=== PATIENT | female | born 1955 | race Caucasian/White ===

== ENCOUNTER 2017-09-30 16:49 | Emergency (ER) | payer MEDICAID, SELFPAY ==
[2017-09-30] VITALS (7 sets, daily range): BP systolic 103–118; BP diastolic 59–80; PULSE 82–109; RESP 18–29; TEMP 37.1; O2SAT 80–96; BMI 20.7
--- NOTE | 2017-09-30 16:53 | EKG12_ITS ---
Test Reason : CP/SOB Blood Pressure : / mmHG Vent. Rate : 107 BPM Atrial Rate : 107 BPM P-R Int : 150 ms QRS Dur : 092 ms QT Int : 328 ms P-R-T Axes : 057 002 061 degrees QTc Int : 437 ms Sinus tachycardia with frequent Premature ventricular complexes Otherwise normal ECG Confirmed by NOAH COTTON, ALAN ([id number]), electronic news gathering editor LAZARO LOBO ([id number]) on 10/04/2017 2:17:17 PM Referred By: IRKI/DAISY Confirmed By:ALAN ZAMORA MD
[2017-09-30] MEDS: Ipratropium/Albuterol Sulfate 3 ML AMPUL.NEB INHALATION (17:00)
--- NOTE | 2017-09-30 17:00 | RAD_ITS ---
XR Chest 1 View INDICATION: SOB/DYSPNEA COMPARISON: June 05, 2016 TECHNIQUE: Portable chest x-ray FINDINGS: Heart size and pulmonary vascularity are within normal limits. Lungs are hyperinflated with coarsened interstitial markings and flattening of the diaphragm, unchanged from previous exam. There is no evidence of focalconsolidation or pleural effusion. Osseous structures are grossly unremarkable. RAD/Chest 1 View (Portable) IMPRESSION: Stable COPD/emphysema. No active infiltrate. at 1736 Reported and signed by: Jeni Cintron MD Electronically Signed: Jeni Cintron MD at 16:34 EDT Tel , Service support ,
[2017-09-30] MEDS: MethylPREDNISolone 125 MG/2 ML Vial IV (17:14)
--- NOTE | 2017-09-30 17:18 | ED.VISSUMM ---
- ER Visit Summary Date of Service: 09/30/17 Chief Complaint: [] Shortness of breath History of Present Illness: The patient is a 62 F [] history of COPD on home O2 3 L primarily at night, reports that for 4 days she has had cough shortness of breath low-grade fever she was seen by her physicians Wednesday workup was generally unremarkable she was started on oral steroids and placed on a doxycycline prescription [id number] not use until Wednesday she seemed more short of breath today and she came in for evaluation, the rest of her health status is stable and unchanged she has no chest pain abdominal pain no paresthesias the daughter came in and states that sometimes her mother seems to get nervous and anxious related to the breathing her baseline pulse ox on 3 L is about 91% max currently the patient's on oxygen she received an aerosol she is feeling better at her baseline Physical Examination: [] Her pulse ox here on 3 L about 93% she is awake and alert answering questions appropriately there is no signs of respiratory distress or cardiopulmonary failure her neck is unremarkable her lungs are diminished the heart tones are distant the abdomen soft nontender upper lower extremities unremarkable she is a thin woman neurologically she is awake alert moving all 4 Test Results: [] Emergency Department Course and Treatment: [] The patient is back to her baseline now she does see Dr. Monet of pulmonary she has been having this intermittent spells of shortness of breath for some time dating back to May 2017 when she reports that her inhalers were changed due to insurance issues, and that basically she is currently on DuoNeb and one other inhaler. However despite the change she was at baseline until Wednesday. She has no history of PA PE or DVT Her EKG sinus rhythm her labs chest x-ray otherwise unremarkable nothing really acute please see all those reports on reevaluation she is much better her pulse ox remained stable she was given a dose of doxycycline here she has a prescription to use at home she is comfort with discharge home follow with her physicians as this is an ongoing intermittent shortness of breath problem. Her BNP has not returned and has been hours there may be an issue in lab with that machine but she has no history of CHF radiographic or physical findings She is concerned that the medication she was taking in April 2017 that were switched to new medications related to insurance reasons, she actually felt better on the older meds I have asked her to discuss that with her physicians and her insurance providers but again she is comfortable with discharge home Treatment Plan: [] Disposition: [] Home stable Impression: [] Exacerbation of COPD This note was generated with Xquva dictation software. It may contain incorrect words, spelling, and punctuation that were not noted in review of the chart prior to signing ED Disposition - Plan for ED Patient: Chief Complaint: Shortness of Breath Referrals: Krish Martinez MD [Primary Care Provider] -
[2017-09-30 18:15] LABS: Absolute Lymphocyte Count 0.52 X10^3/ul (0.83-4.51); Absolute Neutrophil Count 10.3 X10^3/uL (2.0-7.7); Basophil# 0.01 X10^3/uL; Basophil% 0.1 % (0-1); Eosinophil# 0.01 X10^3/uL; Eosinophils% 0.1 % (0-5); Hematocrit 36.3 % (37-47); Hemoglobin 12.1 g/dl (12.0-15.0); Lymphocyte # 0.52 X10^3/ul (4.0); Lymphocyte % 4.5 % (19-41); Mean Corp Hgb Conc 33.3 g/gl (32-36); Mean Corpuscular Hgb 30.6 pg (27.0-32.0); Mean Corpuscular Volume 91.7 fL (81-99); Mean Platelet Vol. 9.6 fl (6.2-12.0); Monocyte# 0.73 X10^3/uL; Monocyte% 6.3 % (0-10); Neutrophil # 10.25 X10^3/uL (2.7-7.7); Neutrophil % 88.7 % (47-70); Platelet Count 250 K/mm3 (150-450); RBC Distribution Width CV 12.3 % (11.6-14.6); RBC Distribution Width SD 40.3 fl (35.1-43.9); Red Blood Count 3.96 M/mm3 (4.2-5.4); White Blood Count 11.6 K/mm3 (4.4-11.0)
[2017-09-30 18:18] LABS: Anion Gap 7 (5-15); BUN 7 mg/dL (7-18); BUN/Creat Ratio 12.7 RATIO (10-20); Calcium,Total 8.4 mg/dL (8.5-10.1); Chloride 99 mmol/L (98-107); Creatinine, Serum 0.55 mg/dL (0.55-1.02); EST Glomerular Filtration Rate 119 mL/min (>60); Est Glom Filt Rate - Afr Amer 144 mL/min (>60); Estimated Creatinine Clearance 89.98 ml/min; Glucose 103 mg/dL (74-106); Potassium 3.9 mmol/L (3.5-5.1); Sodium Level 133 mmol/L (136-145)
[2017-09-30 18:19] LABS: Differential Indicated SCAN CRITERIA MET; POSITIVE COUNT NO; POSITIVE DIFFERENTIAL YES; POSITIVE MORPHOLOGY NO
[2017-09-30] MEDS: Doxycycline 100 MG CAPSULE PO (18:51)
--- NOTE | 2017-09-30 19:18 | ED.DEP ---
ED Disposition - Plan for ED Patient: Chief Complaint: Shortness of Breath Instructions: ED COPD Flare Referrals: Krish Martinez MD [Primary Care Provider] -
[2017-09-30 19:22] LABS: BNP,B-Type NATRIURETIC PEPTIDE 70.5 pg/mL (0-100)
[2017-09-30 19:46] LABS: Differential Comment SCANNED; Platelet Estimate ADEQUATE (ADEQ)
== END 2017-09-30 19:48 | disposition home or self-care (01) ==
PROVIDERS: Emergency Provider Emergency Medicine; Family Provider Family Medicine; PCP Family Medicine
DX: J44.1 Chronic obstructive pulmonary disease with (acute) exacerbation (principal); Z99.81 Dependence on supplemental oxygen; Z79.52 Long term (current) use of systemic steroids; Z79.899 Other long term (current) drug therapy
CPT/HCPCS: 71045; 80048; 83880; 84484; 85025; 93005; 94640; 96374; 99284; A4216

== ENCOUNTER 2017-10-16 10:20 | Inpatient (IN) | payer MEDICAID, SELFPAY ==
[2017-10-16] VITALS (8 sets, daily range): BP systolic 88–124; BP diastolic 43–66; PULSE 20–120; RESP 17–29; TEMP 36.7–38.2; O2SAT 92–98; BMI 20.8; BMI 20.5
--- NOTE | 2017-10-16 10:42 | EKG12_ITS ---
Test Reason : SOB Blood Pressure : / mmHG Vent. Rate : 105 BPM Atrial Rate : 105 BPM P-R Int : 176 ms QRS Dur : 092 ms QT Int : 342 ms P-R-T Axes : 041 -04 057 degrees QTc Int : 452 ms Sinus tachycardia Otherwise normal ECG Confirmed by LE COTTON, RACHEAL ([id number]), purchase request editor LAZARO LOBO ([id number]) on 10/18/2017 1:57:58 PM Referred By: MICHELLE Confirmed By:RACHEAL LUJAN MD
--- NOTE | 2017-10-16 10:42 | RAD_ITS ---
STUDY: X-RAY CHEST REASON FOR EXAM: Female, 62 years old. Not feeling well, cough. TECHNIQUE: PA and lateral views of the chest. COMPARISON: None. FINDINGS: There is hyperinflation of the lungs consistent with chronic obstructive lung disease (COPD). There is developing right lower lobe airspace disease compared to previous exam. Small right effusion is present. There is no demonstrated pleural abnormality. Normal size heart. Normal mediastinum and krishna. Normal visualized pulmonary arteries. There is atherosclerotic calcification of the aortic arch with tortuosity. There are diffuse degenerative changes of the visualized thoracic spine. Normal visualized ribs, clavicles, and shoulders. There is no demonstrated abnormality of the visualized soft tissue structures of the upper abdomen. RAD/Chest PA and Lateral IMPRESSION: COPD changes with developing right lower lobe airspace disease and effusion concerning for acute infectious infiltrate, clinically correlate. Electronically Signed: Benjamin Munoz DO at 12:05 EDT , Service support ,
[2017-10-16] MEDS: MethylPREDNISolone 125 MG/2 ML Vial IV (10:55)
[2017-10-16] MEDS: Ipratropium/Albuterol Sulfate 3 ML AMPUL.NEB INHALATION (10:55)
[2017-10-16] MEDS: 0.9% Normal Saline 1,000 ML 999 ML IV (10:56)
[2017-10-16 11:11] LABS: Absolute Lymphocyte Count 0.61 X10^3/ul (0.83-4.51); Absolute Neutrophil Count 11.3 X10^3/uL (2.0-7.7); Basophil# 0.02 X10^3/uL; Basophil% 0.2 % (0-1); Eosinophil# 0.01 X10^3/uL; Eosinophils% 0.1 % (0-5); Hematocrit 40.1 % (37-47); Lymphocyte # 0.61 X10^3/ul (4.0); Lymphocyte % 4.9 % (19-41); Mean Corp Hgb Conc 32.4 g/gl (32-36); Mean Corpuscular Hgb 30.4 pg (27.0-32.0); Mean Corpuscular Volume 93.9 fL (81-99); Mean Platelet Vol. 9.5 fl (6.2-12.0); Monocyte# 0.57 X10^3/uL; Monocyte% 4.6 % (0-10); Neutrophil # 11.27 X10^3/uL (2.7-7.7); Platelet Count 200 K/mm3 (150-450); RBC Distribution Width CV 13.3 % (11.6-14.6); RBC Distribution Width SD 44.4 fl (35.1-43.9); Red Blood Count 4.27 M/mm3 (4.2-5.4); White Blood Count 12.5 K/mm3 (4.4-11.0)
[2017-10-16 11:12] LABS: POSITIVE COUNT NO; POSITIVE DIFFERENTIAL NO; POSITIVE MORPHOLOGY NO
[2017-10-16 11:18] LABS: Bacteria 0 SEEN /hpf (None Seen); Mucous, Urine 0 SEEN /hpf (<or=2+); Squamous Epithelial Cells - UA 0 SEEN /hpf (5-10); White Blood Cells 0 SEEN /hpf (0-5)
[2017-10-16 11:26] LABS: Anion Gap 9 (5-15); BUN 8 mg/dL (7-18); BUN/Creat Ratio 10.7 RATIO (10-20); Calcium,Total 8.4 mg/dL (8.5-10.1); Chloride 102 mmol/L (98-107); Creatinine, Serum 0.75 mg/dL (0.55-1.02); EST Glomerular Filtration Rate 84 mL/min (>60); Est Glom Filt Rate - Afr Amer 102 mL/min (>60); Estimated Creatinine Clearance 63.09 ml/min; Glucose 100 mg/dL (74-106); Potassium 3.6 mmol/L (3.5-5.1); Sodium Level 140 mmol/L (136-145)
[2017-10-16 11:34] LABS: Lactic Acid 1.2 mmol/L (0.4-2.0)
--- NOTE | 2017-10-16 11:34 | ED.DCSUM_ITS ---
- ER Visit Summary Date of Service: 10/16/17 Chief Complaint: Shortness of breath and cough History of Present Illness: The patient is a [address] Martinez and Dr. Viera. She reports that she has a cough that began yesterday. Is productive saucedo sputum without blood. She has had subjective fever and chills with this. She reports that she has severe shortness of breath at worst and moderate currently. Is worsened by exertion, lying flat, or coughing. States that she has been nauseated, but has not thrown up. She also complains of frequency and generalized weakness. Physical Examination: Vitals: 100.1, 124/64, 120, 17, 90% on 2 L nasal cannula. General: Well-nourished and well-developed. Head: Normocephalic atraumatic. Neck: Supple, no lymphadenopathy. No JVD. Nontender. Cardiovascular: Tachycardic regular rhythm. No murmurs. Respiratory: No respiratory distress. Mild wheezing bilaterally with greatly decreased air movement. Abdominal: Soft, nontender, nondistended, normal bowel sounds. No guarding, rebound, or peritoneal signs. Back: Nontender. Extremities: Nontender, no edema. Skin: Normal color, no rash. Neurologic: Alert and oriented ?3. Cranial nerves II through XII are intact. Normal strength and sensation. Psych: Normal affect. Test Results: EKG is sinus tach at 105 with no acute changes. CBC is marked for white count 12.5 with 90 segmented neutrophils and 5 lymphocytes. Chem-7 more for calcium of 8.4. Lactic acid is 1.2. UA is negative. Chest x-ray shows right middle lobe infiltrate. Emergency Department Course and Treatment: Patient had an IV placed. She was given Solu-Medrol IV. She was given albuterol Atrovent aerosols. She is resting more comfortably. She was treated with Rocephin and Zithromax IV. Treatment Plan: The patient will be discussed the hospitalist and admitted for further evaluation and treatment. Disposition: Admitted in improved condition. Impression: 1. Pneumonia, community acquired. 2. COPD. This note was generated with Carter[employer]Waters[employer] software. It may contain incorrect words, spelling, and punctuation that were not noted in review of the chart prior to signing ED Disposition - Plan for ED Patient: Chief Complaint: Shortness of Breath Referrals: Krish Martinez MD [Primary Care Provider] -
[2017-10-16 11:35] LABS: Color, Urine Yellow (Yellow); Glucose, Dipstick Normal (Normal); Ketone-Dipstick Negative (Negative); Leukocyte Esterase-Dipstick 25 /ul (Negative); Nitrite-Dipstick Negative (Negative); Occult Blood-Urine 50 /ul (Negative); Protein-Dipstick 15 mg/dl (Negative); Urine Bilirubin Dipstick Negative (Negative); Urine Clarity Clear (Clear); Urine Urobilinogen Normal (Normal); Urine pH 6.5 (5.0 - 8.0)
[2017-10-16 11:38] LABS: Red Blood Cells-Urine 0-5 SEEN /hpf (0-5)
[2017-10-16] MEDS: Ceftriaxone 1 GM/50 ML BAG IV (12:21)
--- NOTE | 2017-10-16 13:37 | PCM.HP.STD ---
Problem List (1) CAP (community acquired pneumonia) Status: Acute (2) Acute exacerbation of chronic obstructive pulmonary disease (COPD) Status: Acute (3) Tobacco dependence due to cigarettes Status: Chronic (4) Chronic hypoxemic respiratory failure Status: Chronic (5) COPD (chronic obstructive pulmonary disease) Status: Chronic (6) Anxiety Status: Acute (7) Insomnia Status: Acute (8) History of diabetes mellitus Status: Chronic Comment: resolved with weight loss (9) History of essential hypertension Status: Chronic Comment: resolved with weight loss (10) Osteoporosis Status: Acute History of Present Illness Date of Admission: 10/16/17 Chief Complaint: cough, SOB, nausea and chills The patient is a 62 year old F with a PMH of COPD, tobacco dependence, chronic respiratory failure with hypoxemia, GERD, osteoporosis, DM and HTN that resolved with weight loss and kyphosis who presented to the ED at [facility] on 10/16/2017 complaining of cough productive of yellow sputum, chills, nausea and shortness of breath. She was also seen in the ED in early September for SOB and had a 10 days course of Prednisone. She has been on prednisone at least 4 times since the beginning of the year. She use oxygen only at night. She follows with Dr. Viera. She smokes 1 PPD of cigarettes. She is also c/o pain in the right ribs and the R posterior thorax that increases with coughing and deep breathing. Vital signs at presentation to the emergency department were temperature 100.1?F, pulse rate 120, blood pressure 124/64, respiratory rate 17 and she was 92-97% saturated on a 2 L nasal cannula. White blood cell count was elevated at 12.2 with 90% neutrophils. Hemoglobin and platelets were within normal limits. Electrolytes, BUN and creatinine were normal. A random blood sugar was normal at 100. UA had 0 WBCs. Chest x-ray showed hyperinflation with infiltrate in the right middle lobe. She was wheezing in the ER and was give a DuoNeb aerosol and 125 mg of Solu-Medrol. She was admitted to the hospital with a diagnosis of community-acquired pneumonia, acute exacerbation of PRODUCTION TEAM LEADER and acute on chronic respiratory failure. Past Medical History Past Medical History (Chronic Problems): Chronic Problems Tobacco dependence due to cigarettes (Chronic) Chronic hypoxemic respiratory failure (Chronic) COPD (chronic obstructive pulmonary disease) (Chronic) History of diabetes mellitus (Chronic) resolved with weight loss History of essential hypertension (Chronic) resolved with weight loss Allergies Penicillins Allergy (Verified 10/16/17 10:21) Unknown doxycycline Adverse Reaction (Verified 10/16/17 10:21) Other MAKES ME FEEL WEIRD levofloxacin [From Levaquin] Adverse Reaction (Verified 10/16/17 10:21) Other MAKES HEAD FEEL LIKE IT IS PRESSURIZED Home Medications: Ambulatory Orders Medication Instructions Recorded Diazepam [Valium] 5 mg PO DAILY PRN PRN 08/24/13 Ergocalciferol [Vitamin D] 50,000 unit PO Q7D 09/30/17 Estradiol [Estrace Vaginal Cream] 1 dose VAGINAL DAILY 09/30/17 Fluticasone/Salmeterol 1 each IH BID 09/30/17 [Fluticasone-Salmeterol 113-14] Hydrocodone/Acetaminophen [Beltrami 1 each PO PRN PRN 09/30/17 5-325 Tablet] Ipratropium/Albuterol Sulfate 3 ml INHALATION Q6H.RT PRN 09/30/17 [Duoneb] Loratadine 10 mg PO DAILY PRN 09/30/17 Polyethylene Glycol 3350 [Miralax] 17 gm PO DAILY PRN 09/30/17 Surgical History: cholecystectomy, - - Tubal ligation, surgical lung biopsy at 26 years Psychiatric History: Anxiety 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 Denies: Difficulty Hearing, Difficulty Swallowing, Ear Pain, Head Aches, Sinus Congestion, Sinus Drainage Cardiovascular: Reports: Chest Pain - right lateral chest, Claudication - pains in the calves that increase with walking. Denies: Edema, Light Headedness, Orthopnea, Palpitations, Paroxysmal Noc. Dyspnea, Syncope Respiratory: Reports: Cough, Pleuritic Pain, Shortness of Breath, Sputum production - yellow Gastrointestinal: Reports: Dyspepsia, Nausea, - - heartburn. Denies: Abdominal Pain, Constipation, Diarrhea, Vomiting Genitourinary: Denies: Dysuria Gynecological: Denies: Breast symptoms, Vaginal discharge Musculoskeletal: Reports: Back Pain - chronic in the mid tharacic area. Denies: Arm Pain Neurological: Denies: Change in Speech, Slurred speech, Confusion, Focal weakness, Numbness, Tingling, Tremor, Seizures Psychiatric: Reports: Anxiety. Denies: Homicidal Ideations, Suicidal Ideations Endocrine: Denies: Change in Body Habitus Hematologic/ Lymphatic: Denies: Hx of blood clot VTE Information - Inpt Only VTE Present on Admission: No VTE Mechan Device Prophylaxis: SCD's VTE Pharm Prophylaxis ordered?: Yes Patient Problems: Active and Suspected Problems CAP (community acquired pneumonia) (Acute) Acute exacerbation of chronic obstructive pulmonary disease (COPD) (Acute) Anxiety (Acute) Insomnia (Acute) Osteoporosis (Acute) - Physical Exam General: Alert, Oriented x3, Cooperative, Well developed, Well nourished, - HEENT: Atraumatic, PERRLA, EOMI, Normocephalic Oral: Moist Mucosa Neck: Supple, No JVD, Negative Carotid Bruits, No Nodes, No Nuchal Rigidity, Trachea Midline Lungs: No rhonchi, No wheeze, No rales, Diminished Cardiovascular: Regular rate, Regular Rhythm, Normal S1, Normal S2, No murmurs, No Ectopic Activity, No rub noted, No Gallop Abdomen: Bowel Sounds Present, Soft, Non Tender, Non-Distended Extremities: No cyanosis, No edema, Clubbing, Diminished Peripheral Pulses Skin: No rashes Musculoskeletal: Arthritic Changes, - - she is kyphotic Lymphatic: No Cervical, Supraclavicular, or Inguinal Adenopathy Neurological: Cranial nerves II-XII grossly intact, Neuro grossly intact Psych/Mental Status: Flat Affect Vital Signs Temp Pulse Resp BP Pulse Ox 100.8 F H 99 18 108/60 94 10/16/17 13:03 10/16/17 13:03 10/16/17 13:27 10/16/17 13:03 10/16/17 13:03 Oxygen Flow Rate (L/min) 2 Oxygen Delivery Method Nasal Cannula Weight: 111 lb 15.917 oz Body Mass Index (BMI) 20.5 Assessment/Plan Active and Suspected Problems CAP (community acquired pneumonia) (Acute) Acute exacerbation of chronic obstructive pulmonary disease (COPD) (Acute) Anxiety (Acute) Insomnia (Acute) Osteoporosis (Acute) Impressions 1. CAP RML 2. acute exacerbation COPD 3. acute on chronic respiratory failure with hypoxemia 4. COPD 5. GERD 6. osteoporosis with kyphosis 7. anxiety and probable depression as well with insomnia 8. former hx of HTN and DM II - resolved with weight loss 9. + FH of a clotting disorder in her father - she has pleuritic pain that is likely due to the RML PNA but, will check a D-DIMER and if it is elevated will fet a CTA of the chest CXR - RML CAP Sputum for GM stain C&S Respiratory panel Legionella and Streptococcal antigens in the urine Around the clock aerosol treatments and Q 2H ALbuterol aerosols for SOB and wheezing High dose IV steroids Mucinex Incentive spirometry PEP therapy DVT prophylaxis with Lovenox and SCD's Ambulatory pulse ox prior to DC Code Visit Inpatient E&M: 12649 Init Hosp L2
--- NOTE | 2017-10-16 13:42 | HP.PCM_ITS ---
Problem List (1) CAP (community acquired pneumonia) Status: Acute (2) Acute exacerbation of chronic obstructive pulmonary disease (COPD) Status: Acute (3) Tobacco dependence due to cigarettes Status: Chronic (4) Chronic hypoxemic respiratory failure Status: Chronic (5) COPD (chronic obstructive pulmonary disease) Status: Chronic (6) Anxiety Status: Acute (7) Insomnia Status: Acute (8) History of diabetes mellitus Status: Chronic Comment: resolved with weight loss (9) History of essential hypertension Status: Chronic Comment: resolved with weight loss (10) Osteoporosis Status: Acute History of Present Illness Date of Admission: 10/16/17 Chief Complaint: cough, SOB, nausea and chills The patient is a 62 year old F with a PMH of COPD, tobacco dependence, chronic respiratory failure with hypoxemia, GERD, osteoporosis, DM and HTN that resolved with weight loss and kyphosis who presented to the ED at [facility] on 2017 complaining of cough productive of yellow sputum, chills, nausea and shortness of breath. She was also seen in the ED in early September for SOB and had a 10 days course of Prednisone. She has been on prednisone at least 4 times since the beginning of the year. She use oxygen only at night. She follows with Dr. Viera. She smokes 1 PPD of cigarettes. She is also c/o pain in the right ribs and the R posterior thorax that increases with coughing and deep breathing. Vital signs at presentation to the emergency department were temperature 100.1?F, pulse rate 120, blood pressure 124/64, respiratory rate 17 and she was 92-97% saturated on a 2 L nasal cannula. White blood cell count was elevated at 12.2 with 90% neutrophils. Hemoglobin and platelets were within normal limits. Electrolytes, BUN and creatinine were normal. A random blood sugar was normal at 100. UA had 0 WBCs. Chest x-ray showed hyperinflation with infiltrate in the right middle lobe. She was wheezing in the ER and was give a DuoNeb aerosol and 125 mg of Solu-Medrol. She was admitted to the hospital with a diagnosis of community-acquired pneumonia, acute exacerbation of CEMENT MIXER and acute on chronic respiratory failure. Past Medical History Past Medical History (Chronic Problems): Chronic Problems Tobacco dependence due to cigarettes (Chronic) Chronic hypoxemic respiratory failure (Chronic) COPD (chronic obstructive pulmonary disease) (Chronic) History of diabetes mellitus (Chronic) resolved with weight loss History of essential hypertension (Chronic) resolved with weight loss Allergies Penicillins Allergy (Verified 10/16/17 10:21) Unknown doxycycline Adverse Reaction (Verified 10/16/17 10:21) Other MAKES ME FEEL WEIRD levofloxacin [From Levaquin] Adverse Reaction (Verified 10/16/17 10:21) Other MAKES HEAD FEEL LIKE IT IS PRESSURIZED Home Medications: Ambulatory Orders Medication Instructions Recorded Diazepam [Valium] 5 mg PO DAILY PRN PRN 08/24/13 Ergocalciferol [Vitamin D] 50,000 unit PO Q7D 09/30/17 Estradiol [Estrace Vaginal Cream] 1 dose VAGINAL DAILY 09/30/17 Fluticasone/Salmeterol 1 each IH BID 09/30/17 [Fluticasone-Salmeterol 113-14] Hydrocodone/Acetaminophen [Charlo 1 each PO PRN PRN 09/30/17 5-325 Tablet] Ipratropium/Albuterol Sulfate 3 ml INHALATION Q6H.RT PRN 09/30/17 [Duoneb] Loratadine 10 mg PO DAILY PRN 09/30/17 Polyethylene Glycol 3350 [Miralax] 17 gm PO DAILY PRN 09/30/17 Surgical History: cholecystectomy, - - Tubal ligation, surgical lung biopsy at 26 years Psychiatric History: Anxiety 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 Denies: Difficulty Hearing, Difficulty Swallowing, Ear Pain, Head Aches, Sinus Congestion, Sinus Drainage Cardiovascular: Reports: Chest Pain - right lateral chest, Claudication - pains in the calves that increase with walking. Denies: Edema, Light Headedness, Orthopnea, Palpitations, Paroxysmal Noc. Dyspnea, Syncope Respiratory: Reports: Cough, Pleuritic Pain, Shortness of Breath, Sputum production - yellow Gastrointestinal: Reports: Dyspepsia, Nausea, - - heartburn. Denies: Abdominal Pain, Constipation, Diarrhea, Vomiting Genitourinary: Denies: Dysuria Gynecological: Denies: Breast symptoms, Vaginal discharge Musculoskeletal: Reports: Back Pain - chronic in the mid tharacic area. Denies : Arm Pain Neurological: Denies: Change in Speech, Slurred speech, Confusion, Focal weakness, Numbness, Tingling, Tremor, Seizures Psychiatric: Reports: Anxiety. Denies: Homicidal Ideations, Suicidal Ideations Endocrine: Denies: Change in Body Habitus Hematologic/ Lymphatic: Denies: Hx of blood clot VTE Information - Inpt Only VTE Present on Admission: No VTE Mechan Device Prophylaxis: SCD's VTE Pharm Prophylaxis ordered?: Yes Patient Problems: Active and Suspected Problems CAP (community acquired pneumonia) (Acute) Acute exacerbation of chronic obstructive pulmonary disease (COPD) (Acute) Anxiety (Acute) Insomnia (Acute) Osteoporosis (Acute) - Physical Exam General: Alert, Oriented x3, Cooperative, Well developed, Well nourished, - HEENT: Atraumatic, PERRLA, EOMI, Normocephalic Oral: Moist Mucosa Neck: Supple, No JVD, Negative Carotid Bruits, No Nodes, No Nuchal Rigidity, Trachea Midline Lungs: No rhonchi, No wheeze, No rales, Diminished Cardiovascular: Regular rate, Regular Rhythm, Normal S1, Normal S2, No murmurs, No Ectopic Activity, No rub noted, No Gallop Abdomen: Bowel Sounds Present, Soft, Non Tender, Non-Distended Extremities: No cyanosis, No edema, Clubbing, Diminished Peripheral Pulses Skin: No rashes Musculoskeletal: Arthritic Changes, - - she is kyphotic Lymphatic: No Cervical, Supraclavicular, or Inguinal Adenopathy Neurological: Cranial nerves II-XII grossly intact, Neuro grossly intact Psych/Mental Status: Flat Affect Vital Signs Temp Pulse Resp BP Pulse Ox 100.8 F H 99 18 108/60 94 10/16/17 13:03 10/16/17 13:03 10/16/17 13:27 10/16/17 13:03 10/16/17 13:03 Oxygen Flow Rate (L/min) 2 Oxygen Delivery Method Nasal Cannula Weight: 111 lb 15.917 oz Body Mass Index (BMI) 20.5 Assessment/Plan Active and Suspected Problems CAP (community acquired pneumonia) (Acute) Acute exacerbation of chronic obstructive pulmonary disease (COPD) (Acute) Anxiety (Acute) Insomnia (Acute) Osteoporosis (Acute) Impressions 1. CAP RML 2. acute exacerbation COPD 3. acute on chronic respiratory failure with hypoxemia 4. COPD 5. GERD 6. osteoporosis with kyphosis 7. anxiety and probable depression as well with insomnia 8. former hx of HTN and DM II - resolved with weight loss 9. + FH of a clotting disorder in her father - she has pleuritic pain that is likely due to the RML PNA but, will check a D-DIMER and if it is elevated will fet a CTA of the chest CXR - RML CAP Sputum for GM stain C&S Respiratory panel Legionella and Streptococcal antigens in the urine Around the clock aerosol treatments and Q 2H ALbuterol aerosols for SOB and wheezing High dose IV steroids Mucinex Incentive spirometry PEP therapy DVT prophylaxis with Lovenox and SCD's Ambulatory pulse ox prior to DC Code Visit Inpatient E&M: 56212 Init Hosp L2
[2017-10-16 14:43] LABS: AST(SGOT) 11 U/L (15-37); Alanine Aminotransfer ALT/SGPT 11 U/L (13-56); Albumin, Serum 3.5 g/dL (3.2-5.0); Alkaline Phosphatase 63 U/L (45-117); Bilirubin, Direct 0.18 mg/dL (0.00-0.30); Globulin 3.7 g/dL (2.2-4.2); Magnesium 1.7 mg/dL (1.6-2.6); Phosphorus 2.7 mg/dL (2.5-4.9); Protein, Total 7.2 g/dL (6.4-8.2)
[2017-10-16 15:01] LABS: D-Dimer Quantitative (DVT/PE) 0.99 FEU/ug/m (0.27-0.49)
[2017-10-16 15:08] LABS: Hemoglobin A1c 5.5 % (4.2-6.3)
--- NOTE | 2017-10-16 15:15 | CT_ITS ---
STUDY: CTA CHEST REASON FOR EXAM: Female, 62 years old. Elevated d-dimer COPD and lung biopsy. RADIATION DOSAGE (If Supplied By Facility): CTDIvol = ( 6.52 ) mGy, DLP = ( 163.43 ) mGycm TECHNIQUE: The examination was performed with the intravenous administration of 75 ml of Isovue 370 contrast material. Post-processing of the angiographic images was performed, with multiplanar reformation and 3D reconstruction. Individualized dose optimization techniques were used for this CT. COMPARISON: Chest x-ray October 20, [address] chest August 24, 2013 FINDINGS: Normal enhancement of the main pulmonary artery and right and left pulmonary arteries. Normal enhancement of the bilateral peripheral pulmonary arteries. There is no demonstrated pulmonary embolism. Normal thoracic aorta and visualized great vessels. There is no demonstrated aortic dissection. Normal heart and pericardium. 1.5 cm pretracheal lymph node. Subcarinal calcified lymph node. Calcified left hilar nodes. Normal visualized trachea and bronchi. Lungs are hyperinflated. Right middle lobe consolidation. Right lung base subsegmental atelectasis. Centrilobular and paraseptal emphysema. Multiple pleural-based spiculated lesions may represent subsegmental atelectasis. Normal chest wall structures. Normal osseous structures. Normal visualized upper abdomen. CT/CTA Chest W/WO Contrast IMPRESSION: Right middle lobe airspace disease. Recommend follow-up to resolution. Electronically Signed: Jake Romano MD at 17:34 EDT , Service support ,
[2017-10-16] MEDS: HYDROcodone Bitartrate/Apap 5/325 Tablet PO (16:33)
[2017-10-16] MEDS: traZODone 100 MG Tablet PO (22:49)
[2017-10-16] MEDS: 0.9% Saline Lock 10 ML Syringe IV (22:50)
[2017-10-16] MEDS: Famotidine 20 MG Tablet PO (22:50)
[2017-10-16] MEDS: guaiFENesin 1,200 MG Tablet 1200 MG PO (22:50)
[2017-10-16] MEDS: Pantoprazole Sodium 20 MG Tablet PO (22:50)
[2017-10-17] VITALS (11 sets, daily range): BP systolic 89–104; BP diastolic 46–56; PULSE 63–87; RESP 16–18; TEMP 36.6–36.9; O2SAT 95–98
[2017-10-17] MEDS: HYDROcodone Bitartrate/Apap 5/325 Tablet PO ×3 (03:42→21:04)
[2017-10-17] MEDS: Ipratropium/Albuterol Sulfate 3 ML AMPUL.NEB INHALATION ×3 (03:59→20:00)
[2017-10-17] MEDS: 0.9% Saline Lock 10 ML Syringe IV ×4 (06:29→21:05)
--- NOTE | 2017-10-17 07:09 | PCM.PROGNOTE ---
Patient Problems: Active and Suspected Problems CAP (community acquired pneumonia) (Acute) Acute exacerbation of chronic obstructive pulmonary disease (COPD) (Acute) Anxiety (Acute) Insomnia (Acute) Osteoporosis (Acute) Subjective: The patient is a 62 year old F with a PMH of COPD, tobacco dependence, chronic respiratory failure with hypoxemia, GERD, osteoporosis, DM and HTN that resolved with weight loss and kyphosis who presented to the ED at [facility] on 10/16/2017 complaining of cough productive of yellow sputum, chills, nausea and shortness of breath. Chest x-ray in the emergency room revealed a right middle lobe infiltrate and she was admitted for community acquired pneumonia and acute exacerbation of COPD. D-dimer was increased but CTA of the chest was negative for PE. There are several areas of spiculated pleural based abnormalities that may be due to focal atelectasis but, this will need to followed with a repeat CT chest in 6-8 weeks. T-max over the past 24 hours was 100.8?F. Current temp is 97.9. Vital signs are stable and she is 98% saturated on a 2 L nasal cannula today. She wears oxygen only at night as an outpatient. Legionella and streptococcal antigens in the urine were negative. Influenza swab was negative. Respiratory panel is pending. Sputum culture is pending. She did not sleep well last night....blames it on the nicotine patch but she has not been sleeping well at home for the past several months at home She admits to being anxious and depressed because she always seems to be SOB Breathing is better today. Still feeling very tired Objective: - Physical Exam General: Alert, Oriented x3, Cooperative, Well developed, Well nourished, looks more rested today despite telling me that she can not sleep HEENT: Atraumatic, PERRLA, EOMI, Normocephalic Oral: Moist Mucosa Neck: Supple, No JVD, Negative Carotid Bruits, No Nodes, No Nuchal Rigidity, Trachea Midline Lungs: No rhonchi, No rales, Diminished throughout - more so than yesterday and now with occasional mild exp wheeze. No conversational dyspnea, not tachypneic at rest, no accessory muscle use, symmetric chest rise Cardiovascular: Regular rate, Regular Rhythm, Normal S1, Normal S2, No murmurs, No Ectopic Activity, No rub noted, No Gallop Abdomen: Bowel Sounds Present, Soft, Non Tender, Non-Distended Extremities: No cyanosis, No edema, + Clubbing, Diminished Peripheral Pulses Skin: No rashes Musculoskeletal: Arthritic Changes, - - she is kyphotic Lymphatic: No Cervical, Supraclavicular, or Inguinal Adenopathy Neurological: Cranial nerves II-XII grossly intact, Neuro grossly intact Psych/Mental Status: Flat Affect - Physical Exam Vital Signs Temp Pulse Resp BP Pulse Ox 97.9 F 64 18 104/56 L 98 10/17/17 03:44 10/17/17 03:59 10/17/17 03:59 10/17/17 03:44 10/17/17 03:44 Oxygen Flow Rate (L/min) 2 Oxygen Delivery Method Nasal Cannula Weight: 111 lb 15.917 oz Body Mass Index (BMI) 20.5 Intake and Output for Last 24 Hours 10/15/17 10/16/17 10/17/17 23:59 23:59 23:59 Intake Total 1090 / 1090 1200 / 1200 Output Total 500 / 500 800 / 800 Balance 590 / 590 400 / 400 Microbiology Past 72 Hours 10/16/17 13:50 Gram Stain - Preliminary Sputum, Expectorated/Coughed 10/16/17 14:12 Influenza Types A,B Direct FA (CRISPIN) - Final Mucosa - Nose Laboratory Tests Past 24 Hrs 10/16/17 10/16/17 13:30 13:30 Vitamin D 25-Hydroxy Pending Vit D 1,25-Dihydroxy Cancelled Medical Necessity - Tobacco Use Smoking Status: Heavy Smoker (>10/day) Tobacco Use: Cigarettes - 1 pack per day Assessment/Plan Active and Suspected Problems CAP (community acquired pneumonia) (Acute) Acute exacerbation of chronic obstructive pulmonary disease (COPD) (Acute) Anxiety (Acute) Insomnia (Acute) Osteoporosis (Acute) Day #2 antibiotics Impressions 1. CAP RML 2. acute exacerbation COPD 3. acute on chronic respiratory failure with hypoxemia 4. COPD 5. GERD 6. osteoporosis with kyphosis - vitamin D, 24 hr urine for quantitative calcium and PTH are pending. Will check a TSH as well. Needs to be started on tx for osteoporosis 7. anxiety and probable depression as well with insomnia 8. former hx of HTN and DM II - resolved with weight loss 9. + FH of a clotting disorder in her father - she has pleuritic pain that is likely due to the RML PNA but, will check a D-DIMER and if it is elevated will fet a CTA of the chest 10. abnormal Chest CT with spiculated pleural based lesions on the right and emphysema Continue incentive spirometry Continue PEP therapy DVT prophylaxis with Lovenox and SCD's Ambulatory pulse ox prior to DC Make the duoneb aerosols Q4H [place] start Klonopin 0.5 mg q 12 H for anxiety Start Remeron at HS and DC the Trazodone She would like to see a different burnisher and bumper......has been seeing Dr. Viera. Will consult Dr. Owen in the AM Counselled about the results of the CT scan and the importance of smoking cessation ....she would like a nicotine patch at [place]....admits to smoking to control her anxiety consult in the AM Continue azithromycin and Rocephin Code Visit Inpatient E&M: [id number] Subs Hosp L2
--- NOTE | 2017-10-17 07:14 | PN_ITS ---
Patient Problems: Active and Suspected Problems CAP (community acquired pneumonia) (Acute) Acute exacerbation of chronic obstructive pulmonary disease (COPD) (Acute) Anxiety (Acute) Insomnia (Acute) Osteoporosis (Acute) Subjective: The patient is a 62 year old F with a PMH of COPD, tobacco dependence, chronic respiratory failure with hypoxemia, GERD, osteoporosis, DM and HTN that resolved with weight loss and kyphosis who presented to the ED at [facility] on 2017 complaining of cough productive of yellow sputum, chills, nausea and shortness of breath. Chest x-ray in the emergency room revealed a right middle lobe infiltrate and she was admitted for community acquired pneumonia and acute exacerbation of COPD. D-dimer was increased but CTA of the chest was negative for PE. There are several areas of spiculated pleural based abnormalities that may be due to focal atelectasis but, this will need to followed with a repeat CT chest in 6-8 weeks. T-max over the past 24 hours was 100.8?F. Current temp is 97.9. Vital signs are stable and she is 98% saturated on a 2 L nasal cannula today. She wears oxygen only at night as an outpatient. Legionella and streptococcal antigens in the urine were negative. Influenza swab was negative. Respiratory panel is pending. Sputum culture is pending. She did not sleep well last night....blames it on the nicotine patch but she has not been sleeping well at home for the past several months at home She admits to being anxious and depressed because she always seems to be SOB Breathing is better today. Still feeling very tired Objective: - Physical Exam General: Alert, Oriented x3, Cooperative, Well developed, Well nourished, looks more rested today despite telling me that she can not sleep HEENT: Atraumatic, PERRLA, EOMI, Normocephalic Oral: Moist Mucosa Neck: Supple, No JVD, Negative Carotid Bruits, No Nodes, No Nuchal Rigidity, Trachea Midline Lungs: No rhonchi, No rales, Diminished throughout - more so than yesterday and now with occasional mild exp wheeze. No conversational dyspnea, not tachypneic at rest, no accessory muscle use, symmetric chest rise Cardiovascular: Regular rate, Regular Rhythm, Normal S1, Normal S2, No murmurs, No Ectopic Activity, No rub noted, No Gallop Abdomen: Bowel Sounds Present, Soft, Non Tender, Non-Distended Extremities: No cyanosis, No edema, + Clubbing, Diminished Peripheral Pulses Skin: No rashes Musculoskeletal: Arthritic Changes, - - she is kyphotic Lymphatic: No Cervical, Supraclavicular, or Inguinal Adenopathy Neurological: Cranial nerves II-XII grossly intact, Neuro grossly intact Psych/Mental Status: Flat Affect - Physical Exam Vital Signs Temp Pulse Resp BP Pulse Ox 97.9 F 64 18 104/56 L 98 10/17/17 03:44 10/17/17 03:59 10/17/17 03:59 10/17/17 03:44 10/17/17 03:44 Oxygen Flow Rate (L/min) 2 Oxygen Delivery Method Nasal Cannula Weight: 111 lb 15.917 oz Body Mass Index (BMI) 20.5 Intake and Output for Last 24 Hours 10/15/17 10/16/17 10/17/17 23:59 23:59 23:59 Intake Total 1090 / 1090 1200 / 1200 Output Total 500 / 500 800 / 800 Balance 590 / 590 400 / 400 Microbiology Past 72 Hours 10/16/17 13:50 Gram Stain - Preliminary Sputum, Expectorated/Coughed 10/16/17 14:12 Influenza Types A,B Direct FA ([facility]ISPIN) - Final Mucosa - Nose Laboratory Tests Past 24 Hrs 10/16/17 10/16/17 13:30 13:30 Vitamin D 25-Hydroxy Pending Vit D 1,25-Dihydroxy Cancelled Medical Necessity - Tobacco Use Smoking Status: Heavy Smoker (>10/day) Tobacco Use: Cigarettes - 1 pack per day Assessment/Plan Active and Suspected Problems CAP (community acquired pneumonia) (Acute) Acute exacerbation of chronic obstructive pulmonary disease (COPD) (Acute) Anxiety (Acute) Insomnia (Acute) Osteoporosis (Acute) Day #2 antibiotics Impressions 1. CAP RML 2. acute exacerbation COPD 3. acute on chronic respiratory failure with hypoxemia 4. COPD 5. GERD 6. osteoporosis with kyphosis - vitamin D, 24 hr urine for quantitative calcium and PTH are pending. Will check a TSH as well. Needs to be started on tx for osteoporosis 7. anxiety and probable depression as well with insomnia 8. former hx of HTN and DM II - resolved with weight loss 9. + FH of a clotting disorder in her father - she has pleuritic pain that is likely due to the RML PNA but, will check a D-DIMER and if it is elevated will fet a CTA of the chest 10. abnormal Chest CT with spiculated pleural based lesions on the right and emphysema Continue incentive spirometry Continue PEP therapy DVT prophylaxis with Lovenox and SCD's Ambulatory pulse ox prior to DC Make the duoneb aerosols Q4H [place] start Klonopin 0.5 mg q 12 H for anxiety Start Remeron at HS and DC the Trazodone She would like to see a different leather goods sales representative......has been seeing Dr. Viera. Will consult Dr. Owen in the AM Counselled about the results of the CT scan and the importance of smoking cessation ....she would like a nicotine patch at [place]....admits to smoking to control her anxiety consult in the AM Continue azithromycin and Rocephin Code Visit Inpatient E&M: [id number] Subs Hosp L2
[2017-10-17] MEDS: Ceftriaxone 1 GM/50 ML BAG IV (09:51)
[2017-10-17] MEDS: Famotidine 20 MG Tablet PO ×2 (09:58→21:04)
[2017-10-17] MEDS: Enoxaparin 40 MG/0.4 ML Syringe SC (09:58)
[2017-10-17] MEDS: guaiFENesin 1,200 MG Tablet 1200 MG PO ×2 (09:58→21:04)
[2017-10-17] MEDS: Bisacodyl 5 MG Tablet PO (09:58)
[2017-10-17] MEDS: Pantoprazole Sodium 20 MG Tablet PO ×2 (09:58→21:04)
[2017-10-17] MEDS: clonazePAM 0.5 MG Tablet PO ×2 (12:33→12:35)
--- NOTE | 2017-10-17 20:00 | NURSING ---
[facility] NOTIFIED THAT PT ASKING FOR BREATHING TREATMENT
[2017-10-17] MEDS: Mirtazapine 15 MG Tablet PO (21:04)
[2017-10-18] MEDS: clonazePAM 0.5 MG Tablet PO (00:30)
[2017-10-18 00:46] LABS: (24 HR) Urine Calcium 118.2 mg/24 HR (42.0-353.0); 24HR UR TOTAL VOLUME 2150 ml; Calcium Urine pH Range 1; Urine Calcium (Random) 5.5 (Not Estab.)
[2017-10-18 02:54] VITALS: BP 109/63; PULSE 66; RESP 16; TEMP 36.5; O2SAT 98
[2017-10-18 02:59] VITALS: RESP 16
[2017-10-18] MEDS: HYDROcodone Bitartrate/Apap 5/325 Tablet PO (05:39)
[2017-10-18] MEDS: 0.9% Saline Lock 10 ML Syringe IV ×2 (05:40→09:50)
[2017-10-18 07:01] VITALS: PULSE 79; RESP 16; O2SAT 98
[2017-10-18] MEDS: Ipratropium/Albuterol Sulfate 3 ML AMPUL.NEB INHALATION ×2 (07:01→11:02)
--- NOTE | 2017-10-18 08:21 | PCM.CONS.GEN ---
Problem List (1) CAP (community acquired pneumonia) Status: Acute Qualifiers: Laterality: right Lung location: middle lobe of lung Qualified Code(s): J18.1 - Lobar pneumonia, unspecified organism (2) Acute exacerbation of chronic obstructive pulmonary disease (COPD) Status: Acute (3) Tobacco dependence due to cigarettes Status: Chronic (4) Chronic hypoxemic respiratory failure Status: Chronic (5) Anxiety Status: Chronic (6) Insomnia Status: Chronic (7) History of diabetes mellitus Status: Chronic Comment: resolved with weight loss (8) History of essential hypertension Status: Chronic Comment: resolved with weight loss (9) Osteoporosis Status: Chronic Reason for Consult Date of Consultation: 10/18/17 Reason for Consultation: COPD exac, CAP, abnormal chest CT History of Present Illness: The patient is a 62 year old F with past medical history of self-reported COPD, tobacco abuse, and chronic respiratory failure with hypoxia, presented to the ED on 10/16/17 with complaints of increased dyspnea on exertion, productive cough of yellow sputum, nausea, and weakness. The patient was in the emergency room on September 30 with similar symptoms, she was sent home with doxycycline. She denies any fever or chills, but states she wakes up sweating at night. Patient reports she follows with Dr. Viera from [facility] and has had multiple rounds of antibiotics and steroids since June with no significant improvement. Her dyspnea returns within 2 days of being off of steroids. She notes that she typically has at least one steroid taper every 2 months for the past year. She last had pneumonia in August 2016. Blood work in the ED showed a white count of 12,500, chemistry unremarkable. Lactate was normal. Chest x-ray showed hyperinflation consistent with COPD, developing right lower lobe airspace disease and effusion concerning for infiltrate. D-dimer was elevated at 0.99, therefore CTA of the chest obtained and was negative for PE. Did show a right middle lobe consolidation and multiple pleural-based spiculated lesions that may represent subsegmental atelectasis. Initial vital signs BP 124/64, pulse 120, RR 17, 100.1?F, 92% on 2 L of oxygen. Blood cultures showed no growth in 48 hours. Urine strep/Legionella antigens negative. Influenza screening negative, viral respiratory panel is pending. Sputum culture preliminary showing mixed normal respiratory jazz. Patient was given Solu-Medrol, bronchodilators, and Rocephin and Zithromax in the ED and was admitted to the medical surgical floor for further management. She is currently on IV antibiotics, DuoNeb and albuterol aerosols, Mucinex, and IV Solu-Medrol. She has been maintained on 2 L of oxygen supplementation. Patient reports 20 pound weight loss, but over the last 3 years. She states it is due to the steroid use because she cannot eat when taking prednisone. Patient complains of night sweats and orthopnea. Patient wears 2L of oxygen at night, however has increased this to 3 L at times, she does wear intermittently throughout the day if she feels too short of breath. She denies any post nasal drip, sinus congestion, dizziness, or syncope. The patient continues to smoke a pack a day for the past 43 years. She has been told she has had apneic events when she had her overnight pulse oximetry, however has never had a sleep study. She denies any nocturia. Denies shortness of breath at rest. States she often feels anxious related to her breathing. She is depressed. Patient's baseline inhaler medications include albuterol inhaler and DuoNeb aerosols. Patient reports she was recently on Dulera, but the insurance quit paying for it so she was switched to the DuoNeb aerosols. She felt better on the Dulera and states the DuoNeb aerosols do not seem to work for her. She does take Valium as needed for her anxiety and loratadine for allergies. Past Medical History Past Medical History (Chronic Problems): Chronic Problems Tobacco dependence due to cigarettes (Chronic) Chronic hypoxemic respiratory failure (Chronic) COPD (chronic obstructive pulmonary disease) (Chronic) Anxiety (Chronic) Insomnia (Chronic) History of diabetes mellitus (Chronic) resolved with weight loss History of essential hypertension (Chronic) resolved with weight loss Osteoporosis (Chronic) Allergies Penicillins Allergy (Verified 10/16/17 10:21) Unknown doxycycline Adverse Reaction (Verified 10/16/17 10:21) Other MAKES ME FEEL WEIRD levofloxacin [From Levaquin] Adverse Reaction (Verified 10/16/17 10:21) Other MAKES HEAD FEEL LIKE IT IS PRESSURIZED Home Medications: Ambulatory Orders Medication Instructions Recorded Diazepam [Valium] 5 mg PO DAILY PRN PRN 08/24/13 Ergocalciferol [Vitamin D] 50,000 unit PO Q7D 09/30/17 Estradiol [Estrace Vaginal Cream] 1 dose VAGINAL DAILY 09/30/17 Fluticasone/Salmeterol 1 each IH BID 09/30/17 [Fluticasone-Salmeterol 113-14] Hydrocodone/Acetaminophen [[place] 1 each PO PRN PRN 09/30/17 5-325 Tablet] Ipratropium/Albuterol Sulfate 3 ml INHALATION Q6H.RT PRN 09/30/17 [Duoneb] Loratadine 10 mg PO DAILY PRN 09/30/17 Polyethylene Glycol 3350 [Miralax] 17 gm PO DAILY PRN 09/30/17 Surgical History: cholecystectomy, - - Tubal ligation, surgical lung biopsy at 26 years Psychiatric History: Anxiety, Depression [employer] History: No pertinent [employer] history Lives: Spouse/ Significant Other, - - daughter and son-in-law as well Smoking Status: Heavy Smoker (>10/day) Tobacco Use: Cigarettes - 1 pack per day Alcohol: Rare Drugs: None - *Family History Maternal History Items: No pertinent history Paternal History Items: Clotting Disorder, COPD Sibling History Items: Clotting Disorder - both sisters, COPD Review of Systems Constitutional: Reports: Anorexia, Chills - resolved, Fever - resolved, Night Sweats, Weight Change - steady weight loss x3 yrs, approx 20#, Fatigue Eyes: Denies: Vision Change HEENT: Reports: Post Nasal Drip, - - throat tight. Denies: Difficulty Swallowing, Dysphasia, Nasal bleeding, Nasal Congestion, Sinus Congestion, Sinus Drainage, Sore Throat Cardiovascular: Reports: Chest Tightness, Orthopnea. Denies: Chest Pain, Edema, Light Headedness, Palpitations, Paroxysmal Noc. Dyspnea, Syncope Respiratory: Reports: Cough, Shortness of breath upon exertion, Sputum production, Wheezing. Denies: Hemoptysis, Shortness of breath at rest Gastrointestinal: Reports: Nausea - Resolved. Denies: Abdominal Pain, Constipation, Diarrhea, Dyspepsia, Hematemesis, Hematochezia, Melena, Vomiting Genitourinary: Denies: Dysuria, Frequency, Hematuria, Nocturia, Retention Gynecological: Denies: Breast symptoms Musculoskeletal: Denies: Back Pain, Neck Pain Skin: Denies: Rash, Wounds Neurological: Denies: Balance problems, Change in Speech, Confusion, Difficulty swallowing, Focal weakness, Numbness, Tingling, Tremor, Seizures Psychiatric: Reports: Anxiety, Depression. Denies: Suicidal Ideations Endocrine: Denies: Change in Body Habitus, Polydipsia, Polyuria Hematologic/ Lymphatic: Denies: Adenopathy, Anemia, Easy Bruising, Easy Bleeding, Hx of blood clot, Hx of blood transfusion Patient Problems: Active and Suspected Problems CAP (community acquired pneumonia) (Acute) Acute exacerbation of chronic obstructive pulmonary disease (COPD) (Acute) Subjective: The patient was seen and examined. She is sitting up in bed in no acute distress. Reports her wheezing and cough has somewhat improved, still producing white to yellow sputum. Denies any fever or chills over the last 24 hours. Denies any shortness of breath at rest, palpitations, nausea, vomiting, or diarrhea. Objective: Clinical Impression(s) from Imaging Studies Chest X-Ray 10/16/17 10:42 IMPRESSION: COPD changes with developing right lower lobe airspace disease and effusion concerning for acute infectious infiltrate, clinically correlate. Electronically Signed: Benjamin Munoz DO at 12:05 EDT , Service support , Chest CTA 10/16/17 15:15 IMPRESSION: Right middle lobe airspace disease. Recommend follow-up to resolution. Electronically Signed: Jake Romano MD at 17:34 EDT , Service support , - Physical Exam General: Alert, Oriented x3, Cooperative, No apparent distress, - - No conversational dyspnea. Cachectic HEENT: Atraumatic, Normocephalic Oral: Moist Mucosa Neck: Supple, No JVD, No Nodes, Trachea Midline, Thyroid Normal Size and Texture Lungs: - - Diminished throughout with faint wheeze, no rhonchi or rales. No dullness to percussion and equal expansion. Cardiovascular: Regular rate, Regular Rhythm, Normal S1, Normal S2, No murmurs, No rub noted, No Gallop Abdomen: Bowel Sounds Present, Soft, Non Tender, Non-Distended Extremities: No clubbing, No cyanosis, No edema, Capillary Refill Less than 3 Seconds, No Calf Tenderness, Peripheral Pulses Normal Skin: No rashes, No breakdown Musculoskeletal: No Tenderness to Palpation of Joints or Extremities Lymphatic: No Cervical, Supraclavicular, or Inguinal Adenopathy Neurological: Cranial nerves II-XII grossly intact, Neuro grossly intact, Motor Exam 5/5 strength throughout Psych/Mental Status: Flat Affect, - - Cooperative, conversive and answering questions appropriately. Vital Signs Temp Pulse Resp BP Pulse Ox 97.7 F L 79 16 109/63 98 10/18/17 02:54 10/18/17 07:01 10/18/17 07:01 10/18/17 02:54 10/18/17 07:01 Oxygen Flow Rate (L/min) 2 Oxygen Delivery Method Nasal Cannula Weight: 111 lb 15.917 oz Body Mass Index (BMI) 20.5 Intake and Output for Last 24 Hours 10/16/17 10/17/17 10/18/17 23:59 23:59 23:59 Intake Total 1090 / 1090 3350 / 3350 420 / 420 Output Total 500 / 500 1600 / 1600 1100 / 1100 Balance 590 / 590 1750 / 1750 -680 / -680 Microbiology Past 72 Hours 10/16/17 13:50 Gram Stain - Final Sputum, Expectorated/Coughed Respiratory Culture - Preliminary 10/16/17 14:12 Influenza Types A,B Direct FA ([facility]) - Final Mucosa - Nose Laboratory Tests Past 24 Hrs 10/17/17 23:23 Urine pH 1 Urine Collection Time 24.0 Urine Total Volume 2150 Urine Calcium 5.5 Ur Calcium 24 Hr 118.2 Assessment/Plan Active and Suspected Problems CAP (community acquired pneumonia) (Acute) Acute exacerbation of chronic obstructive pulmonary disease (COPD) (Acute) RECOMMENDATIONS 1. Wean oxygen supplementation to keep saturations 88-92%. 2. Encourage incentive spirometer and Acapella 3. Increase activity as tolerated, ambulate 4. Continue bronchodilators, mucolytic, and antibiotics 5. Await viral/infectious workup 6. Transition steroids to oral today 7. Ambulatory pulse oximetry prior to discharge 8. Obtain records from Dr. Viera's office, [facility] 9. Follow-up in the pulmonary clinic in 2 weeks with [facility], at which time testing can be ordered if needed. Patient will need follow-up imaging in 4-6 weeks to ensure resolution of pneumonia. IMPRESSIONS 1. Acute hypoxic respiratory failure secondary to probable COPD exacerbation and community-acquired pneumonia Chest CT showing several areas of spiculated pleural-based abnormality, possible focal atelectasis versus consolidation. Patient initially febrile with mild leukocytosis, however now afebrile. Leukocytosis may be secondary to recent steroid use. She typically wears 2-3 L of oxygen supplementation at night only. She has had pulmonary function tests in the past, unsure when her last testing was. She follows with Dr. Viera. She is requesting transfer of her care to [facility], her records have been requested. To date, her infectious workup has been negative. Her viral respiratory panel is pending. Likely okay to transition to oral steroids today. Continue antibiotics and bronchodilators. Encourage incentive spirometer and Acapella, increase activity as tolerated. Patient can follow-up in the pulmonary clinic in 2 weeks with [facility], at which time her repeat testing/imaging can be ordered. 2. Tobacco abuse Patient has been counseled on smoking cessation. She is currently wearing a nicotine patch while in the hospital and is requesting a prescription upon discharge. 3. Anxiety/insomnia/osteoporosis Complicates care, management, recovery, and prognosis. Continue home medications as indicated. She has been started on an antidepressant by the hospitalist. Thank you for the opportunity to participate in this patient's care, please do not hesitate contact us with any further questions or concerns. This note was generated with [employer] software. It may contain incorrect words, spelling, and punctuation that were not noted in checking the note before signing.
--- NOTE | 2017-10-18 08:24 | CON.PCM_ITS ---
Problem List (1) CAP (community acquired pneumonia) Status: Acute Qualifiers: Laterality: right Lung location: middle lobe of lung Qualified Code(s): J18.1 - Lobar pneumonia, unspecified organism (2) Acute exacerbation of chronic obstructive pulmonary disease (COPD) Status: Acute (3) Tobacco dependence due to cigarettes Status: Chronic (4) Chronic hypoxemic respiratory failure Status: Chronic (5) Anxiety Status: Chronic (6) Insomnia Status: Chronic (7) History of diabetes mellitus Status: Chronic Comment: resolved with weight loss (8) History of essential hypertension Status: Chronic Comment: resolved with weight loss (9) Osteoporosis Status: Chronic Reason for Consult Date of Consultation: 10/18/17 Reason for Consultation: COPD exac, CAP, abnormal chest CT History of Present Illness: The patient is a 62 year old F with past medical history of self-reported COPD, tobacco abuse, and chronic respiratory failure with hypoxia, presented to the ED on 10/16/17 with complaints of increased dyspnea on exertion, productive cough of yellow sputum, nausea, and weakness. The patient was in the emergency room on September 30 with similar symptoms, she was sent home with doxycycline. She denies any fever or chills, but states she wakes up sweating at night. Patient reports she follows with Dr. Viera from [facility] and has had multiple rounds of antibiotics and steroids since June with no significant improvement. Her dyspnea returns within 2 days of being off of steroids. She notes that she typically has at least one steroid taper every 2 months for the past year. She last had pneumonia in August 2016. Blood work in the ED showed a white count of 12,500, chemistry unremarkable. Lactate was normal. Chest x-ray showed hyperinflation consistent with COPD, developing right lower lobe airspace disease and effusion concerning for infiltrate. D-dimer was elevated at 0.99, therefore CTA of the chest obtained and was negative for PE. Did show a right middle lobe consolidation and multiple pleural-based spiculated lesions that may represent subsegmental atelectasis. Initial vital signs BP 124/64, pulse 120, RR 17, 100.1?F, 92% on 2 L of oxygen. Blood cultures showed no growth in 48 hours. Urine strep/ Legionella antigens negative. Influenza screening negative, viral respiratory panel is pending. Sputum culture preliminary showing mixed normal respiratory jazz. Patient was given Solu-Medrol, bronchodilators, and Rocephin and Zithromax in the ED and was admitted to the medical surgical floor for further management. She is currently on IV antibiotics, DuoNeb and albuterol aerosols, Mucinex, and IV Solu-Medrol. She has been maintained on 2 L of oxygen supplementation. Patient reports 20 pound weight loss, but over the last 3 years. She states it is due to the steroid use because she cannot eat when taking prednisone. Patient complains of night sweats and orthopnea. Patient wears 2L of oxygen at night, however has increased this to 3 L at times, she does wear intermittently throughout the day if she feels too short of breath. She denies any post nasal drip, sinus congestion, dizziness, or syncope. The patient continues to smoke a pack a day for the past 43 years. She has been told she has had apneic events when she had her overnight pulse oximetry, however has never had a sleep study. She denies any nocturia. Denies shortness of breath at rest. States she often feels anxious related to her breathing. She is depressed. Patient's baseline inhaler medications include albuterol inhaler and DuoNeb aerosols. Patient reports she was recently on Dulera, but the insurance quit paying for it so she was switched to the DuoNeb aerosols. She felt better on the Dulera and states the DuoNeb aerosols do not seem to work for her. She does take Valium as needed for her anxiety and loratadine for allergies. Past Medical History Past Medical History (Chronic Problems): Chronic Problems Tobacco dependence due to cigarettes (Chronic) Chronic hypoxemic respiratory failure (Chronic) COPD (chronic obstructive pulmonary disease) (Chronic) Anxiety (Chronic) Insomnia (Chronic) History of diabetes mellitus (Chronic) resolved with weight loss History of essential hypertension (Chronic) resolved with weight loss Osteoporosis (Chronic) Allergies Penicillins Allergy (Verified 10/16/17 10:21) Unknown doxycycline Adverse Reaction (Verified 10/16/17 10:21) Other MAKES ME FEEL WEIRD levofloxacin [From Levaquin] Adverse Reaction (Verified 10/16/17 10:21) Other MAKES HEAD FEEL LIKE IT IS PRESSURIZED Home Medications: Ambulatory Orders Medication Instructions Recorded Diazepam [Valium] 5 mg PO DAILY PRN PRN 08/24/13 Ergocalciferol [Vitamin D] 50,000 unit PO Q7D 09/30/17 Estradiol [Estrace Vaginal Cream] 1 dose VAGINAL DAILY 09/30/17 Fluticasone/Salmeterol 1 each IH BID 09/30/17 [Fluticasone-Salmeterol 113-14] Hydrocodone/Acetaminophen [[place] 1 each PO PRN PRN 09/30/17 5-325 Tablet] Ipratropium/Albuterol Sulfate 3 ml INHALATION Q6H.RT PRN 09/30/17 [Duoneb] Loratadine 10 mg PO DAILY PRN 09/30/17 Polyethylene Glycol 3350 [Miralax] 17 gm PO DAILY PRN 09/30/17 Surgical History: cholecystectomy, - - Tubal ligation, surgical lung biopsy at 26 years Psychiatric History: Anxiety, Depression 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 Denies: Difficulty Swallowing, Dysphasia, Nasal bleeding, Nasal Congestion, Sinus Congestion, Sinus Drainage, Sore Throat Cardiovascular: Reports: Chest Tightness, Orthopnea. Denies: Chest Pain, Edema , Light Headedness, Palpitations, Paroxysmal Noc. Dyspnea, Syncope Respiratory: Reports: Cough, Shortness of breath upon exertion, Sputum production, Wheezing. Denies: Hemoptysis, Shortness of breath at rest Gastrointestinal: Reports: Nausea - Resolved. Denies: Abdominal Pain, Constipation, Diarrhea, Dyspepsia, Hematemesis, Hematochezia, Melena, Vomiting Genitourinary: Denies: Dysuria, Frequency, Hematuria, Nocturia, Retention Gynecological: Denies: Breast symptoms Musculoskeletal: Denies: Back Pain, Neck Pain Skin: Denies: Rash, Wounds Neurological: Denies: Balance problems, Change in Speech, Confusion, Difficulty swallowing, Focal weakness, Numbness, Tingling, Tremor, Seizures Psychiatric: Reports: Anxiety, Depression. Denies: Suicidal Ideations Endocrine: Denies: Change in Body Habitus, Polydipsia, Polyuria Hematologic/ Lymphatic: Denies: Adenopathy, Anemia, Easy Bruising, Easy Bleeding , Hx of blood clot, Hx of blood transfusion Patient Problems: Active and Suspected Problems CAP (community acquired pneumonia) (Acute) Acute exacerbation of chronic obstructive pulmonary disease (COPD) (Acute) Subjective: The patient was seen and examined. She is sitting up in bed in no acute distress. Reports her wheezing and cough has somewhat improved, still producing white to yellow sputum. Denies any fever or chills over the last 24 hours. Denies any shortness of breath at rest, palpitations, nausea, vomiting, or diarrhea. Objective: Clinical Impression(s) from Imaging Studies Chest X-Ray 10/16/17 10:42 IMPRESSION: COPD changes with developing right lower lobe airspace disease and effusion concerning for acute infectious infiltrate, clinically correlate. Electronically Signed: Benjamin Munoz DO at 12:05 EDT , Service support , Chest CTA 10/16/17 15:15 IMPRESSION: Right middle lobe airspace disease. Recommend follow-up to resolution. Electronically Signed: Jake Romano MD at 17:34 EDT , Service support , - Physical Exam General: Alert, Oriented x3, Cooperative, No apparent distress, - - No conversational dyspnea. Cachectic HEENT: Atraumatic, Normocephalic Oral: Moist Mucosa Neck: Supple, No JVD, No Nodes, Trachea Midline, Thyroid Normal Size and Texture Lungs: - - Diminished throughout with faint wheeze, no rhonchi or rales. No dullness to percussion and equal expansion. Cardiovascular: Regular rate, Regular Rhythm, Normal S1, Normal S2, No murmurs, No rub noted, No Gallop Abdomen: Bowel Sounds Present, Soft, Non Tender, Non-Distended Extremities: No clubbing, No cyanosis, No edema, Capillary Refill Less than 3 Seconds, No Calf Tenderness, Peripheral Pulses Normal Skin: No rashes, No breakdown Musculoskeletal: No Tenderness to Palpation of Joints or Extremities Lymphatic: No Cervical, Supraclavicular, or Inguinal Adenopathy Neurological: Cranial nerves II-XII grossly intact, Neuro grossly intact, Motor Exam 5/5 strength throughout Psych/Mental Status: Flat Affect, - - Cooperative, conversive and answering questions appropriately. Vital Signs Temp Pulse Resp BP Pulse Ox 97.7 F L 79 16 109/63 98 10/18/17 02:54 10/18/17 07:01 10/18/17 07:01 10/18/17 02:54 10/18/17 07:01 Oxygen Flow Rate (L/min) 2 Oxygen Delivery Method Nasal Cannula Weight: 111 lb 15.917 oz Body Mass Index (BMI) 20.5 Intake and Output for Last 24 Hours 10/16/17 10/17/17 10/18/17 23:59 23:59 23:59 Intake Total 1090 / 1090 3350 / 3350 420 / 420 Output Total 500 / 500 1600 / 1600 1100 / 1100 Balance 590 / 590 1750 / 1750 -680 / -680 Microbiology Past 72 Hours 10/16/17 13:50 Gram Stain - Final Sputum, Expectorated/Coughed Respiratory Culture - Preliminary 10/16/17 14:12 Influenza Types A,B Direct FA ([facility]) - Final Mucosa - Nose Laboratory Tests Past 24 Hrs 10/17/17 23:23 Urine pH 1 Urine Collection Time 24.0 Urine Total Volume 2150 Urine Calcium 5.5 Ur Calcium 24 Hr 118.2 Assessment/Plan Active and Suspected Problems CAP (community acquired pneumonia) (Acute) Acute exacerbation of chronic obstructive pulmonary disease (COPD) (Acute) RECOMMENDATIONS 1. Wean oxygen supplementation to keep saturations 88-92%. 2. Encourage incentive spirometer and Acapella 3. Increase activity as tolerated, ambulate 4. Continue bronchodilators, mucolytic, and antibiotics 5. Await viral/infectious workup 6. Transition steroids to oral today 7. Ambulatory pulse oximetry prior to discharge 8. Obtain records from Dr. Viera's office, [facility] 9. Follow-up in the pulmonary clinic in 2 weeks with INTER[facility], at which time testing can be ordered if needed. Patient will need follow-up imaging in 4-6 weeks to ensure resolution of pneumonia. IMPRESSIONS 1. Acute hypoxic respiratory failure secondary to probable COPD exacerbation and community-acquired pneumonia Chest CT showing several areas of spiculated pleural-based abnormality, possible focal atelectasis versus consolidation. Patient initially febrile with mild leukocytosis, however now afebrile. Leukocytosis may be secondary to recent steroid use. She typically wears 2-3 L of oxygen supplementation at night only. She has had pulmonary function tests in the past, unsure when her last testing was. She follows with Dr. Viera. She is requesting transfer of her care to [facility], her records have been requested. To date, her infectious workup has been negative. Her viral respiratory panel is pending. Likely okay to transition to oral steroids today. Continue antibiotics and bronchodilators. Encourage incentive spirometer and Acapella, increase activity as tolerated. Patient can follow-up in the pulmonary clinic in 2 weeks with INTERN[facility], at which time her repeat testing/imaging can be ordered. 2. Tobacco abuse Patient has been counseled on smoking cessation. She is currently wearing a nicotine patch while in the hospital and is requesting a prescription upon discharge. 3. Anxiety/insomnia/osteoporosis Complicates care, management, recovery, and prognosis. Continue home medications as indicated. She has been started on an antidepressant by the hospitalist. Thank you for the opportunity to participate in this patient's care, please do not hesitate contact us with any further questions or concerns. This note was generated with [employer]vo[employer] software. It may contain incorrect words, spelling, and punctuation that were not noted in checking the note before signing.
[2017-10-18 09:14] LABS: Vitamin D,25 Hydroxy 52.2 ng/mL (29.95-100.01)
[2017-10-18 09:16] LABS: PTHIN 50.2 pg/mL (18.4-80.1)
[2017-10-18 09:33] VITALS: BP 97/51; RESP 18; TEMP 36.8; O2SAT 96
--- NOTE | 2017-10-18 09:40 | PCM.PN.HOSP ---
Patient Problems: Active and Suspected Problems CAP (community acquired pneumonia) (Acute) Acute exacerbation of chronic obstructive pulmonary disease (COPD) (Acute) Subjective: Patient with no acute events overnight per self and per nursing report. Patient clinically improving, notes feeling improved since initial presentation with oxygenation testing without need for supplemental oxygenation. Patient notes coughing is improved as well as dyspnea sensation. Discussed tobacco cessation and patient amenable to discharge on nicotine patch. Discussed current improvement with plan for transition to oral prednisone therapy as well as oral antibiotic therapy with discharge to home with follow-up with pulmonary medicine. Patient denies fevers, chills, nausea, emesis, abdominal pain, chest pain or recurrent or worsened dyspnea. Objective: Physical Examination: General: awake, alert, oriented x 3 and cooperative, seated upright in bed in no apparent distress. Skin: normal color, turgor, no icterus, cyanosis. HEENT: AT/NC, EOMI, PERRLA, MMM. Lungs: Diminished breath sounds, greater bilateral bases, improved effort, no rales, rhonchi or wheezing. Heart: Regular rate and rhythm; no gallop, rub audible. Abdomen: soft, NTTP, ND, normal BS. Extremities: no cyanosis, clubbing, or edema. Neurological: patient awake, alert, oriented x 3; cognitive function intact; pupils equally reactive to light and accomodation; cranial nerves II-XII grossly normal, moving all 4 extremities, no focal deficits, strength, mildly to moderately globally decreased secondary to acute presentation. Psychiatric: affect appears mildly flat, no acute evidence of depressive or anxiety feelings. Vitals/I&O's: Vital Signs Temp Pulse Resp BP Pulse Ox 98.3 F 79 18 97/51 L 96 10/18/17 09:33 10/18/17 07:01 10/18/17 09:33 10/18/17 09:33 10/18/17 09:33 Oxygen Flow Rate (L/min) 2 Oxygen Delivery Method Nasal Cannula Weight: 111 lb 15.917 oz Body Mass Index (BMI) 20.5 Intake and Output for Last 24 Hours 10/16/17 10/17/17 10/18/17 23:59 23:59 23:59 Intake Total 1090 / 1090 3350 / 3350 420 / 420 Output Total 500 / 500 1600 / 1600 1100 / 1100 Balance 590 / 590 1750 / 1750 -680 / -680 Microbiology Past 72 Hours 10/16/17 13:50 Sputum, Expectorated/Coughed Gram Stain - Final 10/16/17 13:50 Sputum, Expectorated/Coughed Respiratory Culture - Preliminary 10/16/17 14:12 Mucosa - Nose Influenza Types A,B Direct FA ([facility]) - Final Laboratory Results 10/16/17 13:30: Vitamin D 25-Hydroxy 52.2 10/17/17 23:23: Urine pH 1, Urine Collection Time 24.0, Urine Total Volume 2150, Urine Calcium 5.5, Ur Calcium 24 Hr 118.2 Current Medications Hydrocodone Bitart/Acetaminophen ([place] 5mg-325mg) 1 tablet PO Q4H PRN PRN PRN Reason: SEVERE PAIN (6-1010) Last Admin: 10/18/17 05:39 Dose: 1 tablet Al Hydroxide/Mg Hydroxide (Mylanta Ii) 15 ml PO Q6H PRN PRN PRN Reason: HEARTBURN Albuterol Sulfate (Ventolin Aerosols) 2.5 mg INHALATION Q2H PRN PRN PRN Reason: SHORTNESS OF BREATH Albuterol/Ipratropium (Duoneb) 3 ml INHALATION Q4HWA.RT [facility] Last Admin: 10/18/17 07:01 Dose: 3 ml Bisacodyl (Dulcolax) 5 mg PO DAILY PRN PRN PRN Reason: Constipation Last Admin: 10/17/17 09:58 Dose: 5 mg Clonazepam (Klonopin) 0.5 mg PO Q12H [facility] Last Admin: 10/18/17 00:30 Dose: 0.5 mg Enoxaparin Sodium (Lovenox) 40 mg SC DAILY@1000 [facility] Last Admin: 10/17/17 09:58 Dose: 40 mg Ergocalciferol (Vitamin D) 50,000 unit PO Q7D [facility] Famotidine (Pepcid) 20 mg PO BID [facility] Last Admin: 10/17/17 21:04 Dose: 20 mg Guaifenesin (Mucinex) 1,200 mg PO BID [facility] Last Admin: 10/17/17 21:04 Dose: 1,200 mg Azithromycin 500 mg/ Dextrose 255 mls @ 250 mls/hr IV Q24 [facility] Stop: 10/19/17 11:02 Last Admin: 10/17/17 10:49 Dose: 250 mls/hr Ceftriaxone Sodium (Rocephin) 1 gm in 50 mls @ 100 mls/hr IV Q24 [facility] Last Admin: 10/17/17 09:51 Dose: 100 mls/hr Loratadine (Claritin) 10 mg PO DAILY PRN PRN Reason: ALLERGIES Magnesium Hydroxide (Milk Of Magnesia) 30 ml PO DAILY PRN PRN PRN Reason: Constipation Methylprednisolone (Solu-Medrol) 40 mg IV Q8 [facility] Last Admin: 10/18/17 05:40 Dose: 40 mg Mirtazapine (Remeron) 15 mg PO QHS [facility] Last Admin: 10/17/17 21:04 Dose: 15 mg Nicotine (Nicoderm Cq (Pbkc)) 14 mg TRANSDERM. DAILY [facility] Last Admin: 10/16/17 16:33 Dose: 14 mg Nutritional Formula (Lactose Free) (Ensure Enlive) 120 ml PO 4X/DAY [facility] Last Admin: 10/17/17 21:04 Dose: 120 ml Ondansetron HCl (Zofran) 4 mg IV Q8H PRN PRN PRN Reason: NAUSEA Pantoprazole Sodium (Protonix) 20 mg PO BID [facility] Last Admin: 10/17/17 21:04 Dose: 20 mg Polyethylene Glycol (Miralax) 17 gm PO DAILY PRN PRN Reason: Constipation Psyllium Hydrophilic Mucilloid (Metamucil) 1 packet PO DAILY PRN PRN PRN Reason: CONSTIPATION Sodium Chloride () 5 - 15 ml IV UD PRN PRN Reason: SALINE FLUSH Last Admin: 10/18/17 05:40 Dose: 10 ml Medical Necessity - Tobacco Use Smoking Status: Heavy Smoker (>10/day) Tobacco Use: Cigarettes - 1 pack per day Assessment/Plan Active and Suspected Problems CAP (community acquired pneumonia) (Acute) Acute exacerbation of chronic obstructive pulmonary disease (COPD) (Acute) The patient is a 62 y/o F w/ PMHx: Chronic Hypoxic and Hypercarbic Respiratory Failure w/ Chronic COPD, Tobacco use, HTN, GERD, Diabetes mellitus type II diet controlled, Chronic Back Pain who presents to the [facility] ED on 10/16/17 with dyspnea, wheezing, productive yellow sputum, chills. (1) Community Acquired Pneumonia and Acute on Chronic COPD Exacerbation w/ Chronic Hypoxic and Hypercarbic Respiratory Failure: CXR in the ED w/ right middle lobe infiltrate. Admission CBC w/ WBC 12.5 with L shift. Admitted to [place], maintained on oxygen with wean as tolerated to home oxygen supplementation, continue ATC duonebs, PRN albuterol, transition from IV solumedrol to oral prednisone, maintain on IV Rocephin and Azithromycin, HOB, IS parameters w/ pending sputum cultures, negative urine antigens, pending respiratory panel. Bld cx x 2 obtained in the ED. Obtained AM oxygenation trial for discharge planning w/ 94% on RA at rest and initial, with walking remained above 90%. 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 Discussed with pulmonary medicine and plan for discharge to home on remainder of antibiotic therapy, prednisone taper, as needed albuterol, will continue DuoNeb therapy although patient feels that these do not help pending pulmonary assessment per Dr. Owen office with prior authorization on inhaler at that time as currently cannot afford inhaler with nicotine replacement. (2) Diabetes mellitus type II Diet Controlled: Not on regimen, diet controlled, deferred accu checks w/ ISS, maintain on ADA diet. (3) Anxiety and depression: Maintain on home Klonopin and Remeron regimen. (4) Tobacco Abuse: Encouraged cessation, inpatient consultation per RT, NR if desired. (5) Hypertension, history of: BP low normal, not on regimen, trend. (6) Chronic Back Pain: Fall precautions, position changes, PRN regimen. (7) GERD: Continue home Protonix regimen. (8) DVT Prophylaxis: SCDs, lovenox.
[2017-10-18] MEDS: guaiFENesin 1,200 MG Tablet 1200 MG PO (09:42)
[2017-10-18] MEDS: Enoxaparin 40 MG/0.4 ML Syringe SC (09:43)
[2017-10-18] MEDS: Famotidine 20 MG Tablet PO (09:43)
[2017-10-18] MEDS: Pantoprazole Sodium 20 MG Tablet PO (09:43)
[2017-10-18] MEDS: Ceftriaxone 1 GM/50 ML BAG IV (09:44)
--- NOTE | 2017-10-18 09:49 | PN_ITS ---
Patient Problems: Active and Suspected Problems CAP (community acquired pneumonia) (Acute) Acute exacerbation of chronic obstructive pulmonary disease (COPD) (Acute) Subjective: Patient with no acute events overnight per self and per nursing report. Patient clinically improving, notes feeling improved since initial presentation with oxygenation testing without need for supplemental oxygenation. Patient notes coughing is improved as well as dyspnea sensation. Discussed tobacco cessation and patient amenable to discharge on nicotine patch. Discussed current improvement with plan for transition to oral prednisone therapy as well as oral antibiotic therapy with discharge to home with follow-up with pulmonary medicine. Patient denies fevers, chills, nausea, emesis, abdominal pain, chest pain or recurrent or worsened dyspnea. Objective: Physical Examination: General: awake, alert, oriented x 3 and cooperative, seated upright in bed in no apparent distress. Skin: normal color, turgor, no icterus, cyanosis. HEENT: AT/NC, EOMI, PERRLA, MMM. Lungs: Diminished breath sounds, greater bilateral bases, improved effort, no rales, rhonchi or wheezing. Heart: Regular rate and rhythm; no gallop, rub audible. Abdomen: soft, NTTP, ND, normal BS. Extremities: no cyanosis, clubbing, or edema. Neurological: patient awake, alert, oriented x 3; cognitive function intact; pupils equally reactive to light and accomodation; cranial nerves II-XII grossly normal, moving all 4 extremities, no focal deficits, strength, mildly to moderately globally decreased secondary to acute presentation. Psychiatric: affect appears mildly flat, no acute evidence of depressive or anxiety feelings. Vitals/I&O's: Vital Signs Temp Pulse Resp BP Pulse Ox 98.3 F 79 18 97/51 L 96 10/18/17 09:33 10/18/17 07:01 10/18/17 09:33 10/18/17 09:33 10/18/17 09:33 Oxygen Flow Rate (L/min) 2 Oxygen Delivery Method Nasal Cannula Weight: 111 lb 15.917 oz Body Mass Index (BMI) 20.5 Intake and Output for Last 24 Hours 10/16/17 10/17/17 10/18/17 23:59 23:59 23:59 Intake Total 1090 / 1090 3350 / 3350 420 / 420 Output Total 500 / 500 1600 / 1600 1100 / 1100 Balance 590 / 590 1750 / 1750 -680 / -680 Microbiology Past 72 Hours 10/16/17 13:50 Sputum, Expectorated/Coughed Gram Stain - Final 10/16/17 13:50 Sputum, Expectorated/Coughed Respiratory Culture - Preliminary 10/16/17 14:12 Mucosa - Nose Influenza Types A,B Direct FA (CRISPIN) - Final Laboratory Results 10/16/17 13:30: Vitamin D 25-Hydroxy 52.2 10/17/17 23:23: Urine pH 1, Urine Collection Time 24.0, Urine Total Volume 2150 , Urine Calcium 5.5, Ur Calcium 24 Hr 118.2 Current Medications Hydrocodone Bitart/Acetaminophen (Brady 5mg-325mg) 1 tablet PO Q4H PRN PRN PRN Reason: SEVERE PAIN (6-1010) Last Admin: 10/18/17 05:39 Dose: 1 tablet Al Hydroxide/Mg Hydroxide (Mylanta Ii) 15 ml PO Q6H PRN PRN PRN Reason: HEARTBURN Albuterol Sulfate (Ventolin Aerosols) 2.5 mg INHALATION Q2H PRN PRN PRN Reason: SHORTNESS OF BREATH Albuterol/Ipratropium (Duoneb) 3 ml INHALATION Q4HWA.RT [facility] Last Admin: 10/18/17 07:01 Dose: 3 ml Bisacodyl (Dulcolax) 5 mg PO DAILY PRN PRN PRN Reason: Constipation Last Admin: 10/17/17 09:58 Dose: 5 mg Clonazepam (Klonopin) 0.5 mg PO Q12H [facility] Last Admin: 10/18/17 00:30 Dose: 0.5 mg Enoxaparin Sodium (Lovenox) 40 mg SC DAILY@1000 [facility] Last Admin: 10/17/17 09:58 Dose: 40 mg Ergocalciferol (Vitamin D) 50,000 unit PO Q7D [facility] Famotidine (Pepcid) 20 mg PO BID [facility] Last Admin: 10/17/17 21:04 Dose: 20 mg Guaifenesin (Mucinex) 1,200 mg PO BID [facility] Last Admin: 10/17/17 21:04 Dose: 1,200 mg Azithromycin 500 mg/ Dextrose 255 mls @ 250 mls/hr IV Q24 [facility] Stop: 10/19/17 11:02 Last Admin: 10/17/17 10:49 Dose: 250 mls/hr Ceftriaxone Sodium (Rocephin) 1 gm in 50 mls @ 100 mls/hr IV Q24 [facility] Last Admin: 10/17/17 09:51 Dose: 100 mls/hr Loratadine (Claritin) 10 mg PO DAILY PRN PRN Reason: ALLERGIES Magnesium Hydroxide (Milk Of Magnesia) 30 ml PO DAILY PRN PRN PRN Reason: Constipation Methylprednisolone (Solu-Medrol) 40 mg IV Q8 [facility] Last Admin: 10/18/17 05:40 Dose: 40 mg Mirtazapine (Remeron) 15 mg PO QHS [facility] Last Admin: 10/17/17 21:04 Dose: 15 mg Nicotine (Nicoderm Cq (Pbkc)) 14 mg TRANSDERM. DAILY [facility] Last Admin: 10/16/17 16:33 Dose: 14 mg Nutritional Formula (Lactose Free) (Ensure Enlive) 120 ml PO 4X/DAY [facility] Last Admin: 10/17/17 21:04 Dose: 120 ml Ondansetron HCl (Zofran) 4 mg IV Q8H PRN PRN PRN Reason: NAUSEA Pantoprazole Sodium (Protonix) 20 mg PO BID [facility] Last Admin: 10/17/17 21:04 Dose: 20 mg Polyethylene Glycol (Miralax) 17 gm PO DAILY PRN PRN Reason: Constipation Psyllium Hydrophilic Mucilloid (Metamucil) 1 packet PO DAILY PRN PRN PRN Reason: CONSTIPATION Sodium Chloride () 5 - 15 ml IV UD PRN PRN Reason: SALINE FLUSH Last Admin: 10/18/17 05:40 Dose: 10 ml Medical Necessity - Tobacco Use Smoking Status: Heavy Smoker (>10/day) Tobacco Use: Cigarettes - 1 pack per day Assessment/Plan Active and Suspected Problems CAP (community acquired pneumonia) (Acute) Acute exacerbation of chronic obstructive pulmonary disease (COPD) (Acute) The patient is a 62 y/o F w/ PMHx: Chronic Hypoxic and Hypercarbic Respiratory Failure w/ Chronic COPD, Tobacco use, HTN, GERD, Diabetes mellitus type II diet controlled, Chronic Back Pain who presents to the [facility] ED on 10/16/17 with dyspnea , wheezing, productive yellow sputum, chills. (1) Community Acquired Pneumonia and Acute on Chronic COPD Exacerbation w/ Chronic Hypoxic and Hypercarbic Respiratory Failure: CXR in the ED w/ right middle lobe infiltrate. Admission CBC w/ WBC 12.5 with L shift. Admitted to [place], maintained on oxygen with wean as tolerated to home oxygen supplementation, continue ATC duonebs, PRN albuterol, transition from IV solumedrol to oral prednisone, maintain on IV Rocephin and Azithromycin, HOB, IS parameters w/ pending sputum cultures, negative urine antigens, pending respiratory panel. Bld cx x 2 obtained in the ED. Obtained AM oxygenation trial for discharge planning w/ 94% on RA at rest and initial, with walking remained above 90%. CTPA obtained during admission w/ 1.5 cm pretracheal lymph node, subcarinal calcified lymph node, calcified left hilar nodes, right middle lobe consolidation, right lung base subsegmental atelectasis, centrilobular and paraseptal emphysema, multiple pleural-based spiculated lesions possibly shared services representative of sub-segmental atelectasis with pending Pulmonary consultation given these abnormalities. Discussed with pulmonary medicine and plan for discharge to home on remainder of antibiotic therapy, prednisone taper, as needed albuterol, will continue DuoNeb therapy although patient feels that these do not help pending pulmonary assessment per Dr. Owen office with prior authorization on inhaler at that time as currently cannot afford inhaler with nicotine replacement. (2) Diabetes mellitus type II Diet Controlled: Not on regimen, diet controlled, deferred accu checks w/ ISS, maintain on ADA diet. (3) Anxiety and depression: Maintain on home Klonopin and Remeron regimen. (4) Tobacco Abuse: Encouraged cessation, inpatient consultation per RT, NR if desired. (5) Hypertension, history of: BP low normal, not on regimen, trend. (6) Chronic Back Pain: Fall precautions, position changes, PRN regimen. (7) GERD: Continue home Protonix regimen. (8) DVT Prophylaxis: SCDs, lovenox.
[2017-10-18 10:14] LABS: Absolute Neutrophil Count 10.9 X10^3/uL (2.0-7.7); Hematocrit 36.9 % (37-47); Lymphocyte % 3.5 % (19-41); Mean Corp Hgb Conc 32.5 g/gl (32-36); Mean Corpuscular Hgb 30.3 pg (27.0-32.0); Mean Corpuscular Volume 93.2 fL (81-99); Monocyte# 0.19 X10^3/uL; Monocyte% 1.7 % (0-10); Neutrophil # 10.87 X10^3/uL (2.7-7.7); Neutrophil % 94.6 % (47-70); Platelet Count 214 K/mm3 (150-450); RBC Distribution Width CV 12.9 % (11.6-14.6); RBC Distribution Width SD 42.8 fl (35.1-43.9); Red Blood Count 3.96 M/mm3 (4.2-5.4); White Blood Count 11.5 K/mm3 (4.4-11.0)
[2017-10-18 10:15] LABS: POSITIVE COUNT NO; POSITIVE DIFFERENTIAL YES; POSITIVE MORPHOLOGY NO
[2017-10-18 10:16] LABS: Differential Indicated SCAN CRITERIA MET
[2017-10-18 10:21] LABS: Anion Gap 5 (5-15); BUN 24 mg/dL (7-18); BUN/Creat Ratio 31.6 RATIO (10-20); Calcium,Total 8.5 mg/dL (8.5-10.1); Chloride 108 mmol/L (98-107); Creatinine, Serum 0.76 mg/dL (0.55-1.02); EST Glomerular Filtration Rate 83 mL/min (>60); Est Glom Filt Rate - Afr Amer 100 mL/min (>60); Estimated Creatinine Clearance 62.26 ml/min; Glucose 149 mg/dL (74-106); Potassium 3.8 mmol/L (3.5-5.1); Sodium Level 140 mmol/L (136-145)
[2017-10-18 11:02] VITALS: PULSE 80; RESP 16
[2017-10-18] MEDS: predniSONE 20 MG Tablet 40 MG PO (11:14)
--- NOTE | 2017-10-18 11:17 | CASEMGMT ---
MARIN PADILLA Face to Face with patient for initial transition planning/care coordination assessment. RN VALERIE introduced self and role at [facility]. Patient lying in bed, alert and oriented, at bedside. Patient willing to participate in assessment and is able to answer all questions appropriately. Care providers, pharmacy, and demographics verified. See link attached. Patient wishes to discharge home, denies need for home health at this time. Patient states she wears oxygen at night and will monitor for need for portable oxygen. Patient states she has no further needs or concerns at this time. CM to follow for discharge planning needs that may arise. Disposition Plan: Patient to discharge home with family support and follow-up plans in place. Will monitor for need for portable oxygen.
[2017-10-18 11:35] VITALS: O2SAT 90
--- NOTE | 2017-10-18 11:38 | PCM.DC ---
- Discharge Diagnoses Current Active Problems: Current Active and Chronic Problems CAP (community acquired pneumonia) (Acute) Acute exacerbation of chronic obstructive pulmonary disease (COPD) (Acute) Tobacco dependence due to cigarettes (Chronic) Chronic hypoxemic respiratory failure (Chronic) 2L q HS You will use the following diet at home:: Calorie/Carbohydrate Controlled (specify 1200, 1400, etc) - 1800 ADA/cardiac diet., Cardiac Your food should be the consistency of: Regular Your liquids should be the consistency of: Regular/Thin Discharge Activity: - - Avoid triggers, aggressive activity, tobacco use, continue home 2L NC at night. May resume sexual activity in: 1-2 weeks Weight Bearing Status: Weight bearing as tolerated Call your doctor if you observe: Fever of 101 or Higher, Inability to urinate, Inability to have a bowel movement, Shortness of breath, Dizziness, Fainting spells, Chest pain, Uncontrolled pain Instructions: What Is Chronic Bronchitis?, What is COPD?, Chronic Lung Disease: Preventing Lung Infections, What Is Emphysema?, What Is Pneumonia?, Preventing Pneumonia, Pneumonia Treatment, Tips for Quitting Smoking (Cardiovascular), Why Do You Smoke?, Planning to Quit Smoking, Getting Support for Quitting Smoking, Coping with Smoking Withdrawal Additional Instructions: If you continue to have loose stools you may hold your home stool softer. Allergies/Adverse Reactions: Allergies Penicillins Allergy (Verified 10/16/17 10:21) Unknown doxycycline Adverse Reaction (Verified 10/16/17 10:21) Other MAKES ME FEEL WEIRD levofloxacin [From Levaquin] Adverse Reaction (Verified 10/16/17 10:21) Other MAKES HEAD FEEL LIKE IT IS PRESSURIZED Medications to take at Discharge Diazepam [Valium] 5 mg PO DAILY PRN PRN 08/24/13 Ergocalciferol [Vitamin D] 50,000 unit PO Q7D 09/30/17 Estradiol [Estrace Vaginal Cream] 1 dose VAGINAL DAILY 09/30/17 Fluticasone/Salmeterol [Fluticasone-Salmeterol 113-14] 1 each IH BID 09/30/17 Hydrocodone/Acetaminophen [[place] 5-325 Tablet] 1 each PO PRN PRN 09/30/17 Loratadine 10 mg PO DAILY PRN 09/30/17 Polyethylene Glycol 3350 [Miralax] 17 gm PO DAILY PRN 09/30/17 Albuterol Aerosols [Ventolin Aerosols] 2.5 mg INHALATION Q2H PRN PRN #1 box 10/18/17 Azithromycin [Zithromax] 500 mg PO DAILY #1 tab 10/18/17 Cefdinir [Omnicef [equiv]] 300 mg PO Q12H 7 Days cap 10/18/17 Guaifenesin [Mucinex] 1,200 mg PO BID #20 tab 10/18/17 Ipratropium/Albuterol Sulfate [Duoneb] 3 ml INHALATION Q4HWA.RT #1 box 10/18/17 Nicotine [Nicoderm Cq] 21 mg TRANSDERM. DAILY #14 patch 10/18/17 Prednisone 10 mg PO UD #30 tab 10/18/17 The following prescriptions were given: Albuterol Aerosols [Ventolin Aerosols] 2.5 mg INHALATION Q2H PRN PRN #1 box PRN Reason: Dyspnea, wheezing Ipratropium/Albuterol Sulfate [Duoneb] 3 ml INHALATION Q4HWA.RT #1 box Azithromycin [Zithromax] 500 mg PO DAILY #1 tab Cefdinir [Omnicef [equiv]] 300 mg PO Q12H 7 Days cap Nicotine [Nicoderm Cq] 21 mg TRANSDERM. DAILY #14 patch Prednisone 10 mg PO UD #30 tab Guaifenesin [Mucinex] 1,200 mg PO BID #20 tab Primary Care Physician: Krish Martinez MD [Primary Care Provider] - Please follow up with your Primary Care Physician in: Follow-up within 3-5 days to review admission. Please Follow Up With: Wesly Owen DO When: Follow-up with Pulmonary SUPPORT SERVICES COORDINATOR within 2 weeks to establish. Call with concerns Proposed Discharge Date: 10/18/17
--- NOTE | 2017-10-18 11:42 | DCINST_ITS ---
- Discharge Diagnoses Current Active Problems: Current Active and Chronic Problems CAP (community acquired pneumonia) (Acute) Acute exacerbation of chronic obstructive pulmonary disease (COPD) (Acute) Tobacco dependence due to cigarettes (Chronic) Chronic hypoxemic respiratory failure (Chronic) 2L q HS You will use the following diet at home:: Calorie/Carbohydrate Controlled ( specify 1200, 1400, etc) - 1800 ADA/cardiac diet., Cardiac Your food should be the consistency of: Regular Your liquids should be the consistency of: Regular/Thin Discharge Activity: - - Avoid triggers, aggressive activity, tobacco use, continue home 2L NC at night. May resume sexual activity in: 1-2 weeks Weight Bearing Status: Weight bearing as tolerated Call your doctor if you observe: Fever of 101 or Higher, Inability to urinate, Inability to have a bowel movement, Shortness of breath, Dizziness, Fainting spells, Chest pain, Uncontrolled pain Instructions: What Is Chronic Bronchitis?, What is COPD?, Chronic Lung Disease : Preventing Lung Infections, What Is Emphysema?, What Is Pneumonia?, Preventing Pneumonia, Pneumonia Treatment, Tips for Quitting Smoking ( Cardiovascular), Why Do You Smoke?, Planning to Quit Smoking, Getting Support for Quitting Smoking, Coping with Smoking Withdrawal Additional Instructions: If you continue to have loose stools you may hold your home stool softer. Allergies/Adverse Reactions: Allergies Penicillins Allergy (Verified 10/16/17 10:21) Unknown doxycycline Adverse Reaction (Verified 10/16/17 10:21) Other MAKES ME FEEL WEIRD levofloxacin [From Levaquin] Adverse Reaction (Verified 10/16/17 10:21) Other MAKES HEAD FEEL LIKE IT IS PRESSURIZED Medications to take at Discharge Diazepam [Valium] 5 mg PO DAILY PRN PRN 08/24/13 Ergocalciferol [Vitamin D] 50,000 unit PO Q7D 09/30/17 Estradiol [Estrace Vaginal Cream] 1 dose VAGINAL DAILY 09/30/17 Fluticasone/Salmeterol [Fluticasone-Salmeterol 113-14] 1 each IH BID 09/30/17 Hydrocodone/Acetaminophen [[place] 5-325 Tablet] 1 each PO PRN PRN 09/30/17 Loratadine 10 mg PO DAILY PRN 09/30/17 Polyethylene Glycol 3350 [Miralax] 17 gm PO DAILY PRN 09/30/17 Albuterol Aerosols [Ventolin Aerosols] 2.5 mg INHALATION Q2H PRN PRN #1 box Azithromycin [Zithromax] 500 mg PO DAILY #1 tab 10/18/17 Cefdinir [Omnicef [equiv]] 300 mg PO Q12H 7 Days cap 10/18/17 Guaifenesin [Mucinex] 1,200 mg PO BID #20 tab 10/18/17 Ipratropium/Albuterol Sulfate [Duoneb] 3 ml INHALATION Q4HWA.RT #1 box 10/18/17 Nicotine [Nicoderm Cq] 21 mg TRANSDERM. DAILY #14 patch 10/18/17 Prednisone 10 mg PO UD #30 tab 10/18/17 The following prescriptions were given: Albuterol Aerosols [Ventolin Aerosols] 2.5 mg INHALATION Q2H PRN PRN #1 box PRN Reason: Dyspnea, wheezing Ipratropium/Albuterol Sulfate [Duoneb] 3 ml INHALATION Q4HWA.RT #1 box Azithromycin [Zithromax] 500 mg PO DAILY #1 tab Cefdinir [Omnicef [equiv]] 300 mg PO Q12H 7 Days cap Nicotine [Nicoderm Cq] 21 mg TRANSDERM. DAILY #14 patch Prednisone 10 mg PO UD #30 tab Guaifenesin [Mucinex] 1,200 mg PO BID #20 tab Primary Care Physician: Krish Martinez MD [Primary Care Provider] - Please follow up with your Primary Care Physician in: Follow-up within 3-5 days to review admission. Please Follow Up With: Wesly Owen DO When: Follow-up with Pulmonary PARACHUTE CUSHION INSTALLER within 2 weeks to establish. Call with concerns Proposed Discharge Date: 10/18/17
--- NOTE | 2017-10-18 11:54 | PCM.DC.SUM ---
Discharge Date and Diagnosis - Problem List Patient Problems: Active and Suspected Problems CAP (community acquired pneumonia) (Acute) Acute exacerbation of chronic obstructive pulmonary disease (COPD) (Acute) Date of Admission: 10/16/17 Date of Discharge: 10/18/17 - Primary Discharge Diagnosis Active and Suspected Problems CAP (community acquired pneumonia) (Acute) Acute exacerbation of chronic obstructive pulmonary disease (COPD) (Acute) Tobacco Use - Secondary Discharge Diagnosis Chronic Problems Tobacco dependence due to cigarettes (Chronic) Chronic hypoxemic respiratory failure (Chronic) COPD (chronic obstructive pulmonary disease) (Chronic) Anxiety (Chronic) Insomnia (Chronic) History of diabetes mellitus (Chronic) resolved with weight loss History of essential hypertension (Chronic) resolved with weight loss Osteoporosis (Chronic) Hospital Course and Treatment Dr. Owen Pulmonary Operations: None Procedures: EKG Summary of Care Provided: The patient is a 62 year old F [] The patient is a 62 y/o F w/ PMHx: Chronic Hypoxic and Hypercarbic Respiratory Failure w/ Chronic COPD, Tobacco use, HTN, GERD, Diabetes mellitus type II diet controlled, Chronic Back Pain who presented to the [facility] ED on 10/16/17 with dyspnea, wheezing, productive yellow sputum, chills. CXR in the ED w/ right middle lobe infiltrate. Admission CBC w/ WBC 12.5 with L shift. Admitted to [place], maintained on oxygen with wean as tolerated to home oxygen supplementation, continue ATC duonebs, PRN albuterol, transition from IV solumedrol to oral prednisone, maintain on IV Rocephin and Azithromycin, HOB, IS parameters w/ pending sputum cultures, negative urine antigens, pending respiratory panel. Bld cx x 2 obtained in the ED. Obtained AM oxygenation trial for discharge planning w/ 94% on RA at rest and initial, with walking remained above 90%. CTPA obtained during admission w/ 1.5 cm pretracheal lymph node, subcarinal calcified lymph node, calcified left hilar nodes, right middle lobe consolidation, right lung base subsegmental atelectasis, centrilobular and paraseptal emphysema, multiple pleural-based spiculated lesions possibly inbound call center representative of sub-segmental atelectasis with pending Pulmonary consultation given these abnormalities. Discussed with pulmonary medicine and plan for discharge to home on remainder of antibiotic therapy, prednisone taper, as needed albuterol, will continue DuoNeb therapy although patient feels that these do not help pending pulmonary assessment per Dr. Owen office with prior authorization on inhaler at that time as currently cannot afford inhaler with nicotine replacement. Discharge Diet: Low fat/ Low Cholesterol, 1800 Calorie Control Diet Discharge Activity: - - Avoid triggers, aggressive activity, tobacco use, continue home 2L NC at night. May resume sexual activity in: 1-2 weeks Weight Bearing Status: Weight bearing as tolerated Call your doctor if you observe: Fever of 101 or Higher, Inability to urinate, Inability to have a bowel movement, Shortness of breath, Dizziness, Fainting spells, Chest pain, Uncontrolled pain Home Medications: Medications to take at Discharge Diazepam [Valium] 5 mg PO DAILY PRN PRN 08/24/13 Ergocalciferol [Vitamin D] 50,000 unit PO Q7D 09/30/17 Estradiol [Estrace Vaginal Cream] 1 dose VAGINAL DAILY 09/30/17 Fluticasone/Salmeterol [Fluticasone-Salmeterol 113-14] 1 each IH BID 09/30/17 Hydrocodone/Acetaminophen [[place] 5-325 Tablet] 1 each PO PRN PRN 09/30/17 Loratadine 10 mg PO DAILY PRN 09/30/17 Polyethylene Glycol 3350 [Miralax] 17 gm PO DAILY PRN 09/30/17 Albuterol Aerosols [Ventolin Aerosols] 2.5 mg INHALATION Q2H PRN PRN #1 box 10/18/17 Azithromycin [Zithromax] 500 mg PO DAILY #1 tab 10/18/17 Cefdinir [Omnicef [equiv]] 300 mg PO Q12H 7 Days cap 10/18/17 Guaifenesin [Mucinex] 1,200 mg PO BID #20 tab 10/18/17 Ipratropium/Albuterol Sulfate [Duoneb] 3 ml INHALATION Q4HWA.RT #1 box 10/18/17 Nicotine [Nicoderm Cq] 21 mg TRANSDERM. DAILY #14 patch 10/18/17 Prednisone 10 mg PO UD #30 tab 10/18/17 Following Prescrptions Were Given to Patient: Albuterol Aerosols [Ventolin Aerosols] 2.5 mg INHALATION Q2H PRN PRN #1 box PRN Reason: Dyspnea, wheezing Ipratropium/Albuterol Sulfate [Duoneb] 3 ml INHALATION Q4HWA.RT #1 box Azithromycin [Zithromax] 500 mg PO DAILY #1 tab Cefdinir [Omnicef [equiv]] 300 mg PO Q12H 7 Days cap Nicotine [Nicoderm Cq] 21 mg TRANSDERM. DAILY #14 patch Prednisone 10 mg PO UD #30 tab Guaifenesin [Mucinex] 1,200 mg PO BID #20 tab Primary Care Physician: Krish Martinez MD [Primary Care Provider] - Please follow up with your Primary Care Physician in: Follow-up within 3-5 days to review admission. Please Follow Up With: Wesly Owen, When: Follow-up with Pulmonary THERMAL SPRAY OPERATOR within 2 weeks to establish. Call with concerns Patient Instructions: Tips for Quitting Smoking (Cardiovascular), What Is Chronic Bronchitis?, What is COPD?, Chronic Lung Disease: Preventing Lung Infections, What Is Emphysema?, What Is Pneumonia?, Preventing Pneumonia, Pneumonia Treatment, Why Do You Smoke?, Planning to Quit Smoking, Getting Support for Quitting Smoking, Coping with Smoking Withdrawal Disposition: Home Minutes spent on discharge:: 35 Patient Condition:: Fair Medical Necessity - Tobacco Use Smoking Status: Heavy Smoker (>10/day) Tobacco Use: Cigarettes - 1 pack per day Meaningful Use Info Meaningful Use Diagnoses (Choose all that apply): None applicable Code Visit Inpatient E&M: 31223 Disch Hosp
--- NOTE | 2017-10-18 11:58 | DS.PCM_ITS ---
Discharge Date and Diagnosis - Problem List Patient Problems: Active and Suspected Problems CAP (community acquired pneumonia) (Acute) Acute exacerbation of chronic obstructive pulmonary disease (COPD) (Acute) Date of Admission: 10/16/17 Date of Discharge: 10/18/17 - Primary Discharge Diagnosis Active and Suspected Problems CAP (community acquired pneumonia) (Acute) Acute exacerbation of chronic obstructive pulmonary disease (COPD) (Acute) Tobacco Use - Secondary Discharge Diagnosis Chronic Problems Tobacco dependence due to cigarettes (Chronic) Chronic hypoxemic respiratory failure (Chronic) COPD (chronic obstructive pulmonary disease) (Chronic) Anxiety (Chronic) Insomnia (Chronic) History of diabetes mellitus (Chronic) resolved with weight loss History of essential hypertension (Chronic) resolved with weight loss Osteoporosis (Chronic) Hospital Course and Treatment Dr. Owen Pulmonary Operations: None Procedures: EKG Summary of Care Provided: The patient is a 62 year old F [] The patient is a 62 y/o F w/ PMHx: Chronic Hypoxic and Hypercarbic Respiratory Failure w/ Chronic COPD, Tobacco use, HTN, GERD, Diabetes mellitus type II diet controlled, Chronic Back Pain who presented to the [facility] ED on 10/16/17 with dyspnea, wheezing, productive yellow sputum, chills. CXR in the ED w/ right middle lobe infiltrate. Admission CBC w/ WBC 12.5 with L shift. Admitted to [place], maintained on oxygen with wean as tolerated to home oxygen supplementation, continue ATC duonebs, PRN albuterol, transition from IV solumedrol to oral prednisone, maintain on IV Rocephin and Azithromycin, HOB, IS parameters w/ pending sputum cultures, negative urine antigens, pending respiratory panel. Bld cx x 2 obtained in the ED. Obtained AM oxygenation trial for discharge planning w/ 94% on RA at rest and initial, with walking remained above 90%. 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 Discussed with pulmonary medicine and plan for discharge to home on remainder of antibiotic therapy, prednisone taper, as needed albuterol, will continue DuoNeb therapy although patient feels that these do not help pending pulmonary assessment per Dr. Owen office with prior authorization on inhaler at that time as currently cannot afford inhaler with nicotine replacement. Discharge Diet: Low fat/ Low Cholesterol, 1800 Calorie Control Diet Discharge Activity: - - Avoid triggers, aggressive activity, tobacco use, continue home 2L NC at night. May resume sexual activity in: 1-2 weeks Weight Bearing Status: Weight bearing as tolerated Call your doctor if you observe: Fever of 101 or Higher, Inability to urinate, Inability to have a bowel movement, Shortness of breath, Dizziness, Fainting spells, Chest pain, Uncontrolled pain Home Medications: Medications to take at Discharge Diazepam [Valium] 5 mg PO DAILY PRN PRN 08/24/13 Ergocalciferol [Vitamin D] 50,000 unit PO Q7D 09/30/17 Estradiol [Estrace Vaginal Cream] 1 dose VAGINAL DAILY 09/30/17 Fluticasone/Salmeterol [Fluticasone-Salmeterol 113-14] 1 each IH BID 09/30/17 Hydrocodone/Acetaminophen [[place] 5-325 Tablet] 1 each PO PRN PRN 09/30/17 Loratadine 10 mg PO DAILY PRN 09/30/17 Polyethylene Glycol 3350 [Miralax] 17 gm PO DAILY PRN 09/30/17 Albuterol Aerosols [Ventolin Aerosols] 2.5 mg INHALATION Q2H PRN PRN #1 box Azithromycin [Zithromax] 500 mg PO DAILY #1 tab 10/18/17 Cefdinir [Omnicef [equiv]] 300 mg PO Q12H 7 Days cap 10/18/17 Guaifenesin [Mucinex] 1,200 mg PO BID #20 tab 10/18/17 Ipratropium/Albuterol Sulfate [Duoneb] 3 ml INHALATION Q4HWA.RT #1 box 10/18/17 Nicotine [Nicoderm Cq] 21 mg TRANSDERM. DAILY #14 patch 10/18/17 Prednisone 10 mg PO UD #30 tab 10/18/17 Following Prescrptions Were Given to Patient: Albuterol Aerosols [Ventolin Aerosols] 2.5 mg INHALATION Q2H PRN PRN #1 box PRN Reason: Dyspnea, wheezing Ipratropium/Albuterol Sulfate [Duoneb] 3 ml INHALATION Q4HWA.RT #1 box Azithromycin [Zithromax] 500 mg PO DAILY #1 tab Cefdinir [Omnicef [equiv]] 300 mg PO Q12H 7 Days cap Nicotine [Nicoderm Cq] 21 mg TRANSDERM. DAILY #14 patch Prednisone 10 mg PO UD #30 tab Guaifenesin [Mucinex] 1,200 mg PO BID #20 tab Primary Care Physician: Krish Martinez MD [Primary Care Provider] - Please follow up with your Primary Care Physician in: Follow-up within 3-5 days to review admission. Please Follow Up With: Wesly Owen, When: Follow-up with Pulmonary HOUSE SUPERINTENDENT within 2 weeks to establish. Call with concerns Patient Instructions: Tips for Quitting Smoking (Cardiovascular), What Is Chronic Bronchitis?, What is COPD?, Chronic Lung Disease: Preventing Lung Infections, What Is Emphysema?, What Is Pneumonia?, Preventing Pneumonia, Pneumonia Treatment, Why Do You Smoke?, Planning to Quit Smoking, Getting Support for Quitting Smoking, Coping with Smoking Withdrawal Disposition: Home Minutes spent on discharge:: 35 Patient Condition:: Fair Medical Necessity - Tobacco Use Smoking Status: Heavy Smoker (>10/day) Tobacco Use: Cigarettes - 1 pack per day Meaningful Use Info Meaningful Use Diagnoses (Choose all that apply): None applicable Code Visit Inpatient E&M: 54877 Disch Hosp
--- NOTE | 2017-10-18 15:31 | PCA ---
Received fax from [facility] regarding pt pulmonary hx, faxed all papers to [facility] for pt appointment on 11/02.
--- NOTE | 2017-10-20 15:24 | CASEMGMT ---
MARIN PADILLA Discharge Follow-up Phone Call: RITO: Enedelia Strata: 3 Call Date: 10/20/17 Discharge Date: 10/18/17 Time of Call: 1519 Duration: 6 min Admitting Diagnosis: CAP, acute exacerbation of COPD RN VALERIE spoke with patient in regards to how she is feeling since leaving hospital. Patient states that she is feeling a little better. Patient states she was able to slat pickler all prescriptions without any problems and had no questions regarding medication. Patient stated that she did not have any questions regarding discharge instructions. RN CM encourage patient to continue to stop smoking. Patient voiced understanding with upcoming appts. Follow-up appts were scheduled prior to discharge.
== END 2017-10-18 12:54 | disposition home or self-care (01) | DRG 89 ==
LOC: ED 11:23 → MS3 12:36
PROVIDERS: Admitting Provider Internal Medicine; Emergency Provider Emergency Medicine; Family Provider Family Medicine; PCP Family Medicine; Visit Provider Family Medicine
DX: J14 Pneumonia due to Hemophilus influenzae (principal); J44.0 Chronic obstructive pulmonary disease with (acute) lower respiratory infection; J96.21 Acute and chronic respiratory failure with hypoxia; J96.22 Acute and chronic respiratory failure with hypercapnia; J44.1 Chronic obstructive pulmonary disease with (acute) exacerbation; G47.00 Insomnia, unspecified; M81.0 Age-related osteoporosis without current pathological fracture; K21.9 Gastro-esophageal reflux disease without esophagitis; M54.9 Dorsalgia, unspecified; G89.29 Other chronic pain; F32.9 Major depressive disorder, single episode, unspecified; F41.9 Anxiety disorder, unspecified; F17.210 Nicotine dependence, cigarettes, uncomplicated; Z79.899 Other long term (current) drug therapy; Z87.442 Personal history of urinary calculi; Z87.01 Personal history of pneumonia (recurrent)
CPT/HCPCS: 36415; 71046; 71275; 80048; 80076; 81001; 82306; 82340; 83036; 83605; 83735; 83970; 84100; 85025; 85379; 87040; 87070; 87077; 87205; 87449; 87633; 87804; 93005; 94640; 94667; 94668; 99285; 99406; Q9967; A4216

== ENCOUNTER → 2017-11-10 12:19 | Outpatient (CLI) | payer MEDICAID, SELFPAY ==
[2017-11-10 12:30] VITALS: PULSE 105; PULSE 106; PULSE 107; PULSE 96; PULSE 98; PULSE 99; O2SAT 93; O2SAT 94
--- NOTE | 2017-11-11 06:14 | WT_ITS ---
PSN 6 Minute Walk Test - 6 Minute Walk Test 6 Minute Walk Test: 6 Minute Walk Test PSN:6-Minute Walk Test Start: 11/10/17 13: 07 Freq: Status: Active Protocol: RESP.6MINW Document 11/10/17 12:30 EW (Rec: 11/10/17 13:12 EW [id number]) 6 Minute Walk Test Date Performed 11/10/17 Time Performed 12:30 Height 5 ft 2 in Weight: 50.349 kg Weight in Pounds 111.[address]: Odalys Page Assistive device used: None Pre-test Oxygen Delivery Method Room Air Pulse Ox (%) 93 Pulse Rate (60-100 beats/min) 98 Dyspnea Agustin Scale (0-10) 1 Exertion Agustin Scale (6-20) 8 1st minute Oxygen Delivery Method Room Air Pulse Ox (%) 93 Pulse Rate (60-100 beats/min) 99 2nd minute Oxygen Delivery Method Room Air Pulse Ox (%) 93 Pulse Rate (60-100 beats/min) 106 H 3rd minute Oxygen Delivery Method Room Air Pulse Ox (%) 93 Pulse Rate (60-100 beats/min) 105 H 4th minute Oxygen Delivery Method Room Air Pulse Ox (%) 93 Pulse Rate (60-100 beats/min) 106 H 5th minute Oxygen Delivery Method Room Air Pulse Ox (%) 93 Pulse Rate (60-100 beats/min) 106 H 6th minute Oxygen Delivery Method Room Air Pulse Ox (%) 93 Pulse Rate (60-100 beats/min) 107 H Post-test Oxygen Delivery Method Room Air Pulse Ox (%) 94 Pulse Rate (60-100 beats/min) 96 Dyspnea Agustin Scale (0-10) 3 Exertion Agustin Scale (6-20) 11 Full Laps Walked 17 Partial Lap, Number of Tiles Walked 22 Total Distance Walked (ft) 1025 - Interpretation Interpretation: The patient was able to ambulate 1025 feet over the course of 6 minutes on room air with no assistive devices or breaks. The patient experienced no significant desaturation, but did have tachycardia with a peak heart rate of 107 bpm. These findings are consistent with a cardiovascular limitation exercise tolerance. - Recommendations Recommendations: No supplemental oxygen is indicated at this time. Patient may benefit from initiation of an exercise program.
== END ==
PROVIDERS: Family Provider Family Medicine; PCP Family Medicine; Visit Provider Nurse Practitioner Acute Care
DX: J44.9 Chronic obstructive pulmonary disease, unspecified (principal)
CPT/HCPCS: 94618

== ENCOUNTER → 2017-11-24 16:35 | Outpatient (CLI) | payer MEDICAID, SELFPAY ==
[2017-11-19 12:10] LABS: Anion Gap 7 (5-15); BUN 9 mg/dL (7-18); BUN/Creat Ratio 13.5 RATIO (10-20); Chloride 107 mmol/L (98-107); Creatinine, Serum 0.67 mg/dL (0.55-1.02); EST Glomerular Filtration Rate 96 mL/min (>60); Est Glom Filt Rate - Afr Amer 116 mL/min (>60); Glucose 92 mg/dL (74-106); Potassium 3.9 mmol/L (3.5-5.1); Sodium Level 141 mmol/L (136-145)
--- NOTE | 2017-11-24 16:36 | CT_ITS ---
STUDY: CT CHEST WITH CONTRAST REASON FOR EXAM: Female, 62 years old. History of pneumonia. RADIATION DOSAGE (If Supplied By Facility): CTDIvol = ( 5.53 ) mGy, DLP = ( 160.04 ) mGycm TECHNIQUE: Transaxial imaging was performed following intravenous administration of 75 ml of Isovue 300 contrast material. Multiplanar coronal and sagittal images were reformatted. Individualized dose optimization techniques were used for this CT. COMPARISON: Comparison is made with prior study dated October 16, 2017. FINDINGS: Hyperinflation. Emphysematous changes more prominent in the upper lobes. The previously seen infiltration with air bronchograms and possible bronchiectasis in the anterior aspect of the right lower lobe has improved. Residual changes persist. Stable increased linear markings along the anterior medial aspect of the right lower lobe suggestive of scarring. There is no demonstrated pleural abnormality. Normal heart and pericardium. Normal mediastinum. Stable mild enlargement of the right hilar lymph nodes. Normal enhanced pulmonary arteries. Normal aorta arch and descending thoracic aorta. There are multi-level degenerative changes of the thoracic spine. Increased thoracic kyphosis. There is no demonstrated abnormality of the visualized upper abdomen. CT/Chest WITH Contrast IMPRESSION: Persistent infiltration and/or scarring in the anterior aspect of the right lower lobe with areas of bronchiectasis. This has improved. Persistent increased markings in the anterior aspect of the right middle lobe. This may represent scarring. Electronically Signed: Hammad Middleton MD at 10:51 EDT Tel [phone], Service support ,
== END ==
PROVIDERS: Family Provider Family Medicine; PCP Family Medicine; Visit Provider Nurse Practitioner Acute Care
DX: J18.1 Lobar pneumonia, unspecified organism (principal)
CPT/HCPCS: 36415; 71260; 80048; Q9967

== ENCOUNTER 2018-02-07 22:10 | Emergency (ER) | payer MEDICAID, SELFPAY ==
[2018-02-07 22:10] VITALS: BP 135/66; PULSE 92; RESP 20; TEMP 37.8; O2SAT 94; BMI 19.9
--- NOTE | 2018-02-07 23:45 | ED.VISSUMM ---
- ER Visit Summary Date of Service: 02/07/18 Chief Complaint: Abdominal pain with nausea History of Present Illness: The patient is a 62 F history of COPD, kidney stones, anxiety, status post cholecystectomy, prior bladder sling and tubal ligation. She often has abdominal pain. States on Wednesday he started getting left-sided and epigastric abdominal pain. Associated nausea. She denies any vomiting, diarrhea, fever or melena. Mild dysuria. She denies any abdominal trauma. Physical Examination: Middle-aged female no acute distress. Vital signs are stable and with a temperature 100.1. She does not look septic. Or toxic. Her pulse ox 9 9% on room air. No hypoxia. H EENT exam unremarkable. Neck nontender. Lungs clear to auscultation bilaterally. Heart regular rhythm no murmur. Abdomen is no peritoneal signs. No pulsatile mass. Right upper right lower quadrant unremarkable mild left upper quadrant and epigastric tenderness. No signs of obstruction. Moving all 4 extremities. No edema. Neurologically she is awake and alert without focal motor deficits. Back exam nontender. Test Results: White count elevated of 15. H&H of 13 and 41. No bands. Chemistries normal. Normal creatinine and gap. Liver enzymes and lipase normal. UA normal. Emergency Department Course and Treatment: Patient will be treated with IV fluids and IV Zofran. Treatment Plan: Repeat exam patient doing well at 01. She is comfortable being discharged to home. Disposition: Discharge Impression: Acute on chronic abdominal pain Anxiety COPD history This note was generated with [employer] dictation software. It may contain incorrect words, spelling, and punctuation that were not noted in review of the chart prior to signing ED Disposition - Plan for ED Patient: Chief Complaint: Abd Pain Referrals: Krish Martinez MD [Primary Care Provider] -
--- NOTE | 2018-02-07 23:48 | ED.DCSUM_ITS ---
- ER Visit Summary Date of Service: 02/07/18 Chief Complaint: Abdominal pain with nausea History of Present Illness: The patient is a 62 F history of COPD, kidney stones , anxiety, status post cholecystectomy, prior bladder sling and tubal ligation. She often has abdominal pain. States on Wednesday he started getting left-sided and epigastric abdominal pain. Associated nausea. She denies any vomiting, diarrhea, fever or melena. Mild dysuria. She denies any abdominal trauma. Physical Examination: Middle-aged female no acute distress. Vital signs are stable and with a temperature 100.1. She does not look septic. Or toxic. Her pulse ox 9 9% on room air. No hypoxia. H EENT exam unremarkable. Neck nontender. Lungs clear to auscultation bilaterally. Heart regular rhythm no murmur. Abdomen is no peritoneal signs. No pulsatile mass. Right upper right lower quadrant unremarkable mild left upper quadrant and epigastric tenderness. No signs of obstruction. Moving all 4 extremities. No edema. Neurologically she is awake and alert without focal motor deficits. Back exam nontender. Test Results: White count elevated of 15. H&H of 13 and 41. No bands. Chemistries normal. Normal creatinine and gap. Liver enzymes and lipase normal. UA normal. Emergency Department Course and Treatment: Patient will be treated with IV fluids and IV Zofran. Treatment Plan: Repeat exam patient doing well at 01. She is comfortable being discharged to home. Disposition: Discharge Impression: Acute on chronic abdominal pain Anxiety COPD history This note was generated with [employer] dictation software. It may contain incorrect words, spelling, and punctuation that were not noted in review of the chart prior to signing ED Disposition - Plan for ED Patient: Chief Complaint: Abd Pain Referrals: Krish Martinez MD [Primary Care Provider] -
[2018-02-07] MEDS: Ondansetron 4 MG/2 ML Vial IV (23:52)
[2018-02-07] MEDS: 0.9% Normal Saline 1,000 ML 1000 ML IV (23:52)
[2018-02-07 23:53] LABS: Absolute Lymphocyte Count 1.39 X10^3/ul (0.83-4.51); Absolute Neutrophil Count 12.8 X10^3/uL (2.0-7.7); Basophil# 0.03 X10^3/uL; Basophil% 0.2 % (0-1); Eosinophil# 0.08 X10^3/uL; Eosinophils% 0.5 % (0-5); Hematocrit 41.7 % (37-47); Hemoglobin 13.6 g/dl (12.0-15.0); Lymphocyte # 1.39 X10^3/ul (4.0); Lymphocyte % 9.2 % (19-41); Mean Corp Hgb Conc 32.6 g/gl (32-36); Mean Corpuscular Hgb 30.6 pg (27.0-32.0); Mean Corpuscular Volume 93.7 fL (81-99); Mean Platelet Vol. 8.8 fl (6.2-12.0); Monocyte% 4.7 % (0-10); Neutrophil % 85.2 % (47-70); Platelet Count 224 K/mm3 (150-450); RBC Distribution Width CV 12.5 % (11.6-14.6); RBC Distribution Width SD 41.9 fl (35.1-43.9); Red Blood Count 4.45 M/mm3 (4.2-5.4)
[2018-02-07 23:54] LABS: POSITIVE COUNT NO; POSITIVE DIFFERENTIAL NO; POSITIVE MORPHOLOGY NO
[2018-02-08 00:09] LABS: AST(SGOT) 18 U/L (15-37); Alanine Aminotransfer ALT/SGPT 17 U/L (13-56); Albumin, Serum 3.7 g/dL (3.2-5.0); Alkaline Phosphatase 69 U/L (45-117); Anion Gap 5 (5-15); BUN 7 mg/dL (7-18); BUN/Creat Ratio 9.4 RATIO (10-20); Bilirubin, Direct 0.13 mg/dL (0.00-0.30); Calcium,Total 8.8 mg/dL (8.5-10.1); Chloride 103 mmol/L (98-107); Creatinine, Serum 0.75 mg/dL (0.55-1.02); EST Glomerular Filtration Rate 84 mL/min (>60); Est Glom Filt Rate - Afr Amer 102 mL/min (>60); Estimated Creatinine Clearance 62.26 ml/min; Globulin 3.9 g/dL (2.2-4.2); Glucose 95 mg/dL (74-106); Lipase 89 U/L (73-393); Protein, Total 7.6 g/dL (6.4-8.2); Sodium Level 138 mmol/L (136-145)
[2018-02-08 01:01] LABS: Bacteria 0 SEEN /hpf (None Seen); Mucous, Urine 0 SEEN /hpf (<or=2+); Red Blood Cells-Urine 0 SEEN /hpf (0-5); Squamous Epithelial Cells - UA 0 SEEN /hpf (5-10); White Blood Cells 0 SEEN /hpf (0-5)
[2018-02-08 01:03] LABS: Color, Urine Yellow (Yellow); Glucose, Dipstick Normal (Normal); Ketone-Dipstick Negative (Negative); Leukocyte Esterase-Dipstick Negative /ul (Negative); Nitrite-Dipstick Negative (Negative); Occult Blood-Urine Negative /ul (Negative); Protein-Dipstick Negative (Negative); Urine Bilirubin Dipstick Negative (Negative); Urine Clarity Sl. Cloudy (Clear); Urine Urobilinogen Normal (Normal)
--- NOTE | 2018-02-08 01:38 | ED.DEP ---
ED Disposition - Plan for ED Patient: Disposition: Home or Assisted Living Chief Complaint: Abd Pain Instructions: ED Abdominal Pain Unkn Cause Referrals: Krish Martinez MD [Primary Care Provider] - 1-2 Days if not improving Additional Instructions: Plenty of fluids and rest. Follow-up with your doctor if not improving or return to ER if feeling a lot worse.
[2018-02-08 01:42] VITALS: BP 131/60; PULSE 101; PULSE 94; RESP 22; O2SAT 92; O2SAT 94
[2018-02-08] MEDS: Ipratropium/Albuterol Sulfate 3 ML AMPUL.NEB INHALATION (01:57)
[2018-02-08 01:58] VITALS: PULSE 102; RESP 20
== END 2018-02-08 02:00 | disposition home or self-care (01) ==
PROVIDERS: Emergency Provider Emergency Medicine; Family Provider Family Medicine; PCP Family Medicine
DX: R10.9 Unspecified abdominal pain (principal); G89.29 Other chronic pain; R30.0 Dysuria; R11.0 Nausea; J44.9 Chronic obstructive pulmonary disease, unspecified; F41.9 Anxiety disorder, unspecified; Z72.0 Tobacco use; Z79.899 Other long term (current) drug therapy; Z87.442 Personal history of urinary calculi; Z90.49 Acquired absence of other specified parts of digestive tract; Z98.51 Tubal ligation status
CPT/HCPCS: 80048; 80076; 81001; 83690; 85025; 94640; 99284; A4216; J2405

== ENCOUNTER → 2018-08-30 09:35 | Outpatient (CLI) | payer MEDICAID, SELFPAY ==
[2018-06-23 13:56] VITALS: BMI 20.5
--- NOTE | 2018-08-30 17:30 | PFT ---
INTRODUCTION: The patient is a 63-year-old female that presents for pulmonary function studies secondary to a diagnosis of COPD. Respiratory therapy reports good patient effort. Bronchodilators were used during testing. INTERPRETATION: Forced expiration spirometry demonstrates the presence of a severe large airways obstructive ventilatory defect. There was no significant response to aerosolized bronchodilators. Spirograms are of good quality and do not plateau indicating slow emptying of the lungs. Body plethysmography was performed and reveals an elevated RV to 184% of predicted, indicative of underlying air trapping. Diffusing capacity by single breath CO is moderately reduced at 59% of predicted. IMPRESSION: These pulmonary function studies demonstrate the presence of an irreversible severe large airways obstructive ventilatory defect with associated air trapping and symmetric reduction in diffusing capacity.
== END ==
PROVIDERS: Family Provider Family Medicine; PCP Family Medicine; Referring Provider Internal Medicine Critical Care Medicine; Visit Provider Internal Medicine Critical Care Medicine
DX: J44.9 Chronic obstructive pulmonary disease, unspecified (principal); F17.210 Nicotine dependence, cigarettes, uncomplicated
CPT/HCPCS: 94060; 94726; 94729

== ENCOUNTER → 2018-09-07 10:26 | Outpatient (CLI) | payer MEDICAID, SELFPAY ==
[2018-06-23 13:56] VITALS: BMI 20.5
[2018-09-07 11:07] VITALS: PULSE 77; PULSE 79; PULSE 89; PULSE 95; PULSE 96; PULSE 97; PULSE 98; O2SAT 93; O2SAT 95; O2SAT 96; O2SAT 97; O2SAT 98
--- NOTE | 2018-09-09 08:25 | PCM.PSN.6M ---
PSN 6 Minute Walk Test - 6 Minute Walk Test 6 Minute Walk Test: 6 Minute Walk Test PSN:6-Minute Walk Test Start: 09/07/18 11:06 Freq: Status: Active Protocol: RESP.6MINW Document 09/07/18 11:07 FREYA (Rec: 09/07/18 11:09 FREYA [id number]) 6 Minute Walk Test Date Performed 09/07/18 Time Performed 11:00 Height 5 ft 2 in Weight: 113 lb Weight in Pounds 113.[address]: Wesly Owen Assistive device used: None Pre-test Oxygen Delivery Method Room Air Pulse Ox (%) 95 Pulse Rate (60-100 beats/min) 79 Dyspnea Agustin Scale (0-10) 0 Exertion Agustin Scale (6-20) 6 1st minute Oxygen Delivery Method Room Air Pulse Ox (%) 93 Pulse Rate (60-100 beats/min) 89 2nd minute Oxygen Delivery Method Room Air Pulse Ox (%) 96 Pulse Rate (60-100 beats/min) 95 3rd minute Oxygen Delivery Method Room Air Pulse Ox (%) 98 Pulse Rate (60-100 beats/min) 96 4th minute Oxygen Delivery Method Room Air Pulse Ox (%) 97 Pulse Rate (60-100 beats/min) 97 5th minute Oxygen Delivery Method Room Air Pulse Ox (%) 96 Pulse Rate (60-100 beats/min) 98 6th minute Oxygen Delivery Method Room Air Pulse Ox (%) 97 Pulse Rate (60-100 beats/min) 96 Dyspnea Agustin Scale (0-10) 1 Exertion Agustin Scale (6-20) 12 Post-test Oxygen Delivery Method Room Air Pulse Ox (%) 98 Pulse Rate (60-100 beats/min) 77 Full Laps Walked 18 Partial Lap, Number of Tiles Walked 20 Total Distance Walked (ft) 1082 - Interpretation Interpretation: The patient ambulated 1082 feet over the course of 6 minutes beginning on room air without assistive devices or breaks. Pretesting oxygen saturation was noted to be 95% on room air. With ambulation, the gema oxygen saturation was 93%. There was no significant exertional oxygen desaturation. - Recommendations Recommendations: There is no indication for the use of supplemental oxygen at this time.
== END ==
PROVIDERS: Family Provider Family Medicine; PCP Family Medicine; Referring Provider Internal Medicine Critical Care Medicine; Visit Provider Internal Medicine Critical Care Medicine
DX: J44.9 Chronic obstructive pulmonary disease, unspecified (principal); F17.210 Nicotine dependence, cigarettes, uncomplicated
CPT/HCPCS: 94618

== ENCOUNTER → 2018-10-10 13:18 | Outpatient (CLI) | payer MEDICAID, SELFPAY ==
[2018-09-28 10:53] VITALS: BMI 20.6
--- NOTE | 2018-10-10 13:21 | CT_ITS ---
STUDY: CT ABDOMEN AND PELVIS WITHOUT CONTRAST REASON FOR EXAM: Female, 63 years old. Kidney stones RADIATION DOSAGE (If Supplied By Facility): CTDIvol = ( 6.04 ) mGy, DLP = ( 247.62 ) mGycm TECHNIQUE: Transaxial images were obtained from the dome of the diaphragm to the symphysis pubis without oral contrast, and without intravenous contrast. Sagittal and coronal images were reconstructed. Individualized dose optimization techniques were used for this CT. COMPARISON: None. FINDINGS: The visualized lung bases are unremarkable. The visualized portions of the heart are within normal limits. Calcified hepatic granulomata. Normal gallbladder and extrahepatic biliary system. There are multiple benign calcified granulomata of the spleen. Normal pancreas. Normal bilateral adrenal glands. Multiple bilateral nonobstructing renal stones measuring up to 5 mm. No ureter stone or acute obstructive uropathy. Normal visualized stomach. Normal small intestine. Normal colon. The appendix is visualized and appears normal. Normal abdominal aorta. Normal inferior vena cava. Normal retroperitoneum. Normal urinary bladder. Normal abdominal wall. Normal osseous structures. CT/Abdomen/Pelvis without Cont IMPRESSION: Multiple bilateral nonobstructing renal stones measuring up to 5 mm. No ureter stone or acute obstructive uropathy. Electronically Signed: Rashaun Anand MD at 19:47 EDT Tel , Service support ,
== END ==
PROVIDERS: Family Provider Family Medicine; PCP Family Medicine; Referring Provider Urology; Visit Provider Urology
DX: N20.0 Calculus of kidney (principal)
CPT/HCPCS: 74176

== ENCOUNTER → 2018-10-27 11:26 | Outpatient (CLI) | payer MEDICAID, SELFPAY ==
[2018-09-28 10:53] VITALS: BMI 20.6
--- NOTE | 2018-10-27 11:30 | RAD_ITS ---
STUDY: X-RAY - ABDOMEN/PELVIS REASON FOR EXAM: Female, 63 years old. Kidney calculus TECHNIQUE: Single AP view of the abdomen / pelvis. COMPARISON: CT 10/10/2018 FINDINGS: Normal visualized lung bases. Calcified splenic granulomata. There is an unremarkable bowel gas pattern. There is no demonstrated free abdominal air. The visualized liver, spleen and kidneys are grossly normal in size and morphology. Multiple bilateral renal calculi are present, measuring up to 3 mm. No ureter stones are visible. Normal soft tissue structures. Normal visualized osseous structures. RAD/Abdomen Single View IMPRESSION: Multiple bilateral renal calculi are present, measuring up to 3 mm. No ureter stones are visible. Electronically Signed: Rashaun Anand MD at 21:23 EDT Tel , Service support ,
== END ==
PROVIDERS: Family Provider Family Medicine; PCP Family Medicine; Referring Provider Urology; Visit Provider Urology
DX: N20.0 Calculus of kidney (principal)
CPT/HCPCS: 74018

== ENCOUNTER 2018-11-22 08:48 | Day surgery (SDC) | payer MEDICAID, SELFPAY ==
[2018-09-28 10:53] VITALS: BMI 20.6
[2018-11-22] VITALS (8 sets, daily range): BP systolic 93–148; BP diastolic 42–67; PULSE 56–73; RESP 16; TEMP 36.1–36.9; O2SAT 96–98; BMI 19.2
--- NOTE | 2018-11-22 10:07 | OP.PCM_ITS ---
Problem List (1) Urethral stenosis Status: Acute (2) Urinary urgency Status: Acute Report of Operation Date of Procedure: 11/22/18 Pre-Operative Diagnosis: urinary urgency, urethral stenosis Post-Operative Diagnosis: same Surgery/Procedure Performed:: urethral dilation, cystoscopy Type of Anesthesia:: MAC Special Medications: lidocaine jelly Description of Procedure: The patient is a 63-year-old female with urgency, and on evaluation in the office he was identified as having urethral stenosis as I was unable to pass the scope. She was not able to tolerate urethral dilation in the office. All risks benefits and alternatives were discussed, informed consent was obtained for urethral dilation and cystoscopy under anesthesia. The patient was taken in the operating room and placed in the operating room table. Anesthesia monitored the head, neck, airway, IV access and vital signs throughout the case. Once anesthesia was a probably administered the patient was placed into dorsal lithotomy position and was prepped and draped in usual sterile fashion. Lidocaine jelly was inserted for local pain control. Urethral dilation was then performed to a largest size of 30 [place]. At this point a cystourethroscopy was performed using a 70 degree lens. There was no mass, erythema, ulceration or foreign body identified. The bladder wall was thin the capacity was normal and there was no significant prolapse or other anatomical abnormality identified. At this time the case was terminated, the patient's bladder was emptied and the remainder of the lidocaine jelly was inserted. The patient was awakened and taken to the recovery room in good condition. There were no complications during this procedure. Grafts/Implants Used: none - Complications none - Admit VTE Documentation VTE Present on Admission: Yes VTE Mechan Device Prophylaxis: SCD's VTE Pharm Prophylaxis ordered?: No Reason prophylaxis not ordered:: Treatment Not Indicated
--- NOTE | 2018-11-22 10:08 | DCINST_ITS ---
Discharge Diet: No Restrictions Discharge Activity: May not drive while taking narcotic pain medications., May Shower May resume sexual activity in: 1 week Call your doctor if you observe: Fever of 101 or Higher, Inability to urinate, Inability to have a bowel movement, Shortness of breath, Chest pain, Calf discomfort, Uncontrolled pain Allergies/Adverse Reactions: Allergies Penicillins Allergy (Verified 11/18/18 14:15) Unknown aclidinium [From Tudorza Pressair] Adverse Reaction (Verified 11/18/18 14:19) Other heart palpitations, abd cramping,headache doxycycline Adverse Reaction (Verified 11/18/18 14:20) Other mental status changes gabapentin Adverse Reaction (Verified 11/18/18 14:19) Other drowsiness,cough,anxiety ipratropium Adverse Reaction (Verified 11/18/18 14:19) Other blurry vision, abd cramping, headache,tremor levofloxacin [From Levaquin] Adverse Reaction (Verified 11/18/18 14:15) Other MAKES HEAD FEEL LIKE IT IS PRESSURIZED methylprednisolone Adverse Reaction (Verified 11/18/18 14:19) Other mualgia sertraline [From Zoloft] Adverse Reaction (Verified 11/18/18 14:19) Upset Stomach muscle pain, chest burning sulfamethoxazole [From Bactrim] Adverse Reaction (Verified 11/18/18 14:19) Other trouble breathing trimethoprim [From Bactrim] Adverse Reaction (Verified 11/18/18 14:19) Other trouble breathing umeclidinium [From Incruse Ellipta] Adverse Reaction (Verified 11/18/18 14:19) Other heart palpitations, abd cramping, blurry vision,tremor,headache Medications to take at Discharge Estradiol [Estrace Vaginal Cream] 1 dose VAGINAL DAILY 09/30/17 Hydrocodone/Acetaminophen [Colby 5-325 Tablet] 1 ea PO PRN PRN 09/30/17 Loratadine 10 mg PO DAILY PRN 09/30/17 Polyethylene Glycol 3350 [Miralax] 17 gm PO DAILY PRN 09/30/17 albuterol sulfate HFA 90 mcg/actuation aerosol inhaler 2 puff INHALATION Q4H PRN 11/02/17 ranitidine 150 mg tablet 150 mg PO BID PRN tab 11/02/17 albuterol sulfate 2.5 mg/3 mL (0.083 %) solution for nebulization 2.5 mg INHALATION Q2H PRN PRN #180 vial 02/11/18 ipratropium 20 mcg-albuterol 100 mcg/actuation mist for inhalation 1 puff INHALATION Q6H #4 g 04/26/18 mometasone-formoterol HFA 200 mcg-5 mcg/actuation aerosol inhaler 2 puff INHAL ATION BID #1 device 09/28/18 Cholecalciferol (Vitamin D3) [Vitamin D3] 2,000 unit PO DAILY 11/18/18 Hydroxyzine HCl 25 mg PO BID PRN PRN 11/18/18 Primary Care Physician: Krish Martinez MD [Primary Care Provider] - Test Results: Test results from this visit will be discussed in further detail at your follow- up appointment, if applicable. Please Follow Up With: Lesa Green MD When: 1 week, call office for appt Proposed Discharge Date: 11/22/18
[2018-11-22] MEDS: Cefazolin 2 GM in 0.9% Normal Saline 100 ML IV (10:15)
[2018-11-22] MEDS: Lidocaine Jelly 2% 20 ML Syringe (URO-JET) 20 APPLIC (10:23)
[2018-11-22] MEDS: Lubricating Jelly 60 GM Tube 30 GM TOPICAL (10:25)
== END 2018-11-22 12:56 | disposition home or self-care (01) ==
LOC: SDC 08:48 → AC 08:50
PROVIDERS: Family Provider Family Medicine; PCP Family Medicine; Referring Provider Urology; Visit Provider Urology
PROC: 0T7D8ZZ Dilation of Urethra, Via Natural or Artificial Opening Endoscopic (ICD-10-PCS; CPT 52281; principal; 2018-11-22 10:10)
DX: N35.92 Unspecified urethral stricture, female (principal); R39.15 Urgency of urination; J44.9 Chronic obstructive pulmonary disease, unspecified; M54.9 Dorsalgia, unspecified; G89.29 Other chronic pain; K21.9 Gastro-esophageal reflux disease without esophagitis; F41.9 Anxiety disorder, unspecified; F17.200 Nicotine dependence, unspecified, uncomplicated; Z79.899 Other long term (current) drug therapy; Z78.0 Asymptomatic menopausal state; Z87.442 Personal history of urinary calculi
CPT/HCPCS: 00910; 52281; J7120; J2405

== ENCOUNTER → 2019-04-13 09:32 | Outpatient (CLI) | payer MEDICAID, SELFPAY ==
[2018-11-22 09:19] VITALS: BMI 19.2
== END ==
PROVIDERS: Family Provider Family Medicine; PCP Family Medicine; Referring Provider Internal Medicine Critical Care Medicine; Visit Provider Internal Medicine Critical Care Medicine
DX: J44.9 Chronic obstructive pulmonary disease, unspecified (principal)
CPT/HCPCS: 94762

== ENCOUNTER → 2019-04-27 14:31 | Outpatient (CLI) | payer MEDICAID, SELFPAY ==
[2018-11-22 09:19] VITALS: BMI 19.2
--- NOTE | 2019-04-27 14:33 | CT_ITS ---
STUDY: LOW DOSE CT LUNG CANCER SCREENING REASON FOR EXAM: Female, 63 years old. Tobacco abuse, 44 pack-year history RADIATION DOSAGE (If Supplied By Facility): CTDIvol = ( 1.70 ) mGy, DLP = ( 54.67 ) mGycm TECHNIQUE: No contrast was administered. Low dose technique was utilized (average mAS-38 and kVp 120). 1.25 mm axial source images with a slice interval of 1.25-mm were reconstructed in lung windows. 2.5 mm axial source images with a slice interval of 2.5-mm were reconstructed in lung windows. 5.0 mm axial source images with a slice interval of 5.0-mm were reconstructed in soft tissue windows. Nodule measured using lung windows on PACS and/or independent workstation with automated measurement of minimum and maximum diameter. Nodule measurement reported as average diameter rounded to the nearest whole number. Growth is defined as an increase ins size of greater than 1.5 mm. COMPARISON: CT from 11/24/2017 NODULES: Total lung nodules (excluding granulomas): 0 Emphysema: Moderate with scattered fibrotic parenchymal bands including subpleural reticulation. Volume loss and bronchiectasis of the right middle lobe Endobronchial lesion: Central, cylindrical bronchiectasis. Aorta: Mild thoracic aortic atherosclerosis Coronary arteries: Mild atherosclerosis Heart: Normal size Pulmonary artery: Unremarkable for unopacified technique. Mediastinal nodes: Calcified mediastinal and left hilar lymph nodes. Granulomata in left lower lobe identified. Other chest and abdominal findings: There are granulomas calcifications of the spleen. Degenerative changes of the thoracic spine. CT/Low Dose CT Lung Screening IMPRESSION: 1. Lung-RADS category 1 - no noncalcified pulmonary nodule/mass. Continue annual screening with LDCT in 12 months. 2. Moderate centrilobular emphysema with stable right middle lobe bronchiectasis and chronic atelectasis. Scattered fibrotic parenchymal bands. 3. Atherosclerosis including coronary arteries 4. Granulomatous calcifications IMPORTANT NOTES FOR USE: ACR Lung-RADS Version 1.0 Assessment Categories Release Date: October 23, 2013 Category: Coded 0-4 bases on nodule(s) with highest degree of suspicion. Negative screen is defined as categories 1 and 2; a positive screen is defined as categories 3 and 4. Category 3 and 4A nodules that are unchanged on interval CT should be coded as category 2, and individuals returned to screening in 12 months. Category 4X: Category 3 or 4 nodules with additional imaging findings that increase the suspicion of lung cancer, such as spiculation, GGN that doubles in size in 1 year, enlarged lymph notes, etc. Category Modifiers: S (significant finding unrelated to lung cancer) and C (prior history of treated lung cancer) may be added to the 0-4 Lung-RADS Electronically Signed: Tanner Smith MD (Brooks) at 8:54 EDT , Service support ,
== END ==
PROVIDERS: Family Provider Family Medicine; PCP Family Medicine; Referring Provider Internal Medicine Critical Care Medicine; Visit Provider Internal Medicine Critical Care Medicine
DX: F17.210 Nicotine dependence, cigarettes, uncomplicated (principal)
CPT/HCPCS: G0297

== ENCOUNTER → 2019-06-15 08:18 | Outpatient (CLI) | payer MEDICAID, SELFPAY ==
[2019-06-09 14:20] VITALS: BMI 19.2
[2019-06-15 08:30] VITALS: PULSE 72; PULSE 76; PULSE 78; PULSE 85; PULSE 87; PULSE 88; PULSE 90; PULSE 92; O2SAT 93; O2SAT 94; O2SAT 95; O2SAT 96; O2SAT 97
--- NOTE | 2019-06-19 08:10 | PCM.PSN.6M ---
PSN 6 Minute Walk Test - 6 Minute Walk Test 6 Minute Walk Test: 6 Minute Walk Test PSN:6-Minute Walk Test Start: 06/15/19 08:36 Freq: Status: Active Protocol: [id number] Document 06/15/19 08:30 JLA (Rec: 06/15/19 08:43 JLA [id number]) 6 Minute Walk Test Date Performed 06/15/19 Time Performed 08:30 Height 5 ft 2 in Weight: 105 lb Weight in Pounds 105.[address]: Odalys Page Assistive device used: None Pre-test Oxygen Delivery Method Room Air Pulse Ox (%) 96 Pulse Rate (60-100 beats/min) 72 Dyspnea Agustin Scale (0-10) 0 Exertion Agustin Scale (6-20) 6 1st minute Oxygen Delivery Method Room Air Pulse Ox (%) 94 Pulse Rate (60-100 beats/min) 78 2nd minute Oxygen Delivery Method Room Air Pulse Ox (%) 95 Pulse Rate (60-100 beats/min) 85 3rd minute Oxygen Delivery Method Room Air Pulse Ox (%) 93 Pulse Rate (60-100 beats/min) 92 4th minute Oxygen Delivery Method Room Air Pulse Ox (%) 96 Pulse Rate (60-100 beats/min) 90 5th minute Oxygen Delivery Method Room Air Pulse Ox (%) 96 Pulse Rate (60-100 beats/min) 87 6th minute Oxygen Delivery Method Room Air Pulse Ox (%) 95 Pulse Rate (60-100 beats/min) 88 Dyspnea Agustin Scale (0-10) 0 Exertion Agustin Scale (6-20) 11 Post-test Oxygen Delivery Method Room Air Pulse Ox (%) 97 Pulse Rate (60-100 beats/min) 76 Full Laps Walked 20 Partial Lap, Number of Tiles Walked 30 Total Distance Walked (ft) 1210 - Interpretation Interpretation: The patient ambulated 1210 feet over the course of 6 minutes beginning on room air without assistive devices or breaks. Pretesting oxygen saturation was noted to be 96% on room air. With ambulation, the gema oxygen saturation was 93%. There was no significant exertional oxygen desaturation. - Recommendations Recommendations: There is no indication for the use of supplemental oxygen at this time.
== END ==
PROVIDERS: Family Provider Family Medicine; PCP Family Medicine; Referring Provider Nurse Practitioner Acute Care; Visit Provider Nurse Practitioner Acute Care
DX: J44.9 Chronic obstructive pulmonary disease, unspecified (principal)
CPT/HCPCS: 94618

== ENCOUNTER 2019-07-05 12:42 | Emergency (ER) | payer MEDICAID, SELFPAY ==
[2019-06-09 14:20] VITALS: BMI 19.2
[2019-07-05] VITALS (7 sets, daily range): BP systolic 103–137; BP diastolic 52–64; PULSE 72–90; RESP 18–20; TEMP 37; O2SAT 95–97; BMI 19.5
--- NOTE | 2019-07-05 13:43 | EKG12_ITS ---
Test Reason : CP Blood Pressure : / mmHG Vent. Rate : 084 BPM Atrial Rate : 084 BPM P-R Int : 178 ms QRS Dur : 088 ms QT Int : 368 ms P-R-T Axes : 059 025 056 degrees QTc Int : 434 ms Normal sinus rhythm Normal ECG Confirmed by BLANQUITA COTTON, DANA ([id number]), mapping editor LAZARO LOBO ([id number]) on 07/06/2019 10:37:15 AM Referred By: GEOVANNA/CHARLENE Confirmed By:TARYN JUARES MD
--- NOTE | 2019-07-05 13:44 | RAD_ITS ---
STUDY: X-RAY - UNILATERAL RIBS ( RIGHT ) WITH CHEST REASON FOR EXAM: Female, 63 years old. RIGHT AXILLARY RIB PAIN, COUGH, SOB TECHNIQUE - RIBS: 3 view(s) of the ribs. TECHNIQUE - CHEST: Single PA view of the chest. COMPARISON: Comparison is made with prior chest radiograph dated October 16, 2017. FINDINGS - RIBS: Normal visualized ribs without a demonstrated fracture. FINDINGS - CHEST: EKG electrodes are seen. Hyperinflation. There is evidence of focal infiltration in the right upper lobe. There is prominence of the right perihilar region. There is no demonstrated pleural abnormality. Normal size heart. Normal mediastinum. Normal visualized pulmonary arteries. There is atherosclerotic calcification of the aortic arch with tortuosity. Normal visualized thoracic spine. Normal visualized ribs, clavicles, and shoulders. There is no demonstrated abnormality of the visualized soft tissue structures of the upper abdomen. RAD/Ribs Uni Min 3V w/PA Chest IMPRESSION: RIBS: Normal x-ray examination of the ribs. CHEST: Right upper lobe infiltrate. Prominence of the right hilum. Electronically Signed: Hammad Middleton, at 14:39 EST , Service support ,
--- NOTE | 2019-07-05 13:47 | ED.VIS.CHEST ---
History of Present Illness Chief Complaint: Chest Pain Informant: Patient Onset: Days Activity at onset: Unknown Timing: Continuous Quality: Aching, Stabbing Location: Right Chest Worsened By: Breathing, Coughing Relieved By: Nothing Associated Symptoms: Nausea, Dyspnea, Cough Narrative: Patient is a 63-year-old female with history of COPD, kidney stones and tobacco abuse presenting with right-sided chest pain. Patient states is worsened over the past 4 to 5 days. It is worse when she takes a deep breath. She states it feels like someone is stabbing a knife in her side. She notes she is been coughing with productive cough for the past few weeks. 1 month ago patient was treated for antibiotics and prednisone for likely COPD exacerbation. Since then she states she is never really felt better. Patient is also been more tired and sleeping more. States she does normally now but has been since he is been feeling unwell. She feels generally weak all over. She does feel short of breath but this is her chronic shortness of breath consistent with her COPD. Patient wears 2 L of oxygen at night but none during the day. Her symptoms are also worse with exertion. Patient denies any swelling of her legs. She has a history of DVT or PE. She does note some increased frequency and pressure with urination but is been going on for 2 to 3 months. She follows with Dr. Green, urology. In addition she states she has had some diffuse abdominal pain that is been going on for the past few months. Prior Similar Symptoms: No Past Medical History - Allergies and Home Meds Allergies/Adverse Reactions: Allergies aclidinium [From Tudorza Pressair] Adverse Reaction (Verified 07/05/19 12:44) Other heart palpitations, abd cramping,headache doxycycline Adverse Reaction (Verified 07/05/19 12:44) Other mental status changes gabapentin Adverse Reaction (Verified 07/05/19 12:44) Other drowsiness,cough,anxiety ipratropium Adverse Reaction (Verified 07/05/19 12:44) Other blurry vision, abd cramping, headache,tremor levofloxacin [From Levaquin] Adverse Reaction (Verified 07/05/19 12:44) Other MAKES HEAD FEEL LIKE IT IS PRESSURIZED methylprednisolone Adverse Reaction (Verified 07/05/19 12:44) Other mualgia sertraline [From Zoloft] Adverse Reaction (Verified 07/05/19 12:44) Upset Stomach muscle pain, chest burning sulfamethoxazole [From Bactrim] Adverse Reaction (Verified 07/05/19 12:44) Other trouble breathing trimethoprim [From Bactrim] Adverse Reaction (Verified 07/05/19 12:44) Other trouble breathing umeclidinium [From Incruse Ellipta] Adverse Reaction (Verified 07/05/19 12:44) Other heart palpitations, abd cramping, blurry vision,tremor,headache Primary Care Physician: Krish Martinez MD [Primary Care Provider] - Past Medical History: - - COPD, kidney stones, history of pneumonia Surgical History: cholecystectomy, - - Tubal ligation, surgical lung biopsy at 26 years Smoking Status: Current every day smoker - Family History Maternal Family History: Family History (Last Reviewed 06/09/19 @ 14:34 by JOE Garza) Grandmother Cancer Brother Diabetes Hypertension Father Hypertension Embolism Sister Hypertension Diabetes Family History: Reports: No pertinent history Paternal Family History: Family History (Last Reviewed 06/09/19 @ 14:34 by Odalys Page NP-Jennifer) Grandmother Cancer Brother Diabetes Hypertension Father Hypertension Embolism Sister Hypertension Diabetes Family History: Reports: Clotting Disorder, COPD Sibling Family History: Family History (Last Reviewed 06/09/19 @ 14:34 by JOE Garza) Grandmother Cancer Brother Diabetes Hypertension Father Hypertension Embolism Sister Hypertension Diabetes Family History: Reports: Clotting Disorder - both sisters, COPD Review of Systems General: Reports: Malaise. Denies: Chills, Fever, Sweats Eyes: Denies: Visual changes - bilaterally, Diplopia ENT: Denies: Rhinorrhea, Sore throat Cardiovascular: Reports: Chest pain - right sided . Denies: Palpitations Respiratory: Reports: Dyspnea, Cough, Sputum. Denies: Dyspnea on exertion Gastrointestinal: Denies: Abdominal pain, Nausea, Vomiting, Diarrhea, Melena, Hematochezia Genitourinary: Reports: Frequency. Denies: Dysuria, Hematuria Musculoskeletal: Denies: Back pain, Extremity Pain Skin: Denies: Rash, Wounds Neurological: Denies: Headache, Weakness, Numbness Physical Exam Vital Signs/Narrative: Vital Signs Temp Pulse Resp BP Pulse Ox 07/05/19 12:53 85 18 119/52 L 97 07/05/19 12:45 98.6 F 90 18 137/53 H 97 Inital Vital Signs reviewed: Yes General: Well nourished, Well developed, No Acute Distress Head: Normocephalic, Atraumatic Eyes: Perrl, EOMI ENT: Moist mucous membranes, No rhinorrhea, TM's clear Neck: Supple, Nontender, No JVD Cardiovascular: Regular rate, Regular rhythm, No murmurs Respiratory: No distress, CTA bilaterally, Chest tenderness - left middle ribs anterior axillary line . Negative for: Wheezing, Diminished Abdomen: Soft, Nontender, Nondistended, Normal bowel sounds Back: Nontender, Normal Inspection Extremities: Nontender, No edema. Negative for: Edema, Calf Tenderness Skin: Normal color, No rash Neurological: Alert, Oriented x3, Cranial nerves II-XII grossly intact, Normal Strength, Normal Sensation Psychological: Normal affect, Normal Mood Diagnostic/Tx/Re-eval Clinical Impression(s) from Imaging Studies Ribs w/Chest X-Ray 07/05/19 13:44 IMPRESSION: RIBS: Normal x-ray examination of the ribs. CHEST: Right upper lobe infiltrate. Prominence of the right hilum. Electronically Signed: Hammad Emi, at 14:39 EST , Service support , Laboratory Data 07/05/19 07/05/19 13:55 13:55 WBC 5.5 RBC 3.47 L Hgb 10.8 L Hct 32.9 L MCV 94.8 MCH 31.1 MCHC 32.8 RDW Std Deviation 41.2 RDW Coeff of Stormy 11.9 Plt Count 252 MPV 9.1 Immature Gran % (Auto) 0.400 Neut % (Auto) 68.1 Lymph % (Auto) 18.5 L [place] % (Auto) 11.5 H Eos % (Auto) 1.1 Baso % (Auto) 0.4 Absolute Neuts (auto) 3.7 Absolute Lymphs (auto) 1.01 Nucleated RBC % 0 Sodium 140 Potassium 4.1 Chloride 106 Carbon Dioxide 29.0 Anion Gap 5 BUN 11 Creatinine 0.80 Estim Creat Clear Calc 56.42 Est GFR (MDRD) Af Amer 93 Est GFR (MDRD) Non-Af 77 BUN/Creatinine Ratio 13.7 Glucose 90 Calcium 8.6 Total Bilirubin 0.20 Direct Bilirubin 0.07 AST 22 ALT 17 Alkaline Phosphatase 56 Troponin I < 0.015 Total Protein 6.6 Albumin 2.8 L Globulin 3.8 Albumin/Globulin Ratio 0.7 L - Rhythm Strip Rhythm Strip: Sinus Rhythm Rate: 84 Ectopy: None - EKG Initial EKG Interpretation: Sinus Rhythm, - - Sinus rhythm at a rate of 84 Normal intervals Normal axis Normal ST segments - Medical Decision Making Patient is evaluated for worsening shortness of breath and right-sided chest pain. Her chest pain is highly reproducible on exam. I suspect his chest wall strain likely from her coughing. I did perform a rib series which did not show any acute fracture but did show right upper lobe infiltrate. As patient has had worsening respiratory symptoms for the past month she will be treated for pneumonia. She is afebrile with a normal white blood cell count in the emergency room. She is ambulated and her pulse ox does not go below 93%. Patient had in her medical record that she was allergic to penicillin however her reaction was that she passed out after receiving a shot as a child. I suspect this is actually a vasovagal response and not a true penicillin allergy. Patient will be started on azithromycin as well as high-dose Augmentin per current recommendations. She is given first dose in the emergency room. 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 Patient had mentioned urine symptoms however they have been going on for months. She has urologist. She has not supply of the urine table in the emergency room however I do not think this needs to be evaluated emergently. Patient is counseled on signs and symptoms requiring return to the emergency room. Patient verbalizes agreement and understand this plan. Patient discharged home in stable and improved condition. ED Disposition - Plan for ED Patient: Disposition: Home or Assisted Living Diagnosis: Right upper lobe pneumonia, Chest wall pain Instructions: PNEUMONIA (Adult), CHEST WALL STRAIN (Child) Prescriptions: Amoxicillin/Potassium Clav [Amox-Clav ER 1,000-62.5 mg Tab] 2 ea PO BID #20 tab.er.12h Prescription Printed Azithromycin 250 mg PO DAILY #4 tab Prescription Printed Referrals: Krish Martinez MD [Primary Care Provider] - Additional Instructions: Please call Dr. Owen for follow-up later this week or early next week. Return emergency room for worsening symptoms. I suspect the pain you have is actually from the coughing. Please take ibuprofen and/or Tylenol as needed for this pain. Return the emergency room with any worsening symptoms.
[2019-07-05] MEDS: Ondansetron 4 MG/2 ML Vial IV (13:56)
[2019-07-05] MEDS: 0.9% Normal Saline 1,000 ML 1000 ML IV (13:56)
[2019-07-05 14:02] LABS: Absolute Lymphocyte Count 1.01 X10^3/uL (0.83-4.51); Absolute Neutrophil Count 3.7 X10^3/uL (2.0-7.7); Basophil# 0.02 X10^3/uL; Basophil% 0.4 % (0-1); Eosinophil# 0.06 X10^3/uL; Eosinophils% 1.1 % (0-5); Hematocrit 32.9 % (37-47); Hemoglobin 10.8 g/dL (12.0-15.0); Lymphocyte # 1.01 X10^3/ul (4.0); Lymphocyte % 18.5 % (19-41); Mean Corp Hgb Conc 32.8 g/dL (32-36); Mean Corpuscular Hgb 31.1 pg (27.0-32.0); Mean Corpuscular Volume 94.8 fL (81-99); Mean Platelet Vol. 9.1 fl (6.2-12.0); Monocyte# 0.63 X10^3/uL; Monocyte% 11.5 % (0-10); NRBC Flagged by Analyzer 0 % (0-5); Neutrophil # 3.72 X10^3/uL (2.7-7.7); Neutrophil % 68.1 % (47-70); Platelet Count 252 K/mm3 (150-450); RBC Distribution Width CV 11.9 % (11.6-14.6); RBC Distribution Width SD 41.2 fl (35.1-43.9); Red Blood Count 3.47 M/mm3 (4.2-5.4); White Blood Count 5.5 K/mm3 (4.4-11.0)
[2019-07-05 14:20] LABS: ALB/GLOB Ratio 0.7 RATIO (0.9-2.4); AST(SGOT) 22 U/L (15-37); Alanine Aminotransfer ALT/SGPT 17 U/L (13-56); Albumin, Serum 2.8 g/dL (3.2-5.0); Alkaline Phosphatase 56 U/L (45-117); Anion Gap 5 (5-15); BUN 11 mg/dL (7-18); BUN/Creat Ratio 13.7 RATIO (10-20); Bilirubin, Direct 0.07 mg/dL (0.00-0.30); Calcium,Total 8.6 mg/dL (8.5-10.1); Chloride 106 mmol/L (98-107); EST Glomerular Filtration Rate 77 mL/min (>60); Est Glom Filt Rate - Afr Amer 93 mL/min (>60); Estimated Creatinine Clearance 56.42 ml/min; Globulin 3.8 g/dL (2.2-4.2); Glucose 90 mg/dL (74-106); Potassium 4.1 mmol/L (3.5-5.1); Protein, Total 6.6 g/dL (6.4-8.2); Sodium Level 140 mmol/L (136-145)
[2019-07-05] MEDS: AMOXICILLIN 500 MG CAPSULE 1500 MG PO (16:17)
[2019-07-05] MEDS: Azithromycin 250 MG Tablet 500 MG PO (16:17)
[2019-07-05] MEDS: Amox/Clavulanate 500 MG Tablet PO (16:33)
== END 2019-07-05 16:35 | disposition home or self-care (01) ==
PROVIDERS: Emergency Provider Emergency Medicine; Family Provider Family Medicine; PCP Family Medicine
DX: J44.0 Chronic obstructive pulmonary disease with (acute) lower respiratory infection (principal); J18.9 Pneumonia, unspecified organism; R07.89 Other chest pain; F17.200 Nicotine dependence, unspecified, uncomplicated; Z87.01 Personal history of pneumonia (recurrent)
CPT/HCPCS: 71101; 80053; 80076; 84484; 85025; 93005; 96361; 96374; 99285; J7030; A4216; J2405

== ENCOUNTER → 2019-12-15 07:58 | Outpatient (CLI) | payer MEDICAID, SELFPAY ==
[2019-10-11 14:07] VITALS: BMI 19.5
--- NOTE | 2019-12-15 08:02 | US_ITS ---
STUDY: RENAL ULTRASOUND - COMPLETE REASON FOR EXAM: Female, 64 years old. BACK PAIN -- HX OF BILAT STONES TECHNIQUE: Ultrasound evaluation of the kidneys was performed with real-time and static yañez-scale imaging. COMPARISON: None. FINDINGS: RIGHT KIDNEY: Normal location of the right kidney, which is normal in size. The right kidney measures 10.2 cm x 6.7 cm x 5.5 cm. There is a normal cortex of the right kidney. The renal cortex measures 2.4 cm. There is no right renal mass or cyst. There are at least 3 nonobstructive right intrarenal calculi. The largest measures 5 mm. There is no right hydronephrosis. DISTAL RIGHT URETER: There is non-visualization of the distal right ureter. There is no demonstrated right ureterovesical junction calculus. There is a visualized right ureteral jet. LEFT KIDNEY: Normal location of the left kidney, which is normal in size. The left kidney measures 9.6 cm x 4.6 cm x 4.5 cm. There is a normal cortex of the left kidney. The renal cortex measures 1.6 cm. There is no left renal mass or cyst. At least 3 nonobstructive calculi are seen. The largest measures 4 mm. There is no left hydronephrosis. DISTAL LEFT URETER: There is non-visualization of the distal left ureter. There is no demonstrated left ureterovesical junction calculus. There is a visualized left ureteral jet. BLADDER: The distended urinary bladder has a volume of 289 ml. There is a normal wall thickness of the distended urinary bladder. There is no demonstrated mass within the urinary bladder. There are no demonstrated bladder calculi. US/Kidney and Bladder IMPRESSION: Multiple bilateral nonobstructive intrarenal calculi. Electronically Signed: Hammad Middleton, at 12:14 EDT , Service support ,
== END ==
PROVIDERS: PCP Family Medicine; Referring Provider Urology; Visit Provider Urology
DX: N20.0 Calculus of kidney (principal); Z87.442 Personal history of urinary calculi
CPT/HCPCS: 76770

== ENCOUNTER → 2020-02-29 14:15 | Outpatient (CLI) | payer MEDICAID, SELFPAY ==
[2019-10-11 14:07] VITALS: BMI 19.5
--- NOTE | 2020-02-29 14:18 | RAD_ITS ---
STUDY: X-RAY - ABDOMEN/PELVIS REASON FOR EXAM: Female, 64 years old. retention of urine, pelvic and perineal pain TECHNIQUE: Single AP view of the abdomen / pelvis. COMPARISON: None. FINDINGS: Normal visualized lung bases. There is an unremarkable bowel gas pattern. There is no demonstrated free abdominal air. Calcified splenic granulomata. Bilateral renal calculi. Cholecystectomy clip. Normal soft tissue structures. Normal visualized osseous structures. RAD/Abdomen Single View IMPRESSION: Bilateral renal calculi. Normal bowel gas pattern. Electronically Signed: Rashaun Anand MD at 17:16 EDT Tel , Service support ,
== END ==
PROVIDERS: PCP Family Medicine; Referring Provider Urology; Visit Provider Urology
DX: R10.2 Pelvic and perineal pain (principal); R33.9 Retention of urine, unspecified
CPT/HCPCS: 74018

== ENCOUNTER → 2020-05-07 14:49 | Outpatient (CLI) | payer MEDICAID, SELFPAY ==
--- NOTE | 2020-05-07 14:50 | CT_ITS ---
STUDY: LOW DOSE CT LUNG CANCER SCREENING REASON FOR EXAM: Female, 64 years old. LUNG CANCER SCREENING. 1PPD X 45 YEARS. COPD. LUNG BX IN PAST RADIATION DOSAGE (If Supplied By Facility): CTDIvol = ( 1.70 ) mGy, DLP = ( 53.40 ) mGycm TECHNIQUE: No contrast was administered. Low dose technique was utilized (average mAS-38 and kVp 120). 1.25 mm axial source images with a slice interval of 1.25-mm were reconstructed in lung windows. 2.5 mm axial source images with a slice interval of 2.5-mm were reconstructed in lung windows. 5.0 mm axial source images with a slice interval of 5.0-mm were reconstructed in soft tissue windows. Nodule measured using lung windows on PACS and/or independent workstation with automated measurement of minimum and maximum diameter. Nodule measurement reported as average diameter rounded to the nearest whole number. Growth is defined as an increase ins size of greater than 1.5 mm. COMPARISON: Comparison is made with prior study dated 04/27/2019. NODULES: There now is evidence of a 1.4 cm Bard 2.4 cm irregular heterogeneous nodule in the right upper lobe as seen on axial image #56. There is also evidence of a new 6.1 mm nodule in the posterior-lateral aspect of the left upper lobe. Stable scarring seen in the upper lobes. Emphysema: Diffuse emphysema with centrilobular emphysematous changes in the lungs worse in the upper lobes. Stable scarring with bronchiectasis and volume loss in the medial aspect of the right middle lobe. Stable mild scarring in the lower lobes with evidence of bronchiectasis. Endobronchial lesion: None Aorta: Mild atherosclerotic calcification. Coronary arteries: Mild atherosclerosis. Heart: Unremarkable. CT/Low Dose CT Lung Screening IMPRESSION: Lung-RADS category 4B - Chest CT with or without contrast, PET/CT and/or tissue sampling can be obtained depending on the probability of malignancy and comorbidities. IMPORTANT NOTES FOR USE: ACR Lung-RADS Version 1.0 Assessment Categories Release Date: October 23, 2013 Category: Coded 0-4 bases on nodule(s) with highest degree of suspicion. Negative screen is defined as categories 1 and 2; a positive screen is defined as categories 3 and 4. Category 3 and 4A nodules that are unchanged on interval CT should be coded as category 2, and individuals returned to screening in 12 months. Category 4X: Category 3 or 4 nodules with additional imaging findings that increase the suspicion of lung cancer, such as spiculation, GGN that doubles in size in 1 year, enlarged lymph notes, etc. Category Modifiers: S (significant finding unrelated to lung cancer) and C (prior history of treated lung cancer) may be added to the 0-4 Lung-RADS Electronically Signed: Hammad Middleton, at 15:27 EST , Service support ,
== END ==
PROVIDERS: PCP Family Medicine; Referring Provider Internal Medicine Critical Care Medicine; Visit Provider Internal Medicine Critical Care Medicine
DX: Z12.2 Encounter for screening for malignant neoplasm of respiratory organs (principal); F17.210 Nicotine dependence, cigarettes, uncomplicated
CPT/HCPCS: G0297

== ENCOUNTER → 2020-05-08 13:52 | Outpatient (CLI) | payer MEDICAID, SELFPAY ==
[2020-05-08 13:04] VITALS: BMI 20.1
[2020-05-08 14:12] LABS: Platelet Count 256 K/mm3 (150-450)
[2020-05-08 14:19] LABS: Partial Thromboplast Time 24.6 Seconds (24.1-36.2)
[2020-05-08 22:07] LABS: Xtra Tube EP Lab EXTRA TUBE
== END ==
PROVIDERS: PCP Family Medicine; Referring Provider Nurse Practitioner Acute Care; Visit Provider Nurse Practitioner Acute Care
DX: R06.02 Shortness of breath (principal)
CPT/HCPCS: 36415; 85049; 85610; 85730

== ENCOUNTER → 2020-05-20 08:45 | Outpatient (CLI) | payer MEDICAID, SELFPAY ==
[2020-05-08 13:04] VITALS: BMI 20.1
[2020-05-20] VITALS (13 sets, daily range): BP systolic 106–141; BP diastolic 37–97; PULSE 62–83; RESP 16–23; TEMP 36.7; O2SAT 94–100; BMI 20.1
--- NOTE | 2020-05-20 | IMM_PTH ---
PATIENT: LACEY NICOLE LOC: CT U#:[id number] AGE/SX: 69/F ROOM: RE05/20/[address]: JOE Garza : 1955 BED: DIS: SPEC #: [id number] RECD: 05/21/20 11:39 STATUS: JAMAAL REQ #: [id number] NIGHAT: 05/20/20 00:[address]: Odalys Page NP DEPT: IMMUNOHISTOCHEMISTRY RECD BY: Mignon Loyola ENTERED: 05/21/20 11:40 SP TYPE: IMMUNO OTHR DR: Dr. Krish Martinez MD Tissues: Right upper lobe of lung, NOS Procedures: Vipin Ret (add) CK5-6 (add) Pankeratin (initial) P40 (add) PHYSICIAN & INSTITUTION [place] [id number] SPECIMEN INFORMATION: Tissue Source: Right upper lung mass, CT-guided core biopsy Clinical Info: Right upper lung mass Specimen Number: [id number] CPT code: 33391, 85658 x3 METHODOLOGY: Deparaffinized sections of prefer/formalin-fixed tissue or PAP/DQ stained slides are incubated with monoclonal/polyclonal antibodies/oligonucleotide probes. Localization is made via biotin free immunoperoxidase method. Appropriate controls are performed and reacted as expected. Results on target cell population are indicated in the following table: RESULTS: ANTIBODY / CLONE RESULT AE1-3 (AE1/AE3/PCK26) positive CK5-6 (D5 & 1684) positive CALRET (polyclonal) negative P40 (BC28) positive These tests were developed and their performance characteristics determined by [facility]. They may not have been cleared or approved by the U.S. Food and Drug Administration. The FDA has determined that such clearance or approval is not necessary. The above immunohistochemical/dualISH markers are ordered and reviewed by the Pathologist. INTERPRETATION: Right upper lung mass, CT-guided core biopsy: Negative for malignancy. INES:chantelle 05/22/20
--- NOTE | 2020-05-20 | ASPIGT_PTH ---
PATIENT: LACEY NICOLE LOC: [place] U#:[id number] AGE/SX: 69/F ROOM: RE05/20/[address]: JOE Garza : 1955 BED: DIS: SPEC #: [id number] RECD: 05/20/20 12:08 STATUS: JAMAAL SHERI #: [id number] NIGHAT: 05/20/20 00:[address]: Odalys Page NP DEPT: SURGICAL PATHOLOGY RECD BY: Mane Guillaume ENTERED: 05/20/20 12:08 SP TYPE: ASP RAD TOMASA DR: Dr. Krish Martinez MD Tissues: Lung, NOS Procedures: FNA Specimen Adequacy Special Stain Group II Surgery Specimen Level IV Imprint (control) HEADER OPERATION: CT-guided lung biopsy PRE-OP DIAGNOSIS: Right upper lung mass TISSUE SUBMITTED: Right upper lung 18-gauge core x2 MICROSCOPIC DIAGNOSIS Right upper lung mass, CT-guided core biopsy: Negative for malignant cells. See comment. AM:chantelle 05/21/20 COMMENT The specimen is evaluated at the time of biopsy by Dr. Saldivar. Immediate Evaluation: Pass 1 - Blood. Pass 2 - Blood. Rare pulmonary macrophages. No evidence of malignancy. The specimen contains a single fragment of mature adipose tissue with minimal chronic inflammation and attached benign mesothelial lining. Clinical correlation is suggested. Immunohistochemistry ([id number]) supports the above diagnosis. MICROSCOPIC DESCRIPTION Slides are reviewed. GROSS DESCRIPTION Received in fixative is one container labeled with the patient's name and designated right upper lung mass. The specimen consists of a minute fragment of smith tissue measuring 0.1 x <0.1 x <0.1 cm. The specimen is totally submitted in one cassette. / AM:chantelle 05/20/20 TC:5 CPT: 60758, 82751
--- NOTE | 2020-05-20 10:10 | CT_ITS ---
CLINICAL HISTORY: Female, 64 years old. PROCEDURE: CT directed lung biopsy of a biopsy of a pleural-based mass lesion in the right upper lobe CONSENT: Informed consent was obtained from the patient with her in attendance. I talked to the patient about possible complications including pneumothorax and hematoma in the patient stands and agrees to this procedure. SEDATION: 2 mg of VERSED and 75 mcg of FENTANYL was intravenously injected for conscious sedation STERILE BARRIER TECHNIQUE: The following sterile barrier precautions were used during the procedure: hand hygiene; use of BETADINE swabs; use of a , mask, and sterile gloves, a sterile fashion straight drape was also utilized. TECHNIQUE: Initially a localization grid was placed on the patient''s back and the patient was placed in a prone position. Because of the difficult location of this lesion and difficult entry site between the ribs the patient was placed in a left lateral decubitus position to see if a more optimal positioning couldn''t be obtained. When the patient was placed in this lateral projection position the lesion was not more attainable and so the patient was placed back on a prone position and a repeat localization scan was performed. The site was marked and the skin was sterilely prepped in the usual fashion. After this 2% LIDOCAINE was subcutaneously instilled down to the lesion and conscious sedation was induced. I attempted to pass a needle down to the lesion but instead created a 20% pneumothorax. After readjustment of the needle tip to the more medial position of the lesion, the 18-gauge biopsy gun was reinserted down to the lesion and 2 biopsy specimens were obtained. The initial biopsy specimen was inadequate. A subsequent data biopsy specimen showed macrophages and inflammatory material which was felt to be congruent with the imaging findings. The biopsy portion of the procedure was terminated. Upon removal of the biopsy gun a three-way stopcock cock up to tubing and a 50 cc syringe was placed on the coaxial biopsy device without the biopsy gun. This coaxial biopsy stylette was slowly withdrawn from the patient and during this withdrawal the pneumothorax was aspirated. The post biopsy CT scan showed only a small residual pneumothorax. Inspiration and expiration chest x-ray images were obtained and showed a 2-3% right apical pneumothorax and a small amount hemorrhage at the biopsy site within the lung. The 2 hour image showed that the pneumothorax had not expanded. I talked with the patient and her vital signs appeared good and the patient appeared to be in good condition and was discharged. The patient will have a repeat chest x-ray on 05/21/2020 to check the progress of the pneumothorax. The patient is and her was present and both were informed that if the pneumothorax would get worse in the evening the patient would have tremendous right-sided chest pain and shortness of breath and should be immediately brought into the emergency room. # of Images: 272 CT/Biopsy/Inj or Needle Placement IMPRESSION: 1. A CT directed lung biopsy of a difficult lesion in the right upper lobe was performed. The initial path report was of benign material and we are awaiting the final pathology report. 2.The patient developed a 20% right apical pneumothorax during this procedure which was almost completely aspirated at the termination of the procedure. The patient was discharged home with a known 2-3% right apical pneumothorax, which will be followed tomorrow. Electronically Signed: Hadley Abad, at 15:42 EST Tel , Service support ,
[2020-05-20] MEDS: Midazolam 2 MG/2 ML Syringe IV ×2 (10:29→11:02)
[2020-05-20] MEDS: fentaNYL 100 MCG/2 ML Ampul IV ×3 (10:31→11:25)
--- NOTE | 2020-05-20 11:13 | NURSING ---
PROCEDURAL SEDATION ASSESSMENTS CONTINUED: 11. 1115 BP: 101/48 HR: 66 NSR RESPIRATIONS: 19 SPO2 100% 2L PAIN LEVEL 7-8/10 IN BILATERAL ARMS WHICH ARE PLACED OVER PATIENT'S HEAD IN PRONE POSITION. 12. 1120 BP: 110/41 HR: 65 NSR RESPIRATIONS: 19 SPO2: 100% 2L PAIN LEVEL: 7-8/10 IN BILATERAL ARMS. MULTIPLE SCANS HAVE BEEN TAKEN TO ASSESS PROPER POSITIONING OF BIOPSY NEEDLE DUE TO DIFFICULT LOCATION TO ACCESS. 1123 SAMPLE TAKEN, PATHOLOGY REPORTS NOT PROPER TISSUE, PT REPORTS SIGNIFICANT RIGHT ARM PAIN, DR. MENDOZA ORDERS 25MCG MORE FENTANYL (SEE AUG). 13. 1125 BP: 99/52 HR: 66 NSR RESPIRATIONS: 20 SPO2: 100% 2LNC PAIN LEVEL: 4/10 ADDITIONAL BIOPSY SAMPLE TAKEN. 14. 1130 BP:103/43 HR: 67 NSR RESPIRATIONS: 19 SPO2: 99% PNEUMOTHORAX BEING ASPIRATED 15. 1135 BP: 113/43 HR: 59 NSR RESPIRATIONS: 19 SPO2: 100% 2LNC BIOPSY NEEDLE REMOVED. SURGILUBE, 4X4 GAUZE AND OPSITE APPLIED TO RIGHT SCAPULA REGION. PT TOLERATED WELL.
--- NOTE | 2020-05-20 11:50 | RAD_ITS ---
EXAM DESCRIPTION: PORTABLE AP CHEST CLINICAL HISTORY: 64 years Female, IMMEDIATE POST RIGHT SIDED LUNG BIOPSY IMMEDIATE POST RIGHT SIDED LUNG BIOPSY COMPARISON: Recent CT scan performed during a CT directed lung biopsy of the FINDINGS: Inspiration and expiration chest x-ray was performed after a CT directed right lung biopsy.. The thorax is intact. The heart and mediastinum appear to be within normal limits. The lungs demonstrate a 2-3% right apical pneumothorax with some increased alveolar density noted at the biopsy site in the right upper lobe. The left lung appears to be normal. RAD/Chest Insp/Exp 2 View IMPRESSION: A tiny 2-3% right apical pneumothorax is identified on the initial postbiopsy images with some mildly increased density in the superior lateral right upper lobe representing hemorrhage at the biopsy site.. Electronically Signed: Hadley Abad, at 12:29 EST Tel , Service support ,
--- NOTE | 2020-05-20 13:51 | RAD_ITS ---
EXAM DESCRIPTION: Inspiration and expiration PORTABLE AP CHEST CLINICAL HISTORY: 64 years Female, 2 hour post lung biopsy 2 hour post lung biopsy COMPARISON: Recent CT directed lung biopsy obtained on 05/20/2020, previous chest x-ray obtained on 05/20/2020 11:49 AM FINDINGS: The thorax is intact. The heart and mediastinum appear to be within normal limits. The left lung is normal. There is a small apical 2- 3% right pneumothorax from a recent right lung biopsy which was previously identified and is unchanged. A small amount of hemorrhage is noted at the biopsy site in the right upper lobe. RAD/Chest Insp/Exp 2 View IMPRESSION: A small, 2-3%, right apical pneumothorax is identified which is unchanged.. Electronically Signed: Hadley Abad, at 15:46 EST Tel , Service support ,
--- NOTE | 2020-05-21 13:00 | RAD_ITS ---
EXAM DESCRIPTION: PORTABLE AP CHEST CLINICAL HISTORY: 64 years Female, pneumothorax -- follow up CT biopsy 05-20-20 pneumothorax -- follow up CT biopsy 05-20-20 COMPARISON: Previous chest obtained on 05/20/2020 FINDINGS: Inspiration and expiration chest x-ray was performed. The thorax is intact. The heart and mediastinum appear to be within normal limits. The lungs show some hazy opacification in the right lung apex from a recent lung biopsy and residual hemorrhage. A tiny right apical pneumothorax is seen which is unchanged. I spoke with the patient about this and discharge the patient. She will follow-up with her attending physician regarding the results of the biopsy RAD/Chest Insp/Exp 2 View IMPRESSION: A small right apical pneumothorax is noted from a recent lung biopsy which is unchanged. Electronically Signed: Hadley Abad, at 14:27 EST Tel , Service support ,
== END ==
PROVIDERS: PCP Family Medicine; Referring Provider Nurse Practitioner Acute Care; Visit Provider Nurse Practitioner Acute Care
DX: R91.8 Other nonspecific abnormal finding of lung field (principal); J93.83 Other pneumothorax
CPT/HCPCS: 32405; 71046; 77012; 88172; 88305; 88313; 88341; 88342; 99155; 99156; 99157; J7040; A4216

== ENCOUNTER → 2020-09-06 13:48 | Outpatient (CLI) | payer MEDICAID, SELFPAY ==
[2020-05-24 13:08] VITALS: BMI 20.2
--- NOTE | 2020-09-06 13:48 | CT_ITS ---
INDICATION: surveillance of known mass EXAMINATION: CT CHEST WITHOUT CONTRAST - CT Chest W/O Contrast Injection TECHNIQUE: Helically acquired images were obtained of the chest without IV contrast. A radiation dose optimization technique was used for this scan. COMPARISON: 04/06/2020. FINDINGS: Lungs: Stable 2.2 x 1.2 cm irregular heterogeneous cavitary nodule in the right upper lobe (axial image 60). Stable 9 mm nodule in the posterior-lateral aspect of the left upper lobe (axial image 52). Stable scarring seen in the upper lobes. Diffuse emphysema with centrilobular emphysematous changes in the lungs worse in the upper lobes. Stable scarring with bronchiectasis and volume loss in the medial aspect of the right middle lobe. Stable mild scarring in the lower lobes with evidence of bronchiectasis. Mediastinum: The cardiomediastinal silhouette is not enlarged. Unchanged subcarinal node measuring 1.5 cm. Calcified mediastinal and left hilar lymph nodes. No axillary or hilar adenopathy. Mild aortic arch and coronary artery calcifications. Pleura: Scattered subsegmental atelectasis. Bones/Soft tissues: Mild scattered degenerative changes of the visualized spine. Upper abdomen: Granulomatous calcifications of the spleen. CT/Chest without Contrast IMPRESSION: Lung-RADS category 4B - PET/CT and/or tissue sampling can be obtained depending on the probability of malignancy and comorbidities. Stable 2.2 cm irregular cavitary nodule in the right upper lobe and 9 mm nodule in the left upper lobe. Emphysematous changes with right middle lobe scarring and bronchiectasis. Electronically Signed: Chong Hinton MD at 20:24 EST Tel , Service support ,
== END ==
PROVIDERS: PCP Family Medicine; Referring Provider Nurse Practitioner Acute Care; Visit Provider Nurse Practitioner Acute Care
DX: R91.8 Other nonspecific abnormal finding of lung field (principal)
CPT/HCPCS: 71250

== ENCOUNTER → 2020-10-01 16:12 | Outpatient (CLI) | payer MEDICAID, SELFPAY ==
[2020-09-20 11:03] VITALS: BMI 20.4
--- NOTE | 2020-10-01 16:00 | PET_ITS ---
EXAMINATION: FDG PET/CT INDICATIONS: A 65-year-old female with reported history of pulmonary nodularity. COMPARISON EXAMINATION: CT of the chest report dated 09/06/20 INDEX LESION SIZE SUV INTERPRETATION Right upper lung-right upper lobe 26.4-mm (frame 167) 1.7 Quantitative criteria for viable neoplasm are not fulfilled, sequential radiologic investigation recommended NON-INDEX LESION SIZE SUV INTERPRETATION Bilateral thoracic perihilum 2.3 (max) Quantitative criteria for viable neoplasm are not fulfilled TECHNIQUE: Following the intravenous administration of 12.96 mCi of F-18 deoxyglucose via the right antecubital fossa, multiplanar image acquisitions of the neck, chest, abdomen and pelvis to level of mid thigh, obtained at one hour post radiopharmaceutical administration contemporaneously interpreted with the current CT of the neck, chest, abdomen and pelvis to level of mid thigh, dated 10/01/[address] of the chest report dated 09/06/20 reveal: SERUM GLUCOSE LEVEL: 87 mg/dl. FINDINGS: 1. Focal increased fluorine labeled glucose metabolism is manifest in the right upper lateral lung-right upper lobe corresponding to a cavitated density defined on CT of the chest dated 10/01/20. The calculated maximal standard uptake value is 1.7. The maximal axial diameter of the corresponding parenchymal density on review of CT of the chest dated 10/01/20 is 28.4-mm (transverse). 2. Enhanced tracer uptake is observed in the region of the bilateral thoracic perihilum rendering a calculated maximal standard uptake value of 2.3. Quantitative criteria for neoplasm are not fulfilled. 3. Normal physiologic distribution of the radiopharmaceutical is apparent in the hepatic (2.4) and splenic parenchyma, both renal units, bladder and visualized intestinal tract. The visualized portion of the cerebral cortex demonstrate symmetric and preserved glucose metabolism. Diffuse radiopharmaceutical concentration is noted in all four quadrants of the abdomen and pelvis. Pertinent CT findings are as follows: CHEST: Additional densities defined in the bilateral hemithorax reveal no evidence of quantitatively significant increased FDG concentration. Emphysematous changes are noted in the bilateral upper lung zones. There is atherosclerotic calcification defined in the thoracic aorta without evidence of dilatation-aneurysm formation. Coronary arterial calcification is observed. Calcified and non-calcified mediastinal and thoracic perihilar soft tissue demonstrates no evidence of quantitatively significant enhanced FDG uptake. Bilateral subcentimeter axillary soft tissue densities with fatty hilus are ametabolic. ABDOMEN AND PELVIS: There is atherosclerotic calcification defined in the abdominal aorta without evidence of dilatation-aneurysm formation. Pelvic arterial calcification is demonstrated. The gallbladder is surgically absent. Calcified granuloma formation is manifest within the splenic parenchyma. Calcifications are observed in the bilateral renal units. SKELETAL: Degenerative changes are noted in the cervical, thoracic and lumbar spine without evidence of increased radiopharmaceutical concentration. There is diffuse demineralization identified throughout the axial skeletal structures. PET/PET/CT Tumor Base -Thigh Init IMPRESSION: 1. NEGATIVE EXAMINATION. There is no definitive quantitative scintigraphic evidence of viable neoplasm. 2. Increased glucose concentration observed in the right upper lung-right upper lobe does not fulfill quantitative criteria for viable neoplasm. (Perez et al, Annals of Internal Medicine, 138:724, 2003). 3. Metabolic and/or anatomic stability may be ensured in the right upper lung-right upper lobe abnormality with repeat FDG PET study and/or CT of the thorax in 3-6 months if clinically indicated. (Xiu, Journal of Nuclear Medicine 45:88, P2004 Jayesh, Seminars in Thoracic and Cardiovascular Surgery 14:292, 2002). 4. Enhanced tracer uptake observed in the bilateral thoracic perihilum does not fulfill quantitative criteria for viable neoplasm. Electronic Signature Diego John D.O. Accurate Quantification of SUVs for this report are calculated using the exclusive [employer]? Technology.??Exclusive [place]. Patent [employer]? Technology ([place].S. Patent No. [phone]). Electronically Signed: Diego John DO at 14:40 EDT Tel , Service support ,
== END ==
PROVIDERS: PCP Family Medicine; Referring Provider Internal Medicine Critical Care Medicine; Visit Provider Internal Medicine Critical Care Medicine
DX: R91.1 Solitary pulmonary nodule (principal)
CPT/HCPCS: 78815; A9552

== ENCOUNTER → 2021-04-04 13:38 | Outpatient (CLI) | payer MEDICAID, SELFPAY ==
--- NOTE | 2021-04-04 13:39 | CT_ITS ---
STUDY: CT Chest W/O Contrast Injection 04/04/2021 3:04 PM REASON FOR EXAM: Female, 65 years old. follow lung mass, smoker Individualized dose optimization techniques were used for this CT. TECHNIQUE: Transaxial imaging was performed withoutIV contrast material. COMPARISON: PET 4.6. FINDINGS: There are degenerative changes of the shoulders. There is no pneumothorax. There is no demonstrated pleural abnormality. Enlargement of the left upper lobe nodule. Presently, it measures 13 mm and is cavitary. Series 4 image 16. Mild pulmonary emphysema. There are multiple other pulmonary nodules throughout both lung mcconnell. Several of these are cavitary. Tree in bud type infiltrate of the right middle lobe. Stable scarring of the right middle lobe. Cavitary lesion of the right upper lobe has enlarged. It presently measures 15 mm. Series 4 image 31. There are calcifications of the coronary arteries. Calcified mediastinal and hilar lymph nodes. Normal pulmonary arteries. There is atherosclerotic calcification of the aortic arch with tortuosity and elongation of the aortic arch and descending thoracic aorta. There are multi-level degenerative changes of the thoracic spine. There are no acute findings of the upper abdomen. CT/Chest without Contrast IMPRESSION: There are enlarged bilateral cavitary nodules. Development of multiple new solid and/or cavitary nodules. Given short time frame, metastatic disease is felt to be less likely but not excluded. Findings may represent cavitary pneumonia. Follow-up study is advised to exclude underlying neoplasm. Electronically Signed: Naun Rajput MD at 15:10 EDT , Service support ,
== END ==
PROVIDERS: PCP Family Medicine; Referring Provider Nurse Practitioner Acute Care; Visit Provider Nurse Practitioner Acute Care
DX: R91.8 Other nonspecific abnormal finding of lung field (principal)
CPT/HCPCS: 71250

== ENCOUNTER → 2021-04-17 11:59 | Outpatient (CLI) | payer MEDICAID, SELFPAY ==
[2021-04-17 13:49] LABS: Rheumatoid Factor < 10.0 IU/mL (<15)
[2021-04-18 13:22] LABS: ANTINUCLEAR ANTIBODIES DIRECT Negative (Negative)
[2021-04-20 17:07] LABS: Aspirgillus flavus Negative (Neg:<1:1); Aspirgillus fumigatus Negative (Neg:<1:1); Aspirgillus niger Negative (Neg:<1:1); Cytoplasmic Ab (C-ANCA) <1:20 titer (Neg:<1:20)
[2021-04-20 17:13] LABS: CCP IgG Antibodies 5 units (0-19); Perinuclear Ab (P-ANCA) <1:20 titer (Neg:<1:20)
== END ==
PROVIDERS: PCP Family Medicine; Referring Provider Internal Medicine Critical Care Medicine; Visit Provider Internal Medicine Critical Care Medicine
DX: R91.8 Other nonspecific abnormal finding of lung field (principal)
CPT/HCPCS: 36415; 86038; 86200; 86225; 86235; 86256; 86431; 86606; 87070; 87077; 87186; 87205

== ENCOUNTER → 2021-04-22 14:20 | Outpatient (CLI) | payer MEDICAID, SELFPAY ==
[2021-04-29 16:08] LABS: QNTFERON TB Mitogen Value > 10.00 IU/mL (.); QNTFERON TB Nil Value 0.11 IU/mL (.); QNTFERON TB1+ Ag Value 0.07 IU/mL (.); QNTFERON TB2+ Ag Value 0.09 IU/mL (.)
[2021-04-29 16:39] LABS: QNTIFERON TB Positive Criteria Negative (Negative)
== END ==
PROVIDERS: PCP Family Medicine; Referring Provider Internal Medicine Critical Care Medicine; Visit Provider Internal Medicine Critical Care Medicine
DX: R91.8 Other nonspecific abnormal finding of lung field (principal)
CPT/HCPCS: 36415; 86480

== ENCOUNTER 2021-05-19 11:42 | Emergency (ER) | payer MEDICAID, SELFPAY ==
[2021-05-19 11:42] VITALS: BP 142/71; PULSE 86; RESP 16; TEMP 36.6; O2SAT 93; BMI 20.7
[2021-05-19 12:17] VITALS: BP 123/60; PULSE 76; PULSE 77; RESP 23; TEMP 36.6; O2SAT 94
--- NOTE | 2021-05-19 12:20 | RAD_ITS ---
HISTORY: cough EXAMINATION/TECHNIQUE: XR Chest 1 View: Portable upright AP chest x-ray COMPARISON: Chest x-ray 05/21/20, chest CT 04/04/21 FINDINGS: LINES/DEVICES: Digital control unit projects over the left midlung field. LUNGS: Stable coarsening of interstitial markings without consolidation, edema or effusion. 12 mm left apical nodule corresponding to prior CT findings, remaining known pulmonary nodules not seen on current examination. MEDIASTINUM AND CARDIOVASCULAR STRUCTURES: Cardiac silhouette not enlarged. Central airways and mediastinal contour are unremarkable. BONES AND SOFT TISSUES: No acute bony abnormalities. RAD/Chest 1 View (Portable) IMPRESSION: No radiographic evidence of acute cardiopulmonary disease. Redemonstration of known left apical pulmonary nodule. at 1307 Reported and signed by: Phil Garcia MD Electronically Signed: Phil Garcia MD at 13:05 EST Tel , Service support ,
--- NOTE | 2021-05-19 12:24 | ED.VIS.DYS ---
HPI History of Present Illness Chief Complaint: Shortness of Breath Informant: patient Narrative Narrative: 65-year-old female presents the emergency department with dyspnea. She has a history of COPD and follows with Dr. Owen. She states that she fell ill approximately 8 days ago. She had been to a [place] where someone in the family had Covid. She notes cough with some sputum production. She denies any fevers. She does not wear home oxygen. She has been monitoring her oxygen levels and notes they have been usually in the mid 90s. She has been using her nebulizer and her incentive spirometer. She was vaccinated. [facility] Medical History (Updated 05/19/21 @ 13:[address] Kojo Garrett, DO) Acute exacerbation of chronic obstructive pulmonary disease (COPD) Anxiety Asthma Bronchitis CAP (community acquired pneumonia) Chronic hypoxemic respiratory failure COPD (chronic obstructive pulmonary disease) Depression Emphysema lung GERD (gastroesophageal reflux disease) History of diabetes mellitus History of essential hypertension Insomnia Kidney stones Osteoporosis Tobacco dependence due to cigarettes Home Medications hydrocodone-acetaminophen 1 ea PO PRN PRN 09/30/17 [History Last Taken 05/20/20 06:00] loratadine 10 mg PO DAILY PRN 09/30/17 [History Last Taken 05/17/20] polyethylene glycol 3350 17 gm PO DAILY PRN 09/30/17 [History Last Taken Unknown] cholecalciferol (vitamin D3) 2,000 unit PO DAILY 11/18/18 [History Last Taken Unknown] hydroxyzine HCl 25 mg PO BID PRN PRN 11/18/18 [History Last Taken Unknown] albuterol sulfate 2.5 mg INHALATION Q2H PRN PRN #180 vial 04/09/20 [Rx Last Taken Unknown] albuterol sulfate 90 mcg/actuation aerosol inhaler 2 puff INHALATION Q4H PRN #8.5 g 04/17/21 [Rx Last Taken Unknown] fluticasone propionate 50 mcg/actuation nasal spray,suspension 1 spray INTRANASAL BID #15.8 ml 04/17/21 [Rx Last Taken Unknown] ipratropium 20 mcg-albuterol 100 mcg/actuation mist for inhalation 1 puff INHALATION Q6H #4 g 04/17/21 [Rx Last Taken Unknown] mometasone 200 mcg/actuation HFA aerosol inhaler 2 puff INHALATION BID #13 g 05/02/21 [Rx Last Taken Unknown] tiotropium 2.5 mcg-olodaterol 2.5 mcg/actuation mist for inhalation 2 inh INHALATION DAILY #4 g 05/02/21 [Rx Last Taken Unknown] prednisone 60 mg PO DAILY #15 tablet 05/19/21 [Rx Last Taken Unknown] Allergy/AdvReac Type Severity Reaction Status Date / Time aclidinium AdvReac Other Verified 05/19/21 11:44 [From Tudorza Pressair] doxycycline AdvReac Other Verified 05/19/21 11:44 gabapentin AdvReac Other Verified 05/19/21 11:44 ipratropium AdvReac Other Verified 05/19/21 11:44 levofloxacin [From Levaquin] AdvReac Other Verified 05/19/21 11:44 methylprednisolone AdvReac Other Verified 05/19/21 11:44 sertraline [From Zoloft] AdvReac Upset Verified 05/19/21 11:44 Stomach sulfamethoxazole AdvReac Other Verified 05/19/21 11:44 [From Bactrim] trimethoprim [From Bactrim] AdvReac Other Verified 05/19/21 11:44 umeclidinium AdvReac Other Verified 05/19/21 11:44 [From Incruse Ellipta] Family History Grandmother Cancer Lung Brother Diabetes Hypertension Father Hypertension Embolism Sister Hypertension Diabetes Surgical History History of cholecystectomy Social History Smoking Status: Current every day smoker tobacco type: cigarettes Tobacco: How many years used: 41 second hand exposure: Yes alcohol intake: never substance use type: does not use caffeine: Yes Type: coffee what type of physical activity do you participate in: none ROS ROS ED Constitutional Constitutional ED: Denies chills or weight loss Eyes Eyes: Denies change in vision or diplopia ENT ENT ED: Denies ear pain, rhinorrhea or sore throat Cardiovascular Cardiovascular: Denies chest pain, orthopnea, palpitations or racing heartbeat Respiratory/Chest Respiratory/Chest: Reports cough, dyspnea, dyspnea on exertion and sputum; Denies orthopnea Gastrointestinal Gastrointestinal: Denies abdominal pain, diarrhea, nausea or vomiting Genitourinary Genitourinary ED: Denies dysuria, hematuria or urinary frequency Musculoskeletal Musculoskeletal: Denies arthralgias or myalgias Integumentary Denies abscess or rash Neurologic Neurologic: Denies headache(s) or weakness Psychiatric Psychiatric: Denies anxiety, depression, suicidal ideation or suicidal thoughts Endocrine Endocrinology: Denies polydipsia, polyphagia or polyuria Allergic/Immunologic Allergic/Immunologic ED: Denies mouth swelling, tongue swelling or urticaria EXAM Physical Exam Const Vital Signs: 05/19/21 11:42 05/19/21 12:17 Temperature 97.9 F 97.9 F Temperature Source Temporal Temporal Pulse Rate 86 77 Respiratory Rate 16 23 H Blood Pressure 142/71 H 123/60 H Blood Pressure Mean 94 81 Pulse Ox 93 94 Oxygen Delivery Method Room Air Room Air Positive well nourished and well developed General Appearance ED: well developed HEENT Reports normocephalic, head/scalp atraumatic and moist mucous membranes; Denies TM's clear atraumatic Tympanic Membrane ED: Negative for TM's clear Eyes PERRL and EOMs intact bilaterally Neck no lymphadenopathy, supple and no JVD Resp normal respiratory effort Auscultation: rhonchi and wheezes expiratory wheezes Cardio regular rate, regular rhythm and no murmurs GI normal to inspection, nondistended, normoactive bowel sounds and non-tender Palpation: soft Back/Spine no CVA tenderness and normal ROM Extremity normal to inspection General Extremety ED: Negative for edema General Extremity: Negative for edema Neuro oriented x3 and CN's II-XII intact bilaterally Sensorium / Orientation: alert Motor Exam: strength 5/5 throughout Psych mental status grossly normal Mood & Affect: Negative for depressed or tearful Skin no rashes or lesions noted and no wounds MDM MDM MDM Narrative Medical decision making narrative: Basic blood work essentially negative. My interpretation of the chest x-ray is no acute process. Her rapid Covid was negative. The patient will have a Covid PCR performed. If she is positive we can refer her for monoclonal antibody treatment but as this will take several hours to get back I do not feel that she needs to stay here. The patient received oral prednisone. I will discharge her home with a prescription for same. She has nebulizer which I recommend using every 4 hours. Return if worsening or concerns Lab Data Attestation: I reviewed the patient's lab results. Labs: Laboratory Results - last 24 hr 05/19/21 05/19/21 12:05 12:05 WBC 6.9 RBC 4.41 Hgb 13.5 Hct 40.8 MCV 92.5 MCH 30.6 MCHC 33.1 RDW Std Deviation 41.5 RDW Coeff of Stormy 12.1 Plt Count 224 MPV 9.6 Immature Gran % (Auto) 0.300 Neut % (Auto) 72.8 H Lymph % (Auto) 15.5 L [place] % (Auto) 8.1 Eos % (Auto) 2.7 Baso % (Auto) 0.6 Absolute Neuts (auto) 5.0 Absolute Lymphs (auto) 1.07 Nucleated RBC % 0 Sodium 137 Potassium 3.7 Chloride 103 Carbon Dioxide 30.0 Anion Gap 4 L BUN 13 Creatinine 0.64 Estim Creat Clear Calc 71.16 Est GFR (MDRD) Af Amer 120 Est GFR (MDRD) Non-Af 99 BUN/Creatinine Ratio 20.2 H Glucose 98 Calcium 8.7 Total Bilirubin 0.30 AST 17 ALT 17 Alkaline Phosphatase 73 Total Protein 7.4 Albumin 3.6 Globulin 3.8 Albumin/Globulin Ratio 0.9 Radiography Diagnostic Testing: Clinical Impression(s) from Imaging Studies Chest X-Ray 05/19/21 12:20 IMPRESSION: No radiographic evidence of acute cardiopulmonary disease. Redemonstration of known left apical pulmonary nodule. at 1307 Reported and signed by: Phil Garcia MD Electronically Signed: Phil Garcia MD at 13:05 EST Tel , Service support , Discharge Plan Triage Chief Complaint: Shortness of Breath ED Provider: Kojo Garrett Dx/Rx/DC Orders Clinical Impression: Viral respiratory illness, COPD (chronic obstructive pulmonary disease) Instructions: ED COPD Flare, ED Viral Syndrome (Adult) Prescriptions: New prednisone 20 MG tablet 60 mg PO DAILY Qty: 15 RF: 0 No Action albuterol sulfate 2.5 mg /3 mL (0.083 %) solution for nebulization 2.5 mg INHALATION Q2H PRN PRN (Reason: Dyspnea, wheezing) Qty: 180 RF: 6 albuterol sulfate [Ventolin HFA] 90 mcg/actuation HFA aerosol inhaler 2 puff INHALATION Q4H PRN (Reason: shortness of breath or wheezing) Qty: 8.5 RF: 6 fluticasone propionate [Flonase Allergy Relief] 50 mcg/actuation spray,suspension 1 spray INTRANASAL BID Qty: 15.8 RF: 6 Combivent Respimat 20-100 mcg/actuation mist 1 puff inhalation Q6H Qty: 4 RF: 6 Asmanex HFA 200 mcg/actuation HFA aerosol inhaler 2 puff inhalation BID Qty: 13 RF: 6 Stiolto Respimat 2.5-2.5 mcg/actuation mist 2 inh inhalation DAILY Qty: 4 RF: 2 polyethylene glycol 3350 17 GM packet 17 gm PO DAILY PRN (Reason: Constipation) RF: 0 hydrocodone-acetaminophen 1 EACH tablet 1 ea PO PRN PRN (Reason: Pain) RF: 0 loratadine 10 MG capsule 10 mg PO DAILY PRN (Reason: Allergies) RF: 0 hydroxyzine HCl 25 MG tablet 25 mg PO BID PRN PRN (Reason: Anxiety) RF: 0 cholecalciferol (vitamin D3) 2,000 UNIT tablet 2,000 unit PO DAILY RF: 0 Primary Care Provider: Krish Martinez Referrals: Krish Martinez MD [Primary Care Provider] - As Needed Disposition Disposition: Home, Self Care
[2021-05-19 12:35] LABS: Absolute Lymphocyte Count 1.07 X10^3/uL (0.83-4.51); Basophil# 0.04 X10^3/uL; Basophil% 0.6 % (0-1); Eosinophil# 0.19 X10^3/uL; Eosinophils% 2.7 % (0-5); Hematocrit 40.8 % (37-47); Hemoglobin 13.5 g/dL (12.0-15.0); Lymphocyte # 1.07 X10^3/ul (0.83-4.51); Lymphocyte % 15.5 % (19-41); Mean Corp Hgb Conc 33.1 g/dL (32-36); Mean Corpuscular Hgb 30.6 pg (27.0-32.0); Mean Corpuscular Volume 92.5 fL (81-99); Mean Platelet Vol. 9.6 fl (6.2-12.0); Monocyte# 0.56 X10^3/uL; Monocyte% 8.1 % (0-10); NRBC Flagged by Analyzer 0 % (0-5); Neutrophil # 5.03 X10^3/uL (2.7-7.7); Neutrophil % 72.8 % (47-70); Platelet Count 224 K/mm3 (150-450); RBC Distribution Width CV 12.1 % (11.6-14.6); RBC Distribution Width SD 41.5 fl (35.1-43.9); Red Blood Count 4.41 M/mm3 (4.2-5.4); White Blood Count 6.9 K/mm3 (4.4-11.0)
[2021-05-19] MEDS: predniSONE 20 MG Tablet 60 MG PO (12:41)
[2021-05-19 12:47] LABS: ALB/GLOB Ratio 0.9 RATIO (0.9-2.4); AST(SGOT) 17 U/L (15-37); Alanine Aminotransfer ALT/SGPT 17 U/L (13-56); Albumin, Serum 3.6 g/dL (3.2-5.0); Alkaline Phosphatase 73 U/L (45-117); Anion Gap 4 (5-15); BUN 13 mg/dL (7-18); BUN/Creat Ratio 20.2 RATIO (10-20); Calcium,Total 8.7 mg/dL (8.5-10.1); Chloride 103 mmol/L (98-107); Creatinine, Serum 0.64 mg/dL (0.55-1.02); EST Glomerular Filtration Rate 99 mL/min (>60); Est Glom Filt Rate - Afr Amer 120 mL/min (>60); Estimated Creatinine Clearance 71.16 ml/min; Globulin 3.8 g/dL (2.2-4.2); Glucose 98 mg/dL (74-106); Potassium 3.7 mmol/L (3.5-5.1); Protein, Total 7.4 g/dL (6.4-8.2); Sodium Level 137 mmol/L (136-145)
[2021-05-19 13:48] VITALS: BP 140/54; PULSE 69
== END 2021-05-19 13:54 | disposition home or self-care (01) ==
PROVIDERS: Emergency Provider Emergency Medicine; PCP Family Medicine
DX: J06.9 Acute upper respiratory infection, unspecified (principal); J44.9 Chronic obstructive pulmonary disease, unspecified; I10 Essential (primary) hypertension; F41.9 Anxiety disorder, unspecified; F17.210 Nicotine dependence, cigarettes, uncomplicated; Z79.899 Other long term (current) drug therapy
CPT/HCPCS: 71045; 80053; 85025; 87426; 87635; 99283; U0005; A4216; U0003

== ENCOUNTER → 2021-05-28 12:09 | Outpatient (CLI) | payer MEDICAID, SELFPAY ==
[2021-05-28 12:50] VITALS: PULSE 100; PULSE 101; PULSE 104; PULSE 105; PULSE 106; PULSE 108; PULSE 92; PULSE 95; O2SAT 87; O2SAT 91; O2SAT 92; O2SAT 93; O2SAT 94; O2SAT 95
--- NOTE | 2021-05-29 13:16 | WT_ITS ---
PSN 6 Minute Walk Test 6 Minute Walk Test 6 Minute Walk Test: 6 Minute Walk Test PSN:6-Minute Walk Test Start: 05/28/21 12:50 Freq: Status: Active Protocol: [id number].[id number] Document 05/28/21 12:50 FREYA (Rec: 05/28/21 12:53 FREYA [id number]) 6 Minute Walk Test Date Performed 05/28/21 Time Performed 12:30 Height 5 ft 2 in Weight: 51.256 kg Weight in Pounds 113.[address]: Wesly Owen Assistive device used: None Pre-test Oxygen Delivery Method Room Air Pulse Ox (%) 94 Pulse Rate (60-100 beats/min) 95 Dyspnea Agustin Scale (0-10) 0 Exertion Agustin Scale (6-20) 6 1st minute Oxygen Delivery Method Room Air Pulse Ox (%) 93 Pulse Rate (60-100 beats/min) 100 2nd minute Oxygen Delivery Method Room Air Pulse Ox (%) 92 Pulse Rate (60-100 beats/min) 101 H 3rd minute Oxygen Delivery Method Room Air Pulse Ox (%) 92 Pulse Rate (60-100 beats/min) 104 H 4th minute Oxygen Delivery Method Room Air Pulse Ox (%) 91 Pulse Rate (60-100 beats/min) 105 H 5th minute Oxygen Delivery Method Room Air Pulse Ox (%) 91 Pulse Rate (60-100 beats/min) 106 H 6th minute Oxygen Delivery Method Room Air Pulse Ox (%) 87 Pulse Rate (60-100 beats/min) 108 H Dyspnea Agustin Scale (0-10) 4 Exertion Agustin Scale (6-20) 14 Post-test Oxygen Delivery Method Room Air Pulse Ox (%) 95 Pulse Rate (60-100 beats/min) 92 Full Laps Walked 14 Partial Lap, Number of Tiles Walked 5 Total Distance Walked (ft) 831 Interpretation Interpretation: The patient ambulated 831 feet over the course of 6 minutes beginning on room air without assistive devices. Pretesting oxygen saturation was noted to be 94% on room air. With ambulation, the gema oxygen saturation was 87% at minute 6 of testing. This testing indicated the presence of impaired walk distance and significant exertional oxygen desaturation. Recommendations Recommendations: There is no indication for the use of supplemental oxygen at this time. However, I would recommend close interval follow-up and repeat 6- minute walk test given the degree of oxygen desaturation noted during the study.
== END ==
PROVIDERS: PCP Family Medicine; Referring Provider Internal Medicine Critical Care Medicine; Visit Provider Internal Medicine Critical Care Medicine
DX: R91.8 Other nonspecific abnormal finding of lung field (principal)
CPT/HCPCS: 94618

== ENCOUNTER → 2021-06-25 16:41 | Outpatient (CLI) | payer MEDICAID, SELFPAY ==
--- NOTE | 2021-06-25 16:44 | CT_ITS ---
INDICATION: eval for resolution of cavitary lesions, pneumonia EXAMINATION: CT CHEST WITHOUT CONTRAST - CT Chest W/O Contrast Injection TECHNIQUE: Helically acquired images were obtained of the chest. A radiation dose optimization technique was used for this scan. IV Contrast dosage and agent: None. COMPARISON: 04/05/2021 and 09/06/2020. FINDINGS: LUNGS, PLEURA AND LARGE AIRWAYS: 1.1 x 0.8 cm pleural-based soft tissue nodule visualized in the left upper lobe seen on axial series 4 image 15 demonstrates decrease in size in comparison to the prior study where it had measured 1.4 x 1.1 cm, also noted is complete resolution of the previously visualized the midline cavity no seen on the prior study. Note is made that this lesion was not present on the study dated 09/06/2020. 0.6 x 0.9 cm nodule visualized in the posterolateral aspect of the left upper lobe seen on axial series 4 image 25 demonstrates no significant change in comparison to the prior 2 studies. 0.9 x 1.5 cm irregular nodule visualized in the anterior lateral aspect of the superior segment of the left lower lobe seen on axial series 4 image 30 demonstrates slight decrease in size in comparison to the prior study with nonvisualization of the previously visualized central cavitation. 0.6 x 0.8 cm nodule in the anteromedial aspect of the superior segment of the left lower lobe seen on axial series 4 image 23 is more defined on today''s study and demonstrates the circumferential contour suggestive of evolution of a focal consolidation. 0.6 x 0.6 cm nodular density visualized in the right upper lobe seen on axial series 4 image 19 demonstrates decrease in size in comparison to the prior study where it had measured 1.2 x 1.6 cm. Pleural-based soft tissue density along the lateral aspect of a cavity in the right upper lobe measuring 2.0 x 1.0 x 1.2 cm demonstrates no significant change in comparison to the prior study. Extensive emphysematous changes visualized in bilateral lung mcconnell. Bronchial wall thickening and bronchial dilation visualized in bilateral lung mcconnell/bronchiectatic changes seen demonstrate no significant change in comparison to the prior study. Focal consolidation visualized along the medial aspect of the right middle lobe is visualized demonstrating no significant change in comparison to the prior studies. No evidence of endoluminal lesions is seen. No evidence of pneumothorax or pleural effusion. THYROID: No thyroid lesions. HEART AND PERICARDIUM: Heart size is normal. No pericardial effusion. VESSELS: Thoracic aorta is not dilated. MEDIASTINUM AND LEIGH: Calcified hilar mediastinal lymph nodes are seen.. Esophagus is unremarkable. No hiatal hernia. UPPER ABDOMEN: No acute pathology. BONES: No suspicious lytic or blastic abnormality. Degenerative bone changes seen. Kyphosis of the thoracic spine but no evidence of compression deformity is visualized. IMPRESSION: Multiple nodules visualized in bilateral lung mcconnell that demonstrate either no change of slight decrease in size in comparison to the prior study, findings most likely represent cavitated lesions inspissated fluid status post due to the bronchiectatic changes. Would recommend follow-up evaluation in 6-12 months. Extensive emphysematous changes visualized in bilateral lung mcconnell. Electronically Signed: Albert Fabian MD at 10:12 EST Tel , Service support , CT/Chest without Contrast
== END ==
PROVIDERS: PCP Family Medicine; Referring Provider Nurse Practitioner Acute Care; Visit Provider Nurse Practitioner Acute Care
DX: J18.9 Pneumonia, unspecified organism (principal)
CPT/HCPCS: 71250

== ENCOUNTER 2021-08-12 13:00 | Outpatient (CLI) | payer MEDICAID, SELFPAY | END 2021-08-12 23:59 | disposition home or self-care (01) | LOC: SL 13:37 | PROVIDERS: PCP Family Medicine; Visit Provider Internal Medicine Critical Care Medicine | DX: J44.9 Chronic obstructive pulmonary disease, unspecified (principal) | CPT/HCPCS: 94762 ==

== ENCOUNTER → 2021-11-25 | Outpatient (CLI) | payer MEDICAID, SELFPAY ==
--- NOTE | 2021-11-27 10:11 | PFT ---
INTRODUCTION: The patient is a 66-year-old female that presents for pulmonary function studies secondary to a diagnosis of COPD. Respiratory therapy reported good patient effort. Bronchodilators were used during testing. INTERPRETATION: Forced expiration spirometry demonstrates the presence of a very severe large airways obstructive ventilatory defect. There was no significant response to aerosolized bronchodilators. Spirograms are of fair quality but do not plateau indicating slow emptying of the lungs. Body plethysmography was performed and revealed an elevated TLC and RV, indicative of underlying hyperinflation and air trapping. Diffusing capacity by single breath CO is reduced at 48% of predicted. When compared to prior pulmonary function studies from August 2018, there has been a 32% reduction in FEV1 along with a 21% reduction in DLCO. IMPRESSION: Irreversible very severe large airways obstructive ventilatory defect with associated hyperinflation, air trapping and symmetric reduction in diffusing capacity. There has been interval worsening in the patient's PFT since August 2018, as noted above.
== END | disposition home or self-care (01) ==
LOC: PSN 11-26 10:35
PROVIDERS: PCP Family Medicine; Visit Provider Nurse Practitioner Acute Care
DX: J44.9 Chronic obstructive pulmonary disease, unspecified (principal)
CPT/HCPCS: 94060; 94726; 94729

== ENCOUNTER 2021-12-04 13:41 | Emergency (ER) | payer MEDICAID, SELFPAY ==
[2021-12-04 13:42] VITALS: BP 134/65; PULSE 80; RESP 14; TEMP 36.5; O2SAT 97; BMI 19.5
--- NOTE | 2021-12-04 14:06 | CT_ITS ---
EXAM: CT ABDOMEN AND PELVIS WITH INTRAVENOUS CONTRAST CLINICAL INDICATION: epigastric pain, n/v -- IV PO Contrast TECHNIQUE: Helically acquired images were obtained of the abdomen and pelvis with intravenous contrast. This CT exam was performed using one or more of the following dose reduction techniques: automated exposure control, adjustment of the mA and/or kV according to patient size, and/or use of iterative reconstruction technique. This report was created using [employer] report generation technology. CONTRAST: Oral and amp;amp; IV Gastrografin and amp;amp; 100mL [id number] COMPARISON: None. FINDINGS: LOWER THORAX: There is scarring in the lung bases. No cardiomegaly. No significant pericardial effusion. ABDOMEN: LIVER: Unremarkable. Homogeneous. No focal mass. GALLBLADDER AND BILE DUCTS: There are surgical clips from a cholecystectomy. No intra- or extrahepatic biliary ductal dilation. PANCREAS: Unremarkable. No focal cystic or solid mass. SPLEEN: There are splenic granulomas. ADRENALS: Unremarkable. No nodules. KIDNEYS AND URETERS: Unremarkable. Normal renal size and position. No hydronephrosis. STOMACH AND BOWEL: Unremarkable. No stomach or bowel distention. No focal inflammatory change. PELVIS: APPENDIX: No evidence of acute appendicitis. BLADDER: Unremarkable. REPRODUCTIVE: Unremarkable as visualized. No mass. ABDOMEN and PELVIS: INTRAPERITONEAL SPACE: Unremarkable. No ascites or other fluid collection. No free air. BONES/JOINTS: Unremarkable. No suspicious lytic or blastic abnormality. SOFT TISSUES: Unremarkable. No discrete abdominal or pelvic wall hernia. VASCULATURE: Unremarkable. Abdominal aorta is non-dilated. LYMPH NODES: Unremarkable. No enlarged lymph nodes. CT/Abdomen/Pelvis WITH Contrast IMPRESSION: No acute findings in the abdomen or pelvis. Electronically Signed: Sunny Dunbar MD at 16:28 EDT ,
--- NOTE | 2021-12-04 14:07 | ED.VIS.GI ---
HPI <Dr. Christiano Avila MD - Last Filed: 12/04/21 15:30> HPI - GI History of Present Illness Chief Complaint: Abd Pain Informant: patient Abdominal Pain/Flank Pain Onset: Weeks (3) Context: Gradual Onset Timing: Continuous Quality: Aching Location: Diffuse (Especially epigastrium and left upper quadrant) Current Severity: Moderate Maximum Severity: Severe Worsened by: Food Relieved by: Nothing Nausea/Vomiting/Emesis GI Symptom: Positive for Nausea and Vomiting (Occasional dry heaves only) Diarrhea/Melena/Hematochezia GI Symptom: Negative for Diarrhea, Melena and Hematochezia Associated Symptoms Associated Symptoms: Negative for Dysuria, Frequency, Hematuria and Urgency Narrative Narrative: Patient was admitted to an outside hospital for a COPD exacerbation about 3 weeks ago and has been having abdominal discomfort, early satiety, poor appetite, globus sensation ever since. She had a routine follow-up for her COPD with her umbrella repairer today, also for the purpose of getting routine screening colonoscopy, and when she discussed all of these symptoms with the PA at the gastroenterology clinic within the last couple weeks, they are also going to do an EGD. That has not been scheduled yet, but she was supposed to have a preop clearance appointment with pulmonary, so they took care of that today 2. They were worried about her GI symptoms, and so referred her to the ED for further testing, which she has not had yet including CT. She has had prior tubal and cholecystectomy remotely, no other abdominal surgeries. She states her COPD is stable and as usual/chronic at this time, she has a history of end-stage COPD. REPLACED BY [facility] <Dr. Christiano Avila MD - Last Filed: 12/04/21 15:30> REPLACED BY [facility] Medical History (Updated 12/04/21 @ 15:[address] Christiano Avila MD) Acute exacerbation of chronic obstructive pulmonary disease (COPD) Anxiety Asthma Bronchitis CAP (community acquired pneumonia) Chronic hypoxemic respiratory failure COPD (chronic obstructive pulmonary disease) Depression Emphysema lung GERD (gastroesophageal reflux disease) History of diabetes mellitus History of essential hypertension Insomnia Kidney stones Osteoporosis Tobacco dependence due to cigarettes Home Medications hydrocodone-acetaminophen 1 ea PO PRN PRN 09/30/17 [History Last Taken 05/20/20 06:00] loratadine 10 mg PO DAILY PRN 09/30/17 [History Last Taken 05/17/20] polyethylene glycol 3350 17 gm PO DAILY PRN 09/30/17 [History Last Taken Unknown] cholecalciferol (vitamin D3) 2,000 unit PO DAILY 11/18/18 [History Last Taken Unknown] hydroxyzine HCl 25 mg PO BID PRN PRN 11/18/18 [History Last Taken Unknown] albuterol sulfate 90 mcg/actuation aerosol inhaler 2 puff INHALATION Q4H PRN #8.5 g 04/17/21 [Rx Last Taken Unknown] fluticasone propionate 50 mcg/actuation nasal spray,suspension 1 spray INTRANASAL BID #15.8 ml 04/17/21 [Rx Last Taken Unknown] albuterol sulfate 2.5 mg INHALATION Q2H PRN PRN #180 vial 06/03/21 [Rx Last Taken Unknown] metoprolol succinate 25 mg tablet,extended release 24 hr 25 mg PO BID 07/15/21 [History Last Taken Unknown] mometasone-formoterol HFA 200 mcg-5 mcg/actuation aerosol inhaler 2 puff INHALATION BID 07/15/21 [History Last Taken Unknown] rosuvastatin 20 mg tablet 20 mg PO DAILY 07/15/21 [History Last Taken Unknown] tiotropium bromide 18 mcg capsule with inhalation device 1 cap INHALATION DAILY #30 inh 09/08/21 [Rx Last Taken Unknown] famotidine 20 mg tablet 20 mg PO BID tab 12/04/21 [History Last Taken Unknown] ipratropium-albuterol [Combivent Respimat] 1 puff INHALATION BID PRN PRN 12/04/21 [History Last Taken Unknown] tizanidine 4 mg capsule 4 mg PO BID PRN 12/04/21 [History Last Taken Unknown] Allergy/AdvReac Type Severity Reaction Status Date / Time aclidinium AdvReac Other Verified 12/04/21 13:03 [From Tudorza Pressair] doxycycline AdvReac Other Verified 12/04/21 13:03 gabapentin AdvReac Other Verified 12/04/21 13:03 ipratropium AdvReac Other Verified 12/04/21 13:03 levofloxacin [From Levaquin] AdvReac Other Verified 12/04/21 13:03 methylprednisolone AdvReac Other Verified 12/04/21 13:03 sertraline [From Zoloft] AdvReac Upset Verified 12/04/21 13:03 Stomach sulfamethoxazole AdvReac Other Verified 12/04/21 13:03 [From Bactrim] trimethoprim [From Bactrim] AdvReac Other Verified 12/04/21 13:03 umeclidinium AdvReac Other Verified 12/04/21 13:03 [From Incruse Ellipta] Family History (Reviewed 09/08/21 @ 13:41 by Odalys Page DERMATOLOGY PROCEDURAL PHYSICIAN, DERMATOLOGY PROCEDURAL PHYSICIAN-C) Grandmother Cancer Lung Brother Diabetes Hypertension Father Hypertension Embolism Sister Hypertension Diabetes Surgical History (Reviewed 09/08/21 @ 13:41 by Odalys Page DERMATOLOGY PROCEDURAL PHYSICIAN, DERMATOLOGY PROCEDURAL PHYSICIAN-C) History of cholecystectomy Social History Smoking Status: Current every day smoker tobacco type: cigarettes Tobacco: How many years used: 41 second hand exposure: Yes alcohol intake: never substance use type: does not use caffeine: Yes Type: coffee what type of physical activity do you participate in: none ROS <Dr. Christiano Avila MD - Last Filed: 12/04/21 15:30> ROS ED Constitutional Constitutional ED: Reports poor appetite; Denies chills or fever(s) Eyes Eyes: Denies change in vision or diplopia ENT ENT ED: Denies rhinorrhea or sore throat Cardiovascular Cardiovascular: Denies chest pain or palpitations Respiratory/Chest Respiratory/Chest: Reports cough, dyspnea on exertion and wheezing Gastrointestinal Gastrointestinal: Reports as per HPI, abdominal pain, dry heaves and nausea; Denies diarrhea, hematemesis, hematochezia, melena or vomiting Genitourinary Genitourinary ED: Denies dysuria or hematuria Musculoskeletal Musculoskeletal: Denies back pain or neck pain Integumentary Denies abscess or rash Neurologic Neurologic: Denies headache(s), paresthesias or weakness Psychiatric Psychiatric: Denies anxiety or suicidal thoughts EXAM <Dr. Christiano Avila MD - Last Filed: 12/04/21 15:30> Physical Exam Const Vital Signs: 12/04/21 13:42 Temperature 97.7 F L Temperature Source Temporal Pulse Rate 80 Respiratory Rate 14 Blood Pressure 134/65 H Blood Pressure Mean 88 Pulse Ox 97 Oxygen Delivery Method Room Air Positive well nourished and well developed General Appearance ED: well developed and NAD HEENT Reports moist mucous membranes normocephalic and atraumatic Eyes PERRL and EOMs intact bilaterally Neck full ROM and supple Resp normal respiratory effort Resp Narrative: And expiratory wheezes diffusely, no rales or rhonchi Effort and Inspection: able to speak in complete sentences Cardio regular rate, regular rhythm and no murmurs GI non-distended GI Narrative: Very tender in the epigastrium with voluntary guarding, less tender suprapubic, no guarding or rebound otherwise. Auscultation: normoactive bowel sounds Palpation: soft Back/Spine no CVA tenderness General Back: other FROM Extremity normal to inspection General Extremety ED: Negative for edema, pulses abnormal or tenderness General Extremity: Negative for edema or pulses abnormal Neuro oriented x3, CN's II-XII intact bilaterally and no sensory deficits noted Sensorium / Orientation: awake and alert Motor Exam: strength 5/5 throughout Skin no rashes or lesions noted and no wounds <Dr. Francoise Dunlap MD - Last Filed: 12/04/21 16:39> Physical Exam Const Vital Signs: 12/04/21 13:42 Temperature 97.7 F L Temperature Source Temporal Pulse Rate 80 Respiratory Rate 14 Blood Pressure 134/65 H Blood Pressure Mean 88 Pulse Ox 97 Oxygen Delivery Method Room Air MDM <Dr. Christiano Avila MD - Last Filed: 12/04/21 15:30> [facility] Narrative Medical decision making narrative: Oral and IV contrast a CT was ordered, in addition to labs with liver enzymes and urinalysis. All the labs are unremarkable/normal including her bilirubin. Differential includes upper GI etiologies, in addition to colonic etiologies and nonemergent intestinal pain as well as other etiologies such as cancers given the history of pulmonary nodules and a long-standing history of smoking. CT results and final disposition checked out to oncoming ED physician; if there are no acute findings dictating the need for admission, I would anticipate outpt follow up with GI as scheduled. Lab Data Attestation: I reviewed the patient's lab results. Labs: Laboratory Results - last 24 hr 12/04/21 12/04/21 12/04/21 13:56 13:56 14:15 WBC 6.4 RBC 4.00 L Hgb 12.4 Hct 37.2 MCV 93.0 MCH 31.0 MCHC 33.3 RDW Std Deviation 41.4 RDW Coeff of Stormy 12.3 Plt Count 404 MPV 9.2 Immature Gran % (Auto) 0.300 Neut % (Auto) 70.9 H Lymph % (Auto) 18.7 L [place] % (Auto) 7.0 Eos % (Auto) 2.6 Baso % (Auto) 0.5 Absolute Neuts (auto) 4.6 Absolute Lymphs (auto) 1.20 Nucleated RBC % 0 Sodium Cancelled Potassium Cancelled Chloride Cancelled Carbon Dioxide Cancelled Anion Gap Cancelled BUN Cancelled Creatinine Cancelled Estim Creat Clear Calc Cancelled Est GFR (MDRD) Af Amer Cancelled Est GFR (MDRD) Non-Af Cancelled BUN/Creatinine Ratio Cancelled Glucose Cancelled Calcium Cancelled Total Bilirubin Cancelled AST Cancelled ALT Cancelled Alkaline Phosphatase Cancelled Total Protein Cancelled Albumin Cancelled Globulin Cancelled Albumin/Globulin Ratio Cancelled Lipase Cancelled Urine Color Yellow Urine Clarity Sl. Cloudy Urine pH 7.0 Ur Specific [place] 1.005 Urine Protein Negative Urine Glucose (UA) Normal Urine Ketones Negative Urine Occult Blood Negative Urine Nitrite Negative Urine Bilirubin Negative Urine Urobilinogen Normal Ur Leukocyte Esterase Negative Urine RBC 0 SEEN Urine WBC 0 SEEN Ur Squamous Epith Cells 0 SEEN Urine Bacteria 0 SEEN Urine Mucus 0 SEEN 12/04/21 14:30 WBC RBC Hgb Hct MCV MCH MCHC RDW Std Deviation RDW Coeff of Stormy Plt Count MPV Immature Gran % (Auto) Neut % (Auto) Lymph % (Auto) [place] % (Auto) Eos % (Auto) Baso % (Auto) Absolute Neuts (auto) Absolute Lymphs (auto) Nucleated RBC % Sodium 133 L Potassium 3.8 Chloride 98 Carbon Dioxide 32.0 Anion Gap 3 L BUN 8 Creatinine 0.54 L Estim Creat Clear Calc 80.64 Est GFR (MDRD) Af Amer 147 Est GFR (MDRD) Non-Af 122 BUN/Creatinine Ratio 14.9 Glucose 79 Calcium 8.8 Total Bilirubin 0.10 L AST 13 L ALT 18 Alkaline Phosphatase 61 Total Protein 6.9 Albumin 2.8 L Globulin 4.1 Albumin/Globulin Ratio 0.7 L Lipase 98 Urine Color Urine Clarity Urine pH Ur Specific [place] Urine Protein Urine Glucose (UA) Urine Ketones Urine Occult Blood Urine Nitrite Urine Bilirubin Urine Urobilinogen Ur Leukocyte Esterase Urine RBC Urine WBC Ur Squamous Epith Cells Urine Bacteria Urine Mucus Radiography Diagnostic Testing: Clinical Impression(s) from Imaging Studies Abdomen/Pelvis CT 12/04/21 14:06 IMPRESSION: No acute findings in the abdomen or pelvis. Electronically Signed: Sunny Dunbar MD at 16:28 EDT , <Dr. Francoise Dunlap MD - Last Filed: 12/04/21 16:39> [facility] Lab Data Labs: Laboratory Results - last 24 hr 12/04/21 12/04/21 12/04/21 13:56 13:56 14:15 WBC 6.4 RBC 4.00 L Hgb 12.4 Hct 37.2 MCV 93.0 MCH 31.0 MCHC 33.3 RDW Std Deviation 41.4 RDW Coeff of Stormy 12.3 Plt Count 404 MPV 9.2 Immature Gran % (Auto) 0.300 Neut % (Auto) 70.9 H Lymph % (Auto) 18.7 L [place] % (Auto) 7.0 Eos % (Auto) 2.6 Baso % (Auto) 0.5 Absolute Neuts (auto) 4.6 Absolute Lymphs (auto) 1.20 Nucleated RBC % 0 Sodium Cancelled Potassium Cancelled Chloride Cancelled Carbon Dioxide Cancelled Anion Gap Cancelled BUN Cancelled Creatinine Cancelled Estim Creat Clear Calc Cancelled Est GFR (MDRD) Af Amer Cancelled Est GFR (MDRD) Non-Af Cancelled BUN/Creatinine Ratio Cancelled Glucose Cancelled Calcium Cancelled Total Bilirubin Cancelled AST Cancelled ALT Cancelled Alkaline Phosphatase Cancelled Total Protein Cancelled Albumin Cancelled Globulin Cancelled Albumin/Globulin Ratio Cancelled Lipase Cancelled Urine Color Yellow Urine Clarity Sl. Cloudy Urine pH 7.0 Ur Specific [place] 1.005 Urine Protein Negative Urine Glucose (UA) Normal Urine Ketones Negative Urine Occult Blood Negative Urine Nitrite Negative Urine Bilirubin Negative Urine Urobilinogen Normal Ur Leukocyte Esterase Negative Urine RBC 0 SEEN Urine WBC 0 SEEN Ur Squamous Epith Cells 0 SEEN Urine Bacteria 0 SEEN Urine Mucus 0 SEEN 12/04/21 14:30 WBC RBC Hgb Hct MCV MCH MCHC RDW Std Deviation RDW Coeff of Stormy Plt Count MPV Immature Gran % (Auto) Neut % (Auto) Lymph % (Auto) [place] % (Auto) Eos % (Auto) Baso % (Auto) Absolute Neuts (auto) Absolute Lymphs (auto) Nucleated RBC % Sodium 133 L Potassium 3.8 Chloride 98 Carbon Dioxide 32.0 Anion Gap 3 L BUN 8 Creatinine 0.54 L Estim Creat Clear Calc 80.64 Est GFR (MDRD) Af Amer 147 Est GFR (MDRD) Non-Af 122 BUN/Creatinine Ratio 14.9 Glucose 79 Calcium 8.8 Total Bilirubin 0.10 L AST 13 L ALT 18 Alkaline Phosphatase 61 Total Protein 6.9 Albumin 2.8 L Globulin 4.1 Albumin/Globulin Ratio 0.7 L Lipase 98 Urine Color Urine Clarity Urine pH Ur Specific [place] Urine Protein Urine Glucose (UA) Urine Ketones Urine Occult Blood Urine Nitrite Urine Bilirubin Urine Urobilinogen Ur Leukocyte Esterase Urine RBC Urine WBC Ur Squamous Epith Cells Urine Bacteria Urine Mucus Radiography Diagnostic Testing: Clinical Impression(s) from Imaging Studies Abdomen/Pelvis CT 12/04/21 14:06 IMPRESSION: No acute findings in the abdomen or pelvis. Electronically Signed: Sunny Dunbar MD at 16:28 EDT , Treatment and Re-Evaluation Narrative: Patient signed out to me pending CT results. CT scan reveals no acute finding in the abdomen or pelvis. Test results discussed with patient and at bedside. They will follow-up for endoscopy that is currently in the works. Return instructions provided. Discharge Plan Triage Chief Complaint: Abd Pain ED Provider: Christiano Avila Dx/Rx/DC Orders Clinical Impression: Acute epigastric pain, COPD (chronic obstructive pulmonary disease) Instructions: ED Abdominal Pain Unkn Cause Fem Prescriptions: No Action albuterol sulfate [Ventolin HFA] 90 mcg/actuation HFA aerosol inhaler 2 puff INHALATION Q4H PRN (Reason: shortness of breath or wheezing) Qty: 8.5 RF: 6 fluticasone propionate [Flonase Allergy Relief] 50 mcg/actuation spray,suspension 1 spray INTRANASAL BID Qty: 15.8 RF: 6 rosuvastatin [Crestor] 20 mg tablet 20 mg PO DAILY RF: 0 metoprolol succinate 25 mg tablet extended release 24 hr 25 mg PO BID RF: 0 Dulera 200-5 mcg/actuation HFA aerosol inhaler 2 puff inhalation BID RF: 0 Spiriva with HandiHaler 18 mcg capsule, w/inhalation device 1 cap inhalation DAILY Qty: 30 RF: 6 famotidine 20 mg tablet 20 mg PO BID RF: 0 tizanidine 4 mg capsule 4 mg PO BID PRN (Reason: MUSCLE SPASMS) RF: 0 polyethylene glycol 3350 17 GM packet 17 gm PO DAILY PRN (Reason: Constipation) RF: 0 hydrocodone-acetaminophen 1 EACH tablet 1 ea PO PRN PRN (Reason: Pain) RF: 0 loratadine 10 MG capsule 10 mg PO DAILY PRN (Reason: Allergies) RF: 0 hydroxyzine HCl 25 MG tablet 25 mg PO BID PRN PRN (Reason: Anxiety) RF: 0 cholecalciferol (vitamin D3) 2,000 UNIT tablet 2,000 unit PO DAILY RF: 0 Combivent Respimat 20-100 mcg/actuation mist 1 puff INHALATION BID PRN PRN (Reason: Shortness Of Breath) RF: 0 albuterol sulfate 2.5 mg /3 mL (0.083 %) solution for nebulization 2.5 mg INHALATION Q2H PRN PRN (Reason: Dyspnea, wheezing) Qty: 180 RF: 6 Primary Care Provider: Krish Martinez Referrals: Kirsh Martinez MD [Primary Care Provider] - 1-2 Weeks Activity Restrictions/Additional Instructions: Follow-up for your endoscopy studies as discussed. Disposition Disposition: Home, Self Care
[2021-12-04] MEDS: Ondansetron 4 MG/2 ML Vial IV (14:16)
[2021-12-04] MEDS: Morphine 4 MG/ML Syringe IV (14:16)
[2021-12-04] MEDS: 0.9% Normal Saline 1,000 ML 1000 ML IV (14:16)
[2021-12-04 14:17] LABS: Absolute Neutrophil Count 4.6 X10^3/uL (2.0-7.7); Basophil# 0.03 X10^3/uL; Basophil% 0.5 % (0-1); Eosinophil# 0.17 X10^3/uL; Eosinophils% 2.6 % (0-5); Hematocrit 37.2 % (37-47); Hemoglobin 12.4 g/dL (12.0-15.0); Lymphocyte % 18.7 % (19-41); Mean Corp Hgb Conc 33.3 g/dL (32-36); Mean Platelet Vol. 9.2 fl (6.2-12.0); Monocyte# 0.45 X10^3/uL; NRBC Flagged by Analyzer 0 % (0-5); Neutrophil # 4.55 X10^3/uL (2.7-7.7); Neutrophil % 70.9 % (47-70); Platelet Count 404 K/mm3 (150-450); RBC Distribution Width CV 12.3 % (11.6-14.6); RBC Distribution Width SD 41.4 fl (35.1-43.9); White Blood Count 6.4 K/mm3 (4.4-11.0)
[2021-12-04 14:22] LABS: Bacteria 0 SEEN /hpf (None Seen); Mucous, Urine 0 SEEN /hpf (<or=2+); Red Blood Cells-Urine 0 SEEN /hpf (0-5); Squamous Epithelial Cells - UA 0 SEEN /hpf (5-10); White Blood Cells 0 SEEN /hpf (0-5)
[2021-12-04 14:23] LABS: Color, Urine Yellow (Yellow); Glucose, Dipstick Normal (Normal); Ketone-Dipstick Negative (Negative); Leukocyte Esterase-Dipstick Negative /ul (Negative); Nitrite-Dipstick Negative (Negative); Occult Blood-Urine Negative /ul (Negative); Protein-Dipstick Negative (Negative); Specific Gravity, Urine 1.005 (1.002-1.030); Urine Bilirubin Dipstick Negative (Negative); Urine Clarity Sl. Cloudy (Clear); Urine Urobilinogen Normal (Normal)
[2021-12-04 14:56] LABS: BUN 8 mg/dL (7-18); Creatinine, Serum 0.54 mg/dL (0.55-1.02); Glucose 79 mg/dL (74-106)
[2021-12-04 14:57] LABS: ALB/GLOB Ratio 0.7 RATIO (0.9-2.4); AST(SGOT) 13 U/L (15-37); Alanine Aminotransfer ALT/SGPT 18 U/L (13-56); Albumin, Serum 2.8 g/dL (3.2-5.0); Alkaline Phosphatase 61 U/L (45-117); Anion Gap 3 (5-15); BUN/Creat Ratio 14.9 RATIO (10-20); Calcium,Total 8.8 mg/dL (8.5-10.1); Chloride 98 mmol/L (98-107); EST Glomerular Filtration Rate 122 mL/min (>60); Est Glom Filt Rate - Afr Amer 147 mL/min (>60); Estimated Creatinine Clearance 80.64 ml/min; Globulin 4.1 g/dL (2.2-4.2); Lipase 98 U/L (73-393); Potassium 3.8 mmol/L (3.5-5.1); Protein, Total 6.9 g/dL (6.4-8.2); Sodium Level 133 mmol/L (136-145)
[2021-12-04 16:53] VITALS: BP 127/65; O2SAT 94
== END 2021-12-04 16:53 | disposition home or self-care (01) ==
PROVIDERS: Emergency Provider Emergency Medicine; PCP Family Medicine; Visit Provider Emergency Medicine
DX: R10.13 Epigastric pain (principal); J43.9 Emphysema, unspecified; F17.210 Nicotine dependence, cigarettes, uncomplicated; Z90.49 Acquired absence of other specified parts of digestive tract
CPT/HCPCS: 74177; 80053; 81001; 83690; 85025; 96361; 96374; 96375; 99283; J7030; Q9967; A4216; J2405

== ENCOUNTER → 2022-01-13 | Outpatient (CLI) | payer MEDICAID, SELFPAY ==
--- NOTE | 2022-01-13 13:17 | CT_ITS ---
STUDY: CT CHEST WITHOUT CONTRAST REASON FOR EXAM: Female, 66 years old. Lung Nodules RADIATION DOSAGE (If Supplied By Facility): CTDIvol = ( 6.04 ) mGy, DLP = ( 222.04 ) mGycm TECHNIQUE: Transaxial imaging was performed without the administration of intravenous contrast material. Multiplanar coronal and sagittal images were reformatted. Individualized dose optimization techniques were used for this CT. COMPARISON: Comparison is made with prior study dated 06/25/2021. FINDINGS: CHEST Possible nodules are once again seen more prominent in the upper lobes. Stable 1.1 cm x 0.8 cm nodule in the left upper lobe as seen on axial image #17. Stable 0.6 cm x 0.9 cm nodule in the posterolateral aspect of the left upper lobe as seen on axial image #25. Stable slightly spiculated nodule in the anterior aspect of the superior segment of the left lower lobe measuring 1.08 cm. Stable 6 mm x 6 mm nodular density in the right upper lobe. Stable bronchiectasis and scarring in the right middle lobe with volume loss. Stable cavitary lesion in the peripheral lateral aspect of the right upper lobe. Hyperinflation. Extensive emphysematous changes. Normal heart and pericardium. Calcified hilar and mediastinal lymphadenopathy. Normal hilar regions. Normal unenhanced pulmonary arteries. Normal aorta arch and descending thoracic aorta. Normal osseous structures. There is no demonstrated abnormality of the visualized upper abdomen. CT/Chest without Contrast IMPRESSION: Essentially stable examination. Electronically Signed: Hammad Middleton MD at 15:08 EDT ,
== END | disposition home or self-care (01) ==
LOC: CT 13:13
PROVIDERS: PCP Family Medicine; Referring Provider Internal Medicine Critical Care Medicine; Visit Provider Internal Medicine Critical Care Medicine
DX: R91.8 Other nonspecific abnormal finding of lung field (principal)
CPT/HCPCS: 71250

== ENCOUNTER 2022-02-16 08:49 | Outpatient (CLI) | payer MEDICAID, SELFPAY ==
[2022-02-13 14:31] LABS: Platelet Count 315 K/mm3 (150-450)
[2022-02-13 14:49] LABS: Partial Thromboplast Time 27.7 Seconds (24.1-36.2); Prothrombin Time (Protime)PT. 12.5 SECONDS (11.7-14.9)
[2022-02-16] VITALS (12 sets, daily range): BP systolic 110–166; BP diastolic 44–60; PULSE 64–98; RESP 16–22; TEMP 36.5; O2SAT 95–99; BMI 19.0
--- NOTE | 2022-02-16 | ASPIGT_PTH ---
PATIENT: LACEY NICOLE LOC: [facility] U#:[id number] AGE/SX: 66/F ROOM: RE02/16/[address]: JOE Garza : 1955 BED: DIS: 02/16/2022 SPEC #: [id number] RECD: 02/16/22 12:33 STATUS: JAMAAL REJuan #: [id number] NIGHAT: 02/16/22 00:[address]: Odalys Page NP DEPT: SURGICAL PATHOLOGY RECD BY: Mane Guillaume ENTERED: 02/16/22 12:33 SP TYPE: ASP RAD OTHR DR: Dr. Krish Martinez MD Tissues: Lung, NOS Procedures: FNA Specimen Adequacy Trichrome (control) Special Stain Group II Special Stain Group I Surgery Specimen Level IV AFB Stain (control) GMS Stain (control) Imprint (control) HEADER OPERATION: CT-guided left lung biopsy PRE-OP DIAGNOSIS: Lung mass TISSUE SUBMITTED: Left lung 20-gauge x5 MICROSCOPIC DIAGNOSIS Left lung, CT-guided core biopsy: Lung parenchymal tissue with extensive fibrosis and necrotizing and non-necrotizing chronic granulomatous inflammation. Negative for malignancy. See comment. INES:chantelle 02/17/2022 COMMENT The specimen is evaluated at the time of biopsy by Dr. Garcia. Immediate Evaluation = Negative for malignant cells. Focal calcification is also noted. Special stains for acid fast bacilli and fungi are negative for organisms; matched controls are appropriate. Trichrome stain with matched control was also used in the evaluation of the specimen. Correlation with clinical, radiologic findings and appropriate follow up are necessary. Case has been reviewed in consultation with Dr. Saldivar who concurs with the above diagnosis. IDC:AM MICROSCOPIC DESCRIPTION Slides are reviewed. GROSS DESCRIPTION Received in fixative is one container labeled with the patient's name and designated left lung biopsy. The specimen consists of multiple irregular fragments of smith soft tissue that in aggregate measure 1 x 0.1 x <0.1 cm. The specimen is totally submitted in one cassette. Two touch imprints are prepared at the time of core biopsy. / INES:chantelle 02/16/2022 TC:3 CPT: 00189, 46088, 84065 x2, 00285
--- NOTE | 2022-02-16 10:10 | CT_ITS ---
PROCEDURE: CT GUIDED CORE NEEDLE BIOPSY OF A left upper lobe LUNG LESION INDICATION: Female, 66 years old. Pulmonary nodules. PHYSICIAN: Dr. LAI Arellano CONSENT: Written informed consent was obtained having explained the risks, benefits and alternatives in detail with the patient who accepted the risks and agreed to proceed. Laboratory review and clinical assessment was performed. CONSCIOUS SEDATION PROTOCOL: The Drugs used were: 1 mg Versed, IV., and 25 mcg Fentanyl, IV. The sedation time was: 26 minutes. Conscious sedation was started at 10:11 AM and terminated at 10:37 AM. The conscious sedation protocol was independently monitored. RADIATION DOSAGE (If Supplied By Facility): CTDIvol = ( 12 ) mGy, DLP = ( 3.82 ) mGycm Individualized dose optimization techniques were used for this CT. TECHNIQUE: The patient was placed in the prone position. A noncontrast CT was performed to localize the lesion in the left upper . The skin surface was prepped and draped in a sterile fashion. 1% lidocaine was used for local anesthesia. Using CT guidance, a 20-gauge coaxial biopsy device was advanced to the periphery of the lesion. A total of 5 core specimens were obtained. The specimens were placed in a formalin solution. A post procedure CT demonstrated no adverse sequelae or pneumothorax. The patient tolerated the procedure well without adverse event. A negative biopsy does not exclude malignancy. Further imaging or clinical followup based on patient condition and degree of clinical suspicion for malignancy. Suggest rebiopsy, if biopsy results do not match with clinical scenario. CT/Biopsy/Inj or Needle Placement IMPRESSION: 1. CT directed core needle biopsy of the left upper lobe pulmonary nodule using CT image guidance with image documentation as described. Pathology results are pending. 2. Conscious Sedation protocol utilized with independent monitoring. Electronically Signed: Hammad Middleton MD at 11:17 EDT ,
[2022-02-16] MEDS: Midazolam 2 MG/2 ML Syringe IV (10:11)
[2022-02-16] MEDS: 0.9% Saline Lock 10 ML Syringe IV (10:11)
[2022-02-16] MEDS: Lidocaine 2% (10 ml mdv) 10 ML Vial INFILT (10:11)
[2022-02-16] MEDS: fentaNYL 100 MCG/2 ML Ampul IV (10:13)
--- NOTE | 2022-02-16 10:15 | RAD_ITS ---
STUDY: X-RAY CHEST REASON FOR EXAM: Female, 66 years old. Pneumothorax -- Immediately post lung biopsy TECHNIQUE: AP inspiration and expiration views. COMPARISON: Comparison is made with prior study 05/19/2021. FINDINGS: The patient is status post left upper lobe biopsy. No evidence of pneumothorax. RAD/Chest Insp/Exp 2 View IMPRESSION: No evidence of pneumothorax and the immediate post left upper lobe lung biopsy. Electronically Signed: Hammad Middleton MD at 11:13 EDT ,
--- NOTE | 2022-02-16 12:15 | RAD_ITS ---
STUDY: X-RAY CHEST REASON FOR EXAM: Female, 66 years old. Pneumothorax -- 2 hours post lung biopsy TECHNIQUE: AP inspiration and expiration views. COMPARISON: Comparison is made with prior study dated 02/16/2022. FINDINGS: The patient is status post left lung biopsy. Questionable tiny left apical pneumothorax. The patient is asymptomatic. RAD/Chest Insp/Exp 2 View IMPRESSION: Questionable tiny left apical pneumothorax. Electronically Signed: Hammad Middleton MD at 9:13 EDT ,
== END 2022-02-16 23:59 | disposition home or self-care (01) ==
LOC: CT 08:51
PROVIDERS: PCP Family Medicine; Referring Provider Nurse Practitioner Acute Care; Visit Provider Nurse Practitioner Acute Care
DX: R91.8 Other nonspecific abnormal finding of lung field (principal); J43.9 Emphysema, unspecified; F17.210 Nicotine dependence, cigarettes, uncomplicated; Z80.2 Family history of malignant neoplasm of other respiratory and intrathoracic organs
CPT/HCPCS: 32408; 71046; 77012; 85049; 85610; 85730; 88172; 88305; 88312; 88313; 99156; J7050; A4216

== ENCOUNTER → 2022-06-10 | Outpatient (CLI) | payer MEDICAID, SELFPAY ==
--- NOTE | 2022-06-10 10:30 | PET_ITS ---
EXAMINATION: FDG PET-CT INDICATIONS: A 66-year-old female with a history of pulmonary nodularity. COMPARISON EXAMINATION: CT of the chest report dated 01/13/22, prior FDG PET CT study dated 10/01/20. INDEX LESION SIZE SUV INTERPRETATION PERSISTENT and NEW: Bilateral hemithorax pulmonary parenchyma 11.5 mm 6.7 max comp to 1.7, 10/01/20 Fulfills quantitative criteria for viable neoplasm, histopathologic analysis recommended. NEW: Mediastinum and bilateral thoracic perihilum. 28.3 mm largest 3.2 max Fulfills borderline quantitative criteria for viable neoplasm. TECHNIQUE: Following the intravenous administration of 14.49 mCi of F-18 deoxyglucose via the right hand, multiplanar image acquisitions of the head, neck, chest, abdomen and pelvis to level of mid-thigh, lower extremities obtained at one hour post radiopharmaceutical administration contemporaneously interpreted with the current CT of the head, neck, chest, abdomen and pelvis to level of mid-thigh, lower extremities dated 06/10/[address] of the chest report dated 01/13/22 and prior FDG PET CT study dated 10/01/20 reveal: SERUM GLUCOSE LEVEL: 105 mg/dl. HEIGHT: 67 inches. WEIGHT: 106 lbs. FINDINGS: Head/Neck: There is no evidence of abnormal increased glucose metabolism in the pharyngeal mucosal space, parapharyngeal space, bilateral-lateral and anterior neck, hypopharynx and distribution of the laryngeal structures. The visualized portion of the cerebral cortical-subcortical structures demonstrate symmetric and preserved glucose metabolism. CHEST: On the current examination there are multiple hypermetabolic foci noted in the right upper and lower lung and left upper lung. The calculated maximum standard uptake value is 6.7 compared to 1.7 on previous FDG PET CT study dated 10/01/20. The maximum axial diameter of the largest most conspicuous metabolic, morphologic abnormality is 11.5 mm. Facilitated uptake is noted in the lower paratracheal lymph nodes, bilateral thoracic perihilum, and subcarinal lymph node basins. The calculated maximum standard uptake value is 3.2. The maximum axial diameter of the largest metabolic, morphologic abnormality is 28.[address] findings are as follows. There is atherosclerotic calcification defined in the thoracic aorta without evidence of dilatation-aneurysm formation. Coronary arterial calcification is observed. Additional calcified and noncalcified mediastinal and bilateral axillary soft tissue densities are nonglucose avid. Apparent air space disease defined in the right mid anterior lung zone demonstrates quantitatively significant increased FDG uptake. The calculated maximum standard uptake value is 1.4. Abdomen/Pelvis: Normal physiologic distribution of the radiopharmaceutical is apparent in the hepatic (2.5) and splenic parenchyma, both renal units, bladder and visualized intestinal tract. Diffuse radiopharmaceutical concentration is noted in all four quadrants of the abdomen and pelvis. Pertinent abdomen and pelvis CT findings are as follows. Calcified granuloma formation is defined in the hepatic and splenic parenchyma. The gallbladder is surgically absent. Calcifications are defined in both renal units. There is atherosclerotic calcification defined in the abdominal aorta without evidence of dilatation-aneurysm formation. Pelvic arterial calcification is observed. Calcification is encountered in the bilateral adnexal regions without evidence of increased tracer uptake. Right and left inguinal soft tissue densities are nonglucose avid. Skeletal: Degenerative changes are noted in the cervical, thoracic and lumbar spine. There is no visualized sclerotic-lytic changes manifest on review of the appendicular-axial skeletal structures. PET/PET/CT Tumor Base -Thigh Init IMPRESSION: 1. The multifocal increase in radiopharmaceutical concentration defined in the bilateral hemithorax pulmonary parenchyma fulfill quantitative criteria for viable neoplasm with single point technique. Histopathologic investigation is recommended. 2. Facilitated radiopharmaceutical concentration noted in the mediastinum and bilateral thoracic perihilum fulfills borderline quantitative criteria for viable neoplasm. (DennisStsandy et al, Journal of Clinical Oncology 16:2142, 1998) 3. Overall, compared to the prior FDG PET CT study dated 10/01/20, there is potential interim development of both pulmonary parenchymal and mediastinal viable neoplastic disease. Electronic Signature Diego John D.O. Accurate Quantification of SUVs for this report are calculated using the exclusive [employer]. ([place]. Patent No. [phone] 983 B2 [phone] [place] patent [phone]). Standardization and correction of the FDG SUV metric via [employer] technology allow for vendor non-specific objective quantitative examination comparison and optimization of the sensitivity and specificity of the FDG PET-CT examination. Electronically Signed: Diego John, at 13:10 EST ,
== END | disposition home or self-care (01) ==
LOC: ONC 10:09
PROVIDERS: PCP Family Medicine; Referring Provider Internal Medicine Critical Care Medicine; Visit Provider Internal Medicine Critical Care Medicine
DX: R91.8 Other nonspecific abnormal finding of lung field (principal)
CPT/HCPCS: 78815; A9552

== ENCOUNTER → 2022-06-25 | Outpatient (CLI) | payer MEDICAID, SELFPAY ==
[2022-06-25 12:10] VITALS: PULSE 83; PULSE 84; PULSE 88; PULSE 89; PULSE 90; PULSE 91; O2SAT 88; O2SAT 90; O2SAT 91; O2SAT 92; O2SAT 93; O2SAT 96; O2SAT 97; O2SAT 98
--- NOTE | 2022-06-25 12:13 | CPS ---
Patient has a concentrator at home that she thinks is supplied by [employer]. She currently only wears O2 at night. She stated that she does monitor her SpO2 and has worn her oxygen during the day when she has been short of breath and she has seen her SpO2 be 85%. Started testing on room air, at the 4th minute of testing SpO2 88%, stopped patient and placed 2 lpm continuous O2, SpO2 97%. SpO2 remained above 96% on 2 lpm O2 during the rest of testing. Explained to patient the need for O2 upon ambulation. Faxed results to Dr. Owen's office.
--- NOTE | 2022-06-26 08:50 | PCM.PSN.6M ---
PSN 6 Minute Walk Test 6 Minute Walk Test 6 Minute Walk Test: 6 Minute Walk Test PSN:6-Minute Walk Test Start: 06/25/22 12:10 Freq: Status: Active Protocol: RESP.6MINW Document 06/25/22 12:10 FREYA (Rec: 06/25/22 12:17 FREYA [id number]) 6 Minute Walk Test Date Performed 06/25/22 Time Performed 12:00 Height 5 ft 2 in Weight: 103 lb Weight in Pounds 103.[address]: Wesly Owen Assistive device used: None Pre-test Oxygen Delivery Method Room Air Pulse Ox (%) 92 Pulse Rate (60-100 beats/min) 83 Dyspnea Agustin Scale (0-10) 0.5 Exertion Agustin Scale (6-20) 6 1st minute Oxygen Delivery Method Room Air Pulse Ox (%) 93 Pulse Rate (60-100 beats/min) 89 2nd minute Oxygen Delivery Method Room Air Pulse Ox (%) 91 Pulse Rate (60-100 beats/min) 91 3rd minute Oxygen Delivery Method Room Air Pulse Ox (%) 90 Pulse Rate (60-100 beats/min) 91 4th minute Oxygen Delivery Method Room Air Pulse Ox (%) 88 Pulse Rate (60-100 beats/min) 91 Dyspnea Agustin Scale (0-10) 4 5th minute Oxygen Flow Rate (L/min) (L/min) 2 Oxygen Delivery Method Nasal Cannula Pulse Ox (%) 98 Pulse Rate (60-100 beats/min) 88 6th minute Oxygen Flow Rate (L/min) (L/min) 2 Oxygen Delivery Method Nasal Cannula Pulse Ox (%) 96 Pulse Rate (60-100 beats/min) 90 Dyspnea Agustin Scale (0-10) 3 Exertion Agustin Scale (6-20) 13 Post-test Oxygen Flow Rate (L/min) (L/min) 2 Oxygen Delivery Method Nasal Cannula Pulse Ox (%) 97 Pulse Rate (60-100 beats/min) 84 Full Laps Walked 14 Partial Lap, Number of Tiles Walked 10 Total Distance Walked (ft) 836 06/25/22 12:13 Cardiopulmonary Services by Jade Harris Patient has a concentrator at home that she thinks is supplied by [employer] She currently only wears O2 at night. She stated that she does monitor her SpO2 and has worn her oxygen during the day when she has been short of breath and she has seen her SpO2 be 85%. Started testing on room air, at the 4th minute of testing SpO2 88%, stopped patient and placed 2 lpm continuous O2, SpO2 97%. SpO2 remained above 96% on 2 lpm O2 during the rest of testing. Explained to patient the need for O2 upon ambulation. Faxed results to Dr. Owen's office. Initialized on 06/25/22 12:13 - END OF NOTE Interpretation Interpretation: The patient ambulated 836 feet over the course of 6 minutes beginning on room air without assistive devices. Pretesting oxygen saturation was noted to be 92% on room air. With ambulation, the gema oxygen saturation was 88%. 2 L/min of supplemental oxygen was applied, and the patient was able to complete the remainder of the test while maintaining appropriate oxygen saturations. Recommendations Recommendations: 2 L/min of supplemental oxygen should be utilized with exertion.
== END | disposition home or self-care (01) ==
LOC: PSN 11:41
PROVIDERS: PCP Family Medicine; Referring Provider Internal Medicine Critical Care Medicine; Visit Provider Internal Medicine Critical Care Medicine
DX: J44.9 Chronic obstructive pulmonary disease, unspecified (principal)
CPT/HCPCS: 94618

== ENCOUNTER → 2022-09-09 | Outpatient (CLI) | payer MEDICARE, SELFPAY ==
--- NOTE | 2022-09-09 14:01 | CT_ITS ---
INDICATION: Fever and cough, shortness of breath EXAMINATION: CT CHEST WITH CONTRAST - CT Chest W/ Contrast Injection TECHNIQUE: Helically acquired images were obtained of the chest following IV contrast. A radiation dose optimization technique was used for this scan. IV Contrast dosage and agent: 100 mL Isovue-370 contrast 01/13/2022 COMPARISON: None. FINDINGS: LUNGS, PLEURA AND LARGE AIRWAYS: Lung windows again show severe underlying emphysema with bleb formation throughout both lung mcconnell, stable noncalcified suspicious nodules scattered throughout both upper lobes unchanged from the previous study. Table nonspecific pleural thickening in both lower lung mcconnell. Evidence of chronic bronchitis without an organized infiltrate or effusion. Stable right middle lobe atelectasis. THYROID: No thyroid lesions. HEART AND PERICARDIUM: Heart size is normal. No pericardial effusion. Punctate coronary artery calcifications noted. VESSELS: Thoracic aorta is not dilated. No aortic dissection. No obvious central pulmonary embolism although this study was not performed with the pulmonary embolism protocol. MEDIASTINUM AND LEIGH: No suspicious mediastinal or hilar adenopathy. Esophagus is unremarkable. No hiatal hernia. UPPER ABDOMEN: No acute pathology. BONES: Bony structures show degenerative change with an exaggerated kyphotic curvature in the thoracic spine CT/Chest WITH Contrast IMPRESSION: Significant underlying emphysema with persistent noncalcified suspicious nodules in both upper lung mcconnell and nonspecific pleural thickening in both lower lung mcconnell. Chronic bronchitis also noted. Stable exam since the previous study. Calcified coronary vessels Stable right middle lobe atelectasis No organized infiltrate or effusion Degenerative bony changes Electronically Signed: Bryson Daniels MD at 14:36 EDT ,
[2022-09-09 14:25] LABS: CREATININE FINGERSTICK < 0.9 mg/dL (0.55-1.02); EGFR FINGERSTICK > 60.0000 mL/min (>60)
== END | disposition home or self-care (01) ==
PROVIDERS: PCP Family Medicine; Visit Provider Family Medicine
DX: R91.8 Other nonspecific abnormal finding of lung field (principal); R59.0 Localized enlarged lymph nodes
CPT/HCPCS: 71260; Q9967

== ENCOUNTER → 2022-11-17 | Outpatient (CLI) | payer MEDICARE, MEDICAID, SELFPAY ==
[2022-11-17 13:45] VITALS: PULSE 85; PULSE 87; PULSE 90; PULSE 92; PULSE 97; PULSE 99; O2SAT 90; O2SAT 91; O2SAT 92; O2SAT 93
--- NOTE | 2022-11-18 05:37 | WT_ITS ---
PSN 6 Minute Walk Test 6 Minute Walk Test 6 Minute Walk Test: 6 Minute Walk Test PSN:6-Minute Walk Test Start: 11/17/22 13:53 Freq: Status: Active Protocol: RESP.6MINW Document 11/17/22 13:45 [facility] (Rec: 11/17/22 13:55 [facility] [id number]) 6 Minute Walk Test Date Performed 11/17/22 Time Performed 13:45 Height 5 ft 1 in Weight: 47.174 kg Weight in Pounds 104.[address]: Dr Owen Assistive device used: None Pre-test Oxygen Delivery Method Room Air Pulse Ox (%) 93 Pulse Rate (60-100 beats/min) 87 Dyspnea Agustin Scale (0-10) 1 Exertion Agustin Scale (6-20) 6 1st minute Oxygen Delivery Method Room Air Pulse Ox (%) 93 Pulse Rate (60-100 beats/min) 90 2nd minute Oxygen Delivery Method Room Air Pulse Rate (60-100 beats/min) 92 Dyspnea Agustin Scale (0-10) 90 3rd minute Oxygen Delivery Method Room Air Pulse Ox (%) 90 Pulse Rate (60-100 beats/min) 90 4th minute Oxygen Delivery Method Room Air Pulse Ox (%) 91 Pulse Rate (60-100 beats/min) 92 5th minute Oxygen Delivery Method Room Air Pulse Ox (%) 91 Pulse Rate (60-100 beats/min) 97 6th minute Oxygen Delivery Method Room Air Pulse Ox (%) 92 Pulse Rate (60-100 beats/min) 99 Dyspnea Agustin Scale (0-10) 2 Exertion Agustin Scale (6-20) 13 Post-test Oxygen Delivery Method Room Air Pulse Ox (%) 93 Pulse Rate (60-100 beats/min) 85 Full Laps Walked 14 Partial Lap, Number of Tiles Walked 16 Total Distance Walked (ft) 842 Interpretation Interpretation: The patient was noted to have a lower baseline saturation of 93% on room air at rest and did desaturate as low as 90% with ambulation. No significant tachycardia was noted. In total, the patient was able to travel 842 feet over the course of 6 minutes on room air with no assistive devices or breaks. These findings are consistent with with a respiratory limitation exercise tolerance. Recommendations Recommendations: No supplemental oxygen is indicated at this time. However, patient will need to be followed closely given level of desaturation
== END | disposition home or self-care (01) ==
LOC: PSN 13:33
PROVIDERS: PCP Family Medicine; Referring Provider Internal Medicine Critical Care Medicine; Visit Provider Internal Medicine Critical Care Medicine
DX: J44.9 Chronic obstructive pulmonary disease, unspecified (principal)
CPT/HCPCS: 94618

== ENCOUNTER → 2023-03-09 | Outpatient (CLI) | payer MEDICARE, MEDICAID, SELFPAY ==
--- NOTE | 2023-03-09 12:47 | CT_ITS ---
STUDY: CT CHEST WITHOUT CONTRAST REASON FOR EXAM: Female, 67 years old. B/L Lung Nodules RADIATION DOSAGE (If Supplied By Facility): CTDIvol = ( 6.04 ) mGy, DLP = ( 199.37 ) mGycm TECHNIQUE: Transaxial imaging was performed without the administration of intravenous contrast material. Multiplanar coronal and sagittal images were reformatted. Individualized dose optimization techniques were used for this CT. COMPARISON: Comparison is made with prior study of September 09, 2022. FINDINGS: CHEST Hyperinflation. Diffuse emphysematous changes worse in the upper lobes. There are stable multiple nodules in the throughout both lungs more prominent on the left side. Stable scarring in the right upper lobe. Stable pleural scarring in the lung bases. Stable scarring and volume loss in the right middle lobe with bronchiectasis. There is no demonstrated pleural abnormality. There are calcifications of the coronary arteries. Normal mediastinum. Normal hilar regions. Normal unenhanced pulmonary arteries. There is atherosclerotic calcification of the aortic arch with tortuosity and elongation of the aortic arch and descending thoracic aorta. There are multi-level degenerative changes of the thoracic spine. Calcified splenic granulomas. CT/Chest without Contrast IMPRESSION: Stable examination with multiple nodules in both lungs more prominent on the left side. Electronically Signed: Hammad Middleton MD at 15:16 EDT ,
== END | disposition home or self-care (01) ==
LOC: CT 12:46
PROVIDERS: PCP Family Medicine; Referring Provider Internal Medicine Critical Care Medicine; Visit Provider Internal Medicine Critical Care Medicine
DX: R91.8 Other nonspecific abnormal finding of lung field (principal)
CPT/HCPCS: 71250

== ENCOUNTER 2023-07-08 14:16 | Inpatient (IN) | payer MEDICARE, SELFPAY ==
[2023-07-08 14:17] VITALS: BP 115/56; PULSE 80; RESP 16; TEMP 36.4; O2SAT 93; BMI 23.2
--- NOTE | 2023-07-08 14:30 | RAD_ITS ---
STUDY: X-RAY CHEST REASON FOR EXAM: Female, 67 years old. SOB TECHNIQUE: Single AP portable view of the chest. COMPARISON: Comparison is made with prior examination of February 16, 2022. FINDINGS: There is hyperinflation of the lungs consistent with chronic obstructive lung disease (COPD). Stable increased markings in the right midlung suggestive of scarring. Stable linear density in the left lower lobe. There is no demonstrated pleural abnormality. Normal size heart. Normal mediastinum and krishna. Normal visualized pulmonary arteries. There is atherosclerotic calcification of the aortic arch with tortuosity. There are diffuse degenerative changes of the visualized thoracic spine. Normal visualized ribs, clavicles, and shoulders. There is no demonstrated abnormality of the visualized soft tissue structures of the upper abdomen. RAD/Chest 1 View (Portable) IMPRESSION: Stable examination. Electronically Signed: Hammad Middleton MD at 14:42 EST ,
[2023-07-08 15:31] LABS: Absolute Lymphocyte Count 0.69 X10^3/uL (0.83-4.51); Absolute Neutrophil Count 3.2 X10^3/uL (2.0-7.7); Basophil# 0.01 X10^3/uL; Basophil% 0.2 % (0-1); Eosinophil# 0.01 X10^3/uL; Eosinophils% 0.2 % (0-5); Hematocrit 40.4 % (37-47); Hemoglobin 13.4 g/dL (12.0-15.0); Lymphocyte # 0.69 X10^3/ul (0.83-4.51); Lymphocyte % 15.2 % (19-41); Mean Corp Hgb Conc 33.2 g/dL (32-36); Mean Corpuscular Hgb 30.9 pg (27.0-32.0); Mean Corpuscular Volume 93.3 fL (81-99); Mean Platelet Vol. 9.2 fl (6.2-12.0); Monocyte% 13.2 % (0-10); NRBC Flagged by Analyzer 0 % (0-5); Neutrophil # 3.22 X10^3/uL (2.7-7.7); Neutrophil % 70.8 % (47-70); Platelet Count 184 K/mm3 (150-450); RBC Distribution Width CV 11.9 % (11.6-14.6); RBC Distribution Width SD 41.3 fl (35.1-43.9); Red Blood Count 4.33 M/mm3 (4.2-5.4); White Blood Count 4.6 K/mm3 (4.4-11.0)
[2023-07-08 15:43] LABS: Anion Gap 7 (5-15); BUN 9 mg/dL (7-18); BUN/Creat Ratio 15.1 RATIO (10-20); Calcium,Total 8.2 mg/dL (8.5-10.1); Chloride 95 mmol/L (98-107); EST Glomerular Filtration Rate 107 mL/min (>60); Est Glom Filt Rate - Afr Amer 129 mL/min (>60); Glucose 79 mg/dL (74-106); Potassium 3.6 mmol/L (3.5-5.1); Sodium Level 130 mmol/L (136-145)
[2023-07-08] MEDS: Albuterol 2.5 MG/3 ML VIAL.NEB. INHALATION (15:53)
[2023-07-08] MEDS: Ipratropium/Albuterol Sulfate 3 ML AMPUL.NEB INHALATION ×2 (15:53→23:40)
[2023-07-08 15:56] VITALS: PULSE 77; RESP 18
[2023-07-08] MEDS: predniSONE 20 MG Tablet 60 MG PO (15:56)
[2023-07-08 16:17] VITALS: RESP 16
[2023-07-08 16:26] VITALS: O2SAT 92
--- NOTE | 2023-07-08 17:14 | PCM.HP.STD ---
HPI - General General Date of Admission: 07/08/23 Date of Service: 07/08/23 Chief Complaint: Cough, dyspnea, hypoxia at home. HPI Narrative The patient is a 67 y/o F w/ PMHx: GERD, COPD/Asthma with allergic rhinitis with chronic hypoxic respiratory failure (2L NC q HS only), Anxiety and Depression, GERD, Diabetes mellitus type II, HTN, HLD, Tobacco use, Known Mediastinal Lymphadenopathy following with Pulmonary Medicine with ongoing outpatient continued CT surveillance (order noted for 08/27/2023) with most recent visit with pulmonary noted 04/23/2023 who presents to the [facility] ED on 07/08/23 with history of progressively worsening fatigue, malaise, but the aches, rhinorrhea, nausea without emesis and bilateral frontal throbbing headache in addition to nonproductive cough with occasional wheezing prompting her to use oxygen throughout the day as she normally uses during the HS only with decrease to 87-88% even on supplementation prompting eventual ED evaluation. She denies any associated fevers or chills. She does have grandchildren who are around but no one's been overtly ill but they have had occasional runny noses. Workup in the ED included T97.5, heart rate 80, BP 115/56, respiratory rate 16, 93% room air-->decreases to 79%, CBC with WBC 4.6, human 13.4, platelet 184 with lymphopenia, BMP with sodium 130, chloride 95, calcium 8.2 otherwise not marked appearing, chest x-ray with chronic hyperinflation and stable increased markings in the right midlung suggestive of scarring as well as stable linear density in the left lower lobe, COVID/flu/RSV PCR with noted positive SARS COVID testing. In the ED patient ministered albuterol, DuoNeb therapy as well as prednisone 60 mg p.o. x 1. [facility] Medical History Anxiety and depression Asthma Chronic hypoxemic respiratory failure COPD (chronic obstructive pulmonary disease) Emphysema lung GERD (gastroesophageal reflux disease) History of diabetes mellitus History of essential hypertension Insomnia Kidney stones Mediastinal lymphadenopathy Osteoporosis Tobacco dependence due to cigarettes Home Medications hydrocodone-acetaminophen 5-325mg 5mg-325mg 1 ea PO PRN PRN Pain 09/30/17 [History Last Taken 02/16/22 06:00] polyethylene glycol 3350 17 gram oral powder packet 17 gm PO DAILY PRN Constipation 09/30/17 [History Last Taken 02/15/22] cholecalciferol (vitamin D3) 50 mcg (2,000 unit) tablet 2,000 unit PO DAILY supplement 11/18/18 [History Last Taken 02/15/22] hydroxyzine HCl 25 mg tablet 25 mg PO BID PRN PRN Anxiety 11/18/18 [History Last Taken 02/15/22 22:00] famotidine 20 mg tablet 20 mg PO BID 12/04/21 [History Last Taken 02/15/22] tizanidine 4 mg capsule 4 mg PO BID PRN MUSCLE SPASMS 12/04/21 [History Last Taken 02/15/22 22:00] metoprolol succinate 25 mg tablet,extended release 24 hr 25 mg PO DAILY 02/05/22 [History Last Taken 02/16/22] albuterol sulfate 2.5 mg/3 mL (0.083 %) solution for nebulization 2.5 mg (3 mL) inhalation Q2H PRN PRN Dyspnea, wheezing #180 vials 06/18/22 [Rx Last Taken Unknown] albuterol sulfate 90 mcg/actuation aerosol inhaler (Ventolin HFA) 2 puff inhalation Q4H PRN shortness of breath or wheezing #8.5 grams 06/18/22 [Rx Last Taken Unknown] loratadine 10 mg capsule 10 mg PO DAILY PRN Allergies #90 caps 06/18/22 [Rx Last Taken Unknown] amoxicillin 875 mg-potassium clavulanate 125 mg tablet 1 tab PO BID #20 tabs 04/23/23 [Rx Last Taken Unknown] fluticasone propionate 50 mcg/actuation nasal spray,suspension (Flonase Allergy Relief) 1 spray intranasal BID #15.8 mL 04/23/23 [Rx Last Taken Unknown] guaifenesin 1,200 mg tablet, extended release 12 hr 1,200 mg PO Q12H #60 tabs 04/23/23 [Rx Last Taken Unknown] ipratropium 20 mcg-albuterol 100 mcg/actuation mist for inhalation (Combivent Respimat) 1 puff inhalation Q6H #4 grams 04/23/23 [Rx Last Taken Unknown] prednisone 10 mg tablet 10 mg PO QDAY #30 tabs 04/23/23 [Rx Last Taken Unknown] mometasone-formoterol HFA 200 mcg-5 mcg/actuation aerosol inhaler (Dulera) 2 puff inhalation BID #13 grams 06/14/23 [Rx Last Taken Unknown] Allergy/AdvReac Type Severity Reaction Status Date / Time budesonide AdvReac Severe Shortness Verified 07/08/23 14:19 [From Breztri Aerosphere] of breath formoterol AdvReac Severe Shortness Verified 07/08/23 14:19 [From Breztri Aerosphere] of breath glycopyrrolate AdvReac Severe Shortness Verified 07/08/23 14:19 [From Breztri Aerosphere] of breath aclidinium AdvReac Other Verified 07/08/23 14:19 [From Tudorza Pressair] doxycycline AdvReac Other Verified 07/08/23 14:19 gabapentin AdvReac Other Verified 07/08/23 14:19 ipratropium AdvReac Other Verified 07/08/23 14:19 levofloxacin [From Levaquin] AdvReac Other Verified 07/08/23 14:19 methylprednisolone AdvReac Other Verified 07/08/23 14:19 sertraline [From Zoloft] AdvReac Upset Verified 07/08/23 14:19 Stomach sulfamethoxazole AdvReac Other Verified 07/08/23 14:19 [From Bactrim] trimethoprim [From Bactrim] AdvReac Other Verified 07/08/23 14:19 umeclidinium AdvReac Other Verified 07/08/23 14:19 [From Incruse Ellipta] Family History Grandmother Cancer Lung Brother Diabetes Hypertension Father Hypertension Embolism Sister Hypertension Diabetes Surgical History (Updated 07/08/23 @ 17:[address] Holly Moses MD) History of bladder suspension procedure History of cholecystectomy History of tubal ligation Social History (Updated 07/08/23 @ 17:[address] Holly Moses MD) household members: spouse and family Smoking Status: Current every day smoker tobacco type: cigarettes Smoking packs per day: 1 Smoking cigarettes per day: 20.0 Years smoked: 48 Smoking pack-years: 48.00 Tobacco: How many years used: 47 second hand exposure: Yes alcohol intake: never substance use type: does not use caffeine: Yes Type: coffee what type of physical activity do you participate in: none ROS ROS Narrative Admission Review of Systems: CONSTITUTIONAL: No weight loss, fever, chills, + weakness or fatigue. HEENT: + Bilateral frontal headache, rhinorrhea, congestion. Eyes: No visual loss, blurred vision, double vision or yellow sclerae. Ears, Nose, Throat: No hearing loss, sneezing. SKIN: No rash or itching, lesions, wounds. CARDIOVASCULAR: No chest pain, chest pressure or chest discomfort, palpitations, edema, orthopnea, syncopal events. RESPIRATORY: + Dyspnea with nonproductive cough, occasional wheezing. No hemoptysis. GASTROINTESTINAL: + Anorexia, nausea without emesis. No diarrhea, abdominal pain, melena, BRBPR. GENITOURINARY: No dysuria, frequency, urgency or retention. NEUROLOGICAL:+ Headache. Dizziness, syncope, paralysis, ataxia, numbness or tingling in the extremities, focal weakness, change in bowel or bladder control, seizure. MUSCULOSKELETAL: + muscle, back pain, joint pain or stiffness. HEMATOLOGIC: No anemia, bleeding or bruising. LYMPHATICS: No enlarged nodes. No history of splenectomy. PSYCHIATRIC: + History of anxiety and depression. ENDOCRINOLOGIC: No reports of sweating, cold or heat intolerance. No polyuria or polydipsia. ALLERGIES: + Hx of asthma with allergic rhinitis. Vital Signs Vital Signs Vital Signs: 07/08/23 14:17 07/08/23 15:56 07/08/23 15:42 Temperature 97.5 F L Temperature Source Temporal Pulse Rate 80 77 Respiratory Rate 16 18 Respiratory Effort Normal Non-Labored Respiratory Depth Normal Respiratory Pattern Normal Normal Blood Pressure 115/56 L Blood Pressure Mean 75 Pulse Ox 93 Oxygen Delivery Method Room Air Room Air Weight Weight: 123 lb Body Mass Index (BMI) 23.2 Physical Exam Narrative Physical Examination: General: Awake, alert, oriented x 3 and cooperative, seated upright in the ED bed, fatigued and ill-appearing. Skin: Normal color, normal turgor, no icterus, no cyanosis except occasional staged ecchymoses. HEENT: AT/NC, EOMI, PERRLA, dry MM, no carotid bruits or JVD noted. Lungs: Diminished, greater bases, no evidence of any distress, occasional end expiratory wheeze, no rales or rhonchi. Heart: Regular rate and rhythm; no gallop, rub audible. Abdomen: Soft, NTTP, ND, hyperactive BS, no HSM. Extremities: No cyanosis, clubbing, or edema. Neurological: Patient awake, alert, oriented as noted, cognitive function intact; pupils equally reactive to light and accommodation, cranial nerves II-XII grossly normal, moving all 4 extremities, no focal deficits, strength moderately to severely globally decreased secondary to acute presentation complaints. Psychiatric: Affect appears flat, fatigued, ill-appearing, no acute evidence of depressive or anxiety feelings. Results Lab / Micro Data 07/08/23 15:10 07/08/23 15:10 Labs: Laboratory Results - last 24 hr 07/08/23 15:10: WBC 4.6, RBC 4.33, Hgb 13.4, Hct 40.4, MCV 93.3, MCH 30.9, MCHC 33.2, RDW Std Deviation 41.3, RDW Coeff of Stormy 11.9, Plt Count 184, MPV 9.2, Immature Gran % (Auto) 0.400, Neut % (Auto) 70.8 H, Lymph % (Auto) 15.2 L, [place] % (Auto) 13.2 H, Eos % (Auto) 0.2, Baso % (Auto) 0.2, Absolute Neuts (auto) 3.2, Absolute Lymphs (auto) 0.69 L, Nucleated RBC % 0, Sodium 130 L, Potassium 3.6, Chloride 95 L, Carbon Dioxide 28.0, Anion Gap 7, BUN 9, Creatinine 0.60, Estim Creat Clear Calc 52.90, Est GFR (MDRD) Af Amer 129, Est GFR (MDRD) Non-Af 107, BUN/Creatinine Ratio 15.1, Glucose 79, Calcium 8.2 L Micro: Microbiology 07/08/23 14:21 Mucosa - Nasopharyngeal SARS-CoV-2, Influenza & RSV (PCR) - Final SARS-CoV-2 (COVID 19 PCR) Imagaing Radiology Impression Chest X-Ray 07/08/23 14:30 IMPRESSION: Stable examination. Electronically Signed: Hammad Middleton MD at 14:42 EST , Assessment & Plan Assessment/Plan (1) COVID-19: (2) COPD exacerbation: PLAN: Plan The patient is a 67 y/o F w/ PMHx: GERD, COPD/Asthma with allergic rhinitis with chronic hypoxic respiratory failure (2L NC q HS only), Anxiety and Depression, GERD, Diabetes mellitus type II, HTN, HLD, Tobacco use, Known Mediastinal Lymphadenopathy following with Pulmonary Medicine with ongoing outpatient continued CT surveillance (order noted for 08/27/2023) with most recent visit with pulmonary noted 04/23/2023 who presents to the [facility] ED on 07/08/23 with history of progressively worsening fatigue, malaise, nonproductive cough with occasional wheezing prompting her to use oxygen throughout the day as she normally uses during the HS only with decrease to 87-88% even on supplementation prompting eventual ED evaluation. #1. Acute on Chronic COPD exacerbation w/ Acute Hypoxic on Chronic Hypoxic Respiratory Failure (2L NC q HS only): Will admit to [facility], maintain on oxygen with wean as tolerated to home oxygen supplementation of 2L NC q HS only, continue ATC duonebs, PRN albuterol, maintain on COVID precautions, HOB, IS parameters, will obtain D-dimer, procalcitonin, CRP, CPK, Ferritin, LDH, trop and BNP, continue supportive, will initiate and continue IV decadron x 10 doses, given presentation will also initiate IV remdesivir but defer to discretion of Infectious disease. #2. Known mediastinal lymphadenopathy: Following with pulmonary medicine, last visit noted 04/23/2023, order already in place for continued CT surveillance with next imaging 08/27/2023. #3. Chart reported Hypertension: Noted history reportedly resolved with weight loss however be cautious clarifying to make sure she is not on any medications, will add if appropriate however BPs appear low normal currently, will have as needed IV hydralazine in the interim. #4. Chart reported Hyperlipidemia: Per current list not on a statin therapy, encouraged outpatient continued evaluation and follow-up. #5. Chart reported diabetes mellitus type II: Reportedly resolved with weight loss however clarifying to be sure she is not on any medications, glucose currently 79, will obtain hemoglobin A1c given patient planned usage of steroids, last noted hemoglobin A1c 10/16/2017 5.5%, at this time we will continue ADA diet but defer Accu-Cheks/sliding scale unless blood sugars significantly elevated or A1c consistent with prediabetes/diabetes. #6. Anxiety and depression: We will continue patient low-dose hydroxyzine as needed but clarifying if patient is on any chronic regimen, pending reevaluation by primary care may necessitate alternate therapy for better control. #7. Allergic rhinitis: We will continue patient home fluticasone, loratadine home regimen. #8. GERD: We will continue patient on famotidine regimen. #9. Tobacco Abuse: Encouraged cessation, inpatient consultation per RT, NR if desired. #10. DVT prophylaxis: Lovenox. #11. CODE status: Patient HCPOA and living will are not in place but if she needed to medical decision-maker she would want to be her daughter Julita. Discussed CODE status at length including difference between FULL code, DNR-CCA and DNR-CC status. Following discussions about the differences in these status, requested Full Code status. She also notes being amenable to BiPAP and antiviral treatments for COVID. Advanced Care Planning Face to Face Time: 16 minutes. Charges/Coding Visit Charges Inpatient E&M: 31955 Init Hosp L3 Procedures Hospitalists Procedures: 78770 Advncd Care Plan 30 Min
--- OUTSIDE RECORDS SUMMARY | 2023-07-08 17:33 | XMS RPT_ITS | CCD ---
Author Name Unknown Address [address] [place] [address] Organization [facility] Care Team Providers Care Experimental Physicist Name Role Phone NORMA MENDOZA Unavailable Unavailable Ankit Martinez MD Primary Care Provider DR ANKIT MARTINEZ MD Primary Care Physician Ankit Martinez MD Primary Care Provider Ankit Martinez MD Primary Care Provider Ankit Martinez MD Primary Care Provider LEXIE RIZO Attending Unavailable Unavailable Primary Care Provider UnavailDR ANKIT Villafana MD Primary Care Unavailab RICARDO Pina DO Attending Unavailable ANKIT MARTINEZ Primary Care Unavailable FLOREZ, SHERRY Referring Unavailable PREBIANIYA, REBECCA Attending Unavailable ANKIT MARTINEZ Primary Care Unavailable FLOREZ, SHERRY Attending Unavailable PARKER, SHERRY Referring Unavailable ANKIT MARTINEZ Primary Care Unavailable MANDI FLOREZMIT Attending Unavailable LILLIE BRAN Referring Unavailable PREBIANIYA, REBECCA Attending Unavailable ANKIT MARTINEZ Primary Care Unavailable PREBISH, REBECCA Attending Unavailable PREBISH, REBECCA Referring Unavailable ANKIT MARTINEZ Primary Care Unavailable ANKIT MARTINEZ Primary Care Unavailable PREBIANIYA, REBECCA Attending Unavailable ANKIT MARTINEZ Referring Unavailable ANKIT MARTINEZ Primary Care Unavailable ANKIT MARTINEZ Primary Care Unavailable ANKIT MARTINEZ Attending Unavailable ANKIT MARTINEZ Primary Care Unavailable ANKIT MARTINEZ Referring Unavailable ANKIT MARTINEZ Primary Care Unavailable ANKIT MARTINEZ Primary Care Unavailable YANA HERRERA Attending Unavailable ANKIT MARTINEZ Primary Care Unavailable YANA HERRERA Referring Unavailable ELDERBROCK, ANKIT D Primary Care Unavailable ELDERBROCK, ANKIT D Attending Unavailable ELDERBROCK, ANKIT D Primary Care Unavailable ELDERBROCK, ANKIT D Attending Unavailable ELDERBROCK, ANKIT D Primary Care Unavailable ELDERBROCK, ANKIT D Primary Care Unavailable ELDERBROCK, ANKIT D Attending Unavailable ELDERBROCK, ANKIT D Primary Care Unavailable ELDERBROCK, ANKIT D Referring Unavailable ELDERBROCK, ANKIT D Primary Care Unavailable PERI MONTAÑO Attending Unavailable ELDERDILCIA, ANKIT Lawrence Primary Care Unavailable NAUN HENSON Attending Unavailable PREBISH, REBECCA Referring Unavailable ELDERBROCK, ANKIT D Primary Care Unavailable PREBISH, REBECCA Referring Unavailable Allergies Allergy Classification Reported Allergen(s) Allergy Type Date of Onset Reaction(s) Facility (20 sources) aclidinium; Translations: [ACLIDINIUM BROMIDE] Drug Allergy 06-14-20 17 Other: See Comments, Headache, Palpitations [facility] Repository (20 sources) doxycycline; Translations: [DOXYCYCLINE] Drug Allergy 10-22-19 18 Mental Status Change, Mental state finding (finding) [facility] Repository (20 sources) gabapentin; Translations: [GABAPENTIN] Drug Allergy 06-09-20 16 Intolerance, Anxiety (finding), Dyspnea (finding), Anxiety, Shortness of breath [facility] Repository (20 sources) ipratropium; Translations: [IPRATROPIUM] Drug Allergy 05-19-20 17 Other: See Comments, Headache (finding), Tremor (finding), Headache [facility] Repository (20 sources) levoFLOXacin; Translations: [LEVOFLOXACIN] Drug Allergy 10-22-19 18 Other: See Comments, Nausea (finding), Dizziness (finding), Dizziness, Nausea Only [facility] Repository (20 sources) Penicillins; Translations: [PENICILLINS] Propensity to adverse reactions to drug (disorder) 04-24-20 08 Anaphylaxis [facility] Repository (20 sources) sertraline; Translations: [SERTRALINE HCL] Drug Allergy 05-19-20 16 GI Upset [facility] Repository (20 sources) umeclidinium; Translations: [UMECLIDINIUM] Drug Allergy 05-13-20 17 Other: See Comments [facility] Repository (20 sources) METHYLPREDNISONE; Translations: [METHYLPREDNISONE] Propensity to adverse reactions to drug (disorder) 08-22-19 16 Myalgia [facility] Other Mobile Repository (20 sources) Amitriptyline; Translations: [amitriptyline] Drug Allergy 01-17-20 20 Intolerance, Chest pain (finding) [facility] Work Phone: (20 sources) DULoxetine; Translations: [duloxetine] Drug Allergy 01-17-20 Intolerance, Panic attack (finding) [facility] Work Phone: (20 sources) pregabalin; Translations: [pregabalin] Drug Allergy 01-17-20 20 Other: See Comments, Eructation, function (observable entity), Chest pain (finding), Dyspnea (finding) [facility] (20 sources) Sulfamethoxazole / Trimethoprim; Translations: [sulfamethoxazole-t rimethoprim] Drug Allergy 12-02-19 18 Other: See Comments, Dyspnea (finding), Shortness of breath [facility] (3 sources) aclidinium; Translations: [aclidinium] Drug Allergy Headache (finding), Tremor (finding), Palpitations (finding) [facility] (7 sources) methylPREDNISolone; Translations: [methylprednisolone ] Drug Allergy 07-08-19 Muscle pain (finding) [facility] Medications Current Medications Medication Drug Class(es) Dates Sig (Normalized) Sig (Original) acetaminophen 325 mg / HYDROcodone bitartrate 5 mg oral tablet (20 sources) Opioid Agonist Start: 03-20-2023 End: 07-18-2023 take 1 tablet by mouth every six hours as needed for pain HYDROcodone-acetam inophen (NORCO) 5-325 mg per tablet Indications: Thoracic spondylosis without myelopathy , Lumbosacral spondylosis without myelopathy , Cervical spondylosis without myelopathy , Chronic pain syndrome Take 1 tablet by mouth every 6 hours as needed for pain for up to 30 days. Take one pill 4 times daily as needed for back pain Do not start before May 19, 2023. 105 tablet 0 05/19/2023 06/18/2023 Active Completed/Discontinued Medications Medication Drug Class(es) Dates Sig (Normalized) Sig (Original) albuterol 0.83 mg/ml inhalation solution (20 sources) beta2-Adrenergic Agonist Start: 11-12-2021 End: 12-03-2021 take 1 dose by inhalation every four hours as needed albuterol 2.5 mg/3 mL (0.083%) inhalation solution Dose : 2.5 mg = 3 mL, Inhalation, q4h, PRN Wheezing, # 180 mL, 0 Refill(s), [facility] [address], cm, 11/10/21 14:40:00 EDT, Height Start Date: 11/12/21 Stop Date: 12/03/21 Status: Ordered Problems Active Problems Problem Classification Problem Date Documented Da te Episodic/Chronic Abdominal pain (20 sources) Suprapubic pain; Translations: [Pelvic and perineal pain] Onset: 1 05-15-2011 Episodic Anxiety disorders (20 sources) Anxiety; Translations: [Anxiety disorder, unspecified] Onset: 5 10-30-2014 Chronic Blindness and vision defects (3 sources) Bilateral myopia of eyes; Translations: [Myopia, bilateral] Episodic Calculus of urinary tract (20 sources) Calculus of kidney; Translations: [Kidney stone] Onset: 4 08-14-2013 Episodic Cardiac dysrhythmias (20 sources) Palpitations; Translations: [Palpitations] Onset: 1 05-12-2021 Episodic Cataract (3 sources) Bilateral posterior subcapsular polar senile cataract of eyes; Translations: [Posterior subcapsular polar age-related cataract, bilateral] Chronic Chronic obstructive pulmonary disease and bronchiectasis (20 sources) Chronic obstructive lung disease; Translations: [Chronic obstructive pulmonary disease, unspecified] Onset: 0 07-09-2017 Chronic Coronary atherosclerosis and other heart disease (1 source) Coronary atherosclerosis; Translations: [Atherosclerotic heart disease of [place] coronary artery without angina pectoris] Chronic Disorders of lipid metabolism (20 sources) Dyslipidemia; Translations: [Hyperlipidemia, unspecified] Onset: 1 05-12-2021 Chronic Esophageal disorders (20 sources) Gastroesophageal reflux disease; Translations: [Gastro-esophageal reflux disease without esophagitis] Onset: 5 10-30-2014 Chronic Essential hypertension (9 sources) Essential hypertension; Translations: [Essential (primary) hypertension] Onset: 2 Chronic Fluid and electrolyte disorders (2 sources) Hyponatremia 03-20-2022 Episodic Genitourinary symptoms and ill-defined conditions (20 sources) Female stress incontinence; Translations: [Stress incontinence (female) (male)] Onset: 2 10-28-2011 Chronic Immunizations and screening for infectious disease (2 sources) Needs influenza immunization; Translations: [Encounter for immunization] 04-05-2023 Episodic Malaise and fatigue (1 source) Fatigue; Translations: [Other fatigue] Episodic Menopausal disorders (1 source) Atrophic vaginitis; Translations: [Postmenopausal atrophic vaginitis] Chronic Mood disorders (20 sources) Depressive disorder; Translations: [Depression] Onset: 6 05-12-2016 Chronic Nausea and vomiting (1 source) Nausea; Translations: [Nausea] Episodic Nutritional deficiencies (20 sources) Vitamin D deficiency; Translations: [Vitamin D deficiency, unspecified] Onset: 9 08-31-2018 Chronic Osteoporosis (3 sources) Osteoporosis; Translations: [Age-related osteoporosis without current pathological fracture] Chronic Other aftercare (8 sources) Long-term current use of opiate analgesic drug; Translations: [terminal clerk (current) use of opiate analgesic] Episodic Other aftercare (2 sources) Post-discharge follow-up; Translations: [Encounter for follow-up examination after completed treatment for conditions other than malignant neoplasm] Episodic Other connective tissue disease (3 sources) Myofascial pain; Translations: [Myalgia, other site] Episodic Other connective tissue disease (2 sources) Muscle pain; Translations: [Myalgia, unspecified site] 01-14-2023 Episodic Other diseases of bladder and urethra (1 source) Urethral caruncle; Translations: [Urethral caruncle] Episodic Other eye disorders (1 source) Dry eyes; Translations: [Dry eye syndrome of bilateral lacrimal glands] Episodic Other female genital disorders (1 source) Pruritus of vagina; Translations: [Other specified noninflammatory disorders of vagina] Episodic Other female genital disorders (1 source) Vaginal odor; Translations: [Other specified noninflammatory disorders of vagina] Episodic Other gastrointestinal disorders (3 sources) Chronic constipation; Translations: [Other constipation] Episodic Other gastrointestinal disorders (2 sources) Dysphagia; Translations: [Dysphagia, unspecified] Onset: 2 Episodic Other lower respiratory disease (3 sources) Hypoxia 04-22-2016 Episodic Other lower respiratory disease (1 source) Abnormal findings on diagnostic imaging of lung; Translations: [Other nonspecific abnormal finding of lung field] Onset: 2 Episodic Other nervous system disorders (13 sources) Chronic pain syndrome; Translations: [Chronic pain syndrome] Chronic Other nervous system disorders (2 sources) Chronic pain; Translations: [Other chronic pain] Chronic Other nervous system disorders (1 source) Chronic pain syndrome; Translations: [Chronic pain syndrome] Onset: 3 Chronic Other nutritional; endocrine; and metabolic disorders (2 sources) Hypomagnesemia 03-21-2022 Chronic Other nutritional; endocrine; and metabolic disorders (2 sources) Weight loss; Translations: [Abnormal weight loss] Episodic Other nutritional; endocrine; and metabolic disorders (1 source) Decrease in appetite; Translations: [Anorexia] Episodic Other and delivery including normal (3 sources) 11-10-2021 Episodic Past or Other Problems Problem Classification Problem Date Documented Da te Episodic/Chronic Genitourinary symptoms and ill-defined conditions (20 sources) Urgent desire to urinate; Translations: [Urgency of urination] Onset: 08-24-2013 08-24-2013 Episodic Nonspecific chest pain (20 sources) Chest pain; Translations: [Chest pain, unspecified] Onset: 05-12-2021 05-12-2021 Episodic Other aftercare (3 sources) terminal clerk (current) use of opiate analgesic; Translations: [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] Onset: 11-05-2022 Episodic Other bone disease and musculoskeletal deformities (20 sources) Osteopenia; Translations: [Other specified disorders of bone density and structure, unspecified site] Onset: 09-03-2016 09-03-2016 Episodic Other connective tissue disease (1 source) Myalgia, unspecified site; Translations: [Myalgia] Onset: 01-14-2023 Episodic Other connective tissue disease (1 source) Myalgia, other site; Translations: [Myofascial pain] Onset: 11-05-2022 Episodic Other gastrointestinal disorders (20 sources) Bloating symptom; Translations: [Abdominal distension (gaseous)] Onset: 05-15-2011 05-15-2011 Episodic Other gastrointestinal disorders (4 sources) Abdominal bloating; Translations: [Abdominal distension (gaseous)] Onset: 05-15-2011 05-15-2011 Episodic Other lower respiratory disease (20 sources) Dyspnea on exertion; Translations: [Dyspnea, unspecified] Onset: 05-12-2021 05-12-2021 Episodic Other screening for suspected conditions (not mental disorders or infectious disease) (20 sources) Patient encounter status; Translations: [Encounter for screening for other disorder] Onset: 10-21-2017 10-21-2017 Episodic Residual codes; unclassified (1 source) Asymptomatic menopausal state; Translations: [Asymptomatic postmenopausal state] Onset: 07-29-2022 Episodic Results Test Name Value Interpretation Reference Range Facil ity Vital Signs Date Time Vital Sign Value Performing Clinician Facility 05-29-2023 23:45-0500 Heart rate 100 /min RICARDO REICHFIELD DO [facility] 05-29-2023 23:45-0500 Respiratory rate 17 /min RICARDO REICHFIELD DO [facility] 05-29-2023 21:37-0500 Heart rate 94 /min RICARDO REICHFIELD DO [facility] 05-29-2023 21:37-0500 Respiratory rate 22 /min RICARDO REICHFIELD DO [facility] 05-29-2023 20:28-0500 Heart rate 95 /min RICARDO REICHFIELD DO [facility] 05-29-2023 20:28-0500 Respiratory rate 20 /min RICARDO REICHFIELD DO [facility] 05-29-2023 20:17-0500 Body temperature 98.6 [degF] RICARDO REICHFIELD DO [facility] 05-29-2023 20:17-0500 Body weight 45.9 kg RICARDO REICHFIELD DO [facility] 05-29-2023 20:17-0500 Diastolic Blood Pressure Non-Invasive 76 mm[Hg] [facility] 05-29-2023 20:17-0500 Systolic Blood Pressure Non-Invasive 168 mm[Hg] [facility] 05-13-2023 08:58-0500 Heart rate 75 /min Rebecca Prebish DERMATOLOGY SALES REPRESENTATIVE.CONFIDENTIAL SECRETARY Work Phone: [facility] 05-13-2023 08:58-0500 Respiratory rate 18 /min Rebecca Prebish DERMATOLOGY SALES REPRESENTATIVE.CONFIDENTIAL SECRETARY Work Phone: [facility] 05-13-2023 08:58-0500 SaO2% (BldA) [Mass fraction] 96 % Rebecca Prebish DERMATOLOGY SALES REPRESENTATIVE.CONFIDENTIAL SECRETARY Work Phone: [facility] 04-05-2023 14:25-0400 Body weight 45.31 kg Ankit Martinez MD Work Phone: [facility] 04-05-2023 14:25-0400 Diastolic blood pressure 70 mm[Hg] Ankit Martinez MD Work Phone: [facility] 04-05-2023 14:25-0400 Heart rate 84 /min Ankit Martinez MD Work Phone: [facility] 04-05-2023 14:25-0400 Respiratory rate 16 /min Ankit Martinez MD Work Phone: [facility] 04-05-2023 14:25-0400 Systolic blood pressure 118 mm[Hg] Ankit Martinez MD Work Phone: [facility] 01-14-2023 14:54-0400 Heart rate 73 /min Rebecca Prebish DERMATOLOGY SALES REPRESENTATIVE.CONFIDENTIAL SECRETARY Work Phone: [facility] 01-14-2023 14:54-0400 Respiratory rate 16 /min Rebecca Prebish DERMATOLOGY SALES REPRESENTATIVE.CONFIDENTIAL SECRETARY Work Phone: [facility] 01-14-2023 14:54-0400 SaO2% (BldA) [Mass fraction] 94 % Rebecca Sandybianiya DERMATOLOGY SALES REPRESENTATIVE.CONFIDENTIAL SECRETARY Work Phone: [facility] 12-09-2022 16:31-0400 Body temperature 98.91 [degF] [facility] DERMATOLOGY SALES REPRESENTATIVE.CONFIDENTIAL SECRETARY Work Phone: [facility] 12-09-2022 16:31-0400 Body weight 46.72 kg [facility] DERMATOLOGY SALES REPRESENTATIVE.CONFIDENTIAL SECRETARY Work Phone: [facility] 12-09-2022 16:31-0400 Diastolic blood pressure 76 mm[Hg] [facility] DERMATOLOGY SALES REPRESENTATIVE.CONFIDENTIAL SECRETARY Work Phone: [facility] 12-09-2022 16:31-0400 Heart rate 76 /min [facility] DERMATOLOGY SALES REPRESENTATIVE.CONFIDENTIAL SECRETARY Work Phone: [facility] 12-09-2022 16:31-0400 Respiratory rate 20 /min [facility] DERMATOLOGY SALES REPRESENTATIVE.CONFIDENTIAL SECRETARY Work Phone: [facility] 12-09-2022 16:31-0400 SaO2% (BldA) [Mass fraction] 94 % [facility] DERMATOLOGY SALES REPRESENTATIVE.CONFIDENTIAL SECRETARY Work Phone: [facility] 12-09-2022 16:31-0400 Systolic blood pressure 120 mm[Hg] [facility] DERMATOLOGY SALES REPRESENTATIVE.CONFIDENTIAL SECRETARY Work Phone: [facility] 11-05-2022 14:34-0400 Heart rate 71 /min Sherry Florez MD Work Phone: [facility] 11-05-2022 14:34-0400 Respiratory rate 18 /min Sherry Florez MD Work Phone: [facility] 11-05-2022 14:34-0400 SaO2% (BldA) [Mass fraction] 95 % Sherry Florez MD Work Phone: [facility] 10-19-2022 14:31-0400 Body weight 47.63 kg Ankit Martinez MD Work Phone: [facility] 10-19-2022 14:31-0400 Diastolic blood pressure 78 mm[Hg] Ankit Martinez MD Work Phone: [facility] 10-19-2022 14:31-0400 Heart rate 80 /min Ankit Martinez MD Work Phone: [facility] 10-19-2022 14:31-0400 Respiratory rate 20 /min Ankit Martinez MD Work Phone: [facility] 10-19-2022 14:31-0400 Systolic blood pressure 136 mm[Hg] Ankit Martinez MD Work Phone: [facility] 08-20-2022 14:05-0500 Heart rate 77 /min Sherry Florez MD Work Phone: [facility] 08-20-2022 14:05-0500 Respiratory rate 14 /min Sherry Florez MD Work Phone: [facility] 08-20-2022 14:05-0500 SaO2% (BldA) [Mass fraction] 99 % Sherry Florez MD Work Phone: [facility] 08-18-2022 14:57-0500 Body weight 47.99 kg Ankit Martinez MD Work Phone: [facility] 08-18-2022 14:57-0500 Diastolic blood pressure 78 mm[Hg] Ankit Martinez MD Work Phone: [facility] 08-18-2022 14:57-0500 Heart rate 70 /min Ankit Martinez MD Work Phone: [facility] 08-18-2022 14:57-0500 Respiratory rate 20 /min Ankit Martinez MD Work Phone: [facility] 08-18-2022 14:57-0500 SaO2% (BldA) [Mass fraction] 97 % Ankit Martinez MD Work Phone: [facility] 08-18-2022 14:57-0500 Systolic blood pressure 122 mm[Hg] Ankit Martinez MD Work Phone: [facility] 08-12-2022 16:09-0500 Body temperature 99 [degF] Jake Johnson MD Work Phone: [facility] 08-12-2022 16:09-0500 Body weight 47.63 kg Jake Johnson MD Work Phone: [facility] 08-12-2022 16:09-0500 Diastolic blood pressure 64 mm[Hg] Jake Johnson MD Work Phone: [facility] 08-12-2022 16:09-0500 Heart rate 83 /min Jake Johnson MD Work Phone: [facility] 08-12-2022 16:09-0500 Respiratory rate 23 /min Jake Johnson MD Work Phone: [facility] 08-12-2022 16:09-0500 SaO2% (BldA) [Mass fraction] 96 % Jake Johnson MD Work Phone: [facility] 08-12-2022 16:09-0500 Systolic blood pressure 118 mm[Hg] Jake Johnson MD Work Phone: [facility] 07-27-2022 14:48-0500 Body height 157.5 cm Yana Herrera APRN.CONFIDENTIAL SECRETARY Work Phone: [facility] 07-27-2022 14:48-0500 Body weight 47.17 kg Yana Herrera APRN.CONFIDENTIAL SECRETARY Work Phone: [facility] 07-27-2022 14:48-0500 Diastolic blood pressure 68 mm[Hg] Yana Herrera APRN.CONFIDENTIAL SECRETARY Work Phone: [facility] 07-27-2022 14:48-0500 Systolic blood pressure 154 mm[Hg] Yana Herrera APRN.CONFIDENTIAL SECRETARY Work Phone: [facility] 06-11-2022 14:31-0500 Heart rate 80 /min Lillie Bran APRN.CONFIDENTIAL SECRETARY Work Phone: [facility] 06-11-2022 14:31-0500 Respiratory rate 18 /min Lillie Bran DERMATOLOGY SALES REPRESENTATIVE.CONFIDENTIAL SECRETARY Work Phone: [facility] 06-11-2022 14:31-0500 SaO2% (BldA) [Mass fraction] 97 % Lillie Yina DERMATOLOGY SALES REPRESENTATIVE.CONFIDENTIAL SECRETARY Work Phone: [facility] 06-05-2022 10:10-0500 Body weight 46.72 kg Magalys Tannhof DERMATOLOGY SALES REPRESENTATIVE.CONFIDENTIAL SECRETARY Work Phone: [facility] 06-05-2022 10:10-0500 Diastolic blood pressure 70 mm[Hg] Magalys Tannhof DERMATOLOGY SALES REPRESENTATIVE.CONFIDENTIAL SECRETARY Work Phone: [facility] 06-05-2022 10:10-0500 Heart rate 74 /min Magalys Tannhof DERMATOLOGY SALES REPRESENTATIVE.CONFIDENTIAL SECRETARY Work Phone: [facility] 06-05-2022 10:10-0500 Respiratory rate 16 /min Magalys Tannhof DERMATOLOGY SALES REPRESENTATIVE.CONFIDENTIAL SECRETARY Work Phone: [facility] 06-05-2022 10:10-0500 SaO2% (BldA) [Mass fraction] 96 % Magalys Tannhof DERMATOLOGY SALES REPRESENTATIVE.CONFIDENTIAL SECRETARY Work Phone: [facility] 06-05-2022 10:10-0500 Systolic blood pressure 140 mm[Hg] Magalys Tannhof DERMATOLOGY SALES REPRESENTATIVE.CONFIDENTIAL SECRETARY Work Phone: [facility] 05-28-2022 11:06-0500 Heart rate 92 /min LAKISHA ROBERTSON DERMATOLOGY SALES REPRESENTATIVE-CONFIDENTIAL SECRETARY [facility] 05-28-2022 11:06-0500 Respiratory rate 20 /min LAKISHA TORIENEN DERMATOLOGY SALES REPRESENTATIVE-CONFIDENTIAL SECRETARY [facility] 05-28-2022 10:54-0500 Heart rate 88 /min LAKISHA KENNEN DERMATOLOGY SALES REPRESENTATIVE-CONFIDENTIAL SECRETARY [facility] 05-28-2022 10:54-0500 Respiratory rate 20 /min LAKISHA KENNEN DERMATOLOGY SALES REPRESENTATIVE-CONFIDENTIAL SECRETARY [facility] 05-28-2022 10:00-0500 Heart rate 93 /min LAKISHA ROBERTSON DERMATOLOGY SALES REPRESENTATIVE-CONFIDENTIAL SECRETARY [facility] 05-28-2022 09:03-0500 Heart rate 88 /min LAKISHA ROBERTSON DERMATOLOGY SALES REPRESENTATIVE-CONFIDENTIAL SECRETARY [facility] 05-28-2022 08:36-0500 Heart rate 86 /min LAKISHA ROBERTSON DERMATOLOGY SALES REPRESENTATIVE-CONFIDENTIAL SECRETARY [facility] 05-28-2022 07:02-0500 Body temperature 98.24 [degF] LAKISHA ROBERTSON DERMATOLOGY SALES REPRESENTATIVE-CONFIDENTIAL SECRETARY [facility] 05-28-2022 07:02-0500 Diastolic Blood Pressure Non-Invasive 79 1 LAKISHA ROBERTSON DERMATOLOGY SALES REPRESENTATIVE-CONFIDENTIAL SECRETARY [facility] 05-28-2022 07:02-0500 Reason For Taking VItal Signs LAKISHA ROBERTSON DERMATOLOGY SALES REPRESENTATIVE-CONFIDENTIAL SECRETARY [facility] 05-28-2022 07:02-0500 Systolic Blood Pressure Non-Invasive 136 1 LAKISHA ROBERTSON DERMATOLOGY SALES REPRESENTATIVE-CONFIDENTIAL SECRETARY [facility] 05-28-2022 06:32-0500 Heart rate 80 /min LAKISHA ROBERTSON DERMATOLOGY SALES REPRESENTATIVE-CONFIDENTIAL SECRETARY [facility] 05-28-2022 03:47-0500 Body temperature 97.88 [degF] LAKISHA ROBERTSON DERMATOLOGY SALES REPRESENTATIVE-CONFIDENTIAL SECRETARY [facility] 05-28-2022 03:47-0500 Diastolic Blood Pressure Non-Invasive 58 1 LAKISHA ROBERTSON DERMATOLOGY SALES REPRESENTATIVE-CONFIDENTIAL SECRETARY [facility] 05-28-2022 03:47-0500 Heart rate 76 /min LAKISHA ROBERTSON DERMATOLOGY SALES REPRESENTATIVE-CONFIDENTIAL SECRETARY [facility] 05-28-2022 03:47-0500 Systolic Blood Pressure Non-Invasive 105 1 LAKISAH ROBERTSON DERMATOLOGY SALES REPRESENTATIVE-CONFIDENTIAL SECRETARY [facility] 05-27-2022 23:32-0500 Body temperature 97.7 [degF] LAKISHA ROBERTSON DERMATOLOGY SALES REPRESENTATIVE-CONFIDENTIAL SECRETARY [facility] 05-27-2022 23:32-0500 Diastolic Blood Pressure Non-Invasive 64 1 LAKISHA ROBERTSON DERMATOLOGY SALES REPRESENTATIVE-CONFIDENTIAL SECRETARY [facility] 05-27-2022 23:32-0500 Reason For Taking VItal Signs LAKISHA ROBERTSON DERMATOLOGY SALES REPRESENTATIVE-CONFIDENTIAL SECRETARY [facility] 05-27-2022 23:32-0500 Systolic Blood Pressure Non-Invasive 107 1 LAKISHA ROBERTSON DERMATOLOGY SALES REPRESENTATIVE-CONFIDENTIAL SECRETARY [facility] 05-27-2022 19:06-0500 Reason For Taking VItal Signs LAKISHA RBOERTSON DERMATOLOGY SALES REPRESENTATIVE-CONFIDENTIAL SECRETARY [facility] 05-27-2022 15:43-0500 Heart rate 82 /min LAKISHA YAON DERMATOLOGY SALES REPRESENTATIVE-CONFIDENTIAL SECRETARY [facility] 05-27-2022 11:54-0500 Heart rate 79 /min LAKISHA ROBERTSON DERMATOLOGY SALES REPRESENTATIVE-CONFIDENTIAL SECRETARY [facility] 05-26-2022 11:44-0500 Body height 157.5 cm LAKISHA ROBERTSON DERMATOLOGY SALES REPRESENTATIVE-CONFIDENTIAL SECRETARY [facility] 05-26-2022 11:44-0500 Body weight 47 kg LAKISHA ROBERTSON DERMATOLOGY SALES REPRESENTATIVE-CONFIDENTIAL SECRETARY [facility] 05-26-2022 11:44-0500 Body weight 18.95 kg/m2 LAKISHA ROBERTSON DERMATOLOGY SALES REPRESENTATIVE-CONFIDENTIAL SECRETARY [facility] 05-26-2022 11:43-0500 Body height 157.4 cm LAKISHA ROBERTSON DERMATOLOGY SALES REPRESENTATIVE-CONFIDENTIAL SECRETARY [facility] 05-26-2022 11:43-0500 Body weight 47 kg LAKISHA ROBERTSON DERMATOLOGY SALES REPRESENTATIVE-CONFIDENTIAL SECRETARY [facility] 05-26-2022 07:40-0500 Mean blood pressure 74 mm[Hg] LAKISHA YAON DERMATOLOGY SALES REPRESENTATIVE-CONFIDENTIAL SECRETARY [facility] 05-26-2022 06:43-0500 Mean blood pressure 75 mm[Hg] LAKISHA YAON DERMATOLOGY SALES REPRESENTATIVE-CONFIDENTIAL SECRETARY [facility] 05-26-2022 05:17-0500 Blood Pressure Cuff Size LAKISHA ROBERTSON DERMATOLOGY SALES REPRESENTATIVE-CONFIDENTIAL SECRETARY [facility] 05-26-2022 05:17-0500 Blood Pressure Location LAKISHA YAON DERMATOLOGY SALES REPRESENTATIVE-CONFIDENTIAL SECRETARY [facility] 05-26-2022 05:17-0500 Blood Pressure Method LAKISHA ROBERTSON DERMATOLOGY SALES REPRESENTATIVE-CONFIDENTIAL SECRETARY [facility] 05-26-2022 05:17-0500 Body height 157.5 cm LAKISHA ROBERTSON DERMATOLOGY SALES REPRESENTATIVE-CONFIDENTIAL SECRETARY [facility] 05-26-2022 05:17-0500 Body temperature 211.28 [degF] LAKISHA ROBERTSON DERMATOLOGY SALES REPRESENTATIVE-CONFIDENTIAL SECRETARY [facility] 05-26-2022 05:17-0500 Body weight 46.4 kg LAKISHA ROBERTSON DERMATOLOGY SALES REPRESENTATIVE-CONFIDENTIAL SECRETARY [facility] 04-09-2022 13:51-0400 Heart rate 78 /min Sherry Florez MD Work Phone: [facility] 04-09-2022 13:51-0400 Respiratory rate 16 /min Sheryr Florez MD Work Phone: [facility] 04-09-2022 13:51-0400 SaO2% (BldA) [Mass fraction] 95 % Sherry Florez MD Work Phone: [facility] 03-03-2022 13:06-0400 Body height 157.5 cm Domitila Marco PA-C Work Phone: [facility] 03-03-2022 13:06-0400 Body weight 47.17 kg Domitila Marco PA-C Work Phone: [facility] 03-03-2022 13:06-0400 Diastolic blood pressure 72 mm[Hg] Domitila Marco PA-C Work Phone: [facility] 03-03-2022 13:06-0400 Heart rate 73 /min Domitila Marco PA-C Work Phone: [facility] 03-03-2022 13:06-0400 Systolic blood pressure 118 mm[Hg] Domitila Marco PA-C Work Phone: [facility] 02-04-2022 09:37-0400 Heart rate 84 /min Lillie Bran DERMATOLOGY SALES REPRESENTATIVE.CONFIDENTIAL SECRETARY Work Phone: [facility] 02-04-2022 09:37-0400 Respiratory rate 16 /min Lillie Bran DERMATOLOGY SALES REPRESENTATIVE.CONFIDENTIAL SECRETARY Work Phone: [facility] 02-04-2022 09:37-0400 SaO2% (BldA) [Mass fraction] 94 % Lillie Bran DERMATOLOGY SALES REPRESENTATIVE.CONFIDENTIAL SECRETARY Work Phone: [facility] 01-19-2022 14:49-0400 Body height 157.5 cm Meche Romero DERMATOLOGY SALES REPRESENTATIVE.CONFIDENTIAL SECRETARY Work Phone: [facility] 01-19-2022 14:49-0400 Body weight 47.17 kg Meche Romero DERMATOLOGY SALES REPRESENTATIVE.CONFIDENTIAL SECRETARY Work Phone: [facility] 01-19-2022 14:49-0400 Diastolic blood pressure 74 mm[Hg] Meche Heather DERMATOLOGY SALES REPRESENTATIVE.CONFIDENTIAL SECRETARY Work Phone: [facility] 01-19-2022 14:49-0400 Heart rate 74 /min Meche Heather DERMATOLOGY SALES REPRESENTATIVE.CONFIDENTIAL SECRETARY Work Phone: [facility] 01-19-2022 14:49-0400 Respiratory rate 16 /min Meche Heather DERMATOLOGY SALES REPRESENTATIVE.CONFIDENTIAL SECRETARY Work Phone: [facility] 01-19-2022 14:49-0400 SaO2% (BldA) [Mass fraction] 96 % Meche Heather DERMATOLOGY SALES REPRESENTATIVE.CONFIDENTIAL SECRETARY Work Phone: [facility] 01-19-2022 14:49-0400 Systolic blood pressure 132 mm[Hg] Meche Heather DERMATOLOGY SALES REPRESENTATIVE.CONFIDENTIAL SECRETARY Work Phone: [facility] 12-01-2021 11:32-0400 Body height 157.5 cm Domitila Marco PA-C Work Phone: [facility] 12-01-2021 11:32-0400 Body weight 48.08 kg Domitila Marco PA-C Work Phone: [facility] 12-01-2021 11:32-0400 Diastolic blood pressure 62 mm[Hg] Domitila Marco PA-C Work Phone: [facility] 12-01-2021 11:32-0400 Heart rate 86 /min Domitila Marco PA-C Work Phone: [facility] 12-01-2021 11:32-0400 Systolic blood pressure 102 mm[Hg] Domitila Marco PA-C Work Phone: [facility] 11-25-2021 13:48-0400 Body height 157.5 cm Lillie Bran DERMATOLOGY SALES REPRESENTATIVE.CONFIDENTIAL SECRETARY Work Phone: [facility] 11-25-2021 13:48-0400 Body weight 50.35 kg Lillie Wilsonfield DERMATOLOGY SALES REPRESENTATIVE.CONFIDENTIAL SECRETARY Work Phone: [facility] 11-19-2021 10:02-0400 Body weight 50.35 kg Magalysbrendon Cordonhof DERMATOLOGY SALES REPRESENTATIVE.CONFIDENTIAL SECRETARY Work Phone: [facility] 11-19-2021 10:02-0400 Diastolic blood pressure 80 mm[Hg] Magalys Bravohof DERMATOLOGY SALES REPRESENTATIVE.CONFIDENTIAL SECRETARY Work Phone: [facility] 11-19-2021 10:02-0400 Heart rate 85 /min Magalys Bravohof DERMATOLOGY SALES REPRESENTATIVE.CONFIDENTIAL SECRETARY Work Phone: [facility] 11-19-2021 10:02-0400 Respiratory rate 24 /min Magalys Bravohof DERMATOLOGY SALES REPRESENTATIVE.CONFIDENTIAL SECRETARY Work Phone: [facility] 11-19-2021 10:02-0400 SaO2% (BldA) [Mass fraction] 89 % Magalysbrendon Cordonhof DERMATOLOGY SALES REPRESENTATIVE.CONFIDENTIAL SECRETARY Work Phone: [facility] 11-19-2021 10:02-0400 Systolic blood pressure 120 mm[Hg] Magalys Cordonhof DERMATOLOGY SALES REPRESENTATIVE.CONFIDENTIAL SECRETARY Work Phone: [facility] 11-12-2021 14:26-0400 Body temperature 98.42 [degF] LAKISHA ROBERTSON APRN-CONFIDENTIAL SECRETARY [facility] 11-12-2021 14:26-0400 Diastolic Blood Pressure NBP 71 1 LAKISHA ROBERTSON APRN-CONFIDENTIAL SECRETARY [facility] 11-12-2021 14:26-0400 Heart rate 64 /min LAKISHA ROBERTSON APRN-CONFIDENTIAL SECRETARY [facility] 11-12-2021 14:26-0400 Reason For Taking VItal Signs LAKISHA ROBERTSON APRN-CONFIDENTIAL SECRETARY [facility] 11-12-2021 14:26-0400 Respiratory rate 18 /min LAKISHA ROBERTSON DERMATOLOGY SALES REPRESENTATIVE-CONFIDENTIAL SECRETARY [facility] 11-12-2021 14:26-0400 Systolic Blood Pressure NBP 123 1 LAKISHA ROBERTSON DERMATOLOGY SALES REPRESENTATIVE-CONFIDENTIAL SECRETARY [facility] 11-12-2021 13:12-0400 Heart rate 74 /min LAKISHA ROBERTSON DERMATOLOGY SALES REPRESENTATIVE-CONFIDENTIAL SECRETARY [facility] 11-12-2021 13:12-0400 Respiratory rate 18 /min LAKISHA ROBERTSON DERMATOLOGY SALES REPRESENTATIVE-CONFIDENTIAL SECRETARY [facility] 11-12-2021 10:51-0400 Body temperature 98.24 [degF] LAKISHA ROBERTSON DERMATOLOGY SALES REPRESENTATIVE-CONFIDENTIAL SECRETARY [facility] 11-12-2021 10:51-0400 Diastolic Blood Pressure NBP 56 1 LAKISHA ROBERTSON DERMATOLOGY SALES REPRESENTATIVE-CONFIDENTIAL SECRETARY [facility] 11-12-2021 10:51-0400 Heart rate 70 /min LAKISHA ROBERTSON DERMATOLOGY SALES REPRESENTATIVE-CONFIDENTIAL SECRETARY [facility] 11-12-2021 10:51-0400 Reason For Taking VItal Signs LAKISHA ROBERTSON DERMATOLOGY SALES REPRESENTATIVE-CONFIDENTIAL SECRETARY [facility] 11-12-2021 10:51-0400 Respiratory rate 18 /min LAKISHA ROBERTSON DERMATOLOGY SALES REPRESENTATIVE-CONFIDENTIAL SECRETARY [facility] 11-12-2021 10:51-0400 Systolic Blood Pressure NBP 124 1 LAKISHA YAOKathie DERMATOLOGY SALES REPRESENTATIVE-CONFIDENTIAL SECRETARY [facility] 11-12-2021 09:23-0400 Heart rate 97 /min LAKISHA YAOKathie DERMATOLOGY SALES REPRESENTATIVE-CONFIDENTIAL SECRETARY [facility] 11-12-2021 07:45-0400 Body temperature 98.24 [degF] LAKISHA YAOKathie DERMATOLOGY SALES REPRESENTATIVE-CONFIDENTIAL SECRETARY [facility] 11-12-2021 07:45-0400 Diastolic Blood Pressure NBP 67 1 LAKISHA YAON DERMATOLOGY SALES REPRESENTATIVE-CONFIDENTIAL SECRETARY [facility] 11-12-2021 07:45-0400 Systolic Blood Pressure NBP 107 1 LAKISHA ROBERTSON DERMATOLOGY SALES REPRESENTATIVE-CONFIDENTIAL SECRETARY [facility] 11-12-2021 04:06-0400 Reason For Taking VItal Signs LAKISHA YAOKathie DERMATOLOGY SALES REPRESENTATIVE-CONFIDENTIAL SECRETARY [facility] 11-11-2021 15:17-0400 Diastolic blood pressure 58 mm[Hg] LAKISHA YAOKathie DERMATOLOGY SALES REPRESENTATIVE-CONFIDENTIAL SECRETARY [facility] 11-11-2021 15:17-0400 Systolic blood pressure 112 mm[Hg] LAKISHA YAON DERMATOLOGY SALES REPRESENTATIVE-CONFIDENTIAL SECRETARY [facility] 11-11-2021 11:54-0400 Diastolic blood pressure 68 mm[Hg] LAKISHAEMELI VOGTNEN DERMATOLOGY SALES REPRESENTATIVE-CONFIDENTIAL SECRETARY [facility] 11-11-2021 11:54-0400 Mean blood pressure 84 mm[Hg] LAKISHA YAOKathie DERMATOLOGY SALES REPRESENTATIVE-CONFIDENTIAL SECRETARY [facility] 11-11-2021 11:54-0400 Systolic blood pressure 115 mm[Hg] LAKISHA VOGTDEANNAN DERMATOLOGY SALES REPRESENTATIVE-CONFIDENTIAL SECRETARY [facility] 11-11-2021 08:13-0400 Heart rate 89 /min LAKISHAEMELI VOGTDEANNAN DERMATOLOGY SALES REPRESENTATIVE-CONFIDENTIAL SECRETARY [facility] 11-11-2021 07:18-0400 Diastolic blood pressure 60 mm[Hg] LAKISHA YAON DERMATOLOGY SALES REPRESENTATIVE-CONFIDENTIAL SECRETARY [facility] 11-11-2021 07:18-0400 Mean blood pressure 76 mm[Hg] LAKISHA YAON DERMATOLOGY SALES REPRESENTATIVE-CONFIDENTIAL SECRETARY [facility] 11-11-2021 07:18-0400 Systolic blood pressure 107 mm[Hg] LAKISHA YAOKathie DERMATOLOGY SALES REPRESENTATIVE-CONFIDENTIAL SECRETARY [facility] 11-11-2021 03:10-0400 Heart rate 75 /min LAKISHA VOGTDEANNAN DERMATOLOGY SALES REPRESENTATIVE-CONFIDENTIAL SECRETARY [facility] 11-10-2021 23:02-0400 Heart rate 66 /min LAKIHSA VOGTDEANNAN DERMATOLOGY SALES REPRESENTATIVE-CONFIDENTIAL SECRETARY [facility] 11-10-2021 19:12-0400 Heart rate 76 /min LAKISHA ROBERTSON DERMATOLOGY SALES REPRESENTATIVE-CONFIDENTIAL SECRETARY [facility] 11-10-2021 16:31-0400 Heart rate 100 /min LAKISHA ROBERTSON DERMATOLOGY SALES REPRESENTATIVE-CONFIDENTIAL SECRETARY [facility] 11-10-2021 16:31-0400 Mean blood pressure 84 mm[Hg] LAKISHA ROBERTSON DERMATOLOGY SALES REPRESENTATIVE-CONFIDENTIAL SECRETARY [facility] 11-10-2021 14:40-0400 Body height 157 cm LAKISHA ROBERTSON DERMATOLOGY SALES REPRESENTATIVE-CONFIDENTIAL SECRETARY [facility] 11-10-2021 14:40-0400 Body weight 48.7 kg LAKISHA ROBERTSON DERMATOLOGY SALES REPRESENTATIVE-CONFIDENTIAL SECRETARY [facility] 11-10-2021 14:40-0400 Body weight 19.76 kg/m2 LAKISHA ROBERTSON DERMATOLOGY SALES REPRESENTATIVE-CONFIDENTIAL SECRETARY [facility] 11-10-2021 11:31-0400 Body weight 50.4 kg LAKISHA ROBERTSON DERMATOLOGY SALES REPRESENTATIVE-CONFIDENTIAL SECRETARY [facility] 11-07-2021 10:39-0400 Diastolic blood pressure 63 mm[Hg] Otto Paul MD Work Phone: [facility] 11-07-2021 10:39-0400 Heart rate 74 /min Otto Paul MD Work Phone: [facility] 11-07-2021 10:39-0400 Respiratory rate 18 /min Otto Paul MD Work Phone: [facility] 11-07-2021 10:39-0400 SaO2% (BldA) [Mass fraction] 96 % Otto Paul MD Work Phone: [facility] 11-07-2021 10:39-0400 Systolic blood pressure 146 mm[Hg] Otto Paul MD Work Phone: [facility] 10-21-2021 15:18-0400 Body weight 50.35 kg Ankit Martinez MD Work Phone: [facility] 10-21-2021 15:18-0400 Diastolic blood pressure 80 mm[Hg] Ankit Martinez MD Work Phone: [facility] 10-21-2021 15:18-0400 Heart rate 74 /min Ankit Martinez MD Work Phone: [facility] 10-21-2021 15:18-0400 Respiratory rate 16 /min Ankit Martinez MD Work Phone: [facility] 10-21-2021 15:18-0400 Systolic blood pressure 128 mm[Hg] Ankit Martinez MD Work Phone: [facility] 09-30-2021 14:24-0400 Heart rate 75 /min Otto Paul MD Work Phone: [facility] 09-30-2021 14:24-0400 Respiratory rate 18 /min Otto Paul MD Work Phone: [facility] 09-30-2021 14:24-0400 SaO2% (BldA) [Mass fraction] 95 % Otto Paul MD Work Phone: [facility] Encounters Encounter Date Encounter Type Care Provider Facility Start: 07-01-2023 End: 07-01-2023 ambulatory REBECCA PREBI Facility:[facility] Start: 05-29-2023 End: 05-30-2023 Emergency department patient visit DR ANKIT MARTINEZ MD Facility:[facility] Start: 05-29-2023 End: 05-30-2023 Emergency department patient visit RICARDO SOTOMAYOR DO [facility] Start: 05-13-2023 Telephone encounter Rebecca Lantigua aniya DERMATOLOGY SALES REPRESENTATIVE.CONFIDENTIAL SECRETARY Work Phone: [facility] Procedures Date Procedure Procedure Detail Performing Clinician Start: 04-05-2023 INFLUENZA VACCINE, P RSV FREE, AGE 65+ YR, HIGH DOSE, QUADRIVALENT (FLUZONE HIGH-DOSE) Ankit Martinez MD Work Phone: Start: 04-02-2023 Lipid 1996 panel - S mary or Plasma Ankit Martinez MD Work Phone: Start: 07-27-2022 Urnls dip stick/tabl et rgnt auto w/o microscopy Yana Herrera APRN.CONFIDENTIAL SECRETARY Work Phone: Start: 07-27-2022 Microscopic observat ion [Identifier] in Cervix by Cyto stain Lexie Rizo MD Work Phone: Start: 07-20-2022 End: 07-20-2022 Mammography Bulk Order Provider Start: 05-15-2022 INFLUENZA VACCINE QUADRIVALENT 6 MO - 64 YRS IM Jose Manuel L Maya DO Work Phone: Start: 01-20-2022 Colonoscopy Meche gomez DERMATOLOGY SALES REPRESENTATIVE.CONFIDENTIAL SECRETARY Work Phone: Start: 12-30-2021 Mri spinal canal tho racic w/o contrast matrl Otto Paul MD Work Phone: Start: 11-27-2019 Mammography Otto lawrence MD Work Phone: Start: 11-24-2018 Electrocardiogram Start: 05-28-2011 Colonoscopy Otto lawrence MD Work Phone: Cholecystectomy LAKISHA Vázquez DERMATOLOGY SALES REPRESENTATIVE-CONFIDENTIAL SECRETARY Cholecystectomy LAKISHA Vázquez DERMATOLOGY SALES REPRESENTATIVE-CONFIDENTIAL SECRETARY Entire bladder (body structure) LAKISHA ROBERTSON DERMATOLOGY SALES REPRESENTATIVE-CONFIDENTIAL SECRETARY Ligation of fallopian tube R VERONICAL MARCELO DERMATOLOGY SALES REPRESENTATIVE-CONFIDENTIAL SECRETARY Urinary bladder stru cture (body structure) LAKISHA ROBERTSON DERMATOLOGY SALES REPRESENTATIVE-CONFIDENTIAL SECRETARY Plan of Treatment Date Care Activity Detail Author Start: 01-21-2032 Colonoscopy COLONOSCOPY [facility] Start: 01-21-2032 COLORECTAL CANCER SCREENING COLORECTAL CANCER SCREENING [facility] Start: 04-02-2028 Lipid 1996 panel - S mary or Plasma Lipid Screening [facility] Start: 07-27-2027 HPV TESTING HPV TESTING [facility] Start: 07-27-2027 PAP TESTING PAP TESTING [facility] Start: 04-03-2027 LIPID SCREEN LIPID SCREEN [facility] Start: 07-29-2026 LIPID SCREEN LIPID SCREEN [facility] Start: 04-02-2026 Diabetes Screening Diabetes Screenin g [facility] Start: 07-27-2025 Screening for malign ant neoplasm of cervix [facility] Start: 06-30-2025 DIABETES SCREEN DIABETES SCREEN [facility] Start: 04-03-2025 DIABETES SCREEN DIABETES SCREEN [facility] Start: 11-19-2024 DIABETES SCREEN DIABETES SCREEN [facility] Start: 07-29-2024 DIABETES SCREEN DIABETES SCREEN [facility] Start: 04-05-2024 Annual PCP Team Head Of Talent Management david Disease Visit Annual PCP Team Chronic Disease Visit [facility] Start: 12-22-2023 ANNUAL PCP TEAM BRIDAL SALES CONSULTANT DAVID DISEASE VISIT ANNUAL PCP TEAM CHRONIC DISEASE VISIT [facility] Start: 10-20-2023 ANNUAL PCP TEAM BRIDAL SALES CONSULTANT DAVID DISEASE VISIT ANNUAL PCP TEAM CHRONIC DISEASE VISIT [facility] Start: 10-20-2023 COVID-19 VACCINE (3 - Booster for Moderna series) COVID-19 VACCINE (3 - Booster for Moderna series) [facility] Immunizations Immunization Date Immunization Notes Care Provider Fa cility 04-05-2023 pneumococcal Conjuga te, unspecified formulation Ankit Martinez MD Work Phone: [facility] Work Phone: 04-05-2023 influenza (HD-IIV4) vaccine, age 65+ yr, high dose, quadrivalent, PF (FLUZONE HIGH-DOSE) Ankit Martinez MD Work Phone: [facility] 04-05-2023 pneumococcal (PCV20) vaccine, 20 valent (PREVNAR 20) Ankit Martinez MD Work Phone: [facility] 05-15-2022 influenza virus vaccine, unspecified formulation LAKISHA VOGTVEENA DERMATOLOGY SALES REPRESENTATIVE-CONFIDENTIAL SECRETARY [facility] 05-15-2022 influenza, injectabl e, quadrivalent, contains preservative Immunization [place] Work Phone: [facility] Work Phone: 04-05-2021 influenza virus vaccine, unspecified formulation LAKISHA VOGTVEENA DERMATOLOGY SALES REPRESENTATIVE-CONFIDENTIAL SECRETARY [facility] 04-05-2021 influenza, injectabl e, quadrivalent, contains preservative Otto Pual MD Work Phone: [facility] 02-14-2021 COVID-19 vaccine, fu ll dose (MODERNA) Otto Paul MD Work Phone: [facility] 01-17-2021 COVID-19 vaccine, fu ll dose (MODERNA) Otto Paul MD Work Phone: [facility] 04-09-2020 influenza virus vaccine, unspecified formulation LAKISHAEMELI VOGTVEENA DERMATOLOGY SALES REPRESENTATIVE-CONFIDENTIAL SECRETARY [facility] 04-03-2018 influenza virus vaccine, unspecified formulation LAKISHA TORIEVEENA DERMATOLOGY SALES REPRESENTATIVE-CONFIDENTIAL SECRETARY [facility] 03-09-2017 influenza virus vaccine, unspecified formulation LAKISHA TORIEDEANNAN DERMATOLOGY SALES REPRESENTATIVE-CONFIDENTIAL SECRETARY [facility] 03-09-2017 influenza, injectabl e, quadrivalent, contains preservative Otto Paul MD Work Phone: [facility] 05-01-2016 influenza virus vaccine, unspecified formulation LAKISHA TORIEVEENA DERMATOLOGY SALES REPRESENTATIVE-CONFIDENTIAL SECRETARY [facility] 05-01-2016 influenza, injectabl e, quadrivalent, contains preservative Otto Paul MD Work Phone: [facility] 05-03-2015 influenza virus vaccine, unspecified formulation LAKISHA ROBERTSON DERMATOLOGY SALES REPRESENTATIVE-CONFIDENTIAL SECRETARY [facility] 05-03-2015 influenza, injectabl e, quadrivalent, contains preservative Otto Paul MD Work Phone: [facility] 04-10-2014 influenza virus vaccine, unspecified formulation LAKISHA ROBERTSON DERMATOLOGY SALES REPRESENTATIVE-CONFIDENTIAL SECRETARY [facility] 04-10-2014 influenza, seasonal, injectable Otto Paul MD Work Phone: [facility] 08-25-2013 pneumococcal polysaccharide vaccine, 23 valent Ankit Martinez MD Work Phone: [facility] 07-29-2013 pneumococcal Conjuga te, unspecified formulation Otto Paul MD Work Phone: [facility] Work Phone: 04-27-2013 influenza, seasonal, injectable Otto Paul MD Work Phone: [facility] 04-20-2013 influenza virus vaccine, unspecified formulation Otto Paul MD Work Phone: [facility] Work Phone: 05-12-2012 influenza virus vaccine, unspecified formulation Otto Paul MD Work Phone: [facility] 05-15-2011 tetanus toxoid, redu kenia diphtheria toxoid, and acellular pertussis vaccine, adsorbed Otto Paul MD Work Phone: [facility] Work Phone: 05-09-2011 influenza virus vaccine, unspecified formulation Otto Paul MD Work Phone: [facility] 04-15-2009 influenza virus vaccine, unspecified formulation Otto Paul MD Work Phone: [facility] Work Phone: 04-24-2005 pneumococcal polysaccharide vaccine, 23 valent Otto Paul MD Work Phone: [facility] Payers Date Payer Category Payer Medicaid [id number] 2022 Medicaid [id number] 2022 Medicare [id number] 2022 Private Health Insurance [id number] 2017 Medicaid [facility] MEDICAID [facility] [employer] MEDICAID [id number] 2017-Present [phone] [address] [place] [address] Medicaid [id number] 2017 Medicaid [id number] 1998 Medicaid [id number] 1957 Unknown [id number] Social History Date Type Detail Facility Start: 04-10-1981 End: 03-26-2022 Tobacco smoking status IDIS Smokes tobacco daily [facility] Start: 04-10-1981 History of tobacco use Cigarette Smoker [facility] Work Phone: Start: 09-30-2021 End: 05-13-2023 Alcohol intake Current non-drinker of alcohol (finding) [facility] Start: 11-28-2019 End: 01-17-2020 History SDOH Social Connections Phone 3 [facility] Start: 11-28-2019 End: 01-17-2020 History SDOH Social Connections Get Together 2 [facility] Start: 11-28-2019 End: 01-17-2020 History SDOH Social Connections Tenriism 1 [facility] Start: 11-28-2019 History SDOH Physical Activity DPW 0 [facility] Start: 11-28-2019 History SDOH Stress 5 [facility] Start: 10-15-2020 End: 03-26-2022 Tobacco Comment smoking 1 ppd. [facility] Start: 1955 Sex Assigned At Not on file [facility] Start: 09-20-2021 End: 07-08-2022 Exposure to SARS-CoV-2 (event) Not sure [facility] Start: 11-10-2021 End: 05-26-2022 Tobacco smoking status Heavy tobacco smoker (finding) [facility] Sex Assigned At Sex [facility] Start: 1955 Sex Assigned At Female [facility] Start: 11-30-2021 End: 12-10-2021 Exposure to SARS-CoV-2 (event) Unable to assess [facility] Start: 01-20-2022 End: 11-05-2022 Cigarettes smoked current (pack per day) - Reported 1 [facility] Start: 01-20-2022 End: 03-26-2022 Tobacco use and exposure Smokeless tobacco non-user [facility] Tobacco smoking stat [facility] Tobacco smoking consumption unknown [facility] Start: 11-28-2019 End: 11-05-2022 Social connection and isolation panel [facility] Do you belong to any clubs or organizations such as holiness groups, unions, fraternal or athletic groups, or school groups? No [facility] Are you now , , , , never or living with a partner? [facility] How hard is it for y ou to pay for the very basics like food, housing, medical care, and heating Somewhat hard [facility] Work Phone: Adult Depression Screening Assessment 0 [facility] Do you feel stress - tense, restless, nervous, or anxious, or unable to sleep at night because your mind is troubled all the time - these days [OSQ] Very much [facility] (I/We) worried wheth er (my/our) food would run out before (I/we) got money to buy more. Sometimes true [facility] Work Phone: The food that (I/we) bought just didn't last, and (I/we) didn't have money to get more. Never true [facility] Work Phone: Start: 11-21-2021 Gender identity Identifies as female gender (finding) [facility] Medical Equipment Procedure Code Equipment Code Equipment Origin al Text Equipment Identifier Dates Catheter Uretera l F/G 5fr [facility] - [id number] Start: 10-10-2013 Functional Status Date Assessment Result Facility 05-30-2023 Functional Status Activity Valerie carpio Independent [facility] 05-29-2023 Functional Status Standard Safet y ID band on, Allergy Band on, Call device within reach, Bed in low position, Wheels locked, Upper/Half-Length side-rails up, Safety level maintained [facility] 05-28-2022 Functional Status Room check performed [facility] 05-27-2022 Functional Status Lunch Percent 100 [facility] 05-27-2022 Functional Status Breakfast Percent 100 [facility] 05-27-2022 Functional Status Reason SCD Rem smith/Off Patient refused [facility] [facility] 05-27-2022 Functional Status [facility] 05-26-2022 [facility]26[facility]22 [facility] 05-26-2022 Functional Status [facility] 05-26-2022 Functional Status [facility] 05-26-2022 Functional Status Single level home [facility] 11-12-2021 [facility] 11-12-2021 [facility] 11-12-2021 [facility] 11-12-2021 Functional Status [facility] 11-12-2021 Functional Status [facility] 11-12-2021 Functional Status [facility] 11-12-2021 Functional Status [facility] 11-12-2021 Functional Status [facility] 11-12-2021 Functional Status [facility] 11-11-2021 Functional Status [facility] 11-11-2021 Functional Status [facility] 11-11-2021 Functional Status [facility] 11-10-2021 Functional Status [facility] 11-10-2021 Functional Status [facility] Mental Status Date Assessment Result Facility 05-30-2023 Mental Status Orientation Oriented x 4 [facility] 05-29-2023 [facility] 05-28-2022 Mental Status Oriented x 4 [facility] 05-28-2022 [facility] 05-28-2022 [facility] Status [facility] 05-26-2022 Mental Status [facility] 05-26-2022 Mental Status [facility] 11-12-2021 [facility] Status [facility] 11-12-2021 Mental Status [facility] 11-12-2021 Mental [facility] 11-11-[facility]21 [facility] 11-11-2021 Mental Status [facility] Clinical Notes 05-03-2014 to 07-05-2023 Telephone Encounter - Jodee Daly - 05/13/2023 1:31 PM Kemar Maya LPN - 05/13/2023 8:53 AM Rebecca Root APRN.DANIELLA - 05/13/2023 8:45 AM Christine Vo MA - 03/05/2023 7:32 AM EDT Note Date & Type Note Facility 07-05-2023 Note HNO ID: [id number] Author: NAUN HENSON PT Service: ? Author Type: Physical Therapist Type: Progress Notes Filed: 07/05/2023 16:02 Note Text: Episode Visit Count: 1 Therapist That Will Accept/Oversee The Plan Of Care: Naun Henson Start of Care Date: 07/01/23 Onset Date: 06/28/22 Patient Identified by Name and Date of : Yes REHABILITATION AND SPORTS THERAPY PHYSICAL THERAPY EVALUATION PLAN OF CARE: Assessment: Jessica Gloria presents with chief complaint of neck pain that interferes with bending, heavy exertion, sleeping, dressing, grooming, twisting, pulling, pushing, carrying . She presents with impairments in ADL's, overall function, range of motion, strength, symptom management, and tissue tenderness. Patient did not complete the PROMIS? (Patient Reported Outcome Measures Information System). Prognosis for therapy is Fair due to: clinical presentation, multiple co- morbidities, chronic nature of impairments, limited tolerance to activity . She will benefit from skilled therapy services to meet the goals established for this plan of care as noted below. Goals for Episode of Care: created on 07/01/23 through 09/03/23 Independent in a Home Exercise Program. Patient will decrease pain rating by 2 points to meet minimal clinical important difference for numeric pain rating scale. Restore pain free cervical ROM to minimal limitations to allow for decreased pain. Sleep throughout the night without pain/symptoms. Maintain proper sitting posture throughout the session to allow for decreased pain. Planned Interventions, Frequency, and Duration: Current Frequency: 1x/week Duration: 8 weeks Total Number of Visits Planned: 8 Planned Treatment Interventions: Therapeutic exercise (51214), Neuromuscular re-education (55989), Manual therapy (98972), Therapeutic activities (12966), Self-chcf management (42753), Patient/Family/Caregiver Education, Body Mechanics Training PLAN FOR NEXT VISIT: Contacted Dr concerning possible verterbal artery insuficiency symptoms. Continue gentle stretching until notified of further instructions from him Patient demonstrates good understanding of plan of care and treatment. The above goals and plan of care were discussed and agreed upon by patient/family. SUBJECTIVE: Neck, thoracic, and low back pain for years with continued worsening in each spot. With the neck it is hardx to turn, sleep, drive. Notes mid back pain is the worse and describes it as sharp and feels like something rubbing. Low back hurts into the hips and down the legs. Notes it is very difficult to walk for any real length (even a block). Functional Limitations: bending, heavy exertion, sleeping, dressing, grooming, twisting, pulling, pushing, carrying Prior Level of Function: Independent without limitations Intake Information: Prescription present Red Flags Vertebral Fracture Red Flags: Female Cancer Red Flags: Age >50 or <20, Night pain at rest Infection Red Flags: Systemically unwell Cervical Arterial Dysfunction: Dizziness, Dysphagia, Nausea, Diplopia, Drop attacks, Numbness - face Cervical Arterial Dysfunction Clinical Reasoning: Proceed with caution Cervical Myelopathy: Age > 45 yo, Abnormal gait Cervical Myelopathy Diagnostic Rule: Proceed with caution Red Flags - Cervical Cancer Red Flags: Age >50 or <20, Night pain at rest Infection Red Flags: Systemically unwell Cervical Arterial Dysfunction: Dizziness, Dysphagia, Nausea, Diplopia, Drop attacks, Numbness - face Cervical Arterial Dysfunction Clinical Reasoning: Proceed with caution Cervical Myelopathy: Age > 45 yo, Abnormal gait Cervical Myelopathy Diagnostic Rule: Proceed with caution Pain: Pain Pain Level: 8 Pain Location: Neck, Thoracic Spine, Back Description: Sharp, Shooting, Aching Frequency: Continuous PROMIS Scales T-scores: mean of general population = 50. 5 points is clinically meaningfully difference Percentiles provide an indication of how the patient's score ranks in relation to the general population. Higher percentile rankings indicate better function/quality of life. 50th percentile is the average of the general population and indicates half of respondents had a worse score. OBJECTIVE MEASURES WITH LEVEL OF FUNCTION: Reflexes - Upper Extremity R Brachioradialis : 1+ R Biceps: 1+ L Brachioradialis : 1+ L Biceps: 1+ Reflexes - Lower Extremity R Patellar: 1+ R Achilles: 1+ L Patellar: 1+ L Achilles: 1+ Spine Observations R Cervical Spine Palpation Tenderness: Upper trapezius, Levator scapulae, Sternocleidomastoid, Paraspinals, Suboccipitals L Cervical Spine Palpation Tenderness: Upper trapezius, Levator scapulae, Sternocleidomastoid, Paraspinals, Suboccipitals Cervical Spine ROM Cervical ROM : Limitation AROM Cervical Protrusion AROM: Normal Cervical Retraction AROM: Minimal limitation Cervical Flexion AROM: Minimal limitation C (more content not included)... [facility] 07-01-2023 Note HNO ID: [id number] Author: REBECCA BAORN APRN.CONFIDENTIAL SECRETARY Service: ? Author Type: Nurse Practitioner Type: Progress Notes Filed: 07/01/2023 16:08 Note Text: [facility] Today's Date: 07/01/2023 Last Visit: 03/05/2023 Name: Jessica Gloria : 1955 Purpose: Follow-up Patient Evaluation - This is an established patient, returning today for continued evaluation and management of the chief complaint noted below Chief complaint: neck, middle back and low back pain. Referring Clinician: Rebecca Baron Pertinent Past Medical History: COPD, REYNA, VILLAR, acid reflux, osteopenia, depression/anxiety, back pain Pertinent Past Surgeries: none Plan at last visit: Plan: Jessica Oharaehaus would benefit from the following to reach personal goals for decreasing pain, improving function and work participation, and/or improving quality of life: Medication(s): Requested Prescriptions Signed Prescriptions Disp Refills HYDROcodone-acetaminophen (NORCO) 5-325 mg per tablet 105 tablet 0 Sig: Take 1 tablet by mouth every 6 hours as needed for up to 30 days. Do not start before April 19, 2023. HYDROcodone-acetaminophen (NORCO) 5-325 mg per tablet 105 tablet 0 Sig: Take 1 tablet by mouth every 6 hours as needed for pain for up to 30 days. Take one pill 4 times daily as needed for back pain Do not start before March 20, 2023. UDS from 11/05/2022 - reviewed and consistent with contents prescribed UDS was obtained today Additional Studies: none Referrals: Physical Therapy Functional Sabianism: Physical Therapy (Land-based) Depending on response to the above plan, consider: repeating RFA Interval History: Overall pain and functional disability since last visit: Unchanged New Complaints since last visit: No Pain Description: Timing: intermittent Character: aching and dull, stabbing pains at times Primary Location: neck thoracic and low back Radiation: none Exacerbating factors: any activity too long will make the pain worse. Relieving factors: laying down,medications and stretching Interferes with: physical activity, sitting, and reaching for shelves The patient reports numbness and tingling in her toes Patient stating her pain is better than it was from last month. Patient stating that she did not start physical therapy at this time because she has been sick and she could not start it. Patient states today she is starting physical therapy she has an appointment at 3:00 with the therapist. Patient states she is excited to see if this will help with the pain. Patient feels that the current medication regime is helping to manage her pain. States now she is able to do her activities of daily living with her current pain regime and making lifestyle modifications.. Current Pain Medications: Neuropathics: none NSAIDS: Muscle Relaxants: Topicals: Other Prescription or OTC Pain Medications: Opioids (when applicable): Date last refilled: Quantity supplied: Quantity remaining: Last taken: Tolerating Medication: Yes Medications helping improve ADL's and Self-care: Yes Current Therapies Attended: No Current Therapies Studies Obtained (when obtained, relevant findings reported below): None Notable Events During Course of Treatment: Data Reviewed: PAIN PROCEDURES: DATE PROCEDURE IMPROVEMENT 01/14/2023 TPI 30 % for a short time 11/07/2021 RFA Right C3-4,4-5,5-6 80% x 3 months 08/06/2021 RFA Left T5-6,6-7,7-8 50% x 1 week 07/23/2021 RFA Right T5-6,6-7,7-8 50% x 1 week SOCIAL HISTORY First cigarette in the morning is 10-15 minutes depending on how my breathing is . Previous attempts at cutting back, down to 10 cigarettes. Hardest cigarette to give up would be morning or after meals. She also smokes when she is stressed and states she has increased anxiety at times. She has recently had family stressors. She plans on attending smoking cessation program at [facility]. Allergies: ALLERGIES Allergen Reactions Bactrim [Sulfametho* Other: See Comments [place] sick, barely could breath. [place] deathly sick . GI upset Formoterol Shortness of Breath Glycopyrronium Shortness of Breath Penicillins Anaphylaxis As a child passed out in md office after PCN injection. Zoloft [Sertraline * GI Upset GI upset, chest burning, muscle ache Ipratropium Other: See Comments Blurry vision, abdominal cramping, tremor, headache. Tudorza Pressair [A* Other: See Comments Heart palpitations, blurry vision, abdominal cramping, tremor, headache. Aclidinium Other: See Comments Cymbalta [Duloxetin* Intolerance (more content not included)... [facility] 07-01-2023 Note HNO ID: [id number] Author: KEMAR BRANDON LPN Service: ? Author Type: LICENSED NURSE Type: Progress Notes Filed: 07/01/2023 16:08 Note Text: Review of Systems Constitutional: Positive for activity change and chills. Negative for fever and unexpected weight change. Gastrointestinal: Negative for bowel retention or incontinence Genitourinary: Positive for difficulty urinating. Negative for bladder retention or incontinence Musculoskeletal: Positive for arthralgias, back pain, neck pain and neck stiffness. Negative for gait problem, joint swelling and myalgias. Neurological: Positive for weakness, numbness and headaches. Psychiatric/Behavioral: Positive for sleep disturbance. Negative for dysphoric mood and suicidal ideas. The patient is nervous/anxious. [facility] 06-02-2023 Note . MICRO - Microbiology PROCEDURE: Urine Culture [*1] SOURCE: Urine, Clean Catch BODY SITE: COLLECTED DATE/TIME: 05/29/2023 21:38 EST RECEIVED DATE/TIME: 05/31/2023 08:17 EST START DATE/TIME: 05/31/2023 08:17 EST FREE TEXT SOURCE: FINAL REPORTS Final Report [] Verified Date/Time/Personnel: 06/02/2023 08:12 EST No growth at 48 hours. PRELIMINARY REPORTS Preliminary Report [] Verified Date/Time/Personnel: 06/01/2023 10:16 EST No growth to date Performing Locations *1: This test was performed at: [address], [facility] , [facility] ([place]) 05-29-2023 Note Discharge Instructions Thank you for allowing [facility] to assist you with your healthcare needs. The following is important discharge information regarding your hospital visit. Diagnosis from Today's Visit COPD exacerbation What to Do Next Instructions from Your Care Team Take prednisone and Z-Karan as prescribed. Follow-up with your primary care provider. Follow-up with your crepe maker. Return emergency department if you experience worsening symptoms, difficulty breathing, or any other care concern. Follow-up COVID, flu, RSV test. Your sodium was a little bit low at 131 given fluids here drink plenty fluids stay well-hydrated. Follow-up with your primary care provider. No qualifying data available. Post Acute Orders No qualifying data available. You Need to Schedule the Following Appointments Follow Up with Go to emergency room if symptoms worsen When Within 2-4 days Follow Up with ANKIT MARTINEZ MD When Within 2-4 days Where: [address] [place] [address]- Allergies Lyrica (Belching, Chest pain, SOB - Shortness of breath) gabapentin (cough, Anxiety, SOB - Shortness of breath) doxycycline ( feels spacey , Mental status) levoFLOXacin (Nausea, Dizziness, pressure in head) Bactrim (SOB - Shortness of breath) Cymbalta (Panic attack) Elavil (Chest pain, GI Upset) Incruse Ellipta (abdominal cramping, blurry vision, Headache, Tremor, Palpitations) Tudorza Pressair (abdominal cramping, blurry vision, Headache, Tremor, Palpitations) Zoloft (GI upset, Chest pain) ipratropium (abdominal cramping, blurry vision, Headache, Tremor) methylPREDNISolone (Myalgia) penicillin (as a child passes out in MD office after PCN injection) Medications Please ask your primary doctor or pharmacist before taking any other medication not listed, including over the counter drugs, herbal medications, vitamins and or supplements as they may interact with your home medications. What How Much When Instructions Last Dose New azithromycin (Zithromax 250 mg oral tablet) 1 tab(s) by mouth Once a day Duration: 5 Days follow directions on Z-Karan Printed Prescription Please take this list to your next doctor s visit. Bring all medications you take, including over the counter medications, herbals and other supplements with you to your doctor s visit. Patients and families are reminded to discard old lists and to update any records with all medication providers or retail pharmacies. Education Materials COPD Flare You have had a flare-up of your COPD. COPD (chronic obstructive pulmonary disease) is a common lung disease. It causes your airways to get irritated and narrower. This makes it harder for you to breathe. Emphysema and chronic bronchitis are both types of COPD. This is a long-term (chronic) condition. This means you always have it. Sometimes it gets worse. When this happens, it is called a flare-up. Symptoms of COPD People with COPD may have symptoms most of the time. In a flare-up, your symptoms get worse. These symptoms may mean you are having a flare-up: Shortness of breath, shallow or rapid breathing, or wheezing that gets worse Lung infection Cough that gets worse More mucus, thicker mucus or mucus of a different color Tiredness, less energy, or trouble doing your normal activities Fever Chest tightness Your symptoms don t get better even when you use your normal medicines, inhalers, and nebulizer Trouble talking You feel confused Causes of flare-ups Unfortunately, a flare-up can happen even if you did everything right. And even if you followed your healthcare provider s instructions. Some causes of flare-ups are: Smoking or secondhand smoke Colds, the flu, or respiratory infections Air pollution Sudden change in the weather Dust, irritating chemicals, or strong fumes Not taking your medicines as prescribed Home care Here are some things you can do at home to treat a flare-up: Try not to panic. This makes it harder to breathe, and keeps you from doing the right things. Don t smoke or be around others who are smoking. Try to drink more fluids than normal during a flare-up, unless your healthcare provider has told you not to because of heart and kidney problems. More fluids can help loosen the mucus. Use your inhalers and nebulizer, if you have one, as you have been told to. If you were given antibiotics, take them until they are used up or your provider tells you to stop. It s important to finish the antibiotics, even though you feel better. This will make sure the infection has cleared. If you were given prednisone or another steroid, finish it even if you feel better. Preventing a flare-up Flare-ups happen. But the best way to treat one is to prevent it before it starts. Here are some pointers: Don t smoke or be around others who are smoking. Take your medicines as discussed with your healthcare provider. Talk with your provider about getting a flu shot every year. Also find out if you need a pneumonia shot. If there is a weather advisory warning to stay indoors, try to stay inside when possible. Try to eat healthy, exercise, and get plenty of sleep. Try to stay away from things that normally set you off. These include dust, chemical fumes, hairsprays, or strong perfumes. Follow-up care Follow up with your healthcare provider, or as advised. If a culture was done, you will be told if your treatment needs to be changed. You can call as directed for the results. If X-rays were done, you will be told of any new findings that may affect your care. Call 911 Call 911 if any of these occur: You have trouble breathing You feel confused or it s hard to wake you up You faint or lose consciousness You have a rapid heart rate You have new pain in your chest, arm, shoulder, neck, or upper back When to seek medical advice Call your healthcare provider right away if any of these occur: Wheezing or shortness of breath gets worse You need to use your inhalers more often than normal without relief Fever of 100.4 F (38 C) or higher, or as directed by your healthcare provider Coughing up lots of dark-colored or bloody mucus (sputum) Chest pain with each breath You don't start to get better within 24 hours Swelling of your ankles gets worse Dizziness or weakness 8711-2178 [employer]. [address] [place] [address]. All rights reserved. This information is not intended as a substitute for professional medical care. Always follow your healthcare professional's instructions. Additional Information VACCINATE! IT SAVES LIVES! Members of the community who have not yet received the COVID-19 vaccine and would like to receive it can visit one of [facility] vaccine clinics. There are many vaccine clinic locations within the [facility]. For locations and available times, please visit www.gettheshot.coronavirus.[place] .gov/. It is important to note that some COVID mobile vaccine clinics are held outdoors and may be canceled in rainy or stormy conditions. To learn more about pediatric vaccinations (ages 5-11), we invite you to visit the [facility] webpage. https://www.[facility].org/ pages/5492-Adwst-Xxsqzxpmhwv-Fr mafikgjq-Mvnhy-Tjdgbynox.html To learn more about the COVID-19 vaccine, we invite you to visit the CDC website for a list of frequently asked questions. https://www.cdc.gov/coronavirus /2019-ncov/vaccines/faq.html [facility] Patient Portal Access Instructions: Stay connected with your healthcare team and access your personal medical information anytime with the [facility] Patient Portal. If you would like a full copy of your medical records please contact the [facility] Medical Records Department Wednesday through Wednesday between 8a.m. and 4:30p.m. Please follow the directions below to access the portal: 1.Access the email account you provided upon registration to the hospital.2.Look for an invitation email from [facility].3.Open the email and access the invitation link: Accept Invitation to [facility]4.Fill in the required mcconnell to create your account. Sign into [email or web address] with your username and password that you created in the above steps to stay up to date. You can then view a summary of results, a summary of your visits, and the ability to download your summaries to your computer or send the information securely to a physician. Remember that your healthcare information is confidential, so carefully consider who you will allow to register on the [facility] Patient Portal for access to your information. You can also access the [facility] Patient Portal on the [employer]. Simply click on Health Records under Health Data and then click on the [facility] logo. HOW TO SAFELY DISPOSE OF PRESCRIPTION MEDICATIONS Please use one of the following methods to safely dispose of your unused medications. 1.Use a drug disposal kit: the drug disposal pouch allows you to safely discard your old and unused drugs. Ask your nurse to give you one when you are discharged.2.Visit a local take-back location: Many local pharmacies and police departments have programs that collect old and unwanted prescription drugs. Call your local pharmacy or go to http://bit.[employer]/5Y2Hj3n to find one close to you.3.Make use of household items: Use cat litter or old coffee grounds to dispose medications if other options are not available. Mix your drugs with these household products, seal them in an airtight container and throw it into the garbage. Call [facility]: [phone] to be sure your drugs can be disposed of in this way. Some medicines may require a different approach.4.Never flush your medications down the toilet. IF YOU HAVE BEEN PRESCRIBED AN OPIOIDS FOR PAIN If you have been prescribed an opioid (such as hydrocodone, oxycodone or morphine), it is critical to understand the possible side effects and risks of opioid pain medications. Even when taken as directed, opioids can have several side effects including: Tolerance, meaning you might need to take more of a medication for the same pain relief. Nausea, vomiting and/or constipation. Sleepiness, dizziness, dry mouth, confusion, depression or itching. Physical dependence, meaning you have withdrawal symptoms when a medication is stopped ? this can develop within a few days. KNOW YOUR RESPONSIBILITIES It is important to know exactly how much and how often to take the opioid pain medications you are prescribed. Never take opioids in higher amounts or more often than prescribed. Do not combine opioids with alcohol or other drugs that cause drowsiness, such as benzodiazepines, also known as benzos, including diazepam and alprazolam, muscle relaxants or sleep aids. Never sell or share prescription opioids. This is illegal. Store opioids in a secure place and out of reach of others (including children, family, friends and visitors). The last page(s) of this document has been signed and retained as a CHART COPY Signatures Patient Education Materials COPD Flare Medication Leaflets My discharge plan and instructions have been reviewed and explained to me and I,JESSICA GLORIA understand my current condition and have read and understand these discharge instructions. I have received a written copy of the plan/instructions. If I have questions, I am aware that I should contact my doctor. Patient/Preschool Director Signature: Date/Time: Relationship to Patient: Witness Name/Signature: Date/Time: [facility] 05-29-2023 Hospital Discharg e instructions Patient Education 05/29/2023 21:28:15 COPD Flare COPD Flare You have had a flare-up of your COPD. COPD (chronic obstructive pulmonary disease) is a common lung disease. It causes your airways to get irritated and narrower. This makes it harder for you to breathe. Emphysema and chronic bronchitis are both types of COPD. This is a long-term (chronic) condition. This means you always have it. Sometimes it gets worse. When this happens, it is called a flare-up. Symptoms of COPD People with COPD may have symptoms most of the time. In a flare-up, your symptoms get worse. These symptoms may mean you are having a flare-up: Shortness of breath, shallow or rapid breathing, or wheezing that gets worse Lung infection Cough that gets worse More mucus, thicker mucus or mucus of a different color Tiredness, less energy, or trouble doing your normal activities Fever Chest tightness Your symptoms don t get better even when you use your normal medicines, inhalers, and nebulizer Trouble talking You feel confused Causes of flare-ups Unfortunately, a flare-up can happen even if you did everything right. And even if you followed your healthcare provider s instructions. Some causes of flare-ups are: Smoking or secondhand smoke Colds, the flu, or respiratory infections Air pollution Sudden change in the weather Dust, irritating chemicals, or strong fumes Not taking your medicines as prescribed Home care Here are some things you can do at home to treat a flare-up: Try not to panic. This makes it harder to breathe, and keeps you from doing the right things. Don t smoke or be around others who are smoking. Try to drink more fluids than normal during a flare-up, unless your healthcare provider has told you not to because of heart and kidney problems. More fluids can help loosen the mucus. Use your inhalers and nebulizer, if you have one, as you have been told to. If you were given antibiotics, take them until they are used up or your provider tells you to stop. It s important to finish the antibiotics, even though you feel better. This will make sure the infection has cleared. If you were given prednisone or another steroid, finish it even if you feel better. Preventing a flare-up Flare-ups happen. But the best way to treat one is to prevent it before it starts. Here are some pointers: Don t smoke or be around others who are smoking. Take your medicines as discussed with your healthcare provider. Talk with your provider about getting a flu shot every year. Also find out if you need a pneumonia shot. If there is a weather advisory warning to stay indoors, try to stay inside when possible. Try to eat healthy, exercise, and get plenty of sleep. Try to stay away from things that normally set you off. These include dust, chemical fumes, hairsprays, or strong perfumes. Follow-up care Follow up with your healthcare provider, or as advised. If a culture was done, you will be told if your treatment needs to be changed. You can call as directed for the results. If X-rays were done, you will be told of any new findings that may affect your care. Call 911 Call 911 if any of these occur: You have trouble breathing You feel confused or it s hard to wake you up You faint or lose consciousness You have a rapid heart rate You have new pain in your chest, arm, shoulder, neck, or upper back When to seek medical advice Call your healthcare provider right away if any of these occur: Wheezing or shortness of breath gets worse You need to use your inhalers more often than normal without relief Fever of 100.4 F (38 C) or higher, or as directed by your healthcare provider Coughing up lots of dark-colored or bloody mucus (sputum) Chest pain with each breath You don't start to get better within 24 hours Swelling of your ankles gets worse Dizziness or weakness [id number] [employer]. [address] [place] [address]. All rights reserved. This information is not intended as a substitute for professional medical care. Always follow your healthcare professional's instructions. Follow Up Care 05/29/2023 20:08:56 With:Go to emergency room if symptoms worsen Address:Unknown When:2-4 days With:ANKIT MARTINEZ MD Address: [address] [place] [id number] When:2-4 days [facility] 05-29-2023 Note ORIGINAL EXAMINATION: ONE XRAY VIEW OF THE CHEST 05/29/2023 9:10 pm COMPARISON: Audio Visual Manager view from CT chest May 26, 2022 HISTORY: ORDERING SYSTEM PROVIDED HISTORY: Reason for Exam: cough, sob FINDINGS: Cardiomediastinal silhouette is unchanged in size. Hyperinflation bilaterally. Costophrenic angles are sharp. No radiographic pneumothorax. Similar appearing scattered opacities on a background of reticular interstitial prominence and emphysema. Osseous structures grossly unchanged. IMPRESSION: No significant change from prior exam. Interpreted by: Scooby Menjivar Preliminary Report By: Scooby Menjivar Electronically signed By Scooby Menjivar Dictated Date: 05/29/2023 9:15:15 PM Prelim Date: 05/29/2023 9:16:34 PM Sign Date: 05/29/2023 9:16:34 PM Ordering Provider: RICARDO SOTOMAYOR [facility] 05-29-2023 Note Sinus or ectopic atr ial rhythm Ventricular trigeminy Borderline left axis deviation Electronic Signature: BRNA RICARDO DO 05/29/2023 20:29:49 [facility] 05-29-2023 SARS-CoV-2 (COVID-19) RNA MELVA+probe Ql (Nph) Negative *NA* (05/29/23 8:26 PM) AO Auto Urine SS 05-29-2023 Evaluation + Plan note Diagnostic Tests PendingUrine Culture 05/29/23 [facility] 05-13-2023 Miscellaneous Notes Patient was unable to schedule PT. New order input by Lisa. SALINAS for patient advising that new order was in chart and to call the [facility] at [phone] to schedule PT Jodee Daly documented in this encounter [facility] 05-13-2023 Note HNO ID: [id number] Author: Kemar Brandon LPN Service: ? Author Type: LICENSED NURSE Type: Progress Notes Filed: 05/13/2023 1:28 PM Note Text: Review of Systems Constitutional: Positive for activity change and chills. Negative for fever and unexpected weight change. Gastrointestinal: Negative for bowel retention or incontinence Genitourinary: Negative for difficulty urinating. Negative for bladder retention or incontinence Musculoskeletal: Positive for back pain, neck pain and neck stiffness. Negative for arthralgias, gait problem, joint swelling and myalgias. Neurological: Positive for weakness and numbness. Negative for headaches. Psychiatric/Behavioral: Positive for sleep disturbance. Negative for dysphoric mood and suicidal ideas. The patient is nervous/anxious. [facility] 05-13-2023 Note HNO ID: [id number] Author: Rebecca Baron APRN.CONFIDENTIAL SECRETARY Service: ? Author Type: Nurse Practitioner Type: Progress Notes Filed: 05/13/2023 1:28 PM Note Text: [facility] Today's Date: 05/13/2023 Last Visit: 03/05/2023 Name: Jessica Gloria : 1955 Purpose: Follow-up Patient Evaluation - This is an established patient, returning today for continued evaluation and management of the chief complaint noted below Chief complaint: neck, middle back and low back pain. Referring Clinician: Rebecca Baron Pertinent Past Medical History: COPD, REYNA, VILLAR, acid reflux, osteopenia, depression/anxiety, back pain Pertinent Past Surgeries: none Plan at last visit: Plan: Jessica Gloria would benefit from the following to reach personal goals for decreasing pain, improving function and work participation, and/or improving quality of life: Medication(s): Requested Prescriptions Signed Prescriptions Disp Refills HYDROcodone-acetaminophen (NORCO) 5-325 mg per tablet 105 tablet 0 Sig: Take 1 tablet by mouth every 6 hours as needed for up to 30 days. Do not start before April 19, 2023. HYDROcodone-acetaminophen (NORCO) 5-325 mg per tablet 105 tablet 0 Sig: Take 1 tablet by mouth every 6 hours as needed for pain for up to 30 days. Take one pill 4 times daily as needed for back pain Do not start before March 20, 2023. UDS from 11/05/2022 - reviewed and consistent with contents prescribed UDS was obtained today Additional Studies: none Referrals: Physical Therapy Functional Sabianism: Physical Therapy (Land-based) Depending on response to the above plan, consider: repeating RFA Interval History: Overall pain and functional disability since last visit: Worse New Complaints since last visit: No Pain Description: Timing: intermittent Character: aching and dull, shooting stabbing pains at times Primary Location: neck thoracic and low back Radiation: none Exacerbating factors: any activity too long will make the pain worse. Relieving factors: laying down,medications and stretching Interferes with: physical activity, sitting, and reaching for shelves The patient reports numbness and tingling in her toes Pt states she has had more pain lately. Pt states she feels the anxiety may be part of her pain. Pt also states she got a new puppy and she is more active and she thinks that is making the pain worse. Pt states she will lay down and regroup and that will help with the pain. Pt states she is doing good with the current medication regime. Pt was ordered PT but did not start yet Current Pain Medications: Neuropathics: none NSAIDS: Muscle Relaxants: Topicals: Other Prescription or OTC Pain Medications: Opioids (when applicable): Date last refilled: Quantity supplied: Quantity remaining: Last taken: Tolerating Medication: Yes Medications helping improve ADL's and Self-care: Yes Current Therapies Attended: No Current Therapies Studies Obtained (when obtained, relevant findings reported below): None Notable Events During Course of Treatment: Data Reviewed: PAIN PROCEDURES: DATE PROCEDURE IMPROVEMENT 01/14/2023 TPI 30 % for a short time 11/07/2021 RFA Right C3-4,4-5,5-6 80% x 3 months 08/06/2021 RFA Left T5-6,6-7,7-8 50% x 1 week 07/23/2021 RFA Right T5-6,6-7,7-8 50% x 1 week SOCIAL HISTORY First cigarette in the morning is 10-15 minutes depending on how my breathing is . Previous attempts at cutting back, down to 10 cigarettes. Hardest cigarette to give up would be morning or after meals. She also smokes when she is stressed and states she has increased anxiety at times. She has recently had family stressors. She plans on attending smoking cessation program at [facility]. Allergies: ALLERGIES Allergen Reactions Bactrim [Sulfametho* Other: See Comments [place] sick, barely could breath. [place] deathly sick . GI upset Formoterol Shortness of Breath Glycopyrronium Shortness of Breath Penicillins Anaphylaxis As a child passed out in md office after PCN injection. Zoloft [Sertraline * GI Upset GI upset, chest burning, muscle ache Ipratropium Other: See Comments Blurry vision, abdominal cramping, tremor, headache. Tudorza Pressair [A* Other: See Comments Heart palpitations, blurry vision, abdominal cramping, tremor, headache. Aclidinium Other: See Comments Cymbalta [Duloxetin* Intolerance panic Duloxetine Hcl Unknown Other reaction(s): Panic attack Elavil [Amitriptyli* Intolerance GI upset, chest burning Fluticasone-Umeclid* Other: See Comments Gabapenti (more content not included)... [facility] 05-13-2023 History of Presen t illness Narrative Review of Systems Constitutional: Positive for activity change and chills. Negative for fever and unexpected weight change. Gastrointestinal: Negative for bowel retention or incontinence Genitourinary: Negative for difficulty urinating. Negative for bladder retention or incontinence Musculoskeletal: Positive for back pain, neck pain and neck stiffness. Negative for arthralgias, gait problem, joint swelling and myalgias. Neurological: Positive for weakness and numbness. Negative for headaches. Psychiatric/Behavioral: Positive for sleep disturbance. Negative for dysphoric mood and suicidal ideas. The patient is nervous/anxious. Images from the original note were not included. [facility] Today's Date: 05/13/2023 Last Visit: 03/05/2023 Name: Jessica Gloria : 1955 Purpose: Follow-up Patient Evaluation - This is an established patient, returning today for continued evaluation and management of the chief complaint noted below Chief complaint: neck, middle back and low back pain. Referring Clinician: Rebecca Baron Pertinent Past Medical History: COPD, REYNA, VILLAR, acid reflux, osteopenia, depression/anxiety, back pain Pertinent Past Surgeries: none Plan at last visit: Plan: Jessica Gloria would benefit from the following to reach personal goals for decreasing pain, improving function and work participation, and/or improving quality of life: Medication(s): Requested Prescriptions Signed Prescriptions Disp Refills HYDROcodone-acetaminophen (NORCO) 5-325 mg per tablet 105 tablet 0 Sig: Take 1 tablet by mouth every 6 hours as needed for up to 30 days. Do not start before April 19, 2023. HYDROcodone-acetaminophen (NORCO) 5-325 mg per tablet 105 tablet 0 Sig: Take 1 tablet by mouth every 6 hours as needed for pain for up to 30 days. Take one pill 4 times daily as needed for back pain Do not start before March 20, 2023. UDS from 11/05/2022 - reviewed and consistent with contents prescribed UDS was obtained today Additional Studies: none Referrals: Physical Therapy Functional Sabianism: Physical Therapy (Land-based) Depending on response to the above plan, consider: repeating RFA Interval History: Overall pain and functional disability since last visit: Worse New Complaints since last visit: No Pain Description: Timing: intermittent Character: aching and dull, shooting stabbing pains at times Primary Location: neck thoracic and low back Radiation: none Exacerbating factors: any activity too long will make the pain worse. Relieving factors: laying down,medications and stretching Interferes with: physical activity, sitting, and reaching for shelves The patient reports numbness and tingling in her toes Pt states she has had more pain lately. Pt states she feels the anxiety may be part of her pain. Pt also states she got a new puppy and she is more active and she thinks that is making the pain worse. Pt states she will lay down and regroup and that will help with the pain. Pt states she is doing good with the current medication regime. Pt was ordered PT but did not start yet Current Pain Medications: Neuropathics: none NSAIDS: Muscle Relaxants: Topicals: Other Prescription or OTC Pain Medications: Opioids (when applicable): Date last refilled: Quantity supplied: Quantity remaining: Last taken: Tolerating Medication: Yes Medications helping improve ADL's and Self-care: Yes Current Therapies Attended: No Current Therapies Studies Obtained (when obtained, relevant findings reported below): None Notable Events During Course of Treatment: Data Reviewed: PAIN PROCEDURES: DATE PROCEDURE IMPROVEMENT 01/14/2023 TPI 30 % for a short time 11/07/2021 RFA Right C3-4,4-5,5-6 80% x 3 months 08/06/2021 RFA Left T5-6,6-7,7-8 50% x 1 week 07/23/2021 RFA Right T5-6,6-7,7-8 50% x 1 week SOCIAL HISTORY First cigarette in the morning is 10-15 minutes depending on how my breathing is . Previous attempts at cutting back, down to 10 cigarettes. Hardest cigarette to give up would be morning or after meals. She also smokes when she is stressed and states she has increased anxiety at times. She has recently had family stressors. She plans on attending smoking cessation program at [facility]. Allergies: ALLERGIES Allergen Reactions Bactrim [Sulfametho* Other: See Comments [place] sick, barely could breath. [place] deathly sick . GI upset Formoterol Shortness of Breath Glycopyrronium Shortness of Breath Penicillins Anaphylaxis As a child passed out in md office after PCN injection. Zoloft [Sertraline * GI Upset GI upset, chest burning, muscle ache Ipratropium Other: See Comments Blurry vision, abdominal cramping, tremor, headache. Tudorza Pressair [A* Other: See Comments Heart palpitations, blurry vision, abdominal cramping, tremor, headache. Aclidinium Other: See Comments Cymbalta [Duloxetin* Intolerance panic Duloxetine Hcl Unknown Other reaction(s): Panic attack Elavil [Amitriptyli* Intolerance GI upset, chest burning Fluticasone-Umeclid* Other: See Comments Gabapentin Intolerance Cough, sob, anxiety, increased drowsiness Incruse Ellipta [Um* Other: See Comments Heart palpitations, blurry vision, abdominal cramping, tremor, headache. Levofloxacin Other: See Comments pressure in head. Feel like she is going to throw up and pass out. Lyrica [Pregabalin] Other: See Comments Chest discomfort,burping,sob Methylprednisone Myalgia Sertraline GI Upset Sulfamethoxazole Other: See Comments Trimethoprim Other: See Comments Doxycycline Mental Status Change Makes her feel spacey . If given abx prefer to use this one out of all with the least amount of side effects. Umeclidinium [place] Unknown, Other: See Comments Other reaction(s): abdominal cramping, blurry vision, Tremor INTAKE PAIN ASSESSMENT 04/05/2023 05/13/2023 Are you having pain associated with your visit today? No Yes, Provider notified Pain Scales - Verbal (Numeric Rating or Visual Analog Scale) Pain Level - 6 Pain Location - Neck Description - Radiating;Aching;Stabbing Duration Amount of Time - - Duration Units - Years Frequency - Intermittent Intervention/Comfort measure - Medication;Reposition;Relaxatio n Comments - - Pain Assessment - - Compliance: PDMP website checked and validated on 05/13/2023 by Rebecca Baron APRN.CONFIDENTIAL SECRETARY All prescriptions have been APPROPRIATELY filled. No suspicious activity was identified. Recent Drug screens: AG SPINE COMBINATION 09/30/2021 02/04/2022 04/09/2022 08/20/2022 11/05/2022 01/14/2023 03/05/2023 Questionnaire - - - - - - - Completed Date - - - - - - - Questionnaire URINE DRUG SCREEN URINE DRUG SCREEN URINE DRUG SCREEN URINE DRUG SCREEN URINE DRUG SCREEN URINE DRUG SCREEN URINE DRUG SCREEN Completed Date 09/30/2021 02/04/2022 04/09/2022 08/20/2022 11/05/2022 01/14/2023 03/05/2023 Comments - - - - - lab work - Questionnaire NA/OIC - - NA/OIC - - NA/OIC Completed Date 09/30/2021 - - 08/20/2022 - - 03/05/2023 Questionnaire - - - - Opiod Risk Tool - - Completed Date - - - - 11/05/2022 - - Comments - - - - 1 - - MEDICATION NAME Hydrocodone STRENGTH 5 LAST FILL DATE 04/19/2023 DATE LAST DOSE TAKEN 05/13/2023 QUANTITY FILLED 105 QUANTITY REMAINING 18 (All drug screens are appropriate unless indicated otherwise) Risk Assessment: ERIKA-7: No flowsheet data found.(0-4) minimal anxiety, (5-9) mild anxiety, (10-14) moderate anxiety, (15-21) severe anxiety PHQ-9: No flowsheet data found.(0-4) minimal depression, (5-9) mild depression, (10-14) moderate depression, (15-19) moderately severe depression, (20-27) severe depression Diagnostic Studies: Relevant Imaging: MRI Spine Report MRI THORACIC SPINE WO IVCON Exam End: 12/30/2021 3:01 PM (Final result) Narrative: * * *Final Report* * * DATE OF EXAM: Dec 30 2021 3:01PM DEREK [email or web address] - MRI THORACIC SPINE WO IVCON / PROCEDURE REASON: Radiculopathy, thoracic region * * * * Physician Interpretation * * * * EXAMINATION: MRI CERVICAL SPINE WO IVCON, MRI THORACIC SPINE WO IVCON CLINICAL HISTORY: Cervical and thoracic radiculopathy. TECHNIQUE: Routine cervical and thoracic spine MR protocol without gadolinium. MQ: [id number] COMPARISON: None. RESULT: CERVICAL: Counting reference: Craniocervical junction. Anatomic Variants: None. Localizer images: Patchy infiltrates are noted in the upper lobes there appears to be thickening or small amount of fluid in the right major fissure on the dining service worker images but evaluation of the lungs is limited by MRI. Alignment: Accentuation of the normal cervical lordosis likely secondary to accentuated thoracic kyphosis. Craniocervical junction: Alignment at the craniocervical junction is within normal limits. Cord: The cervical spinal cord is within normal limits of signal intensity and morphology. Bone marrow signal/fracture: No evidence of pathologic marrow infiltration. No evidence of prior fracture. Cervical soft tissues: The paraspinal soft tissues are within normal limits. C2-C3: Canal and foramina are patent. C3-C4: Mild asymmetric facet degenerative changes. Canal and foramina remain patent. C4-C5: Canal and foramina are patent. C5-C6: Mild asymmetric facet degenerative changes. Canal and foramina remain patent. C6-C7: Canal and foramina are patent. C7-T1: Canal and foramina are patent. THORACIC: Counting reference: Lumbosacral junction. For the purposes of this report, L4-5 is considered the level of the iliac crest and assume there are 5 lumbar-type vertebrae. Anatomic variant: None. Audio Visual Manager (topogram) images: No additional findings. Alignment: Accentuation of the normal thoracic kyphosis. Mild to moderate disc space narrowing is noted in the midthoracic spine. Cord: The thoracic spinal cord and conus are within normal limits of signal intensity and morphology. Bone marrow signal/fracture: No evidence of pathologic marrow infiltration. No evidence of prior fracture. Thoracic soft tissues: The paraspinal soft tissues are within normal limits. Canal and foramina: Thoracic canal and foramina are patent. Impression: IMPRESSION: Mild cervical and thoracic degenerative disc disease without significant canal or foraminal stenosis. Cervical Anatomic Variant: None. Assume 7 cervical vertebrae with counting from the craniocervical junction. Anatomic Thoracic/Lumbar Variant: None. L4-5 is considered the level of the iliac crest and assume there are 5 lumbar-type vertebrae. Hand Umbrella Tipper: PEEWEE Transcribe Date/Time: Dec 30 2021 3:18P Dictated by : RACHEAL MCKEON MD This examination was interpreted and the report reviewed and electronically signed by: RACHEAL MCKEON MD on Dec 30 2021 3:28PM EST Electrodiagnostic Study (EMG): None Recent Labs: Creatinine Date Value Ref Range Status 04/02/2023 0.67 0.58 - 0.96 mg/dL Final No results found for: EGFR No results found for: PCGLUCOSE Current Medications, Past Medical History, Past Surgical History, Family History, Social History and Review of Systems: On today's date, noted above, I have confirmed and edited as necessary, the PFSH and ROS obtained by others. Physical Exam: 05/13/23 0858 Pulse: 75 Resp: 18 SpO2: 96% Constitutional: General: She is not in acute distress. Appearance: She is not ill-appearing. HENT: Head: Normocephalic and atraumatic. Eyes: Conjunctiva/sclera: Conjunctivae normal. Cardiovascular: Pulses: Normal pulses. Pulmonary: Effort: Pulmonary effort is normal. No respiratory distress. Musculoskeletal: Cervical back: Tenderness present. Pain with movement present. Decreased range of motion. Thoracic back: Tenderness present. Decreased range of motion. Scoliosis (kyphosis noted) present. Lumbar back: Tenderness and bony tenderness present. Decreased range of motion. Skin: General: Skin is warm and dry. Neurological: Mental Status: She is alert and oriented to person, place, and time. Psychiatric: Mood and Affect: Mood and affect normal. Behavior: Behavior normal. Behavior is cooperative IMPRESSION: 67 year old female presents with complaint(s) of Neck thoracic and low back pain as described above. Patient did not start physical therapy at this point. This was discussed at length and patient agrees to attempt physical therapy and if no relief may consider an MRI depending upon results of the therapy.. At this point patient cannot state what is bothering her more. Patient states she is doing well with her current medication regime and we will continue that at this point. Diagnoses: (M47.814) Thoracic spondylosis without myelopathy (M47.817) Lumbosacral spondylosis without myelopathy (M47.812) Cervical spondylosis without myelopathy (G89.4) Chronic pain syndrome PLAN: Jessica Gloria would benefit from the following to reach personal goals for decreasing pain, improving function and work participation, and/or improving quality of life: Medications: Requested Prescriptions Signed Prescriptions Disp Refills HYDROcodone-acetaminophen (NORCO) 5-325 mg per tablet 105 tablet 0 Sig: Take 1 tablet by mouth every 6 hours as needed for up to 30 days. Do not start before June 18, 2023. HYDROcodone-acetaminophen (NORCO) 5-325 mg per tablet 105 tablet 0 Sig: Take 1 tablet by mouth every 6 hours as needed for pain for up to 30 days. Take one pill 4 times daily as needed for back pain Do not start before May 19, 2023. UDS from 03/03/2023 - reviewed and consistent with contents prescribed Interventional Procedures: None Studies: None Functional Sabianism: NONE Physical Therapy Consultation (Land-Based) Referrals: No additional considerations at present Follow-up: 2 months with Physician or [facility] In Person Depending on response to the above plan, consider: mri Patient Education, Compliance and Clinic Policies Reviewed and/or Discussed Today: None Compliance: Safety Checklist: Are you taking proper precautions to safe guard your medication? Yes Taking the medications as prescribed? Yes Getting pain medications from another physician? No Obtaining pain medication from another source? No Sharing medications with friends/family? No Quality of life improved as a result of taking these medications? Yes Any side effect with this medication? No Justification for Continued Opioid Care: Adequate analgesia? Yes Aberrant drug seeking behavior? No Adverse reactions? No Medications improve quality of life? Yes Attribution: In addition to reviewing the information noted above, some elements copied from my most recent clinical note(s), including the physical exam (completed in entirety today), and the impression and plan sections, have been updated where appropriate. All reflect current medical decision making from today's date. Rebecca Baron APRN.DANIELLA [facility] documented in this encounter [facility] 04-05-2023 Note HNO ID: [id number] Author: Ankit Martinez MD Service: ? Author Type: Physician Type: Progress Notes Filed: 04/05/2023 2:55 PM Note Text: Chief Complaint Patient presents with: Follow Up: 3-4 month follow up Immunizations: Flu vaccination HPI Jessica Gloria is a 67 year old female who presents here today for follow up. Pt here for 3-4 month follow up. Went fishing on [place] last week. Continues to smoke 1 ppd. Again encouraged cessation. No bowel, Gi, or urinary issues. Hx of kidney stones, admits at times she has some pain in the bladder and melissa flank pain. GERD sx controlled with Pepcid 20 mg BID prn. Uses Miralax for constipation as needed. She states she has lost some weight, she isn't able to eat a lot at once, she states it feels like it is just sitting on her stomach. Some days she only eats a little at breakfast and then not again till supper. She does get nauseated at time but has noticed some gagging episodes that started about 1 month ago. ERIKA/Depression: Has a lot of fearfulness about taking medications however agreed to taking Paxil 10 mg daily last visit. She states that she tried the Paxil again but stopped it due to it made her feel funny, she doesn't like to the way she feels on it. She feels she is able to manage the depression and anxiety without medication. Trying to look at the positives in life and laugh more. She used Zoloft but it caused stomach upset, Cymbalta caused panic attacks and made her feel worse. Pain: Chronic back; follows with Dr. Florez, Pain Management. Is on Engelhard 5-325 mg 1 pill every 6 hours prn. Palpitations: Stable, taking Metoprolol 25 mg daily. She feels that the palpitations are good but her heart rate just still feels fast even with the Metoprolol. States at times when she stands up her legs get weak or feel like Jello . Lipid: Tries to watch diet, no regular exercise. Has Crestor 10 mg daily to take but never started due to fear of muscle aches. Her recent cholesterol result was 198. COPD: COPD: Follows with Pulmonary, Dr. Owen at [facility] for this as well as lung nodules. Uses inhalers daily rescue inhalers, nebulizer tx and 2 L of oxygen at night and during day prn. Osteoporosis: Has not started Fosamax 70 mg weekly. She stated that it is inconvenient for her, she needs to use her inhaler when she first gets up. The Fosamax she can't drink her coffee and can't lay back down after she takes it. Past medical history, appointments, medications, allergies reviewed. Previous Medical History PAST MEDICAL HISTORY Diagnosis Date Acid reflux Back pain COPD (chronic obstructive pulmonary disease) ([facility]) 2016 FEV1 0.95L, 40% pred. COPD (chronic obstructive pulmonary disease) ([facility]) Kidney stones Osteopenia frax score 4% hip fracture risk 2016 start fosamax repeat imaging 1-2 years Unspecified asthma(493.90) Previous Surgical History PAST SURGICAL HISTORY Procedure Laterality Date COLONOSCOPY 01/20/2022 COLONOSCOPY FLX DX W/COLLJ SPEC WHEN PFRMD 05/27/2011 Colonoscopy CYSTO CALIBRATION DILAT URTL STRIX/STENOSIS N/A 11/22/2018 EGD W/O BRSH SPEC VARICIES INJ 01/20/2022 LAPAROSCOPY SURG CHOLECYSTECTOMY 2005 Cholecystectomy, lap LIG/TRNSXJ FLP TUBE ABDL/VAG APPR UNI/BI Tubal ligation LITHOTRIPSY XTRCORP SHOCK WAVE Lithotripsy LUNG BIOPSY 2021 PAST SURGICAL HISTORY OF 1981 lung biopsy PAST SURGICAL HISTORY OF Right 05/2020 CT guided biopsy on Lung. Dr. Owen SLTOMMY OPER STRES INCONTINENCE 08/2011 Family History FAMILY HISTORY Problem Relation Age of Onset Blood Disease Father Blood Clots Heart Father Kidney Disease Sister Diabetes Sister Hypertension Sister other (Blood Clots) Sister COPD Sister Emphysema Sister other (Blood Clots) Sister Hypertension Sister Hypertension Brother Diabetes Brother Heart Attack Brother Hypertension Brother Kidney Disease Brother Diabetes Brother Cancer Maternal Grandmother Lung other (Other) Paternal Grandmother with TB. Did not live with patient. Heart Daughter Hypertension Son Colon Cancer Other Nephew No Ocular Disease No Family History Patient Allergies ALLERGIES Allergen Reactions Bactrim [Sulfametho* Other: See Comments [place] sick, barely could breath. [place] deathly sick . GI upset Formoterol Shortness of Breath Glycopyrronium Shortness of Breath Penicillins Anaphylaxis As a child passed out in md office after PCN injection. Zoloft [Sertraline * GI Upset GI upset, chest burning, muscle ache Ipratropium Other: See Comments Blurry vision, abdominal cramping, tremor, headache. Tudorza Pressair [A* Other: See Comments Heart palpitations, blurry vision, abdominal cramping, tremor, headache. Aclidinium Other: See Comments Cymbalta [Duloxetin* Intolerance panic Duloxetine Hcl Unknown Other reaction(s): Panic attack Elavil [Amitriptyli* Intolerance GI upset, chest burning (more content not included)... [facility] 04-05-2023 History of Presen t illness Narrative Chief Complaint Patient presents with: Follow Up: 3-4 month follow up Immunizations: Flu vaccination HPI Jessica Gloria is a 67 year old female who presents here today for follow up. Pt here for 3-4 month follow up. Went fishing on [place] last week. Continues to smoke 1 ppd. Again encouraged cessation. No bowel, Gi, or urinary issues. Hx of kidney stones, admits at times she has some pain in the bladder and melissa flank pain. GERD sx controlled with Pepcid 20 mg BID prn. Uses Miralax for constipation as needed. She states she has lost some weight, she isn't able to eat a lot at once, she states it feels like it is just sitting on her stomach. Some days she only eats a little at breakfast and then not again till supper. She does get nauseated at time but has noticed some gagging episodes that started about 1 month ago. ERIKA/Depression: Has a lot of fearfulness about taking medications however agreed to taking Paxil 10 mg daily last visit. She states that she tried the Paxil again but stopped it due to it made her feel funny, she doesn't like to the way she feels on it. She feels she is able to manage the depression and anxiety without medication. Trying to look at the positives in life and laugh more. She used Zoloft but it caused stomach upset, Cymbalta caused panic attacks and made her feel worse. Pain: Chronic back; follows with Dr. Florez, Pain Management. Is on Engelhard 5-325 mg 1 pill every 6 hours prn. Palpitations: Stable, taking Metoprolol 25 mg daily. She feels that the palpitations are good but her heart rate just still feels fast even with the Metoprolol. States at times when she stands up her legs get weak or feel like Jello . Lipid: Tries to watch diet, no regular exercise. Has Crestor 10 mg daily to take but never started due to fear of muscle aches. Her recent cholesterol result was 198. COPD: COPD: Follows with Pulmonary, Dr. Owen at [facility] for this as well as lung nodules. Uses inhalers daily rescue inhalers, nebulizer tx and 2 L of oxygen at night and during day prn. Osteoporosis: Has not started Fosamax 70 mg weekly. She stated that it is inconvenient for her, she needs to use her inhaler when she first gets up. The Fosamax she can't drink her coffee and can't lay back down after she takes it. Past medical history, appointments, medications, allergies reviewed. Previous Medical History PAST MEDICAL HISTORY Diagnosis Date Acid reflux Back pain COPD (chronic obstructive pulmonary disease) ([facility]) 2016 FEV1 0.95L, 40% pred. COPD (chronic obstructive pulmonary disease) ([facility]) Kidney stones Osteopenia frax score 4% hip fracture risk 2017 start fosamax repeat imaging 1-2 years Unspecified asthma(493.90) Previous Surgical History PAST SURGICAL HISTORY Procedure Laterality Date COLONOSCOPY 01/20/2022 COLONOSCOPY FLX DX W/COLLJ SPEC WHEN PFRMD 05/27/2011 Colonoscopy CYSTO CALIBRATION DILAT URTL STRIX/STENOSIS N/A 11/22/2018 EGD W/O BRSH SPEC VARICIES INJ 01/20/2022 LAPAROSCOPY SURG CHOLECYSTECTOMY 2005 Cholecystectomy, lap LIG/TRNSXJ FLP TUBE ABDL/VAG APPR UNI/BI Tubal ligation LITHOTRIPSY XTRCORP SHOCK WAVE Lithotripsy LUNG BIOPSY 2021 PAST SURGICAL HISTORY OF 1982 lung biopsy PAST SURGICAL HISTORY OF Right 05/2020 CT guided biopsy on Lung. Dr. Owen SLTOMMY OPER STRES INCONTINENCE 08/2011 Family History FAMILY HISTORY Problem Relation Age of Onset Blood Disease Father Blood Clots Heart Father Kidney Disease Sister Diabetes Sister Hypertension Sister other (Blood Clots) Sister COPD Sister Emphysema Sister other (Blood Clots) Sister Hypertension Sister Hypertension Brother Diabetes Brother Heart Attack Brother Hypertension Brother Kidney Disease Brother Diabetes Brother Cancer Maternal Grandmother Lung other (Other) Paternal Grandmother with TB. Did not live with patient. Heart Daughter Hypertension Son Colon Cancer Other Nephew No Ocular Disease No Family History Patient Allergies ALLERGIES Allergen Reactions Bactrim [Sulfametho* Other: See Comments [place] sick, barely could breath. [place] deathly sick . GI upset Formoterol Shortness of Breath Glycopyrronium Shortness of Breath Penicillins Anaphylaxis As a child passed out in md office after PCN injection. Zoloft [Sertraline * GI Upset GI upset, chest burning, muscle ache Ipratropium Other: See Comments Blurry vision, abdominal cramping, tremor, headache. Tudorza Pressair [A* Other: See Comments Heart palpitations, blurry vision, abdominal cramping, tremor, headache. Aclidinium Other: See Comments Cymbalta [Duloxetin* Intolerance panic Duloxetine Hcl Unknown Other reaction(s): Panic attack Elavil [Amitriptyli* Intolerance GI upset, chest burning Fluticasone-Umeclid* Other: See Comments Gabapentin Intolerance Cough, sob, anxiety, increased drowsiness Incruse Ellipta [Um* Other: See Comments Heart palpitations, blurry vision, abdominal cramping, tremor, headache. Levofloxacin Other: See Comments pressure in head. Feel like she is going to throw up and pass out. Lyrica [Pregabalin] Other: See Comments Chest discomfort,burping,sob Methylprednisone Myalgia Sertraline GI Upset Sulfamethoxazole Other: See Comments Trimethoprim Other: See Comments Doxycycline Mental Status Change Makes her feel spacey . If given abx prefer to use this one out of all with the least amount of side effects. Umeclidinium [place] Unknown, Other: See Comments Other reaction(s): abdominal cramping, blurry vision, Tremor Current Medications Current Outpatient Medications on File Prior to Visit Medication Sig [START ON 04/19/2023] HYDROcodone-acetaminophen (NORCO) 5-325 mg per tablet Take 1 tablet by mouth every 6 hours as needed for up to 30 days. Do not start before April 19, 2023. HYDROcodone-acetaminophen (NORCO) 5-325 mg per tablet Take 1 tablet by mouth every 6 hours as needed for pain for up to 30 days. Take one pill 4 times daily as needed for back pain Do not start before March 20, 2023. metoprolol succinate ER (TOPROL XL) 25 mg 24 hr tablet Take 1 tablet by mouth once daily. famotidine (PEPCID) 20 mg tablet Take 1 tablet by mouth twice daily. polyethylene glycol 3350 (MIRALAX) 17 gram/dose powder Take 17 g by mouth once daily. As needed for constipation loratadine (CLARITIN) 10 mg tablet Take 1 tablet by mouth once daily as needed. FOR ALLERGY SYMPTOMS hydrOXYzine HCl (ATARAX) 25 mg tablet Take 1 tablet by mouth twice daily as needed for anxiety. PARoxetine (PAXIL) 10 mg tablet take 1 tablet by mouth once daily alendronate (FOSAMAX) 70 mg tablet Take 1 tablet by mouth one time a week. In AM with cup of water on empty stomach. Nothing else by mouth and stay upright for 30 min. rosuvastatin (CRESTOR) 10 mg tablet take 1 tablet by mouth at bedtime COMBIVENT RESPIMAT 20-100 mcg/actuation inhaler ALBUTEROL SULFATE HFA INHALATION Inhale as instructed. fluticasone (FLONASE) 50 mcg/actuation nasal spray place 1 spray into each nostril twice a day Nebulizer Accessories kit 4 kits per month. Dx J44.9 albuterol (PROVENTIL) 2.5 mg /3 mL (0.083 %) nebulizer solution Use 3 mL via nebulizer every 4 hours as needed for Wheezing/Shortness of Breath. Use over 5-15minutes. Cholecalciferol, Vitamin D3, 2,000 unit cap Take 1 capsule by mouth once daily. DULERA 200-5 mcg/actuation inhaler Inhale 2 Puffs as instructed twice daily. No current facility-administered medications on file prior to visit. Social History Social History Tobacco Use Smoking status: Every Day Packs/day: 1.00 Years: 33.00 Additional pack years: 0.00 Total pack years: 33.00 Types: Cigarettes Start date: 04/10/1981 Smokeless tobacco: Never Tobacco comments: smoking 1 ppd. Vaping Use Vaping Use: Never used Substance Use Topics Alcohol use: No Drug use: No EXAM: BP 118/70 Pulse 84 Resp 16 Wt 45.3 kg (99 lb 14.4 oz) LMP (LMP Unknown) BMI 18.27 kg/m General Appearance: Well appearing, alert, in no acute distress, well-hydrated, well nourished.. Lungs: Lungs clear to auscultation. No wheezing, rhonchi, rales.. Heart: RRR without murmur, gallop, or rubs. No ectopy. Health Maintenance List Alpha-1 Antitrypsin Deficiency Screening Never done Shingrix Vaccine(1 of 2) Never done Pneumococcal Vaccine: 65+(2 - PCV) due on 08/25/2014 Lung Cancer Screening due on 11/25/2019 DTaP,Tdap,Td Vaccine(2 - Td or Tdap) due on 05/15/2021 Influenza Vaccine(1) due on 02/26/2023 Covid-19 Vaccine(3 - Moderna series) due on 10/20/2023 Mammogram Screening due on 07/20/2023 Annual PCP Team Chronic Disease Visit due on 12/22/2023 Diabetes Screening due on 06/30/2025 Lipid Screening due on 04/03/2027 Colorectal Cancer Screening due on 01/21/2032 Bone Density Screening Completed Spirometry Completed Advance Directive Discussion Completed Hepatitis C Screening Completed HIV Screening Completed Pap Testing Discontinued Data reviewed Appointment on 04/02/2023 Component Date Value Protein, Total 04/02/2023 6.7 Albumin 04/02/2023 4.3 Calcium, Total 04/02/2023 9.3 Bilirubin, Total 04/02/2023 0.3 Alkaline Phosphatase 04/02/2023 73 AST 04/02/2023 23 ALT 04/02/2023 10 Glucose 04/02/2023 91 BUN 04/02/2023 10 Creatinine 04/02/2023 0.67 Sodium 04/02/2023 135 (L) Potassium 04/02/2023 4.2 Chloride 04/02/2023 96 (L) CO2 04/02/2023 25 Anion Gap 04/02/2023 14 Estimated Glomerular Curry* 04/02/2023 97 Cholesterol, Total 04/02/2023 198 Triglyceride 04/02/2023 101 HDL Cholesterol 04/02/2023 71 Non HDL Cholesterol 04/02/2023 127 Fasting Time 04/02/2023 12 VLDL Cholesterol 04/02/2023 20 TC:HDL Ratio 04/02/2023 2.79 LDL Cholesterol 04/02/2023 107 (H) LDL:HDL Ratio 04/02/2023 1.51 ASSESSMENT/PLAN: 1. Dyslipidemia - ICD9: 272.4, ICD10: E78.5 (primary diagnosis) - Controlled - Counseled on healthy diet and regular exercise - D/C Crestor 2. Chronic obstructive pulmonary disease, unspecified COPD type (HCC) - ICD9: 496, ICD10: J44.9 Continue current medications. Continue with Pulm 3. Smoker - ICD9: 305.1, ICD10: F17.200 - Cessation encouraged. - Physiologic and physical aspects of tobacco addiction as well as strategies for quitting were discussed. - Counseling was given focusing on the harmful effects of this addiction especially given the patient's medical condition(s) which will be worsened because of the chemicals in tobacco. - Counseling was given 3-4 minutes. 4. Depression, unspecified depression type - ICD9: 311, ICD10: F32.A Stable D/C Paxil 5. Chronic low back pain without sciatica, unspecified back pain laterality - ICD9: 724.2, 338.29, ICD10: M54.50, G89.29 Continue current medications. Continue with Pain Management 6. Anxiety - ICD9: 300.00, ICD10: F41.9 Stable D/C Paxil 7. Need for influenza vaccination - ICD9: V04.81, ICD10: Z23 - INFLUENZA VACCINE, PRSV FREE, AGE 65+ YR, HIGH DOSE, QUADRIVALENT (FLUZONE HIGH-DOSE) 8. Need for vaccination - ICD9: V05.9, ICD10: Z23 - INFLUENZA VACCINE, PRSV FREE, AGE 65+ YR, HIGH DOSE, QUADRIVALENT (FLUZONE HIGH-DOSE) - PNEUMOCOCCAL VACCINE (PREVNAR 20) 9. PAD (peripheral artery disease) (HCC) - ICD9: 443.9, ICD10: I73.9 Continue current medications. 10. Gastroesophageal reflux disease, unspecified whether esophagitis present - ICD9: 530.81, ICD10: K21.9 - Continue current medications. 11. Vitamin D deficiency - ICD9: 268.9, ICD10: E55.9 Continue with Vitamin D 12. Osteoporosis, unspecified osteoporosis type, unspecified pathological fracture presence - ICD9: 733.00, ICD10: M81.0 - continue tx with alendronate (Fosamax) - Reviewed the need for Calcium and Vitamin D supplements and weight bearing exercise as tolerated Follow up in 6 months with fasting labs prior. I agree with the Chief Complaint, ROS, and Past Histories independently gathered by the clinical support dba and the remaining scribed note accurately describes my personal service to the patient. Medical Decision Making: Problems: Moderate: 2+ stable chronic illnesses Data: Unique test result(s) reviewed: 2 Unique test(s) ordered: 3+ Risk: Moderate: Drug management Medical Decision Making Level: 4 - Moderate Ankit Martinez MD The documentation for this note was completed by Marybel Olivas Ma acting as scribe for Ankit Martinez MD. April 05, 2023 2:07 PM. Marybel Olivas Ma documented in this encounter [facility] 03-05-2023 Note HNO ID: [id number] Author: Christine Miranda MA Service: ? Author Type: Hot Die Press Feeder Type: Progress Notes Filed: 03/05/2023 9:56 AM Note Text: Review of Systems Constitutional: Positive for chills. Negative for activity change, appetite change, fever and unexpected weight change. Genitourinary: Negative for difficulty urinating. Musculoskeletal: Positive for back pain and neck pain. Negative for arthralgias, gait problem, joint swelling, myalgias and neck stiffness. Neurological: Positive for weakness and numbness. Negative for headaches. Psychiatric/Behavioral: Positive for sleep disturbance. Negative for dysphoric mood and suicidal ideas. The patient is nervous/anxious. [facility] 03-05-2023 Note HNO ID: [id number] Author: Rebecca Baron APRN.CONFIDENTIAL SECRETARY Service: ? Author Type: Nurse Practitioner Type: Progress Notes Filed: 03/05/2023 9:56 AM Note Text: [facility] Today's Date:03/05/2023 Last Visit: 11/05/2022 Name: Jessica Gloria : 1955 Purpose: Established Patient Encounter Patient presents with: Follow Up History of Present Illness: Jessica Gloria 67 year old female with complaints of chronic neck, middle back and low back pain. Pain Description: Timing: constant Character: aching and dull, shooting stabbing pains at times Primary Location: neck thoracic and low back Radiation: none Exacerbating factors: any activity too long will make the pain worse. Relieving factors: medications and stretching Interferes with: physical activity, sitting, and reaching for shelves The patient reports numbness and tingling in her toes Patient reporting that she is having constant lower back mid back and neck pain. States that she feels that she is not as active as she would like to be because of the pain. States the current medication regime is helping her with her pain. States she continues to have issues with her activities of daily living and has to take multiple breaks. Patient states the trigger point injection did not help with the pain. Patient reports that she does not feel she needs to repeat the RFA at this time. Patient is here for medication refills. New Problems: none Pertinent Past Medical History: COPD, REYNA, VILLAR, acid reflux, osteopenia, depression/anxiety, back pain Pain Procedures: Date Procedure Relief 01/14/2023 TPI 30 % for a short time 11/07/2021 RFA Right C3-4,4-5,5-6 80% x 3 months 08/06/2021 RFA Left T5-6,6-7,7-8 50% x 1 week 07/23/2021 RFA Right T5-6,6-7,7-8 50% x 1 week INTAKE PAIN ASSESSMENT 01/14/2023 03/05/2023 Are you having pain associated with your visit today? Yes, Provider notified Yes, Provider notified Pain Scales Verbal (Numeric Rating or Visual Analog Scale) Verbal (Numeric Rating or Visual Analog Scale) Pain Level 7 6 Pain Location Back-Middle Back Description Aching Aching Duration Amount of Time - - Duration Units Years Years Frequency Continuous Intermittent Intervention/Comfort measure Medication;Heat Medication Comments - - Pain Assessment - - CURRENT Pain Medications: Membrane Stabilizers: none NSAIDS: none Opioids: Vicodin or Engelhard (Hydrocodone) Muscle Relaxants: Tizandine (for flare ups) Topicals: none Other Prescription or OTC Pain Medications: none Anti-depressants: paxil is prescribed, pt has not started Non-Pain Meds of Note: none Compliance: PDMP website checked and validated. All prescriptions have been APPROPRIATELY filled. No suspicious activity was identified. 03/04/2023 by Rebecca Baron APRN.CONFIDENTIAL SECRETARY Last Drug screen: Not Applicable Pill Count: No question data found. Risk Assessment: Opioid Risk Tool: Opioid Risk Tool: Urine Drug Screen Questionnaire URINE DRUG SCREEN Completed Date 03/05/2023 NA/OIC Questionnaire NA/OIC Completed Date 03/05/2023 MEDICATION NAME hydrocodone STRENGTH 5 LAST FILL DATE 02/18/2023 DATE LAST DOSE TAKEN 03/05/23 QUANTITY FILLED 105 QUANTITY REMAINING 51 (0-3, low risk or no risk; 4-7, moderate risk, 8+, high risk) ERIKA-7: No flowsheet data found.(0-4) minimal anxiety, (5-9) mild anxiety, (10-14) moderate anxiety, (15-21) severe anxiety PHQ-9: No flowsheet data found.(0-4) minimal depression, (5-9) mild depression, (10-14) moderate depression, (15-19) moderately severe depression, (20-27) severe depression Diagnostic Studies: MRI Spine Report MRI THORACIC SPINE WO IVCON Exam End: 12/30/2021 3:01 PM (Final result) Narrative: * * *Final Report* * * DATE OF EXAM: Dec 30 2021 3:01PM DEREK [email or web address] - MRI THORACIC SPINE WO IVCON / PROCEDURE REASON: Radiculopathy, thoracic region * * * * Physician Interpretation * * * * EXAMINATION: MRI CERVICAL SPINE WO IVCON, MRI THORACIC SPINE WO IVCON CLINICAL HISTORY: Cervical and thoracic radiculopathy. TECHNIQUE: Routine cervical and thoracic spine MR protocol without gadolinium. MQ: MRCTWO_3 COMPARISON: None. RESULT: CERVICAL: Counting reference: Craniocervical junction. Anatomic Variants: None. Localizer images: Patchy infiltrates are noted in the upper lobes there appears to be thickening or small amount of fluid in the right major fissure on the dining service worker images but evaluation of the lungs is limited by MRI. Alignment: Accentuation of the normal cervical lordosis likely secondary to accentuated thoracic kyphosis. Craniocervical junction: Alignment at the craniocervical junction is within normal limits. Cord: The cervical spinal cord is within normal limits of signal intensity and morphology. Bone marrow signal/fracture: No evidence of pathologic marrow infiltration. No evidence of prior fracture. Cervical soft t (more content not included)... [facility] 03-05-2023 History of Presen t illness Narrative Review of Systems Constitutional: Positive for chills. Negative for activity change, appetite change, fever and unexpected weight change. Genitourinary: Negative for difficulty urinating. Musculoskeletal: Positive for back pain and neck pain. Negative for arthralgias, gait problem, joint swelling, myalgias and neck stiffness. Neurological: Positive for weakness and numbness. Negative for headaches. Psychiatric/Behavioral: Positive for sleep disturbance. Negative for dysphoric mood and suicidal ideas. The patient is nervous/anxious. Images from the original note were not included. [facility] Today's Date:03/05/2023 Last Visit: 11/05/2022 Name: Jessica Gloria : 1955 Purpose: Established Patient Encounter Patient presents with: Follow Up History of Present Illness: Jessica Gloria 67 year old female with complaints of chronic neck, middle back and low back pain. Pain Description: Timing: constant Character: aching and dull, shooting stabbing pains at times Primary Location: neck thoracic and low back Radiation: none Exacerbating factors: any activity too long will make the pain worse. Relieving factors: medications and stretching Interferes with: physical activity, sitting, and reaching for shelves The patient reports numbness and tingling in her toes Patient reporting that she is having constant lower back mid back and neck pain. States that she feels that she is not as active as she would like to be because of the pain. States the current medication regime is helping her with her pain. States she continues to have issues with her activities of daily living and has to take multiple breaks. Patient states the trigger point injection did not help with the pain. Patient reports that she does not feel she needs to repeat the RFA at this time. Patient is here for medication refills. New Problems: none Pertinent Past Medical History: COPD, REYNA, VILLAR, acid reflux, osteopenia, depression/anxiety, back pain Pain Procedures: Date Procedure Relief 01/14/2023 TPI 30 % for a short time 11/07/2021 RFA Right C3-4,4-5,5-6 80% x 3 months 08/06/2021 RFA Left T5-6,6-7,7-8 50% x 1 week 07/23/2021 RFA Right T5-6,6-7,7-8 50% x 1 week INTAKE PAIN ASSESSMENT 01/14/2023 03/05/2023 Are you having pain associated with your visit today? Yes, Provider notified Yes, Provider notified Pain Scales Verbal (Numeric Rating or Visual Analog Scale) Verbal (Numeric Rating or Visual Analog Scale) Pain Level 7 6 Pain Location Back-Middle Back Description Aching Aching Duration Amount of Time - - Duration Units Years Years Frequency Continuous Intermittent Intervention/Comfort measure Medication;Heat Medication Comments - - Pain Assessment - - CURRENT Pain Medications: Membrane Stabilizers: none NSAIDS: none Opioids: Vicodin or Engelhard (Hydrocodone) Muscle Relaxants: Tizandine (for flare ups) Topicals: none Other Prescription or OTC Pain Medications: none Anti-depressants: paxil is prescribed, pt has not started Non-Pain Meds of Note: none Compliance: PDMP website checked and validated. All prescriptions have been APPROPRIATELY filled. No suspicious activity was identified. 03/04/2023 by Rebecca Baron APRN.CNP Last Drug screen: Not Applicable Pill Count: No question data found. Risk Assessment: Opioid Risk Tool: Opioid Risk Tool: Urine Drug Screen Questionnaire URINE DRUG SCREEN Completed Date 03/05/2023 NA/OIC Questionnaire NA/OIC Completed Date 03/05/2023 MEDICATION NAME hydrocodone STRENGTH 5 LAST FILL DATE 02/18/2023 DATE LAST DOSE TAKEN 03/05/23 QUANTITY FILLED 105 QUANTITY REMAINING 51 (0-3, low risk or no risk; 4-7, moderate risk, 8+, high risk) ERIKA-7: No flowsheet data found.(0-4) minimal anxiety, (5-9) mild anxiety, (10-14) moderate anxiety, (15-21) severe anxiety PHQ-9: No flowsheet data found.(0-4) minimal depression, (5-9) mild depression, (10-14) moderate depression, (15-19) moderately severe depression, (20-27) severe depression Diagnostic Studies: MRI Spine Report MRI THORACIC SPINE WO IVCON Exam End: 12/30/2021 3:01 PM (Final result) Narrative: * * *Final Report* * * DATE OF EXAM: Dec 30 2021 3:01PM [facility] 0325 - MRI THORACIC SPINE WO IVCON / PROCEDURE REASON: Radiculopathy, thoracic region * * * * Physician Interpretation * * * * EXAMINATION: MRI CERVICAL SPINE WO IVCON, MRI THORACIC SPINE WO IVCON CLINICAL HISTORY: Cervical and thoracic radiculopathy. TECHNIQUE: Routine cervical and thoracic spine MR protocol without gadolinium. MQ: MRCTWO_3 COMPARISON: None. RESULT: CERVICAL: Counting reference: Craniocervical junction. Anatomic Variants: None. Localizer images: Patchy infiltrates are noted in the upper lobes there appears to be thickening or small amount of fluid in the right major fissure on the dining service worker images but evaluation of the lungs is limited by MRI. Alignment: Accentuation of the normal cervical lordosis likely secondary to accentuated thoracic kyphosis. Craniocervical junction: Alignment at the craniocervical junction is within normal limits. Cord: The cervical spinal cord is within normal limits of signal intensity and morphology. Bone marrow signal/fracture: No evidence of pathologic marrow infiltration. No evidence of prior fracture. Cervical soft tissues: The paraspinal soft tissues are within normal limits. C2-C3: Canal and foramina are patent. C3-C4: Mild asymmetric facet degenerative changes. Canal and foramina remain patent. C4-C5: Canal and foramina are patent. C5-C6: Mild asymmetric facet degenerative changes. Canal and foramina remain patent. C6-C7: Canal and foramina are patent. C7-T1: Canal and foramina are patent. THORACIC: Counting reference: Lumbosacral junction. For the purposes of this report, L4-5 is considered the level of the iliac crest and assume there are 5 lumbar-type vertebrae. Anatomic variant: None. Audio Visual Manager (topogram) images: No additional findings. Alignment: Accentuation of the normal thoracic kyphosis. Mild to moderate disc space narrowing is noted in the midthoracic spine. Cord: The thoracic spinal cord and conus are within normal limits of signal intensity and morphology. Bone marrow signal/fracture: No evidence of pathologic marrow infiltration. No evidence of prior fracture. Thoracic soft tissues: The paraspinal soft tissues are within normal limits. Canal and foramina: Thoracic canal and foramina are patent. Impression: IMPRESSION: Mild cervical and thoracic degenerative disc disease without significant canal or foraminal stenosis. Cervical Anatomic Variant: None. Assume 7 cervical vertebrae with counting from the craniocervical junction. Anatomic Thoracic/Lumbar Variant: None. L4-5 is considered the level of the iliac crest and assume there are 5 lumbar-type vertebrae. Hand Umbrella Tipper: [facility] Transcribe Date/Time: Dec 30 2021 3:18P Dictated by : RACHEAL MCKEON MD This examination was interpreted and the report reviewed and electronically signed by: RACHEAL MCKEON MD on Dec 30 2021 3:28PM EST Recent Labs: Glucose (mg/dL) Date Value 06/30/2022 80 07/29/2021 93 Potassium (mmol/L) Date Value 06/30/2022 4.4 07/29/2021 4.1 Sodium (mmol/L) Date Value 06/30/2022 136 07/29/2021 137 Chloride (mmol/L) Date Value 06/30/2022 98 07/29/2021 101 CO2 (mmol/L) Date Value 06/30/2022 28 07/29/2021 25 Creatinine (mg/dL) Date Value 06/30/2022 0.60 07/29/2021 0.67 BUN (mg/dL) Date Value 06/30/2022 9 07/29/2021 8 Anion Gap (mmol/L) Date Value 06/30/2022 10 07/29/2021 11 Calcium (mg/dL) Date Value 07/29/2021 9.1 Calcium, Total (mg/dL) Date Value 06/30/2022 9.6 Protein, Total (g/dL) Date Value 06/30/2022 7.3 07/29/2021 6.6 Albumin (g/dL) Date Value 06/30/2022 4.1 07/29/2021 4.1 Bilirubin, Total (mg/dL) Date Value 06/30/2022 0.3 07/29/2021 0.3 Alkaline Phosphatase (U/L) Date Value 06/30/2022 72 07/29/2021 61 AST (U/L) Date Value 06/30/2022 20 07/29/2021 16 ALT (U/L) Date Value 06/30/2022 7 07/29/2021 9 Electrodiagnostic Study (EMG): None Current Medications, Past Medical History, Past Surgical History, Family History, Social History and Review of Systems: On today's date, noted above, I have confirmed and edited as necessary, the PFSH and ROS obtained by others. Physical Exam: There were no vitals filed for this visit. Physical Exam Vitals reviewed. Constitutional: General: She is not in acute distress. Appearance: She is not ill-appearing. HENT: Head: Normocephalic and atraumatic. Eyes: Conjunctiva/sclera: Conjunctivae normal. Cardiovascular: Pulses: Normal pulses. Pulmonary: Effort: Pulmonary effort is normal. No respiratory distress. Musculoskeletal: Cervical back: Tenderness present. Pain with movement present. Decreased range of motion. Thoracic back: Tenderness present. Decreased range of motion. Scoliosis (kyphosis noted) present. Lumbar back: Tenderness and bony tenderness present. Decreased range of motion. Skin: General: Skin is warm and dry. Neurological: Mental Status: She is alert and oriented to person, place, and time. Psychiatric: Mood and Affect: Mood and affect normal. Behavior: Behavior normal. Behavior is cooperative. Diagnoses: (M47.814) Thoracic spondylosis without myelopathy (primary encounter diagnosis) (M47.817) Lumbosacral spondylosis without myelopathy (M47.812) Cervical spondylosis without myelopathy (M79.10) Myalgia (Z79.891) senior living current use of opiate analgesic (G89.4) Chronic pain syndrome Impression: 67 year old female presents with complaint(s) of back pain from her neck to her low back. Patient reporting the mid back pain is where the pain was the most severe. States that she feels she is moving less and she is not as strong as she would like to be. States that she thinks this decrease in strength is making a difference in her pain levels. Discussed physical therapy with the patient patient is open to attempting physical therapy to help with her back pain. Plan: Jessica Gloria would benefit from the following to reach personal goals for decreasing pain, improving function and work participation, and/or improving quality of life: Medication(s): Requested Prescriptions Signed Prescriptions Disp Refills HYDROcodone-acetaminophen (NORCO) 5-325 mg per tablet 105 tablet 0 Sig: Take 1 tablet by mouth every 6 hours as needed for up to 30 days. Do not start before April 19, 2023. HYDROcodone-acetaminophen (NORCO) 5-325 mg per tablet 105 tablet 0 Sig: Take 1 tablet by mouth every 6 hours as needed for pain for up to 30 days. Take one pill 4 times daily as needed for back pain Do not start before March 20, 2023. UDS from 11/05/2022 - reviewed and consistent with contents prescribed UDS was obtained today Additional Studies: none Referrals: Physical Therapy Functional Sabianism: Physical Therapy (Land-based) Depending on response to the above plan, consider: repeating RFA Compliance: Safety Checklist: Are you taking proper precautions to safe guard your medication? Yes Taking the medications as prescribed? Yes Getting pain medications from another physician? No Obtaining pain medication from another source? No Sharing medications with friends/family? No Quality of life improved as a result of taking these medications? Yes Any side effect with this medication? No Justification for Continued Opioid Care: Adequate analgesia? Yes Aberrant drug seeking behavior? No Adverse reactions? No Medications improve quality of life? Yes -Follow-up: 2 months. Attribution: In addition to reviewing the information noted above, some elements copied from my most recent clinical note(s), including the physical exam (completed in entirety today), and the impression and plan sections, have been updated where appropriate. All reflect current medical decision making from today's date. Rebecca Baron CNP. Pain Management [facility] documented in this encounter [facility] 01-14-2023 Note HNO ID: [id number] Author: Rebecca Baron APRN.CNP Service: ? Author Type: Nurse Practitioner Type: Procedures Filed: 01/14/2023 4:20 PM Note Text: The HANDP completed on 01/14/2023 I have reviewed the history and physical and examined the patient and there are no changes unless noted below: No update and/or changes to Jessica Oharaehaus history and physical. Rebecca Baron APRN.CNP Procedure time out completed to confirm patient's name, date of , allergies and procedure being performed. Time completed: 3:10 Procedure Start Time: 3:15 Procedure End Time: 3:30 History of Present Illness: This is a 67 year old year old female presents here today for trigger points. PAST MEDICAL HISTORY Diagnosis Date Acid reflux Back pain COPD (chronic obstructive pulmonary disease) ([facility]) 2016 FEV1 0.95L, 40% pred. COPD (chronic obstructive pulmonary disease) ([facility]) Kidney stones Osteopenia frax score 4% hip fracture risk 2017 start fosamax repeat imaging 1-2 years Unspecified asthma(493.90) PAST SURGICAL HISTORY Procedure Laterality Date COLONOSCOPY 01/20/2022 COLONOSCOPY FLX DX W/COLLJ SPEC WHEN PFRMD 05/27/2011 Colonoscopy CYSTO CALIBRATION DILAT URTL STRIX/STENOSIS N/A 11/22/2018 EGD W/O BRSH SPEC VARICIES INJ 01/20/2022 LAPAROSCOPY SURG CHOLECYSTECTOMY 2005 Cholecystectomy, lap LIG/TRNSXJ FLP TUBE ABDL/VAG APPR UNI/BI Tubal ligation LITHOTRIPSY XTRCORP SHOCK WAVE Lithotripsy LUNG BIOPSY 2021 PAST SURGICAL HISTORY OF 1982 lung biopsy PAST SURGICAL HISTORY OF Right 05/2020 CT guided biopsy on Lung. Dr. Brayden ALONSO OPER STRES INCONTINENCE 08/2011 ALLERGIES Allergen Reactions Bactrim [Sulfametho* Other: See Comments [place] sick, barely could breath. [place] deathly sick . GI upset Formoterol Shortness of Breath Glycopyrronium Shortness of Breath Penicillins Anaphylaxis As a child passed out in md office after PCN injection. Zoloft [Sertraline * GI Upset GI upset, chest burning, muscle ache Ipratropium Other: See Comments Blurry vision, abdominal cramping, tremor, headache. Tudorza Pressair [A* Other: See Comments Heart palpitations, blurry vision, abdominal cramping, tremor, headache. Aclidinium Other: See Comments Cymbalta [Duloxetin* Intolerance panic Duloxetine Hcl Unknown Other reaction(s): Panic attack Elavil [Amitriptyli* Intolerance GI upset, chest burning Fluticasone-Umeclid* Other: See Comments Gabapentin Intolerance Cough, sob, anxiety, increased drowsiness Incruse Ellipta [Um* Other: See Comments Heart palpitations, blurry vision, abdominal cramping, tremor, headache. Levofloxacin Other: See Comments pressure in head. Feel like she is going to throw up and pass out. Lyrica [Pregabalin] Other: See Comments Chest discomfort,burping,sob Methylprednisone Myalgia Sertraline GI Upset Sulfamethoxazole Other: See Comments Trimethoprim Other: See Comments Doxycycline Mental Status Change Makes her feel spacey . If given abx prefer to use this one out of all with the least amount of side effects. Umeclidinium [place] Unknown, Other: See Comments Other reaction(s): abdominal cramping, blurry vision, Tremor metoprolol succinate ER (TOPROL XL) 25 mg 24 hr tablet Take 1 tablet by mouth once daily. famotidine (PEPCID) 20 mg tablet Take 1 tablet by mouth twice daily. polyethylene glycol 3350 (MIRALAX) 17 gram/dose powder Take 17 g by mouth once daily. As needed for constipation loratadine (CLARITIN) 10 mg tablet Take 1 tablet by mouth once daily as needed. FOR ALLERGY SYMPTOMS tiZANidine (ZANAFLEX) 2 mg tablet Take 1-2 tablets every 8 hours as needed for muscle spasm related pain HYDROcodone-acetaminophen (NORCO) 5-325 mg per tablet Take 1 tablet by mouth every 6 hours as needed for pain for up to 30 days. Take one pill 4 times daily as needed for back pain Do not start before December 20, 2022. HYDROcodone-acetaminophen (NORCO) 5-325 mg per tablet Take 1 tablet by mouth every 6 hours as needed for pain for up to 30 days. Take one pill 4 times daily as needed for back pain Do not start before November 20, 2022. HYDROcodone-acetaminophen (NORCO) 5-325 mg per tablet take 1 tablet by mouth every 6 hours if needed for pain hydrOXYzine HCl (ATARAX) 25 mg tablet Take 1 tablet by mouth twice daily as needed for anxiety. PARoxetine (PAXIL) 10 mg tablet take 1 tablet by mouth once daily alendronate (FOSAMAX) 70 mg tablet Take 1 tablet by mouth one time a week. In AM with cup of water on empty stomach. Nothing else by mouth and stay upright for 30 min. rosuvastatin (CRESTOR) 10 mg tablet take 1 tablet by mouth at bedtime COMBIVENT RESPIMAT 20-100 mcg/actuation inhaler ALBUTEROL SULFATE HFA INHALATION Inhale as instructed. fluticasone (FLONASE) 50 mcg/actuation nasal spray place 1 spray into each nostril twice a day Nebulizer Accessories kit 4 kits per month. Dx J44.9 albuterol (PROVENTIL) 2.5 mg /3 mL (0.083 %) nebulizer s (more content not included)... [facility] 01-14-2023 Note HNO ID: [id number] Author: Rebecca Baron APRN.CONFIDENTIAL SECRETARY Service: ? Author Type: Nurse Practitioner Type: Progress Notes Filed: 01/14/2023 4:20 PM Note Text: [facility] Today's Date:01/14/2023 Last Visit: 11/05/2022 Name: Jessica Gloria : 1955 Purpose: Established Patient Encounter Patient presents with: Follow Up History of Present Illness: Jessica Gloria 67 year old female with complaints of chronic upper back and shoulder pain. Pt has had this pain for years. Pt has severe scoliosis and she thinks this is where the pain is coming from. Pt was scheduled today to have a TPI of the cervical, trapezius and thoracic paraspinal regions. Pt was apprehensive to have the injection done. After explanation, pt agreed to the procedure. Pt needed an HANDP done before the procedure. Pain Procedures: Date Procedure relief INTAKE PAIN ASSESSMENT 12/09/2022 01/14/2023 Are you having pain associated with your visit today? No Yes, Provider notified Pain Scales - Verbal (Numeric Rating or Visual Analog Scale) Pain Level - 7 Pain Location - Back-Middle Description - Aching Duration Amount of Time - - Duration Units - Years Frequency - Continuous Intervention/Comfort measure - Medication;Heat Comments - - Pain Assessment - - Pain Description: Timing: constant Character: sharp aching pain Primary Location: upper back Radiation: none Exacerbating factors: forward flexion sitting, standing, and walking Relieving factors: medications and heat Interferes with: physical activity, walking, sitting, driving, cooking, and household cleaning The patient reports arm or leg weakness and numbness or tingling. Non-Pain Meds of Note: none Compliance: PDMP website checked and validated. All prescriptions have been APPROPRIATELY filled. No suspicious activity was identified. 01/14/2023 by Rebecca Baron APRN.CONFIDENTIAL SECRETARY Last Drug screen: Not Applicable Pill Count: MEDICATION NAME NORCO STRENGTH 5 LAST FILL DATE 12/20/2022 DATE LAST DOSE TAKEN 01/14/23 QUANTITY FILLED 105 QUANTITY REMAINING 15 Risk Assessment: Opioid Risk Tool: Opioid Risk Tool: MEDICATION NAME NORCO STRENGTH 5 LAST FILL DATE 12/20/2022 DATE LAST DOSE TAKEN 01/14/23 QUANTITY FILLED 105 QUANTITY REMAINING 15 Urine Drug Screen Questionnaire URINE DRUG SCREEN Completed Date 01/14/2023 Comments lab work (0-3, low risk or no risk; 4-7, moderate risk, 8+, high risk) ERIKA-7: No flowsheet data found.(0-4) minimal anxiety, (5-9) mild anxiety, (10-14) moderate anxiety, (15-21) severe anxiety PHQ-9: No flowsheet data found.(0-4) minimal depression, (5-9) mild depression, (10-14) moderate depression, (15-19) moderately severe depression, (20-27) severe depression Diagnostic Studies: DXA-AXIAL SKELETON Narrative: * * *Final Report* * * DATE OF EXAM: Jul 29 2022 11:19AM [facility] 0804 - BD DXA - AXIAL SKELETON / PROCEDURE REASON: multiple diagnoses * * * * Physician Interpretation * * * * PROCEDURE: BD DXA - AXIAL SKELETON INDICATION: Encounter for screening for osteoporosis. Asymptomatic postmenopausal state TECHNIQUE: Low dose AP spine and hip images COMPARISON: August 31, 2016 LUMBAR SPINE: The bone mineral density from L1 through L4 is 0.718 grams per square centimeter which yields a T-score of -3.0. There has been an 11.4% statistically significant interval decrease in bone mineral density. LEFT HIP: The bone mineral density of the total region of the hip is 0.655 grams per square centimeter which yields a T-score of -2.4. There has been an 11.9% statistically significant interval decrease in bone mineral density. LEFT FEMORAL NECK: The bone mineral density of the femoral neck is 0.487 grams per square centimeter which yields a T-score of -3.3. There has been a 19.7% statistically significant interval decrease in bone mineral density. 10-year Fracture Risk (FRAX): Major osteoporotic fracture risk 17% Hip fracture risk is 8.3% Impression: IMPRESSION: Osteoporosis in the lumbar spine and left femoral neck. [facility] ORG. CLASSIFICATION OF BONE MASS CLASSIFICATION T-SCORE Normal Greater than -1 Low Bone Mass Between -1 and -2.5 (Osteopenia) Osteoporosis Less than or equal to -2.5 Hand Umbrella Tipper: [facility] Transcribe Date/Time: Jul 29 2022 3:20P Dictated by : HANNAH MONDRAGON MD This examination was interpreted and the report reviewed and electronically signed by: HANNAH MONDRAGON MD on Jul 29 2022 3:21PM EST MRI Spine Report MRI THORACIC SPINE WO IVCON Exam End: 12/30/2021 3:01 PM (Final result) Narrative: * * *Final Report* * * DATE OF EXAM: Dec 30 2021 3:01PM [facility] 0325 - MRI THORACIC SPINE WO IVCON / PROCEDURE REASON: Radiculopathy, thoracic region * * * * Physician Interpretation * * * * EXAMINATION: MRI CERVICAL SPINE WO IVCON, MRI THORACIC SPINE WO IVCON CLINICAL HISTORY: (more content not included)... [facility] 01-14-2023 Note HNO ID: [id number] Author: Tri Hensley MA Service: ? Author Type: Hot Die Press Feeder Type: Progress Notes Filed: 01/14/2023 4:20 PM Note Text: Review of Systems Constitutional: Positive for chills. Negative for activity change, fever and unexpected weight change. Gastrointestinal: Negative for bowel retention or incontinence Genitourinary: Positive for difficulty urinating. Negative for bladder retention or incontinence Musculoskeletal: Positive for arthralgias, back pain, gait problem, myalgias, neck pain and neck stiffness. Negative for joint swelling. Neurological: Positive for weakness and numbness. Negative for headaches. Psychiatric/Behavioral: Positive for sleep disturbance. Negative for dysphoric mood and suicidal ideas. The patient is nervous/anxious. [facility] 01-14-2023 Procedure note The H&P completed on 01/14/2023 I have reviewed the history and physical and examined the patient and there are no changes unless noted below: No update and/or changes to Jessica Gloria history and physical. Rebecca Baron APRN.CONFIDENTIAL SECRETARY Procedure time out completed to confirm patient's name, date of , allergies and procedure being performed. Time completed: 3:10 Procedure Start Time: 3:15 Procedure End Time: 3:30 History of Present Illness: This is a 67 year old year old female presents here today for trigger points. PAST MEDICAL HISTORY Diagnosis Date Acid reflux Back pain COPD (chronic obstructive pulmonary disease) ([facility]) 2016 FEV1 0.95L, 40% pred. COPD (chronic obstructive pulmonary disease) ([facility]) Kidney stones Osteopenia frax score 4% hip fracture risk 2017 start fosamax repeat imaging 1-2 years Unspecified asthma(493.90) PAST SURGICAL HISTORY Procedure Laterality Date COLONOSCOPY 01/20/2022 COLONOSCOPY FLX DX W/COLLJ SPEC WHEN PFRMD 05/27/2011 Colonoscopy CYSTO CALIBRATION DILAT URTL STRIX/STENOSIS N/A 11/22/2018 EGD W/O BRSH SPEC VARICIES INJ 01/20/2022 LAPAROSCOPY SURG CHOLECYSTECTOMY 2005 Cholecystectomy, lap LIG/TRNSXJ FLP TUBE ABDL/VAG APPR UNI/BI Tubal ligation LITHOTRIPSY XTRCORP SHOCK WAVE Lithotripsy LUNG BIOPSY 2021 PAST SURGICAL HISTORY OF 1982 lung biopsy PAST SURGICAL HISTORY OF Right 05/2020 CT guided biopsy on Lung. Dr. Brayden ALONSO OPER STRES INCONTINENCE 08/2011 ALLERGIES Allergen Reactions Bactrim [Sulfametho* Other: See Comments [place] sick, barely could breath. [place] deathly sick . GI upset Formoterol Shortness of Breath Glycopyrronium Shortness of Breath Penicillins Anaphylaxis As a child passed out in md office after PCN injection. Zoloft [Sertraline * GI Upset GI upset, chest burning, muscle ache Ipratropium Other: See Comments Blurry vision, abdominal cramping, tremor, headache. Tudorza Pressair [A* Other: See Comments Heart palpitations, blurry vision, abdominal cramping, tremor, headache. Aclidinium Other: See Comments Cymbalta [Duloxetin* Intolerance panic Duloxetine Hcl Unknown Other reaction(s): Panic attack Elavil [Amitriptyli* Intolerance GI upset, chest burning Fluticasone-Umeclid* Other: See Comments Gabapentin Intolerance Cough, sob, anxiety, increased drowsiness Incruse Ellipta [Um* Other: See Comments Heart palpitations, blurry vision, abdominal cramping, tremor, headache. Levofloxacin Other: See Comments pressure in head. Feel like she is going to throw up and pass out. Lyrica [Pregabalin] Other: See Comments Chest discomfort,burping,sob Methylprednisone Myalgia Sertraline GI Upset Sulfamethoxazole Other: See Comments Trimethoprim Other: See Comments Doxycycline Mental Status Change Makes her feel spacey . If given abx prefer to use this one out of all with the least amount of side effects. Umeclidinium [place] Unknown, Other: See Comments Other reaction(s): abdominal cramping, blurry vision, Tremor metoprolol succinate ER (TOPROL XL) 25 mg 24 hr tablet Take 1 tablet by mouth once daily. famotidine (PEPCID) 20 mg tablet Take 1 tablet by mouth twice daily. polyethylene glycol 3350 (MIRALAX) 17 gram/dose powder Take 17 g by mouth once daily. As needed for constipation loratadine (CLARITIN) 10 mg tablet Take 1 tablet by mouth once daily as needed. FOR ALLERGY SYMPTOMS tiZANidine (ZANAFLEX) 2 mg tablet Take 1-2 tablets every 8 hours as needed for muscle spasm related pain HYDROcodone-acetaminophen (NORCO) 5-325 mg per tablet Take 1 tablet by mouth every 6 hours as needed for pain for up to 30 days. Take one pill 4 times daily as needed for back pain Do not start before December 20, 2022. HYDROcodone-acetaminophen (NORCO) 5-325 mg per tablet Take 1 tablet by mouth every 6 hours as needed for pain for up to 30 days. Take one pill 4 times daily as needed for back pain Do not start before November 20, 2022. HYDROcodone-acetaminophen (NORCO) 5-325 mg per tablet take 1 tablet by mouth every 6 hours if needed for pain hydrOXYzine HCl (ATARAX) 25 mg tablet Take 1 tablet by mouth twice daily as needed for anxiety. PARoxetine (PAXIL) 10 mg tablet take 1 tablet by mouth once daily alendronate (FOSAMAX) 70 mg tablet Take 1 tablet by mouth one time a week. In AM with cup of water on empty stomach. Nothing else by mouth and stay upright for 30 min. rosuvastatin (CRESTOR) 10 mg tablet take 1 tablet by mouth at bedtime COMBIVENT RESPIMAT 20-100 mcg/actuation inhaler ALBUTEROL SULFATE HFA INHALATION Inhale as instructed. fluticasone (FLONASE) 50 mcg/actuation nasal spray place 1 spray into each nostril twice a day Nebulizer Accessories kit 4 kits per month. Dx J44.9 albuterol (PROVENTIL) 2.5 mg /3 mL (0.083 %) nebulizer solution Use 3 mL via nebulizer every 4 hours as needed for Wheezing/Shortness of Breath. Use over 5-15minutes. Cholecalciferol, Vitamin D3, 2,000 unit cap Take 1 capsule by mouth once daily. DULERA 200-5 mcg/actuation inhaler Inhale 2 Puffs as instructed twice daily. There were no vitals taken for this visit. PROCEDURE: Joint Injection/Aspiration: Consent was obtained. Risk and benefits were explained. Questions were encouraged and answered. Patient wishes to proceed. Procedure to be Performed: Trigger point injections of the paracervical, trapezius and para thoracic and rhomboid region. Sign In: A Moment of CARE was completed. Personnel directly involved with the procedure wore the appropriate PPE (Personal Protective Equipment). Patient/Surrogate Stated/Verified: PATIENT VERIFIED(optional for EMERGENT procedures): Patient name, Date of , Relevant allergies and The intended procedure Time Out Communication: Intended patient and procedure match the source documents. Consent documented and matches the intended procedure. Sign Out: SIGN OUT (optional for EMERGENT procedures): No specimen collected. Rebecca Baron APRN.CNP Trigger Point (Trigger point injections of the paracervical, trapezius and para thoracic and rhomboid region. ) 9 trigger point injection was performed with 1 mL(s) of bupivacaine 0.25% for anesthetic. A 25 gauge needle was used. Indication for Procedure: myalgia Post Procedure: The patient tolerated the treatment well. Assessment/Plan: Rebecca Baron APRN.CNP documented in this encounter [facility] 01-14-2023 History of Presen t illness Narrative Images from the original note were not included. [facility] Today's Date:01/14/2023 Last Visit: 11/05/2022 Name: Jessica Gloria : 1955 Purpose: Established Patient Encounter Patient presents with: Follow Up History of Present Illness: Jessica Gloria 67 year old female with complaints of chronic upper back and shoulder pain. Pt has had this pain for years. Pt has severe scoliosis and she thinks this is where the pain is coming from. Pt was scheduled today to have a TPI of the cervical, trapezius and thoracic paraspinal regions. Pt was apprehensive to have the injection done. After explanation, pt agreed to the procedure. Pt needed an H&P done before the procedure. Pain Procedures: Date Procedure relief INTAKE PAIN ASSESSMENT 12/09/2022 01/14/2023 Are you having pain associated with your visit today? No Yes, Provider notified Pain Scales - Verbal (Numeric Rating or Visual Analog Scale) Pain Level - 7 Pain Location - Back-Middle Description - Aching Duration Amount of Time - - Duration Units - Years Frequency - Continuous Intervention/Comfort measure - Medication;Heat Comments - - Pain Assessment - - Pain Description: Timing: constant Character: sharp aching pain Primary Location: upper back Radiation: none Exacerbating factors: forward flexion sitting, standing, and walking Relieving factors: medications and heat Interferes with: physical activity, walking, sitting, driving, cooking, and household cleaning The patient reports arm or leg weakness and numbness or tingling. Non-Pain Meds of Note: none Compliance: PDMP website checked and validated. All prescriptions have been APPROPRIATELY filled. No suspicious activity was identified. 01/14/2023 by Rebecca Baron APRN.CONFIDENTIAL SECRETARY Last Drug screen: Not Applicable Pill Count: MEDICATION NAME NORCO STRENGTH 5 LAST FILL DATE 12/20/2022 DATE LAST DOSE TAKEN 01/14/23 QUANTITY FILLED 105 QUANTITY REMAINING 15 Risk Assessment: Opioid Risk Tool: Opioid Risk Tool: MEDICATION NAME NORCO STRENGTH 5 LAST FILL DATE 12/20/2022 DATE LAST DOSE TAKEN 01/14/23 QUANTITY FILLED 105 QUANTITY REMAINING 15 Urine Drug Screen Questionnaire URINE DRUG SCREEN Completed Date 01/14/2023 Comments lab work (0-3, low risk or no risk; 4-7, moderate risk, 8+, high risk) ERIKA-7: No flowsheet data found.(0-4) minimal anxiety, (5-9) mild anxiety, (10-14) moderate anxiety, (15-21) severe anxiety PHQ-9: No flowsheet data found.(0-4) minimal depression, (5-9) mild depression, (10-14) moderate depression, (15-19) moderately severe depression, (20-27) severe depression Diagnostic Studies: DXA-AXIAL SKELETON Narrative: * * *Final Report* * * DATE OF EXAM: Jul 29 2022 11:19AM [facility] 0804 - DXA - AXIAL SKELETON / PROCEDURE REASON: multiple diagnoses * * * * Physician Interpretation * * * * PROCEDURE: BD DXA - AXIAL SKELETON INDICATION: Encounter for screening for osteoporosis. Asymptomatic postmenopausal state TECHNIQUE: Low dose AP spine and hip images COMPARISON: August 31, 2016 LUMBAR SPINE: The bone mineral density from L1 through L4 is 0.718 grams per square centimeter which yields a T-score of -3.0. There has been an 11.4% statistically significant interval decrease in bone mineral density. LEFT HIP: The bone mineral density of the total region of the hip is 0.655 grams per square centimeter which yields a T-score of -2.4. There has been an 11.9% statistically significant interval decrease in bone mineral density. LEFT FEMORAL NECK: The bone mineral density of the femoral neck is 0.487 grams per square centimeter which yields a T-score of -3.3. There has been a 19.7% statistically significant interval decrease in bone mineral density. 10-year Fracture Risk (FRAX): Major osteoporotic fracture risk 17% Hip fracture risk is 8.3% Impression: IMPRESSION: Osteoporosis in the lumbar spine and left femoral neck. [facility]. CLASSIFICATION OF BONE MASS CLASSIFICATION T-SCORE Normal Greater than -1 Low Bone Mass Between -1 and -2.5 (Osteopenia) Osteoporosis Less than or equal to -2.5 Hand Umbrella Tipper: PSCElisabeth Transcribe Date/Time: Jul 29 2022 3:20P Dictated by : HANNAH MONDRAGON MD This examination was interpreted and the report reviewed and electronically signed by: HANNAH MONDRAGON MD on Jul 29 2022 3:21PM EST MRI Spine Report MRI THORACIC SPINE WO IVCON Exam End: 12/30/2021 3:01 PM (Final result) Narrative: * * *Final Report* * * DATE OF EXAM: Dec 30 2021 3:01PM [facility] 0325 - MRI THORACIC SPINE WO IVCON / PROCEDURE REASON: Radiculopathy, thoracic region * * * * Physician Interpretation * * * * EXAMINATION: MRI CERVICAL SPINE WO IVCON, MRI THORACIC SPINE WO IVCON CLINICAL HISTORY: Cervical and thoracic radiculopathy. TECHNIQUE: Routine cervical and thoracic spine MR protocol without gadolinium. MQ: [id number] COMPARISON: None. RESULT: CERVICAL: Counting reference: Craniocervical junction. Anatomic Variants: None. Localizer images: Patchy infiltrates are noted in the upper lobes there appears to be thickening or small amount of fluid in the right major fissure on the dining service worker images but evaluation of the lungs is limited by MRI. Alignment: Accentuation of the normal cervical lordosis likely secondary to accentuated thoracic kyphosis. Craniocervical junction: Alignment at the craniocervical junction is within normal limits. Cord: The cervical spinal cord is within normal limits of signal intensity and morphology. Bone marrow signal/fracture: No evidence of pathologic marrow infiltration. No evidence of prior fracture. Cervical soft tissues: The paraspinal soft tissues are within normal limits. C2-C3: Canal and foramina are patent. C3-C4: Mild asymmetric facet degenerative changes. Canal and foramina remain patent. C4-C5: Canal and foramina are patent. C5-C6: Mild asymmetric facet degenerative changes. Canal and foramina remain patent. C6-C7: Canal and foramina are patent. C7-T1: Canal and foramina are patent. THORACIC: Counting reference: Lumbosacral junction. For the purposes of this report, L4-5 is considered the level of the iliac crest and assume there are 5 lumbar-type vertebrae. Anatomic variant: None. Audio Visual Manager (topogram) images: No additional findings. Alignment: Accentuation of the normal thoracic kyphosis. Mild to moderate disc space narrowing is noted in the midthoracic spine. Cord: The thoracic spinal cord and conus are within normal limits of signal intensity and morphology. Bone marrow signal/fracture: No evidence of pathologic marrow infiltration. No evidence of prior fracture. Thoracic soft tissues: The paraspinal soft tissues are within normal limits. Canal and foramina: Thoracic canal and foramina are patent. Impression: IMPRESSION: Mild cervical and thoracic degenerative disc disease without significant canal or foraminal stenosis. Cervical Anatomic Variant: None. Assume 7 cervical vertebrae with counting from the craniocervical junction. Anatomic Thoracic/Lumbar Variant: None. L4-5 is considered the level of the iliac crest and assume there are 5 lumbar-type vertebrae. Hand Umbrella Tipper: [facility] CENT[facility]lisabeth Transcribe Date/Time: Dec 30 2021 3:18P Dictated by : RACHEAL MCKEON MD This examination was interpreted and the report reviewed and electronically signed by: RACHEAL MCKEON MD on Dec 30 2021 3:28PM EST Recent Labs: Glucose (mg/dL) Date Value 06/30/2022 80 07/29/2021 93 Potassium (mmol/L) Date Value 06/30/2022 4.4 07/29/2021 4.1 Sodium (mmol/L) Date Value 06/30/2022 136 07/29/2021 137 Chloride (mmol/L) Date Value 06/30/2022 98 07/29/2021 101 CO2 (mmol/L) Date Value 06/30/2022 28 07/29/2021 25 Creatinine (mg/dL) Date Value 06/30/2022 0.60 07/29/2021 0.67 BUN (mg/dL) Date Value 06/30/2022 9 07/29/2021 8 Anion Gap (mmol/L) Date Value 06/30/2022 10 07/29/2021 11 Calcium (mg/dL) Date Value 07/29/2021 9.1 Calcium, Total (mg/dL) Date Value 06/30/2022 9.6 Protein, Total (g/dL) Date Value 06/30/2022 7.3 07/29/2021 6.6 Albumin (g/dL) Date Value 06/30/2022 4.1 07/29/2021 4.1 Bilirubin, Total (mg/dL) Date Value 06/30/2022 0.3 07/29/2021 0.3 Alkaline Phosphatase (U/L) Date Value 06/30/2022 72 07/29/2021 61 AST (U/L) Date Value 06/30/2022 20 07/29/2021 16 ALT (U/L) Date Value 06/30/2022 7 07/29/2021 9 Electrodiagnostic Study (EMG): None Current Medications, Past Medical History, Past Surgical History, Family History, Social History and Review of Systems: On today's date, noted above, I have confirmed and edited as necessary, the PFSH and ROS obtained by others. Physical Exam: 01/14/23 1454 Pulse: 73 Resp: 16 SpO2: 94% Physical Exam Vitals reviewed. Constitutional: General: She is not in acute distress. Appearance: She is not ill-appearing. HENT: Head: Normocephalic and atraumatic. Eyes: Conjunctiva/sclera: Conjunctivae normal. Cardiovascular: Pulses: Normal pulses. Pulmonary: Effort: Pulmonary effort is normal. No respiratory distress. Musculoskeletal: Right shoulder: Decreased range of motion. Left shoulder: Decreased range of motion. Thoracic back: Spasms, tenderness and bony tenderness present. Decreased range of motion. Scoliosis present. Skin: General: Skin is warm and dry. Neurological: Mental Status: She is alert and oriented to person, place, and time. Psychiatric: Mood and Affect: Mood and affect normal. Behavior: Behavior normal. Behavior is cooperative. Diagnoses: (M47.812) Cervical spondylosis without myelopathy (M47.814) Thoracic spondylosis without myelopathy (M47.817) Lumbosacral spondylosis without myelopathy (G89.4) Chronic pain syndrome Impression: 67 year old female presents with complaint(s) of upper back pain. Pt is anxious with care at first but agrees to do a TPI today Plan: Jessica Gloria would benefit from the following to reach personal goals for decreasing pain, improving function and work participation, and/or improving quality of life: Medication(s): Requested Prescriptions Signed Prescriptions Disp Refills HYDROcodone-acetaminophen (NORCO) 5-325 mg per tablet 105 tablet 0 Sig: Take 1 tablet by mouth every 6 hours as needed for up to 30 days. Do not start before February 13, 2023. HYDROcodone-acetaminophen (NORCO) 5-325 mg per tablet 105 tablet 0 Sig: Take 1 tablet by mouth every 6 hours as needed for pain for up to 30 days. Take one pill 4 times daily as needed for back pain Do not start before January 19, 2023. UDS from 11/24/2022 - reviewed and consistent with contents prescribed Blood work was obtained today for drug screening Additional Studies: none Referrals: none Functional Sabianism: Depending on response to the above plan, consider: -Follow-up: 2 months. Attribution: In addition to reviewing the information noted above, some elements copied from my most recent clinical note(s), including the physical exam (completed in entirety today), and the impression and plan sections, have been updated where appropriate. All reflect current medical decision making from today's date. Rebecca Baron CNP. Pain Management [facility] Review of Systems Constitutional: Positive for chills. Negative for activity change, fever and unexpected weight change. Gastrointestinal: Negative for bowel retention or incontinence Genitourinary: Positive for difficulty urinating. Negative for bladder retention or incontinence Musculoskeletal: Positive for arthralgias, back pain, gait problem, myalgias, neck pain and neck stiffness. Negative for joint swelling. Neurological: Positive for weakness and numbness. Negative for headaches. Psychiatric/Behavioral: Positive for sleep disturbance. Negative for dysphoric mood and suicidal ideas. The patient is nervous/anxious. documented in this encounter [facility] 01-01-2023 Note HNO ID: [id number] Author: Peri Montaño, MANJULA Service: ? Author Type: CHEESE TESTER Type: Progress Notes Filed: 01/01/2023 2:02 PM Note Text: 1. Posterior subcapsular polar senile cataract of both eyes 2. Nuclear sclerosis of both eyes 3. Cortical age-related cataract, bilateral +visual significance right eye > left eye Patient opts to try updated glasses rx and follow-up in 6 months 4. Myopia, bilateral 5. Regular astigmatism of both eyes 6. Presbyopia Finalized spec rx 7. Dry eyes, bilateral Use artificial tears and warm compresses as needed Follow-up with Dr. Murdock in 6 months for maxx fiona Montaño, OD January 01, 2023 2:00 PM [facility] 01-01-2023 History of Presen t illness Narrative 1. Posterior subcapsular polar senile cataract of both eyes 2. Nuclear sclerosis of both eyes 3. Cortical age-related cataract, bilateral +visual significance right eye > left eye Patient opts to try updated glasses rx and follow-up in 6 months 4. Myopia, bilateral 5. Regular astigmatism of both eyes 6. Presbyopia Finalized spec rx 7. Dry eyes, bilateral Use artificial tears and warm compresses as needed Follow-up with Dr. Murdock in 6 months for cat fiona Montaño, OD January 01, 2023 2:00 PM documented in this encounter [facility] 12-21-2022 Note HNO ID: [id number] Author: Ankit Martinez MD Service: ? Author Type: Physician Type: Progress Notes Filed: 12/21/2022 3:43 PM Note Text: Chief Complaint Patient presents with: Follow Up HPI Jessica Gloria is a 67 year old female who presents here today for follow up. Pt here for a 2 month follow up. Smoking still about 1 ppd. Has been talking to people who've quit in the past. Trying to get encouraged to quit. GERD/GI - Taking Pepcid 20 mg bid prn for upset stomach. Tends to get a nervous stomach. Will use Miralax prn for constipation. Lipid: Admits to not taking Crestor 10 mg daily. States that her pharmacy told her this medication can cause muscle pain. Has lost 5 lbs since her last OV. Tries to make herself eat, but just gets full quickly. Pain: Chronic back pain, following with Pain Management Dr. Florez who has pt taking [place] 5-325 mg every 6 hours prn. ERIKA/Depression: Pt realizes she needs to let loose of her fears but struggles. Prescribed Paxil 10 mg half pill once daily, but admits to not taking it regularly due to being fearful of taking medications. Pt states that she's been fearful of trying medication since she used Cymbalta and Zoloft. Pt states that the Zoloft upset her stomach and made her feel like she had a fire in her chest. The Cymbalta made her have a panic attack, made her feel much worse. Her daughter is working with her on this. States that when she did take it she had no issues with it and felt better. Notes she does need to take it. Takes Vistaril 25 mg once daily at bedtime. Getting support from her daughter, who is also on medication. Palpitations: Taking Metoprolol 25 mg once daily. Stable. COPD: Follows with Pulmonary, Dr. Owen at [facility] for this as well as lung nodules. Was referred to Hem/Onc and had bx done in September. Uses inhalers daily rescue inhalers, nebulizer tx and 2 L of oxygen at night and during day prn. Had Walk test done recently, was better. Still requires O2 at night, day time is better. Was seen in on 12/09/22 for COPD Exacerbation. Is feeling better then she was. Was treated with Zpak and Prednisone. Weight loss: down 5 pounds; discussed increasing oral intake. HM - Pt's received 3 pneumonia shots. Past medical history, appointments, medications, allergies reviewed. Previous Medical History PAST MEDICAL HISTORY Diagnosis Date Acid reflux Back pain COPD (chronic obstructive pulmonary disease) ([facility]) 2016 FEV1 0.95L, 40% pred. COPD (chronic obstructive pulmonary disease) ([facility]) Kidney stones Osteopenia frax score 4% hip fracture risk 2017 start fosamax repeat imaging 1-2 years Unspecified asthma(493.90) Previous Surgical History PAST SURGICAL HISTORY Procedure Laterality Date COLONOSCOPY 01/20/2022 COLONOSCOPY FLX DX W/COLLJ SPEC WHEN PFRMD 05/27/2011 Colonoscopy CYSTO CALIBRATION DILAT URTL STRIX/STENOSIS N/A 11/22/2018 EGD W/O BRSH SPEC VARICIES INJ 01/20/2022 LAPAROSCOPY SURG CHOLECYSTECTOMY 2005 Cholecystectomy, lap LIG/TRNSXJ FLP TUBE ABDL/VAG APPR UNI/BI Tubal ligation LITHOTRIPSY XTRCORP SHOCK WAVE Lithotripsy LUNG BIOPSY 2021 PAST SURGICAL HISTORY OF 1982 lung biopsy PAST SURGICAL HISTORY OF Right 05/2020 CT guided biopsy on Lung. Dr. Brayden ALONSO OPER STRES INCONTINENCE 08/2011 Family History FAMILY HISTORY Problem Relation Age of Onset Blood Disease Father Blood Clots Heart Father Kidney Disease Sister Diabetes Sister Hypertension Sister other (Blood Clots) Sister COPD Sister Emphysema Sister other (Blood Clots) Sister Hypertension Sister Hypertension Brother Diabetes Brother Heart Attack Brother Hypertension Brother Kidney Disease Brother Diabetes Brother Cancer Maternal Grandmother Lung other (Other) Paternal Grandmother with TB. Did not live with patient. Heart Daughter Hypertension Son Colon Cancer Other Nephew Patient Allergies ALLERGIES Allergen Reactions Bactrim [Sulfametho* Other: See Comments [place] sick, barely could breath. [place] deathly sick . GI upset Penicillins Anaphylaxis As a child passed out in md office after PCN injection. Zoloft [Sertraline * GI Upset GI upset, chest burning, muscle ache Ipratropium Other: See Comments Blurry vision, abdominal cramping, tremor, headache. Tudorza Pressair [A* Other: See Comments Heart palpitations, blurry vision, abdominal cramping, tremor, headache. Aclidinium Other: See Comments Cymbalta [Duloxetin* Intolerance panic Elavil [Amitriptyli* Intolerance GI upset, chest burning Fluticasone-Umeclid* Other: See Comments Gabapentin Intolerance Cough, sob, anxiety, increased drowsiness Incruse Ellipta [Um* Other: See Comments Heart palpitations, blurry vision, abdominal cramping, tremor, headache. Levofloxacin Other: See Comments pressure in head. Feel like she is going to throw up and pass out. Lyrica [Pregabalin] Other: See Bertin (more content not included)... [facility] 12-09-2022 Note HNO ID: [id number] Author: Francisco Palma APRN.CONFIDENTIAL SECRETARY Service: ? Author Type: Nurse Practitioner Type: Progress Notes Filed: 12/09/2022 4:54 PM Note Text: Subjective HPI Nontoxic-appearing female presents urgent care chief complaint cough increased sputum production. Patient states cough and wheezing has worsened in the last 5 to 6 days. History of COPD exacerbations this feels similar. Has been using rescue inhaler more frequently. Has noticed increased sputum production. Last hospitalization due to COPD exacerbation was beginning of this year. Denies any known sick contacts. Denies any fevers chest pain hemoptysis pleuritic pain nausea vomiting abdominal pain change in bowel or bladder habits. Past medical history prescription medication use allergies reviewed. .Patient presents with: Cough: Sob, wheezing, fatigue x 6 days PAST MEDICAL HISTORY Diagnosis Date Acid reflux Back pain COPD (chronic obstructive pulmonary disease) ([facility]) 2016 FEV1 0.95L, 40% pred. COPD (chronic obstructive pulmonary disease) ([facility]) Kidney stones Osteopenia frax score 4% hip fracture risk 2017 start fosamax repeat imaging 1-2 years Unspecified asthma(493.90) PAST SURGICAL HISTORY Procedure Laterality Date COLONOSCOPY 01/20/2022 COLONOSCOPY FLX DX W/COLLJ SPEC WHEN PFRMD 05/27/2011 Colonoscopy CYSTO CALIBRATION DILAT URTL STRIX/STENOSIS N/A 11/22/2018 EGD W/O BRSH SPEC VARICIES INJ 01/20/2022 LAPAROSCOPY SURG CHOLECYSTECTOMY 2005 Cholecystectomy, lap LIG/TRNSXJ FLP TUBE ABDL/VAG APPR UNI/BI Tubal ligation LITHOTRIPSY XTRCORP SHOCK WAVE Lithotripsy LUNG BIOPSY 2021 PAST SURGICAL HISTORY OF 1982 lung biopsy PAST SURGICAL HISTORY OF Right 05/2020 CT guided biopsy on Lung. Dr. Brayden ALONSO OPER STRES INCONTINENCE 08/2011 ALLERGIES Bactrim [Sulfamethoxazole-Trimethoprim] , Penicillins, Zoloft [Sertraline Hcl], Ipratropium, Tudorza Pressair [Aclidinium [place]], Aclidinium, Cymbalta [Duloxetine], Elavil [Amitriptyline], Qqysmhlwgxy-Kvrzqttua-Xnuihcyn, Gabapentin, Incruse Ellipta [Umeclidinium], Levofloxacin, Lyrica [Pregabalin], Methylprednisone, Sertraline, Sulfamethoxazole, Trimethoprim, and Doxycycline MEDICATIONS tiZANidine (ZANAFLEX) 2 mg tablet Take 1-2 tablets every 8 hours as needed for muscle spasm related pain [START ON 12/20/2022] HYDROcodone-acetaminophen (NORCO) 5-325 mg per tablet Take 1 tablet by mouth every 6 hours as needed for pain for up to 30 days. Take one pill 4 times daily as needed for back pain Do not start before December 20, 2022. HYDROcodone-acetaminophen (NORCO) 5-325 mg per tablet Take 1 tablet by mouth every 6 hours as needed for pain for up to 30 days. Take one pill 4 times daily as needed for back pain Do not start before November 20, 2022. HYDROcodone-acetaminophen (NORCO) 5-325 mg per tablet take 1 tablet by mouth every 6 hours if needed for pain hydrOXYzine HCl (ATARAX) 25 mg tablet Take 1 tablet by mouth twice daily as needed for anxiety. PARoxetine (PAXIL) 10 mg tablet take 1 tablet by mouth once daily alendronate (FOSAMAX) 70 mg tablet Take 1 tablet by mouth one time a week. In AM with cup of water on empty stomach. Nothing else by mouth and stay upright for 30 min. rosuvastatin (CRESTOR) 10 mg tablet take 1 tablet by mouth at bedtime COMBIVENT RESPIMAT 20-100 mcg/actuation inhaler metoprolol succinate ER (TOPROL XL) 25 mg 24 hr tablet Take 1 tablet by mouth once daily. loratadine (CLARITIN) 10 mg tablet Take 1 tablet by mouth once daily as needed. FOR ALLERGY SYMPTOMS ALBUTEROL SULFATE HFA INHALATION Inhale as instructed. famotidine (PEPCID) 20 mg tablet Take 1 tablet by mouth twice daily. polyethylene glycol 3350 (MIRALAX) 17 gram/dose powder Take 17 g by mouth once daily. As needed for constipation fluticasone (FLONASE) 50 mcg/actuation nasal spray place 1 spray into each nostril twice a day Nebulizer Accessories kit 4 kits per month. Dx J44.9 albuterol (PROVENTIL) 2.5 mg /3 mL (0.083 %) nebulizer solution Use 3 mL via nebulizer every 4 hours as needed for Wheezing/Shortness of Breath. Use over 5-15minutes. Cholecalciferol, Vitamin D3, 2,000 unit cap Take 1 capsule by mouth once daily. DULERA 200-5 mcg/actuation inhaler Inhale 2 Puffs as instructed twice daily. FAMILY HISTORY Problem Relation Age of Onset Blood Disease Father Blood Clots Heart Father Kidney Disease Sister Diabetes Sister Hypertension Sister other (Blood Clots) Sister COPD Sister Emphysema Sister other (Blood Clots) Sister Hypertension Sister Hypertension Brother Diabetes Brother Heart Attack Brother Hypertension Brother Kidney Disease Brother Diabetes Brother Cancer Maternal Grandmother Lung other (Other) Paternal Grandmother with TB. Did not live with patient. Heart Daughter Hypertension Son Colon Cancer Other Nephew Social History Tobacco Use Smoking status: Every Day Packs/day: 1.00 Ye (more content not included)... [facility] 12-09-2022 History of Presen t illness Narrative Subjective HPI Nontoxic-appearing female presents urgent care chief complaint cough increased sputum production. Patient states cough and wheezing has worsened in the last 5 to 6 days. History of COPD exacerbations this feels similar. Has been using rescue inhaler more frequently. Has noticed increased sputum production. Last hospitalization due to COPD exacerbation was beginning of this year. Denies any known sick contacts. Denies any fevers chest pain hemoptysis pleuritic pain nausea vomiting abdominal pain change in bowel or bladder habits. Past medical history prescription medication use allergies reviewed. .Patient presents with: Cough: Sob, wheezing, fatigue x 6 days PAST MEDICAL HISTORY Diagnosis Date Acid reflux Back pain COPD (chronic obstructive pulmonary disease) ([facility]) 2016 FEV1 0.95L, 40% pred. COPD (chronic obstructive pulmonary disease) ([facility]) Kidney stones Osteopenia frax score 4% hip fracture risk 2017 start fosamax repeat imaging 1-2 years Unspecified asthma(493.90) PAST SURGICAL HISTORY Procedure Laterality Date COLONOSCOPY 01/20/2022 COLONOSCOPY FLX DX W/COLLJ SPEC WHEN PFRMD 05/27/2011 Colonoscopy CYSTO CALIBRATION DILAT URTL STRIX/STENOSIS N/A 11/22/2018 EGD W/O BRSH SPEC VARICIES INJ 01/20/2022 LAPAROSCOPY SURG CHOLECYSTECTOMY 2005 Cholecystectomy, lap LIG/TRNSXJ FLP TUBE ABDL/VAG APPR UNI/BI Tubal ligation LITHOTRIPSY XTRCORP SHOCK WAVE Lithotripsy LUNG BIOPSY 2021 PAST SURGICAL HISTORY OF 1982 lung biopsy PAST SURGICAL HISTORY OF Right 05/2020 CT guided biopsy on Lung. Dr. Brayden ALONSO OPER STRES INCONTINENCE 08/2011 ALLERGIES Bactrim [Sulfamethoxazole-Trimethoprim] , Penicillins, Zoloft [Sertraline Hcl], Ipratropium, Tudorza Pressair [Aclidinium [place]], Aclidinium, Cymbalta [Duloxetine], Elavil [Amitriptyline], Jayukzrajvd-Mlogzozmk-Rxtdjwsq, Gabapentin, Incruse Ellipta [Umeclidinium], Levofloxacin, Lyrica [Pregabalin], Methylprednisone, Sertraline, Sulfamethoxazole, Trimethoprim, and Doxycycline MEDICATIONS tiZANidine (ZANAFLEX) 2 mg tablet Take 1-2 tablets every 8 hours as needed for muscle spasm related pain [START ON 12/20/2022] HYDROcodone-acetaminophen (NORCO) 5-325 mg per tablet Take 1 tablet by mouth every 6 hours as needed for pain for up to 30 days. Take one pill 4 times daily as needed for back pain Do not start before December 20, 2022. HYDROcodone-acetaminophen (NORCO) 5-325 mg per tablet Take 1 tablet by mouth every 6 hours as needed for pain for up to 30 days. Take one pill 4 times daily as needed for back pain Do not start before November 20, 2022. HYDROcodone-acetaminophen (NORCO) 5-325 mg per tablet take 1 tablet by mouth every 6 hours if needed for pain hydrOXYzine HCl (ATARAX) 25 mg tablet Take 1 tablet by mouth twice daily as needed for anxiety. PARoxetine (PAXIL) 10 mg tablet take 1 tablet by mouth once daily alendronate (FOSAMAX) 70 mg tablet Take 1 tablet by mouth one time a week. In AM with cup of water on empty stomach. Nothing else by mouth and stay upright for 30 min. rosuvastatin (CRESTOR) 10 mg tablet take 1 tablet by mouth at bedtime COMBIVENT RESPIMAT 20-100 mcg/actuation inhaler metoprolol succinate ER (TOPROL XL) 25 mg 24 hr tablet Take 1 tablet by mouth once daily. loratadine (CLARITIN) 10 mg tablet Take 1 tablet by mouth once daily as needed. FOR ALLERGY SYMPTOMS ALBUTEROL SULFATE HFA INHALATION Inhale as instructed. famotidine (PEPCID) 20 mg tablet Take 1 tablet by mouth twice daily. polyethylene glycol 3350 (MIRALAX) 17 gram/dose powder Take 17 g by mouth once daily. As needed for constipation fluticasone (FLONASE) 50 mcg/actuation nasal spray place 1 spray into each nostril twice a day Nebulizer Accessories kit 4 kits per month. Dx J44.9 albuterol (PROVENTIL) 2.5 mg /3 mL (0.083 %) nebulizer solution Use 3 mL via nebulizer every 4 hours as needed for Wheezing/Shortness of Breath. Use over 5-15minutes. Cholecalciferol, Vitamin D3, 2,000 unit cap Take 1 capsule by mouth once daily. DULERA 200-5 mcg/actuation inhaler Inhale 2 Puffs as instructed twice daily. FAMILY HISTORY Problem Relation Age of Onset Blood Disease Father Blood Clots Heart Father Kidney Disease Sister Diabetes Sister Hypertension Sister other (Blood Clots) Sister COPD Sister Emphysema Sister other (Blood Clots) Sister Hypertension Sister Hypertension Brother Diabetes Brother Heart Attack Brother Hypertension Brother Kidney Disease Brother Diabetes Brother Cancer Maternal Grandmother Lung other (Other) Paternal Grandmother with TB. Did not live with patient. Heart Daughter Hypertension Son Colon Cancer Other Nephew Social History Tobacco Use Smoking status: Every Day Packs/day: 1.00 Years: 33.00 Pack years: 33.00 Types: Cigarettes Start date: 04/10/1981 Smokeless tobacco: Never Tobacco comments: smoking 1 ppd. Vaping Use Vaping Use: Never used Substance Use Topics Alcohol use: No Drug use: No BP 120/76 Pulse 76 Temp 37.2 C (98.9 F) Resp 20 Wt 46.7 kg (103 lb) LMP (LMP Unknown) SpO2 94% BMI 18.84 kg/m Review of Systems Constitutional: Negative for chills, fever and malaise/fatigue. HENT: Negative for congestion, ear discharge, ear pain, sinus pain and sore throat. Eyes: Negative for blurred vision, pain, discharge and redness. Respiratory: Positive for cough, sputum production, shortness of breath and wheezing. Negative for hemoptysis and stridor. Cardiovascular: Negative for chest pain. Gastrointestinal: Negative for abdominal pain, diarrhea, nausea and vomiting. Musculoskeletal: Negative for myalgias. Skin: Negative for itching and rash. Neurological: Negative for dizziness and headaches. Objective Physical Exam Constitutional: General: She is not in acute distress. Appearance: She is not diaphoretic. HENT: Head: Normocephalic. Nose: Nose normal. Mouth/Throat: Mouth: Mucous membranes are moist. Pharynx: Oropharynx is clear. No oropharyngeal exudate or posterior oropharyngeal erythema. Eyes: Conjunctiva/sclera: Conjunctivae normal. Pupils: Pupils are equal, round, and reactive to light. Cardiovascular: Rate and Rhythm: Normal rate and regular rhythm. Heart sounds: Normal heart sounds. Pulmonary: Effort: Pulmonary effort is normal. No tachypnea, accessory muscle usage or respiratory distress. Breath sounds: No stridor. Wheezing present. No rhonchi or rales. Abdominal: Palpations: Abdomen is soft. Tenderness: There is no abdominal tenderness. There is no guarding. Musculoskeletal: Cervical back: Normal range of motion and neck supple. No rigidity or tenderness. Lymphadenopathy: Cervical: No cervical adenopathy. Skin: General: Skin is warm and dry. Neurological: Mental Status: She is alert and oriented to person, place, and time. ASSESSMENT/PLAN: 1. COPD with exacerbation ([facility]) - ICD9: 491.21, ICD10: J44.1 - AZITHROMYCIN 250 MG TABLET - PREDNISONE 20 MG TABLET Patient nontoxic-appearing. Some wheezing and crackles noted on auscultation. No increased work of breathing. Diagnosed with COPD exacerbation. Placed on azithromycin and prednisone due to lengthy medication allergies. Will not take azithromycin and hydroxyzine together. Risk of QT prolongation discussed. Risk of medication use discussed. Red flags prompt reevaluation discussed. Patient was educated on supportive therapies. Patient will follow up with primary care provider 2- 3 days. Patient was instructed to immediately proceed to emergency room for any new, worsening, or symptoms lasting longer than anticipated. The patient's clinical presentation is otherwise unremarkable at this time. Based on exam and clinical finding, the patient is stable for discharge. Plan of care was discussed with patient. Patient verbalizes understanding and agrees to plan of care. This note was generated using [employer] software. It may contain errors in wording, punctuation, or spelling. Francisco Palma APRN.DANIELLA documented in this encounter [facility] 11-05-2022 Note HNO ID: [id number] Author: Deonna Kennedy MA Service: ? Author Type: Hot Die Press Feeder Type: Progress Notes Filed: 11/05/2022 2:55 PM Note Text: Review of Systems Constitutional: Negative for activity change, chills, fever and unexpected weight change. Gastrointestinal: Negative for bowel retention or incontinence Genitourinary: Negative for difficulty urinating. Negative for bladder retention or incontinence Musculoskeletal: Positive for back pain, gait problem, myalgias, neck pain and neck stiffness. Negative for arthralgias and joint swelling. Neurological: Positive for weakness and numbness. Negative for headaches. Psychiatric/Behavioral: Positive for sleep disturbance. Negative for dysphoric mood and suicidal ideas. The patient is nervous/anxious. [facility] 11-05-2022 History of Presen t illness Narrative Review of Systems Constitutional: Negative for activity change, chills, fever and unexpected weight change. Gastrointestinal: Negative for bowel retention or incontinence Genitourinary: Negative for difficulty urinating. Negative for bladder retention or incontinence Musculoskeletal: Positive for back pain, gait problem, myalgias, neck pain and neck stiffness. Negative for arthralgias and joint swelling. Neurological: Positive for weakness and numbness. Negative for headaches. Psychiatric/Behavioral: Positive for sleep disturbance. Negative for dysphoric mood and suicidal ideas. The patient is nervous/anxious. Images from the original note were not included. [facility] Name: Jessica Gloria : 1955 Purpose: 2 month follow-up Today's Date: 11/05/2022 Last Visit: 08/20/2022 Chief complaint: Neck, Thoracic and Low back Pain Interval History: Jessica Gloria returns today for a follow-up encounter, reporting that since last encounter, the overall pain and functional disability arising from the chief complaint has not improved. Pain primarily in the left side of her neck again. Pain has limited her ability to turn her head to the left. She had a PET scan, saw an Oncologist, told that she would not be able to tolerate a pulmonary biopsy. She continues to follow with Pulmonology for COPD. She is having less cramps in the feet on her current pain regimen. She is taking the Zanaflex more regularly and this is helping. Pain Description: Timing: constant Character: Aching and Dull Primary Location: Neck, thoracic and low back Radiation: none The patient denies difficulty with bowel or bladder control. Regarding medications: The following medication(s) were started or modified: none The following medication(s) were discontinued: none The following medication(s) were continued: [place] 5/325, TID-QID #105/mo 10/21/2022 #remainin Last taken: 2pm today Tizanidine 4mg qHS PRN Overall, the medication(s) have helped improve pain and ADL's. They are well-tolerated. The following procedures were performed: DATE PROCEDURE IMPROVEMENT none Physical Therapy or Chiropractics was not prescribed. The following new imaging or diagnostic tests were obtained, with relevant findings reported below: none Notable Events During Course of Treatment: 04/2022 - Reports she was back in the hospital for SOB and COPD. She was discharged on 05/28/22. She was on steroids to help. Current Status: INTAKE PAIN ASSESSMENT 08/20/2022 11/05/2022 Are you having pain associated with your visit today? Yes, Provider notified Yes, Provider notified Pain Scales Verbal (Numeric Rating or Visual Analog Scale) Verbal (Numeric Rating or Visual Analog Scale) Pain Level 6 7 Pain Location Back-Lower Neck-Posterior Description Aching Aching;Sore;Stiffness Duration Amount of Time - - Duration Units Years Years Frequency Intermittent Continuous Intervention/Comfort measure Medication;Relaxation Reposition;Relaxation;Positioni ng Comments - - Pain Assessment - - Current Anti-Coagulant Use: No Risk Assessment: ERIKA-7: No flowsheet data found.(0-4) minimal anxiety, (5-9) mild anxiety, (10-14) moderate anxiety, (15-21) severe anxiety PHQ-9: No flowsheet data found.(0-4) minimal depression, (5-9) mild depression, (10-14) moderate depression, (15-19) moderately severe depression, (20-27) severe depression Compliance: PDMP website checked and validated. All prescriptions have been APPROPRIATELY filled. No suspicious activity was identified. On 11/05/2022 by Sherry Florez MD [facility] 02/06/2021 03/12/2021 08/07/2021 09/30/2021 02/04/2022 04/09/2022 08/20/2022 Questionnaire - - - - - - - Completed Date - - - - - - - Questionnaire URINE DRUG SCREEN URINE DRUG SCREEN URINE DRUG SCREEN URINE DRUG SCREEN URINE DRUG SCREEN URINE DRUG SCREEN URINE DRUG SCREEN Completed Date 02/06/2021 03/12/2021 08/07/2021 09/30/2021 02/04/2022 04/09/2022 08/20/2022 Comments Saliva Random - - - - - Questionnaire NA/OIC - - NA/OIC - - NA/OIC Completed Date 02/06/2021 - - 09/30/2021 - - 08/20/2022 Questionnaire Opiod Risk Tool - - - - - - Completed Date 02/06/2021 - - - - - - No question data found. Note: UDS Results are appropriate unless indicated otherwise Compliance: Safety Checklist: Are you taking proper precautions to safe guard your medication? Yes Taking the medications as prescribed? Yes Getting pain medications from another physician? No Obtaining pain medication from another source? No Sharing medications with friends/family? No Quality of life improved as a result of taking these medications? Yes Any side effect with this medication? No Justification for Continued Opioid Care: Adequate analgesia? Yes Aberrant drug seeking behavior? No Adverse reactions? No Medications improve quality of life? Yes Allergies: ALLERGIES Allergen Reactions Bactrim [Sulfametho* Other: See Comments [place] sick, barely could breath. [place] deathly sick . GI upset Penicillins Anaphylaxis As a child passed out in md office after PCN injection. Zoloft [Sertraline * GI Upset GI upset, chest burning, muscle ache Ipratropium Other: See Comments Blurry vision, abdominal cramping, tremor, headache. Tudorza Pressair [A* Other: See Comments Heart palpitations, blurry vision, abdominal cramping, tremor, headache. Aclidinium Other: See Comments Cymbalta [Duloxetin* Intolerance panic Elavil [Amitriptyli* Intolerance GI upset, chest burning Fluticasone-Umeclid* Other: See Comments Gabapentin Intolerance Cough, sob, anxiety, increased drowsiness Incruse Ellipta [Um* Other: See Comments Heart palpitations, blurry vision, abdominal cramping, tremor, headache. Levofloxacin Other: See Comments pressure in head. Feel like she is going to throw up and pass out. Lyrica [Pregabalin] Other: See Comments Chest discomfort,burping,sob Methylprednisone Myalgia Sertraline GI Upset Sulfamethoxazole Other: See Comments Trimethoprim Other: See Comments Doxycycline Mental Status Change Makes her feel spacey . If given abx prefer to use this one out of all with the least amount of side effects. Data Reviewed: Reviewed personally on today's date. Relevant Imaging: MRI Spine Report MRI THORACIC SPINE WO IVCON Exam End: 12/30/2021 3:01 PM (Final result) Narrative: * * *Final Report* * * DATE OF EXAM: Dec 30 2021 3:01PM WR [id number] - MRI THORACIC SPINE WO IVCON / PROCEDURE REASON: Radiculopathy, thoracic region * * * * Physician Interpretation * * * * EXAMINATION: MRI CERVICAL SPINE WO IVCON, MRI THORACIC SPINE WO IVCON CLINICAL HISTORY: Cervical and thoracic radiculopathy. TECHNIQUE: Routine cervical and thoracic spine MR protocol without gadolinium. MQ: [id number] COMPARISON: None. RESULT: CERVICAL: Counting reference: Craniocervical junction. Anatomic Variants: None. Localizer images: Patchy infiltrates are noted in the upper lobes there appears to be thickening or small amount of fluid in the right major fissure on the dining service worker images but evaluation of the lungs is limited by MRI. Alignment: Accentuation of the normal cervical lordosis likely secondary to accentuated thoracic kyphosis. Craniocervical junction: Alignment at the craniocervical junction is within normal limits. Cord: The cervical spinal cord is within normal limits of signal intensity and morphology. Bone marrow signal/fracture: No evidence of pathologic marrow infiltration. No evidence of prior fracture. Cervical soft tissues: The paraspinal soft tissues are within normal limits. C2-C3: Canal and foramina are patent. C3-C4: Mild asymmetric facet degenerative changes. Canal and foramina remain patent. C4-C5: Canal and foramina are patent. C5-C6: Mild asymmetric facet degenerative changes. Canal and foramina remain patent. C6-C7: Canal and foramina are patent. C7-T1: Canal and foramina are patent. THORACIC: Counting reference: Lumbosacral junction. For the purposes of this report, L4-5 is considered the level of the iliac crest and assume there are 5 lumbar-type vertebrae. Anatomic variant: None. Audio Visual Manager (topogram) images: No additional findings. Alignment: Accentuation of the normal thoracic kyphosis. Mild to moderate disc space narrowing is noted in the midthoracic spine. Cord: The thoracic spinal cord and conus are within normal limits of signal intensity and morphology. Bone marrow signal/fracture: No evidence of pathologic marrow infiltration. No evidence of prior fracture. Thoracic soft tissues: The paraspinal soft tissues are within normal limits. Canal and foramina: Thoracic canal and foramina are patent. Impression: IMPRESSION: Mild cervical and thoracic degenerative disc disease without significant canal or foraminal stenosis. Cervical Anatomic Variant: None. Assume 7 cervical vertebrae with counting from the craniocervical junction. Anatomic Thoracic/Lumbar Variant: None. L4-5 is considered the level of the iliac crest and assume there are 5 lumbar-type vertebrae. Hand Umbrella Tipper: PSCB Transcribe Date/Time: Dec 30 2021 3:18P Dictated by : RACHEAL MCKEON MD This examination was interpreted and the report reviewed and electronically signed by: RACHEAL MCKEON MD on Dec 30 2021 3:28PM EST DXA-Axial Skeleton 07/2022 Osteoporosis in the lumbar spine and left femoral neck. Pain Procedures: DATE PROCEDURE IMPROVEMENT 11/07/2021 RFA Right C3-4,4-5,5-6 80% x 3 months 08/06/2021 RFA Left T5-6,6-7,7-8 50% x 1 week 07/23/2021 RFA Right T5-6,6-7,7-8 50% x 1 week Current Medications, Past Medical History, Past Surgical History, Family History, Social History and Review of Systems: On today's date noted above, I have confirmed and edited as necessary, the PFSH and ROS obtained by others. Physical Exam: 11/05/22 1434 Pulse: 71 Resp: 18 SpO2: 95% Constitutional: underweight HEENT: Normal Cephalic, Atraumatic, Non-icteric sclera Eyes: Conjunctiva clear. No discharge from eyes Cardiovascular: Appears well perfused Lymphatic: No visible regional lymphadenopathy Skin: No visible rashes or ecchymosis Psychiatric: Full affect, Alert, Pleasant MSK: Extremities: no deficits or edema Gait: Normal. Ambulates unassisted Palpation: concordant pain with triggering left upper trapezius and middle trapezius, cervical paraspinals Neuro: Motor Strength: Upper and lower extremity 5/5 bilaterally Sensory: intact to light touch Diagnoses: (M79.18) Myofascial pain (primary encounter diagnosis) (M47.812) Cervical spondylosis without myelopathy (M47.814) Thoracic spondylosis without myelopathy Impression & Plan: 67 year old female, who presents with complaint(s) of chronic neck, mid and low back pain, facet-mediated, with myofascial overlay, here for medication refills. She is stable on her current medications. Jessica Gloria would benefit from the following to decrease pain, improve function and/or work participation, and improve quality of life: -Interventional Procedure: trigger point injection left upper and middle trapezius, cervical paraspinals The risks, benefits, alternative treatment options and prognosis of the procedure were discussed and all of the patient's questions/concerns were addressed to the patient s satisfaction. Unless explicitly instructed otherwise, patient was advised that they will need a milk tanker driver for after the procedure and that if no milk tanker driver is available and on site at the time of the procedure, the procedure will be cancelled. For any anticoagulants, the patient was advised on whether to continue or hold for this procedure. The patient expressed understanding and gave verbal consent to proceed. Medications: Engelhard 5/325, #105/mo, refill - encouraged to go to [facility] as much as possible Zanaflex 4mg qHS PRN - continue UDS, NAOIC/ORT: Reviewed and consistent, NAOIC/ORT up to date. She does admit to taking a few extra pain pills with her hospitalization. We discussed to take her medications no more than prescribed. She has no previous discrepancies, she voiced understanding. Functional Sabianism: none Additional Studies: none Referrals: none Additional: MBB/RFA, left C4-5,5-6 Patient reports they are happy with current treatment care plan. At this time will continued the patient's opioids today for 60 days. The patient continues to see benefit and improvement in their quality of life with adequate analgesia and ADLS's maintained. No adverse effects, no aberrant behaviors noted; OARRS reviewed and consistent. Risks of long-term medication use was reviewed and Patient advised the above medications may cause impairment of judgement while driving or operating machinery. Patient instructed on safe storage of medications We will re-evaluate opioid regimen in 60 days, office visit, to determine efficacy of treatment to ensure that we are using the lowest dose for maximum benefit. Today we discussed the use of opioids; and the risks of adverse events of prolonged and/or combined use. I offered RX for narcan, patient agrees to fill Rx and verbalized understanding of the above. Depending on response to the above plan, consider: TBD Follow-up: 2 months Attribution: In addition to reviewing the information noted above, some elements copied from my most recent clinical note(s), including the physical exam (completed in entirety today), and the impression and plan sections, have been updated where appropriate. All reflect current medical decision making from today's date. Sherry Florez MD Pain Management [facility] documented in this encounter [facility] 10-30-2022 Note HNO ID: [id number] Author: Sherry Florez MD Service: ? Author Type: Physician Type: Progress Notes Filed: 11/05/2022 2:55 PM Note Text: [facility] Name: Jessica Gloria : 1955 Purpose: 2 month follow-up Today's Date: 11/05/2022 Last Visit: 08/20/2022 Chief complaint: Neck, Thoracic and Low back Pain Interval History: Jessica Gloria returns today for a follow-up encounter, reporting that since last encounter, the overall pain and functional disability arising from the chief complaint has not improved. Pain primarily in the left side of her neck again. Pain has limited her ability to turn her head to the left. She had a PET scan, saw an Oncologist, told that she would not be able to tolerate a pulmonary biopsy. She continues to follow with Pulmonology for COPD. She is having less cramps in the feet on her current pain regimen. She is taking the Zanaflex more regularly and this is helping. Pain Description: Timing: constant Character: Aching and Dull Primary Location: Neck, thoracic and low back Radiation: none The patient denies difficulty with bowel or bladder control. Regarding medications: The following medication(s) were started or modified: none The following medication(s) were discontinued: none The following medication(s) were continued: Engelhard 5/325, TID-QID #105/mo 10/21/2022 #remainin Last taken: 2pm today Tizanidine 4mg qHS PRN Overall, the medication(s) have helped improve pain and ADL's. They are well-tolerated. The following procedures were performed: DATE PROCEDURE IMPROVEMENT none Physical Therapy or Chiropractics was not prescribed. The following new imaging or diagnostic tests were obtained, with relevant findings reported below: none Notable Events During Course of Treatment: 04/2022 - Reports she was back in the hospital for SOB and COPD. She was discharged on 05/28/22. She was on steroids to help. Current Status: INTAKE PAIN ASSESSMENT 08/20/2022 11/05/2022 Are you having pain associated with your visit today? Yes, Provider notified Yes, Provider notified Pain Scales Verbal (Numeric Rating or Visual Analog Scale) Verbal (Numeric Rating or Visual Analog Scale) Pain Level 6 7 Pain Location Back-Lower Neck-Posterior Description Aching Aching;Sore;Stiffness Duration Amount of Time - - Duration Units Years Years Frequency Intermittent Continuous Intervention/Comfort measure Medication;Relaxation Reposition;Relaxation;Positioni ng Comments - - Pain Assessment - - Current Anti-Coagulant Use: No Risk Assessment: ERIKA-7: No flowsheet data found.(0-4) minimal anxiety, (5-9) mild anxiety, (10-14) moderate anxiety, (15-21) severe anxiety PHQ-9: No flowsheet data found.(0-4) minimal depression, (5-9) mild depression, (10-14) moderate depression, (15-19) moderately severe depression, (20-27) severe depression Compliance: PDMP website checked and validated. All prescriptions have been APPROPRIATELY filled. No suspicious activity was identified. On 11/05/2022 by Sherry Florez MD [facility] 02/06/2021 03/12/2021 08/07/2021 09/30/2021 02/04/2022 04/09/2022 08/20/2022 Questionnaire - - - - - - - Completed Date - - - - - - - Questionnaire URINE DRUG SCREEN URINE DRUG SCREEN URINE DRUG SCREEN URINE DRUG SCREEN URINE DRUG SCREEN URINE DRUG SCREEN URINE DRUG SCREEN Completed Date 02/06/2021 03/12/2021 08/07/2021 09/30/2021 02/04/2022 04/09/2022 08/20/2022 Comments Saliva Random - - - - - Questionnaire NA/OIC - - NA/OIC - - NA/OIC Completed Date 02/06/2021 - - 09/30/2021 - - 08/20/2022 Questionnaire Opiod Risk Tool - - - - - - Completed Date 02/06/2021 - - - - - - No question data found. Note: UDS Results are appropriate unless indicated otherwise Compliance: Safety Checklist: Are you taking proper precautions to safe guard your medication? Yes Taking the medications as prescribed? Yes Getting pain medications from another physician? No Obtaining pain medication from another source? No Sharing medications with friends/family? No Quality of life improved as a result of taking these medications? Yes Any side effect with this medication? No Justification for Continued Opioid Care: Adequate analgesia? Yes Aberrant drug seeking behavior? No Adverse reactions? No Medications improve quality of life? Yes Allergies: ALLERGIES Allergen Reactions Bactrim [Sulfametho* Other: See Comments [place] sick, barely could breath. [place] deathly sick . GI upset Penicillins Anaphylaxis As a child passed out in md office after PCN injection. Zoloft [Sertraline * GI Upset GI upset, chest burning, muscle ache Ipratropium Other: See Comments Blurry vision, abdominal cramping, tremor, headache. Tudorza Pressair [A* Other: See Comments Heart palpitations, blurry vision, abdominal cramping, tremor, headache. Aclidinium Other: See Comments Cymbalta [Duloxe (more content not included)... [facility] 10-21-2022 Note Patient Outreach ([facility]) JESSICA GLORIA ([id number]) 1955 F Date Time Provider Department 10/21/22 ILEANA HARRISON During your visit today, we recorded the following information about you: Allergies As of Date: 10/21/2022 Noted Allergy Reaction BACTRIM (SULFAMETHOXAZOLE-TRIMETH*12/01 14 - Other: See Comments Comments: [place] sick, barely could breath. [place] deathly sick . GI upset PENICILLINS 04/24/2008 10 - Anaphylaxis Comments: As a child passed out in md office after PCN injection. ZOLOFT (SERTRALINE HCL) 05/19/2016 8 - GI Upset Comments: GI upset, chest burning, muscle ache IPRATROPIUM 05/19/2017 14 - Other: See Comments Comments: Blurry vision, abdominal cramping, tremor, headache. SIGIFREDO DUFFY (ACLIDINIUM BROM*06/14/2017 14 - Other: See Comments Comments: Heart palpitations, blurry vision, abdominal cramping, tremor, headache. ACLIDINIUM 12/04/2021 14 - Other: See Comments CYMBALTA (DULOXETINE) 01/17/2020 5 - Intolerance Comments: panic ELAVIL (AMITRIPTYLINE) 01/17/2020 5 - Intolerance Comments: GI upset, chest burning HCSTDOQZUNW-ELHHIPHNA-PYIMINDM 12/01/2021 14 - Other: See Comments GABAPENTIN 06/09/2016 5 - Intolerance Comments: Cough, sob, anxiety, increased drowsiness INCRUSE ELLIPTA (UMECLIDINIUM) 05/13/2017 14 - Other: See Comments Comments: Heart palpitations, blurry vision, abdominal cramping, tremor, headache. LEVOFLOXACIN 10/21/2017 14 - Other: See Comments Comments: pressure in head. Feel like she is going to throw up and pass out. LYRICA (PREGABALIN) 01/17/2020 14 - Other: See Comments Comments: Chest discomfort,burping,sob METHYLPREDNISONE 08/22/2015 17 - Myalgia SERTRALINE 12/04/2021 8 - GI Upset SULFAMETHOXAZOLE 10/31/2020 14 - Other: See Comments TRIMETHOPRIM 12/04/2021 14 - Other: See Comments DOXYCYCLINE 10/21/2017 1 - Mental Status Change Comments: Makes her feel spacey . If given abx prefer to use this one out of all with the least amount of side effects. Date Reviewed: 10/19/2022 Reviewed by: Ana Montgomery Ma - Fully Assessed Visit Diagnosis:Tobacco abuse [Z72.0] Order(s):[facility] [2577726] Order #: [id number]: 1 FUTURE Prescriptions as of 10/26/2022 - HYDROcodone-acetaminophen (NORCO) 5-325 mg per tablet take 1 tablet by mouth every 6 hours if needed for pain - hydrOXYzine HCl (ATARAX) 25 mg tablet Take 1 tablet by mouth twice daily as needed for anxiety. - PARoxetine (PAXIL) 10 mg tablet take 1 tablet by mouth once daily - alendronate (FOSAMAX) 70 mg tablet Take 1 tablet by mouth one time a week. In AM with cup of water on empty stomach. Nothing else by mouth and stay upright for 30 min. - rosuvastatin (CRESTOR) 10 mg tablet take 1 tablet by mouth at bedtime - COMBIVENT RESPIMAT 20-100 mcg/actuation inhaler - metoprolol succinate ER (TOPROL XL) 25 mg 24 hr tablet Take 1 tablet by mouth once daily. - loratadine (CLARITIN) 10 mg tablet Take 1 tablet by mouth once daily as needed. FOR ALLERGY SYMPTOMS - ALBUTEROL SULFATE HFA INHALATION Inhale as instructed. - famotidine (PEPCID) 20 mg tablet Take 1 tablet by mouth twice daily. - polyethylene glycol 3350 (MIRALAX) 17 gram/dose powder Take 17 g by mouth once daily. As needed for constipation - fluticasone (FLONASE) 50 mcg/actuation nasal spray place 1 spray into each nostril twice a day - Nebulizer Accessories kit 4 kits per month. Dx J44.9 - albuterol (PROVENTIL) 2.5 mg /3 mL (0.083 %) nebulizer solution Use 3 mL via nebulizer every 4 hours as needed for Wheezing/Shortness of Breath. Use over 5-15minutes. - Cholecalciferol, Vitamin D3, 2,000 unit cap Take 1 capsule by mouth once daily. - DULERA 200-5 mcg/actuation inhaler Inhale 2 Puffs as instructed twice daily. Meds Comments as of 01/11/2019: Pt hasn't started nicoderm patches, but has plans to quit when she moves Problem List As Of Date 10/21/2022 Noted Resolved Backache [M54.9] 07/04/2008 COPD (chronic obstructive pulmonary disease) (H*01/21/2010 Screen for colon cancer [Z12.11] 05/15/2011 05/12/2012 Constipated [K59.00] 05/15/2011 05/12/2012 Bloating symptom [R14.0] 05/15/2011 Abdominal pain, suprapubic [R10.2] 05/15/2011 Abdominal pain, other specified site [R10.9] 05/27/2011 05/12/2012 Flatulence, eructation, and gas pain [R14.3, R1*05/27/2011 05/12/2012 Unspecified constipation [K59.00] 05/27/2011 05/12/2012 Special screening for malignant neoplasms, colo*05/27/2011 05/12/2012 CRISTOBAL (stress urinary incontinence, female) [N39.*10/28/2011 Nephrolithiasis [N20.0] 08/14/2013 Generalized abdominal pain [R10.84] 08/24/2013 Urgency of urination [R39.15] 08/24/2013 Frequency of urination [R35.0] 08/24/2013 Kidney stone [N20.0] 10/17/2013 Bronchitis [J40] 05/03/2014 05/03/2015 Acid reflux [K21.9] 10/30/2014 Anxiety [F41.9] 10/30/2014 Nocturnal hypoxemia (more content not included)... [facility] 10-19-2022 Note HNO ID: [id number] Author: Ankit Martinez MD Service: ? Author Type: Physician Type: Progress Notes Filed: 10/19/2022 3:06 PM Note Text: Chief Complaint Patient presents with: Follow Up HPI Jessica Gloria is a 67 year old female who presents here today for 2 month follow up. Here today for a medication follow up. Smoking - Still smoking about 1 ppd. Notes it's too hard to quit. Knows this hurts her lungs but it's too hard to quit. Wishes she had the will power her did. Has been given Chantix previously not used. ERIKA/Depression: Taking Paxil 10 mg 0.5 tab daily and Hydroxyzine 25 mg 1 pill once daily, too scared to take twice daily generally only using at night. With the Paxil she states she has decreased appetite, not eating well. Feels her taste is different or off, nothing sounds good that usually does. Also makes her feel weak and more short of breath. Unsure if this is side effects of the medication. Admits she just started it a couple weeks ago, so could be side effects. Worries due to previous reactions of medications. States at this time she just feels irritable, but anxiety has improved some. Feels a lot of her stress is related to her and his health problems vs hers. Osteoporosis - Takes Fosamax 70 mg once weekly. Palpitations - Takes Metoprolol 25 mg once daily for palpitations. Worries about her sodium level being low has been hospitalized in the past for low sodium per patient. GERD - Uses Pepcid prn for GI symptoms. COPD - Follows with Pulmonary, Dr. Owen at [facility]. Was referred to Hem/Onc due to some findings, but they felt she was not surgically stable to have surgery. She had a CT scan, believes she has nodules but has not heard back on those results. Will be following up with them on 10/21 to discuss possible procedure/biopsy. Uses daily inhaler, Rescue inhaler and Nebulizer. Does feel her breathing is getting worse. Does use O2 at night 2 L. Is approved to use during the the day when needed. Lipids - Takes Crestor 10 mg once daily. Hasn't been eating as much, food just doesn't sound good. Denies much exercise other then when going to the stores, will walk around. Pain - Chronic back pain. Follows with Pain Mgmt, taking Engelhard 5-325 mg 1 tab every 6 hours prn daily. HM - Declines having Adv Dir/Living Will, needs to do this. Declines wanting any further Covid vaccines. Past medical history, appointments, medications, allergies reviewed. Previous Medical History PAST MEDICAL HISTORY Diagnosis Date Acid reflux Back pain COPD (chronic obstructive pulmonary disease) ([facility]) 2016 FEV1 0.95L, 40% pred. COPD (chronic obstructive pulmonary disease) ([facility]) Kidney stones Osteopenia frax score 4% hip fracture risk 2017 start fosamax repeat imaging 1-2 years Unspecified asthma(493.90) Previous Surgical History PAST SURGICAL HISTORY Procedure Laterality Date COLONOSCOPY 01/20/2022 COLONOSCOPY FLX DX W/COLLJ SPEC WHEN PFRMD 05/27/2011 Colonoscopy CYSTO CALIBRATION DILAT URTL STRIX/STENOSIS N/A 11/22/2018 EGD W/O BRSH SPEC VARICIES INJ 01/20/2022 LAPAROSCOPY SURG CHOLECYSTECTOMY 2005 Cholecystectomy, lap LIG/TRNSXJ FLP TUBE ABDL/VAG APPR UNI/BI Tubal ligation LITHOTRIPSY XTRCORP SHOCK WAVE Lithotripsy LUNG BIOPSY 2021 PAST SURGICAL HISTORY OF 1982 lung biopsy PAST SURGICAL HISTORY OF Right 05/2020 CT guided biopsy on Lung. Dr. Brayden ALONSO OPER STRES INCONTINENCE 08/2011 Family History FAMILY HISTORY Problem Relation Age of Onset Blood Disease Father Blood Clots Heart Father Kidney Disease Sister Diabetes Sister Hypertension Sister other (Blood Clots) Sister COPD Sister Emphysema Sister other (Blood Clots) Sister Hypertension Sister Hypertension Brother Diabetes Brother Heart Attack Brother Hypertension Brother Kidney Disease Brother Diabetes Brother Cancer Maternal Grandmother Lung other (Other) Paternal Grandmother with TB. Did not live with patient. Heart Daughter Hypertension Son Colon Cancer Other Nephew Patient Allergies ALLERGIES Allergen Reactions Bactrim [Sulfametho* Other: See Comments [place] sick, barely could breath. [place] deathly sick . GI upset Penicillins Anaphylaxis As a child passed out in md office after PCN injection. Zoloft [Sertraline * GI Upset GI upset, chest burning, muscle ache Ipratropium Other: See Comments Blurry vision, abdominal cramping, tremor, headache. Tudorza Pressair [A* Other: See Comments Heart palpitations, blurry vision, abdominal cramping, tremor, headache. Aclidinium Other: See Comments Cymbalta [Duloxetin* Intolerance panic Elavil [Amitriptyli* Intolerance GI upset, chest burning Fluticasone-Umeclid* Other: See Comments Gabapentin Intolerance Cough, sob, anxiety, increased drowsiness Incruse Ellipta [Um* Other: See Comments Heart palpitations, blurry vision, abdominal cramping, (more content not included)... [facility] 10-19-2022 History of Presen t illness Narrative Chief Complaint Patient presents with: Follow Up HPI Jessica Gloria is a 67 year old female who presents here today for 2 month follow up. Here today for a medication follow up. Smoking - Still smoking about 1 ppd. Notes it's too hard to quit. Knows this hurts her lungs but it's too hard to quit. Wishes she had the will power her did. Has been given Chantix previously not used. ERIKA/Depression: Taking Paxil 10 mg 0.5 tab daily and Hydroxyzine 25 mg 1 pill once daily, too scared to take twice daily generally only using at night. With the Paxil she states she has decreased appetite, not eating well. Feels her taste is different or off, nothing sounds good that usually does. Also makes her feel weak and more short of breath. Unsure if this is side effects of the medication. Admits she just started it a couple weeks ago, so could be side effects. Worries due to previous reactions of medications. States at this time she just feels irritable, but anxiety has improved some. Feels a lot of her stress is related to her and his health problems vs hers. Osteoporosis - Takes Fosamax 70 mg once weekly. Palpitations - Takes Metoprolol 25 mg once daily for palpitations. Worries about her sodium level being low has been hospitalized in the past for low sodium per patient. GERD - Uses Pepcid prn for GI symptoms. COPD - Follows with Pulmonary, Dr. Owen at [facility]. Was referred to Hem/Onc due to some findings, but they felt she was not surgically stable to have surgery. She had a CT scan, believes she has nodules but has not heard back on those results. Will be following up with them on 10/21 to discuss possible procedure/biopsy. Uses daily inhaler, Rescue inhaler and Nebulizer. Does feel her breathing is getting worse. Does use O2 at night 2 L. Is approved to use during the the day when needed. Lipids - Takes Crestor 10 mg once daily. Hasn't been eating as much, food just doesn't sound good. Denies much exercise other then when going to the stores, will walk around. Pain - Chronic back pain. Follows with Pain Mgmt, taking Engelhard 5-325 mg 1 tab every 6 hours prn daily. HM - Declines having Adv Dir/Living Will, needs to do this. Declines wanting any further Covid vaccines. Past medical history, appointments, medications, allergies reviewed. Previous Medical History PAST MEDICAL HISTORY Diagnosis Date Acid reflux Back pain COPD (chronic obstructive pulmonary disease) ([facility]) 2016 FEV1 0.95L, 40% pred. COPD (chronic obstructive pulmonary disease) ([facility]) Kidney stones Osteopenia frax score 4% hip fracture risk 2016 start fosamax repeat imaging 1-2 years Unspecified asthma(493.90) Previous Surgical History PAST SURGICAL HISTORY Procedure Laterality Date COLONOSCOPY 01/20/2022 COLONOSCOPY FLX DX W/COLLJ SPEC WHEN PFRMD 05/27/2011 Colonoscopy CYSTO CALIBRATION DILAT URTL STRIX/STENOSIS N/A 11/22/2018 EGD W/O BRSH SPEC VARICIES INJ 01/20/2022 LAPAROSCOPY SURG CHOLECYSTECTOMY 2005 Cholecystectomy, lap LIG/TRNSXJ FLP TUBE ABDL/VAG APPR UNI/BI Tubal ligation LITHOTRIPSY XTRCORP SHOCK WAVE Lithotripsy LUNG BIOPSY 2021 PAST SURGICAL HISTORY OF 1982 lung biopsy PAST SURGICAL HISTORY OF Right 05/2020 CT guided biopsy on Lung. Dr. Owen SLING OPER STRES INCONTINENCE 08/2011 Family History FAMILY HISTORY Problem Relation Age of Onset Blood Disease Father Blood Clots Heart Father Kidney Disease Sister Diabetes Sister Hypertension Sister other (Blood Clots) Sister COPD Sister Emphysema Sister other (Blood Clots) Sister Hypertension Sister Hypertension Brother Diabetes Brother Heart Attack Brother Hypertension Brother Kidney Disease Brother Diabetes Brother Cancer Maternal Grandmother Lung other (Other) Paternal Grandmother with TB. Did not live with patient. Heart Daughter Hypertension Son Colon Cancer Other Nephew Patient Allergies ALLERGIES Allergen Reactions Bactrim [Sulfametho* Other: See Comments [place] sick, barely could breath. [place] deathly sick . GI upset Penicillins Anaphylaxis As a child passed out in md office after PCN injection. Zoloft [Sertraline * GI Upset GI upset, chest burning, muscle ache Ipratropium Other: See Comments Blurry vision, abdominal cramping, tremor, headache. Tudorza Pressair [A* Other: See Comments Heart palpitations, blurry vision, abdominal cramping, tremor, headache. Aclidinium Other: See Comments Cymbalta [Duloxetin* Intolerance panic Elavil [Amitriptyli* Intolerance GI upset, chest burning Fluticasone-Umeclid* Other: See Comments Gabapentin Intolerance Cough, sob, anxiety, increased drowsiness Incruse Ellipta [Um* Other: See Comments Heart palpitations, blurry vision, abdominal cramping, tremor, headache. Levofloxacin Other: See Comments pressure in head. Feel like she is going to throw up and pass out. Lyrica [Pregabalin] Other: See Comments Chest discomfort,burping,sob Methylprednisone Myalgia Sertraline GI Upset Sulfamethoxazole Other: See Comments Trimethoprim Other: See Comments Doxycycline Mental Status Change Makes her feel spacey . If given abx prefer to use this one out of all with the least amount of side effects. Current Medications Current Outpatient Medications on File Prior to Visit Medication Sig hydrOXYzine HCl (ATARAX) 25 mg tablet Take 1 tablet by mouth twice daily as needed for anxiety. PARoxetine (PAXIL) 10 mg tablet take 1 tablet by mouth once daily HYDROcodone-acetaminophen (NORCO) 5-325 mg per tablet Take 1 tablet by mouth every 6 hours as needed for pain for up to 30 days. Take one pill 4 times daily as needed for back pain Do not start before September 21, 2022. HYDROcodone-acetaminophen (NORCO) 5-325 mg per tablet Take 1 tablet by mouth every 6 hours as needed for pain for up to 30 days. Take one pill 4 times daily as needed for back pain Do not start before August 22, 2022. alendronate (FOSAMAX) 70 mg tablet Take 1 tablet by mouth one time a week. In AM with cup of water on empty stomach. Nothing else by mouth and stay upright for 30 min. HYDROcodone-acetaminophen (NORCO) 5-325 mg per tablet Take 1 tablet by mouth every 6 hours as needed for pain for up to 10 days. Take one pill 4 times daily as needed for back pain 1 of 2 Rx Do not start before August 10, 2022. estradiol (ESTRACE) 0.01 % (0.1 mg/gram) vaginal cream Use 1 g vaginally once daily. And apply fingertip amount to urethral caruncle every night x 14 nights then twice weekly. rosuvastatin (CRESTOR) 10 mg tablet take 1 tablet by mouth at bedtime COMBIVENT RESPIMAT 20-100 mcg/actuation inhaler metoprolol succinate ER (TOPROL XL) 25 mg 24 hr tablet Take 1 tablet by mouth once daily. loratadine (CLARITIN) 10 mg tablet Take 1 tablet by mouth once daily as needed. FOR ALLERGY SYMPTOMS ALBUTEROL SULFATE HFA INHALATION Inhale as instructed. famotidine (PEPCID) 20 mg tablet Take 1 tablet by mouth twice daily. polyethylene glycol 3350 (MIRALAX) 17 gram/dose powder Take 17 g by mouth once daily. As needed for constipation fluticasone (FLONASE) 50 mcg/actuation nasal spray place 1 spray into each nostril twice a day Nebulizer Accessories kit 4 kits per month. Dx J44.9 albuterol (PROVENTIL) 2.5 mg /3 mL (0.083 %) nebulizer solution Use 3 mL via nebulizer every 4 hours as needed for Wheezing/Shortness of Breath. Use over 5-15minutes. Cholecalciferol, Vitamin D3, 2,000 unit cap Take 1 capsule by mouth once daily. DULERA 200-5 mcg/actuation inhaler Inhale 2 Puffs as instructed twice daily. No current facility-administered medications on file prior to visit. Social History Social History Tobacco Use Smoking status: Every Day Packs/day: 1.00 Years: 33.00 Pack years: 33.00 Types: Cigarettes Start date: 04/10/1981 Smokeless tobacco: Never Tobacco comments: smoking 1 ppd. Vaping Use Vaping Use: Never used Substance Use Topics Alcohol use: No Drug use: No EXAM: BP 136/78 (BP Site: Left Arm, BP Position: Sitting, BP Cuff Size: Regular Adult) Pulse 80 Resp 20 Wt 47.6 kg (105 lb) LMP (LMP Unknown) BMI 19.20 kg/m General Appearance: Well appearing, alert, in no acute distress, well-hydrated, well nourished. and Thin. Lungs: Lungs clear to auscultation. No wheezing, rhonchi, rales. Slight scratches during exam. Heart: RRR without murmur, gallop, or rubs. No ectopy. Health Maintenance List ALPHA-1 ANTITRYPSIN DEFICIENCY SCREENING Never done SHINGRIX VACCINE(1 of 2) Never done PNEUMOCOCCAL: 65+(2 - PCV) due on 07/29/2014 LUNG CANCER SCREENING due on 11/25/2019 COVID-19 VACCINE(3 - Booster for Moderna series) due on 04/11/2021 DTAP,TDAP,TD(2 - Td or Tdap) due on 05/15/2021 ADVANCE DIRECTIVE DISCUSSION Never done MAMMOGRAM due on 07/20/2023 ANNUAL PCP TEAM CHRONIC DISEASE VISIT due on 08/18/2023 DIABETES SCREEN due on 06/30/2025 LIPID SCREEN due on 04/03/2027 COLORECTAL CANCER SCREENING due on 01/21/2032 BONE DENSITY Completed SPIROMETRY Completed INFLUENZA Completed HEPATITIS C SCREENING Completed HIV SCREENING Completed Data reviewed Epic ASSESSMENT/PLAN: 1. Anxiety with depression - ICD9: 300.4, ICD10: F41.8 (primary diagnosis) - Cont current regimen; try to stay on paxil 5 mg daily and see if the side effects lessen. Update office if symptoms do not improve 2. Osteoporosis, unspecified osteoporosis type, unspecified pathological fracture presence - ICD9: 733.00, ICD10: M81.0 - Reviewed the need for Calcium and Vitamin D supplements and weight bearing exercise as tolerated. Continue current medication regimen. 3. Dyslipidemia - ICD9: 272.4, ICD10: E78.5 - Continue current medication regimen. - Cont diet/exercise 4. Smoker - ICD9: 305.1, ICD10: F17.200 - Cessation encouraged. - Physiologic and physical aspects of tobacco addiction as well as strategies for quitting were discussed. - Counseling was given focusing on the harmful effects of this addiction especially given the patient's medical condition(s) which will be worsened because of the chemicals in tobacco. 5. Chronic obstructive pulmonary disease, unspecified COPD type (HCC) - ICD9: 496, ICD10: J44.9 - Cont f/u with Pulmonary - Continue current medication regimen. - Stop smoking 6. Decreased appetite - ICD9: 783.0, ICD10: R63.0 - Cont to monitor 7. Chronic low back pain without sciatica, unspecified back pain laterality - ICD9: 724.2, 338.29, ICD10: M54.50, G89.29 - Cont f/u with Pain Mgmt - Continue current medication regimen. 8. Palpitations - ICD9: 785.1, ICD10: R00.2 - Stable - Continue current medication regimen. 2 mo f/u ERIAK/Depression. I agree with the Chief Complaint, ROS, and Past Histories independently gathered by the clinical support dba and the remaining scribed note accurately describes my personal service to the patient. Medical Decision Making: Problems: Moderate: 2+ stable chronic illnesses Risk: Moderate: Drug management Medical Decision Making Level: 4 - Moderate Ankit Martinez MD The documentation for this note was completed by Ana Montgomery Ma acting as scribe for Ankit Martinez MD. October 19, 2022 2:49 PM. Ana Montgomery Ma documented in this encounter [facility] 10-16-2022 Miscellaneous Notes Spoke with patient to inform her of medication approval of NORCO to be picked up on 10/21/2022. Patient states she tries to request appointment before her medication runs out but theres never availability. Patient encouraged to call two weeks sooner, she states she will. Ana Jensen LPN She is due on 10/21, appointment schedule in October due to provider availability. Suggest she consider alternating appointments with [facility] to allow her to be seen before she is due for medication refills to avoid running out of medication Sherry Florez III, MD, SOO [facility] [place] [facility] Telephone Medication Refill Request Name/dose: Vicodin or Engelhard (Hydrocodone) 5-325 Amount dispensed monthly: 105 Date last filled: 09/21/2022 Date last seen in office: 08/20/2022 Provider: Sherry Florez MD Next scheduled visit: 11/05/2022 Pharmacy: [id number] [place] [address] - [address] [facility] [phone] Ana Jensen LPN documented in this encounter [facility] 09-29-2022 Miscellaneous Notes The following approved medication requests have been transmitted electronically. Requested Prescriptions Pending Prescriptions Disp Refills PARoxetine (PAXIL) 10 mg tablet [Pharmacy Med Name: PAROXETINE HCL 10 MG TABLET] 30 tablet 5 Sig: take 1 tablet by mouth once daily Chaitanya Dimas APRN.CNP documented in this encounter [facility] 08-20-2022 Note HNO ID: [id number] Author: Christine Miranda MA Service: ? Author Type: Hot Die Press Feeder Type: Progress Notes Filed: 08/20/2022 2:47 PM Note Text: Review of Systems Constitutional: Negative for activity change, appetite change, chills, fever and unexpected weight change. Genitourinary: Negative for difficulty urinating. Musculoskeletal: Positive for back pain and myalgias. Negative for arthralgias, gait problem, joint swelling, neck pain and neck stiffness. Neurological: Positive for weakness and numbness. Negative for headaches. Psychiatric/Behavioral: Positive for sleep disturbance. Negative for dysphoric mood and suicidal ideas. The patient is nervous/anxious. [facility] 08-20-2022 History of Presen t illness Narrative Review of Systems Constitutional: Negative for activity change, appetite change, chills, fever and unexpected weight change. Genitourinary: Negative for difficulty urinating. Musculoskeletal: Positive for back pain and myalgias. Negative for arthralgias, gait problem, joint swelling, neck pain and neck stiffness. Neurological: Positive for weakness and numbness. Negative for headaches. Psychiatric/Behavioral: Positive for sleep disturbance. Negative for dysphoric mood and suicidal ideas. The patient is nervous/anxious. Images from the original note were not included. [facility] Name: Jessica Gloria : 1955 Purpose: 2 month follow-up Today's Date: 08/20/2022 Last Visit: 06/11/2022 Chief complaint: Neck, Thoracic and Low back Pain Interval History: Jessica Gloria returns today for a follow-up encounter, reporting that since last encounter, the overall pain and functional disability arising from the chief complaint has not improved. She had a PET scan, saw an Oncologist, reportedly was told that she may not be able to tolerate a pulmonary biopsy. She continues to follow with Pulmonology for COPD. She is waiting to hear back about next steps. She is having less cramps in the feet on her current pain regimen. Pain primarily in the left neck/shoulder border today. Pain Description: Timing: constant Character: Aching and Dull Primary Location: Neck, thoracic and low back Radiation: none The patient denies difficulty with bowel or bladder control. Regarding medications: The following medication(s) were started or modified: none The following medication(s) were discontinued: none The following medication(s) were continued: Engelhard TID-QID #40 (08/10/2022) - bridge, normally #105/mo #remainin Last taken: 1030 am Tizanidine PRN Overall, the medication(s) have helped improve pain and ADL's. They are well-tolerated. The following procedures were performed: DATE PROCEDURE IMPROVEMENT none Physical Therapy or Chiropractics was not prescribed. The following new imaging or diagnostic tests were obtained, with relevant findings reported below: DXA Notable Events During Course of Treatment: 04/2022 - Reports she was back in the hospital for SOB and COPD. She was discharged on 05/28/22. She was on steroids to help. Current Status: INTAKE PAIN ASSESSMENT 06/11/2022 07/27/2022 Are you having pain associated with your visit today? Yes, Provider notified Yes, Provider notified Pain Scales Verbal (Numeric Rating or Visual Analog Scale) Verbal (Numeric Rating or Visual Analog Scale) Pain Level 5 - Pain Location Back-Middle Abdomen-Mid Lower Description Tingling;Numbness;Sharp;Radiati ng;Aching;Throbbing Aching;Pressure Duration Amount of Time - 1 Duration Units Years Years Frequency Continuous Intermittent Intervention/Comfort measure Medication;Reposition;Relaxatio n;Positioning - Comments - - Pain Assessment - - Current Anti-Coagulant Use: No Risk Assessment: ERIKA-7: No flowsheet data found.(0-4) minimal anxiety, (5-9) mild anxiety, (10-14) moderate anxiety, (15-21) severe anxiety PHQ-9: No flowsheet data found.(0-4) minimal depression, (5-9) mild depression, (10-14) moderate depression, (15-19) moderately severe depression, (20-27) severe depression Compliance: PDMP website checked and validated. All prescriptions have been APPROPRIATELY filled. No suspicious activity was identified. 08/20/2022 by Sherry Florez MD Last Drug screen: 06/30/2022 appropriate (positive hydrocodone and breakdown products) 04/09/22 appropriate. Compliance: Safety Checklist: Are you taking proper precautions to safe guard your medication? Yes Taking the medications as prescribed? Yes Getting pain medications from another physician? No Obtaining pain medication from another source? No Sharing medications with friends/family? No Quality of life improved as a result of taking these medications? Yes Any side effect with this medication? No Justification for Continued Opioid Care: Adequate analgesia? Yes Aberrant drug seeking behavior? No Adverse reactions? No Medications improve quality of life? Yes Allergies: ALLERGIES Allergen Reactions Bactrim [Sulfametho* Other: See Comments [place] sick, barely could breath. [place] deathly sick . GI upset Penicillins Anaphylaxis As a child passed out in md office after PCN injection. Zoloft [Sertraline * GI Upset GI upset, chest burning, muscle ache Ipratropium Other: See Comments Blurry vision, abdominal cramping, tremor, headache. Tudorza Pressair [A* Other: See Comments Heart palpitations, blurry vision, abdominal cramping, tremor, headache. Aclidinium Other: See Comments Cymbalta [Duloxetin* Intolerance panic Elavil [Amitriptyli* Intolerance GI upset, chest burning Fluticasone-Umeclid* Other: See Comments Gabapentin Intolerance Cough, sob, anxiety, increased drowsiness Incruse Ellipta [Um* Other: See Comments Heart palpitations, blurry vision, abdominal cramping, tremor, headache. Levofloxacin Other: See Comments pressure in head. Feel like she is going to throw up and pass out. Lyrica [Pregabalin] Other: See Comments Chest discomfort,burping,sob Methylprednisone Myalgia Sertraline GI Upset Sulfamethoxazole Other: See Comments Trimethoprim Other: See Comments Doxycycline Mental Status Change Makes her feel spacey . If given abx prefer to use this one out of all with the least amount of side effects. Data Reviewed: Reviewed personally on today's date. Relevant Imaging: MRI Spine Report MRI THORACIC SPINE WO IVCON Exam End: 12/30/2021 3:01 PM (Final result) Narrative: * * *Final Report* * * DATE OF EXAM: Dec 30 2021 3:01PM DEREK Bhatia5 - MRI THORACIC SPINE WO IVCON / PROCEDURE REASON: Radiculopathy, thoracic region * * * * Physician Interpretation * * * * EXAMINATION: MRI CERVICAL SPINE WO IVCON, MRI THORACIC SPINE WO IVCON CLINICAL HISTORY: Cervical and thoracic radiculopathy. TECHNIQUE: Routine cervical and thoracic spine MR protocol without gadolinium. MQ: [id number] COMPARISON: None. RESULT: CERVICAL: Counting reference: Craniocervical junction. Anatomic Variants: None. Localizer images: Patchy infiltrates are noted in the upper lobes there appears to be thickening or small amount of fluid in the right major fissure on the dining service worker images but evaluation of the lungs is limited by MRI. Alignment: Accentuation of the normal cervical lordosis likely secondary to accentuated thoracic kyphosis. Craniocervical junction: Alignment at the craniocervical junction is within normal limits. Cord: The cervical spinal cord is within normal limits of signal intensity and morphology. Bone marrow signal/fracture: No evidence of pathologic marrow infiltration. No evidence of prior fracture. Cervical soft tissues: The paraspinal soft tissues are within normal limits. C2-C3: Canal and foramina are patent. C3-C4: Mild asymmetric facet degenerative changes. Canal and foramina remain patent. C4-C5: Canal and foramina are patent. C5-C6: Mild asymmetric facet degenerative changes. Canal and foramina remain patent. C6-C7: Canal and foramina are patent. C7-T1: Canal and foramina are patent. THORACIC: Counting reference: Lumbosacral junction. For the purposes of this report, L4-5 is considered the level of the iliac crest and assume there are 5 lumbar-type vertebrae. Anatomic variant: None. Audio Visual Manager (topogram) images: No additional findings. Alignment: Accentuation of the normal thoracic kyphosis. Mild to moderate disc space narrowing is noted in the midthoracic spine. Cord: The thoracic spinal cord and conus are within normal limits of signal intensity and morphology. Bone marrow signal/fracture: No evidence of pathologic marrow infiltration. No evidence of prior fracture. Thoracic soft tissues: The paraspinal soft tissues are within normal limits. Canal and foramina: Thoracic canal and foramina are patent. Impression: IMPRESSION: Mild cervical and thoracic degenerative disc disease without significant canal or foraminal stenosis. Cervical Anatomic Variant: None. Assume 7 cervical vertebrae with counting from the craniocervical junction. Anatomic Thoracic/Lumbar Variant: None. L4-5 is considered the level of the iliac crest and assume there are 5 lumbar-type vertebrae. Hand Umbrella Tipper: PSCB Transcribe Date/Time: Dec 30 2021 3:18P Dictated by : RACHEAL MCKEON MD This examination was interpreted and the report reviewed and electronically signed by: RACHEAL MCKEON MD on Dec 30 2021 3:28PM EST DXA-Axial Skeleton 07/2022 Osteoporosis in the lumbar spine and left femoral neck. Pain Procedures: DATE PROCEDURE IMPROVEMENT 11/07/2021 RFA Right C3-4,4-5,5-6 80% x 3 months 08/06/2021 RFA Left T5-6,6-7,7-8 50% x 1 week 07/23/2021 RFA Right T5-6,6-7,7-8 50% x 1 week Current Medications, Past Medical History, Past Surgical History, Family History, Social History and Review of Systems: On today's date noted above, I have confirmed and edited as necessary, the PFSH and ROS obtained by others. Physical Exam: 08/20/22 1405 Pulse: 77 Resp: 14 SpO2: 99% Constitutional: underweight HEENT: Normal Cephalic, Atraumatic, Non-icteric sclera Eyes: Conjunctiva clear. No discharge from eyes Cardiovascular: Appears well perfused Lymphatic: No visible regional lymphadenopathy Skin: No visible rashes or ecchymosis Psychiatric: Full affect, Alert, Pleasant MSK: Extremities: no deficits or edema Gait: Normal. Ambulates unassisted Palpation: concordant pain with triggering left upper trapezius Neuro: Motor Strength: Upper and lower extremity 5/5 bilaterally Sensory: intact to light touch Diagnoses: (M47.812) Cervical spondylosis without myelopathy (primary encounter diagnosis) (M47.814) Thoracic spondylosis without myelopathy (M47.817) Lumbosacral spondylosis without myelopathy (Z79.891) senior living current use of opiate analgesic (M79.18) Myofascial pain Impression & Plan: 66 year old female, who presents with complaint(s) of chronic neck, mid and low back pain, facet-mediated, with myofascial overlay, here for medication refills. She is stable on her current medications. Jessica Gloria would benefit from the following to decrease pain, improve function and/or work participation, and improve quality of life: Medications: Engelhard 5/325, #105/mo, refill - encouraged to go to [facility] as much as possible Zanaflex 4mg qHS PRN - continue (encouraged to take more regularly) UDS, NAOIC/ORT: Reviewed and consistent, NAOIC/ORT up to date. She does admit to taking a few extra pain pills with her hospitalization. We discussed to take her medications no more then prescribed. She has no previous discrepancies, she voiced understanding. Functional Sabianism: none Additional Studies: none Referrals: none Additional: Patient reports they are happy with current treatment care plan. At this time will continued the patient's opioids today for 60 days. The patient continues to see benefit and improvement in their quality of life with adequate analgesia and ADLS's maintained. No adverse effects, no aberrant behaviors noted; OARRS reviewed and consistent. Risks of long-term medication use was reviewed and Patient advised the above medications may cause impairment of judgement while driving or operating machinery. Patient instructed on safe storage of medications We will re-evaluate opiate regimen in 60 days, office visit, to determine efficacy of treatment to ensure that we are using the lowest dose for maximum benefit. Today we discussed the use of opioids; and the risks of adverse events of prolonged and/or combined use. I offered RX for narcan, patient agrees to fill Rx and verbalized understanding of the above. Depending on response to the above plan, consider: TBD Follow-up: 2 months Attribution: In addition to reviewing the information noted above, some elements copied from my most recent clinical note(s), including the physical exam (completed in entirety today), and the impression and plan sections, have been updated where appropriate. All reflect current medical decision making from today's date. Sherry Florez MD, MBA [facility] documented in this encounter [facility] 08-18-2022 Note HNO ID: [id number] Author: Ankit Martinez MD Service: ? Author Type: Physician Type: Progress Notes Filed: 08/18/2022 3:45 PM Note Text: Chief Complaint Patient presents with: Follow Up HPI Jessica Gloria is a 66 year old female who presents here today for test results. Pt here to follow up on Bone Density results. Tobacco - Still smoking, knows she needs to quit due to her pulmonary issues. Osteoporosis - Recent Bone Density showing osteoporosis. This was ordered by [employer] and based off results they recommended pt contact our office to discuss treatment. COPD - Recently seen in with COPD exacerbation after getting sick. Pt had Covid testing done, which was negative. Was given Zpak and Prednisone 20 mg for 5 days, finished this yesterday. She does have some improvement, but feels exhausted and doesn't have energy. Does have some sob and voice shaking with talking. ERIKA - Admits to increased anxiety and having panic attacks. Admits she's not started the Paxil 10 mg once daily, due to effects from trying Cymbalta previously and causing her increased anxiety. Will use Hydroxyzine 25 mg at bedtime prn, doesn't feel it helps all the time. Pt following with Dr. Green for urinary complaints and frequency. Follows with Pain Mgmt for her chronic back pain. Past medical history, appointments, medications, allergies reviewed. Previous Medical History PAST MEDICAL HISTORY Diagnosis Date Acid reflux Back pain COPD (chronic obstructive pulmonary disease) ([facility]) 2016 FEV1 0.95L, 40% pred. COPD (chronic obstructive pulmonary disease) ([facility]) Kidney stones Osteopenia frax score 4% hip fracture risk 2017 start fosamax repeat imaging 1-2 years Unspecified asthma(493.90) Previous Surgical History PAST SURGICAL HISTORY Procedure Laterality Date COLONOSCOPY 01/20/2022 COLONOSCOPY FLX DX W/COLLJ SPEC WHEN PFRMD 05/27/2011 Colonoscopy CYSTO CALIBRATION DILAT URTL STRIX/STENOSIS N/A 11/22/2018 EGD W/O BRSH SPEC VARICIES INJ 01/20/2022 LAPAROSCOPY SURG CHOLECYSTECTOMY 2005 Cholecystectomy, lap LIG/TRNSXJ FLP TUBE ABDL/VAG APPR UNI/BI Tubal ligation LITHOTRIPSY XTRCORP SHOCK WAVE Lithotripsy LUNG BIOPSY 2021 PAST SURGICAL HISTORY OF 1982 lung biopsy PAST SURGICAL HISTORY OF Right 05/2020 CT guided biopsy on Lung. Dr. Brayden ALONSO OPER STRES INCONTINENCE 08/2011 Family History FAMILY HISTORY Problem Relation Age of Onset Blood Disease Father Blood Clots Heart Father Kidney Disease Sister Diabetes Sister Hypertension Sister other (Blood Clots) Sister COPD Sister Emphysema Sister other (Blood Clots) Sister Hypertension Sister Hypertension Brother Diabetes Brother Heart Attack Brother Hypertension Brother Kidney Disease Brother Diabetes Brother Cancer Maternal Grandmother Lung other (Other) Paternal Grandmother with TB. Did not live with patient. Heart Daughter Hypertension Son Colon Cancer Other Nephew Patient Allergies ALLERGIES Allergen Reactions Bactrim [Sulfametho* Other: See Comments [place] sick, barely could breath. [place] deathly sick . GI upset Penicillins Anaphylaxis As a child passed out in md office after PCN injection. Zoloft [Sertraline * GI Upset GI upset, chest burning, muscle ache Ipratropium Other: See Comments Blurry vision, abdominal cramping, tremor, headache. Tudorza Pressair [A* Other: See Comments Heart palpitations, blurry vision, abdominal cramping, tremor, headache. Aclidinium Other: See Comments Cymbalta [Duloxetin* Intolerance panic Elavil [Amitriptyli* Intolerance GI upset, chest burning Fluticasone-Umeclid* Other: See Comments Gabapentin Intolerance Cough, sob, anxiety, increased drowsiness Incruse Ellipta [Um* Other: See Comments Heart palpitations, blurry vision, abdominal cramping, tremor, headache. Levofloxacin Other: See Comments pressure in head. Feel like she is going to throw up and pass out. Lyrica [Pregabalin] Other: See Comments Chest discomfort,burping,sob Methylprednisone Myalgia Sertraline GI Upset Sulfamethoxazole Other: See Comments Trimethoprim Other: See Comments Doxycycline Mental Status Change Makes her feel spacey . If given abx prefer to use this one out of all with the least amount of side effects. Current Medications Current Outpatient Medications on File Prior to Visit Medication Sig HYDROcodone-acetaminophen (NORCO) 5-325 mg per tablet Take 1 tablet by mouth every 6 hours as needed for pain for up to 10 days. Take one pill 4 times daily as needed for back pain 1 of 2 Rx Do not start before August 10, 2022. estradiol (ESTRACE) 0.01 % (0.1 mg/gram) vaginal cream Use 1 g vaginally once daily. And apply fingertip amount to urethral caruncle every night x 14 nights then twice weekly. rosuvastatin (CRESTOR) 10 mg tablet take 1 tablet by mouth at bedtime HYDROcodone-acetaminophen (NORCO) 5-325 mg per tablet Take (more content not included)... [facility] 08-18-2022 History of Presen t illness Narrative Chief Complaint Patient presents with: Follow Up HPI Jessica Gloria is a 66 year old female who presents here today for test results. Pt here to follow up on Bone Density results. Tobacco - Still smoking, knows she needs to quit due to her pulmonary issues. Osteoporosis - Recent Bone Density showing osteoporosis. This was ordered by [employer] and based off results they recommended pt contact our office to discuss treatment. COPD - Recently seen in with COPD exacerbation after getting sick. Pt had Covid testing done, which was negative. Was given Zpak and Prednisone 20 mg for 5 days, finished this yesterday. She does have some improvement, but feels exhausted and doesn't have energy. Does have some sob and voice shaking with talking. ERIKA - Admits to increased anxiety and having panic attacks. Admits she's not started the Paxil 10 mg once daily, due to effects from trying Cymbalta previously and causing her increased anxiety. Will use Hydroxyzine 25 mg at bedtime prn, doesn't feel it helps all the time. Pt following with Dr. Green for urinary complaints and frequency. Follows with Pain Mgmt for her chronic back pain. Past medical history, appointments, medications, allergies reviewed. Previous Medical History PAST MEDICAL HISTORY Diagnosis Date Acid reflux Back pain COPD (chronic obstructive pulmonary disease) ([facility]) 2016 FEV1 0.95L, 40% pred. COPD (chronic obstructive pulmonary disease) ([facility]) Kidney stones Osteopenia frax score 4% hip fracture risk 2016 start fosamax repeat imaging 1-2 years Unspecified asthma(493.90) Previous Surgical History PAST SURGICAL HISTORY Procedure Laterality Date COLONOSCOPY 01/20/2022 COLONOSCOPY FLX DX W/COLLJ SPEC WHEN PFRMD 05/27/2011 Colonoscopy CYSTO CALIBRATION DILAT URTL STRIX/STENOSIS N/A 11/22/2018 EGD W/O BRSH SPEC VARICIES INJ 01/20/2022 LAPAROSCOPY SURG CHOLECYSTECTOMY 2005 Cholecystectomy, lap LIG/TRNSXJ FLP TUBE ABDL/VAG APPR UNI/BI Tubal ligation LITHOTRIPSY XTRCORP SHOCK WAVE Lithotripsy LUNG BIOPSY 2021 PAST SURGICAL HISTORY OF 1982 lung biopsy PAST SURGICAL HISTORY OF Right 05/2020 CT guided biopsy on Lung. Dr. Brayden ALONSO OPER STRES INCONTINENCE 08/2011 Family History FAMILY HISTORY Problem Relation Age of Onset Blood Disease Father Blood Clots Heart Father Kidney Disease Sister Diabetes Sister Hypertension Sister other (Blood Clots) Sister COPD Sister Emphysema Sister other (Blood Clots) Sister Hypertension Sister Hypertension Brother Diabetes Brother Heart Attack Brother Hypertension Brother Kidney Disease Brother Diabetes Brother Cancer Maternal Grandmother Lung other (Other) Paternal Grandmother with TB. Did not live with patient. Heart Daughter Hypertension Son Colon Cancer Other Nephew Patient Allergies ALLERGIES Allergen Reactions Bactrim [Sulfametho* Other: See Comments [place] sick, barely could breath. [place] deathly sick . GI upset Penicillins Anaphylaxis As a child passed out in md office after PCN injection. Zoloft [Sertraline * GI Upset GI upset, chest burning, muscle ache Ipratropium Other: See Comments Blurry vision, abdominal cramping, tremor, headache. Tudorza Pressair [A* Other: See Comments Heart palpitations, blurry vision, abdominal cramping, tremor, headache. Aclidinium Other: See Comments Cymbalta [Duloxetin* Intolerance panic Elavil [Amitriptyli* Intolerance GI upset, chest burning Fluticasone-Umeclid* Other: See Comments Gabapentin Intolerance Cough, sob, anxiety, increased drowsiness Incruse Ellipta [Um* Other: See Comments Heart palpitations, blurry vision, abdominal cramping, tremor, headache. Levofloxacin Other: See Comments pressure in head. Feel like she is going to throw up and pass out. Lyrica [Pregabalin] Other: See Comments Chest discomfort,burping,sob Methylprednisone Myalgia Sertraline GI Upset Sulfamethoxazole Other: See Comments Trimethoprim Other: See Comments Doxycycline Mental Status Change Makes her feel spacey . If given abx prefer to use this one out of all with the least amount of side effects. Current Medications Current Outpatient Medications on File Prior to Visit Medication Sig HYDROcodone-acetaminophen (NORCO) 5-325 mg per tablet Take 1 tablet by mouth every 6 hours as needed for pain for up to 10 days. Take one pill 4 times daily as needed for back pain 1 of 2 Rx Do not start before August 10, 2022. estradiol (ESTRACE) 0.01 % (0.1 mg/gram) vaginal cream Use 1 g vaginally once daily. And apply fingertip amount to urethral caruncle every night x 14 nights then twice weekly. rosuvastatin (CRESTOR) 10 mg tablet take 1 tablet by mouth at bedtime HYDROcodone-acetaminophen (NORCO) 5-325 mg per tablet Take 1 tablet by mouth every 6 hours as needed for pain for up to 30 days. Take one pill 4 times daily as needed for back pain 2 of 2 Rx Do not start before July 11, 2022. BREZTRI AEROSPHERE 160-9-4.8 mcg/actuation HFA aerosol inhaler (Patient not taking: Reported on 07/27/2022) PARoxetine (PAXIL) 10 mg tablet Take 1 tablet by mouth once daily. tiZANidine (ZANAFLEX) 4 mg tablet Take 1 tablet by mouth at bedtime as needed (muscle spasms). COMBIVENT RESPIMAT 20-100 mcg/actuation inhaler metoprolol succinate ER (TOPROL XL) 25 mg 24 hr tablet Take 1 tablet by mouth once daily. hydrOXYzine HCl (ATARAX) 25 mg tablet Take 1 tablet by mouth twice daily as needed for anxiety. loratadine (CLARITIN) 10 mg tablet Take 1 tablet by mouth once daily as needed. FOR ALLERGY SYMPTOMS SPIRIVA WITH HANDIHALER 18 mcg inhalation capsule (Patient not taking: Reported on 07/27/2022) ALBUTEROL SULFATE HFA INHALATION Inhale as instructed. famotidine (PEPCID) 20 mg tablet Take 1 tablet by mouth twice daily. polyethylene glycol 3350 (MIRALAX) 17 gram/dose powder Take 17 g by mouth once daily. As needed for constipation fluticasone (FLONASE) 50 mcg/actuation nasal spray place 1 spray into each nostril twice a day Nebulizer Accessories kit 4 kits per month. Dx J44.9 albuterol (PROVENTIL) 2.5 mg /3 mL (0.083 %) nebulizer solution Use 3 mL via nebulizer every 4 hours as needed for Wheezing/Shortness of Breath. Use over 5-15minutes. Cholecalciferol, Vitamin D3, 2,000 unit cap Take 1 capsule by mouth once daily. DULERA 200-5 mcg/actuation inhaler Inhale 2 Puffs as instructed twice daily. Current Facility-Administered Medications on File Prior to Visit Medication perflutren lipid microspheres 1.3 mL in NaCl (PF) 0.9% 10 mL injection (DEFINITY) sodium chloride 0.9 % (flush) 10 mL (BD POSIFLUSH) Social History Social History Tobacco Use Smoking status: Every Day Packs/day: 1.00 Years: 33.00 Pack years: 33.00 Types: Cigarettes Start date: 04/10/1981 Smokeless tobacco: Never Tobacco comments: smoking 1 ppd. Vaping Use Vaping Use: Never used Substance Use Topics Alcohol use: No Drug use: No EXAM: BP 122/78 (BP Site: Left Arm, BP Position: Sitting, BP Cuff Size: Regular Adult) Pulse 70 Resp 20 Wt 48 kg (105 lb 12.8 oz) LMP (LMP Unknown) SpO2 97% BMI 19.35 kg/m General Appearance: Well appearing, alert, in no acute distress, well-hydrated, well nourished.. Lungs: Lungs clear to auscultation. Slight wheezing noted, rhonchi, rales.. Heart: RRR without murmur, gallop, or rubs. No ectopy. Health Maintenance List ALPHA-1 ANTITRYPSIN DEFICIENCY SCREENING Never done SHINGRIX VACCINE(1 of 2) Never done PNEUMOCOCCAL(2 - PCV) due on 07/29/2014 LUNG CANCER SCREENING due on 11/25/2019 COVID-19 VACCINE(3 - Booster for Moderna series) due on 04/11/2021 DTAP,TDAP,TD(2 - Td or Tdap) due on 05/15/2021 ANNUAL PCP TEAM CHRONIC DISEASE VISIT due on 06/05/2023 MAMMOGRAM due on 07/20/2023 DIABETES SCREEN due on 06/30/2025 LIPID SCREEN due on 04/03/2027 PAP TESTING due on 07/27/2027 HPV TESTING due on 07/27/2027 COLORECTAL CANCER SCREENING due on 01/21/2032 SPIROMETRY Completed INFLUENZA Completed HEPATITIS C SCREENING Completed HIV SCREENING Completed Data reviewed Bone density test ASSESSMENT/PLAN: 1. Osteoporosis, unspecified osteoporosis type, unspecified pathological fracture presence - ICD9: 733.00, ICD10: M81.0 (primary diagnosis) - Start Fosamax once weekly. - Reviewed the need for Calcium and Vitamin D supplements and weight bearing exercise as tolerated 2. COPD with exacerbation (HCC) - ICD9: 491.21, ICD10: J44.1 - Stable today. - Follow up with Pulmonary 3. Anxiety - ICD9: 300.00, ICD10: F41.9 - Continue current medication regimen, but increase to 50 mg at bedtime - Start Paxil, okay with starting with 0.5 tablet. 4. Smoker - ICD9: 305.1, ICD10: F17.200 - Cessation encouraged. - Physiologic and physical aspects of tobacco addiction as well as strategies for quitting were discussed. - Counseling was given focusing on the harmful effects of this addiction especially given the patient's medical condition(s) which will be worsened because of the chemicals in tobacco. Follow up in 2 months. I agree with the Chief Complaint, ROS, and Past Histories independently gathered by the clinical support dba and the remaining scribed note accurately describes my personal service to the patient. Medical Decision Making: Problems: Moderate: New problem with uncertain prognosis and 2+ stable chronic illnesses Risk: Moderate: Drug management Medical Decision Making Level: 4 - Moderate Ankit Martinez MD The documentation for this note was completed by Ana Montgomery Ma acting as scribe for Ankit Martinez MD. August 18, 2022 3:06 PM. Ana Montgomery Ma documented in this encounter [facility] 08-13-2022 Miscellaneous Notes Left message on secure voicemail, of test results. Laura Jin MA Please notify that covid testing negative. Continue with plan of care as discussed during visit. documented in this encounter [facility] 08-12-2022 Note HNO ID: [id number] Author: Jake Johnson MD Service: ? Author Type: Physician Type: Progress Notes Filed: 08/12/2022 4:31 PM Note Text: Patient presents with: Cough: Chest congestion, sob x 5 days HPI: Feeling sick for 5 days. Positive symptoms: Cough, Shortness of breath, chest congestion, temp up to 100, Rhinorrhea, Negative symptoms: Sore throat, Vomiting, Diarrhea, OTC: nebulizer, inhalers, flonase Hospital admission for COPD exacerbation 1 1/2 months ago. PAST MEDICAL HISTORY Diagnosis Date Acid reflux Back pain COPD (chronic obstructive pulmonary disease) ([facility]) 2017 FEV1 0.95L, 40% pred. COPD (chronic obstructive pulmonary disease) ([facility]) Kidney stones Osteopenia frax score 4% hip fracture risk 2017 start fosamax repeat imaging 1-2 years Unspecified asthma(493.90) MEDICATIONS: Current Outpatient Medications Medication Sig HYDROcodone-acetaminophen (NORCO) 5-325 mg per tablet Take 1 tablet by mouth every 6 hours as needed for pain for up to 10 days. Take one pill 4 times daily as needed for back pain 1 of 2 Rx Do not start before August 10, 2022. estradiol (ESTRACE) 0.01 % (0.1 mg/gram) vaginal cream Use 1 g vaginally once daily. And apply fingertip amount to urethral caruncle every night x 14 nights then twice weekly. rosuvastatin (CRESTOR) 10 mg tablet take 1 tablet by mouth at bedtime HYDROcodone-acetaminophen (NORCO) 5-325 mg per tablet Take 1 tablet by mouth every 6 hours as needed for pain for up to 30 days. Take one pill 4 times daily as needed for back pain 2 of 2 Rx Do not start before July 11, 2022. PARoxetine (PAXIL) 10 mg tablet Take 1 tablet by mouth once daily. tiZANidine (ZANAFLEX) 4 mg tablet Take 1 tablet by mouth at bedtime as needed (muscle spasms). COMBIVENT RESPIMAT 20-100 mcg/actuation inhaler metoprolol succinate ER (TOPROL XL) 25 mg 24 hr tablet Take 1 tablet by mouth once daily. hydrOXYzine HCl (ATARAX) 25 mg tablet Take 1 tablet by mouth twice daily as needed for anxiety. loratadine (CLARITIN) 10 mg tablet Take 1 tablet by mouth once daily as needed. FOR ALLERGY SYMPTOMS ALBUTEROL SULFATE HFA INHALATION Inhale as instructed. famotidine (PEPCID) 20 mg tablet Take 1 tablet by mouth twice daily. polyethylene glycol 3350 (MIRALAX) 17 gram/dose powder Take 17 g by mouth once daily. As needed for constipation fluticasone (FLONASE) 50 mcg/actuation nasal spray place 1 spray into each nostril twice a day Nebulizer Accessories kit 4 kits per month. Dx J44.9 albuterol (PROVENTIL) 2.5 mg /3 mL (0.083 %) nebulizer solution Use 3 mL via nebulizer every 4 hours as needed for Wheezing/Shortness of Breath. Use over 5-15minutes. Cholecalciferol, Vitamin D3, 2,000 unit cap Take 1 capsule by mouth once daily. DULERA 200-5 mcg/actuation inhaler Inhale 2 Puffs as instructed twice daily. BREZTRI AEROSPHERE 160-9-4.8 mcg/actuation HFA aerosol inhaler (Patient not taking: Reported on 07/27/2022) SPIRIVA WITH HANDIHALER 18 mcg inhalation capsule (Patient not taking: No sig reported) No current facility-administered medications for this visit. ALLERGIES: ALLERGIES Allergen Reactions Bactrim [Sulfametho* Other: See Comments [place] sick, barely could breath. [place] deathly sick . GI upset Penicillins Anaphylaxis As a child passed out in md office after PCN injection. Zoloft [Sertraline * GI Upset GI upset, chest burning, muscle ache Ipratropium Other: See Comments Blurry vision, abdominal cramping, tremor, headache. Tudorza Pressair [A* Other: See Comments Heart palpitations, blurry vision, abdominal cramping, tremor, headache. Aclidinium Other: See Comments Cymbalta [Duloxetin* Intolerance panic Elavil [Amitriptyli* Intolerance GI upset, chest burning Fluticasone-Umeclid* Other: See Comments Gabapentin Intolerance Cough, sob, anxiety, increased drowsiness Incruse Ellipta [Um* Other: See Comments Heart palpitations, blurry vision, abdominal cramping, tremor, headache. Levofloxacin Other: See Comments pressure in head. Feel like she is going to throw up and pass out. Lyrica [Pregabalin] Other: See Comments Chest discomfort,burping,sob Methylprednisone Myalgia Sertraline GI Upset Sulfamethoxazole Other: See Comments Trimethoprim Other: See Comments Doxycycline Mental Status Change Makes her feel spacey . If given abx prefer to use this one out of all with the least amount of side effects. VITALS: BP 118/64 Pulse 83 Temp 37.2 ?C (99 ?F) Resp 23 Wt 47.6 kg (105 lb) LMP (LMP Unknown) SpO2 96% BMI 19.20 kg/m? PHYSICAL EXAM: GEN: mildly ill appearing, cachectic HEENT: PERRL, EOMI, conjunctiva clear Ears: canals clear. TMs without erythema, bulge, or effusion Sinuses: non-tender frontal sinus, non-tender maxillary sinuses Throat: moist mucous membranes, no erythema, no exudate Neck: supple, no thyromegaly, no lymphadenopathy HEART: regular rate and rhythm, no murmurs (more content not included)... [facility] 08-12-2022 History of Presen t illness Narrative Patient presents with: Cough: Chest congestion, sob x 5 days HPI: Feeling sick for 5 days. Positive symptoms: Cough, Shortness of breath, chest congestion, temp up to 100, Rhinorrhea, Negative symptoms: Sore throat, Vomiting, Diarrhea, OTC: nebulizer, inhalers, flonase Hospital admission for COPD exacerbation 1 1/2 months ago. PAST MEDICAL HISTORY Diagnosis Date Acid reflux Back pain COPD (chronic obstructive pulmonary disease) ([facility]) 2016 FEV1 0.95L, 40% pred. COPD (chronic obstructive pulmonary disease) ([facility]) Kidney stones Osteopenia frax score 4% hip fracture risk 2017 start fosamax repeat imaging 1-2 years Unspecified asthma(493.90) MEDICATIONS: Current Outpatient Medications Medication Sig HYDROcodone-acetaminophen (NORCO) 5-325 mg per tablet Take 1 tablet by mouth every 6 hours as needed for pain for up to 10 days. Take one pill 4 times daily as needed for back pain 1 of 2 Rx Do not start before August 10, 2022. estradiol (ESTRACE) 0.01 % (0.1 mg/gram) vaginal cream Use 1 g vaginally once daily. And apply fingertip amount to urethral caruncle every night x 14 nights then twice weekly. rosuvastatin (CRESTOR) 10 mg tablet take 1 tablet by mouth at bedtime HYDROcodone-acetaminophen (NORCO) 5-325 mg per tablet Take 1 tablet by mouth every 6 hours as needed for pain for up to 30 days. Take one pill 4 times daily as needed for back pain 2 of 2 Rx Do not start before July 11, 2022. PARoxetine (PAXIL) 10 mg tablet Take 1 tablet by mouth once daily. tiZANidine (ZANAFLEX) 4 mg tablet Take 1 tablet by mouth at bedtime as needed (muscle spasms). COMBIVENT RESPIMAT 20-100 mcg/actuation inhaler metoprolol succinate ER (TOPROL XL) 25 mg 24 hr tablet Take 1 tablet by mouth once daily. hydrOXYzine HCl (ATARAX) 25 mg tablet Take 1 tablet by mouth twice daily as needed for anxiety. loratadine (CLARITIN) 10 mg tablet Take 1 tablet by mouth once daily as needed. FOR ALLERGY SYMPTOMS ALBUTEROL SULFATE HFA INHALATION Inhale as instructed. famotidine (PEPCID) 20 mg tablet Take 1 tablet by mouth twice daily. polyethylene glycol 3350 (MIRALAX) 17 gram/dose powder Take 17 g by mouth once daily. As needed for constipation fluticasone (FLONASE) 50 mcg/actuation nasal spray place 1 spray into each nostril twice a day Nebulizer Accessories kit 4 kits per month. Dx J44.9 albuterol (PROVENTIL) 2.5 mg /3 mL (0.083 %) nebulizer solution Use 3 mL via nebulizer every 4 hours as needed for Wheezing/Shortness of Breath. Use over 5-15minutes. Cholecalciferol, Vitamin D3, 2,000 unit cap Take 1 capsule by mouth once daily. DULERA 200-5 mcg/actuation inhaler Inhale 2 Puffs as instructed twice daily. BREZTRI AEROSPHERE 160-9-4.8 mcg/actuation HFA aerosol inhaler (Patient not taking: Reported on 07/27/2022) SPIRIVA WITH HANDIHALER 18 mcg inhalation capsule (Patient not taking: No sig reported) No current facility-administered medications for this visit. ALLERGIES: ALLERGIES Allergen Reactions Bactrim [Sulfametho* Other: See Comments [place] sick, barely could breath. [place] deathly sick . GI upset Penicillins Anaphylaxis As a child passed out in md office after PCN injection. Zoloft [Sertraline * GI Upset GI upset, chest burning, muscle ache Ipratropium Other: See Comments Blurry vision, abdominal cramping, tremor, headache. Tudorza Pressair [A* Other: See Comments Heart palpitations, blurry vision, abdominal cramping, tremor, headache. Aclidinium Other: See Comments Cymbalta [Duloxetin* Intolerance panic Elavil [Amitriptyli* Intolerance GI upset, chest burning Fluticasone-Umeclid* Other: See Comments Gabapentin Intolerance Cough, sob, anxiety, increased drowsiness Incruse Ellipta [Um* Other: See Comments Heart palpitations, blurry vision, abdominal cramping, tremor, headache. Levofloxacin Other: See Comments pressure in head. Feel like she is going to throw up and pass out. Lyrica [Pregabalin] Other: See Comments Chest discomfort,burping,sob Methylprednisone Myalgia Sertraline GI Upset Sulfamethoxazole Other: See Comments Trimethoprim Other: See Comments Doxycycline Mental Status Change Makes her feel spacey . If given abx prefer to use this one out of all with the least amount of side effects. VITALS: BP 118/64 Pulse 83 Temp 37.2 C (99 F) Resp 23 Wt 47.6 kg (105 lb) LMP (LMP Unknown) SpO2 96% BMI 19.20 kg/m PHYSICAL EXAM: GEN: mildly ill appearing, cachectic HEENT: PERRL, EOMI, conjunctiva clear Ears: canals clear. TMs without erythema, bulge, or effusion Sinuses: non-tender frontal sinus, non-tender maxillary sinuses Throat: moist mucous membranes, no erythema, no exudate Neck: supple, no thyromegaly, no lymphadenopathy HEART: regular rate and rhythm, no murmurs LUNGS: bilateral crackles, no increased WOB ASSESSMENT/PLAN: 1. COPD with exacerbation (HCC) - ICD9: 491.21, ICD10: J44.1 - AZITHROMYCIN 250 MG TABLET - PREDNISONE 20 MG TABLET - 2019 CORONAVIRUS Follow up with worsening cough, worsening shortness of breath, increasing chest pain, or late onset fever. Jake Johnson MD documented in this encounter [facility] 08-12-2022 Note HNO ID: [id number] Author: Sherry Florez MD Service: ? Author Type: Physician Type: Progress Notes Filed: 08/20/2022 2:47 PM Note Text: [facility] Name: Jessica Gloria : 1955 Purpose: 2 month follow-up Today's Date: 08/20/2022 Last Visit: 06/11/2022 Chief complaint: Neck, Thoracic and Low back Pain Interval History: Jessica Gloria returns today for a follow-up encounter, reporting that since last encounter, the overall pain and functional disability arising from the chief complaint has not improved. She had a PET scan, saw an Oncologist, reportedly was told that she may not be able to tolerate a pulmonary biopsy. She continues to follow with Pulmonology for COPD. She is waiting to hear back about next steps. She is having less cramps in the feet on her current pain regimen. Pain primarily in the left neck/shoulder border today. Pain Description: Timing: constant Character: Aching and Dull Primary Location: Neck, thoracic and low back Radiation: none The patient denies difficulty with bowel or bladder control. Regarding medications: The following medication(s) were started or modified: none The following medication(s) were discontinued: none The following medication(s) were continued: [place] TID-QID #40 (08/10/2022) - bridge, normally #105/mo #remainin Last taken: 1030 am Tizanidine PRN Overall, the medication(s) have helped improve pain and ADL's. They are well-tolerated. The following procedures were performed: DATE PROCEDURE IMPROVEMENT none Physical Therapy or Chiropractics was not prescribed. The following new imaging or diagnostic tests were obtained, with relevant findings reported below: DXA Notable Events During Course of Treatment: 04/2022 - Reports she was back in the hospital for SOB and COPD. She was discharged on 05/28/22. She was on steroids to help. Current Status: INTAKE PAIN ASSESSMENT 06/11/2022 07/27/2022 Are you having pain associated with your visit today? Yes, Provider notified Yes, Provider notified Pain Scales Verbal (Numeric Rating or Visual Analog Scale) Verbal (Numeric Rating or Visual Analog Scale) Pain Level 5 - Pain Location Back-Middle Abdomen-Mid Lower Description Tingling;Numbness;Sharp;Radiati ng;Aching;Throbbing Aching;Pressure Duration Amount of Time - 1 Duration Units Years Years Frequency Continuous Intermittent Intervention/Comfort measure Medication;Reposition;Relaxatio n;Positioning - Comments - - Pain Assessment - - Current Anti-Coagulant Use: No Risk Assessment: ERIKA-7: No flowsheet data found.(0-4) minimal anxiety, (5-9) mild anxiety, (10-14) moderate anxiety, (15-21) severe anxiety PHQ-9: No flowsheet data found.(0-4) minimal depression, (5-9) mild depression, (10-14) moderate depression, (15-19) moderately severe depression, (20-27) severe depression Compliance: PDMP website checked and validated. All prescriptions have been APPROPRIATELY filled. No suspicious activity was identified. 08/20/2022 by Sherry Florez MD Last Drug screen: 06/30/2022 appropriate (positive hydrocodone and breakdown products) 04/09/22 appropriate. Compliance: Safety Checklist: Are you taking proper precautions to safe guard your medication? Yes Taking the medications as prescribed? Yes Getting pain medications from another physician? No Obtaining pain medication from another source? No Sharing medications with friends/family? No Quality of life improved as a result of taking these medications? Yes Any side effect with this medication? No Justification for Continued Opioid Care: Adequate analgesia? Yes Aberrant drug seeking behavior? No Adverse reactions? No Medications improve quality of life? Yes Allergies: ALLERGIES Allergen Reactions Bactrim [Sulfametho* Other: See Comments [place] sick, barely could breath. [place] deathly sick . GI upset Penicillins Anaphylaxis As a child passed out in md office after PCN injection. Zoloft [Sertraline * GI Upset GI upset, chest burning, muscle ache Ipratropium Other: See Comments Blurry vision, abdominal cramping, tremor, headache. Tudorza Pressair [A* Other: See Comments Heart palpitations, blurry vision, abdominal cramping, tremor, headache. Aclidinium Other: See Comments Cymbalta [Duloxetin* Intolerance panic Elavil [Amitriptyli* Intolerance GI upset, chest burning Fluticasone-Umeclid* Other: See Comments Gabapentin Intolerance Cough, sob, anxiety, increased drowsiness Incruse Ellipta [Um* Other: See Comments Heart palpitations, blurry vision, abdominal cramping, tremor, headache. Levofloxacin Other: See Comments pressure in head. Feel like she is going to throw up and pass out. Lyrica [Pregabalin] Other: See Comments Chest discomfort,burping,sob Methylprednisone Myalgia Sertraline GI Upset Sulfamethoxazole Other: See Comments Trimethoprim Other: See (more content not included)... [facility] 07-30-2022 Miscellaneous Notes Addended by: LILLIE BRAN on: 07/30/2022 02:19 PM Modules accepted: Orders OARRS Review, no aberrant behaviors or abnormal UDS. Bridge Rx sent to her pharmacy. Needs to follow up as scheduled for routine OV and refills. Thank you, Lillie Bran APRN.CONFIDENTIAL SECRETARY Patient is requesting a bridge for when she runs out of medication on 08/10 to get her to her appointment for 08/20 please advise. Darlin Wise documented in this encounter [facility] 07-29-2022 Note HNO ID: [id number] Author: Domingo Purdy RT(R) Service: ? Author Type: Technologist Type: Progress Notes Filed: 07/29/2022 11:11 AM Note Text: Radiology Service Progress Note PATIENT NAME: Jessica Gloria DATE OF SERVICE: July 29, 2022 TIME: 10:59 AM PATIENT IDENTITY VERIFICATION COMPLETED USING TWO (2) IDENTIFIERS: Name and Date of confirmed by patient verbally. FALL SCREENING: Has the patient had 2 falls in the last year or 1 fall with injury or currently using an Ambulatory Assistive Device (Walker, Cane, Wheelchair, Crutches, etc.)? No PATIENT GENDER DATA: Female. status: : No status: NO. PATIENT RELEVANT IMPLANT DATA REVIEWED: Not Applicable RADIOLOGY DEPARTMENT: Bone Density PERIPHERAL IV DATA: Not applicable SIGNED BY: RT Harleen(R) July 29, 2022 10:59 AM [facility] 07-27-2022 Note HNO ID: [id number] Author: Yana Herrera APRN.CONFIDENTIAL SECRETARY Service: ? Author Type: Nurse Practitioner Type: Progress Notes Filed: 07/27/2022 4:06 PM Note Text: Animal Care Provider offered: Patient declinesRadha Lopez is a 66 year old who presents for an annual gynecologic exam with complaints - intermittent pain over bladder and sometimes it shoots into back or up into left side. Gets strong urge to void and pressure before voiding and sometimes can not start voiding for a while. Has not used the estrogen cream to treat urethral caruncle for over one year. Postmenopausal: Yes since age 49 HRT use: No. Last Pap: 2017 abnormal HPV: 2018 negative History of abnormal pap: Yes ASCUS 2016 Last mammogram: 2020 normal History of abnormal mammogram: Yes, has needed additional imaging Sexually active: Yes, rare 4 months ago Concern for STD: no Time with current partner: long-term Hot flashes: Yes Night sweats: Yes Vaginal dryness: Yes OB History T4 L4 SAB1 IAB0 Ectopic0 Multiple0 Live Births0 Tattooer History LMP: LMP Unknown, Postmenopausal Age at Menarche: Age at First : Age at Menopause: Tattooer History Comments: Sexual Activity: Yes; Male; Postmenopausal Contraception: Tubal Ligation PAST MEDICAL HISTORY Diagnosis Date Acid reflux Back pain COPD (chronic obstructive pulmonary disease) ([facility]) 2017 FEV1 0.95L, 40% pred. COPD (chronic obstructive pulmonary disease) ([facility]) Kidney stones Osteopenia frax score 4% hip fracture risk 2017 start fosamax repeat imaging 1-2 years Unspecified asthma(493.90) PAST SURGICAL HISTORY Procedure Laterality Date COLONOSCOPY 01/20/2022 COLONOSCOPY FLX DX W/COLLJ SPEC WHEN PFRMD 05/27/2011 Colonoscopy CYSTO CALIBRATION DILAT URTL STRIX/STENOSIS N/A 11/22/2018 EGD W/O BRSH SPEC VARICIES INJ 01/20/2022 LAPAROSCOPY SURG CHOLECYSTECTOMY 2005 Cholecystectomy, lap LIG/TRNSXJ FLP TUBE ABDL/VAG APPR UNI/BI Tubal ligation LITHOTRIPSY XTRCORP SHOCK WAVE Lithotripsy LUNG BIOPSY PAST SURGICAL HISTORY OF 1981 lung biopsy PAST SURGICAL HISTORY OF Right 05/2020 CT guided biopsy on Lung. Dr. Brayden ALONSO OPER STRES INCONTINENCE 08/2011 FAMILY HISTORY Problem Relation Age of Onset Blood Disease Father Blood Clots Heart Father Kidney Disease Sister Diabetes Sister Hypertension Sister other (Blood Clots) Sister COPD Sister Emphysema Sister other (Blood Clots) Sister Hypertension Sister Hypertension Brother Diabetes Brother Kidney Disease Brother Diabetes Brother Cancer Maternal Grandmother Lung other (Other) Paternal Grandmother with TB. Did not live with patient. Heart Daughter Hypertension Son Colon Cancer Other Nephew SOCIAL HISTORY Social History Tobacco Use Smoking status: Every Day Packs/day: 1.00 Years: 33.00 Pack years: 33.00 Types: Cigarettes Start date: 04/10/1981 Smokeless tobacco: Never Tobacco comments: smoking 1 ppd. Vaping Use Vaping Use: Never used Substance Use Topics Alcohol use: No Drug use: No REVIEW OF SYSTEMS Abdomen: see HPI Bladder: see HPI Breast: No breast lumps, nipple d/c, overlying skin changes, redness or skin retraction Allergies and current medication updated:Yes EXAM: BP 154/68 Ht 5' 2 (1.58m) Wt 104 lb (47.2kg) BMI 19.02 kg/(m2). GENERAL: pleasant, female in no apparent distress HEENT: Normocephalic, atraumatic, mucus membranes moist, and no lesions NECK: Supple, full range of motion, no adenopathy, and thyroid normal DERMATOLOGY: Normal, without lesions, non-icteric, and non-hirsute BREAST: soft, non-tender, symmetric, no dominant mass, normal nipple-areolar complex, no lymphadenopathy, and no nipple discharge CHEST: Normal inspiratory effort ABDOMEN: soft, non-tender, and no masses PELVIC: external genitalia normal, normal Bartholin's glands, urethra, Iaeger's glands, no vulvar lesions, no cervical lesions, physiologic discharge present, normal appearing perineal body and perianal region. Urethral caruncle 8 mm. Vaginal atrophy. BIMANUAL: uterus normal size, shape and consistency, no adnexal masses, and non-tender RECTOVAGINAL: deferred. NEURO: alert and oriented x3,exam grossly non-focal EXTREMITIES: normal ASSESSMENT/PLAN: 1) Health maintenance: Pap done with HPV. Mammogram ordered Nutrition, exercise and routine health maintenance exams reviewed. Smoking cessation: Benefits of smoking cessation reviewed. Patient encouraged to avoid smoking. Colon cancer screening: up to date with screening BMD: ordered 2. Difficulty in micturition - ICD9: 788.99, ICD10: R39.198 - Urethral caruncle - CONSULT TO URO GYNECOLOGY - Dr Green at [facility] - UA DIP, URINE (POC) - trace intact blood only - URINE CULTURE 3. Urethral caruncle - ICD9: 599.3, ICD10: N36.2 - has not used prescribed estradiol cream for over one year. Now having difficulty starting urine stream. Shown with (more content not included)... [facility] 07-27-2022 Instructions Yana Herrera APRN.CNP - 07/27/2022 3:24 PM EST Estrace cream - Use 1 g vaginally once daily. And apply fingertip amount to urethral caruncle every night x 14 nights then twice weekly. Make appointment with Dr Green for evaluation of urethral caruncle. documented in this encounter [facility] 07-27-2022 History of Presen t illness Narrative Animal Care Provider offered: Patient declines. Jessica is a 66 year old who presents for an annual gynecologic exam with complaints - intermittent pain over bladder and sometimes it shoots into back or up into left side. Gets strong urge to void and pressure before voiding and sometimes can not start voiding for a while. Has not used the estrogen cream to treat urethral caruncle for over one year. Postmenopausal: Yes since age 49 HRT use: No. Last Pap: 2018 abnormal HPV: 2018 negative History of abnormal pap: Yes ASCUS 2016 Last mammogram: 2020 normal History of abnormal mammogram: Yes, has needed additional imaging Sexually active: Yes, rare 4 months ago Concern for STD: no Time with current partner: long-term Hot flashes: Yes Night sweats: Yes Vaginal dryness: Yes OB History T4 L4 SAB1 IAB0 Ectopic0 Multiple0 Live Births0 Tattooer History LMP: LMP Unknown, Postmenopausal Age at Menarche: Age at First : Age at Menopause: Tattooer History Comments: Sexual Activity: Yes; Male; Postmenopausal Contraception: Tubal Ligation PAST MEDICAL HISTORY Diagnosis Date Acid reflux Back pain COPD (chronic obstructive pulmonary disease) ([facility]) 2016 FEV1 0.95L, 40% pred. COPD (chronic obstructive pulmonary disease) ([facility]) Kidney stones Osteopenia frax score 4% hip fracture risk 2016 start fosamax repeat imaging 1-2 years Unspecified asthma(493.90) PAST SURGICAL HISTORY Procedure Laterality Date COLONOSCOPY 01/20/2022 COLONOSCOPY FLX DX W/COLLJ SPEC WHEN PFRMD 05/27/2011 Colonoscopy CYSTO CALIBRATION DILAT URTL STRIX/STENOSIS N/A 11/22/2018 EGD W/O BRSH SPEC VARICIES INJ 01/20/2022 LAPAROSCOPY SURG CHOLECYSTECTOMY 2005 Cholecystectomy, lap LIG/TRNSXJ FLP TUBE ABDL/VAG APPR UNI/BI Tubal ligation LITHOTRIPSY XTRCORP SHOCK WAVE Lithotripsy LUNG BIOPSY PAST SURGICAL HISTORY OF 1981 lung biopsy PAST SURGICAL HISTORY OF Right 05/2020 CT guided biopsy on Lung. Dr. Owen SLTOMMY OPER STRES INCONTINENCE 08/2011 FAMILY HISTORY Problem Relation Age of Onset Blood Disease Father Blood Clots Heart Father Kidney Disease Sister Diabetes Sister Hypertension Sister other (Blood Clots) Sister COPD Sister Emphysema Sister other (Blood Clots) Sister Hypertension Sister Hypertension Brother Diabetes Brother Kidney Disease Brother Diabetes Brother Cancer Maternal Grandmother Lung other (Other) Paternal Grandmother with TB. Did not live with patient. Heart Daughter Hypertension Son Colon Cancer Other Nephew SOCIAL HISTORY Social History Tobacco Use Smoking status: Every Day Packs/day: 1.00 Years: 33.00 Pack years: 33.00 Types: Cigarettes Start date: 04/10/1981 Smokeless tobacco: Never Tobacco comments: smoking 1 ppd. Vaping Use Vaping Use: Never used Substance Use Topics Alcohol use: No Drug use: No REVIEW OF SYSTEMS Abdomen: see HPI Bladder: see HPI Breast: No breast lumps, nipple d/c, overlying skin changes, redness or skin retraction Allergies and current medication updated:Yes EXAM: BP 154/68 Ht 5' 2 (1.58m) Wt 104 lb (47.2kg) BMI 19.02 kg/(m^2). GENERAL: pleasant, female in no apparent distress HEENT: Normocephalic, atraumatic, mucus membranes moist, and no lesions NECK: Supple, full range of motion, no adenopathy, and thyroid normal DERMATOLOGY: Normal, without lesions, non-icteric, and non-hirsute BREAST: soft, non-tender, symmetric, no dominant mass, normal nipple-areolar complex, no lymphadenopathy, and no nipple discharge CHEST: Normal inspiratory effort ABDOMEN: soft, non-tender, and no masses PELVIC: external genitalia normal, normal Bartholin's glands, urethra, Iaeger's glands, no vulvar lesions, no cervical lesions, physiologic discharge present, normal appearing perineal body and perianal region. Urethral caruncle 8 mm. Vaginal atrophy. BIMANUAL: uterus normal size, shape and consistency, no adnexal masses, and non-tender RECTOVAGINAL: deferred. NEURO: alert and oriented x3,exam grossly non-focal EXTREMITIES: normal ASSESSMENT/PLAN: 1) Health maintenance: Pap done with HPV. Mammogram ordered Nutrition, exercise and routine health maintenance exams reviewed. Smoking cessation: Benefits of smoking cessation reviewed. Patient encouraged to avoid smoking. Colon cancer screening: up to date with screening BMD: ordered 2. Difficulty in micturition - ICD9: 788.99, ICD10: R39.198 - Urethral caruncle - CONSULT TO URO GYNECOLOGY - Dr Green at [facility] - UA DIP, URINE (POC) - trace intact blood only - URINE CULTURE 3. Urethral caruncle - ICD9: 599.3, ICD10: N36.2 - has not used prescribed estradiol cream for over one year. Now having difficulty starting urine stream. Shown with mirror and give verbal and written instructions for use. - CONSULT TO URO GYNECOLOGY - ESTRADIOL 0.01% (0.1 MG/GRAM) VAGINAL CREAM 4. Postmenopausal atrophic vaginitis - ICD9: 627.3, ICD10: N95.2 - ESTRADIOL 0.01% (0.1 MG/GRAM) VAGINAL CREAM 5. Vagina itching - ICD9: 698.1, ICD10: N89.8 - CHRISTIE / TRICHOMONAS AMPLIFICATION - BACTERIAL VAGINOSIS AMPLIFICATION 6. Vaginal odor - ICD9: 625.8, ICD10: N89.8 - CHRISTIE / TRICHOMONAS AMPLIFICATION - BACTERIAL VAGINOSIS AMPLIFICATION 7) Follow up one year or sooner as needed Yana Herrera APRN.CNP documented in this encounter [facility] 07-20-2022 Miscellaneous Notes July 21, 2022 PID: [id number] Jessica Gloria [address] [place] [address] Dear Ms. Gloria, We are pleased to inform you that the results of your recent breast imaging exam on 07/20/2022 are normal. Early detection of cancer is very important. We also understand recommendations regarding breast cancer screening are controversial. Please discuss with your primary care provider which strategy is best for you and whether a mammogram is right for you. Your imaging studies and report will be kept on file at [facility] as part of your permanent medical record and are available for your continuing care. Thank you for allowing us to help in meeting your health care needs. Sincerely, Dr. Partida Interpreting Radiologist [facility] (Normal over 40) documented in this encounter [facility] 07-20-2022 Note HNO ID: [id number] Author: RT Dodie(R) Service: ? Author Type: Technologist Type: Progress Notes Filed: 07/20/2022 1:59 PM Note Text: Radiology Service Progress Note PATIENT NAME: Jessica Gloria DATE OF SERVICE: July 20, 2022 TIME: 1:59 PM PATIENT IDENTITY VERIFICATION COMPLETED USING TWO (2) IDENTIFIERS: Name and Date of confirmed by patient verbally. FALL SCREENING: Has the patient had 2 falls in the last year or 1 fall with injury or currently using an Ambulatory Assistive Device (Walker, Cane, Wheelchair, Crutches, etc.)? No PATIENT GENDER DATA: Female. status: : No status: NO. PATIENT RELEVANT IMPLANT DATA REVIEWED: Not Applicable RADIOLOGY DEPARTMENT: Mammography PERIPHERAL IV DATA: Not applicable SIGNED BY: RT Dodie(R) July 20, 2022 1:59 PM [facility] 07-20-2022 History of Presen t illness Narrative Radiology Service Progress Note PATIENT NAME: Jessica Gloria DATE OF SERVICE: July 20, 2022 TIME: 1:59 PM PATIENT IDENTITY VERIFICATION COMPLETED USING TWO (2) IDENTIFIERS: Name and Date of confirmed by patient verbally. FALL SCREENING: Has the patient had 2 falls in the last year or 1 fall with injury or currently using an Ambulatory Assistive Device (Walker, Cane, Wheelchair, Crutches, etc.)? No PATIENT GENDER DATA: Female. status: : No status: NO. PATIENT RELEVANT IMPLANT DATA REVIEWED: Not Applicable RADIOLOGY DEPARTMENT: Mammography PERIPHERAL IV DATA: Not applicable SIGNED BY: RT Dodie(R) July 20, 2022 1:59 PM documented in this encounter [facility] 07-16-2022 Miscellaneous Notes Patient's request for medication is as follows: Requested Prescriptions Pending Prescriptions Disp Refills rosuvastatin (CRESTOR) 10 mg tablet [Pharmacy Med Name: ROSUVASTATIN CALCIUM 10 MG TAB] 90 tablet 3 Sig: take 1 tablet by mouth at bedtime Last seen 01/19/2022. Prescription(s) as above. Please process accordingly. Francoise Holguin LPN documented in this encounter [facility] 07-08-2022 Miscellaneous Notes Patient notified of results, verbalizes understanding of instructions. Pt stated she will come in and have Magnesium checked. Halley Doherty LPN Can you please call the patient and let her know that I reviewed her lab results. Labs were all normal. However they did not send out the magnesium to be checked. If she would like this checked she can come in anytime to have this drawn. Please let me know if she has any questions. Thank you. Magalys Mckeon APRN.CONFIDENTIAL SECRETARY documented in this encounter [facility] 07-07-2022 Telephone encounter Note Name of caller: Willie Contact phone number: [phone] Relationship to Patient: [facility] Radiology Provider: Dr Rizo Practice: Cardiothoracic Surgery Chief Complaint/Reason for Call: Disc for patient ready for pickler helper tomorrow morning. Best time of day caller can be reached: AM Patient advised that office/PCP has 24-48 business hours to return their call: No [facility] 07-07-2022 Miscellaneous Notes Name of caller: Willie Contact phone number: [phone] Relationship to Patient: [facility] Radiology Provider: Dr Rizo Practice: Cardiothoracic Surgery Chief Complaint/Reason for Call: Disc for patient ready for pickler helper tomorrow morning. Best time of day caller can be reached: AM Patient advised that office/PCP has 24-48 business hours to return their call: No documented in this encounter [facility] 06-11-2022 Instructions Lillie Bran APRN.DANIELLA - 06/11/2022 3:14 PM EST Activity as tolerated Use Ice and/or heat as tolerated as needed documented in this encounter [facility] 06-11-2022 History of Presen t illness Narrative Images from the original note were not included. [facility] Today's Date: 06/11/2022 Last Visit: 04/09/22 w/Dr. Florez Name: Jessica Gloria : 1955 Chief complaint: Neck, Thoracic and Low back Pain History of Present Illness: Since last encounter, Jessica Gloria; reports that the chronic problem(s) detailed above are Unchanged. Denies or worsening concerns symptoms today. Reports she was back in the hospital in late Apr. For SOB and COPD. She was discharged on 05/28/22. She was on steroids to help. Admits to taking some extra pain medication this past month. Pain Description: Timing: constant Character: Aching and Dull Primary Location: Neck, thoracic and low back Radiation: none The patient denies difficulty with bowel or bladder control. New Problems reported: See above Recall: Patient of Dr. Florez Current Status: INTAKE PAIN ASSESSMENT 06/05/2022 06/11/2022 Are you having pain associated with your visit today? No Yes, Provider notified Pain Scales - Verbal (Numeric Rating or Visual Analog Scale) Pain Level - 5 Pain Location - Back-Middle Description - Tingling;Numbness;Sharp;Radiati ng;Aching;Throbbing Duration Amount of Time - - Duration Units - Years Frequency - Continuous Intervention/Comfort measure - Medication;Reposition;Relaxatio n;Positioning Comments - - Pain Assessment - - Current Pain Medications: Opioids: Engelhard TID-QID NSAIDS: Anti-depressants: Anti-convulsants: Muscle relaxants: Tizandine Others: Analgesia: adequate Current Anti-Coagulant Use: No Opioid Medications requiring refills today: Engelhard Date last filled: 05/12/22 Quantity filled: 105 tabs How many left: 2 Time most recent dose taken: 06/11/2022 Risk Assessment: ERIKA-7: No flowsheet data found.(0-4) minimal anxiety, (5-9) mild anxiety, (10-14) moderate anxiety, (15-21) severe anxiety PHQ-9: No flowsheet data found.(0-4) minimal depression, (5-9) mild depression, (10-14) moderate depression, (15-19) moderately severe depression, (20-27) severe depression Compliance: PDMP website checked and validated. All prescriptions have been APPROPRIATELY filled. No suspicious activity was identified. 06/11/2022 by Lillie Bran APRN.CONFIDENTIAL SECRETARY Last Drug screen: 04/09/22 appropriate. Compliance: Safety Checklist: Are you taking proper precautions to safe guard your medication? Yes Taking the medications as prescribed? Yes Getting pain medications from another physician? No Obtaining pain medication from another source? No Sharing medications with friends/family? No Quality of life improved as a result of taking these medications? Yes Any side effect with this medication? No Justification for Continued Opioid Care: Adequate analgesia? Yes Aberrant drug seeking behavior? No Adverse reactions? No Medications improve quality of life? Yes Allergies: ALLERGIES Allergen Reactions Bactrim [Sulfametho* Other: See Comments [place] sick, barely could breath. [place] deathly sick . GI upset Penicillins Anaphylaxis As a child passed out in md office after PCN injection. Zoloft [Sertraline * GI Upset GI upset, chest burning, muscle ache Ipratropium Other: See Comments Blurry vision, abdominal cramping, tremor, headache. Tudorza Pressair [A* Other: See Comments Heart palpitations, blurry vision, abdominal cramping, tremor, headache. Aclidinium Other: See Comments Cymbalta [Duloxetin* Intolerance panic Elavil [Amitriptyli* Intolerance GI upset, chest burning Fluticasone-Umeclid* Other: See Comments Gabapentin Intolerance Cough, sob, anxiety, increased drowsiness Incruse Ellipta [Um* Other: See Comments Heart palpitations, blurry vision, abdominal cramping, tremor, headache. Levofloxacin Other: See Comments pressure in head. Feel like she is going to throw up and pass out. Lyrica [Pregabalin] Other: See Comments Chest discomfort,burping,sob Methylprednisone Myalgia Sertraline GI Upset Sulfamethoxazole Other: See Comments Trimethoprim Other: See Comments Doxycycline Mental Status Change Makes her feel spacey . If given abx prefer to use this one out of all with the least amount of side effects. Data Reviewed: Reviewed personally on today's date 06/11/2022 Relevant Imaging: MRI Spine Report MRI THORACIC SPINE WO IVCON Exam End: 12/30/2021 3:01 PM (Final result) Narrative: * * *Final Report* * * DATE OF EXAM: Dec 30 2021 3:01PM WR [id number] - MRI THORACIC SPINE WO IVCON / PROCEDURE REASON: Radiculopathy, thoracic region * * * * Physician Interpretation * * * * EXAMINATION: MRI CERVICAL SPINE WO IVCON, MRI THORACIC SPINE WO IVCON CLINICAL HISTORY: Cervical and thoracic radiculopathy. TECHNIQUE: Routine cervical and thoracic spine MR protocol without gadolinium. MQ: [id number] COMPARISON: None. RESULT: CERVICAL: Counting reference: Craniocervical junction. Anatomic Variants: None. Localizer images: Patchy infiltrates are noted in the upper lobes there appears to be thickening or small amount of fluid in the right major fissure on the dining service worker images but evaluation of the lungs is limited by MRI. Alignment: Accentuation of the normal cervical lordosis likely secondary to accentuated thoracic kyphosis. Craniocervical junction: Alignment at the craniocervical junction is within normal limits. Cord: The cervical spinal cord is within normal limits of signal intensity and morphology. Bone marrow signal/fracture: No evidence of pathologic marrow infiltration. No evidence of prior fracture. Cervical soft tissues: The paraspinal soft tissues are within normal limits. C2-C3: Canal and foramina are patent. C3-C4: Mild asymmetric facet degenerative changes. Canal and foramina remain patent. C4-C5: Canal and foramina are patent. C5-C6: Mild asymmetric facet degenerative changes. Canal and foramina remain patent. C6-C7: Canal and foramina are patent. C7-T1: Canal and foramina are patent. THORACIC: Counting reference: Lumbosacral junction. For the purposes of this report, L4-5 is considered the level of the iliac crest and assume there are 5 lumbar-type vertebrae. Anatomic variant: None. Audio Visual Manager (topogram) images: No additional findings. Alignment: Accentuation of the normal thoracic kyphosis. Mild to moderate disc space narrowing is noted in the midthoracic spine. Cord: The thoracic spinal cord and conus are within normal limits of signal intensity and morphology. Bone marrow signal/fracture: No evidence of pathologic marrow infiltration. No evidence of prior fracture. Thoracic soft tissues: The paraspinal soft tissues are within normal limits. Canal and foramina: Thoracic canal and foramina are patent. Impression: IMPRESSION: Mild cervical and thoracic degenerative disc disease without significant canal or foraminal stenosis. Cervical Anatomic Variant: None. Assume 7 cervical vertebrae with counting from the craniocervical junction. Anatomic Thoracic/Lumbar Variant: None. L4-5 is considered the level of the iliac crest and assume there are 5 lumbar-type vertebrae. Hand Umbrella Tipper: PEEWEE Transcribe Date/Time: Dec 30 2021 3:18P Dictated by : RACHEAL MCKEON MD This examination was interpreted and the report reviewed and electronically signed by: RACHEAL MCKEON MD on Dec 30 2021 3:28PM EST Pain Procedures: DATE PROCEDURE IMPROVEMENT 11/07/2021 RFA Right C3-4,4-5,5-6 80% x 3 months 08/06/2021 RFA Left T5-6,6-7,7-8 50% x 1 week 07/23/2021 RFA Right T5-6,6-7,7-8 50% x 1 week Current Medications, Past Medical History, Past Surgical History, Family History, Social History and Review of Systems: On today's date, 06/11/2022, noted above, I have confirmed and edited as necessary, the PFSH and ROS obtained by others. Physical Exam: 06/11/22 1431 Pulse: 80 Resp: 18 SpO2: 97% Constitutional: underweight HEENT: Normal Cephalic, Atraumatic, Non-icteric sclera Eyes: Conjunctiva clear. No discharge from eyes Cardiovascular: Appears well perfused Lymphatic: No visible regional lymphadenopathy Skin: No visible rashes or ecchymosis Psychiatric: Full affect, Alert, Pleasant MSK: Extremities: [place], no deficits or edema Gait: Normal. Ambulates unassisted Neuro: Motor Strength: Upper and lower extremity 5/5 bilaterally Sensory: intact to light touch Diagnoses: (M47.812) Cervical spondylosis without myelopathy (primary encounter diagnosis) (M47.814) Thoracic spondylosis without myelopathy (M47.817) Lumbosacral spondylosis without myelopathy (Z79.891) senior living current use of opiate analgesic (G89.29) Other chronic pain Impression & Plan: 66 year old female, who presents with complaint(s) of chronic neck, mid and low back pain and medication refills. States since her last OV she was readmitted to the hospital for SOB/COPD exacerbation. She was admitted for a couple of days. She had a PET scan yesterday to evaluate her for metastatic disease. She is follows her crepe maker closely. She is O2 dependence at . She has follow up on 08/03/21 Jessica Gloria would benefit from the following to decrease pain, improve function and/or work participation, and improve quality of life: Medications: Refill: Requested Prescriptions Signed Prescriptions Disp Refills HYDROcodone-acetaminophen (NORCO) 5-325 mg per tablet 105 tablet 0 Sig: Take 1 tablet by mouth every 6 hours as needed for pain for up to 30 days. Take one pill 4 times daily as needed for back pain 2 of 2 Rx Do not start before July 11, 2022. HYDROcodone-acetaminophen (NORCO) 5-325 mg per tablet 105 tablet 0 Sig: Take 1 tablet by mouth every 6 hours as needed for pain for up to 30 days. Take one pill 4 times daily as needed for back pain 1 of 2 Rx naloxone 4 mg/actuation nasal spray (NARCAN) 1 Each 0 [place] by nasal (alternating) route as directed for 1 day. 1 spray into 1 nostril. Additional doses may be given every 2-3 minutes until emergency arrives. UDS, NAOIC/ORT: Reviewed and consistent, NAOIC/ORT up to date. She does admit to taking a few extra pain pills with her hospitalization. We discussed to take her medications no more then prescribed. She has no previous discrepancies, she voiced understanding. Functional Sabianism: Additional Studies: Referrals: Additional: Patient reports they are happy with current treatment care plan. At this time will continued the patient's opioids today for 60 days. The patient continues to see benefit and improvement in their quality of life with adequate analgesia and ADLS's maintained. No adverse effects, no aberrant behaviors noted; OARRS reviewed and consistent. Risks of long-term medication use was reviewed and Patient advised the above medications may cause impairment of judgement while driving or operating machinery. Patient instructed on safe storage of medications We will re-evaluate opiate regimen in 60 days, office visit, to determine efficacy of treatment to ensure that we are using the lowest dose for maximum benefit. Today we discussed the use of opioids; and the risks of adverse events of prolonged and/or combined use. I offered RX for narcan, patient agrees to fill Rx and verbalized understanding of the above. Depending on response to the above plan, consider: Follow-up: 2 months for evaluation of response to treatment plan and optimization, for medication evaluation, optimization and refill as appropriate Attribution: In addition to reviewing the information noted above, some elements copied from my most recent clinical note(s), including the physical exam (completed in entirety today), and the impression and plan sections, have been updated where appropriate. All reflect current medical decision making from today's date. Lillie Bran APRN.CONFIDENTIAL SECRETARY [facility] Review of Systems Constitutional: Positive for chills. Negative for activity change, fever and unexpected weight change. Gastrointestinal: Negative for bowel retention or incontinence Genitourinary: Positive for difficulty urinating. Negative for bladder retention or incontinence Musculoskeletal: Positive for arthralgias, back pain, gait problem, myalgias, neck pain and neck stiffness. Negative for joint swelling. Neurological: Positive for weakness and numbness. Negative for headaches. Psychiatric/Behavioral: Positive for sleep disturbance. Negative for dysphoric mood and suicidal ideas. The patient is nervous/anxious. documented in this encounter [facility] 06-05-2022 Instructions Magalys Mckeon APRN.DANIELLA - 06/05/2022 10:35 AM EST Get repeat labs in 2-3 weeks or sooner if needed. Recommend increasing water and fiber in the diet. May add on fiber supplement. You can use miralax 1-2 times per day as needed. Try to decrease caffeine beverages in the diet. Continue to take all medication as prescribed. Keep appointments for up coming testing and pulmonology. Red flag symptoms go to ER. Start Paxil 10 mg daily Follow up in 1 month, may be phone visit/virtual documented in this encounter [facility] 06-05-2022 History of Presen t illness Narrative This is a 66 year old female who presents today with: No chief complaint on file. HISTORY OF PRESENT ILLNESS: Jessica Gloria is a 66 year old female. No chief complaint on file. Transitional Care Management Progress Note The patients TCM visit was performed within the 14 days of discharge. Patient's Date of discharge: 05/28/2022 Date of initial coordinator contact after discharge: Discharge diagnosis: Dyspnea Medication review completed Yes HOSPITAL/ER FOLLOW UP: Reason for visit: Dyspnea Which facility: [facility] Date of visit: 05/26/2022-05/28/2022 Diagnosis: COPD exacerbation Testing done: WBC 11,000, D-dimer 406, BMP within normal limits. Chest x-ray showed widespread heterogeneous bilateral lung infiltrates that may represent pulmonary edema or atypical pneumonia. CTA chest was negative for pulmonary embolism. It did however show bilateral spiculated nodular opacities. Suspicious for metastatic disease or malignancy given there morphologic appearance. Recommend PET/CT. Treatment given: Solu-Medrol, DuoNeb, Mucinex, and oxygen. Given prednisone taper for at home. Follow-up with crepe maker at [facility]. Engelhard for back pain. Current symptoms: Using O2 2L at bedtime. Refers that difficulty with breathing yesterday. Finished prednisone. Refers that when she is having breathing symptoms it increases her anxiety. Refers she is having a better day today. Will get SOB at times with rest and with activity. Intermittent wheezing. Has been trying to rest. Feels fatigued. Struggling with chronic constipation. Refers she drinks a lot of coffee and has been trying to increase water intake. Smoking 1 PPD, Has tried to quit in the past. Refers that smoking helps her nerves. Refers she knows she needs to quit. Just saw Dr. Owen (pulmonology [facility]), Pet scan next week and then a walk test. Next follow up 07/03/2022. Placed on Breztri and stopped combivent and dulera. Has not started new medication yet. Mood: Refers she has had increased sadness and anxiety due to health problems. Using hydroxyzine as needed but refers medication makes her very tired. Denies any SI/HI. PAST MEDICAL HISTORY: PAST MEDICAL HISTORY Diagnosis Date Acid reflux Back pain COPD (chronic obstructive pulmonary disease) ([facility]) 2016 FEV1 0.95L, 40% pred. COPD (chronic obstructive pulmonary disease) ([facility]) Kidney stones Osteopenia frax score 4% hip fracture risk 2016 start fosamax repeat imaging 1-2 years Unspecified asthma(493.90) PAST SURGICAL HISTORY Procedure Laterality Date COLONOSCOPY 01/20/2022 COLONOSCOPY FLX DX W/COLLJ SPEC WHEN PFRMD 05/27/2011 Colonoscopy CYSTO CALIBRATION DILAT URTL STRIX/STENOSIS N/A 11/22/2018 EGD W/O [facility] SPEC VARICIES INJ 01/20/2022 LAPAROSCOPY SURG CHOLECYSTECTOMY 2005 Cholecystectomy, lap LIG/TRNSXJ FLP TUBE ABDL/VAG APPR UNI/BI Tubal ligation LITHOTRIPSY XTRCORP SHOCK WAVE Lithotripsy LUNG BIOPSY PAST SURGICAL HISTORY OF 1982 lung biopsy PAST SURGICAL HISTORY OF Right 05/2020 CT guided biopsy on Lung. Dr. Brayden ALONSO OPER STRES INCONTINENCE 08/2011 ALLERGIES Bactrim [Sulfamethoxazole-Trimethoprim] , Penicillins, Zoloft [Sertraline Hcl], Ipratropium, Tudorza Pressair [Aclidinium [place]], Aclidinium, Cymbalta [Duloxetine], Elavil [Amitriptyline], Iaktndqjpfz-Htdqytqol-Ifwiaaja, Gabapentin, Incruse Ellipta [Umeclidinium], Levofloxacin, Lyrica [Pregabalin], Methylprednisone, Sertraline, Sulfamethoxazole, Trimethoprim, and Doxycycline MEDICATIONS Current Outpatient Medications Medication Sig tiZANidine (ZANAFLEX) 4 mg tablet Take 1 tablet by mouth at bedtime as needed (muscle spasms). HYDROcodone-acetaminophen (NORCO) 5-325 mg per tablet Take 1 tablet by mouth every 6 hours as needed for pain for up to 30 days. Take one pill 4 times daily as needed for back pain 2 of 2 Rx Do not start before May 12, 2022. HYDROcodone-acetaminophen (NORCO) 5-325 mg per tablet Take 1 tablet by mouth every 6 hours as needed for pain for up to 30 days. Take one pill 4 times daily as needed for back pain 1 of 2 Rx Do not start before April 12, 2022. COMBIVENT RESPIMAT 20-100 mcg/actuation inhaler metoprolol succinate ER (TOPROL XL) 25 mg 24 hr tablet Take 1 tablet by mouth once daily. hydrOXYzine HCl (ATARAX) 25 mg tablet Take 1 tablet by mouth twice daily as needed for anxiety. loratadine (CLARITIN) 10 mg tablet Take 1 tablet by mouth once daily as needed. FOR ALLERGY SYMPTOMS SPIRIVA WITH HANDIHALER 18 mcg inhalation capsule inhale contents of 1 capsule daily (Patient not taking: Reported on 04/09/2022) ALBUTEROL SULFATE HFA INHALATION Inhale as instructed. famotidine (PEPCID) 20 mg tablet Take 1 tablet by mouth twice daily. polyethylene glycol 3350 (MIRALAX) 17 gram/dose powder Take 17 g by mouth once daily. As needed for constipation rosuvastatin (CRESTOR) 10 mg tablet Take 1 tablet by mouth daily at bedtime. fluticasone (FLONASE) 50 mcg/actuation nasal spray place 1 spray into each nostril twice a day Nebulizer Accessories kit 4 kits per month. Dx J44.9 albuterol (PROVENTIL) 2.5 mg /3 mL (0.083 %) nebulizer solution Use 3 mL via nebulizer every 4 hours as needed for Wheezing/Shortness of Breath. Use over 5-15minutes. Cholecalciferol, Vitamin D3, 2,000 unit cap Take 1 capsule by mouth once daily. DULERA 200-5 mcg/actuation inhaler Inhale 2 Puffs as instructed twice daily. Current Facility-Administered Medications Medication Dose Route Frequency perflutren lipid microspheres 1.3 mL in NaCl (PF) 0.9% 10 mL injection (DEFINITY) INTRAVENOUS DIRECTED PRN sodium chloride 0.9 % (flush) 10 mL (BD POSIFLUSH) 10 mL INTRAVENOUS DIRECTED PRN FAMILY HISTORY Problem Relation Age of Onset Blood Disease Father Blood Clots Heart Father Kidney Disease Sister Diabetes Sister Hypertension Sister other (Blood Clots) Sister COPD Sister Emphysema Sister other (Blood Clots) Sister Hypertension Sister Hypertension Brother Diabetes Brother Kidney Disease Brother Diabetes Brother Cancer Maternal Grandmother Lung other (Other) Paternal Grandmother with TB. Did not live with patient. Heart Daughter Hypertension Son Colon Cancer Other Nephew Social History Tobacco Use Smoking status: Every Day Packs/day: 1.00 Years: 33.00 Pack years: 33.00 Types: Cigarettes Start date: 04/10/1981 Smokeless tobacco: Never Tobacco comments: smoking 1 ppd. Vaping Use Vaping Use: Never used Substance Use Topics Alcohol use: No Drug use: No REVIEW OF SYSTEMS GENERAL: No weight loss, malaise or fevers/chills HEENT: Negative for frequent or significant headaches, No changes in hearing or vision. NECK: Negative for lumps, goiter, pain and significant neck swelling RESPIRATORY: + SOB/Wheezing CARDIOVASCULAR: Negative for chest pain, leg swelling, orthopnea, or palpitations GI: No nausea, vomiting, or diarrhea/constipation. No hematochezia/melena. No heartburn or reflux symptoms. : No history of dysuria, frequency or incontinence MUSCULOSKELETAL: Negative for joint pain or swelling. SKIN: Negative for lesions, rash, and itching ENDOCRINE: Negative for cold or heat intolerance, polyuria, polydipsia and goiter NEURO: No history of headaches, syncope, paralysis, seizures or tremors MOOD: + Anxiety/Sadness EXAM: BP 140/70 Pulse 74 Resp 16 Wt 46.7 kg (103 lb) SpO2 96% BMI 18.84 kg/m PHYSICAL EXAM: General Appearance: Well appearing, alert, in no acute distress, well-hydrated, well nourished. Skin: Skin color, texture, turgor normal, no suspicious rashes or lesions. Head: Normocephalic, no masses, lesions, tenderness or abnormalities. Eyes: Anicteric sclera. Extraocular movements are intact. Neck: Supple, no adenopathy; thyroid symmetric, normal size, no bruits. Lungs: Lungs clear to auscultation. No wheezing, rhonchi, rales. Unlabored on room air. Heart: RRR without murmur, gallop, or rubs. No ectopy. Extremities: No deformities, edema, skin discoloration, clubbing or cyanosis. Good capillary refill. Peripheral Pulses: Normal, Capillary refill <2secs, strong peripheral pulses, Pulses palpable. Neurologic: Gait normal. Sensation grossly intact. Mood: Pleasant, good eye contact, engaged. ASSESSMENT/PLAN: 1. Hospital discharge follow-up - ICD9: V67.59, ICD10: Z09 (primary diagnosis) - Mild improvement since hospital discharge. 2. COPD with exacerbation (HCC) - ICD9: 491.21, ICD10: J44.1 - Get repeat labs in 2-3 weeks. - Continue to take medication as prescribed. - Keep scheduled appointments for testing and pulmonology. - CBC + DIFF - COMP METABOLIC PANEL - MAGNESIUM BLD 3. Anxiety with depression - ICD9: 300.4, ICD10: F41.8 - Start Paxil 10 mg daily. - May continue to use hydroxyzine as needed for increased anxiety. - Patient education and instructions discussed. - PAROXETINE 10 MG TABLET 4. Smoker - ICD9: 305.1, ICD10: F17.200 - Cessation encouraged. - Discussed the use of patch and lozenge in the future when she decides to quit. - Physiologic and physical aspects of tobacco addiction as well as strategies for quitting were discussed. - Counseling was given focusing on the harmful effects of this addiction especially given the patient's medical condition(s) which will be worsened because of the chemicals in tobacco. - Counseling was given 3-4 minutes. 5. Chronic constipation - ICD9: 564.00, ICD10: K59.09 - Discussed constipation prevention in great detail. - Increase water and fiber in the diet. - May use MiraLAX 1-2 times per day as needed. Follow up in 1 month or sooner as needed. Discussed treatment plan and patient voices understanding. Patient's questions answered appropriately. Medications and potential side effects were discussed and patient voices understanding. Magalys Mckeon APRN.CONFIDENTIAL SECRETARY This note was partially generated using [employer] voice recognition system. Note was reviewed for accuracy. There may be minor misspellings or grammar miscues with [employer] voice recognition. documented in this encounter [facility] 05-28-2022 Hospital Discharg e instructions Patient Education 05/28/2022 11:46:10 Chronic Obstructive Pulmonary Disease Exacerbation, Loak-bu-Ysuo Chronic Obstructive Pulmonary Disease Exacerbation Chronic obstructive pulmonary disease (COPD) is a long-term (chronic) lung problem. In COPD, the flow of air from the lungs is limited. COPD exacerbations are times that breathing gets worse and you need more than your normal treatment. Without treatment, they can be life threatening. If they happen often, your lungs can become more damaged. If your COPD gets worse, your doctor may treat you with: Medicines. Oxygen. Different ways to clear your airway, such as using a mask. Follow these instructions at home: Medicines Take enqx-xea-dowwdfo and prescription medicines only as told by your doctor. If you take an antibiotic or steroid medicine, do not stop taking the medicine even if you start to feel better. Keep up with shots (vaccinations) as told by your doctor. Be sure to get a yearly (annual) flu shot. Lifestyle Do not smoke. If you need help quitting, ask your doctor. Eat healthy foods. Exercise regularly. Get plenty of sleep. Avoid tobacco smoke and other things that can bother your lungs. Wash your hands often with soap and water. This will help keep you from getting an infection. If you cannot use soap and water, use hand supervisor photoengraving. During flu season, avoid areas that are crowded with people. General instructions Drink enough fluid to keep your pee (urine) clear or pale yellow. Do not do this if your doctor has told you not to. Use a cool mist machine (vaporizer). If you use oxygen or a machine that turns medicine into a mist (nebulizer), continue to use it as told. Follow all instructions for rehabilitation. These are steps you can take to make your body work better. Keep all follow-up visits as told by your doctor. This is important. Contact a doctor if: Your COPD symptoms get worse than normal. Get help right away if: You are short of breath and it gets worse. You have trouble talking. You have chest pain. You cough up blood. You have a fever. You keep throwing up (vomiting). You feel weak or you pass out (faint). You feel confused. You are not able to sleep because of your symptoms. You are not able to do daily activities. Summary COPD exacerbations are times that breathing gets worse and you need more treatment than normal. COPD exacerbations can be very serious and may cause your lungs to become more damaged. Do not smoke. If you need help quitting, ask your doctor. Stay up-to-date on your shots. Get a flu shot every year. This information is not intended to replace advice given to you by your health care provider. Make sure you discuss any questions you have with your health care provider. Document Released: 06/02/2012 Document Revised: 05/27/2018 Document Reviewed: 07/19/2017 Aneumed Patient Education 2020 SwitchNote. Follow Up Care 05/26/2022 05:12:25 With:ANKIT MARTINEZ MD Address: [address] [place] [address]- When:06/05/2022 10:20:00 Comments:Follow-up as scheduled [facility] 05-28-2022 Note Discharge Instructions Thank you for allowing [facility] to assist you with your healthcare needs. The following is important discharge information regarding your hospital visit. Your Care Team [facility] Your Diagnosis COPD exacerbation Pulmonary nodules HTN (hypertension) Chronic back pain Dysphagia Chest pain Shortness of breath What to do next Instructions From Your Doctor You were admitted with a COPD exacerbation and treated with steroids and aerosols with improvement. You were taken off oxygen this morning with acceptable oxygen saturations on room. Please monitor your oxygen saturations at home and use your home oxygen as needed. Continue to use your aerosols as needed for shortness of breath and/or wheezing. You will be discharged on prednisone. Please finish the entire prescription. Follow-up with your crepe maker as scheduled on 06/03. Follow Up Appointments Follow Up with ANKIT MARTINEZ MD When 06/05/2022 10:20 AM EST Why: Follow-up as scheduled Where: [address] [place] [address]- The Following Activity and Diet Have Been Ordered for You Discharge Activity - Ordered -- Resume your pre-hospitalization activity, 05/28/22 11:51:00 EST Discharge Diet - Ordered -- No changes were made to your diet during your hospital stay. Please resume your pre hospitalization diet on discharge., 05/28/22 11:51:00 EST The Following Equipment Has Been Ordered for You No qualifying data available. The Following Treatments Have Been Ordered for You Discharge Labs No qualifying data available. Discharge Radiology No qualifying data available. Other Therapies No qualifying data available. Post Acute Orders No qualifying data available. Someone Will Contact You Regarding These Home Health Referrals No home referrals have been ordered for you. No one will call you. Allergies Lyrica (Belching, Chest pain, SOB - Shortness of breath) gabapentin (cough, Anxiety, SOB - Shortness of breath) doxycycline ( feels spacey , Mental status) levoFLOXacin (Nausea, Dizziness, pressure in head) Bactrim (SOB - Shortness of breath) Cymbalta (Panic attack) Elavil (Chest pain, GI Upset) Incruse Ellipta (abdominal cramping, blurry vision, Headache, Tremor, Palpitations) Tudorza Pressair (abdominal cramping, blurry vision, Headache, Tremor, Palpitations) Zoloft (GI upset, Chest pain) ipratropium (abdominal cramping, blurry vision, Headache, Tremor) methylPREDNISolone (Myalgia) penicillin (as a child passes out in MD office after PCN injection) Medications Please ask your primary doctor or pharmacist before taking any other medication not listed, including over the counter drugs, herbal medications, vitamins and or supplements as they may interact with your home medications. What How Much When Instructions Last Dose New predniSONE (prednisone 10mg tab (TAPER)) Taper 66-88-36-30-20-10 x 1 day by mouth Once a day (in the morning) Duration: 6 Days Pickup at [facility] #[id number] Unchanged acetaminophen-hydrocodone ([place] 325- 5 mg oral tablet) 1 tab(s) by mouth Every 6 hours as needed for as needed for pain Unchanged albuterol (albuterol MDI (90 mcg/ inh) CFC free inhalation aerosol) 2 puff(s) by inhalation Every 4 hours as needed for as needed for wheezing Unchanged albuterol (albuterol 2.5 mg/ 3 mL (0.083%) inhalation solution) 3 Milliliter by inhalation Every 4 hours as needed for Wheezing Duration: 21 Days Unchanged albuterol-ipratropium (Combivent Respimat CFC free 20 mcg-100 mcg/ inh inhalation aerosol) 1 puff(s) by inhalation Every 6 hours as needed for Shortness of breath or wheezing Unchanged cholecalciferol (cholecalciferol 50 mcg (2000 intl units) oral capsule) 1 cap by mouth Once a day Unchanged famotidine (famotidine 20 mg oral tablet) 1 tab(s) by mouth Once a day as needed for Heartburn Unchanged fluticasone nasal (Flonase 50 mcg/ inh nasal spray) 1 spray(s) each nostril Two (2) times a day as needed for Allergy symptoms Unchanged formoterol-mometasone (Dulera 200 mcg-5 mcg/ inh Metered Dose Inhaler) 2 puff(s) by inhalation Two (2) times a day Unchanged hydrOXYzine (hydrOXYzine hydrochloride 25 mg oral tablet) 1 tab(s) by mouth Daily at bedtime Unchanged loratadine (Claritin 10 mg oral tablet) 1 tab(s) by mouth Once a day as needed for Allergy symptoms Unchanged metoprolol (Metoprolol Succinate ER 25 mg oral TABLET extended release) 1 tab(s) by mouth Once a day Do not crush or chew (controlled release) Unchanged polyethylene glycol 3350 (MiraLax oral powder for reconstitution) 17 gram(s) by mouth Once a day as needed for Constipation dissolve in water before taking Unchanged rosuvastatin (Crestor 10 mg oral tablet) 1 tab(s) by mouth Daily at bedtime Unchanged tiZANidine (Zanaflex 4 mg oral tablet) 1 tab(s) by mouth Daily at bedtime as needed for Muscle spasm Pharmacy Information [id number]: [address]am [address] [place], [place] [id number] [phone] Please take this list to your next doctor s visit. Bring all medications you take, including over the counter medications, herbals and other supplements with you to your doctor s visit. Patients and families are reminded to discard old lists and to update any records with all medication providers or retail pharmacies. Education Materials Chronic Obstructive Pulmonary Disease Exacerbation Chronic obstructive pulmonary disease (COPD) is a long-term (chronic) lung problem. In COPD, the flow of air from the lungs is limited. COPD exacerbations are times that breathing gets worse and you need more than your normal treatment. Without treatment, they can be life threatening. If they happen often, your lungs can become more damaged. If your COPD gets worse, your doctor may treat you with: Medicines. Oxygen. Different ways to clear your airway, such as using a mask. Follow these instructions at home: Medicines Take gotj-qls-exfmijy and prescription medicines only as told by your doctor. If you take an antibiotic or steroid medicine, do not stop taking the medicine even if you start to feel better. Keep up with shots (vaccinations) as told by your doctor. Be sure to get a yearly (annual) flu shot. Lifestyle Do not smoke. If you need help quitting, ask your doctor. Eat healthy foods. Exercise regularly. Get plenty of sleep. Avoid tobacco smoke and other things that can bother your lungs. Wash your hands often with soap and water. This will help keep you from getting an infection. If you cannot use soap and water, use hand supervisor photoengraving. During flu season, avoid areas that are crowded with people. General instructions Drink enough fluid to keep your pee (urine) clear or pale yellow. Do not do this if your doctor has told you not to. Use a cool mist machine (vaporizer). If you use oxygen or a machine that turns medicine into a mist (nebulizer), continue to use it as told. Follow all instructions for rehabilitation. These are steps you can take to make your body work better. Keep all follow-up visits as told by your doctor. This is important. Contact a doctor if: Your COPD symptoms get worse than normal. Get help right away if: You are short of breath and it gets worse. You have trouble talking. You have chest pain. You cough up blood. You have a fever. You keep throwing up (vomiting). You feel weak or you pass out (faint). You feel confused. You are not able to sleep because of your symptoms. You are not able to do daily activities. Summary COPD exacerbations are times that breathing gets worse and you need more treatment than normal. COPD exacerbations can be very serious and may cause your lungs to become more damaged. Do not smoke. If you need help quitting, ask your doctor. Stay up-to-date on your shots. Get a flu shot every year. This information is not intended to replace advice given to you by your health care provider. Make sure you discuss any questions you have with your health care provider. Document Released: 06/02/2012 Document Revised: 05/27/2018 Document Reviewed: 07/19/2017 [employer] Patient Education 2020 SwitchNote. Additional Information VACCINATE! IT SAVES LIVES! Members of the community who have not yet received the COVID-19 vaccine and would like to receive it can visit one of [facility] vaccine clinics. There are many vaccine clinic locations within the [facility]. For locations and available times, please visit [email or web address] It is important to note that some COVID mobile vaccine clinics are held outdoors and may be canceled in rainy or stormy conditions. To learn more about pediatric vaccinations (ages 5-11), we invite you to visit the [facility] webpage. [email or web address] To learn more about the COVID-19 vaccine, we invite you to visit the [facility] website for a list of frequently asked questions. [email or web address] [facility] Patient Portal Access Instructions: Stay connected with your healthcare team and access your personal medical information anytime with the [facility] Patient Portal.If you would like a full copy of your medical records, please contact the [facility] Medical Records Department, Wednesday through Wednesday between 8a.m. and 4:30p.m. Please follow the directions below to access the portal: 1.Access the email account you provided upon registration to the hospital.2.Look for an invitation email from [facility].3.Open the email and access the invitation link: Accept Invitation to [facility].Fill in the required mcconnell to create your account. Sign into [email or web address] with your username and password that you created in the above steps to stay up to date. You can then view a summary of results, a summary of your visits, and the ability to download your summaries to your computer or send the information securely to a physician. Remember that your healthcare information is confidential, so carefully consider who you will allow to register on the [facility] Patient Portal for access to your information. You can also access the [facility] Patient Portal on the [employer] santos. Simply click on Health Records under Health Data and then click on the [facility] logo. HOW TO SAFELY DISPOSE OF PRESCRIPTION MEDICATIONS Please use one of the following methods to safely dispose of your unused medications. 1.Use a drug disposal kit: the drug disposal pouch allows you to safely discard your old and unused drugs. Ask your nurse to give you one when you are discharged.2.Visit a local take-back location: Many local pharmacies and police departments have programs that collect old and unwanted prescription drugs. Call your local pharmacy or go to http://[employer] [place].[employer]/8D3Sd8s to find one close to you.3.Make use of household items: Use cat litter or old coffee grounds to dispose medications if other options are not available. Mix your drugs with these household products, seal them in an airtight container and throw it into the garbage. Call [facility]: [phone] to be sure your drugs can be disposed of in this way. Some medicines may require a different approach.4.Never flush your medications down the toilet. IF YOU HAVE BEEN PRESCRIBED AN OPIOID FOR PAIN If you have been prescribed an opioid (such as hydrocodone, oxycodone or morphine), it is critical to understand the possible side effects and risks of opioid pain medications. Even when taken as directed, opioids can have several side effects including: Tolerance, meaning you might need to take more of a medication for the same pain relief. Nausea, vomiting and/or constipation. Sleepiness, dizziness, dry mouth, confusion, depression or itching. Physical dependence, meaning you have withdrawal symptoms when a medication is stopped, can develop within a few days. KNOW YOUR RESPONSIBILITIES It is important to know exactly how much and how often to take the opioid pain medications you are prescribed. Never take opioids in higher amounts or more often than prescribed. Do not combine opioids with alcohol or other drugs that cause drowsiness, such as benzodiazepines, also known as benzos, including diazepam and alprazolam, muscle relaxants or sleep aids. Never sell or share prescription opioids. This is illegal. Store opioids in a secure place and out of reach of others (including children, family, friends and visitors). The last page of this document has been signed and retained as a CHART COPY. Signatures Patient Education Materials Chronic Obstructive Pulmonary Disease Exacerbation, Nzqg-ft-Defa Medication Leaflets My discharge plan and instructions have been reviewed and explained to me and I,JESSICA GLORIA understand my current condition and have read and understand these discharge instructions. I have received a written copy of the plan/instructions. If I have questions, I am aware that I should contact my doctor. Patient/Preschool Director Signature: Date/Time: Relationship to Patient: Witness Name/Signature: Date/Time: [facility] 05-27-2022 Note Smoking Cessation Consult Entered On: 05/27/2022 18:56 EST Performed On: 05/27/2022 18:52 EST by ANTONETTE LYN Cessation Attempt to Quit Smoking in Past : No Methods Used To Quit Smoking : None Readiness to Quit Smoking : Contemplating quitting Practical Counseling : Recognize danger situations, Provide basic information Interventions Willing to Quit Smoking : Counseling provided, Supplementary materials provided ANTONETTE LYN RT - 05/27/2022 18:52 EST Social History Social History (As Of: 05/27/2022 18:56:58 EST) Tobacco: Nicotine Use: 10 or more cigarettes (1/2 pack or more)/day in last 30 days. Type: Cigarettes. Smoking Cessation Information Refused smoking cessation information. (Last Updated: 11/10/2021 14:54:03 EDT by Yana Reyes RN) Nicotine Use: 10 or more cigarettes (1/2 pack or more)/day in last 30 days. Type: Cigarettes. (Last Updated: 05/26/2022 11:53:25 EST by Yana Reyes RN) Alcohol: Denies Alcohol Use Use: Never. (Last Updated: 11/10/2021 14:54:18 EDT by Yana Reyes RN) Substance Abuse: Denies Substance Abuse Use: Never. (Last Updated: 11/10/2021 14:54:22 EDT by Yana Reyes RN) Nutrition/Health: Type of diet: Regular. Appetite Good. (Last Updated: 11/10/2021 14:54:39 EDT by Yana Reyes RN) Eating Difficulties Swallowing. (Last Updated: 05/26/2022 11:53:44 EST by Yana Reyes RN) Home/Environment: Domestic Concerns: None. Living situation: Home/Independent. Lives In: 1st floor bedroom, 1st floor bathroom. Current Home Treatments Nebulizer treatments, Oxygen therapy. Marital Status: . (Last Updated: 11/10/2021 14:55:41 EDT by Yana Reyes RN) Are You Ready To Quit Smoking I Want To Quit For Personal Reasons : Completely Agree Specific Plan/Quit Smoking : Completely Agree New Ways Help Stop Smoking : Completely Agree Worry A Lot About Smoking : Completely Agree Tired of Being A Prisoner To Cigarettes : Completely Agree After Awake/Smoke First Cigarette : Within 5 minutes Difficult Not To Smoke When Forbidden : Yes Cigarette Most Satisfying/Day : All others Cigarettes/Day : 11-20 Cigarettes Smoke More In A.M./Rest Of Day : No Smoke When Sick/Stay In Bed : No ANTONETTE LYN RT - 05/27/2022 18:52 EST Education Smoking Education Grid Topic : Advice given to stop smoking Risks/Benefits of smoking cessation Smoking cessation programs Individuals Taught : Patient Patient Patient Barriers to Learning : None evident None evident None evident Learning Readiness : Willing to learn Willing to learn Willing to learn Teaching Method : Explanation, Printed materials Explanation, Printed materials Explanation, Printed materials Teaching Evaluation : Verbalizes/Nonverbally indicates understanding Verbalizes/Nonverbally indicates understanding Verbalizes/Nonverbally indicates understanding Education Referral Made To : Respiratory Therapy Respiratory Therapy ANTONETTE LYN RT - 05/27/2022 18:52 EST ANTONETTE LYN RT - 05/27/2022 18:52 EST ANTONETTE LYN RT - 05/27/2022 18:52 EST Discharge Planning-Smoking Cessation Which Following Interventions : Smoking Cessation Counseling Discharge Smoking Cessation Plan : Yes Referral Made Local Smoking Hotline : Yes Time Spent wih Patient-SC : Between 3-10 minutes ANTONETTE LYN RT - 05/27/2022 18:52 EST [facility] 05-27-2022 Note Date of Service 05/27/2022 Subjective Overnight patient remained afebrile and hemodynamically stable. Maintained on O2 via nasal cannula at 2 L. Patient was attempted on room air with oxygen saturation of 84%. White blood cell count 12,000. BMP reviewed and unremarkable. Patient states she feels a little bit better today. Still having cough and sputum production. No more than usual. Denies any chest pain or palpitations. No fever or chills. Objective Vitals and Measurements T: 36.4 C (Oral) TMIN: 36.4 C (Oral) TMAX: 36.6 C (Oral) HR: 88 RR: 18 BP: 111/68 SpO2: 100% Intake and Output 7AM Yesterday to 7AM Today Intake and Output (Last 24 hours) Intake Output Urine Voided 300.00 Urine Count 3.00 Total Summary Total Intake 0.00 Total Output 300.00 Fluid Balance -300.00 Physical Exam GEN: Appears chronically and acutely ill, frail CHEST: Normal S1 and S2. Rhythm is regular. expiratory wheezing bilateral upper lobes ABD: Positive bowel sounds x 4 quads. Soft, nondistended, nontender. EXT: No significant deformity or joint abnormality. No edema. Peripheral pulses intact. NEURO: Sensation grossly intact SKIN: Skin color normal PSYCH: The mental examination revealed the patient was alert and oriented x 4 Weight Dosing Weight: 47 kg (05/26/22) Dosing Weight: 47 kg (05/26/22) Medications Medications (18) Active Scheduled: (6) albuterol - ipratropium 2.5 mg-0.5 mg/3 mL Inhal Larissa UD 3 mL, Inhalation, q4hRT atorvastatin 10 mg tablet 20 mg 2 tab(s), Oral, qHS budesonide 0.5 mg/2 mL Susp UD 0.5 mg 2 mL, Inhalation, BIDRT guaifenesin 600 mg ER 600 mg 1 tab(s), Oral, BID methylPREDNISolone succ 40mg (40 mg/1mL) after dilution 60 mg 1.5 mL, IV Push, q8h metoprolol succinate 50 mg ER tablet 25 mg 0.5 tab(s), Oral, qDay Continuous: (0) PRN: (12) acetaminophen 325 mg Tablet 650 mg 2 tab(s), Oral, q4h acetaminophen 325 mg Tablet 650 mg 2 tab(s), Oral, q4h acetaminophen-HYDROcodone 325-5 mg tablet 1 tab(s), Oral, q6hr albuterol - ipratropium 2.5 mg-0.5 mg/3 mL Inhal Larissa UD 3 mL, Inhalation, q4hRT benzonatate 100 mg Capsule 100 mg 1 cap(s), Oral, TID calcium carbonate 500 mg Chewable 500 mg 1 tab(s), Chewed, TID famotidine 20 mg tablet 20 mg 1 tab(s), Oral, qDay fluticasone nasal 0.05 mg/inh [place] 50 mcg 1 spray(s), Nostril, each, BID melatonin 3 mg tablet 6 mg 2 tab(s), Oral, qHS ondansetron 2 mg/ 1 mL 2 mL INJ 4 mg 2 mL, IV Push, q4h polyethylene glycol 3350 - UD packet 17 gram(s) 15 mL, Oral, qDay tiZANidine 4 mg tablet 4 mg 1 tab(s), Oral, qHS Lab Results 05/27 05:30 WBC: 12.3 H Hgb: 12.0 Hct: 34.9 L Platelet: 203 Neutrophil %: 94.4 H Glucose Level: 136 H Sodium Level: 134 L Potassium Level: 4.7 BUN: 19 H Creatinine Lvl (s): 0.67 05/26 05:35 WBC: 11.9 H Hgb: 13.3 Hct: 39.6 Platelet: 215 Neutrophil %: 83.4 H Glucose Level: 110 Sodium Level: 136 Potassium Level: 3.8 BUN: 9 Creatinine Lvl (s): 0.62 Assessment/Plan 1. COPD exacerbation 2. Pulmonary nodules 3. HTN (hypertension) 4. Chronic back pain 5. Dysphagia Orders: Admit to Inpatient Oxygen Administration COPD exacerbation Solu-Medrol 60 mg IV every 8 hours, DuoNebs every 4 hours, Acapella device, Mucinex 600 mg p.o. twice daily. Continue supplemental oxygen to keep oxygen saturations 90% or greater. Pulmonary nodules patient is following with pulmonology and has an appointment on 04/03/2022 for follow-up. HTN- SBP goal 140 or less. Continue home antihypertensives. Chronic back pain- Continue home medications Dysphagia Patient is following with gastroenterology and has a gastric emptying study ordered. Start a soft diet. DVT prophylaxis: SCDs Labs, diagnostics, and progress notes reviewed as noted in HPI Code Status:Full Code Plan of care discussed with patient. All questions answered. Patient verbalizes understanding is agreeable to plan of care. This dictation was performed using voice recognition software and may include grammatical and/or spelling errors. Digitally Signed by LAKISHA ROBERTSON on 05/27/2022 02:58 PM [facility] 1. COPD exacerbation 2. Pulmonary nodules 3. HTN (hypertension) 4. Chronic back pain 5. Dysphagia COPD exacerbation Solu-Medrol 60 mg IV every 8 hours, DuoNebs every 4 hours, Acapella device, Mucinex 600 mg p.o. twice daily. Continue supplemental oxygen to keep oxygen saturations 90% or greater. We will check for atypicals. Hold off on starting antibiotics at this time. Pulmonary nodules patient is following with pulmonology and has an appointment on 04/03/2022 for follow-up. HTN- SBP goal 140 or less. Continue home antihypertensives. Chronic back pain- Continue home medications Dysphagia Patient is following with gastroenterology and has a gastric emptying study ordered. Start a soft diet. DVT prophylaxis: SCDs Labs, diagnostics, and progress notes reviewed as noted in HPI Code Status:Full Code Plan of care discussed with patient. All questions answered. Patient verbalizes understanding is agreeable to plan of care. This dictation was performed using voice recognition software and may include grammatical and/or spelling errors. [facility] 11-29-2022 Note Date of Service 05/26/2022 Chief Complaint sob/chest pain History of Present Illness 66-year-old female with past medical history significant for COPD, GERD, kidney stones, REYNA, depression, dysphagia, weight loss, chronic constipation, pulmonary nodules. Patient presented to [facility] emergency department with increasing dyspnea. Patient normally wears supplemental oxygen at home. She has required more oxygen. In the emergency department patient was afebrile, tachycardic, tachypneic hemodynamically stable. O2 via nasal cannula at 4 L. Whiteblood cell count 11,000. D-dimer 406. BMP within normal limits. X-ray chest shows widespread heterogeneous bilateral lung infiltrates that may represent pulmonary edema or atypical pneumonia. CTA chest is negative for PE. This did show bilateral multiple spiculated nodular opacities that are new compared to prior exam from 2019. Suspicious for metastatic disease or malignancy given their morphologic appearance. Recommend PET CT. Mild bilateral bronchial wall thickening and mucous plugging with associated tree-in-bud opacities likely secondary to acute process such as bronchiolitis. Chronic right middle lobe bronchiectasis and consolidation with associated significant volume loss. Mild mediastinal adenopathy, likely reactive. Patient's previous CT chest done 01/16 showed nodules in bilateral lungs. Stable bronchiectasis and scarring in the right middle lobe with volume loss. Stable cavitary lesion in the peripheral lateral aspect of the right upper lobe. Biopsy was done of a left upper lobe nodule that was negative for malignancy. Lung parenchymal tissue with extensive fibrosis and necrotizing and nonnecrotizing chronic granulomatous inflammation. Review of Systems See HPI for specific ROS. All other systems reviewed and negative. Physical Exam Vitals and Measurements T: 36.8 C (Oral) TMIN: 36.8 C (Oral) TMAX: 99.6 C (Temporal Artery) HR: 68 RR: 18 BP: 115/83 SpO2: 97% HT: 157.5 cm WT: 47 kg BMI: 18.95 Weight Dosing Weight: 47 kg (05/26/22) Dosing Weight: 47 kg (05/26/22) GEN: Appears chronically and acutely ill, frail EYES: No conjunctival erythema, drainage. EOMI EARS: Hearing grossly intact. NOSE: No nasal discharge. THROAT: Oral cavity and pharynx pink and moist. CHEST: Normal S1 and S2. Rhythm is regular. Scattered rhonchi, expiratory wheezing bilateral upper lobes ABD: Positive bowel sounds x 4 quads. Soft, nondistended, nontender. EXT: No significant deformity or joint abnormality. No edema. Peripheral pulses intact. NEURO: Sensation grossly intact SKIN: Skin color normal PSYCH: The mental examination revealed the patient was alert and oriented x 4 Lab Results 05/26 05:35 WBC: 11.9 H Hgb: 13.3 Hct: 39.6 Platelet: 215 Neutrophil %: 83.4 H Glucose Level: 110 Sodium Level: 136 Potassium Level: 3.8 BUN: 9 Creatinine Lvl (s): 0.62 Imaging Results and Diagnostics CT Angiography Chest w/ Contrast Result Date: May 26, 2022 Verified By: PARVEEN MENA MD CLINICAL STATEMENT: IMPRESSION: No evidence of a pulmonary embolism. Bilateral multiple spiculated nodular opacities are new compared to priorexam from 2019. These are suspicious for metastatic disease or malignancygiven there morphologic appearance. Further evaluation with PET CT isrecommended. Mild bilateral bronchial wall thickening and mucous plugging with puozyrsrzeumkb-gx-shk opacities likely secondary to an acute process such asbronchiolitis. Chronic right middle lobe bronchiectases and consolidation with associatedsignificant volume loss. Mild mediastinal adenopathy, likely reactive. I have personally reviewed the images of this examination, and agree with theresident's findings and interpretation. XR Chest 1 View Result Date: May 26, 2022 Verified By: PARVEEN MENA MD CLINICAL STATEMENT: IMPRESSION: Widespread heterogeneous bilateral lung infiltrates may be pulmonary edema oratypical pneumonia. EKG EC05/26/22: Sinus tachycardia...rate> 99 Ventricular trigeminy...trigeminy string>6 w/ V complexes Probable left atrial enlargement...P >50mS, <-0.10mV V1 Left axis deviation...QRS axis (-30,-90) Compared to ECG at 11/11/2021 08:01:21 BORDERLINE ECG Electronic Signature: STANLEY HILL DO 05/26/2022 05:26:39 Assessment/Plan 1. COPD exacerbation 2. Pulmonary nodules 3. HTN (hypertension) 4. Chronic back pain 5. Dysphagia COPD exacerbation Solu-Medrol 60 mg IV every 8 hours, DuoNebs every 4 hours, Acapella device, Mucinex 600 mg p.o. twice daily. Continue supplemental oxygen to keep oxygen saturations 90% or greater. We will check for atypicals. Hold off on starting antibiotics at this time. Pulmonary nodules patient is following with pulmonology and has an appointment on 04/03/2022 for follow-up. HTN- SBP goal 140 or less. Continue home antihypertensives. Chronic back pain- Continue home medications Dysphagia Patient is following with gastroenterology and has a gastric emptying study ordered. Start a soft diet. DVT prophylaxis: SCDs Labs, diagnostics, and progress notes reviewed as noted in HPI Code Status:Full Code Plan of care discussed with patient. All questions answered. Patient verbalizes understanding is agreeable to plan of care. This dictation was performed using voice recognition software and may include grammatical and/or spelling errors. Problem List/Past Medical History Ongoing Advanced COPD Anxiety Back pain CAP (community acquired pneumonia) Chronic abdominal pain Chronic back pain Chronic respiratory failure COPD exacerbation COVID-19 Depression Genuine stress incontinence, female GERD (gastroesophageal reflux disease) History of urinary urgency HTN (hypertension) Hypertension Hypomagnesemia Hyponatremia Kidney stone Nocturnal hypoxemia Palpitations Historical No qualifying data Procedure/Surgical History Cholecystectomy Tubal ligation Bladder Medications Home Medications (14) Active albuterol MDI (90 mcg/inh) CFC free inhalation aerosol 2 puff(s), PRN, Inhalation, q4h albuterol 2.5 mg/3 mL (0.083%) inhalation solution 2.5 mg = 3 mL, PRN, Inhalation, q4h cholecalciferol 50 mcg (2000 intl units) oral capsule 50 mcg = 1 cap(s), Oral, qDay Claritin 10 mg oral tablet 10 mg = 1 tab(s), PRN, Oral, qDay Combivent Respimat CFC free 20 mcg-100 mcg/inh inhalation aerosol 1 puff(s), PRN, Inhalation, q6h Crestor 10 mg oral tablet 10 mg = 1 tab(s), Oral, qHS Dulera 200 mcg-5 mcg/inh Metered Dose Inhaler 2 puff(s), Inhalation, BID famotidine 20 mg oral tablet 20 mg = 1 tab(s), PRN, Oral, qDay Flonase 50 mcg/inh nasal spray 1 spray(s), PRN, Nostril, each, BID hydrOXYzine hydrochloride 25 mg oral tablet 25 mg = 1 tab(s), Oral, qHS Metoprolol Succinate ER 25 mg oral TABLET extended release 25 mg = 1 tab(s), Oral, qDay MiraLax oral powder for reconstitution 17 gram(s), PRN, Oral, qDay Engelhard 325- 5 mg oral tablet 1 tab(s), PRN, Oral, q6hr Zanaflex 4 mg oral tablet 4 mg = 1 tab(s), PRN, Oral, qHS Allergies Lyrica (Belching, Chest pain, SOB - Shortness of breath) gabapentin (cough, Anxiety, SOB - Shortness of breath) doxycycline ( feels spacey , Mental status) levoFLOXacin (Nausea, Dizziness, pressure in head) Bactrim (SOB - Shortness of breath) Cymbalta (Panic attack) Elavil (Chest pain, GI Upset) Incruse Ellipta (abdominal cramping, blurry vision, Headache, Tremor, Palpitations) Tudorza Pressair (abdominal cramping, blurry vision, Headache, Tremor, Palpitations) Zoloft (GI upset, Chest pain) ipratropium (abdominal cramping, blurry vision, Headache, Tremor) methylPREDNISolone (Myalgia) penicillin (as a child passes out in MD office after PCN injection) Social History Smoking Status - 03/25/2018 Current every day smoker Alcohol - Denies Alcohol Use, 06/29/2017 Use: Never., 11/10/2021 Home/Environment Domestic Concerns: None. Living situation: Home/Independent. Lives In: 1st floor bedroom, 1st floorbathroom. Current Home Treatments Nebulizer treatments, Oxygen therapy. Marital Status: ., 11/10/2021 Nutrition/Health Eating Difficulties Swallowing., 05/26/2022 Type of diet: Regular. Appetite Good., 11/10/2021 Substance Abuse - Denies Substance Abuse, 06/29/2017 Use: Never., 11/10/2021 Tobacco Nicotine Use: 10 or more cigarettes (1/2 pack or more)/day in last 30 days. Type: Cigarettes., 05/26/2022 Nicotine Use: 10 or more cigarettes (1/2 pack or more)/day in last 30 days. Type: Cigarettes. Smoking Cessation Information Refused smoking cessation information., 11/10/2021 Family History COPD - Chronic obstructive pulmonary disease: Sister. DVT - Deep vein thrombosis: Father. Heart attack: Father. Immunizations SARS-CoV-2 (COVID-19) mRNA-1273 vaccine: 0.5 unknown unit (02/14/21) SARS-CoV-2 (COVID-19) mRNA-1273 vaccine: 0.5 unknown unit (01/17/21) Code Status Code Status - Ordered -- 05/26/22 9:46:00 EST, Full Code, Constant Order Digitally Signed by LAKISHA ROBERTSON on 05/26/2022 01:01 PM [facility]11-29-2022 Note ORIGINAL EXAMINATION: CTA OF THE CHEST 05/26/2022 7:42 am TECHNIQUE: CTA of the chest was performed after the administration of intravenous contrast. Multiplanar reformatted images are provided for review. MIP images are provided for review. Automated exposure control, iterative reconstruction, and/or weight based adjustment of the mA/kV was utilized to reduce the radiation dose to as low as reasonably achievable. COMPARISON: Multiple prior chest x-rays, most recent 05/26/2022. CT chest on 11/24/2018 HISTORY: ORDERING SYSTEM PROVIDED HISTORY: Reason for Exam: dyspnea FINDINGS: Pulmonary Arteries: Pulmonary arteries are adequately opacified for evaluation. No evidence of intraluminal filling defect to suggest pulmonary embolism. Main pulmonary artery is normal in caliber. Mediastinum: The heart is normal in size. No pericardial effusion. Mild atherosclerosis of the aorta which is nonaneurysmal. There is mild rightward deviation of the mediastinum. The thyroid gland is within normal limits. Mild mediastinal lymphadenopathy with a subcarinal lymph node measuring 1.5 cm. Calcified mediastinal lymph node in the subcarinal region likely remote granulomatous disease. Representing there is soft tissue prominence of the right hilum without a focal enlarged hilar lymph node. Lungs/pleura: The central airways are patent. Mild bilateral bronchial wall thickening, right greater than left with multiple areas of mucous plugging. Chronic Bronchiectases and mild consolidation is noted in the right middle lobe. A spiculated and centrally lucent right upper lobe nodule measures 1.7 cm. There also two spiculated nodular densities, measuring 0.9 cm in the left upper lobe. An additional spiculated nodular density in the left lower lobe measures 1.4 x 2.1 cm (transverse X craniocaudal). Bilateral mild tree-in-bud opacities are noted. There is biapical scarring. Scattered areas of subpleural scarring are noted throughout the bilateral lungs. No pleural effusion. Upper Abdomen: Limited images of the upper abdomen demonstrate mild left adrenal gland hyperplasia. Soft Tissues/Bones: No acute bone or soft tissue abnormality. IMPRESSION: No evidence of a pulmonary embolism. Bilateral multiple spiculated nodular opacities are new compared to prior exam from 2019. These are suspicious for metastatic disease or malignancy given there morphologic appearance. Further evaluation with PET CT is recommended. Mild bilateral bronchial wall thickening and mucous plugging with associated tree-in-bud opacities likely secondary to an acute process such as bronchiolitis. Chronic right middle lobe bronchiectases and consolidation with associated significant volume loss. Mild mediastinal adenopathy, likely reactive. I have personally reviewed the images of this examination, and agree with the resident's findings and interpretation. Interpreted by: Parveen Mena MD Preliminary Report By: Sherry Marshall Electronically signed By Parveen Mena MD Dictated Date: 05/26/2022 7:43:11 AM Prelim Date: 05/26/2022 8:02:29 AM Sign Date: 05/26/2022 8:07:03 AM Ordering Provider: [facility]11-29-2022 Note ORIGINAL EXAMINATION: CTA OF THE CHEST 05/26/2022 7:42 am TECHNIQUE: CTA of the chest was performed after the administration of intravenous contrast. Multiplanar reformatted images are provided for review. MIP images are provided for review. Automated exposure control, iterative reconstruction, and/or weight based adjustment of the mA/kV was utilized to reduce the radiation dose to as low as reasonably achievable. COMPARISON: Multiple prior chest x-rays, most recent 05/26/2022. CT chest on 11/24/2018 HISTORY: ORDERING SYSTEM PROVIDED HISTORY: Reason for Exam: dyspnea FINDINGS: Pulmonary Arteries: Pulmonary arteries are adequately opacified for evaluation. No evidence of intraluminal filling defect to suggest pulmonary embolism. Main pulmonary artery is normal in caliber. Mediastinum: The heart is normal in size. No pericardial effusion. Mild atherosclerosis of the aorta which is nonaneurysmal. There is mild rightward deviation of the mediastinum. The thyroid gland is within normal limits. Mild mediastinal lymphadenopathy with a subcarinal lymph node measuring 1.5 cm. Calcified mediastinal lymph node in the subcarinal region likely remote granulomatous disease. Representing there is soft tissue prominence of the right hilum without a focal enlarged hilar lymph node. Lungs/pleura: The central airways are patent. Mild bilateral bronchial wall thickening, right greater than left with multiple areas of mucous plugging. Chronic Bronchiectases and mild consolidation is noted in the right middle lobe. A spiculated and centrally lucent right upper lobe nodule measures 1.7 cm. There also two spiculated nodular densities, measuring 0.9 cm in the left upper lobe. An additional spiculated nodular density in the left lower lobe measures 1.4 x 2.1 cm (transverse X craniocaudal). Bilateral mild tree-in-bud opacities are noted. There is biapical scarring. Scattered areas of subpleural scarring are noted throughout the bilateral lungs. No pleural effusion. Upper Abdomen: Limited images of the upper abdomen demonstrate mild left adrenal gland hyperplasia. Soft Tissues/Bones: No acute bone or soft tissue abnormality. IMPRESSION: No evidence of a pulmonary embolism. Bilateral multiple spiculated nodular opacities are new compared to prior exam from 2019. These are suspicious for metastatic disease or malignancy given there morphologic appearance. Further evaluation with PET CT is recommended. Mild bilateral bronchial wall thickening and mucous plugging with associated tree-in-bud opacities likely secondary to an acute process such as bronchiolitis. Chronic right middle lobe bronchiectases and consolidation with associated significant volume loss. Mild mediastinal adenopathy, likely reactive. I have personally reviewed the images of this examination, and agree with the resident's findings and interpretation. Interpreted by: Parveen Mena MD Preliminary Report By: Sherry Marshall Electronically signed By Parveen Mena MD Dictated Date: 05/26/2022 7:43:11 AM Prelim Date: 05/26/2022 8:02:29 AM Sign Date: 05/26/2022 8:07:03 AM Ordering Provider: [facility]11-29-2022 Note ORIGINAL EXAMINATION: ONE XRAY VIEW OF THE CHEST 05/26/2022 7:18 am COMPARISON: Chest x-ray on 03/20/2022 HISTORY: ORDERING SYSTEM PROVIDED HISTORY: Reason for Exam: chest pain FINDINGS: The heart size is normal. There is diffuse bilateral interstitial infiltrate with patchy airspace disease in the left upper lung zone and right mid lung zone. This is new compared with prior exam. No pleural fluid is evident. There is no pneumothorax. No acute skeletal abnormality is detected. IMPRESSION: Widespread heterogeneous bilateral lung infiltrates may be pulmonary edema or atypical pneumonia. Interpreted by: Parveen Mena MD Preliminary Report By: Parveen Mena MD Electronically signed By Parveen Mena MD Dictated Date: 05/26/2022 7:20:49 AM Prelim Date: 05/26/2022 7:22:37 AM Sign Date: 05/26/2022 7:22:37 AM Ordering Provider: [facility]11-29-2022 Note ORIGINAL EXAMINATION: ONE XRAY VIEW OF THE CHEST 05/26/2022 7:18 am COMPARISON: Chest x-ray on 03/20/2022 HISTORY: ORDERING SYSTEM PROVIDED HISTORY: Reason for Exam: chest pain FINDINGS: The heart size is normal. There is diffuse bilateral interstitial infiltrate with patchy airspace disease in the left upper lung zone and right mid lung zone. This is new compared with prior exam. No pleural fluid is evident. There is no pneumothorax. No acute skeletal abnormality is detected. IMPRESSION: Widespread heterogeneous bilateral lung infiltrates may be pulmonary edema or atypical pneumonia. Interpreted by: Parveen Mena MD Preliminary Report By: Parveen Mena MD Electronically signed By Parveen Mena MD Dictated Date: 05/26/2022 7:20:49 AM Prelim Date: 05/26/2022 7:22:37 AM Sign Date: 05/26/2022 7:22:37 AM Ordering Provider: [facility]10-13-2022 History of Present illness Narrative* Deonna Kennedy MA - 04/09/2022 1:48 PM EDT Review of Systems Constitutional: Negative for activity change, chills, fever and unexpected weight change. Gastrointestinal: Negative for bowel retention or incontinence Genitourinary: Negative for difficulty urinating. Negative for bladder retention or incontinence Musculoskeletal: Positive for arthralgias, back pain, gait problem, myalgias and neck pain. Negative for joint swelling and neck stiffness. Neurological: Positive for weakness and numbness. Negative for headaches. Psychiatric/Behavioral: Positive for sleep disturbance. Negative for dysphoric mood and suicidal ideas. The patient is nervous/anxious. * Sherry Florez MD - 04/09/2022 9:47 AM EDT Images from the original note were not included. [facility] Today's Date: 04/09/2022 Last Visit: 02/04/2022 Name: Jessica Gloria : 1955 Purpose: Established Patient Encounter Interval History: Since last encounter, Jessica Villalobos Juani; PMH significant for COPD, smoker, REYNA, generalized abd pain, kidney stones, anxiety; reports that the chronic problem(s) of neck, thoracic and low back pain are Unchanged. Denies new or worsening symptoms. Neck pain had 80% improved for 3 months following the RFA in 10/2021. She also had better ability toturn her head afterwards. Thoracic region only had one week of about 50% improvement since RFA in -07/2021. She had COVID in February and this has delayed her care. She reports that she has had several reactions to Dexamethasone after being given this for injections and ended up in the hospital. She reports her pain worsened after each incidence. She also received this in the hospital and had a similar reaction. Pain Description: Timing: constant Character: Aching and Dull Primary Location: Neck, thoracic and low back Radiation: none The patient denies difficulty with bowel or bladder control. New Problems reported: None Current Status: INTAKE PAIN ASSESSMENT 03/03/2022 03/26/2022 Are you having pain associated with your visit today? No No Pain Scales - - Pain Level - - Pain Location - - Description - - Duration Amount of Time - - Duration Units - - Frequency - - Intervention/Comfort measure - - Comments - - Pain Assessment - - Opioid Medications requiring refills today: Hydrocodone TID-QID Date last filled: 03/11/2022 Quantity filled: 105 How many left: 9 (was in hospital for 3 days, had extra) Time most recent dose taken: 1130 today Other: Zanaflex 2mg, takes 1-2 times per week Compliance: Safety Checklist: Are you taking proper precautions to safe guard your medication? Yes Taking the medications as prescribed? Yes Getting pain medications from another physician? No Obtaining pain medication from another source? No Sharing medications with friends/family? No Quality of life improved as a result of taking these medications? Yes Any side effect with this medication? No Justification for Continued Opioid Care: Adequate analgesia? Yes Aberrant drug seeking behavior? No Adverse reactions? No Medications improve quality of life? Yes Allergies: ALLERGIES Allergen Reactions Bactrim [Sulfametho* Other: See Comments [place] sick, barely could breath. [place] deathly sick . GI upset Penicillins Anaphylaxis As a child passed out in md office after PCN injection. Zoloft [Sertraline * GI Upset GI upset, chest burning, muscle ache Ipratropium Other: See Comments Blurry vision, abdominal cramping, tremor, headache. Tudorza Pressair [A* Other: See Comments Heart palpitations, blurry vision, abdominal cramping, tremor, headache. Aclidinium Other: See Comments Cymbalta [Duloxetin* Intolerance panic Elavil [Amitriptyli* Intolerance GI upset, chest burning Fluticasone-Umeclid* Other: See Comments Gabapentin Intolerance Cough, sob, anxiety, increased drowsiness Incruse Ellipta [Um* Other: See Comments Heart palpitations, blurry vision, abdominal cramping, tremor, headache. Levofloxacin Other: See Comments pressure in head. Feel like she is going to throw up and pass out. Lyrica [Pregabalin] Other: See Comments Chest discomfort,burping,sob Methylprednisone Myalgia Sertraline GI Upset Sulfamethoxazole Other: See Comments Trimethoprim Other: See Comments Doxycycline Mental Status Change Makes her feel spacey . If given abx prefer to use this one out of all with the least amount of side effects. Data Reviewed: Reviewed personally on today's date Relevant Imaging: MRI Spine Report MRI THORACIC SPINE WO IVCON Exam End: 12/30/2021 3:01 PM (Final result) Narrative: * * *Final Report* * * DATE OF EXAM: Dec 30 2021 3:01PM Nancy [id number] - MRI THORACIC SPINE WO IVCON / PROCEDURE REASON: Radiculopathy, thoracic region * * * * Physician Interpretation * * * * EXAMINATION: MRI CERVICAL SPINE WO IVCON, MRI THORACIC SPINE WO IVCON CLINICAL HISTORY: Cervical and thoracic radiculopathy. TECHNIQUE: Routine cervical and thoracic spine MR protocol without gadolinium. MQ: [id number] COMPARISON: None. RESULT: CERVICAL: Counting reference: Craniocervical junction. Anatomic Variants: None. Localizer images: Patchy infiltrates are noted in the upper lobes there appears to be thickening or small amount of fluid in the right major fissure on the dining service worker images but evaluation of the lungs is limited by MRI. Alignment: Accentuation of the normal cervical lordosis likely secondary to accentuated thoracic kyphosis. Craniocervical junction: Alignment at the craniocervical junction is within normal limits. Cord: The cervical spinal cord is within normal limits of signal intensity and morphology. Bone marrow signal/fracture: No evidence of pathologic marrow infiltration. No evidence of prior fracture. Cervical soft tissues: The paraspinal soft tissues are within normal limits. C2-C3: Canal and foramina are patent. C3-C4: Mild asymmetric facet degenerative changes. Canal and foramina remain patent. C4-C5: Canal and foramina are patent. C5-C6: Mild asymmetric facet degenerative changes. Canal and foramina remain patent. C6-C7: Canal and foramina are patent. C7-T1: Canal and foramina are patent. THORACIC: Counting reference: Lumbosacral junction. For the purposes of this report, L4-5 is considered the level of the iliac crest and assume there are 5 lumbar-type vertebrae. Anatomic variant: None. Audio Visual Manager (topogram) images: No additional findings. Alignment: Accentuation of the normal thoracic kyphosis. Mild to moderate disc space narrowing is noted in the midthoracic spine. Cord: The thoracic spinal cord and conus are within normal limits of signal intensity and morphology. Bone marrow signal/fracture: No evidence of pathologic marrow infiltration. No evidence of prior fracture. Thoracic soft tissues: The paraspinal soft tissues are within normal limits. Canal and foramina: Thoracic canal and foramina are patent. Impression: IMPRESSION: Mild cervical and thoracic degenerative disc disease without significant canal or foraminal stenosis. Cervical Anatomic Variant: None. Assume 7 cervical vertebrae with counting from the craniocervical junction. Anatomic Thoracic/Lumbar Variant: None. L4-5 is considered the level of the iliac crest and assume there are 5 lumbar-type vertebrae. Hand Umbrella Tipper: PEEWEE Transcribe Date/Time: Dec 30 2021 3:18P Dictated by : RACHEAL MCKEON MD This examination was interpreted and the report reviewed and electronically signed by: RACHEAL MCKEON MD on Dec 30 2021 3:28PM EST Recent labs: Creatinine Date Value Ref Range Status 04/03/2022 0.52 (L) 0.58 - 0.96 mg/dL Final @lastegfr(gfr)@ No results found for: PCGLUCOSE Pain Procedures: DATE PROCEDURE IMPROVEMENT 11/07/2021 RFA Right C3-4,4-5,5-6 80% x 3 months 08/06/2021 RFA Left T5-6,6-7,7-8 50% x 1 week 07/23/2021 RFA Right T5-6,6-7,7-8 50% x 1 week Compliance: PDMP website checked and validated. All prescriptions have been APPROPRIATELY filled. No suspiciousactivity was identified. By Sherry Florez MD 04/09/2022 Last Drug screen: 01/2022 appropriate 09/2021 appropriate Risk Assessment: ERIKA-7: No flowsheet data found.(0-4) minimal anxiety, (5-9) mild anxiety, (10-14) moderate anxiety, (15-21) severe anxiety PHQ-9: No flowsheet data found.(0-4) minimal depression, (5-9) mild depression, (10-14) moderate depression, (15-19) moderately severe depression, (20-27) severe depression Current Medications, Past Medical History, Past Surgical History, Family History, Social History and Review of Systems: On today's date, noted above, I have confirmed and edited as necessary, the PFSH and ROS obtained by others. Physical Exam: 04/09/22 1351 Pulse: 78 Resp: 16 SpO2: 95% Constitutional: normal weight HEENT: Normal Cephalic, Atraumatic, Non-icteric sclera Eyes: Conjunctiva clear. No discharge from eyes Cardiovascular: Appears well perfused Lymphatic: No visible regional lymphadenopathy Skin: No visible rashes or ecchymosis Psychiatric: Full affect, Alert, Pleasant CERVICAL MUSCULOSKELETAL/NEURO EXAM: Inspection: - Symmetric without atrophy Posture: Kyphotic Gait: Normal Palpation: LEFT RIGHT Cervical Paraspinal Tenderness Negative Negative Levator Scapulae Negative Negative Trapezius Negative Negative Rhomboids Negative Negative (Other) Negative Negative Paraspinal spasm: None Greater Occipital Nerves: no tenderness in overlying tissue Cervical Facet Loading Positive Negative Strength: LEFT RIGHT Deltoid (C5) 5 5 Biceps (C6) 5 5 Triceps (C7) 5 5 Wrist Extensors (C8) 5 5 Abduct. Pollis Brevis (T1) 5 5 Muscle Tone: - Normal and symmetric Spurling: - Negative to the Bilateral side(s) Sensation: - Grossly intact to light touch in the C5-T1 Bilateral upper limb dermatomes. LUMBAR MUSCULOSKELETAL/NEURO EXAM Inspection: - Symmetric without atrophy Palpation: - Lumbar Paraspinal Tenderness: None in the Bilateral lumbar paraspinals - Paraspinal Spasms: None - Facet Loading: Right-negative; Left-negative - Greater Trochanter: None tenderness Bilateral Strength: LEFT RIGHT Iliopsoas (L2) 5 5 Quadriceps (L3) 5 5 Anterior Tibialis (L4): 5 5 Exten Hallucis Longus (L5) 5 5 Gastrocnemius (S1): 5 5 Muscle Tone: - Normal and symmetric Neural Tension Signs: -Straight Leg Exam Negative Bilateral lower limb(s) -Contralateral Straight Leg Raise Negative Bilateral lower limb(s) Sensation: - intact to light touch in the L2-S2 Bilateral lower limb dermatomes Diagnoses: (M47.814) Thoracic spondylosis without myelopathy (primary encounter diagnosis) (M47.812) Cervical spondylosis without myelopathy (M47.817) Lumbosacral spondylosis without myelopathy (Z79.891) senior living current use of opiate analgesic Impression & Plan: 66 year old female with significant past medical history for COPD, smoker, REYNA, generalized abd pain, kidney stones, anxiety, who presents with complaint(s) of diffuse neck midback and low back pain. Cervical and thoracic MRIs show that she has mild multilevel degenerative disc disease with degenerative changes throughout. There is no significant foraminal or canal stenosis appreciated. Examination is consistent with more mechanical facet mediated pain. She has not responded well in the past to medication such as Cymbalta or Effexor. She is now s/p RFA in the Thoracic and Cervical spines, without sustained relief. She may have had flare-up of pain after the RFA when given Dexamethasone. Would proceed without steroids for future RFA's. Jessica Gloria would benefit from the following to decrease pain, improve function and/or work participation, and improve quality of life: Medications: Refill: Requested Prescriptions No prescriptions requested or ordered in this encounter UDS, NAOIC/ORT: Reviewed and consistent, repeat UDS today Functional Sabianism: No changes-continue current regimen Additional Studies: None Referrals: None Additional: Patient reports they are happy with current treatment care plan. At this time will continued the patient's opioids today for 60 days. The patient continues to see benefit and improvement in their quality of life with adequate analgesia and ADLS's maintained. No adverse effects, no aberrant behaviors noted; OARRS reviewed and consistent. Risks of long-term medication use was reviewed and Patient advised the above medications may cause impairment of judgement while driving or operating machinery. Patient instructed on safe storage of medications We will re-evaluate opiate regimen in 60 days, office visit, to determine efficacy of treatment to ensure that we are using the lowest dose for maximum benefit. Depending on response to the above plan, consider: TBD Follow-up: 2 months Attribution: In addition to reviewing the information noted above, some elements copied from my most recent clinical note(s), including the physical exam (completed in entirety today), and the impression and plan sections, have been updated where appropriate. All reflect current medical decision making from today's date. Sherry Florez MD, MBA [facility] Miscellaneous Notes* Telephone Encounter - Patricia Oquendo LPN - 04/08/2022 10:27 AM EDT PATIENT NOTIFIED OF SAME. * Telephone Encounter - Magalys Mckeon APRN.DANIELLA - 04/08/2022 7:57 AM EDT Can you please call the patient and let her know that I reviewed her lab results. Labs were all relatively normal. Creatinine was just slightly low, I would recommend that she stay well-hydrated throughout the day. LDL cholesterol was just mildly elevated. I would recommend watching diet, try to eat lean cuts of meat, increase vegetables, and get some form of exercise. No further testing needed at this time. Please let me know if she has any questions. Thank you. Magalys Mckeon APRN.DANIELLA documented in this [facility]Kn[facility]09-27-2022 History of Present illness Narrative* Ana Montgomery Ma - 03/24/2022 1:12 PM EDT TRANSITION CARE MANAGEMENT (TCM) INITIAL CONTACT [employer] Outreach Provider Action/FYI: Pt sent [employer] message in regards to her recent admission. Requested pt to respond back to office with answers to questions. Pt does follow with Pulmonary, did ask if a f/u was made with them. Initial contact with patient post discharge, spoke to 03/25/22. Wrote message via 4meee on 03/24/22. Patient identified by name and . TRANSITION CARE MANAGEMENT INITIAL OUTREACH DOCUMENTATION: No flowsheet data found. SUMMARY: -Pt discharged from [facility] on 03/23/22. -Admitted for: 1.) Covid 19 2.) CAP (Community acquired pneumonia). 3.) Hyponatremia 4.) Hypomagnesemia 5.) Nausea 6.) Advanced COPD 7.) HTN 8.) GERD 9.) Nocturnal Hypoxemia. Do you have a hospital follow up appointment with your PCP? Appointment on 03/30/22 with Magalys Mckeon CNP virtually. MEDICATIONS: Many patients have questions or concerns about their medications once they are home. Were you prescribed any new medications? Yes Were you told to hold any medications? No Were any of your medications discontinued? Yes Do you have any questions about getting or taking your medications? No Your discharge instructions/After visit Summary (AVS) are important in guiding you through the recovery process. Is there anything I might help you understand? No Do you have all the necessary equipment and supplies at home? Yes Medical records from recent hospitalization: Care Everywhere documented in [facility]09-[facility]22 History of Present illness Narrative* Domitila Lara PA-C - 03/03/2022 1:05 PM EDT CHIEF COMPLAINT: Patient presents with: Recheck: Dysphagia, choking, chest pain, Nausea EGD/Colon 01/20/22 HPI Jessica Gloria is a 66 year old female here today for Recheck (Dysphagia, choking, chest pain, Nausea EGD/Colon 01/20/22 ) PMHx of GERD, COPD, kidney stones, osteopenia, REYNA, depression is here. Patient tells me that she is feeling about the same today. Still having a lot of epigastric pains after eating, bloating, nausea. Feels like food is sticking in her chest after eating. Appetite is okay. Weight is stable since November. Intermittent constipation, drinking coffee in the morning with some relief. No rectal bleeding. EGD 01/20/2022: Impression: - Small hiatal hernia. - Erythematous mucosa in the gastric body. - Normal second portion of the duodenum. - No specimens collected. Estimated Blood Loss: Estimated blood loss: none. Recommendation: - Discharge patient to home (ambulatory). - Advance diet as tolerated today. - Return to primary care physician. Colonoscopy 01/20/2022: Impression: - The examined portion of the ileum was normal. - The entire examined colon is normal. - The examination was otherwise normal. - No specimens collected. Estimated Blood Loss: Estimated blood loss: none. Recommendation: - Discharge patient to home (ambulatory). - Patient has a contact number available for emergencies. The signs and symptoms of potential delayed complications were discussed with the patient. Return to normal activities tomorrow. Written discharge instructions were provided to the patient. - Advance diet as tolerated PRN. - Repeat colonoscopy in 10 years for screening purposes. - Return to referring physician PRN. - Continue present medications. Last OV with me 12/01/2021: 1. Generalized abdominal pain -- Patient having generalized abdominal pain, worse in epigastric region. Pain is worse after eating. -- Continue Pepcid. Small frequent meals. -- Start Miralax daily to help with constipation -- EGD r/o gastritis, PUD - EGD DIAGNOSTIC; Future 2. Chronic constipation -- Taking Miralax PRN, recommend starting this daily to help facilitate a bowel movement. She will reach out in one week with an update. - polyethylene glycol 3350 (MIRALAX, GLYCOLAX) 17 gram/dose powder; Use as directed for Miralax / Gatorade Bowel Prep Kit Dispense: 238 g; Refill: 0 - Gatorade Sports Drink; Use as directed for Miralax / Gatorade Bowel Prep Kit - Bisacodyl (DULCOLAX) 5 mg tab; Use as directed for Miralax / Gatorade Bowel Prep Kit Dispense: 4 tablet; Refill: 0 - COLONOSCOPY SCREENING; Future 3. Gastroesophageal reflux disease, unspecified whether esophagitis present -- Taking Pepcid BID with some relief. Could not tolerate Prilosec. -- Will plan for EGD for further evaluation. Recommend high protein, high fiber diet. Promotion of salivation through oral lozenges/chewing gum Drink plenty of water Avoid NSAIDs (such as Advil, Ibuprofen, Excedrin, Mobic), tobacco, alcohol, carbonated beverages, caffeine, chocolate, tomato based sauces, spicy/fatty foods, and peppermint Avoid eating less than 3 hours before bed. Elevate the head of the bed 6 inches, or invest in a wedge pillow. Laying on left side with head elevated may help alleviate reflux symptoms. - EGD DIAGNOSTIC; Future 4. Screening for colon cancer -- Last colonoscopy was in 2010, normal. - polyethylene glycol 3350 (MIRALAX, GLYCOLAX) 17 gram/dose powder; Use as directed for Miralax / Gatorade Bowel Prep Kit Dispense: 238 g; Refill: 0 - Gatorade Sports Drink; Use as directed for Miralax / Gatorade Bowel Prep Kit - Bisacodyl (DULCOLAX) 5 mg tab; Use as directed for Miralax / Gatorade Bowel Prep Kit Dispense: 4 tablet; Refill: 0 - COLONOSCOPY SCREENING; Future 5. Early satiety -- Appetite has been poor and notes a lot of early satiety. -- EGD for further evaluation - EGD DIAGNOSTIC; Future 6. Weight loss -- Continues to lose weight due to poor appetite and not feeling well. -- EGD/colonoscopy for further evaluation - EGD DIAGNOSTIC; Future 7. Dysphagia, unspecified type -- Solid foods are sticking in her lower esophagus, does have to regurgitate at times. -- EGD for further evaluation - EGD DIAGNOSTIC; Future Follow up in office 3 months/PRN. Current Outpatient Medications Medication Sig COMBIVENT RESPIMAT 20-100 mcg/actuation inhaler [START ON 03/10/2022] HYDROcodone-acetaminophen (NORCO) 5-325 mg per tablet Take 1 tablet by mouth every 6 hours as needed for pain for up to 30 days. Take one pill 4 times daily as needed for back pain 2 of 2 Rx Do not start before March 10, 2022. HYDROcodone-acetaminophen (NORCO) 5-325 mg per tablet Take 1 tablet by mouth every 6 hours as needed for pain for up to 30 days. Take one pill 4 times daily as needed for back pain 1 of 2 Rx Do not start before February 09, 2022. metoprolol succinate ER (TOPROL XL) 25 mg 24 hr tablet Take 1 tablet by mouth once daily. hydrOXYzine HCl (ATARAX) 25 mg tablet Take 1 tablet by mouth twice daily as needed for anxiety. loratadine (CLARITIN) 10 mg tablet Take 1 tablet by mouth once daily as needed. FOR ALLERGY SYMPTOMS tiZANidine (ZANAFLEX) 2 mg tablet Take 1-2 tablets every 8 hours as needed for muscle spasm relatedpain ALBUTEROL SULFATE HFA INHALATION Inhale as instructed. famotidine (PEPCID) 20 mg tablet Take 1 tablet by mouth twice daily. polyethylene glycol 3350 (MIRALAX) 17 gram/dose powder Take 17 g by mouth once daily. As needed forconstipation rosuvastatin (CRESTOR) 10 mg tablet Take 1 tablet by mouth daily at bedtime. fluticasone (FLONASE) 50 mcg/actuation nasal spray place 1 spray into each nostril twice a day Nebulizer Accessories kit 4 kits per month. Dx J44.9 albuterol (PROVENTIL) 2.5 mg /3 mL (0.083 %) nebulizer solution Use 3 mL via nebulizer every 4 hours as needed for Wheezing/Shortness of Breath. Use over 5-15minutes. Cholecalciferol, Vitamin D3, 2,000 unit cap Take 1 capsule by mouth once daily. DULERA 200-5 mcg/actuation inhaler Inhale 2 Puffs as instructed twice daily. SPIRIVA WITH HANDIHALER 18 mcg inhalation capsule inhale contents of 1 capsule daily (Patient not taking: Reported on 03/03/2022) Current Facility-Administered Medications Medication Dose Route Frequency perflutren lipid microspheres 1.3 mL in NaCl (PF) 0.9% 10 mL injection (DEFINITY) INTRAVENOUS DIRECTED PRN sodium chloride 0.9 % (flush) 10 mL (BD POSIFLUSH) 10 mL INTRAVENOUS DIRECTED PRN ALLERGIES Allergen Reactions Bactrim [Sulfametho* Other: See Comments [place] sick, barely could breath. [place] deathly sick . GI upset Penicillins Anaphylaxis As a child passed out in md office after PCN injection. Zoloft [Sertraline * GI Upset GI upset, chest burning, muscle ache Ipratropium Other: See Comments Blurry vision, abdominal cramping, tremor, headache. Tudorza Pressair [A* Other: See Comments Heart palpitations, blurry vision, abdominal cramping, tremor, headache. Aclidinium Other: See Comments Cymbalta [Duloxetin* Intolerance panic Elavil [Amitriptyli* Intolerance GI upset, chest burning Fluticasone-Umeclid* Other: See Comments Gabapentin Intolerance Cough, sob, anxiety, increased drowsiness Incruse Ellipta [Um* Other: See Comments Heart palpitations, blurry vision, abdominal cramping, tremor, headache. Levofloxacin Other: See Comments pressure in head. Feel like she is going to throw up and pass out. Lyrica [Pregabalin] Other: See Comments Chest discomfort,burping,sob Methylprednisone Myalgia Sertraline GI Upset Sulfamethoxazole Other: See Comments Trimethoprim Other: See Comments Doxycycline Mental Status Change Makes her feel spacey . If given abx prefer to use this one out of all with the least amount of side effects. Social History Tobacco Use Smoking status: Every Day Packs/day: 1.00 Years: 33.00 Pack years: 33.00 Types: Cigarettes Start date: 04/10/1981 Smokeless tobacco: Never Tobacco comments: smoking 1 ppd. Vaping Use Vaping Use: Never used Substance Use Topics Alcohol use: No Drug use: No PAST MEDICAL HISTORY Diagnosis Date Acid reflux Back pain COPD (chronic obstructive pulmonary disease) ([facility]) 2016 FEV1 0.95L, 40% pred. COPD (chronic obstructive pulmonary disease) ([facility]) Kidney stones Osteopenia frax score 4% hip fracture risk 2017 start fosamax repeat imaging 1-2 years Unspecified asthma(493.90) PAST SURGICAL HISTORY Procedure Laterality Date COLONOSCOPY 01/20/2022 COLONOSCOPY FLX DX W/COLLJ SPEC WHEN PFRMD 05/27/2011 Colonoscopy CYSTO CALIBRATION DILAT URTL STRIX/STENOSIS N/A 11/22/2018 EGD W/O BRSH SPEC VARICIES INJ 01/20/2022 LAPAROSCOPY SURG CHOLECYSTECTOMY 2005 Cholecystectomy, lap LIG/TRNSXJ FLP TUBE ABDL/VAG APPR UNI/BI Tubal ligation LITHOTRIPSY XTRCORP SHOCK WAVE Lithotripsy LUNG BIOPSY PAST SURGICAL HISTORY OF 1982 lung biopsy PAST SURGICAL HISTORY OF Right 05/2020 CT guided biopsy on Lung. Dr. Brayden ALONSO OPER STRES INCONTINENCE 08/2011 FAMILY HISTORY Problem Relation Age of Onset Blood Disease Father Blood Clots Heart Father Kidney Disease Sister Diabetes Sister Hypertension Sister other (Blood Clots) Sister COPD Sister Emphysema Sister other (Blood Clots) Sister Hypertension Sister Hypertension Brother Diabetes Brother Kidney Disease Brother Diabetes Brother Cancer Maternal Grandmother Lung other (Other) Paternal Grandmother with TB. Did not live with patient. Heart Daughter Hypertension Son Colon Cancer Other Nephew REVIEW OF SYSTEMS Review of Systems Constitutional: Positive for activity change, appetite change, chills and fatigue. HENT: Positive for trouble swallowing. Respiratory: Positive for cough, choking, chest tightness, shortness of breath and wheezing. Cardiovascular: Positive for palpitations. Gastrointestinal: Positive for abdominal pain, constipation and nausea. Change in Bowel Habits, Gas, Heartburn All other systems reviewed and are negative. PHYSICAL EXAM BP 118/72 Pulse 73 Ht 5' 2 (1.58m) Wt 104 lb (47.2kg) BMI 19.02 kg/(m^2). Physical Exam Constitutional: Appearance: Normal appearance. She is normal weight. HENT: Head: Normocephalic and atraumatic. Nose: Nose normal. Eyes: General: No scleral icterus. Extraocular Movements: Extraocular movements intact. Conjunctiva/sclera: Conjunctivae normal. Pupils: Pupils are equal, round, and reactive to light. Cardiovascular: Rate and Rhythm: Normal rate and regular rhythm. Pulses: Normal pulses. Heart sounds: Normal heart sounds. Pulmonary: Effort: Pulmonary effort is normal. Breath sounds: Normal breath sounds. Abdominal: General: Abdomen is flat. Bowel sounds are normal. Palpations: Abdomen is soft. Tenderness: There is abdominal tenderness (diffuse tenderness on palpation). Musculoskeletal: General: Normal range of motion. Cervical back: Normal range of motion and neck supple. Skin: General: Skin is warm and dry. Coloration: Skin is not jaundiced. Neurological: General: No focal deficit present. Mental Status: She is alert and oriented to person, place, and time. Psychiatric: Mood and Affect: Mood normal. Behavior: Behavior normal. Thought Content: Thought content normal. Judgment: Judgment normal. Assessment/Plan (R11.0) Nausea (primary encounter diagnosis) (R68.81) Early satiety (R63.4) Weight loss (R10.84) Generalized abdominal pain 1. Nausea -- Patient with ongoing nausea, early satiety, abdominal pain, weight loss. Reviewed EGD/colonoscopy in detail. -- Will plan for Gastric emptying study r/o gastroparesis - NM GASTRIC EMPTYING SOLID; Future 2. Early satiety -- Patient with ongoing nausea, early satiety, abdominal pain, weight loss. Reviewed EGD/colonoscopy in detail. -- Will plan for Gastric emptying study r/o gastroparesis - NM GASTRIC EMPTYING SOLID; Future 3. Weight loss -- Patient with ongoing nausea, early satiety, abdominal pain, weight loss. Reviewed EGD/colonoscopy in detail. -- Will plan for Gastric emptying study r/o gastroparesis - NM GASTRIC EMPTYING SOLID; Future 4. Generalized abdominal pain -- Patient with ongoing nausea, early satiety, abdominal pain, weight loss. Reviewed EGD/colonoscopy in detail. -- Will plan for Gastric emptying study r/o gastroparesis - NM GASTRIC EMPTYING SOLID; Future Follow up in office PRN. Recommended to please call office/go to ER if fever, chills, chest pain, SOB, diarrhea, nausea, emesis, worsening abdominal pain, dehydration occurs I spent 25 minutes in the visit, with more than 50% of the total [id number] time of the visit in counseling / coordination of care. I have confirmed and edited as necessary, the PFSH and ROS obtained by others. Domitila Lara PA-C March 03, 2022 1:28 PM [facility] History of Present illness Narrative* Ana Montgomery Ma - 02/06/2022 10:28 AM EDT External documents. Scan on 02/06/2022 9:00 AM by External Provider: Consultation - Pulmonary Ana Montgomery Ma [facility] History of Present illness Narrative* Lillie Bran APRN.CONFIDENTIAL SECRETARY - 02/04/2022 9:55 AM EDT Images from the original note were not included. [facility] [place] [facility] Today's Date: 02/04/2022 Last Visit: 12/08/[address] Paul Name: Jessica Gloria : 1955 Purpose: Established Patient Encounter Interval History: Since last encounter, Jessica Gloria; PMH significant for COPD, smoker, REYNA, generalized abd pain, kidney stones, anxiety; reports that the chronic problem(s) of neck, thoracic and low back pain are Unchanged. Denies new or worsening symptoms. Pain Description: Timing: constant Character: Aching and Dull Primary Location: Neck, thoracic and low back Radiation: none The patient denies difficulty with bowel or bladder control. New Problems reported: None Recall: Patient of Dr. Paul. Current Status: INTAKE PAIN ASSESSMENT 01/20/2022 02/04/2022 Are you having pain associated with your visit today? - Yes, Provider notified Pain Scales - Verbal (Numeric Rating or Visual Analog Scale) Pain Level 0 6 Pain Location - Back-Middle Description - Burning;Aching;Sore;Tightness Duration Amount of Time - - Duration Units - Years Frequency - Continuous Intervention/Comfort measure - Reposition;Relaxation;Positioning;Medication;Heat Comments - - Pain Assessment (RN/FOOD AND BEVERAGE ASSISTANT) Reassessment - Opioid Medications requiring refills today: hydrocodone TID-QID Date last filled: 01/10/22 Quantity filled: 105 How many left: 12 Time most recent dose taken: 02/04/2022 Compliance: Safety Checklist: Are you taking proper precautions to safe guard your medication? Yes Taking the medications as prescribed? Yes Getting pain medications from another physician? No Obtaining pain medication from another source? No Sharing medications with friends/family? No Quality of life improved as a result of taking these medications? Yes Any side effect with this medication? No Justification for Continued Opioid Care: Adequate analgesia? Yes Aberrant drug seeking behavior? No Adverse reactions? No Medications improve quality of life? Yes Allergies: ALLERGIES Allergen Reactions Bactrim [Sulfametho* Other: See Comments [place] sick, barely could breath. [place] deathly sick . GI upset Penicillins Anaphylaxis As a child passed out in md office after PCN injection. Zoloft [Sertraline * GI Upset GI upset, chest burning, muscle ache Ipratropium Other: See Comments Blurry vision, abdominal cramping, tremor, headache. Tudorza Pressair [A* Other: See Comments Heart palpitations, blurry vision, abdominal cramping, tremor, headache. Cymbalta [Duloxetin* Intolerance panic Elavil [Amitriptyli* Intolerance GI upset, chest burning Fluticasone-Umeclid* Other: See Comments Gabapentin Intolerance Cough, sob, anxiety, increased drowsiness Incruse Ellipta [Um* Other: See Comments Heart palpitations, blurry vision, abdominal cramping, tremor, headache. Levofloxacin Other: See Comments pressure in head. Feel like she is going to throw up and pass out. Lyrica [Pregabalin] Other: See Comments Chest discomfort,burping,sob Methylprednisone Myalgia Sulfamethoxazole Other: See Comments Doxycycline Mental Status Change Makes her feel spacey . If given abx prefer to use this one out of all with the least amount of side effects. Data Reviewed: Reviewed personally on today's date 02/04/2022 Relevant Imaging: MRI Spine Report MRI THORACIC SPINE WO IVCON Exam End: 12/30/2021 3:01 PM (Final result) Narrative: * * *Final Report* * * DATE OF EXAM: Dec 30 2021 3:01PM DEREK [id number] - MRI THORACIC SPINE WO IVCON / PROCEDURE REASON: Radiculopathy, thoracic region * * * * Physician Interpretation * * * * EXAMINATION: MRI CERVICAL SPINE WO IVCON, MRI THORACIC SPINE WO IVCON CLINICAL HISTORY: Cervical and thoracic radiculopathy. TECHNIQUE: Routine cervical and thoracic spine MR protocol without gadolinium. MQ: [id number] COMPARISON: None. RESULT: CERVICAL: Counting reference: Craniocervical junction. Anatomic Variants: None. Localizer images: Patchy infiltrates are noted in the upper lobes there appears to be thickening or small amount of fluid in the right major fissure on the dining service worker images but evaluation of the lungs is limited by MRI. Alignment: Accentuation of the normal cervical lordosis likely secondary to accentuated thoracic kyphosis. Craniocervical junction: Alignment at the craniocervical junction is within normal limits. Cord: The cervical spinal cord is within normal limits of signal intensity and morphology. Bone marrow signal/fracture: No evidence of pathologic marrow infiltration. No evidence of prior fracture. Cervical soft tissues: The paraspinal soft tissues are within normal limits. C2-C3: Canal and foramina are patent. C3-C4: Mild asymmetric facet degenerative changes. Canal and foramina remain patent. C4-C5: Canal and foramina are patent. C5-C6: Mild asymmetric facet degenerative changes. Canal and foramina remain patent. C6-C7: Canal and foramina are patent. C7-T1: Canal and foramina are patent. THORACIC: Counting reference: Lumbosacral junction. For the purposes of this report, L4-5 is considered the level of the iliac crest and assume there are 5 lumbar-type vertebrae. Anatomic variant: None. Audio Visual Manager (topogram) images: No additional findings. Alignment: Accentuation of the normal thoracic kyphosis. Mild to moderate disc space narrowing is noted in the midthoracic spine. Cord: The thoracic spinal cord and conus are within normal limits of signal intensity and morphology. Bone marrow signal/fracture: No evidence of pathologic marrow infiltration. No evidence of prior fracture. Thoracic soft tissues: The paraspinal soft tissues are within normal limits. Canal and foramina: Thoracic canal and foramina are patent. Impression: IMPRESSION: Mild cervical and thoracic degenerative disc disease without significant canal or foraminal stenosis. Cervical Anatomic Variant: None. Assume 7 cervical vertebrae with counting from the craniocervical junction. Anatomic Thoracic/Lumbar Variant: None. L4-5 is considered the level of the iliac crest and assume there are 5 lumbar-type vertebrae. Hand Umbrella Tipper: PEEWEE Transcribe Date/Time: Dec 30 2021 3:18P Dictated by : RACHEAL MCKEON MD This examination was interpreted and the report reviewed and electronically signed by: RACHEAL MCKEON MD on Dec 30 2021 3:28PM EST Recent labs: Creatinine Date Value Ref Range Status 11/19/2021 0.48 (L) 0.58 - 0.96 mg/dL Final @lastegfr(gfr)@ No results found for: PCGLUCOSE Pain Procedures: DATE PROCEDURE IMPROVEMENT Compliance: PDMP website checked and validated. All prescriptions have been APPROPRIATELY filled. No suspiciousactivity was identified. 02/04/2022 by Lillie Bran APRN.CONFIDENTIAL SECRETARY Last Drug screen: 09/30/21 appropriate. Risk Assessment: ERIKA-7: No flowsheet data found.(0-4) minimal anxiety, (5-9) mild anxiety, (10-14) moderate anxiety, (15-21) severe anxiety PHQ-9: No flowsheet data found.(0-4) minimal depression, (5-9) mild depression, (10-14) moderate depression, (15-19) moderately severe depression, (20-27) severe depression Current Medications, Past Medical History, Past Surgical History, Family History, Social History and Review of Systems: On today's date, 02/04/2022, noted above, I have confirmed and edited as necessary, the PFSH and ROS obtained by others. Physical Exam: 02/04/22 0937 Pulse: 84 Resp: 16 SpO2: 94% Constitutional: normal weight HEENT: Normal Cephalic, Atraumatic, Non-icteric sclera Eyes: Conjunctiva clear. No discharge from eyes Cardiovascular: Appears well perfused Lymphatic: No visible regional lymphadenopathy Skin: No visible rashes or ecchymosis Psychiatric: Full affect, Alert, Pleasant CERVICAL MUSCULOSKELETAL/NEURO EXAM: Inspection: - Symmetric without atrophy Posture: Kyphotic Gait: Normal Palpation: LEFT RIGHT Cervical Paraspinal Tenderness Negative Negative Levator Scapulae Negative Negative Trapezius Negative Negative Rhomboids Negative Negative (Other) Negative Negative Paraspinal spasm: None Greater Occipital Nerves: no tenderness in overlying tissue Cervical Facet Loading Positive Negative Strength: LEFT RIGHT Deltoid (C5) 5 5 Biceps (C6) 5 5 Triceps (C7) 5 5 Wrist Extensors (C8) 5 5 Abduct. Pollis Brevis (T1) 5 5 Muscle Tone: - Normal and symmetric Spurling: - Negative to the Bilateral side(s) Sensation: - Grossly intact to light touch in the C5-T1 Bilateral upper limb dermatomes. LUMBAR MUSCULOSKELETAL/NEURO EXAM Inspection: - Symmetric without atrophy Palpation: - Lumbar Paraspinal Tenderness: None in the Bilateral lumbar paraspinals - Paraspinal Spasms: None - Facet Loading: Right-negative; Left-negative - Greater Trochanter: None tenderness Bilateral Strength: LEFT RIGHT Iliopsoas (L2) 5 5 Quadriceps (L3) 5 5 Anterior Tibialis (L4): 5 5 Exten Hallucis Longus (L5) 5 5 Gastrocnemius (S1): 5 5 Muscle Tone: - Normal and symmetric Neural Tension Signs: -Straight Leg Exam Negative Bilateral lower limb(s) -Contralateral Straight Leg Raise Negative Bilateral lower limb(s) Sensation: - intact to light touch in the L2-S2 Bilateral lower limb dermatomes Diagnoses: (Z79.891) senior living current use of opiate analgesic (primary encounter diagnosis) (M47.814) Thoracic spondylosis without myelopathy (M47.812) Cervical spondylosis without myelopathy (M47.817) Lumbosacral spondylosis without myelopathy (G89.4) Chronic pain syndrome Impression & Plan: 66 year old female with significant past medical history for COPD, smoker, REYNA, generalized abd pain, kidney stones, anxiety, who presents with complaint(s) of diffuse neck midback and low back pain. Denies any significant interval changes since her last evaluation. She had a put a hold on completing her cervical RFA due to some other underlying medical testing. She is nowready to move forward. Cervical and thoracic MRIs reviewed today. Primarily she has mild multilevel degenerative disc disease with degenerative changes throughout. There is no significant foraminal or canal stenosis appreciated. Examination is consistent with more mechanical facet mediated pain. She has not responded well in the past to medication such as Cymbalta or Effexor. She had previously had excellent relief with thoracic RFA in February 2021, she feels that this iswearing off. I offered to order updated RFA however she declined today. Jessica Gloria would benefit from the following to decrease pain, improve function and/or work participation, and improve quality of life: Medications: Refill: Requested Prescriptions Signed Prescriptions Disp Refills HYDROcodone-acetaminophen (NORCO) 5-325 mg per tablet 105 tablet 0 Sig: Take 1 tablet by mouth every 6 hours as needed for pain for up to 30 days. Take one pill 4 times daily as needed for back pain 2 of 2 Rx Do not start before March 10, 2022. HYDROcodone-acetaminophen (NORCO) 5-325 mg per tablet 105 tablet 0 Sig: Take 1 tablet by mouth every 6 hours as needed for pain for up to 30 days. Take one pill 4 times daily as needed for back pain 1 of 2 Rx Do not start before February 09, 2022. UDS, NAOIC/ORT: Reviewed and consistent, repeat UDS today Functional Sabianism: No changes-continue current regimen Additional Studies: None Referrals: None Additional: Patient reports they are happy with current treatment care plan. At this time will continued the patient's opioids today for 60 days. The patient continues to see benefit and improvement in their quality of life with adequate analgesia and ADLS's maintained. No adverse effects, no aberrant behaviors noted; OARRS reviewed and consistent. Risks of long-term medication use was reviewed and Patient advised the above medications may cause impairment of judgement while driving or operating machinery. Patient instructed on safe storage of medications We will re-evaluate opiate regimen in 60 days, office visit, to determine efficacy of treatment to ensure that we are using the lowest dose for maximum benefit. Depending on response to the above plan, consider: Follow-up: 2 months Attribution: In addition to reviewing the information noted above, some elements copied from my most recent clinical note(s), including the physical exam (completed in entirety today), and the impression and plan sections, have been updated where appropriate. All reflect current medical decision making from today's date. Lillie Bran APRN.CONFIDENTIAL SECRETARY [facility] * Deonna Kennedy MA - 02/04/2022 9:34 AM EDT Review of Systems Constitutional: Negative for activity change, chills, fever and unexpected weight change. Gastrointestinal: Negative for bowel retention or incontinence Genitourinary: Positive for difficulty urinating (Occasionally). Negative for bladder retention or incontinence Musculoskeletal: Positive for arthralgias, back pain, gait problem, myalgias, neck pain and neck stiffness. Negative for joint swelling. Neurological: Positive for weakness and numbness. Negative for headaches. Psychiatric/Behavioral: Positive for sleep disturbance. Negative for dysphoric mood and suicidal ideas. The patient is nervous/anxious. documented in [facility]Kn[facility]22 Instructions* Patient Instructions* Meche Romero APRN.CONFIDENTIAL SECRETARY - 01/19/2022 3:13 PM EDT Heart Disease in Women Is heart disease a problem for women? Heart disease is the leading cause of of [place] women. More women from heart disease than from cancer. A heart attack can happen when there are problems with the blood vessels that bring blood to the heart (the coronary arteries). For example, fatty deposits called plaque may build up in the coronary arteries and make them narrower. The narrowing decreases blood flow to the heart. Plaque also increases the chance that blood clots may form and block a blood vessel, which can cause a heart attack orstroke. In the first year after a heart attack, women have an increased risk of . In the first 6 yearsafter a heart attack, they also have a higher risk of a second heart attack. Women are at high riskoften because they are older at the time of the heart attack and have other medical problems. Not everyone has the same symptoms. The most common symptoms of a heart attack include: Chest pain or pressure, squeezing, or fullness in the center of your chest that lasts more than a few minutes, or goes away and comes back (may feel like indigestion or heartburn) Pain or discomfort in one or both arms or shoulders, or in your back, neck, jaw, or stomach Trouble breathing Breaking out in a cold sweat for no known reason Along with these symptoms, you may also feel very tired, faint, or be sick to your stomach. Sometimes you can be having a heart attack and not know it. Many women have chest pain or pressure,but sometimes symptoms in women are different from men s symptoms. Or women may have additional symptoms, such as: Unexplained anxiety and nervousness Swelling of the ankles or lower legs Because they may not feel the typical pain in the left side of their chest, many women may ignore the symptoms of a heart attack. Call 911 for emergency help right away if you have these symptoms. Donot drive yourself to the hospital. Immediate emergency care improves your chances of survival and may help avoid damage to your heart. How can women lower their risk for heart disease? If you have high blood pressure, carefully follow your healthcare provider's instructions for keeping it under control. If you are a smoker, stop smoking. Try to keep a healthy weight. If you are overweight, talk to your provider about ways to lose weight. Eat a healthy diet that includes: ?Avoiding salty foods and not adding salt to food ?Increasing fiber, fruits, and vegetables ?Avoiding foods high in fat, cholesterol, and sugar Exercise according to your healthcare provider's instructions. Get enough rest and learn to use relaxation methods to help reduce stress. Treat and control medical conditions such as diabetes and high cholesterol. If you are taking hormone therapy, you and your healthcare provider should discuss the risks and benefits. Hormone therapy may increase the risk for heart disease or stroke. Talk with your provider about taking aspirin. Low-dose aspirin therapy reduces the risk of stroke for women. But it helps to lower a woman s risk of heart attack and other heart problems only if she is 65 or older. Make sure that your provider knows about any other medicines you are taking. If you decide you needto make changes in the way you live, you probably won't be able to turn your life around all at once. Try to develop healthy habits that incorporate your lifestyle goals. If you do, you will greatly decrease your chances for developing heart disease. You can get more information from: [place] [facility] Rerqzpsyala3-386-OQV-USA-1 ( )www.heart.org Developed by [employer]. Published by [employer]. Copyright 2014 [employer] and/or one of its subsidiaries. All rights reserved. documented in this encounterKnox [facility]07-25-2022 History of Present illness Narrative* Meche Romero APRN.CNP - 01/19/2022 3:00 PM EDT Chief Complaint Patient presents with: Established Patient History of Present Illness: Jessica Gloria is a 66 year old female who presents for routine follow up. She has a PMhx of COPD, chronic pain, anxiety, PNA, smoker, family hx of heart disease. She was last seen in office by myself on 07/21/2021. Her accompanies her for her office visit today. She explains she was hospitalized in October and treated for COPD exacerbation and pneumonia. She has slowly gained her strength back. She still remains with chronic shortness of breath and nighttime O2. She is primarily limited in activity by her shortness of breath and back and neck pain. She has occasional palpitations that are better controlled with metoprolol. She also still has occasional dizziness. She denies chest pain with activity, syncope, orthopnea, LE swelling. We reviewed cardiac risk factors modifications. She admits to forgetting to take her statin. Encouraged medication compliance. PAST MEDICAL HISTORY Diagnosis Date Acid reflux Back pain COPD (chronic obstructive pulmonary disease) ([facility]) 2016 FEV1 0.95L, 40% pred. COPD (chronic obstructive pulmonary disease) ([facility]) Kidney stones Osteopenia frax score 4% hip fracture risk 2017 start fosamax repeat imaging 1-2 years Unspecified asthma(493.90) PAST SURGICAL HISTORY Procedure Laterality Date COLONOSCOPY FLX DX W/COLLJ SPEC WHEN PFRMD 05/27/2011 Colonoscopy CYSTO CALIBRATION DILAT URTL STRIX/STENOSIS N/A 11/22/2018 LAPAROSCOPY SURG CHOLECYSTECTOMY 2005 Cholecystectomy, lap LIG/TRNSXJ FLP TUBE ABDL/VAG APPR UNI/BI Tubal ligation LITHOTRIPSY XTRCORP SHOCK WAVE Lithotripsy LUNG BIOPSY PAST SURGICAL HISTORY OF 1981 lung biopsy PAST SURGICAL HISTORY OF Right 05/2020 CT guided biopsy on Lung. Dr. Owen SLING OPER STRES INCONTINENCE 08/2011 FAMILY HISTORY Problem Relation Age of Onset Blood Disease Father Blood Clots Heart Father Kidney Disease Sister Diabetes Sister Hypertension Sister other (Blood Clots) Sister COPD Sister Emphysema Sister other (Blood Clots) Sister Hypertension Sister Hypertension Brother Diabetes Brother Kidney Disease Brother Diabetes Brother Cancer Maternal Grandmother Lung other (Other) Paternal Grandmother with TB. Did not live with patient. Heart Daughter Hypertension Son Colon Cancer Other Nephew Social History Tobacco Use Smoking status: Current Every Day Smoker Packs/day: 0.50 Years: 33.00 Pack years: 16.50 Types: Cigarettes Start date: 04/10/1981 Smokeless tobacco: Never Used Tobacco comment: smoking 1 ppd. Vaping Use Vaping Use: Never used Substance Use Topics Alcohol use: No Drug use: No ALLERGIES Allergen Reactions Bactrim [Sulfametho* Other: See Comments [place] sick, barely could breath. [place] deathly sick . GI upset Penicillins Anaphylaxis As a child passed out in md office after PCN injection. Zoloft [Sertraline * GI Upset GI upset, chest burning, muscle ache Ipratropium Other: See Comments Blurry vision, abdominal cramping, tremor, headache. Tudorza Pressair [A* Other: See Comments Heart palpitations, blurry vision, abdominal cramping, tremor, headache. Cymbalta [Duloxetin* Intolerance panic Elavil [Amitriptyli* Intolerance GI upset, chest burning Fluticasone-Umeclid* Other: See Comments Gabapentin Intolerance Cough, sob, anxiety, increased drowsiness Incruse Ellipta [Um* Other: See Comments Heart palpitations, blurry vision, abdominal cramping, tremor, headache. Levofloxacin Other: See Comments pressure in head. Feel like she is going to throw up and pass out. Lyrica [Pregabalin] Other: See Comments Chest discomfort,burping,sob Methylprednisone Myalgia Sulfamethoxazole Other: See Comments Doxycycline Mental Status Change Makes her feel spacey . If given abx prefer to use this one out of all with the least amount of side effects. Medications: Current Outpatient Medications Medication Sig Dispense Refill hydrOXYzine HCl (ATARAX) 25 mg tablet Take 1 tablet by mouth twice daily as needed for anxiety. 60 tablet 3 loratadine (CLARITIN) 10 mg tablet Take 1 tablet by mouth once daily as needed. FOR ALLERGY SYMPTOMS 30 tablet 11 HYDROcodone-acetaminophen (NORCO) 5-325 mg per tablet Take 1 tablet by mouth every 6 hours as needed for pain for up to 30 days. Take one pill 4 times daily as needed for back pain 2 of 2 Rx Do not start before January 10, 2022. 105 tablet 0 tiZANidine (ZANAFLEX) 2 mg tablet Take 1-2 tablets every 8 hours as needed for muscle spasm relatedpain 90 tablet 2 ALBUTEROL SULFATE HFA INHALATION Inhale as instructed. polyethylene glycol 3350 (MIRALAX) 17 gram/dose powder Take 17 g by mouth once daily. As needed forconstipation 507 g 5 fluticasone (FLONASE) 50 mcg/actuation nasal spray place 1 spray into each nostril twice a day Cholecalciferol, Vitamin D3, 2,000 unit cap Take 1 capsule by mouth once daily. DULERA 200-5 mcg/actuation inhaler Inhale 2 Puffs as instructed twice daily. 0 VENTOLIN HFA 90 mcg/actuation inhaler Take 2 Puffs by mouth as needed. metoprolol succinate ER (TOPROL XL) 25 mg 24 hr tablet Take 1 tablet by mouth once daily. 90 tablet3 HYDROcodone-acetaminophen (NORCO) 5-325 mg per tablet Take 1 tablet by mouth every 6 hours as needed for pain for up to 30 days. Take one pill 4 times daily as needed for back pain 1 of 2 Rx Do not start before December 11, 2021. 105 tablet 0 HYDROcodone-acetaminophen (NORCO) 5-325 mg per tablet Take 1 tablet by mouth every 6 hours as needed for pain for up to 7 days. 28 tablet 0 SPIRIVA WITH HANDIHALER 18 mcg inhalation capsule inhale contents of 1 capsule daily (Patient not taking: Reported on 01/19/2022) polyethylene glycol 3350 (MIRALAX, GLYCOLAX) 17 gram/dose powder Use as directed for Miralax / Gatorade Bowel Prep Kit 238 g 0 Gatorade Sports Drink Use as directed for Miralax / Gatorade Bowel Prep Kit Bisacodyl (DULCOLAX) 5 mg tab Use as directed for Miralax / Gatorade Bowel Prep Kit 4 tablet 0 famotidine (PEPCID) 20 mg tablet Take 1 tablet by mouth twice daily. (Patient not taking: Reported on 01/19/2022 ) 60 tablet 5 HYDROcodone-acetaminophen (NORCO) 5-325 mg per tablet Take 1 tablet by mouth four times daily for 30 days. Take one pill 3-4 times daily as needed for back pain Do not start before August 05, 2021. 105 tablet 0 rosuvastatin (CRESTOR) 10 mg tablet Take 1 tablet by mouth daily at bedtime. (Patient not taking: Reported on 01/19/2022 ) 90 tablet 3 Nebulizer Accessories kit 4 kits per month. Dx J44.9 (Patient not taking: Reported on 01/19/2022 ) 4 Kit 11 albuterol (PROVENTIL) 2.5 mg /3 mL (0.083 %) nebulizer solution Use 3 mL via nebulizer every 4 hours as needed for Wheezing/Shortness of Breath. Use over 5- 15minutes. (Patient not taking: Reported on01/19/2022 ) Current Facility-Administered Medications Medication Dose Route Frequency Provider Last Rate Last Admin perflutren lipid microspheres 1.3 mL in NaCl (PF) 0.9% 10 mL injection (DEFINITY) INTRAVENOUS DIRECTED PRN Meche Romero APRN.CNP sodium chloride 0.9 % (flush) 10 mL (BD POSIFLUSH) 10 mL INTRAVENOUS DIRECTED PRN Meche Romero APRN.CONFIDENTIAL SECRETARY Review of Systems Constitutional: Positive for malaise/fatigue. Negative for chills, diaphoresis, fever and weight loss. HENT: Negative for congestion, ear pain, nosebleeds, sinus pain and sore throat. Eyes: Negative for pain. Respiratory: Positive for shortness of breath. Negative for cough and wheezing. Cardiovascular: Negative for chest pain, palpitations and leg swelling. Gastrointestinal: Negative for abdominal pain, blood in stool and melena. Genitourinary: Negative for hematuria. Musculoskeletal: Positive for back pain and neck pain. Negative for falls. Neurological: Positive for dizziness and weakness ( Generalized). Negative for tingling, sensory change, speech change, focal weakness, loss of consciousness and headaches. Endo/Heme/Allergies: Does not bruise/bleed easily. Psychiatric/Behavioral: Negative for depression, memory loss and suicidal ideas. The patient is notnervous/anxious and does not have insomnia. Physical Examination: Vitals:BP 132/74 Pulse 74 Resp 16 Ht 5' 2 (1.58m) Wt 104 lb (47.2kg) SpO2 96% BMI 19.02 kg/(m^2). Last 2 Encounter Wt Readings: Date: Wt: 12/01/2021 106 lb (48.1 kg) 11/25/2021 111 lb (50.3 kg) Physical Exam HENT: Head: Normocephalic. Eyes: Pupils: Pupils are equal, round, and reactive to light. Cardiovascular: Rate and Rhythm: Normal rate. Pulses: Radial pulses are 2+ on the right side and 2+ on the left side. Dorsalis pedis pulses are 2+ on the right side and 2+ on the left side. Heart sounds: Normal heart sounds, S1 normal and S2 normal. Pulmonary: Effort: Pulmonary effort is normal. No accessory muscle usage or respiratory distress. Breath sounds: Decreased breath sounds and wheezing present. Abdominal: General: Bowel sounds are normal. Palpations: Abdomen is soft. Musculoskeletal: General: Normal range of motion. Cervical back: Normal range of motion. Skin: General: Skin is warm and dry. Neurological: Mental Status: She is alert and oriented to person, place, and time. Gait: Gait is intact. Psychiatric: Mood and Affect: Affect normal. Cognition and Memory: Memory normal. Judgment: Judgment normal. Most Recent Cardiac Testing Stress testing 07/2021 CONCLUSIONS: 1. SPECT Perfusion Study: Normal. 2. There is no scintigraphic evidence for inducible ischemia. 3. No evidence of scarred myocardium. 4. Left ventricle is small. The left ventricle systolic function is hyperdynamic. 5. Right ventricle is normal in size. The right ventricle systolic function is normal. 6. This is a low risk scan. Gated Stress FBP Gated Rest FBP LVEF % 84 80 06/05/2021 CONCLUSIONS: - Technically difficult exam due to parasternal views. - Exam indication: Shortness of Breath - The left ventricle is normal in size. Left ventricular systolic function is normal. EF = 71 5% (3D) Normal left ventricular diastolic function. - The right ventricle is normal in size. Right ventricular systolic function is normal. - No significant valvular disease. - The patient has not had a prior CC echocardiographic exam for comparison. Monitor 05/2021 Patient had a min HR of 54 bpm, max HR of 143 bpm, and avg HR of 86 bpm. Predominant underlying rhythm was Sinus Rhythm. 2 Supraventricular Tachycardia runs occurred, the run with the fastest interval lasting 15 beats with a max rate of 143 bpm (avg 132 bpm); the run with the fastest interval was also the longest. Isolated SVEs were rare (<1.0%), SVE Couplets were rare (<1.0%), and SVE Triplets were rare (<1.0%). Isolated VEs were frequent (5.9%, 36446), VE Couplets were rare (<1.0%, 94), and no VE Triplets were present. Ventricular Bigeminy and Trigeminy were present. Assessment and Plan: CAD -mild calcifications seen on CT of chest -without symptoms concerning for angina -EF 71% -recent stress testing without suggestion of ischemia, low risk scan -continue statin -encouraged routine activity and heart healthy diet for risk factor modification Palpitations -monitor with PVC [place] at 5.9% and a few runs of SVT -improved with metoprolol -echocardiogram completed with grossly normal structure and function -recent stress testing without suggestion of ischemia, low risk scan -recommended conservative measures: stay hydrated, limit stimulants/caffiene, limit stress HTN -137/74 -Continue current medication(s) -Encouraged dietary sodium restriction/DASH diet -Recommended regular aerobic exercise. -Recommend home blood pressure monitoring, to bring results in on next visit -Goal of BP <130/80 HLD -lipid panel 07/2021 LDL 122 -Crestor 10 mg -pending FLP PAD -ABIs 07/2021 mild PAD -continue Crestor Tobacco use -Encouraged cessation -Physiologic and physical aspects of tobacco addiction as well as strategies for quitting were discussed. -Counseling was given focusing on the harmful effects of this addiction especially given the patient's medical condition(s) which will be worsened because of the chemicals in tobacco. COPD -follows with pulmonary at [facility] Follow up in 1 year. Patient to call with any issues or concerns prior to then. Electronically signed by Meche Romero APRN.CNP on January 19, 2022, 12:20 PM documented in this encounterKn[facility]07-19-2022 Miscellaneous Notes* Telephone Encounter - Batool Marinelli RN - 01/13/2022 5:16 PM EDT GI Pre-Procedure Spoke with patient: Yes Confirmed date scheduled and patient report time: Yes Procedure Planned:Colonoscopy with or without biopsies based on clinical findings Esophagogastroduodenoscopy(EGD) with or without biopies based on clinical findings, removal of polyps or lesions Is the patient on blood thinners?no Procedure Instructions given to patient: Yes, and they verbalized their understanding of instructions given Patient instructed to take prescribed preparation prior to procedure:Yes, and they verbalized theirunderstanding of instructions given Patient instructed to have family/friend present for procedure transport home:Patient/patient rental sales representative was told that if they do not have a responsible adult accompany them to their procedure; and remain in the endoscopy area until they are discharged; that their procedure cannot be done with s edation or anesthesia and may be cancelled. and They verbalized their understanding and agree to have a responsible adult accompany the patient to their procedure and remain in the endoscopy area. Any barriers to Patient learning: Patient/Patient Preschool Director responded appropriately on phone. Type of instruction given: Verbal by telephone contact. Batool Marinelli RN documented in this encounterKn[facility] Hospital06-17-2022 Miscellaneous Notes* Telephone Encounter - Louis Holguin MA - 12/12/2021 7:36 AM EDT Prior authorization: status(denied) Insurance: [facility] Medication:TIZANIDINE 2mg tab Reason: did not establish medical necessity. documented in this encounterKnox [facility] Hospital06-15-2022 Miscellaneous Notes* Telephone Encounter - Louis Holguin MA - 12/10/2021 2:30 PM EDT Letter received via. Fax regarding the patients current uses of the medications HYDROCODONE-APAP and CYCLOBENZAPRINE. Studies suggest concurrent use of opioids and muscle relaxants might put patientsat grater risk for potentially fatal opioid overdose. (letter placed in scanned) documented in this encounterKnox [facility] Hospital06-08-2022 Miscellaneous Notes* Telephone Encounter - Otto Paul MD - 12/03/2021 4:50 PM EDT Chart and PDMP reviewed. Patient has Hydrocodone last filled from 11/03/21 until 12/03/21. She has a followup appt on 12/08/21. Bridge script for 7 days sent to patients pharmacy until her followup on 12/08/21. * Telephone Encounter - Sanjuana Soriano - 12/02/2021 11:18 AM EDT Patient needs a bridge script for her hydrocodone . She will be out on December 02 and appointment is not scheduled until December 08. Please send to [facility] in [facility]. Thank you, Sanjuana Soriano documented in this encounterKnox Community Hospital06-08-2022 Miscellaneous Notes* Telephone Encounter - Louis Holguin MA - 12/03/2021 1:53 PM EDT Name/dose:HYDROCODONE-APAP 5-325 Amount dispensed monthly: 105 Date last filled: N.A Date last seen in office: 09.30.21 Provider:TRISTA Next scheduled visit: 12.08.21 Change in Pharmacy?NO Patient has an upcoming refill/ov scheduled for 12.08.21 with . documented in this encounterKnox [facility] Hospital06-06-2022 Instructions* Patient Instructions* Domitila Lara PA-C - 12/01/2021 11:56 AM EDT Images from the original note were not included. Bowel Preparation Instructions for: Miralax-Gatorade Preparations IF YOU DO NOT FOLLOW THESE DIRECTIONS, YOUR COLONOSCOPY WILL BE CANCELLED. [place] Instructions: Your bowel must be empty so that your doctor can clearly view your colon. Follow all of the instructions in this handout EXACTLY as they are written. Do NOT eat any solid food the ENTIRE day before your colonoscopy. Buy your bowel preparation at least 5 days before your colonoscopy. Four (4) Dulcolax laxative tablets containing 5mg of bisacodyl each (NOT Dulcolax stool softener) One (1) 8.3oz. bottle Miralax (238 grams) or generic equivalent 2 x 32oz. Bottles of Gatorade (NOT RED) Diabetic Patients: Use G2 (Gatorade 2) TRANSPORTATION on the Day of Your Exam A responsible adult MUST be present with you at Check In prior to your colonoscopy and REMAIN in the endoscopy area until you are discharged. You are NOT ALLOWED to drive, take a taxi or bus, or leave the Endoscopy Center ALONE. If you do not have a responsible milk tanker driver (family member or friend) withyou to take you home, your exam cannot be done with sedation and will be cancelled. Please bring a list of all of your current medications, including any Sqlz-yrm-Fesiuyn medications with you. Medications If you take insulin, diabetic medications or blood thinners such as Coumadin (warfarin), Plavix (clopidogrel), Ticlid (ticlopidine hydrochloride), Agrylin (anagrelide), Xarelto (Rivaroxaban), Pradaxa(Dabigatran), Eliquis (Apixaban), and Effient (Prasugrel). You MUST call the doctors who orders those medicines for instructions on altering the dosage before your colonoscopy. All other medications should be taken the day of the exam with a sip of water including ASPIRIN. Five (5) Days Before Your Colonoscopy Do NOT take medicines that stop diarrhea - such as Imodium, Kaopectate, or Pepto Bismol. Do NOT take fiber supplements - such as Metamucil, Citrucel, or Perdiem. Do NOT take products that contain iron - such as multi-vitamins (the label lists what is in the products). Three (3) Days Before Your Colonoscopy Do NOT eat high-fiber foods - such as popcorn, beans, seeds (flax, sunflower, quinoa), multigrain bread, nuts, salad/vegetables, or fresh and dried fruit. 2 Bowel Preparation Instructions for: Miralax-Gatorade Preparations One (1) Day Before Your Colonoscopy Only drink clear liquids the ENTIRE DAY before your colonoscopy. Do NOT eat any solid foods. Drink at least 8 ounces of clear liquids every hour after waking up. The clear liquids you can drink include: Clear Liquid (NO RED LIQUIDS) DO NOT DRINK Gatorade, Pedialyte or Powerade Clear broth or bouillon Coffee or tea (no milk or non-dairy creamer) Carbonated and non-carbonated soft drinks Keith-Aid or other fruit flavored drinks Strained fruit juices (no pulp) Jell-O, popsicles, hard candy Water Alcohol Milk or non-dairy creamers Noodles or vegetables in soup Juice with pulp Liquid you cannot see through Mix 1/2 of Miralax bottle (119 grams) in each 32 ounces of Gatorade bottle until dissolved. Keep cool in the refrigerator. DO NOT ADD ICE. The bowel preparation solution will be consumed in two parts. Part 1 5:00 PM - Evening before your colonoscopy Take 4 Dulcolax tablets. 6 PM - Evening before your colonoscopy Drink 32 oz. of the mixed solution. Drink an 8 oz. glass of bowel preparation every 15 minutes for a total of 4 glasses. Fifteen (15) minutes later, drink an 8 oz. glass of of clear liquids every 15 minutes for a total of 2 glasses. You may continue to drink clear liquids till midnight. Part 2 On the day of your colonoscopy you may drink clear liquids up to (three) 3 hours prior to procedure. 4 1/2 hours before your colonoscopy Take another 32 oz. bottle of mixed solution. Drink an 8 oz. glass of bowel prep every 15 minutes for a total of 4 glasses. Fifteen (15) minutes later, drink an 8 oz. glass of clear liquids every 15 minutes for a total of 2glasses. You may continue to drink clear liquids up to (three) 3 hours before your exam. 3 05/2019 [facility] History of Present illness Narrative* Domitila Lara PA-C - 12/01/2021 11:31 AM EDT CHIEF COMPLAINT: Patient presents with: Abdominal Pain: Constipation, trouble swallowing, appetite change. Labs 11/19/21 This consult was requested by Ankit Martinez MD for an opinion regarding abdominal pain, constipation, trouble swallowing . My final recommendations will be communicated to the requesting healthcare provider by way of the shared medical record for internal providers or letter via the [employer] for external providers. HPI: Jessica Gloria is a 66 year old female who presents for Abdominal Pain (Constipation, trouble swallowing, appetite change. Labs 11/19/21). PMHx of GERD, COPD, kidney stones, osteopenia, REYNA, depression is here. Patient tells me that she is having a lot of abdominal pain in the epigastric area, worse after eating. Tells me that her appetite is poor and having a lot of early satiety. Weight is decreasing. Having some chest pain with eating and doesn't feel like it will go down. No issues with liquids, smallpills stick. Does regurgitate back up. Very nauseous, no vomiting. Does get a lot of heartburn. Taking Pepcid with some relief. Did try Prilosec but couldn't handle it and didn't help. Bowel movements are more constipated. Feels like she has to go but can't. Can go 3 days without a BM. Stools can look maroon colored. No black stool. Last colonoscopy was in 2010. Normal. No hx of EGD. Patient is on 2L of oxygen at home. Also uses a Nebulizer. Following with Pulmonology . Currently on Azithromycin. Smokes 1 ppd. No alcohol use. Nephew from colon cancer. Component Latest Ref Rng & Units 11/19/2021 WBC 3.70 - 11.00 k/uL 19.15 (H) RBC 3.90 - 5.20 m/uL 4.23 Hemoglobin 11.5 - 15.5 g/dL 13.0 Hematocrit 36.0 - 46.0 % 40.5 MCV 80.0 - 100.0 fL 95.7 MCH 26.0 - 34.0 pg 30.7 MCHC 30.5 - 36.0 g/dL 32.1 RDW-CV 11.5 - 15.0 % 11.9 Platelet Count 150 - 400 k/uL 327 MPV 9.0 - 12.7 fL 9.0 Neut% % 88.9 Abs Neut (ANC) 1.45 - 7.50 k/uL 17.04 (H) Lymph% % 4.7 Abs Lymph 1.00 - 4.00 k/uL 0.90 (L) Wilcox% % 4.2 Abs Wilcox <0.87 k/uL 0.80 Eosin% % 0.4 Abs Eosin <0.46 k/uL 0.08 Baso% % 0.2 Abs Baso <0.11 k/uL 0.03 Immature Gran % % 1.6 IMMATURE GRANS (ABS) <0.10 k/uL 0.30 (H) NRBC /100 WBC 0.0 Absolute nRBC <0.01 k/uL <0.01 DTYPE Auto Protein, Total 6.3 - 8.0 g/dL 6.6 Albumin 3.9 - 4.9 g/dL 3.6 (L) Calcium 8.5 - 10.2 mg/dL 9.2 Bilirubin, Total 0.2 - 1.3 mg/dL 0.2 Alkaline Phosphatase 34 - 123 U/L 63 AST 13 - 35 U/L 22 ALT 7 - 38 U/L 25 Glucose 74 - 99 mg/dL 74 BUN 7 - 21 mg/dL 10 Creatinine 0.58 - 0.96 mg/dL 0.48 (L) Sodium 136 - 144 mmol/L 136 Potassium 3.7 - 5.1 mmol/L 4.2 Chloride 97 - 105 mmol/L 96 (L) CO2 22 - 30 mmol/L 28 Anion Gap 9 - 18 mmol/L 12 eGFR >=60 mL/min/1.73m 106 Component Latest Ref Rng & Units 11/17/2021 WBC 3.70 - 11.00 k/uL 16.11 (H) RBC 3.90 - 5.20 m/uL 4.27 Hemoglobin 11.5 - 15.5 g/dL 12.8 Hematocrit 36.0 - 46.0 % 41.3 MCV 80.0 - 100.0 fL 96.7 MCH 26.0 - 34.0 pg 30.0 MCHC 30.5 - 36.0 g/dL 31.0 RDW-CV 11.5 - 15.0 % 11.9 Platelet Count 150 - 400 k/uL 316 MPV 9.0 - 12.7 fL 9.4 Absolute nRBC <0.01 k/uL <0.01 Iron 41 - 186 ug/dL 64 TIBC 232 - 386 ug/dL 215 (L) Transferrin Saturation 15 - 57 % 30 TSH 0.270 - 4.200 mIU/L 2.530 Vitamin D 25 Hydroxy 31.0 - 80.0 ng/mL 28.4 (L) Record Review: [facility] / Outside records reviewed. PAST MEDICAL HISTORY Diagnosis Date Acid reflux Back pain COPD (chronic obstructive pulmonary disease) (HCC) 2016 FEV1 0.95L, 40% pred. COPD (chronic obstructive pulmonary disease) (HCC) Kidney stones Osteopenia frax score 4% hip fracture risk 2017 start fosamax repeat imaging 1-2 years Unspecified asthma(493.90) PAST SURGICAL HISTORY Procedure Laterality Date COLONOSCOPY FLX DX W/COLLJ SPEC WHEN PFRMD 05/27/2011 Colonoscopy CYSTO CALIBRATION DILAT URTL STRIX/STENOSIS N/A 11/22/2018 LAPAROSCOPY SURG CHOLECYSTECTOMY 2005 Cholecystectomy, lap LIG/TRNSXJ FLP TUBE ABDL/VAG APPR UNI/BI Tubal ligation LITHOTRIPSY XTRCORP SHOCK WAVE Lithotripsy LUNG BIOPSY PAST SURGICAL HISTORY OF 1982 lung biopsy PAST SURGICAL HISTORY OF Right 05/2020 CT guided biopsy on Lung. Dr. Brayden ALONSO OPER STRES INCONTINENCE 08/2011 Allergies: ALLERGIES Allergen Reactions Bactrim [Sulfametho* Other: See Comments [place] sick, barely could breath. [place] deathly sick . GI upset Penicillins Anaphylaxis As a child passed out in md office after PCN injection. Zoloft [Sertraline * GI Upset GI upset, chest burning, muscle ache Ipratropium Other: See Comments Blurry vision, abdominal cramping, tremor, headache. Tudorza Pressair [A* Other: See Comments Heart palpitations, blurry vision, abdominal cramping, tremor, headache. Cymbalta [Duloxetin* Intolerance panic Elavil [Amitriptyli* Intolerance GI upset, chest burning Fluticasone-Umeclid* Other: See Comments Gabapentin Intolerance Cough, sob, anxiety, increased drowsiness Incruse Ellipta [Um* Other: See Comments Heart palpitations, blurry vision, abdominal cramping, tremor, headache. Levofloxacin Other: See Comments pressure in head. Feel like she is going to throw up and pass out. Lyrica [Pregabalin] Other: See Comments Chest discomfort,burping,sob Methylprednisone Myalgia Sulfamethoxazole Other: See Comments Doxycycline Mental Status Change Makes her feel spacey . If given abx prefer to use this one out of all with the least amount of side effects. Medications: SPIRIVA WITH HANDIHALER 18 mcg inhalation capsule inhale contents of 1 capsule daily ALBUTEROL SULFATE HFA INHALATION Inhale as instructed. famotidine (PEPCID) 20 mg tablet Take 1 tablet by mouth twice daily. polyethylene glycol 3350 (MIRALAX) 17 gram/dose powder Take 17 g by mouth once daily. As needed forconstipation tiZANidine (ZANAFLEX) 2 mg tablet Take 1-2 tablets every 8 hours as needed for muscle spasm relatedpain HYDROcodone-acetaminophen (NORCO) 5-325 mg per tablet Take 1 tablet by mouth four times daily for 30 days. Take one pill 3-4 times daily as needed for back pain Do not start before August 05, 2021. rosuvastatin (CRESTOR) 10 mg tablet Take 1 tablet by mouth daily at bedtime. hydrOXYzine HCl (ATARAX) 25 mg tablet Take 1 tablet by mouth twice daily as needed for Anxiety. loratadine (CLARITIN) 10 mg tablet Take 1 tablet by mouth once daily as needed. FOR ALLERGY SYMPTOMS fluticasone (FLONASE) 50 mcg/actuation nasal spray place 1 spray into each nostril twice a day Nebulizer Accessories kit 4 kits per month. Dx J44.9 albuterol (PROVENTIL) 2.5 mg /3 mL (0.083 %) nebulizer solution Use 3 mL via nebulizer every 4 hours as needed for Wheezing/Shortness of Breath. Use over 5-15minutes. Cholecalciferol, Vitamin D3, 2,000 unit cap Take 1 capsule by mouth once daily. DULERA 200-5 mcg/actuation inhaler Inhale 2 Puffs as instructed twice daily. VENTOLIN HFA 90 mcg/actuation inhaler Take 2 Puffs by mouth as needed. metoprolol tartrate, short acting, (LOPRESSOR) 25 mg tablet Take 1 tablet by mouth twice daily. HYDROcodone-acetaminophen (NORCO) 5-325 mg per tablet Take 1 tablet by mouth every 6 hours as needed for pain for up to 30 days. Do not start before November 03, 2021. HYDROcodone-acetaminophen (NORCO) 5-325 mg per tablet Take 1 tablet by mouth every 6 hours as needed for pain for up to 30 days. Take one pill 4 times daily as needed for back pain 1 of 2 Rx Do not start before September 04, 2021. FAMILY HISTORY Problem Relation Age of Onset Blood Disease Father Blood Clots Heart Father Kidney Disease Sister Diabetes Sister Hypertension Sister other (Blood Clots) Sister COPD Sister Emphysema Sister other (Blood Clots) Sister Hypertension Sister Hypertension Brother Diabetes Brother Kidney Disease Brother Diabetes Brother Cancer Maternal Grandmother Lung other (Other) Paternal Grandmother with TB. Did not live with patient. Heart Daughter Hypertension Son Colon Cancer Other Nephew Employer And Job Title: No employer specified (Unemployed) Years Of Education Completed: 9 years Marital Status: to Julia with 4 children Social History Tobacco Use Smoking status: Current Every Day Smoker Packs/day: 0.50 Years: 33.00 Pack years: 16.50 Types: Cigarettes Start date: 04/10/1981 Smokeless tobacco: Never Used Tobacco comment: smoking 1 ppd. Vaping Use Vaping Use: Never used Substance Use Topics Alcohol use: No Drug use: No Review of Systems: Review of Systems Constitutional: Positive for activity change, appetite change and fatigue. HENT: Positive for mouth sores, trouble swallowing and voice change. Respiratory: Positive for cough, chest tightness, shortness of breath and wheezing. Cardiovascular: Positive for chest pain and palpitations. Gastrointestinal: Positive for abdominal distention, abdominal pain, constipation and nausea. Change in bowel habits, Heartburn All other systems reviewed and are negative. Are you taking any blood thinners? No Physical Examination: BP 102/62 Pulse 86 Ht 5' 2 (1.58m) Wt 106 lb (48.1kg) BMI 19.38 kg/(m^2). Physical Exam Constitutional: Appearance: Normal appearance. She is normal weight. HENT: Head: Normocephalic and atraumatic. Nose: Nose normal. Eyes: General: No scleral icterus. Extraocular Movements: Extraocular movements intact. Conjunctiva/sclera: Conjunctivae normal. Pupils: Pupils are equal, round, and reactive to light. Cardiovascular: Rate and Rhythm: Normal rate and regular rhythm. Pulses: Normal pulses. Heart sounds: Normal heart sounds. Pulmonary: Effort: Pulmonary effort is normal. Breath sounds: Normal breath sounds. Abdominal: General: Abdomen is flat. Bowel sounds are normal. Palpations: Abdomen is soft. Tenderness: There is abdominal tenderness (epigastric pain on palpation). Musculoskeletal: General: Normal range of motion. Cervical back: Normal range of motion and neck supple. Skin: General: Skin is warm and dry. Coloration: Skin is not jaundiced. Neurological: General: No focal deficit present. Mental Status: She is alert and oriented to person, place, and time. Psychiatric: Mood and Affect: Mood normal. Behavior: Behavior normal. Thought Content: Thought content normal. Judgment: Judgment normal. Assessment/Plan (R10.84) Generalized abdominal pain (primary encounter diagnosis) (K59.09) Chronic constipation (K21.9) Gastroesophageal reflux disease, unspecified whether esophagitis present (Z12.11) Screening for colon cancer (R68.81) Early satiety (R63.4) Weight loss (R13.10) Dysphagia, unspecified type 1. Generalized abdominal pain -- Patient having generalized abdominal pain, worse in epigastric region. Pain is worse after eating. -- Continue Pepcid. Small frequent meals. -- Start Miralax daily to help with constipation -- EGD r/o gastritis, PUD - EGD DIAGNOSTIC; Future 2. Chronic constipation -- Taking Miralax PRN, recommend starting this daily to help facilitate a bowel movement. She will reach out in one week with an update. - polyethylene glycol 3350 (MIRALAX, GLYCOLAX) 17 gram/dose powder; Use as directed for Miralax / Gatorade Bowel Prep Kit Dispense: 238 g; Refill: 0 - Gatorade Sports Drink; Use as directed for Miralax / Gatorade Bowel Prep Kit - Bisacodyl (DULCOLAX) 5 mg tab; Use as directed for Miralax / Gatorade Bowel Prep Kit Dispense: 4 tablet; Refill: 0 - COLONOSCOPY SCREENING; Future 3. Gastroesophageal reflux disease, unspecified whether esophagitis present -- Taking Pepcid BID with some relief. Could not tolerate Prilosec. -- Will plan for EGD for further evaluation. Recommend high protein, high fiber diet. Promotion of salivation through oral lozenges/chewing gum Drink plenty of water Avoid NSAIDs (such as Advil, Ibuprofen, Excedrin, Mobic), tobacco, alcohol, carbonated beverages, caffeine, chocolate, tomato based sauces, spicy/fatty foods, and peppermint Avoid eating less than 3 hours before bed. Elevate the head of the bed 6 inches, or invest in a wedge pillow. Laying on left side with head elevated may help alleviate reflux symptoms. - EGD DIAGNOSTIC; Future 4. Screening for colon cancer -- Last colonoscopy was in 2010, normal. - polyethylene glycol 3350 (MIRALAX, GLYCOLAX) 17 gram/dose powder; Use as directed for Miralax / Gatorade Bowel Prep Kit Dispense: 238 g; Refill: 0 - Gatorade Sports Drink; Use as directed for Miralax / Gatorade Bowel Prep Kit - Bisacodyl (DULCOLAX) 5 mg tab; Use as directed for Miralax / Gatorade Bowel Prep Kit Dispense: 4 tablet; Refill: 0 - COLONOSCOPY SCREENING; Future 5. Early satiety -- Appetite has been poor and notes a lot of early satiety. -- EGD for further evaluation - EGD DIAGNOSTIC; Future 6. Weight loss -- Continues to lose weight due to poor appetite and not feeling well. -- EGD/colonoscopy for further evaluation - EGD DIAGNOSTIC; Future 7. Dysphagia, unspecified type -- Solid foods are sticking in her lower esophagus, does have to regurgitate at times. -- EGD for further evaluation - EGD DIAGNOSTIC; Future Follow up in office 3 months/PRN. Recommended to please call office/go to ER if fever, chills, chest pain, SOB, diarrhea, nausea, emesis, worsening abdominal pain, dehydration occurs I spent 25 minutes in the visit, with more than 50% of the total [id number] time of the visit in counseling / coordination of care. I have confirmed and edited as necessary, the PFSH and ROS obtained by others. Domitila Lara PA-C December 01, 2021 12:01 PM documented [facility] Miscellaneous Notes* Telephone Encounter - Amparo Guillermo - 12/01/2021 9:35 AM EDT I do not show in your last OV note, it saying anything about coming in for a pill count. Did you need her to come in? Please advise Amparo Guillermo [employer] [place] to Dr Smith, Alyse Martin PA-C [facility] [place] [address] [facility] [address] [place] [address] P: [phone] ext [phone] F: [phone] * Telephone Encounter - Amparo Guillermo - 12/01/2021 9:35 AM EDT ----- Message from Talia Dunham sent at 11/28/2021 1:59 PM EDT ----- Regarding: Prescriptions / [Otto Paul MD] / [No availability] Subject Line Format: Prescriptions / [Otto Paul MD] / [No availability] Patient has been identified by name and Date of (Y/N): Yes Patient: Jessica Gloria Date of : 1955 Provider for this encounter: Ankit Martinez MD Reason for the call/escalation: Patient says she was told she would receive a call by 11/27 to schedule a pill count prior to 12/03, when prescription expires. Please contact patient to assist with an appointment. Was an appointment scheduled (Y/N): N/A Reason patient was requesting visit (RFV/signs and symptoms/diagnosis) : N/A Person calling if other than patient: N/A Return call to if other than patient: N/A Best contact number: [phone] Thank you, Talia Dunham November 28, 2021 2:00 PM documented in this [facility]05-31-[facility]22 Instructions* Patient Instructions* Lillie Bran APRN.CNP - 11/25/2021 1:51 PM EDT Activity as tolerated Use Ice and/or heat as tolerated as needed documented in this encounterKn[facility]05-[facility]22 History of Present illness Narrative* Lillie Bran APRN.CNP - 11/25/2021 1:47 PM EDT AMBULATORY TELEPHONE VISIT Jessica Gloria has consented to this telephone encounter. Persons Present: patient Chief Complaint/Reason: Injection Follow up HPI: Patient underwent Cervical RFA RIGHT C3/4, C4/5, C5/6 on 11/07/[address] Paul. Patient reports ~50% relief from the injection. She continues to have some relief on RIGHT. During this time thepatient was able to tolerate and participate in their ADL's with less pain and difficulty. She currently has complaints of LEFT side of her neck. States a couple days after her injection she developed SOB and was in the hospital for this, she isnow on antibiotic therapy. States she does not feel better as of now. Today the patient rates her pain 5/10, describes pain as constant dull ache pain Denies new or worsening concerns today. Ht 157.5 cm (5' 2 ) Wt 50.3 kg (111 lb) BMI 20.30 kg/m AG SPINE COMBINATION 02/06/2021 Questionnaire Opiod Risk Tool Completed Date 02/06/2021 Data Reviewed: Most recent imaging Assessment: (M47.812) Cervical spondylosis without myelopathy (primary encounter diagnosis) (G89.29) Other chronic pain Patient reports ~50% meaningful relief with recent Cervical RFA RIGHT C3/4, C4/5, C5/6. Plan: Patient is scheduled for Cervical RFA LEFT C3/4, C4/5, C5/6 on 12/10/21. Proceed with injections asscheduled for now, however if she is not recovering from her current illness then advise she post-pone her injection. States she did test negative for COVID. She has PFT scheduled for tomorrow and follow up with her crepe maker on 12/04/21. In the interim continue activity as tolerated, heat or ice therapy. Patient needs follow up evaluation for medication refills. Patient is happy and agreeable with this plan. All questions were answered and patient verbalized understanding. Total Time Spent: 15 minutes Lillie Bran APRN.CONFIDENTIAL SECRETARY Review of Systems Constitutional: Positive for fatigue. Negative for chills, fever and unexpected weight change. HENT: Negative for congestion and sore throat. Eyes: Negative for visual disturbance. Respiratory: Positive for cough and shortness of breath. Cardiovascular: Negative for chest pain. Gastrointestinal: Negative for abdominal pain, constipation, nausea and vomiting. Genitourinary: Negative for decreased urine volume and difficulty urinating. Musculoskeletal: Negative for arthralgias and joint swelling. Skin: Negative for rash. Neurological: Negative for dizziness, light-headedness and headaches. Hematological: Does not bruise/bleed easily. Psychiatric/Behavioral: Negative for agitation, decreased concentration and sleep disturbance. The patient is not nervous/anxious. MRI Spine Report No resulted procedures found. PDMP website checked and validated. All prescriptions have been APPROPRIATELY filled. No suspiciousactivity was identified. 11/25/2021 by Lillie Bran APRN.CNP documented in this encounterKn[facility]05-25-[facility]22 Instructions* Patient Instructions* Magalys Mckeon APRN.CNP - 11/19/2021 10:21 AM EDT 1.) Start Zpack and finish the prednisone. Get labs completed. 2.) Recommend taking Mucinex to help with chest congestion. 3.) Use nebulizer as needed for shortness of breath or wheezing. 4.) Get repeat chest xray if you start to feel worse. 5.) Keep all scheduled appointments/testing with pulmonology. 6.) Red flag symptoms go to ER. 7.) Follow up pending test results or sooner as needed. documented in this encounterKn[facility]05-[facility]22 History of Present illness Narrative* Magalys Mckeon APRN.CNP - 11/19/2021 10:00 AM EDT This is a 66 year old female who presents today with: Patient presents with: Transition Of Care HISTORY OF PRESENT ILLNESS: Jessica Gloria is a 66 year old female. Patient presents with: Transition Of Care The patients TCM visit was performed within the 7 days of discharge. Patient's Date of discharge: 11/12/2021 Date of initial coordinator contact after discharge: 11/13/2021 Discharge diagnosis: COPD exacerbation, chronic respiratory failure, chronic back pain Medication review completed Yes HOSPITAL/ER FOLLOW UP: Reason for visit: SOB, chest discomfort. Which facility: [facility] ER Date of visit: 11/10/2021-11/12/2021 Diagnosis: COPD Exacerbation Testing done: Xray no acute process with underlying emphysema/COPD. CBC showed elevated neutrophil percent 84.2, mild elevation in glucose 104. Treatment given: DuoNeb and Solu-Medrol. Current symptoms: Still having ongoing cough, SOB and weakness. Decreased appetite which has been ongoing. Eating smaller meals. Smoking 1/2 PPD. Using 2L NC at night. Seeing Pulmonolgy at [facility], Dr. Owen. Will be having PFT in November and CT. Coughing up white thick mucus. Finishing prednisone taper. PAST MEDICAL HISTORY: PAST MEDICAL HISTORY Diagnosis Date Acid reflux Back pain COPD (chronic obstructive pulmonary disease) ([facility]) 2016 FEV1 0.95L, 40% pred. COPD (chronic obstructive pulmonary disease) ([facility]) Kidney stones Osteopenia frax score 4% hip fracture risk 2016 start fosamax repeat imaging 1-2 years Unspecified asthma(493.90) PAST SURGICAL HISTORY Procedure Laterality Date COLONOSCOPY FLX DX W/COLLJ SPEC WHEN PFRMD 05/27/2011 Colonoscopy CYSTO CALIBRATION DILAT URTL STRIX/STENOSIS N/A 11/22/2018 LAPAROSCOPY SURG CHOLECYSTECTOMY 2005 Cholecystectomy, lap LIG/TRNSXJ FLP TUBE ABDL/VAG APPR UNI/BI Tubal ligation LITHOTRIPSY XTRCORP SHOCK WAVE Lithotripsy LUNG BIOPSY PAST SURGICAL HISTORY OF 1982 lung biopsy PAST SURGICAL HISTORY OF Right 05/2020 CT guided biopsy on Lung. Dr. Owen SLING OPER STRES INCONTINENCE 08/2011 ALLERGIES Bactrim [Sulfamethoxazole-Trimethoprim], Penicillins, Zoloft [Sertraline Hcl], Ipratropium, Tudorza Pressair [Aclidinium [place]], Cymbalta [Duloxetine], Elavil [Amitriptyline], Gabapentin,Incruse Ellipta [Umeclidinium], Levofloxacin, Lyrica [Pregabalin], Methylprednisone, and Doxycycline MEDICATIONS Current Outpatient Medications Medication Sig METOPROLOL SUCCINATE ORAL Take by mouth. metoprolol tartrate, short acting, (LOPRESSOR) 25 mg tablet Take 1 tablet by mouth twice daily. famotidine (PEPCID) 20 mg tablet Take 1 tablet by mouth twice daily. escitalopram oxalate (LEXAPRO) 5 mg tablet Take 2.5 mg daily for 2 weeks, then go to 5 mg daily if tolerated polyethylene glycol 3350 (MIRALAX) 17 gram/dose powder Take 17 g by mouth once daily. As needed forconstipation tiZANidine (ZANAFLEX) 2 mg tablet Take 1-2 tablets every 8 hours as needed for muscle spasm relatedpain diclofenac, EC, (VOLTAREN) 75 mg EC tablet Take 1 tablet by mouth twice daily. HYDROcodone-acetaminophen (NORCO) 5-325 mg per tablet Take 1 tablet by mouth every 6 hours as needed for pain for up to 30 days. Do not start before November 03, 2021. diclofenac, EC, (VOLTAREN) 75 mg EC tablet take 1 tablet by mouth twice a day for 14 days HYDROcodone-acetaminophen (NORCO) 5-325 mg per tablet Take 1 tablet by mouth every 6 hours as needed for pain for up to 30 days. Take one pill 4 times daily as needed for back pain 1 of 2 Rx Do not start before September 04, 2021. (Patient not taking: Reported on 11/07/2021) HYDROcodone-acetaminophen (NORCO) 5-325 mg per tablet Take 1 tablet by mouth four times daily for 30 days. Take one pill 3-4 times daily as needed for back pain Do not start before August 05, 2021. (Patient not taking: Reported on 11/07/2021) rosuvastatin (CRESTOR) 10 mg tablet Take 1 tablet by mouth daily at bedtime. levoFLOXacin (LEVAQUIN) 750 mg tablet Take 750 mg by mouth once daily. hydrOXYzine HCl (ATARAX) 25 mg tablet Take 1 tablet by mouth twice daily as needed for Anxiety. loratadine (CLARITIN) 10 mg tablet Take 1 tablet by mouth once daily as needed. FOR ALLERGY SYMPTOMS HYDROcodone-acetaminophen (NORCO) 5-325 mg per tablet Take 1 tablet by mouth every 6 hours as needed for Pain for up to 8 days. Take one pill 4 times daily as needed for back pain Do not start beforeOctober 02, 2020. (Patient not taking: Reported on 11/07/2021) fluticasone (FLONASE) 50 mcg/actuation nasal spray place 1 spray into each nostril twice a day Nebulizer Accessories kit 4 kits per month. Dx J44.9 albuterol (PROVENTIL) 2.5 mg /3 mL (0.083 %) nebulizer solution Use 3 mL via nebulizer every 4 hours as needed for Wheezing/Shortness of Breath. Use over 5-15minutes. Cholecalciferol, Vitamin D3, 2,000 unit cap Take 1 capsule by mouth once daily. DULERA 200-5 mcg/actuation inhaler Inhale 2 Puffs as instructed twice daily. VENTOLIN HFA 90 mcg/actuation inhaler Take 2 Puffs by mouth as needed. Current Facility-Administered Medications Medication Dose Route Frequency perflutren lipid microspheres 1.3 mL in NaCl (PF) 0.9% 10 mL injection (DEFINITY) INTRAVENOUS DIRECTED PRN sodium chloride 0.9 % (flush) 10 mL (BD POSIFLUSH) 10 mL INTRAVENOUS DIRECTED PRN FAMILY HISTORY Problem Relation Age of Onset Blood Disease Father Blood Clots Heart Father Kidney Disease Sister Diabetes Sister Hypertension Sister other (Blood Clots) Sister COPD Sister Emphysema Sister other (Blood Clots) Sister Hypertension Sister Hypertension Brother Diabetes Brother Kidney Disease Brother Diabetes Brother Cancer Maternal Grandmother Lung other (Other) Paternal Grandmother with TB. Did not live with patient. Heart Daughter Hypertension Son Social History Tobacco Use Smoking status: Current Every Day Smoker Packs/day: 1.00 Years: 33.00 Pack years: 33.00 Types: Cigarettes Start date: 04/10/1981 Smokeless tobacco: Never Used Tobacco comment: smoking 1 ppd. Vaping Use Vaping Use: Never used Substance Use Topics Alcohol use: No Drug use: No REVIEW OF SYSTEMS GENERAL: + Fatigue HEENT: Negative for frequent or significant headaches, No changes in hearing or vision. NECK: Negative for lumps, goiter, pain and significant neck swelling RESPIRATORY: + SOB/Cough CARDIOVASCULAR: Negative for chest pain, leg swelling, orthopnea, or palpitations GI: No nausea, vomiting, or diarrhea/constipation. No hematochezia/melena. No heartburn or reflux symptoms. : No history of dysuria, frequency or incontinence MUSCULOSKELETAL: Negative for joint pain or swelling. SKIN: Negative for lesions, rash, and itching ENDOCRINE: Negative for cold or heat intolerance, polyuria, polydipsia and goiter NEURO: No history of headaches, syncope, paralysis, seizures or tremors MOOD: Negative for depression, anxiety, or suicidal ideation. EXAM: BP 120/80 Pulse 85 Resp 24 Wt 50.3 kg (111 lb) SpO2 89% BMI 20.30 kg/m PHYSICAL EXAM: General Appearance: Well appearing, alert, in no acute distress, well-hydrated, well nourished. Skin: Skin color, texture, turgor normal, no suspicious rashes or lesions. Head: Normocephalic, no masses, lesions, tenderness or abnormalities. Eyes: Anicteric sclera. Pupils are equally round and reactive to light. Extraocular movements are intact. Lungs: Positive findings: wheezing throughout. Heart: RRR without murmur, gallop, or rubs. No ectopy. Extremities: No deformities, edema, skin discoloration, clubbing or cyanosis. Good capillary refill. Peripheral Pulses: Normal, Capillary refill <2secs, strong peripheral pulses, Pulses palpable. ASSESSMENT/PLAN: 1. Hospital discharge follow-up - ICD9: V67.59, ICD10: Z09 (primary diagnosis) - Having on going respiratory symptoms since hospital discharge. 2. Acute bronchitis with chronic obstructive pulmonary disease (COPD) ([facility]) - ICD9: 491.22, ICD10: J44.0, J20.9 - Start Z pack. - Recommend using nebulizer for SOB and wheezing. - Continue to take prednisone until gone. - If symptoms do not improve recommend repeat chest xray. - Keep scheduled appointments with pulmonology. - Red flag symptoms go to ER. - Try to cut back on cigarette use. - XR CHEST 2V FRONTAL/LAT - AZITHROMYCIN 250 MG TABLET 3. Fatigue, unspecified type - ICD9: 780.79, ICD10: R53.83 - CBC + DIFF - COMP METABOLIC PANEL Follow-up pending test results or sooner as needed. Discussed treatment plan and patient voices understanding. Patient's questions answered appropriately. Medications and potential side effects were discussed and patient voices understanding. Magalys Mckeon APRN.DANIELLA This note was partially generated using [employer] voice recognition system. Note was reviewed for accuracy. There may be minor misspellings or grammar miscues with [employer] voice recognition. [facility] Discharge instructions Patient Education 11/12/2021 14:08:17 Chronic Obstructive Pulmonary Disease Exacerbation, [id number] Chronic Obstructive Pulmonary Disease Exacerbation Chronic obstructive pulmonary disease (COPD) is a long-term (chronic) lung problem. In COPD, the flow of air from the lungs is limited. COPD exacerbations are times that breathing gets worse and you need more than your normal treatment. Without treatment, they can be life threatening. If they happen often, your lungs can become more damaged. If your COPD gets worse, your doctor may treat you with: Medicines. Oxygen. Different ways to clear your airway, such as using a mask. Follow these instructions at home: Medicines Take pdvy-ude-pyqgydx and prescription medicines only as told by your doctor. If you take an antibiotic or steroid medicine, do not stop taking the medicine even if you start tofeel better. Keep up with shots (vaccinations) as told by your doctor. Be sure to get a yearly (annual) flu shot. Lifestyle Do not smoke. If you need help quitting, ask your doctor. Eat healthy foods. Exercise regularly. Get plenty of sleep. Avoid tobacco smoke and other things that can bother your lungs. Wash your hands often with soap and water. This will help keep you from getting an infection. If you cannot use soap and water, use hand supervisor photoengraving. During flu season, avoid areas that are crowded with people. General instructions Drink enough fluid to keep your pee (urine) clear or pale yellow. Do not do this if your doctor hastold you not to. Use a cool mist machine (vaporizer). If you use oxygen or a machine that turns medicine into a mist (nebulizer), continue to use it as told. Follow all instructions for rehabilitation. These are steps you can take to make your body work better. Keep all follow-up visits as told by your doctor. This is important. Contact a doctor if: Your COPD symptoms get worse than normal. Get help right away if: You are short of breath and it gets worse. You have trouble talking. You have chest pain. You cough up blood. You have a fever. You keep throwing up (vomiting). You feel weak or you pass out (faint). You feel confused. You are not able to sleep because of your symptoms. You are not able to do daily activities. Summary COPD exacerbations are times that breathing gets worse and you need more treatment than normal. COPD exacerbations can be very serious and may cause your lungs to become more damaged. Do not smoke. If you need help quitting, ask your doctor. Stay up-to-date on your shots. Get a flu shot every year. This information is not intended to replace advice given to you by your health care provider. Make sure you discuss any questions you have with your health care provider. Document Released: 06/02/2012 Document Revised: 05/27/2018 Document Reviewed: 07/19/2017 [employer] Patient Education 2019 SwitchNote. Follow Up Care 11/10/2021 11:29:03 With:ANKIT MARTINEZ MD Address: [address] [place] [address]- When:11/19/2021 10:00:00 Comments:Follow-up as scheduled [facility] 05-18-2022 History of Present illness Narrative* Halley Doherty LPN - 11/12/2021 2:35 PM EDT TRANSITION CARE MANAGEMENT (TCM) INITIAL CONTACT [employer] Outreach Provider Action/FYI: Pt taking Metoprolol 25 md daily. O2 at 2L at HS Initial contact with patient post discharge, spoke to patient. Patient identified by name and .YES TRANSITION CARE MANAGEMENT INITIAL OUTREACH DOCUMENTATION: No flowsheet data found. SUMMARY: -Pt discharged from [facility] on 11/12/21. -Admitted for: COPD Exacerbatiion Do you have a hospital follow up appointment with your PCP? Appointment on 11/19/21 with Sage Mckeon Yes. Remind patient of appointment date, time, and location. If not within 14 calendar days of discharge - please reschedule accordingly. MEDICATIONS: Many patients have questions or concerns about their medications once they are home. Were you prescribed any new medications? If yes, what are those medications? Mucinex 600mg, prednisone 10 mg taper Were you told to hold any medications? No Were any of your medications discontinued? No Do you have any questions about getting or taking your medications? No Your discharge instructions/After visit Summary (AVS) are important in guiding you through the recovery process. Is there anything I might help you understand? No Do you have all the necessary equipment and supplies at home? No, follow site specific process to secure durable medical equipment and/or supplies for the patient, handoff to RN/FOOD AND BEVERAGE ASSISTANT, or LIP YES Medical records from recent hospitalization: Requested from outside hospital [facility] Evaluation + Plan note Extracted from: Title:History and Physical Author:LAKISHA ROBERTSON APRN-CONFIDENTIAL SECRETARY Date:11/10/21 1. COPD exacerbation 2. Chronic respiratory failure 3. Chronic back pain COPD exacerbation- Add Solu-Medrol 60mg q8h, inhaled bronchodilators, mucinex, and encourage incentive spirometers. No change in sputum. Pt did have a low grade fever, no leukocytosis. Will check for Covid due to multiple recent sick contacts. Chronic respiratory failure- Pt uses O2 via NC at 2L chronically. Chronic back pain-Continue home dose of [place]. I have reviewed the [place] Automated Rx Reporting System (OARRS) report for this patient for refill pattern and other prescriber involvement as part of the appropriate surveillance for the provision of acute and chronic controlled medications. The report was requested and reviewed on the date of this entry, and was considered in the prescribing process. DVT prophylaxis: SCDs Labs, diagnostics, and progress notes reviewed as noted in HPI Code Status: Full code Plan of care discussed with patient. All questions answered. Patient verbalizes understanding is agreeable to plan of care. Discussed with collaborating physician, Dr. Felix. This dictation was performed using voice recognition software and may include grammatical and/or spelling errors. Addendum by ANGEL FELIX MD on November 10, 2021 15:49:39 EDT Discussed patient with Lakisha Brewster Collaborating physician Dr. Angel Felix [facility] 05-13-2022 History and physical note* Jacob Chapman LPN - 11/07/2021 10:39 AM EDT Dressing dry and intact, no drainage noted. The patient denies numbness, tingling, weakness, shortness of breath, dizziness or headache. Pain level 2/10. Patient given discharge instructions and escorted to transportation via ambulatory method. Patient left in good condition. Jacob Chapman LPN [facility] History of Present illness Narrative* Otto Paul MD - 11/07/2021 9:35 AM EDT [facility] Date: 11/06/2021 Patient name: Jessica Gloria Physician performing procedure: Otto Paul MD, PhD Procedure: Radiofrequency Ablation (RFA) - Cervical Medial Branches under fluoroscopic guidance Levels Treated: Right C3-4,C4-5,C5-6 Facet Joint Nerves, aka Medial Branch(es) Approach: AP, Lateral Injectate: A total of 4cc, consisting of 1cc of Dexamethasone (10mg/cc) and 3cc of 2% Lidocaine (1ml per site) Improvement after today's procedure: as per nursing report Diagnosis: (M47.812) Cervical spondylosis without myelopathy (primary encounter diagnosis) Comments: Methylprednisone allergy listed in patients record, pt reports mylagias with methylprednisone. Pt has tolerated Dexamethasone well during her RFA procedures. HPI: Jessica Gloria is an 66 year old FEMALE with asthma, COPD, nephrolithiasis and osteopenia with upper thoracic back pain and neck pain who presents today for elective radiofrequency ablation of the cervical medial branches for symptomatic relief. With regards to her cervical spine pain, patient underwent bilateral cervical MBBs at C3/4, C4/5, C5/6 on 03/31/21 bilaterally with 80% relief for 6 hours. She reported improvement in pain control as well as increased ability to move her neck with more fluid ROM. She underwent left cervical MBBs at C3/4, C4/5, C5/6 on 05/01 with 100% relief for 3 hours during the anesthetic phase. She subsequently underwent MBBs on the right side on 05/16/21 with 100% relief for 4-6 hours. She unfortunately had her cervical RFA deferred on 05/30/21 due to pt having significant upper respiratory symptoms including a cough that prevented her from maintaining a prone position for her procedure and c/f for ongoing infection. Due to the positive diagnostic response that she has had after 2 sets of cervical MBB's,plan was made to proceed with cervical RFA for cervical spondylosis/cervical facet arthropathy. Shefurther reports radicular pain from the neck down the lateral aspect of the arm into digits 3 and 4on the L arm which also improved with her diagnostic MBBs. If she does not have benefit from cervical RFA will consider MRI C-spine to assess for any disc related pathology which may be contributing to her symptoms. Patient further reports 100% relief of left-sided thoracic spine pain and 50-60% relief of right-sided pain after thoracic RFA at T5-6, T6-7 and T7-8. She reports good control of her thoracic spine pain at this time. With regard to medications, patient is on hydrocodone acetaminophen 5 325mg TID vs QID with good pain control on this regimen, with improvement in her ability to carry out her ADLs/IADLs without significant nausea/vomiting/constipation/sedation on this regimen. Due to this, plan was made to continue this regimen moving forward as she undergoes further treatment of her cervical and thoracic spondylosis. Patient otherwise denies fevers, chills, weakness, saddle anesthesia, bowel or bladder incontinenceor recent antibiotic or anticoagulant use. ? Review of Systems: ? Pertinent Positives: MSK: pain in the region being treated ? Neuro: No weakness or numbness in the region being treated ? Skin: Negative (No itching) ? Eyes: Negative (No blurred or double vision) ? Respiratory: Negative (No Cough, Vwqqjjvxd-mx-xsttmh, Dyspnea on exertion, wheezing) ? Cardiovascular: Negative (No Chest Pain, Tightness, Pressure, Palpitations) ? Gastrointestinal: Negative (No Abdominal pain, Nausea, Vomiting, Constipation, Diarrhea) ? Genitourinary: Negative (No dysuria) ? Hematologic: Negative (No bleeding, bruising) ? OB: is Denied or Not Applicable ? Endocrine: Negative (No hot/cold intolerance) ? Psychiatric: Negative (No depression, anxiety or suicidal ideation) ALLERGIES Allergen Reactions Bactrim [Sulfametho* Other: See Comments [place] sick, barely could breath. [place] deathly sick . GI upset Penicillins Anaphylaxis As a child passed out in md office after PCN injection. Zoloft [Sertraline * GI Upset GI upset, chest burning, muscle ache Ipratropium Other: See Comments Blurry vision, abdominal cramping, tremor, headache. Tudorza Pressair [A* Other: See Comments Heart palpitations, blurry vision, abdominal cramping, tremor, headache. Cymbalta [Duloxetin* Intolerance panic Elavil [Amitriptyli* Intolerance GI upset, chest burning Gabapentin Intolerance Cough, sob, anxiety, increased drowsiness Incruse Ellipta [Um* Other: See Comments Heart palpitations, blurry vision, abdominal cramping, tremor, headache. Levofloxacin Other: See Comments pressure in head. Feel like she is going to throw up and pass out. Lyrica [Pregabalin] Other: See Comments Chest discomfort,burping,sob Methylprednisone Myalgia Doxycycline Mental Status Change Makes her feel spacey . If given abx prefer to use this one out of all with the least amount of side effects. Current Outpatient Medications on File Prior to Visit Medication Sig metoprolol tartrate, short acting, (LOPRESSOR) 25 mg tablet Take 1 tablet by mouth twice daily. famotidine (PEPCID) 20 mg tablet Take 1 tablet by mouth twice daily. escitalopram oxalate (LEXAPRO) 5 mg tablet Take 2.5 mg daily for 2 weeks, then go to 5 mg daily if tolerated polyethylene glycol 3350 (MIRALAX) 17 gram/dose powder Take 17 g by mouth once daily. As needed forconstipation tiZANidine (ZANAFLEX) 2 mg tablet Take 1-2 tablets every 8 hours as needed for muscle spasm relatedpain diclofenac, EC, (VOLTAREN) 75 mg EC tablet Take 1 tablet by mouth twice daily. HYDROcodone-acetaminophen (NORCO) 5-325 mg per tablet Take 1 tablet by mouth every 6 hours as needed for pain for up to 30 days. Do not start before November 03, 2021. diclofenac, EC, (VOLTAREN) 75 mg EC tablet take 1 tablet by mouth twice a day for 14 days HYDROcodone-acetaminophen (NORCO) 5-325 mg per tablet Take 1 tablet by mouth every 6 hours as needed for pain for up to 30 days. Take one pill 4 times daily as needed for back pain 1 of 2 Rx Do not start before September 04, 2021. HYDROcodone-acetaminophen (NORCO) 5-325 mg per tablet Take 1 tablet by mouth four times daily for 30 days. Take one pill 3-4 times daily as needed for back pain Do not start before August 05, 2021. rosuvastatin (CRESTOR) 10 mg tablet Take 1 tablet by mouth daily at bedtime. levoFLOXacin (LEVAQUIN) 750 mg tablet Take 750 mg by mouth once daily. hydrOXYzine HCl (ATARAX) 25 mg tablet Take 1 tablet by mouth twice daily as needed for Anxiety. loratadine (CLARITIN) 10 mg tablet Take 1 tablet by mouth once daily as needed. FOR ALLERGY SYMPTOMS HYDROcodone-acetaminophen (NORCO) 5-325 mg per tablet Take 1 tablet by mouth every 6 hours as needed for Pain for up to 8 days. Take one pill 4 times daily as needed for back pain Do not start beforeApr2020. fluticasone (FLONASE) 50 mcg/actuation nasal spray place 1 spray into each nostril twice a day Nebulizer Accessories kit 4 kits per month. Dx J44.9 albuterol (PROVENTIL) 2.5 mg /3 mL (0.083 %) nebulizer solution Use 3 mL via nebulizer every 4 hours as needed for Wheezing/Shortness of Breath. Use over 5-15minutes. Cholecalciferol, Vitamin D3, 2,000 unit cap Take 1 capsule by mouth once daily. DULERA 200-5 mcg/actuation inhaler Inhale 2 Puffs as instructed twice daily. VENTOLIN HFA 90 mcg/actuation inhaler Take 2 Puffs by mouth as needed. Current Facility-Administered Medications on File Prior to Visit Medication perflutren lipid microspheres 1.3 mL in NaCl (PF) 0.9% 10 mL injection (DEFINITY) sodium chloride 0.9 % (flush) 10 mL (BD POSIFLUSH) ? PAST MEDICAL HISTORY Diagnosis Date Acid reflux Back pain COPD (chronic obstructive pulmonary disease) ([facility]) 2016 FEV1 0.95L, 40% pred. COPD (chronic obstructive pulmonary disease) ([facility]) Kidney stones Osteopenia frax score 4% hip fracture risk 2017 start fosamax repeat imaging 1-2 years Unspecified asthma(493.90) PAST SURGICAL HISTORY Procedure Laterality Date COLONOSCOPY FLX DX W/COLLJ SPEC WHEN PFRMD 05/27/2011 Colonoscopy CYSTO CALIBRATION DILAT URTL STRIX/STENOSIS N/A 11/22/2018 LAPAROSCOPY SURG CHOLECYSTECTOMY 2005 Cholecystectomy, lap LIG/TRNSXJ FLP TUBE ABDL/VAG APPR UNI/BI Tubal ligation LITHOTRIPSY XTRCORP SHOCK WAVE Lithotripsy LUNG BIOPSY PAST SURGICAL HISTORY OF 1981 lung biopsy PAST SURGICAL HISTORY OF Right 05/2020 CT guided biopsy on Lung. Dr. Brayden ALONSO OPER STRES INCONTINENCE 08/2011 FAMILY HISTORY Problem Relation Age of Onset Blood Disease Father Blood Clots Heart Father Kidney Disease Sister Diabetes Sister Hypertension Sister other (Blood Clots) Sister COPD Sister Emphysema Sister other (Blood Clots) Sister Hypertension Sister Hypertension Brother Diabetes Brother Kidney Disease Brother Diabetes Brother Cancer Maternal Grandmother Lung other (Other) Paternal Grandmother with TB. Did not live with patient. Heart Daughter Hypertension Son Social History Tobacco Use Smoking status: Current Every Day Smoker Packs/day: 1.00 Years: 33.00 Pack years: 33.00 Types: Cigarettes Start date: 04/10/1981 Smokeless tobacco: Never Used Tobacco comment: smoking 1 ppd. Vaping Use Vaping Use: Never used Substance Use Topics Alcohol use: No Drug use: No Attestation Information obtained by others were confirmed and edited as necessary on 11/06/2021 by Otto Paul MD. ? Objective Exam: ? Vitals: As per nursing documentation ? Constitutional: Normal Appearance, Oriented to Time, Place and Person ? Head: No lacerations, no external signs of trauma ? Eyes: Conjunctiva clear. No discharge from the eyes ? Cardiovascular: Appears well-perfused ? Pulmonary: Non-labored respirations ? Abdominal: Non-distended ? Skin: No visible rashes or ecchymosis ? Psychiatric: Mood appropriate for given condition ? Neurological: no focal deficits, gross movements are limited by pain, but otherwise unremarkable ? Data Reviewed: Nursing note and vitals reviewed. Additional imaging reviewed as appropriate Assessment and Plan: We discussed their current plan and the pathology responsible for the patient's pain. Specific counseling related to the procedure was provided regarding the risks, benefits and alternatives. The patient wishes to proceed with the plan as noted above. Encounter Diagnosis ICD-10-CM 1. Cervical spondylosis without myelopathy M47.812 UNIVERSAL PROTOCOL / SAFETY CHECKLIST Procedure to be Performed: as stated above Sign In: A Moment of CARE was completed. Personnel directly involved with the procedure wore the appropriate PPE (Personal Protective Equipment). Patient/Surrogate Stated/Verified: PATIENT VERIFIED(optional for EMERGENT procedures): Patient name, Date of , Relevant allergies and The intended procedure Time Out Communication: Intended patient and procedure match the source documents. Consent documented and matches the intended procedure. Relevant labs, photos, and/or imaging studies have been reviewed. Medications required for procedure verified. Sign Out: SIGN OUT (optional for EMERGENT procedures): No specimen collected. Otto Paul MD Time out to confirm patient name, date of , procedure site, laterality, and allergies performed by physician. Please see nursing note for exact times (time out, procedure start, procedure end). [facility] protocol documentation / Pre-Procedure checklist: ? Unless stated otherwise in the procedure note, the risks include but are not limited to infection, allergic reaction, increased pain, lack of therapeutic benefit, steroid reaction, nerve damage, paralysis, stroke, epidural hematoma, syncope, headache, respiratory or cardiac arrest, pneumothorax, and scar formation ? Time Out was led by the physician in the procedure room, with the patient and all staff present and participating ? The following information was verified: name, date of , procedure site (marked), laterality,anticoagulants and allergies [facility] protocol documentation / Pre-Procedure Checklist: ? Consent: Obtained in writing prior to procedure ? Unless stated otherwise in the procedure note, the risks include but are not limited to infection, allergic reaction, increased pain, lack of therapeutic benefit, steroid reaction, nerve damage, paralysis, stroke, epidural hematoma, syncope, headache, respiratory or cardiac arrest, pneumothorax, and scar formation ? Once the plan was agreed upon, the patient gave written consent to proceed and was transported into the procedure room ? Surgical/Procedure pause or Time Out : ? Time Out was led by the physician in the procedure room, with the patient and all staff present and participating ? The following information was verified during the Time Out process: Patient name, patient date ofbirth, procedure site (marked), laterality, anticoagulants and allergies Anticoagulants: reviewed with patient, notable for: none DESCRIPTION OF PROCEDURE: The patient was brought to the procedure room and positioned in the prone position. The area of thecervical spine was prepped with ChloraPrep and draped into a sterile field. Fluoroscopy was used to identify the the lateral masses of the above noted cervical levels, with the initial target being the midpoint of the waist of the respective articular pillars. Skin anesthesia was achieved using 1 ml of Lidocaine 1% over each injection site. A 22 gauge, 100 mm (5mm active tip) curved RF needle was then slowly inserted at each level in a posterolateral approach and directed to each target site using AP, oblique and lateral fluoroscopic imaging. Using a posterolateral approach, final needle placement was confirmed on lateral imaging, with the target site being the center of the articular pillar after a true lateral was obtained by superimposing the articular pillars in lateral projection. No paresthesias were noted. At each level, sensory stimulation at 50Hz below 0.7V was achieved with neck and trapezius discomfort but no arm or leg paresthesias. Motor stimulation was then carried out at 2Hz up to 2.0V which did not cause any radicular symptoms or motor stimulation in the upper extremities. After negative aspiration, 1 ml of 2% lidocaine was administered at each level prior to initiation of treatment. Radiofrequency lesioning was performed for 90 seconds at 80 degrees Celsius x2 at each level. Following treatment, the above mentioned injectate was administered in divided doses at each site. The needles were removed and bleeding was nil. A sterile dressing was applied. Please see the nursing note for exact times (time out, procedure start, procedure end). After careful removal of the needle, there was minimal bleeding. The injection site was covered with appropriate sterile dressing. The patient was noted to have tolerated the procedure well and was discharged after an appropriate period of post-procedure observation. The patient was instructed to contact us if there were any complications. The patient was advised to follow-up with the requesting physician within one to two weeks or as per their requested follow-up plan. Post procedure visit summary with written instructions was offered to the patient. Otto Paul MD, PhD Pain Management [facility] * Louis Holguin MA - 11/07/2021 9:08 AM EDT Subjective HPI Review of Systems Constitutional: Negative for chills and fever. Eyes: Negative for blurred vision and double vision. Gastrointestinal: Negative for nausea and vomiting. Genitourinary: Negative for dysuria. Musculoskeletal: Positive for back pain, joint pain and neck pain. Neurological: Positive for dizziness. Negative for tingling and headaches. Endo/Heme/Allergies: Does not bruise/bleed easily. Psychiatric/Behavioral: Negative for depression and suicidal ideas. The patient is nervous/anxious. PAST MEDICAL HISTORY Diagnosis Date Acid reflux Back pain COPD (chronic obstructive pulmonary disease) ([facility]) 2016 FEV1 0.95L, 40% pred. COPD (chronic obstructive pulmonary disease) ([facility]) Kidney stones Osteopenia frax score 4% hip fracture risk 2017 start fosamax repeat imaging 1-2 years Unspecified asthma(493.90) PAST SURGICAL HISTORY Procedure Laterality Date COLONOSCOPY FLX DX W/COLLJ SPEC WHEN PFRMD 05/27/2011 Colonoscopy CYSTO CALIBRATION DILAT URTL STRIX/STENOSIS N/A 11/22/2018 LAPAROSCOPY SURG CHOLECYSTECTOMY 2005 Cholecystectomy, lap LIG/TRNSXJ FLP TUBE ABDL/VAG APPR UNI/BI Tubal ligation LITHOTRIPSY XTRCORP SHOCK WAVE Lithotripsy LUNG BIOPSY PAST SURGICAL HISTORY OF 1981 lung biopsy PAST SURGICAL HISTORY OF Right 05/2020 CT guided biopsy on Lung. Dr. Brayden ALONSO OPER STRES INCONTINENCE 08/2011 FAMILY HISTORY Problem Relation Age of Onset Blood Disease Father Blood Clots Heart Father Kidney Disease Sister Diabetes Sister Hypertension Sister other (Blood Clots) Sister COPD Sister Emphysema Sister other (Blood Clots) Sister Hypertension Sister Hypertension Brother Diabetes Brother Kidney Disease Brother Diabetes Brother Cancer Maternal Grandmother Lung other (Other) Paternal Grandmother with TB. Did not live with patient. Heart Daughter Hypertension Son Social History Tobacco Use Smoking status: Current Every Day Smoker Packs/day: 1.00 Years: 33.00 Pack years: 33.00 Types: Cigarettes Start date: 04/10/1981 Smokeless tobacco: Never Used Tobacco comment: smoking 1 ppd. Vaping Use Vaping Use: Never used Substance Use Topics Alcohol use: No Drug use: No Current Meds metoprolol tartrate, short acting, (LOPRESSOR) 25 mg tablet Take 1 tablet by mouth twice daily. famotidine (PEPCID) 20 mg tablet Take 1 tablet by mouth twice daily. escitalopram oxalate (LEXAPRO) 5 mg tablet Take 2.5 mg daily for 2 weeks, then go to 5 mg daily if tolerated polyethylene glycol 3350 (MIRALAX) 17 gram/dose powder Take 17 g by mouth once daily. As needed forconstipation tiZANidine (ZANAFLEX) 2 mg tablet Take 1-2 tablets every 8 hours as needed for muscle spasm relatedpain diclofenac, EC, (VOLTAREN) 75 mg EC tablet Take 1 tablet by mouth twice daily. HYDROcodone-acetaminophen (NORCO) 5-325 mg per tablet Take 1 tablet by mouth every 6 hours as needed for pain for up to 30 days. Do not start before November 03, 2021. diclofenac, EC, (VOLTAREN) 75 mg EC tablet take 1 tablet by mouth twice a day for 14 days HYDROcodone-acetaminophen (NORCO) 5-325 mg per tablet Take 1 tablet by mouth every 6 hours as needed for pain for up to 30 days. Take one pill 4 times daily as needed for back pain 1 of 2 Rx Do not start before September 04, 2021. HYDROcodone-acetaminophen (NORCO) 5-325 mg per tablet Take 1 tablet by mouth four times daily for 30 days. Take one pill 3-4 times daily as needed for back pain Do not start before August 05, 2021. rosuvastatin (CRESTOR) 10 mg tablet Take 1 tablet by mouth daily at bedtime. levoFLOXacin (LEVAQUIN) 750 mg tablet Take 750 mg by mouth once daily. hydrOXYzine HCl (ATARAX) 25 mg tablet Take 1 tablet by mouth twice daily as needed for Anxiety. loratadine (CLARITIN) 10 mg tablet Take 1 tablet by mouth once daily as needed. FOR ALLERGY SYMPTOMS HYDROcodone-acetaminophen (NORCO) 5-325 mg per tablet Take 1 tablet by mouth every 6 hours as needed for Pain for up to 8 days. Take one pill 4 times daily as needed for back pain Do not start beforeOctober 02, 2020. fluticasone (FLONASE) 50 mcg/actuation nasal spray place 1 spray into each nostril twice a day Nebulizer Accessories kit 4 kits per month. Dx J44.9 albuterol (PROVENTIL) 2.5 mg /3 mL (0.083 %) nebulizer solution Use 3 mL via nebulizer every 4 hours as needed for Wheezing/Shortness of Breath. Use over 5-15minutes. Cholecalciferol, Vitamin D3, 2,000 unit cap Take 1 capsule by mouth once daily. DULERA 200-5 mcg/actuation inhaler Inhale 2 Puffs as instructed twice daily. VENTOLIN HFA 90 mcg/actuation inhaler Take 2 Puffs by mouth as needed. Objective LMP (LMP Unknown) Physical Exam * Louis Holguin MA - 11/07/2021 9:08 AM EDT This note was created using [employer]. Subjective Jessica Gloria is a 66 year old female. Review of Systems Objective LMP (LMP Unknown) Physical Exam Assessment and Plan [facility] Nurse Note* Radha Hyman - 11/07/2021 9:34 AM EDT Procedure to be performed: Right C3/4, C4/5, C5/6 Cervical Radiofrequency Ablation Patient was wheeled on stretcher from pre op bay to procedure room and assisted onto the procedure tablePatient s procedure was performed in an [facility] Procedure room. Pause completed at each level by provider to verify correct level and laterality placement Pressure was applied to patient s injection site(s) and bleeding was minimal. Patient had no complaint of shortness of breath, dizziness, headache, numbness, tingling, weakness or complications from procedure. Patient was assisted from the procedure table onto the stretcher and wheeled into a post op bay. Patient was advised a clinician will be to obtain another set of vitals. Time Out: 1001 Confirmed patient name, date of , procedure site, laterality, and allergies Procedure Start: 1004 Procedure End: 1036 * Louis Holguin MA - 11/07/2021 9:07 AM EDT Are you on a blood thinner: no If yes, is a hold required: no Last dose of blood thinner: no INR Result today: no Do you require a Lovenox bridge:no Are you a diabetic:no Are you/or could you be : no Are you taking Xanax for the procedure: no Are you currently on a steroid? no Are you currently on an antibiotic: no Have you had a COVID-19 vaccine in the last 14 days Or are you scheduled to receive one? 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 JH: No Please review and advise. Mimi Mcarthur RN documented [facility]Kn[facility]04[facility]22 History of Present illness Narrative* Ankit Martinez MD - 10/21/2021 3:20 PM EDT Chief Complaint Patient presents with: 6 Month Exam HPI Jessica Gloria is a 66 year old female who presents here today for 6 month follow up. Uses Miralax for constipation. She has been having issues with abdominal pain; increased GERD symptoms GERD: Sx are not controlled, she gets bad pains in the stomach. Is taking Prilosec 40 mg daily. Shewas on Pepcid 20 mg BID which seemed to help better. Pain: Managed by Pain Management Dr. Paul. Taking Engelhard 5-325 mg, Voltaren 75 mg BID and Zanaflex prn. PVD/PAD/HTN/Lipid: Follows with Cardio, Meche Romero CNP and Dr. Gandhi. Taking Lopressor 25 mg BID. Taking Crestor 10 mg daily. Taking Lopressor 25 mg BID which she states she has only been taking once daily. She feels heart rate could go too low at night. No chest pains, dizziness, or unusual SOB. Does check BP at home, readings 150-140/60-50. COPD: Continued smoker, 1 ppd. Follows with Pulm. Uses albuterol for nebulizer prn and Dulera inhaler BID. She has trouble at times with the insurance not covering the Dulera at 2 puffs BID or other times she has trouble with pharmacy not having the inhaler. ERIKA: Taking Hydroxyzine 25 mg BID prn, taking mostly at night as it makes her tired. She has been taking it every night and feels this is helping. She was on Lexapro 10 mg in the past but couldn't tolerate the side effects that she was getting when she first started on it. She would like to try starting on 5 mg daily till she is able to tolerate the medication. Past medical history, appointments, medications, allergies reviewed. Previous Medical History PAST MEDICAL HISTORY Diagnosis Date Acid reflux Back pain COPD (chronic obstructive pulmonary disease) ([facility]) 2016 FEV1 0.95L, 40% pred. COPD (chronic obstructive pulmonary disease) ([facility]) Kidney stones Osteopenia frax score 4% hip fracture risk 2017 start fosamax repeat imaging 1-2 years Unspecified asthma(493.90) Previous Surgical History PAST SURGICAL HISTORY Procedure Laterality Date COLONOSCOPY FLX DX W/COLLJ SPEC WHEN PFRMD 05/27/2011 Colonoscopy CYSTO CALIBRATION DILAT URTL STRIX/STENOSIS N/A 11/22/2018 LAPAROSCOPY SURG CHOLECYSTECTOMY 2005 Cholecystectomy, lap LIG/TRNSXJ FLP TUBE ABDL/VAG APPR UNI/BI Tubal ligation LITHOTRIPSY XTRCORP SHOCK WAVE Lithotripsy LUNG BIOPSY PAST SURGICAL HISTORY OF 1982 lung biopsy PAST SURGICAL HISTORY OF Right 05/2020 CT guided biopsy on Lung. Dr. Brayden ALONSO OPER STRES INCONTINENCE 08/2011 Family History FAMILY HISTORY Problem Relation Age of Onset Blood Disease Father Blood Clots Heart Father Kidney Disease Sister Diabetes Sister Hypertension Sister other (Blood Clots) Sister COPD Sister Emphysema Sister other (Blood Clots) Sister Hypertension Sister Hypertension Brother Diabetes Brother Kidney Disease Brother Diabetes Brother Cancer Maternal Grandmother Lung other (Other) Paternal Grandmother with TB. Did not live with patient. Heart Daughter Hypertension Son Patient Allergies ALLERGIES Allergen Reactions Bactrim [Sulfametho* Other: See Comments [place] sick, barely could breath. [place] deathly sick . GI upset Penicillins Anaphylaxis As a child passed out in md office after PCN injection. Zoloft [Sertraline * GI Upset GI upset, chest burning, muscle ache Ipratropium Other: See Comments Blurry vision, abdominal cramping, tremor, headache. Tudorza Pressair [A* Other: See Comments Heart palpitations, blurry vision, abdominal cramping, tremor, headache. Cymbalta [Duloxetin* Intolerance panic Elavil [Amitriptyli* Intolerance GI upset, chest burning Gabapentin Intolerance Cough, sob, anxiety, increased drowsiness Incruse Ellipta [Um* Other: See Comments Heart palpitations, blurry vision, abdominal cramping, tremor, headache. Levofloxacin Other: See Comments pressure in head. Feel like she is going to throw up and pass out. Lyrica [Pregabalin] Other: See Comments Chest discomfort,burping,sob Methylprednisone Myalgia Doxycycline Mental Status Change Makes her feel spacey . If given abx prefer to use this one out of all with the least amount of side effects. Current Medications Current Outpatient Medications on File Prior to Visit Medication Sig tiZANidine (ZANAFLEX) 2 mg tablet Take 1-2 tablets every 8 hours as needed for muscle spasm relatedpain diclofenac, EC, (VOLTAREN) 75 mg EC tablet Take 1 tablet by mouth twice daily. [START ON 11/03/2021] HYDROcodone-acetaminophen (NORCO) 5-325 mg per tablet Take 1 tablet by mouth every 6 hours as needed for pain for up to 30 days. Do not start before November 03, 2021. diclofenac, EC, (VOLTAREN) 75 mg EC tablet take 1 tablet by mouth twice a day for 14 days HYDROcodone-acetaminophen (NORCO) 5-325 mg per tablet Take 1 tablet by mouth every 6 hours as needed for pain for up to 30 days. Take one pill 4 times daily as needed for back pain 1 of 2 Rx Do not start before September 04, 2021. HYDROcodone-acetaminophen (NORCO) 5-325 mg per tablet Take 1 tablet by mouth four times daily for 30 days. Take one pill 3-4 times daily as needed for back pain Do not start before August 05, 2021. rosuvastatin (CRESTOR) 10 mg tablet Take 1 tablet by mouth daily at bedtime. metoprolol tartrate, short acting, (LOPRESSOR) 25 mg tablet Take 1 tablet by mouth twice daily. omeprazole (PRILOSEC) 40 mg capsule Take 1 capsule by mouth once daily. levoFLOXacin (LEVAQUIN) 750 mg tablet Take 750 mg by mouth once daily. hydrOXYzine HCl (ATARAX) 25 mg tablet Take 1 tablet by mouth twice daily as needed for Anxiety. loratadine (CLARITIN) 10 mg tablet Take 1 tablet by mouth once daily as needed. FOR ALLERGY SYMPTOMS famotidine (PEPCID) 20 mg tablet Take 1 tablet by mouth twice daily. HYDROcodone-acetaminophen (NORCO) 5-325 mg per tablet Take 1 tablet by mouth every 6 hours as needed for Pain for up to 8 days. Take one pill 4 times daily as needed for back pain Do not start beforeOctober 02, 2020. polyethylene glycol 3350 (MIRALAX) 17 gram/dose powder Take 17 g by mouth once daily. As needed forconstipation fluticasone (FLONASE) 50 mcg/actuation nasal spray place 1 spray into each nostril twice a day Nebulizer Accessories kit 4 kits per month. Dx J44.9 albuterol (PROVENTIL) 2.5 mg /3 mL (0.083 %) nebulizer solution Use 3 mL via nebulizer every 4 hours as needed for Wheezing/Shortness of Breath. Use over 5-15minutes. Cholecalciferol, Vitamin D3, 2,000 unit cap Take 1 capsule by mouth once daily. DULERA 200-5 mcg/actuation inhaler Inhale 2 Puffs as instructed twice daily. VENTOLIN HFA 90 mcg/actuation inhaler Take 2 Puffs by mouth as needed. Current Facility-Administered Medications on File Prior to Visit Medication perflutren lipid microspheres 1.3 mL in NaCl (PF) 0.9% 10 mL injection (DEFINITY) sodium chloride 0.9 % (flush) 10 mL (BD POSIFLUSH) Social History Social History Tobacco Use Smoking status: Current Every Day Smoker Packs/day: 1.00 Years: 33.00 Pack years: 33.00 Types: Cigarettes Start date: 04/10/1981 Smokeless tobacco: Never Used Tobacco comment: smoking 1 ppd. Vaping Use Vaping Use: Never used Substance Use Topics Alcohol use: No Drug use: No EXAM: BP 128/80 Pulse 74 Resp 16 Wt 50.3 kg (111 lb) LMP (LMP Unknown) BMI 20.30 kg/m General Appearance: Well appearing, alert, in no acute distress, well-hydrated, well nourished.. Lungs: Lungs clear to auscultation. No wheezing, rhonchi, rales.. Heart: RRR without murmur, gallop, or rubs. No ectopy. Health Maintenance List SHINGRIX VACCINE(1 of 2) Never done LUNG CANCER SCREENING due on 11/25/2019 MAMMOGRAM due on 11/26/2020 DTAP,TDAP,TD(2 - Td or Tdap) due on 05/15/2021 COLORECTAL CANCER SCREENING due on 05/28/2021 COVID-19 VACCINE(3 - Booster for Moderna series) due on 07/17/2021 ANNUAL PCP TEAM CHRONIC DISEASE VISIT due on 05/26/2022 PAP TESTING due on 08/25/2022 HPV TESTING due on 08/25/2022 DIABETES SCREEN due on 07/29/2024 LIPID SCREEN due on 07/29/2026 SPIROMETRY Completed INFLUENZA Completed HEPATITIS C SCREENING Completed HIV SCREENING Completed ONE PNEUMOVAX PRIOR TO AGE 67 Addressed MENINGOCOCCAL CONJUGATE Aged Out Data reviewed None ASSESSMENT/PLAN: 1. Anxiety - ICD9: 300.00, ICD10: F41.9 (primary diagnosis) Continue current medications. Add Lexapro 5 mg, start at half pill (2.5 mg) daily for 2 weeks then increase to 5 mg daily. 2. Generalized abdominal pain - ICD9: 789.07, ICD10: R10.84 - Referral to Gastroenterology - Stop Prilosec - Restart Pepcid 20 mg BID - FAMOTIDINE 20 MG TABLET 3. Encounter for screening mammogram for malignant neoplasm of breast - ICD9: V76.12, ICD10: Z12.31 - Encouraged monthly BSE - Follow up for annual exam in one year. - JOSE M SCREENING 4. Chronic constipation - ICD9: 564.00, ICD10: K59.09 Consult Gastro 5. Palpitations - ICD9: 785.1, ICD10: R00.2 Continue current medications. Continue with Cardio 6. Chronic obstructive pulmonary disease, unspecified COPD type (HCC) - ICD9: 496, ICD10: J44.9 Continue current medications. Continue with Pulm 7. Smoker - ICD9: 305.1, ICD10: F17.200 - Cessation encouraged. - Physiologic and physical aspects of tobacco addiction as well as strategies for quitting were discussed. - Counseling was given focusing on the harmful effects of this addiction especially given the patient's medical condition(s) which will be worsened because of the chemicals in tobacco. - Counseling was given 3-4 minutes. 8. Gastroesophageal reflux disease, unspecified whether esophagitis present - ICD9: 530.81, ICD10: K21.9 - Refer for GI consult - Stop Prilosec - Start Pepcid 20 mg BID - FAMOTIDINE 20 MG TABLET 9. Chronic low back pain without sciatica, unspecified back pain laterality - ICD9: 724.2, 338.29, ICD10: M54.50, G89.29 Continue current medications. Continue with Pain Management 10. Depression, unspecified depression type - ICD9: 311, ICD10: F32.A Continue current medications. Add Lexapro 5 mg, start at half pill (2.5 mg) daily for a few weeks then increase to 5 mg daily. 11. Vitamin D deficiency - ICD9: 268.9, ICD10: E55.9 Continue current medications. Follow up in 1 month. Will recheck routine labs in 6 months; check CBC/iron/TSH/vit D in one month. I agree with the Chief Complaint, ROS, and Past Histories independently gathered by the clinical support dba and the remaining scribed note accurately describes my personal service to the patient. Medical Decision Making: Problems: Moderate: 2+ stable chronic illnesses Data: Unique test(s) ordered: 3+ Risk: Moderate: Drug management Medical Decision Making Level: 4 - Moderate Ankit Martinez MD The documentation for this note was completed by Marybel Olivas Ma acting as scribe for Ankit Martinez MD. October 21, 2021 3:28 PM. Marybel Olivas Ma documented [facility] History of Present illness Narrative* Eleanor Benson MA - 09/30/2021 2:30 PM EDT Review of Systems Constitutional: Positive for chills. Negative for activity change, fever and unexpected weight change. Gastrointestinal: Negative for bowel retention or incontinence Genitourinary: Positive for difficulty urinating. Negative for bladder retention or incontinence Musculoskeletal: Positive for arthralgias, back pain, myalgias, neck pain and neck stiffness. Negative for gait problem and joint swelling. Neurological: Positive for weakness and numbness. Negative for headaches. Psychiatric/Behavioral: Negative for dysphoric mood, sleep disturbance and suicidal ideas. The patient is nervous/anxious. * Otto Paul MD - 09/30/2021 2:21 PM EDT [facility] Name: Jessica Gloria : 1955 Purpose: Established Patient Encounter Date: 09/30/21 Chief Complaint: NECK PAIN and THORACIC PAIN Interval History: Ms. Jessica Gloria is a 65 year old FEMALE with asthma, COPD, nephrolithiasis and osteopenia whopresents today in follow-up after cervical medial branch blocks. Patient was seen on 02/06/21 where she noted ongoing upper back and neck pain with accompanied paresthesias. She has undergone thoracic MBB's with excellent 80% relief with prolonged effect (several months), however her pain had started to return thus she was planned for an additional set of diagnostic MBBs with plan for RFA if these proved to be beneficial as well. She subsequently underwent thoracic MBBs at bilateral T5, T6 and T7 on 03/17/21 with 80% relief during the anesthetic phase but no care home benefit as previous, thus plan was made to proceed with thoracic RFA. With regards to her neck pain she has undergone trigger point injections as well as cervical MBB's with good effect, however her pain has started to return, thus she was planned for repeat bilateral cervical MBBs at C3/4, C4/5, C5/6 on 03/31/21 bilaterally. Patient underwent cervical MBBs on 03/31/21and was seen in followup after this where she reported 80% relief for 6 hours of relief after cervical MBBs. She reported improvement in pain control as well as increased ability to move her neck with more fluid ROM. She further reports radicular pain from the neck down the lateral aspect of the arm into digits 3 and 4 on the L armv which also improved with her diagnostic MBBs. Due to the positive response she has had, will plan to proceed with repeat cervical MBBs at C3/4, C4/5, C5/6 on the left followed by the right, with plan to proceed with RFA if these are beneficial again. She underwentleft cervical MBBs at C3/4, C4/5, C5/6 on 05/01 with 100% relief for 3 hours during the anesthetic phase. She subsequently underwent MBBs on the right side on 05/16/21 with 100% relief for 4-6 hours. She unfortunately had her cervical RFA deferred on 05/30/21 due to pt having significant upper respiratory symptoms including a cough that prevented her from maintaining a prone position for her procedure and c/f for ongoing infection. Since last being seen, she underwent thoracic RFA at T5-6, T6-7 and T7-8 on 07/23/2021 and 08/06/2021 with 50% relief in the thoracic spine with the pain duller than previously. She is now planned for completion of cervical MBB's in preparation for RFA. Today, pt reports that she has had two COPD exacerbations requiring prednisone burst as well as antibiotics, which deferred her cervical RFA. She continues to report pain with moving her neck, with pain from the neck down the lateral aspect of the arm into digits 3 and 4 on the L arm. Pain is described as aching, intermittently sharp pain, rated as a 5/10 with regards to severity. With regards to her thoracic spine pain, pt reports that her thoracic RFA provided 100% reliefon the right side which is ongoing and 50-60% relief on the left, with ongoing benefit, with good controlof her thoracic spine pain at this time. She further has sharp stabbing pain through the toes into the dorsum of the foot, radiating proximally up until the mid-corado. Most of her pain is at night. She reports exacerbation of pain with walking, relieved by sitting. With regard to medications, patient is on hydrocodone acetaminophen 5/325 QID, Flexeril prn. She has not tolerated several neuropathics in the past. Pt otherwise denies fevers, chills, weight loss, weakness, saddle anesthesia, bowel/bladder incontinence or retention. Current Status: Pain: Timing: years Character: aching, intermittently sharp Primary location: upper to mid-thoracic spine, neck Radiation: neck pain radiates down the lateral aspect of the arm into digits 3 and 4 on the L arm Current pain level on NRS: 5/10 Maximum pain level on NRS: 10/10 INTAKE PAIN ASSESSMENT 08/07/2021 09/30/2021 Are you having pain associated with your visit today? Yes, Provider notified Yes, Provider notified Pain Scales Verbal (Numeric Rating or Visual Analog Scale) Verbal (Numeric Rating or Visual Analog Scale) Pain Level 5 5 Pain Location Back-Middle Back-Middle Description Aching Aching;Sore Duration Amount of Time - - Duration Units Years Years Frequency Continuous Intermittent Intervention/Comfort measure Medication;Reposition;Relaxation Medication;Heat Comments - - Pain Assessment (RN/FOOD AND BEVERAGE ASSISTANT) - - Medication: Current pain medications: hydrocodone acetaminophen 5/325 QID Analgesia adequate: Yes Medications requiring refills today: Hydrocodone-APAP 5-325mg TID vs QID Date last filled: 09/04/21 Quantity filled: 105 How many left: 9 Time most recent dose taken: 09/30/21 [facility] PAIN PILL COUNT 09/30/2021 Medication Name Hydrocodone Strength 5 Last Fill Date 09/04/2021 Date Last Dose Taken 09/30/2021 Quantity Filled 105 Quantity Remaining 9 AG SPINE COMBINATION 09/30/2021 Questionnaire Completed Date Questionnaire URINE DRUG SCREEN Completed Date 09/30/2021 Comments Questionnaire NA/OIC Completed Date 09/30/2021 Questionnaire Completed Date Compliance: Safety Checklist: Are you taking proper precautions to safe guard your medication? Yes Taking the medications as prescribed? Yes Getting pain medications from another physician? No Obtaining pain medication from another source? No Sharing medications with friends/family? No Quality of life improved as a result of taking these medications? Yes Any side effect with this medication? No Justification for Continued Opioid Care: Adequate analgesia? Yes Aberrant drug seeking behavior? No Adverse reactions? No Medications improve quality of life? Yes Compliance: PDMP website checked and validated. All prescriptions have been APPROPRIATELY filled. No suspicious activity was identified. 09/30/21 by Otto Paul MD Last UDS: 08/07/21 appropriately positive for hydrocodone Allergies: Allergies: Bactrim [Sulfametho* Other: See Comments Comment:[place] sick, barely could breath. [place] deathly sick . GI upset Penicillins Anaphylaxis Comment:As a child passed out in md office after PCN injection. Zoloft [Sertraline * GI Upset Comment:GI upset, chest burning, muscle ache Ipratropium Other: See Comments Comment:Blurry vision, abdominal cramping, tremor, headache. Tudorza Pressair [A* Other: See Comments Comment:Heart palpitations, blurry vision, abdominal cramping, tremor, headache. Cymbalta [Duloxetin* Intolerance Comment:panic Elavil [Amitriptyli* Intolerance Comment:GI upset, chest burning Gabapentin Intolerance Comment:Cough, sob, anxiety, increased drowsiness Incruse Ellipta [Um* Other: See Comments Comment:Heart palpitations, blurry vision, abdominal cramping, tremor, headache. Levofloxacin Other: See Comments Comment:pressure in head. Feel like she is going to throw up and pass out. Lyrica [Pregabalin] Other: See Comments Comment:Chest discomfort,burping,sob Methylprednisone Myalgia Doxycycline Mental Status Change Comment:Makes her feel spacey . If given abx prefer to use this one out of all with the least amount of side effects. Current Outpatient Medications Medication Sig Dispense Refill [START ON 11/03/2021] HYDROcodone-acetaminophen (NORCO) 5-325 mg per tablet Take 1 tablet by mouth every 6 hours as needed for pain for up to 30 days. Do not start before November 03, 2021. 105 tablet 0 diclofenac, EC, (VOLTAREN) 75 mg EC tablet take 1 tablet by mouth twice a day for 14 days 28 tablet0 HYDROcodone-acetaminophen (NORCO) 5-325 mg per tablet Take 1 tablet by mouth every 6 hours as needed for pain for up to 30 days. Take one pill 4 times daily as needed for back pain 1 of 2 Rx Do not start before September 04, 2021. 105 tablet 0 rosuvastatin (CRESTOR) 10 mg tablet Take 1 tablet by mouth daily at bedtime. 90 tablet 3 omeprazole (PRILOSEC) 40 mg capsule Take 1 capsule by mouth once daily. 30 capsule 2 levoFLOXacin (LEVAQUIN) 750 mg tablet Take 750 mg by mouth once daily. hydrOXYzine HCl (ATARAX) 25 mg tablet Take 1 tablet by mouth twice daily as needed for Anxiety. 60 tablet 3 loratadine (CLARITIN) 10 mg tablet Take 1 tablet by mouth once daily as needed. FOR ALLERGY SYMPTOMS 30 tablet 11 famotidine (PEPCID) 20 mg tablet Take 1 tablet by mouth twice daily. 60 tablet 5 polyethylene glycol 3350 (MIRALAX) 17 gram/dose powder Take 17 g by mouth once daily. As needed forconstipation 1 Bottle 5 fluticasone (FLONASE) 50 mcg/actuation nasal spray place 1 spray into each nostril twice a day Nebulizer Accessories kit 4 kits per month. Dx J44.9 4 Kit 11 albuterol (PROVENTIL) 2.5 mg /3 mL (0.083 %) nebulizer solution Use 3 mL via nebulizer every 4 hours as needed for Wheezing/Shortness of Breath. Use over 5-15minutes. Cholecalciferol, Vitamin D3, 2,000 unit cap Take 1 capsule by mouth once daily. DULERA 200-5 mcg/actuation inhaler Inhale 2 Puffs as instructed twice daily. 0 VENTOLIN HFA 90 mcg/actuation inhaler Take 2 Puffs by mouth as needed. tiZANidine (ZANAFLEX) 2 mg tablet Take 1-2 tablets every 8 hours as needed for muscle spasm relatedpain 90 tablet 2 diclofenac, EC, (VOLTAREN) 75 mg EC tablet Take 1 tablet by mouth twice daily. 60 tablet 2 HYDROcodone-acetaminophen (NORCO) 5-325 mg per tablet Take 1 tablet by mouth four times daily for 30 days. Take one pill 3-4 times daily as needed for back pain Do not start before August 05, 2021. 105 tablet 0 metoprolol tartrate, short acting, (LOPRESSOR) 25 mg tablet Take 1 tablet by mouth twice daily. 60 tablet 0 HYDROcodone-acetaminophen (NORCO) 5-325 mg per tablet Take 1 tablet by mouth every 6 hours as needed for Pain for up to 8 days. Take one pill 4 times daily as needed for back pain Do not start beforeOctober 02, 2020. 32 tablet 0 Current Facility-Administered Medications Medication Dose Route Frequency Provider Last Rate Last Admin perflutren lipid microspheres 1.3 mL in NaCl (PF) 0.9% 10 mL injection (DEFINITY) INTRAVENOUS DIRECTED PRN Meche Romero APRN.DANIELLA sodium chloride 0.9 % (flush) 10 mL (BD POSIFLUSH) 10 mL INTRAVENOUS DIRECTED PRN Meche Romero APRN.CONFIDENTIAL SECRETARY PAST MEDICAL HISTORY Diagnosis Date Acid reflux Back pain COPD (chronic obstructive pulmonary disease) ([facility]) 2016 FEV1 0.95L, 40% pred. COPD (chronic obstructive pulmonary disease) ([facility]) Kidney stones Osteopenia frax score 4% hip fracture risk 2017 start fosamax repeat imaging 1-2 years Unspecified asthma(493.90) PAST SURGICAL HISTORY Procedure Laterality Date COLONOSCOPY FLX DX W/COLLJ SPEC WHEN PFRMD 05/27/2011 Colonoscopy CYSTO CALIBRATION DILAT URTL STRIX/STENOSIS N/A 11/22/2018 LAPAROSCOPY SURG CHOLECYSTECTOMY 2005 Cholecystectomy, lap LIG/TRNSXJ FLP TUBE ABDL/VAG APPR UNI/BI Tubal ligation LITHOTRIPSY XTRCORP SHOCK WAVE Lithotripsy LUNG BIOPSY PAST SURGICAL HISTORY OF 1981 lung biopsy PAST SURGICAL HISTORY OF Right 05/2020 CT guided biopsy on Lung. Dr. Brayden ALONSO OPER STRES INCONTINENCE 08/2011 Review of Systems: Pertinent positives and negatives as per nursing note reviewed on today's date (noted above) Diagnostic Studies: Reviewed Personally on today's date MRI Spine Report No resulted procedures found. DATE PROCEDURE IMPROVEMENT 08/06/21 Left T5-6, T6-7, T7-8 RFA (100% relief) 07/23/21 Right T5-6, T6-7, T7-8 RFA (50-60% relief) 05/16/2021 cervical MBB right C3-4-C5-6 100% for 4 hours 05/02/2021 cervical MBB left C3-4-C5-6 80% 03/31/21 Cervical MBBs at C3-4, C4-5, C5-6 bilaterally 80% 03/17/2021 bilateral T5, T6, T7 medial branch blocks (80% relief) 12/11/20 Bilateral T4-5, T5-6, T6-7 medial branch blocks (80% relief for several months) Physical Exam: 09/30/21 1424 Pulse: 75 Resp: 18 SpO2: 95% Constitutional: well appearing Eyes: Conjunctiva clear. No discharge from eyes Cardiovascular: Appears well perfused Lymphatic: No visible regional lymphadenopathy Skin: No visible rashes or ecchymosis Psychiatric: Full affect, Alert, Pleasant Palpation: (+) Midline cervical and thoracic spine tenderness (+) Cervical/Thoracic paraspinal muscle tenderness (-) SIJ tenderness (-) piriformis muscle tenderness (-) Greater trochanter tenderness bilaterally Manuevers: (-) SLR negative bilaterally (-) Facet loading (Fonseca's Test) negative bilaterally (-) Tye's/FABERs negative bilaterally (-) Tomasa Finger Test to SIJ negative on two attempts Cervical spine: (-) Spurling's negative bilaterally (-) L'Hermitte's sign negative. ROM in rotation, extension and flexion of cervical spine all full but cause pain in all directions Muscles: muscle spasm, trigger points, atrophy, fasciculation not appreciated 5/5 strength in all upper and lower extremity myotomes. Gait normal. Heel and toe gait normal. Neuro: Reflexes: DTRs 2+ in biceps, triceps, brachialis, patellar and achilles bilaterally. 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 Patient reports 100% relief of left-sided thoracic spine pain and 50-60% relief of right-sided pain after right thoracic RFA at T5-6, T6-7 and T7- 8. She reports good control of her thoracic spine pain at this time. With regards to her cervical spine pain, patient underwent bilateral cervical MBBs at C3/4, C4/5, C5/6 on 03/31/21 bilaterally with 80% relief for 6 hours. She reported improvement in pain control as well as increased ability to move her neck with more fluid ROM. She underwent left cervical MBBs at C3/4, C4/5, C5/6 on 05/01 with 100% relief for 3 hours during the anesthetic phase. She subsequently underwent MBBs on the right side on 05/16/21 with 100% relief for 4-6 hours. She unfortunately had her cervical RFA deferred on 05/30/21 due to pt having significant upper respiratory symptoms including a cough that prevented her from maintaining a prone position for her procedure and c/f for ongoing infection. Due to the positive diagnostic response that she has had after 2 sets of cervical MBB's,plan was made to proceed with cervical RFA for cervical spondylosis/cervical facet arthropathy. Shefurther reports radicular pain from the neck down the lateral aspect of the arm into digits 3 and 4on the L arm which also improved with her diagnostic MBBs. If she does not have benefit from cervical RFA will consider MRI C-spine to assess for any disc related pathology which may be contributing to her symptoms. With regard to medications, patient is on hydrocodone acetaminophen 5 325mg TID vs QID with good pain control on this regimen, with improvement in her ability to carry out her ADLs/IADLs without significant nausea/vomiting/constipation/sedation on this regimen. Due to this, plan was made to continue this regimen moving forward as she undergoes further treatment of her cervical and thoracic spondylosis. Plan: Jessica Gloria would benefit from the following to reach personal goals for decreasing pain, improving function and work participation, and/or improving quality of life: 65 year old female being treated for the conditions noted above, who presents today for medication refill. After verifying the history noted above, performing a focused physical examination, and reviewing available compliance data including (where available) the PDMP/OARRS system, pill counts, toxicology screens, the following plan is advised: Interventional Procedure(s): - Cervical RFA at C3-4, C4-5, C5-6 bilaterally (right then left, 2 weeks apart) The risks, benefits, alternative treatment options and prognosis of the procedure were discussed and all of the patient's questions/concerns were addressed to the patient's satisfaction. The patient expressed understanding and gave verbal consent to proceed. Medication(s): - Refill for Hydrocodone-APAP 5-325mg, 2 total refills provided - start Diclofenac 75mg po BID - start Tizanidine 2mg-4mg TID prn - stop Flexeril Additional Studies: none Referrals: No additional considerations at present Functional Sabianism: No changes-continue current regimen Depending on response to the above-mentioned plan of care, in the future may consider evaluation for: can consider MRI C-spine for the radicular component of her pain -Follow-up: after cervical RFA Attribution: In addition to reviewing the information noted above, some elements copied from my most recent clinical note(s), including the physical exam (completed in entirety today), and the impression and plan sections, have been updated where appropriate. All reflect current medical decision making from today's date (noted above). Otto Paul MD PhD Pain Management [facility] of Past illness Narrative* Problem Noted Date Resolved Date Bronchitis 05/03/2014 05/03/2015 Abdominal pain, other specified site 05/27/2011 05/12/2012 Flatulence, eructation, and gas pain 05/27/2011 05/12/2012 Unspecified constipation 05/27/2011 012 Special screening for malignant neoplasms, colon 05/27/2011 05/12/2012 Screen for colon cancer 05/15/2011 05/12/20 12 Constipated 05/15/2011 05/12/2012 documented as of this encounter (statuses as of 10/12/2021) [facility] History of Past illness Narrative* Problem Noted Date Resolved Date Bronchitis 05/03/2014 05/03/2015 Abdominal pain, other specified site 05/27/2011 05/12/2012 Flatulence, eructation, and gas pain 05/27/2011 05/12/2012 Unspecified constipation 05/27/2011 012 Special screening for malignant neoplasms, colon 05/27/2011 05/12/2012 Screen for colon cancer 05/15/2011 05/12/20 12 Constipated 05/15/2011 05/12/2012 documented as of this encounter (statuses as of 10/20/2021) [facility] of Past illness Narrative* Problem Noted Date Resolved Date Bronchitis 05/03/2014 05/03/2015 Abdominal pain, other specified site 05/27/2011 05/12/2012 Flatulence, eructation, and gas pain 05/27/2011 05/12/2012 Unspecified constipation 05/27/2011 012 Special screening for malignant neoplasms, colon 05/27/2011 05/12/2012 Screen for colon cancer 05/15/2011 05/12/20 12 Constipated 05/15/2011 05/12/2012 documented as of this encounter (statuses as of 10/21/2021) [facility] of Past illness Narrative* Problem Noted Date Resolved Date Bronchitis 05/03/2014 05/03/2015 Abdominal pain, other specified site 05/27/2011 05/12/2012 Flatulence, eructation, and gas pain 05/27/2011 05/12/2012 Unspecified constipation 05/27/2011 012 Special screening for malignant neoplasms, colon 05/27/2011 05/12/2012 Screen for colon cancer 05/15/2011 05/12/20 12 Constipated 05/15/2011 05/12/2012 documented as of this encounter (statuses as of 10/22/2021) [facility] of Past illness Narrative* Problem Noted Date Resolved Date Bronchitis 05/03/2014 05/03/2015 Abdominal pain, other specified site 05/27/2011 05/12/2012 Flatulence, eructation, and gas pain 05/27/2011 05/12/2012 Unspecified constipation 05/27/2011 012 Special screening for malignant neoplasms, colon 05/27/2011 05/12/2012 Screen for colon cancer 05/15/2011 05/12/20 12 Constipated 05/15/2011 05/12/2012 documented as of this encounter (statuses as of 11/07/2021) [facility] illness Narrative* Problem Noted Date Resolved Date Bronchitis 05/03/2014 05/03/2015 Abdominal pain, other specified site 05/27/2011 05/12/2012 Flatulence, eructation, and gas pain 05/27/2011 05/12/2012 Unspecified constipation 05/27/2011 012 Special screening for malignant neoplasms, colon 05/27/2011 05/12/2012 Screen for colon cancer 05/15/2011 05/12/20 12 Constipated 05/15/2011 05/12/2012 documented as of this encounter (statuses as of 11/13/2021) [facility] of [facility] illness Narrative* Problem Noted Date Resolved Date Bronchitis 05/03/2014 05/03/2015 Abdominal pain, other specified site 05/27/2011 05/12/2012 Flatulence, eructation, and gas pain 05/27/2011 05/12/2012 Unspecified constipation 05/27/2011 012 Special screening for malignant neoplasms, colon 05/27/2011 05/12/2012 Screen for colon cancer 05/15/2011 05/12/20 12 Constipated 05/15/2011 05/12/2012 documented as of this encounter (statuses as of 11/19/2021) [facility] Narrative* Problem Noted Date Resolved Date Bronchitis 05/03/2014 05/03/2015 Abdominal pain, other specified site 05/27/2011 05/12/2012 Flatulence, eructation, and gas pain 05/27/2011 05/12/2012 Unspecified constipation 05/27/2011 012 Special screening for malignant neoplasms, colon 05/27/2011 05/12/2012 Screen for colon cancer 05/15/2011 05/12/20 12 Constipated 05/15/2011 05/12/2012 documented as of this encounter (statuses as of 11/25/2021) [facility] of [facility] illness Narrative* Problem Noted Date Resolved Date Bronchitis 05/03/2014 05/03/2015 Abdominal pain, other specified site 05/27/2011 05/12/2012 Flatulence, eructation, and gas pain 05/27/2011 05/12/2012 Unspecified constipation 05/27/2011 012 Special screening for malignant neoplasms, colon 05/27/2011 05/12/2012 Screen for colon cancer 05/15/2011 05/12/20 12 Constipated 05/15/2011 05/12/2012 documented as of this encounter (statuses as of 12/01/2021) [facility] Narrative* Problem Noted Date Resolved Date Bronchitis 05/03/2014 05/03/2015 Abdominal pain, other specified site 05/27/2011 05/12/2012 Flatulence, eructation, and gas pain 05/27/2011 05/12/2012 Unspecified constipation 05/27/2011 012 Special screening for malignant neoplasms, colon 05/27/2011 05/12/2012 Screen for colon cancer 05/15/2011 05/12/20 12 Constipated 05/15/2011 05/12/2012 documented as of this encounter (statuses as of 12/01/2021) [facility] illness Narrative* Problem Noted Date Resolved Date Bronchitis 05/03/2014 05/03/2015 Abdominal pain, other specified site 05/27/2011 05/12/2012 Flatulence, eructation, and gas pain 05/27/2011 05/12/2012 Unspecified constipation 05/27/2011 012 Special screening for malignant neoplasms, colon 05/27/2011 05/12/2012 Screen for colon cancer 05/15/2011 05/12/20 12 Constipated 05/15/2011 05/12/2012 documented as of this encounter (statuses as of 12/03/2021) [facility] Narrative* Problem Noted Date Resolved Date Bronchitis 05/03/2014 05/03/2015 Abdominal pain, other specified site 05/27/2011 05/12/2012 Flatulence, eructation, and gas pain 05/27/2011 05/12/2012 Unspecified constipation 05/27/2011 11/15/2 012 Special screening for malignant neoplasms, colon 05/27/2011 05/12/2012 Screen for colon cancer 05/15/2011 05/12/20 12 Constipated 05/15/2011 05/12/2012 documented as of this encounter (statuses as of 12/04/2021) [facility] Narrative* Problem Noted Date Resolved Date Bronchitis 05/03/2014 05/03/2015 Abdominal pain, other specified site 05/27/2011 05/12/2012 Flatulence, eructation, and gas pain 05/27/2011 05/12/2012 Unspecified constipation 05/27/2011 012 Special screening for malignant neoplasms, colon 05/27/2011 05/12/2012 Screen for colon cancer 05/15/2011 05/12/20 12 Constipated 05/15/2011 05/12/2012 documented as of this encounter (statuses as of 12/10/2021) [facility] illness Narrative* Problem Noted Date Resolved Date Bronchitis 05/03/2014 05/03/2015 Abdominal pain, other specified site 05/27/2011 05/12/2012 Flatulence, eructation, and gas pain 05/27/2011 05/12/2012 Unspecified constipation 05/27/2011 012 Special screening for malignant neoplasms, colon 05/27/2011 05/12/2012 Screen for colon cancer 05/15/2011 05/12/20 12 Constipated 05/15/2011 05/12/2012 documented as of this encounter (statuses as of 12/12/2021) [facility] illness Narrative* Problem Noted Date Resolved Date Bronchitis 05/03/2014 05/03/2015 Abdominal pain, other specified site 05/27/2011 05/12/2012 Flatulence, eructation, and gas pain 05/27/2011 05/12/2012 Unspecified constipation 05/27/2011 012 Special screening for malignant neoplasms, colon 05/27/2011 05/12/2012 Screen for colon cancer 05/15/2011 05/12/20 12 Constipated 05/15/2011 05/12/2012 documented as of this encounter (statuses as of 12/31/2021) [facility] Narrative* Problem Noted Date Resolved Date Bronchitis 05/03/2014 05/03/2015 Abdominal pain, other specified site 05/27/2011 05/12/2012 Flatulence, eructation, and gas pain 05/27/2011 05/12/2012 Unspecified constipation 05/27/2011 012 Special screening for malignant neoplasms, colon 05/27/2011 05/12/2012 Screen for colon cancer 05/15/2011 05/12/20 12 Constipated 05/15/2011 05/12/2012 documented as of this encounter (statuses as of 01/13/2022) [facility] Narrative* Problem Noted Date Resolved Date Bronchitis 05/03/2014 05/03/2015 Abdominal pain, other specified site 05/27/2011 05/12/2012 Flatulence, eructation, and gas pain 05/27/2011 05/12/2012 Unspecified constipation 05/27/2011 012 Special screening for malignant neoplasms, colon 05/27/2011 05/12/2012 Screen for colon cancer 05/15/2011 05/12/20 12 Constipated 05/15/2011 05/12/2012 documented as of this encounter (statuses as of 01/20/2022) [facility] Narrative* Problem Noted Date Resolved Date Bronchitis 05/03/2014 05/03/2015 Abdominal pain, other specified site 05/27/2011 05/12/2012 Flatulence, eructation, and gas pain 05/27/2011 05/12/2012 Unspecified constipation 05/27/2011 012 Special screening for malignant neoplasms, colon 05/27/2011 05/12/2012 Screen for colon cancer 05/15/2011 05/12/20 12 Constipated 05/15/2011 05/12/2012 documented as of this encounter (statuses as of 02/04/2022) [facility] Narrative* Problem Noted Date Resolved Date Bronchitis 05/03/2014 05/03/2015 Abdominal pain, other specified site 05/27/2011 05/12/2012 Flatulence, eructation, and gas pain 05/27/2011 05/12/2012 Unspecified constipation 05/27/2011 012 Special screening for malignant neoplasms, colon 05/27/2011 05/12/2012 Screen for colon cancer 05/15/2011 05/12/20 12 Constipated 05/15/2011 05/12/2012 documented as of this encounter (statuses as of 02/07/2022) [facility] Narrative* Problem Noted Date Resolved Date Bronchitis 05/03/2014 05/03/2015 Abdominal pain, other specified site 05/27/2011 05/12/2012 Flatulence, eructation, and gas pain 05/27/2011 05/12/2012 Unspecified constipation 05/27/2011 012 Special screening for malignant neoplasms, colon 05/27/2011 05/12/2012 Screen for colon cancer 05/15/2011 05/12/20 12 Constipated 05/15/2011 05/12/2012 documented as of this encounter (statuses as of 03/03/2022) [facility] Narrative* Problem Noted Date Resolved Date Bronchitis 05/03/2014 05/03/2015 Abdominal pain, other specified site 05/27/2011 05/12/2012 Flatulence, eructation, and gas pain 05/27/2011 05/12/2012 Unspecified constipation 05/27/2011 012 Special screening for malignant neoplasms, colon 05/27/2011 05/12/2012 Screen for colon cancer 05/15/2011 05/12/20 12 Constipated 05/15/2011 05/12/2012 documented as of this encounter (statuses as of 03/25/2022) [facility] Narrative* Problem Noted Date Resolved Date Bronchitis 05/03/2014 05/03/2015 Abdominal pain, other specified site 05/27/2011 05/12/2012 Flatulence, eructation, and gas pain 05/27/2011 05/12/2012 Unspecified constipation 05/27/2011 012 Special screening for malignant neoplasms, colon 05/27/2011 05/12/2012 Screen for colon cancer 05/15/2011 05/12/20 12 Constipated 05/15/2011 05/12/2012 documented as of this encounter (statuses as of 04/08/2022) [facility]11-06-2014 History of Past illness Narrative* Problem Noted Date Resolved Date Bronchitis 05/03/2014 05/03/2015 Abdominal pain, other specified site 05/27/2011 05/12/2012 Flatulence, eructation, and gas pain 05/27/2011 05/12/2012 Unspecified constipation 05/27/2011 012 Special screening for malignant neoplasms, colon 05/27/2011 05/12/2012 Screen for colon cancer 05/15/2011 05/12/20 12 Constipated 05/15/2011 05/12/2012 documented as of this encounter (statuses as of 04/09/2022) [facility] History of Past illness Narrative* Problem Noted Date Resolved Date Bronchitis 05/03/2014 05/03/2015 Abdominal pain, other specified site 05/27/2011 05/12/2012 Flatulence, eructation, and gas pain 05/27/2011 05/12/2012 Unspecified constipation 05/27/2011 012 Special screening for malignant neoplasms, colon 05/27/2011 05/12/2012 Screen for colon cancer 05/15/2011 05/12/20 12 Constipated 05/15/2011 05/12/2012 documented as of this encounter (statuses as of 05/15/2022) [facility] History of Past illness Narrative* Problem Noted Date Resolved Date Bronchitis 05/03/2014 05/03/2015 Abdominal pain, other specified site 05/27/2011 05/12/2012 Flatulence, eructation, and gas pain 05/27/2011 05/12/2012 Unspecified constipation 05/27/2011 012 Special screening for malignant neoplasms, colon 05/27/2011 05/12/2012 Screen for colon cancer 05/15/2011 05/12/20 12 Constipated 05/15/2011 05/12/2012 documented as of this encounter (statuses as of 06/05/2022) [facility] History of Past illness Narrative* Problem Noted Date Resolved Date Bronchitis 05/03/2014 05/03/2015 Abdominal pain, other specified site 05/27/2011 05/12/2012 Flatulence, eructation, and gas pain 05/27/2011 05/12/2012 Unspecified constipation 05/27/2011 012 Special screening for malignant neoplasms, colon 05/27/2011 05/12/2012 Screen for colon cancer 05/15/2011 05/12/20 12 Constipated 05/15/2011 05/12/2012 documented as of this encounter (statuses as of 06/11/2022) [facility] History of Past illness Narrative* Problem Noted Date Resolved Date Bronchitis 05/03/2014 05/03/2015 Abdominal pain, other specified site 05/27/2011 05/12/2012 Flatulence, eructation, and gas pain 05/27/2011 05/12/2012 Unspecified constipation 05/27/2011 012 Special screening for malignant neoplasms, colon 05/27/2011 05/12/2012 Screen for colon cancer 05/15/2011 05/12/20 12 Constipated 05/15/2011 05/12/2012 documented as of this encounter (statuses as of 07/09/2022) [facility] History of Past illness Narrative* Problem Noted Date Resolved Date Bronchitis 05/03/2014 05/03/2015 Abdominal pain, other specified site 05/27/2011 05/12/2012 Flatulence, eructation, and gas pain 05/27/2011 05/12/2012 Unspecified constipation 05/27/2011 012 Special screening for malignant neoplasms, colon 05/27/2011 05/12/2012 Screen for colon cancer 05/15/2011 05/12/20 12 Constipated 05/15/2011 05/12/2012 documented as of this encounter (statuses as of 07/16/2022) [facility] History of Past illness Narrative* Problem Noted Date Resolved Date Bronchitis 05/03/2014 05/03/2015 Abdominal pain, other specified site 05/27/2011 05/12/2012 Flatulence, eructation, and gas pain 05/27/2011 05/12/2012 Unspecified constipation 05/27/2011 012 Special screening for malignant neoplasms, colon 05/27/2011 05/12/2012 Screen for colon cancer 05/15/2011 05/12/20 12 Constipated 05/15/2011 05/12/2012 documented as of this encounter (statuses as of 07/22/2022) [facility] History of Past illness Narrative* Problem Noted Date Resolved Date Bronchitis 05/03/2014 05/03/2015 Abdominal pain, other specified site 05/27/2011 05/12/2012 Flatulence, eructation, and gas pain 05/27/2011 05/12/2012 Unspecified constipation 05/27/2011 012 Special screening for malignant neoplasms, colon 05/27/2011 05/12/2012 Screen for colon cancer 05/15/2011 05/12/20 12 Constipated 05/15/2011 05/12/2012 documented as of this encounter (statuses as of 07/28/2022) [facility] History of Past illness Narrative* Problem Noted Date Resolved Date Bronchitis 05/03/2014 05/03/2015 Abdominal pain, other specified site 05/27/2011 05/12/2012 Flatulence, eructation, and gas pain 05/27/2011 05/12/2012 Unspecified constipation 05/27/2011 012 Special screening for malignant neoplasms, colon 05/27/2011 05/12/2012 Screen for colon cancer 05/15/2011 05/12/20 12 Constipated 05/15/2011 05/12/2012 documented as of this encounter (statuses as of 07/30/2022) [facility] History of Past illness Narrative* Problem Noted Date Resolved Date Bronchitis 05/03/2014 05/03/2015 Abdominal pain, other specified site 05/27/2011 05/12/2012 Flatulence, eructation, and gas pain 05/27/2011 05/12/2012 Unspecified constipation 05/27/2011 012 Special screening for malignant neoplasms, colon 05/27/2011 05/12/2012 Screen for colon cancer 05/15/2011 05/12/20 12 Constipated 05/15/2011 05/12/2012 documented as of this encounter (statuses as of 08/13/2022) [facility] History of Past illness Narrative* Problem Noted Date Resolved Date Bronchitis 05/03/2014 05/03/2015 Abdominal pain, other specified site 05/27/2011 05/12/2012 Flatulence, eructation, and gas pain 05/27/2011 05/12/2012 Unspecified constipation 05/27/2011 012 Special screening for malignant neoplasms, colon 05/27/2011 05/12/2012 Screen for colon cancer 05/15/2011 05/12/20 12 Constipated 05/15/2011 05/12/2012 documented as of this encounter (statuses as of 08/13/2022) [facility] History of Past illness Narrative* Problem Noted Date Resolved Date Bronchitis 05/03/2014 05/03/2015 Abdominal pain, other specified site 05/27/2011 05/12/2012 Flatulence, eructation, and gas pain 05/27/2011 05/12/2012 Unspecified constipation 05/27/2011 012 Special screening for malignant neoplasms, colon 05/27/2011 05/12/2012 Screen for colon cancer 05/15/2011 05/12/20 12 Constipated 05/15/2011 05/12/2012 documented as of this encounter (statuses as of 08/18/2022) [facility] History of Past illness Narrative* Problem Noted Date Resolved Date Bronchitis 05/03/2014 05/03/2015 Abdominal pain, other specified site 05/27/2011 05/12/2012 Flatulence, eructation, and gas pain 05/27/2011 05/12/2012 Unspecified constipation 05/27/2011 012 Special screening for malignant neoplasms, colon 05/27/2011 05/12/2012 Screen for colon cancer 05/15/2011 05/12/20 12 Constipated 05/15/2011 05/12/2012 documented as of this encounter (statuses as of 08/20/2022) [facility] History of Past illness Narrative* Problem Noted Date Resolved Date Bronchitis 05/03/2014 05/03/2015 Abdominal pain, other specified site 05/27/2011 05/12/2012 Flatulence, eructation, and gas pain 05/27/2011 05/12/2012 Unspecified constipation 05/27/2011 012 Special screening for malignant neoplasms, colon 05/27/2011 05/12/2012 Screen for colon cancer 05/15/2011 05/12/20 12 Constipated 05/15/2011 05/12/2012 documented as of this encounter (statuses as of 09/29/2022) [facility] History of Past illness Narrative* Problem Noted Date Resolved Date Bronchitis 05/03/2014 05/03/2015 Abdominal pain, other specified site 05/27/2011 05/12/2012 Flatulence, eructation, and gas pain 05/27/2011 05/12/2012 Unspecified constipation 05/27/2011 012 Special screening for malignant neoplasms, colon 05/27/2011 05/12/2012 Screen for colon cancer 05/15/2011 05/12/20 12 Constipated 05/15/2011 05/12/2012 documented as of this encounter (statuses as of 10/16/2022) [facility] History of Past illness Narrative* Problem Noted Date Resolved Date Bronchitis 05/03/2014 05/03/2015 Abdominal pain, other specified site 05/27/2011 05/12/2012 Flatulence, eructation, and gas pain 05/27/2011 05/12/2012 Unspecified constipation 05/27/2011 012 Special screening for malignant neoplasms, colon 05/27/2011 05/12/2012 Screen for colon cancer 05/15/2011 05/12/20 12 Constipated 05/15/2011 05/12/2012 documented as of this encounter (statuses as of 10/20/2022) [facility] History of Past illness Narrative* Problem Noted Date Resolved Date Bronchitis 05/03/2014 05/03/2015 Abdominal pain, other specified site 05/27/2011 05/12/2012 Flatulence, eructation, and gas pain 05/27/2011 05/12/2012 Unspecified constipation 05/27/2011 012 Special screening for malignant neoplasms, colon 05/27/2011 05/12/2012 Screen for colon cancer 05/15/2011 05/12/20 12 Constipated 05/15/2011 05/12/2012 documented as of this encounter (statuses as of 10/26/2022) [facility] History of Past illness Narrative* Problem Noted Date Resolved Date Bronchitis 05/03/2014 05/03/2015 Abdominal pain, other specified site 05/27/2011 05/12/2012 Flatulence, eructation, and gas pain 05/27/2011 05/12/2012 Unspecified constipation 05/27/2011 012 Special screening for malignant neoplasms, colon 05/27/2011 05/12/2012 Screen for colon cancer 05/15/2011 05/12/20 12 Constipated 05/15/2011 05/12/2012 documented as of this encounter (statuses as of 11/06/2022) [facility] History of Past illness Narrative* Problem Noted Date Resolved Date Bronchitis 05/03/2014 05/03/2015 Abdominal pain, other specified site 05/27/2011 05/12/2012 Flatulence, eructation, and gas pain 05/27/2011 05/12/2012 Unspecified constipation 05/27/2011 012 Special screening for malignant neoplasms, colon 05/27/2011 05/12/2012 Screen for colon cancer 05/15/2011 05/12/20 12 Constipated 05/15/2011 05/12/2012 documented as of this encounter (statuses as of 12/10/2022) [facility] History of Past illness Narrative* Problem Noted Date Resolved Date Bronchitis 05/03/2014 05/03/2015 Abdominal pain, other specified site 05/27/2011 05/12/2012 Flatulence, eructation, and gas pain 05/27/2011 05/12/2012 Unspecified constipation 05/27/2011 012 Special screening for malignant neoplasms, colon 05/27/2011 05/12/2012 Screen for colon cancer 05/15/2011 05/12/20 12 Constipated 05/15/2011 05/12/2012 documented as of this encounter (statuses as of 01/01/2023) [facility] History of Past illness Narrative* Problem Noted Date Diagnosed Date Resolved Date Bronchitis 05/03/2014 05/03/2015 Abdominal pain, other specified site 05/27/2011 05/12/2012 Flatulence, eructation, and gas pain 05/27/2011 05/12/2012 Unspecified constipation 05/27/2011 Special screening for malign ant neoplasms, colon 05/27/2011 05/12/2012 Screen for colon cancer 05/15/201104/28 Constipated 05/15/2011 05/12/2012 documented as of this encounter (statuses as of 01/15/2023) [facility] History of Past illness Narrative* Problem Noted Date Diagnosed Date Resolved Date Bronchitis 05/03/2014 05/03/2015 Abdominal pain, other specified site 05/27/2011 05/12/2012 Flatulence, eructation, and gas pain 05/27/2011 05/12/2012 Unspecified constipation 05/27/2011 Special screening for malign ant neoplasms, colon 05/27/2011 05/12/2012 Screen for colon cancer 05/15/201104/28 Constipated 05/15/2011 05/12/2012 documented as of this encounter (statuses as of 03/05/2023) [facility] History of Past illness Narrative* Problem Noted Date Diagnosed Date Resolved Date Bronchitis 05/03/2014 05/03/2015 Abdominal pain, other specified site 05/27/2011 05/12/2012 Flatulence, eructation, and gas pain 05/27/2011 05/12/2012 Unspecified constipation 05/27/2011 Special screening for malign ant neoplasms, colon 05/27/2011 05/12/2012 Screen for colon cancer 05/15/201104/28 Constipated 05/15/2011 05/12/2012 documented as of this encounter (statuses as of 04/06/2023) [facility] History of Past illness Narrative* Problem Noted Date Diagnosed Date Resolved Date Bronchitis 05/03/2014 05/03/2015 Abdominal pain, other specified site 05/27/2011 05/12/2012 Flatulence, eructation, and gas pain 05/27/2011 05/12/2012 Unspecified constipation 05/27/2011 Special screening for malign ant neoplasms, colon 05/27/2011 05/12/2012 Screen for colon cancer 05/15/201104/28 Constipated 05/15/2011 05/12/2012 documented as of this encounter (statuses as of 05/02/2023) [facility] History of Past illness Narrative* Problem Noted Date Diagnosed Date Resolved Date Bronchitis 05/03/2014 05/03/2015 Abdominal pain, other specified site 05/27/2011 05/12/2012 Flatulence, eructation, and gas pain 05/27/2011 05/12/2012 Unspecified constipation 05/27/2011 Special screening for malign ant neoplasms, colon 05/27/2011 05/12/2012 Screen for colon cancer 05/15/201104/28 Constipated 05/15/2011 05/12/2012 documented as of this encounter (statuses as of 05/13/2023) [facility] History of Past illness Narrative* Problem Noted Date Diagnosed Date Resolved Date Bronchitis 05/03/2014 05/03/2015 Abdominal pain, other specified site 05/27/2011 05/12/2012 Flatulence, eructation, and gas pain 05/27/2011 05/12/2012 Unspecified constipation 05/27/2011 Special screening for malign ant neoplasms, colon 05/27/2011 05/12/2012 Screen for colon cancer 05/15/201104/28 Constipated 05/15/2011 05/12/2012 documented as of this encounter (statuses as of 05/13/2023) [facility] note* Diagnosis Thoracic spondylosis without myelopathy- Primary Cervical spondylosis without myelopathy Myofascial pain Mylagia and myositis, unspecified Lumbosacral spondylosis without myelopathy Chronic pain syndrome senior living current use of opiate analgesic Encounter for long-term (current) use of other medications documented in this encounter [facility] note* Diagnosis Chronic obstructive pulmonary disease, unspecified COPD type (HCC)- Primary Generalized abdominal pain Abdominal pain, generalized Encounter for screening mammogram for malignant neoplasm of breast Other screening mammogram Chronic constipation Unspecified constipation Palpitations Smoker Tobacco use disorder Gastroesophageal reflux disease, unspecified whether esophagitis present Chronic low back pain without sciatica, unspecified back pain laterality Depression, unspecified depression type Anxiety Anxiety state, unspecified Vitamin D deficiency Unspecified vitamin D deficiency Dyslipidemia Other and unspecified hyperlipidemia Screening for colon cancer Special screening for malignant neoplasms, colon documented in this encounter [facility] note* Diagnosis Chest pain, unspecified type- Primary [facility] Diagnosis Cervical spondylosis without myelopathy- Primary documented in this encounter [facility] note* Diagnosis Hospital discharge follow-up- Primary Other follow-up examination Acute bronchitis with chronic obstructive pulmonary disease (COPD) (HCC) Obstructive chronic bronchitis with acute bronchitis Fatigue, unspecified type [facility]* Diagnosis Cervical spondylosis without myelopathy- Primary Other chronic pain [facility] Diagnosis Generalized abdominal pain- Primary Abdominal pain, generalized Chronic constipation Unspecified constipation Gastroesophageal reflux disease, unspecified whether esophagitis present Screening for colon cancer Special screening for malignant neoplasms, colon Early satiety Weight loss Loss of weight Dysphagia, unspecified type [facility] Diagnosis Thoracic spondylosis without myelopathy Cervical spondylosis without myelopathy Lumbosacral spondylosis without myelopathy Chronic pain syndrome [facility] Diagnosis Thoracic spondylosis without myelopathy Cervical spondylosis without myelopathy Lumbosacral spondylosis without myelopathy Chronic pain syndrome [facility] Diagnosis Radiculopathy, thoracic region Thoracic or lumbosacral neuritis or radiculitis, unspecified [facility] Diagnosis Coronary artery disease involving [place] coronary artery of [place] heart without angina pectoris- Primary Palpitations Mixed hyperlipidemia PAD (peripheral artery disease) ([facility]) Peripheral vascular disease, unspecified Smoker Tobacco use disorder Primary hypertension Unspecified essential hypertension [facility] 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 Encounter for long-term (current) use of other medications Thoracic spondylosis without myelopathy Cervical spondylosis without myelopathy Lumbosacral spondylosis without myelopathy Chronic pain syndrome [facility] Diagnosis Nausea- Primary Nausea alone Early satiety Weight loss Loss of weight Generalized abdominal pain Abdominal pain, generalized [facility] Diagnosis Thoracic spondylosis without myelopathy- Primary Cervical spondylosis without myelopathy Lumbosacral spondylosis without myelopathy senior living current use of opiate analgesic Encounter for long-term (current) use of other medications Chronic pain syndrome [facility] Diagnosis Hospital discharge follow-up- Primary Other follow-up examination COPD with exacerbation ([facility]) Obstructive chronic bronchitis with exacerbation Anxiety with depression Smoker Tobacco use disorder Chronic constipation Unspecified constipation [facility] Diagnosis Cervical spondylosis without myelopathy- Primary Thoracic spondylosis without myelopathy Lumbosacral spondylosis without myelopathy senior living current use of opiate analgesic Encounter for long-term (current) use of other medications Other chronic pain Chronic pain syndrome [facility] Diagnosis Encounter for gynecological examination with abnormal finding- Primary Routine gynecological examination Difficulty in micturition Other symptoms involving urinary system Encounter for screening for osteoporosis Special screening for osteoporosis Asymptomatic postmenopausal state Urethral [place] Postmenopausal atrophic vaginitis Vagina itching Pruritus of genital organs Vaginal odor Unspecified symptom associated with female genital organs Encounter for screening mammogram for breast cancer Encounter for screening for human papillomavirus (HPV) Special screening examination for human papillomavirus (HPV) Pap smear for cervical cancer screening Screening for malignant neoplasm of the cervix [facility] Diagnosis Thoracic spondylosis without myelopathy Cervical spondylosis without myelopathy Lumbosacral spondylosis without myelopathy Chronic pain syndrome [facility] Diagnosis COPD with exacerbation (HCC)- Primary Obstructive chronic bronchitis with exacerbation [facility] Diagnosis Osteoporosis, unspecified osteoporosis type, unspecified pathological fracture presence- Primary COPD with exacerbation (HCC) Obstructive chronic bronchitis with exacerbation Anxiety Anxiety state, unspecified Smoker Tobacco use disorder Visit for eye and vision exam Examination of eyes and vision [facility] Diagnosis Cervical spondylosis without myelopathy- Primary Thoracic spondylosis without myelopathy Lumbosacral spondylosis without myelopathy 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 Encounter for long-term (current) use of other medications Myofascial pain Mylagia and myositis, unspecified Chronic pain syndrome [facility] Diagnosis Anxiety with depression [facility] Diagnosis Cervical spondylosis without myelopathy Thoracic spondylosis without myelopathy Lumbosacral spondylosis without myelopathy Chronic pain syndrome [facility]* Diagnosis Anxiety with depression- Primary Osteoporosis, unspecified osteoporosis type, unspecified pathological fracture presence Dyslipidemia Other and unspecified hyperlipidemia Smoker Tobacco use disorder Chronic obstructive pulmonary disease, unspecified COPD type (HCC) Decreased appetite Anorexia Chronic low back pain without sciatica, unspecified back pain laterality Palpitations Protein-calorie malnutrition, unspecified severity (HCC) Chronic respiratory failure with hypoxia (HCC) Chronic respiratory failure [facility] Diagnosis Tobacco abuse Tobacco use disorder [facility] Diagnosis Myofascial pain- Primary Mylagia and myositis, unspecified Cervical spondylosis without myelopathy Thoracic spondylosis without myelopathy 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 note* Diagnosis Posterior subcapsular polar senile cataract of both eyes- Primary Nuclear sclerosis of both eyes Cortical age-related cataract, bilateral Myopia, bilateral Myopia Regular astigmatism of both eyes Regular astigmatism Presbyopia Dry eyes, bilateral Tear film insufficiency, unspecified documented in this encounter [facility] note* Diagnosis Myalgia- Primary Mylagia and myositis, unspecified Cervical spondylosis without myelopathy Thoracic spondylosis without myelopathy Lumbosacral spondylosis without myelopathy Chronic pain syndrome senior living current use of opiate analgesic Encounter for long-term (current) use of other medications documented in this encounter 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 note* Diagnosis Chronic obstructive pulmonary disease, unspecified COPD type ([facility])- Primary Smoker Tobacco use disorder Depression, unspecified depression type Chronic low back pain without sciatica, unspecified back pain laterality Anxiety Anxiety state, unspecified Dyslipidemia Other and unspecified hyperlipidemia Need for influenza vaccination Need for prophylactic vaccination and inoculation against influenza Need for vaccination Need for prophylactic vaccination and inoculation against unspecified single disease PAD (peripheral artery disease) ([facility]) Peripheral vascular disease, unspecified Gastroesophageal reflux disease, unspecified whether esophagitis present Vitamin D deficiency Unspecified vitamin D deficiency Osteoporosis, unspecified osteoporosis type, unspecified pathological fracture presence documented in this encounter [facility] note* Diagnosis Encounter for screening mammogram for breast cancer documented in this encounter [facility] note* Diagnosis Thoracic spondylosis without myelopathy Lumbosacral spondylosis without myelopathy Cervical spondylosis without myelopathy Chronic pain syndrome documented in this encounter [facility] course Narrative No data available for this section [facility] Progress note No data available for this section [facility] Reason for referral (narrative)* Outpatient Procedure (Routine) - Pending Review Specialty Diagnoses / Procedures Referred By Naveen t Referred To Contact [facility] Diagnoses Chronic constipation Screening for colon cancer Procedures COLONOSCOPY SCREENING COLONOSCOPY FLX DX W/COLLJ SPEC WHEN PFRMD Domitila Lara PA-C [address] [place] [address] [address] Referral ID Status Reason Start Date Expiration Date Visits Requested Visits Authorized [id number] Pending Review Auto-Generat ed Referral 12/01/2021 12/01/2022 1 1 * Outpatient Procedure (Routine) - Pending Review Specialty Diagnoses / Procedures Referred By Naveen spencer Referred To Contact [facility] Diagnoses Generalized abdominal pain Gastroesophageal reflux disease, unspecified whether esophagitis present Early satiety Weight loss Dysphagia, unspecified type Procedures EGD DIAGNOSTIC ESOPHAGOGASTRODUODENOSC OPY TRANSORAL DIAGNOSTIC Domitila Lara PA-C [address] [place] [address] [facility] [address] [address] Referral ID Status Reason Start Date Expiration Date Visits Requested Visits Authorized [id number] Pending Review Auto-Generat ed Referral 12/01/2021 12/01/2022 1 1 [facility] for referral (narrative)* Diagnostic Procedure Only (Routine) - Pending Review Specialty Diagnoses / Procedures Referred By Naveen spencer Referred To Contact [facility] Diagnoses Nausea Early satiety Weight loss Generalized abdominal pain Procedures NM GASTRIC EMPTYING SOLID GASTRIC EMPTYING STUDY Domitila Lara PA-C [address] [place] [address] Molecular & Functional Imaging [address] [id number] Referral ID Status Reason Start Date Expiration Date Visits Requested Visits Authorized [id number] Pending Review Auto-Generat ed Referral 03/03/2022 04/02/2023 1 1 [facility] for referral (narrative)* Diagnostic Procedure Only (Routine) - Closed Specialty Diagnoses / Procedures Referred By Naveen spencer Referred To Contact [facility] Diagnoses Encounter for screening mammogram for breast cancer Procedures JOSE M SCREENING SCREENING MAMMOGRAPHY BI 2-VIEW BREAST INC Ankit Sloan MD [address] [place] [address] [facility] [address] [place] [address] Referral ID Status Reason Start Date Expiration Date V isits Requested Visits Authorized [id number] Closed Auto-Generate d Referral 09/17/2021 10/17/2022 1 1 [facility] for visit Narrative* Diagnostic Procedure Only (Routine) - Closed Specialty Diagnoses / Procedures Referred By Naveen spencer Referred To Contact [facility] Diagnoses Encounter for screening mammogram for breast cancer Procedures JOSE M SCREENING SCREENING MAMMOGRAPHY BI 2-VIEW BREAST INC Ankit Sloan MD [address] [place] [address] [facility] [address] [place] [address] Referral ID Status Reason Start Date Expiration Date V isits Requested Visits Authorized [id number] Closed Auto-Generate d Referral 09/17/2021 10/17/2022 1 1 [facility] Summary Purpose Family History No Family History Records FoundNo Family History Records FoundNo Family History Records Found No data available for this section No Family History Records FoundNo Family History Records FoundNo Family History Records Found Advance Directives No Advanced Directives Records FoundDocuments on File Type Date Recorded Patient Preschool Director Expl anation Advance Directive(s) 10/02/2020 8:39 AM Advance Directive(s) 10/25/2017 10:59 AM Documents on File Type Date Recorded Patient Preschool Director Expl anation Advance Directive(s) 10/02/2020 8:39 AM Advance Directive(s) 10/25/2017 10:59 AM Reason for Referral Specialty Diagnoses / Procedures Referred By Naveen spencer Referred To Contact Gastroenterology Diagnoses Generalized abdominal pain Chronic constipation Gastroesophageal reflux disease, unspecified whether esophagitis present Screening for colon cancer Procedures CONSULT TO GASTROENTEROLOGY OFFICE/OUTPATIENT [facility] 60-74 MINUTES Ankit Martinez MD [address] [place] [address] Referral ID Status Reason Start Date Expiration Date Visits Requested Visits Authorized [id number] Authorized PCP Requested Referral 10/21/2021 10/21/2022 1 1 Specialty Diagnoses / Procedures Referred By Contac t Referred To Contact [facility] Diagnoses Encounter for screening mammogram for malignant neoplasm of breast Procedures JOSE M SCREENING SCREENING MAMMOGRAPHY BI 2-VIEW BREAST INC CAD Ankit Martinez MD [address] [place] [address] [facility] [address] [place] [address] Referral ID Status Reason Start Date Expiration Date Visits Requested Visits Authorized [id number] Authorized Auto-Generat ed Referral 10/21/2021 11/20/2022 1 1 Specialty Diagnoses / Procedures Referred By Contac t Referred To Contact [facility] Diagnoses Radiculopathy, thoracic region Procedures MRI THORACIC SPINE WO IVCON MRI SPINAL CANAL THORACIC W/O CONTRAST MATRL Otto Paul MD [address] [place] [address] [facility] Referral ID Status Reason Start Date Expiration Date V isits Requested Visits Authorized [id number] Closed Auto-Generate d Referral 12/08/2021 01/27/2022 1 1 Specialty Diagnoses / Procedures Referred By Contac t Referred To Contact Diagnoses Urethral caruncle Difficulty in micturition Procedures CONSULT TO URO GYNECOLOGY OFFICE/OUTPATIENT [facility] 60-74 MINUTES Yana Herrera APRN.CONFIDENTIAL SECRETARY [address] [place] [address] Referral ID Status Reason Start Date Expiration Date Visits Requested Visits Authorized [id number] Authorized PCP Requested Referral Auto-Generate d Referral 07/27/2022 07/27/2023 1 1 Specialty Diagnoses / Procedures Referred By Contac t Referred To Contact [facility] Diagnoses Encounter for gynecological examination with abnormal finding Procedures JOSE M SCREENING SCREENING MAMMOGRAPHY BI 2-VIEW BREAST INC CAD Yana Herrera APRN.CONFIDENTIAL SECRETARY [address] [place] [address] [facility] [address] [place] [address] Referral ID Status Reason Start Date Expiration Date Visits Requested Visits Authorized [id number] Pending Review Auto-Generat ed Referral 07/27/2022 2023 1 1 Specialty Diagnoses / Procedures Referred By Contac t Referred To Contact Ophthalmology Diagnoses Visit for eye and vision exam Procedures CONSULT TO OPHTHALMOLOGY OFFICE/OUTPATIENT [facility] 60-74 MINUTES Ankit Martinez MD [address] [place] [address] Referral ID Status Reason Start Date Expiration Date Visits Requested Visits Authorized [id number] Authorized PCP Requested Referral 08/18/2022 08/18/2023 1 1 Specialty Diagnoses / Procedures Referred By Contac t Referred To Contact [facility] Diagnoses Thoracic spondylosis without myelopathy Lumbosacral spondylosis without myelopathy Cervical spondylosis without myelopathy Procedures CONSULT TO PHYSICAL THERAPY PHYSICAL THERAPY EVALUATION [facility] COMPLEX 45 MINS Rebecca Baron APRN.CONFIDENTIAL SECRETARY [address] [place] [address] [facility] [place] [address] [place] [address] Referral ID Status Reason Start Date Expiration Date Visits Requested Visits Authorized [id number] Pending Review Auto-Generat ed Referral 3 05/12/2024 1 1 Medications Administered Section Inactive Administered Medications - up to 3 most recent administrations Medication Order MAR Action Action Date Dose Rate Site dexAMETHasone sodium phosphate 10 mg injection (DECADRON) 10 mg, OTHER, ONCE, 1 dose, On Wed11/07/21 at 1000 Given by LIP 11/07/2021 10:06 AM EDT 10 mg lidocaine (PF) 20 mg/mL (2 %) 200 mg injection (XYLOCAINE) 200 mg (10 mL), OTHER, ONCE, 1 dose, On Wed11/07/21 at 1000 Given by LIP 11/07/2021 10:06 AM EDT 200 mg lidocaine 10 mg/mL (1 %) 100 mg injection (XYLOCAINE) 100 mg, OTHER, ONCE, 1 dose, On Wed11/07/21 at [address] [facility] 11/07/2021 10:06 AM EDT 100 mg Active Administered Medications - up to 3 most recent administrations Medication Order MAR Action Action Date Dose Rate Site PHENYLephrine 2.5 % 1 Drop (AK-DILATE, JERRY-SYNEPHRINE) 1 Drop, BOTH EYES, DIRECTED, Starting on Wed01/01/23 at 1330, Until 01/02/23 at 0129, Administer for dilation PROTECT FROM LIGHT Given 01/01/2023 1:11 PM EDT 1 Drop proparacaine 0.5 % 1 Drop (ALCAINE) 1 Drop, BOTH EYES, DIRECTED, Starting on Wed01/01/23 at 1330, Until 01/02/23 at 0129, Administer for pneumo tonometry, tonopen tonometry, or pachymetry. In the event of a proparacaine shortage, administer tetracaine 0.5% ophthalmic drops 1 drop in the left eye as directed for pneumo tonometry, tonopen tonometry, or pachymetry Given 01/01/2023 1:11 PM EDT 1 Drop tropicamide 1 % 1 Drop (MYDRIACYL) 1 Drop, BOTH EYES, DIRECTED, Starting on Wed01/01/23 at 1330, Until 01/02/23 at 0129, Administer for dilation Given 01/01/2023 1:11 PM EDT 1 Drop Inactive Administered Medications - up to 3 most recent administrations Medication Order MAR Action Action Date Dose Rate Site BUPivacaine HCl 2.5 mg injection (SENSORCAINE) 2.5 mg, OTHER, ONCE, 1 dose, On Geri 01/14/23 at 1600 Given by LIP 01/14/2023 3:36 PM EDT 2.5 mg Other Health Concerns Infection Onset Date Last Indicated Resolved Time COVID-19 Rule-Out 08/12/2022 08/12/2022 Infection Onset Date Last Indicated Resolved Time COVID-19 Rule-Out 08/12/2022 08/12/2022 08/13/2022 5:29 AM EST Additional Source Comments INFORMATION SOURCE (unrecogn ized section and content) DATE CREATED AUTHOR AUTHOR'S ORGANIZ ATION 12/06/2018 [facility] DATE CREATED AUTHOR AUTHOR'S ORGANIZ ATION 07/12/2022 [facility] DATE CREATED AUTHOR AUTHOR'S ORGANIZ ATION 06/07/2023 [facility] ([place]) DATE CREATED AUTHOR AUTHOR'S ORGANIZ ATION 07/02/2023 [facility] DATE CREATED AUTHOR AUTHOR'S ORGANIZ ATION 07/06/2023 [facility] Source Comments (unrecognize d section and content) In the event this informatio n is protected by the Federal Confidentiality of Alcohol and Drug Abuse Patient Records regulations: The Federal rules restrict any use of the information to criminally investigate or prosecute any alcohol or drug abuse patient.[facility] event this information is protected by the Federal Confidentiality of Alcohol and Drug Abuse Patient Records regulations: The Federal rules restrict any use of the information to criminally investigate or prosecute any alcohol or drug abuse patient.[facility] the event this information is protected by the Federal Confidentiality of Alcohol and Drug Abuse Patient Records regulations: The Federal rules restrict any use of the information to criminally investigate or prosecute any alcohol or drug abuse patient.[facility] the event this information is protected by the Federal Confidentiality of Alcohol and Drug Abuse Patient Records regulations: The Federal rules restrict any use of the information to criminally investigate or prosecute any alcohol or drug abuse patient.[facility] the event this information is protected by the Federal Confidentiality of Alcohol and Drug Abuse Patient Records regulations: The Federal rules restrict any use of the information to criminally investigate or prosecute any alcohol or drug abuse patient.[facility] the event this information is protected by the Federal Confidentiality of Alcohol and Drug Abuse Patient Records regulations: The Federal rules restrict any use of the information to criminally investigate or prosecute any alcohol or drug abuse patient.[facility] the event this information is protected by the Federal Confidentiality of Alcohol and Drug Abuse Patient Records regulations: The Federal rules restrict any use of the information to criminally investigate or prosecute any alcohol or drug abuse patient.[facility] the event this information is protected by the Federal Confidentiality of Alcohol and Drug Abuse Patient Records regulations: The Federal rules restrict any use of the information to criminally investigate or prosecute any alcohol or drug abuse patient.[facility] the event this information is protected by the Federal Confidentiality of Alcohol and Drug Abuse Patient Records regulations: The Federal rules restrict any use of the information to criminally investigate or prosecute any alcohol or drug abuse patient.[facility] the event this information is protected by the Federal Confidentiality of Alcohol and Drug Abuse Patient Records regulations: The Federal rules restrict any use of the information to criminally investigate or prosecute any alcohol or drug abuse patient.[facility] the event this information is protected by the Federal Confidentiality of Alcohol and Drug Abuse Patient Records regulations: The Federal rules restrict any use of the information to criminally investigate or prosecute any alcohol or drug abuse patient.[facility] the event this information is protected by the Federal Confidentiality of Alcohol and Drug Abuse Patient Records regulations: The Federal rules restrict any use of the information to criminally investigate or prosecute any alcohol or drug abuse patient.[facility] the event this information is protected by the Federal Confidentiality of Alcohol and Drug Abuse Patient Records regulations: The Federal rules restrict any use of the information to criminally investigate or prosecute any alcohol or drug abuse patient.[facility] the event this information is protected by the Federal Confidentiality of Alcohol and Drug Abuse Patient Records regulations: The Federal rules restrict any use of the information to criminally investigate or prosecute any alcohol or drug abuse patient.[facility] the event this information is protected by the Federal Confidentiality of Alcohol and Drug Abuse Patient Records regulations: The Federal rules restrict any use of the information to criminally investigate or prosecute any alcohol or drug abuse patient.[facility] the event this information is protected by the Federal Confidentiality of Alcohol and Drug Abuse Patient Records regulations: The Federal rules restrict any use of the information to criminally investigate or prosecute any alcohol or drug abuse patient.[facility] the event this information is protected by the Federal Confidentiality of Alcohol and Drug Abuse Patient Records regulations: The Federal rules restrict any use of the information to criminally investigate or prosecute any alcohol or drug abuse patient.[facility] the event this information is protected by the Federal Confidentiality of Alcohol and Drug Abuse Patient Records regulations: The Federal rules restrict any use of the information to criminally investigate or prosecute any alcohol or drug abuse patient.[facility] the event this information is protected by the Federal Confidentiality of Alcohol and Drug Abuse Patient Records regulations: The Federal rules restrict any use of the information to criminally investigate or prosecute any alcohol or drug abuse patient.[facility] the event this information is protected by the Federal Confidentiality of Alcohol and Drug Abuse Patient Records regulations: The Federal rules restrict any use of the information to criminally investigate or prosecute any alcohol or drug abuse patient.[facility] the event this information is protected by the Federal Confidentiality of Alcohol and Drug Abuse Patient Records regulations: The Federal rules restrict any use of the information to criminally investigate or prosecute any alcohol or drug abuse patient.[facility] the event this information is protected by the Federal Confidentiality of Alcohol and Drug Abuse Patient Records regulations: The Federal rules restrict any use of the information to criminally investigate or prosecute any alcohol or drug abuse patient.[facility] the event this information is protected by the Federal Confidentiality of Alcohol and Drug Abuse Patient Records regulations: The Federal rules restrict any use of the information to criminally investigate or prosecute any alcohol or drug abuse patient.[facility] the event this information is protected by the Federal Confidentiality of Alcohol and Drug Abuse Patient Records regulations: The Federal rules restrict any use of the information to criminally investigate or prosecute any alcohol or drug abuse patient.[facility] the event this information is protected by the Federal Confidentiality of Alcohol and Drug Abuse Patient Records regulations: The Federal rules restrict any use of the information to criminally investigate or prosecute any alcohol or drug abuse patient.[facility] the event this information is protected by the Federal Confidentiality of Alcohol and Drug Abuse Patient Records regulations: The Federal rules restrict any use of the information to criminally investigate or prosecute any alcohol or drug abuse patient.[facility] the event this information is protected by the Federal Confidentiality of Alcohol and Drug Abuse Patient Records regulations: The Federal rules restrict any use of the information to criminally investigate or prosecute any alcohol or drug abuse patient.[facility] the event this information is protected by the Federal Confidentiality of Alcohol and Drug Abuse Patient Records regulations: The Federal rules restrict any use of the information to criminally investigate or prosecute any alcohol or drug abuse patient.[facility] the event this information is protected by the Federal Confidentiality of Alcohol and Drug Abuse Patient Records regulations: The Federal rules restrict any use of the information to criminally investigate or prosecute any alcohol or drug abuse patient.[facility] the event this information is protected by the Federal Confidentiality of Alcohol and Drug Abuse Patient Records regulations: The Federal rules restrict any use of the information to criminally investigate or prosecute any alcohol or drug abuse patient.[facility] the event this information is protected by the Federal Confidentiality of Alcohol and Drug Abuse Patient Records regulations: The Federal rules restrict any use of the information to criminally investigate or prosecute any alcohol or drug abuse patient.[facility] the event this information is protected by the Federal Confidentiality of Alcohol and Drug Abuse Patient Records regulations: The Federal rules restrict any use of the information to criminally investigate or prosecute any alcohol or drug abuse patient.[facility] the event this information is protected by the Federal Confidentiality of Alcohol and Drug Abuse Patient Records regulations: The Federal rules restrict any use of the information to criminally investigate or prosecute any alcohol or drug abuse patient.[facility] the event this information is protected by the Federal Confidentiality of Alcohol and Drug Abuse Patient Records regulations: The Federal rules restrict any use of the information to criminally investigate or prosecute any alcohol or drug abuse patient.[facility] the event this information is protected by the Federal Confidentiality of Alcohol and Drug Abuse Patient Records regulations: The Federal rules restrict any use of the information to criminally investigate or prosecute any alcohol or drug abuse patient.[facility] the event this information is protected by the Federal Confidentiality of Alcohol and Drug Abuse Patient Records regulations: The Federal rules restrict any use of the information to criminally investigate or prosecute any alcohol or drug abuse patient.[facility]In the event this information is protected by the Federal Confidentiality of Alcohol and Drug Abuse Patient Records regulations: The Federal rules restrict any use of the information to criminally investigate or prosecute any alcohol or drug abuse patient.[facility] the event this information is protected by the Federal Confidentiality of Alcohol and Drug Abuse Patient Records regulations: The Federal rules restrict any use of the information to criminally investigate or prosecute any alcohol or drug abuse patient.[facility]In the event this information is protected by the Federal Confidentiality of Alcohol and Drug Abuse Patient Records regulations: The Federal rules restrict any use of the information to criminally investigate or prosecute any alcohol or drug abuse patient.[facility]In the event this information is protected by the Federal Confidentiality of Alcohol and Drug Abuse Patient Records regulations: The Federal rules restrict any use of the information to criminally investigate or prosecute any alcohol or drug abuse patient.[facility]In the event this information is protected by the Federal Confidentiality of Alcohol and Drug Abuse Patient Records regulations: The Federal rules restrict any use of the information to criminally investigate or prosecute any alcohol or drug abuse patient.[facility]In the event this information is protected by the Federal Confidentiality of Alcohol and Drug Abuse Patient Records regulations: The Federal rules restrict any use of the information to criminally investigate or prosecute any alcohol or drug abuse patient.[facility]In the event this information is protected by the Federal Confidentiality of Alcohol and Drug Abuse Patient Records regulations: The Federal rules restrict any use of the information to criminally investigate or prosecute any alcohol or drug abuse patient.[facility]In the event this information is protected by the Federal Confidentiality of Alcohol and Drug Abuse Patient Records regulations: The Federal rules restrict any use of the information to criminally investigate or prosecute any alcohol or drug abuse patient.[facility]In the event this information is protected by the Federal Confidentiality of Alcohol and Drug Abuse Patient Records regulations: The Federal rules restrict any use of the information to criminally investigate or prosecute any alcohol or drug abuse patient.[facility]In the event this information is protected by the Federal Confidentiality of Alcohol and Drug Abuse Patient Records regulations: The Federal rules restrict any use of the information to criminally investigate or prosecute any alcohol or drug abuse patient.[facility]In the event this information is protected by the Federal Confidentiality of Alcohol and Drug Abuse Patient Records regulations: The Federal rules restrict any use of the information to criminally investigate or prosecute any alcohol or drug abuse patient.[facility]In the event this information is protected by the Federal Confidentiality of Alcohol and Drug Abuse Patient Records regulations: The Federal rules restrict any use of the information to criminally investigate or prosecute any alcohol or drug abuse patient.[facility] Reason for Visit (unrecogniz ed section and content) Specialty Diagnoses / Procedures Referred By Contac t Referred To Contact Pain Management / PAIN MANAGEMENT Diagnoses Myalgia, other site TPI/ Med refill Procedures TRIGGER POINT INJECTION MULTI 3+ MUSCLE GRP SPECIALTY INJECTION Sherry Florez MD [address] [facility] [address] [place] [address] Rebecca Baron APRN.CONFIDENTIAL SECRETARY [address] [place] [address] Referral ID Status Reason Start Date Expiration Date Visits Re quested Visits Authorized [id number] Closed 06/28/2022 06/27/2023 1 1 Reason Comments Rx Refills Reason Comments Opened In Error Reason Comments 6 Month Exam Reason Onset Date Comments Refill Request 10/21/2021 Reason Comments Procedure Specialty Diagnoses / Procedures Referred By Contac t Referred To Contact Pain Management / PAIN MANAGEMENT Diagnoses Spondylosis without myelopathy or radiculopathy, cervical region auth is good Cervical RFA C3-4, C4-5, C5-6 Right Procedures DSTR NROLYTC AGNT PARVERTEB FCT SNGL CRVCL/THORA DSTR NROLYTC AGNT PARVERTEB FCT ADDL CRVCL/THORA DSTR NROLYTC AGNT PARVERTEB FCT ADDL CRVCL/THORA PROCEDURE 20 Otto Paul MD [address] [place] [address] Otto Paul MD [address] [place] [address] Referral ID Status Reason Start Date Expiration Date V isits Requested Visits Authorized [id number] Authorized 10/01/2021 06/27/2022 2 2 Reason Onset Date Comments Transition Of Care 11/12/2021 Reason Comments Transition Of Care Reason Comments Follow Up Injection Reason Comments Patient Question Reason Comments Abdominal Pain Constipation, troubl e swallowing, appetite change. Labs 11/19/21 Specialty Diagnoses / Procedures Referred By Contac t Referred To Contact Gastroenterology Diagnoses Generalized abdominal pain Chronic constipation Gastroesophageal reflux disease, unspecified whether esophagitis present Screening for colon cancer Procedures CONSULT TO GASTROENTEROLOGY OFFICE/OUTPATIENT FOR[facility]LY [facility], [facility] MDM 60-74 MINUTES Ankit Martinez MD [address] [place] [address] Referral ID Status Reason Start Date Expiration Date V isits Requested Visits Authorized [id number] Closed PCP Requested Referral 10/21/2021 10/21/2022 1 1 Reason Comments bridge script Reason Comments Refill Request Reason Comments Pediatric Physician - Other potential clini alfredo concern opiod risk management: concurrent use of opioids and muscle relaxants for >=30days Reason Comments Insurance Authorization [facility] (DENIED) Medication Authorization medication Tiza nidine 2 mg tab Specialty Diagnoses / Procedures Referred By Contac t Referred To Contact MR IMAGING Diagnoses Radiculopathy, thoracic region Procedures MRI THORACIC SPINE WO IVCON MRI SPINAL CANAL THORACIC W/O CONTRAST MATRL Otto Paul MD [address] [place] [address] Mr Imaging Referral ID Status Reason Start Date Expiration Date V isits Requested Visits Authorized [id number] Closed Auto-Generate d Referral 12/08/2021 01/27/2022 1 1 Reason Comments Appointment EGD and Colonoscopy preparation instructions Reason Comments Established Patient Reason Comments Follow Up Rx Refills [place] Specialty Diagnoses / Procedures Referred By Contac t Referred To Contact Pain Management / PAIN MANAGEMENT Diagnoses refill Procedures OFFICE/OUTPATIENT ESTABLISHED MOD MDM 30-39 MIN EST PATIENT Lillie Bran, DERMATOLOGY SALES REPRESENTATIVE.CONFIDENTIAL SECRETARY [address] [facility] [address] [place] [address] Lillie Bran, DERMATOLOGY SALES REPRESENTATIVE.CONFIDENTIAL SECRETARY [address] [place] [address] Referral ID Status Reason Start Date Expiration Date Visits Re quested Visits Authorized [id number] Closed 06/28/2021 06/27/2022 1 1 Reason Comments External documents Reason Comments Recheck Dysphagia, choking, chest pain, Nausea EGD/Colon 01/20/22 Reason Onset Date Comments Transition Of Care 03/24/2022 Reason Comments Results Labs Reason Comments Follow Up Rx Refills Reason Comments Follow Up Back Pain Middle Leg Pain Pain (foot) Bilateral Reason Comments Well Woman Reason Comments Medication Request Reason Comments Cough Chest congestion, so b x 5 days Reason Comments Results Reason Comments Follow Up Reason Comments Low Back Pain Leg Pain Reason Onset Date Comments Retail Special Event Associate Ready 07/07/2022 Radiology Disc Reason Comments Follow Up Rx Refills Neck Pain Back Pain Reason Comments Cough Sob, wheezing, fatig ue x 6 days Reason Comments Comprehensive Eye Exam Specialty Diagnoses / Procedures Referred By Contac t Referred To Contact Ophthalmology Diagnoses Visit for eye and vision exam Procedures CONSULT TO OPHTHALMOLOGY OFFICE/OUTPATIENT FOR[facility] MDM 60-74 MINUTES Ankit Martinez MD [address] [place] [address] Referral ID Status Reason Start Date Expiration Date V isits Requested Visits Authorized [id number] Closed PCP Requested Referral 08/18/2022 08/18/2023 1 1 Reason Onset Date Comments Follow Up 3-4 month follow up Immunizations 04/05/2023 Flu vaccination Reason Comments Rx Refills Hydrocodone Neck Pain Back Pain Top-Mid Reason Comments PT Appointment Care Teams (unrecognized sec tion and content) Experimental Physicist Relationship Specialty Start Date End Date Ankit Martinez MD [address] [place] [address] PCP - General 01/08/09 Experimental Physicist Relationship Specialty Start Date End Date Ankit Martinez MD [address] [facility] [place] [address] PCP - General 01/08/09 Experimental Physicist Relationship Specialty Start Date End Date Ankit Martinez MD [address] [facility] [place] [address] PCP - General 01/08/09 Experimental Physicist Relationship Specialty Start Date End Date Ankit Martinez MD [address] [place] [address] PCP - General 01/08/09 Experimental Physicist Relationship Specialty Start Date End Date Ankit Martinez MD [address] [place] [address] PCP - General 01/08/09 Experimental Physicist Relationship Specialty Start Date End Date Ankit Martinez MD [address] [place] [address] PCP - General 01/08/09 Experimental Physicist Relationship Specialty Start Date End Date Ankit Martinez MD [address] [place] [address] PCP - General 01/08/09 Experimental Physicist Relationship Specialty Start Date End Date Ankit Martinez MD [address] [place] [address] PCP - General 01/08/09 Experimental Physicist Relationship Specialty Start Date End Date Ankit Martinez MD [address] [place] [address] PCP - General 01/08/09 Experimental Physicist Relationship Specialty Start Date End Date nAkit Martinez MD [address] [place] [address] PCP - General 01/08/09 Experimental Physicist Relationship Specialty Start Date End Date Ankit Martinez MD [address] [place] [address] PCP - General 01/08/09 Experimental Physicist Relationship Specialty Start Date End Date Ankit Martinez MD [address] [place] [address] PCP - General 01/08/09 Experimental Physicist Relationship Specialty Start Date End Date Ankit Martinez MD [address] [place] [address] PCP - General 01/08/09 Experimental Physicist Relationship Specialty Start Date End Date Ankit Martinez MD [address] [place] [address] PCP - General 01/08/09 Experimental Physicist Relationship Specialty Start Date End Date Ankit Martinez MD [address] [place] [address] PCP - General 01/08/09 Experimental Physicist Relationship Specialty Start Date End Date Ankit Martinez MD [address] [place] [address] PCP - General 01/08/09 Experimental Physicist Relationship Specialty Start Date End Date Ankit Martinez MD [address] [place] [address] PCP - General 01/08/09 Experimental Physicist Relationship Specialty Start Date End Date Ankit Martinez MD [address] [place] [address] PCP - General 01/08/09 Experimental Physicist Relationship Specialty Start Date End Date Ankit Martinez MD [address] [place] [address] PCP - General 01/08/09 Experimental Physicist Relationship Specialty Start Date End Date Ankit Martinez MD [address] [place] [address] PCP - General 01/08/09 Experimental Physicist Relationship Specialty Start Date End Date Ankit Martinez MD [address] [place] [address] PCP - General 01/08/09 Experimental Physicist Relationship Specialty Start Date End Date Ankit Martinez MD [address] [place] [address] PCP - General 01/08/09 Experimental Physicist Relationship Specialty Start Date End Date Ankit Martinez MD [address] [place] [address] PCP - General 01/08/09 Experimental Physicist Relationship Specialty Start Date End Date Ankit Martinez MD [address] [place] [address] PCP - General 01/08/09 Experimental Physicist Relationship Specialty Start Date End Date Ankit Martinez MD [address] [place] [address] PCP - General 01/08/09 Experimental Physicist Relationship Specialty Start Date End Date Ankit Martinez MD [address] [place] [address] PCP - General 01/08/09 Experimental Physicist Relationship Specialty Start Date End Date Ankit Martinez MD [address] [place] [address] PCP - General 01/08/09 Experimental Physicist Relationship Specialty Start Date End Date Ankit Martinez MD [address] [facility] [place] [address] PCP - General 01/08/09 Experimental Physicist Relationship Specialty Start Date End Date Ankit Martinez MD [address] [facility] [place] [address] PCP - General 01/08/09 Experimental Physicist Relationship Specialty Start Date End Date Ankit Martinez MD [address] [place] [address] PCP - General 01/08/09 Experimental Physicist Relationship Specialty Start Date End Date Ankit Martinez MD [address] [place] [address] PCP - General 01/08/09 Experimental Physicist Relationship Specialty Start Date End Date Ankit Martinez MD [address] [place] [address] PCP - General 01/08/09 Experimental Physicist Relationship Specialty Start Date End Date Ankit Martinez MD [address] [place] [address] PCP - General 01/08/09 Experimental Physicist Relationship Specialty Start Date End Date Ankit Martinez MD [address] [place] [address] PCP - General 01/08/09 Experimental Physicist Relationship Specialty Start Date End Date Ankit Martinez MD [address] [place] [address] PCP - General 01/08/09 Experimental Physicist Relationship Specialty Start Date End Date Ankit Martinez MD [address] [place] [address] PCP - General 01/08/09 Experimental Physicist Relationship Specialty Start Date End Date Ankit Martinez MD [address] [place], [place] [address] PCP - General 01/08/09 Care Team (unrecognized sect ion and content) Care Team Personnel Name: ANKIT MARTINEZ MD Member Role: Primary Care Physician Address: Address: [address] [place] [id number]- Name: Elizabeth Shell Coder Position: HIM: Coders Member Role: HIM: Coders Name: STANLEY HILL DO Position: ED Physician Member Role: ED Physician Address: Address: [address] [place] [address]- Name: Rosenda Fishman RN Position: RN Member Role: RN Care Team Related Persons Name: JULIA GLORIA FOR RECORDS PERTAINING TO PATIENTS WHO ARE OR HAVE BEEN ENROLLED IN A CHEMICAL DEPENDENCY/SUBSTANCEABUSE PROGRAM, SOME INFORMATION MAY BE OMITTED. This clinical summary was aggregated from multiple sources. Caution should be exercised in using it in the provision of clinical care. This summary normalizes information from multiple sources, and as a consequence, information in this document may materially change the coding, format and clinical context of patient data. In addition, data may be omitted in some cases. CLINICAL DECISIONS SHOULD BE BASED ON THE PRIMARY CLINICAL RECORDS. [facility] [employer] provides no warranty or guarantee of the accuracy or completeness of information in this document.
--- NOTE | 2023-07-08 17:37 | EDS_ITS ---
HPI History of Present Illness Chief Complaint: Cough Narrative Narrative: 67-year-old female with history of COPD presenting with shortness of breath in the last couple days. She has not any fever but does feel as if she is come down with something. Mild chills and bodyaches. Patient states she does feel short of breath. She normally wears 2 L of oxygen at bedtime but does not wear it during the day but she has been wearing it during the day due to dyspnea and oxygen levels of 87 to 88% at home. Denies chest pain. She is eating and drinking normally. She did have some mild nausea which has improved. [facility] Medical History (Updated 07/08/23 @ 17:[address] Holly Moses MD) Anxiety and depression Asthma Chronic hypoxemic respiratory failure COPD (chronic obstructive pulmonary disease) Emphysema lung GERD (gastroesophageal reflux disease) History of diabetes mellitus History of essential hypertension Insomnia Kidney stones Mediastinal lymphadenopathy Osteoporosis Tobacco dependence due to cigarettes Home Medications hydrocodone-acetaminophen 5-325mg 5mg-325mg 1 ea PO PRN PRN Pain 09/30/17 [History Last Taken 02/16/22 06:00] polyethylene glycol 3350 17 gram oral powder packet 17 gm PO DAILY PRN Constipation 09/30/17 [History Last Taken 02/15/22] cholecalciferol (vitamin D3) 50 mcg (2,000 unit) tablet 2,000 unit PO DAILY supplement 11/18/18 [History Last Taken 02/15/22] hydroxyzine HCl 25 mg tablet 25 mg PO BID PRN PRN Anxiety 11/18/18 [History Last Taken 02/15/22 22:00] famotidine 20 mg tablet 20 mg PO BID 12/04/21 [History Last Taken 02/15/22] tizanidine 4 mg capsule 4 mg PO BID PRN MUSCLE SPASMS 12/04/21 [History Last Taken 02/15/22 22:00] metoprolol succinate 25 mg tablet,extended release 24 hr 25 mg PO DAILY 02/05/22 [History Last Taken 02/16/22] albuterol sulfate 2.5 mg/3 mL (0.083 %) solution for nebulization 2.5 mg (3 mL) inhalation Q2H PRN PRN Dyspnea, wheezing #180 vials 06/18/22 [Rx Last Taken Unknown] albuterol sulfate 90 mcg/actuation aerosol inhaler (Ventolin HFA) 2 puff inhalation Q4H PRN shortness of breath or wheezing #8.5 grams 06/18/22 [Rx Last Taken Unknown] loratadine 10 mg capsule 10 mg PO DAILY PRN Allergies #90 caps 06/18/22 [Rx Last Taken Unknown] amoxicillin 875 mg-potassium clavulanate 125 mg tablet 1 tab PO BID #20 tabs 04/23/23 [Rx Last Taken Unknown] fluticasone propionate 50 mcg/actuation nasal spray,suspension (Flonase Allergy Relief) 1 spray intranasal BID #15.8 mL 04/23/23 [Rx Last Taken Unknown] guaifenesin 1,200 mg tablet, extended release 12 hr 1,200 mg PO Q12H #60 tabs 04/23/23 [Rx Last Taken Unknown] ipratropium 20 mcg-albuterol 100 mcg/actuation mist for inhalation (Combivent Respimat) 1 puff inhalation Q6H #4 grams 04/23/23 [Rx Last Taken Unknown] prednisone 10 mg tablet 10 mg PO QDAY #30 tabs 04/23/23 [Rx Last Taken Unknown] mometasone-formoterol HFA 200 mcg-5 mcg/actuation aerosol inhaler (Dulera) 2 puff inhalation BID #13 grams 06/14/23 [Rx Last Taken Unknown] Allergy/AdvReac Type Severity Reaction Status Date / Time budesonide AdvReac Severe Shortness Verified 07/08/23 14:19 [From [employer]] of breath formoterol AdvReac Severe Shortness Verified 07/08/23 14:19 [From [employer]] of breath glycopyrrolate AdvReac Severe Shortness Verified 07/08/23 14:19 [From [employer]] of breath aclidinium AdvReac Other Verified 07/08/23 14:19 [From [employer]] doxycycline AdvReac Other Verified 07/08/23 14:19 gabapentin AdvReac Other Verified 07/08/23 14:19 ipratropium AdvReac Other Verified 07/08/23 14:19 levofloxacin [From Levaquin] AdvReac Other Verified 07/08/23 14:19 methylprednisolone AdvReac Other Verified 07/08/23 14:19 sertraline [From Zoloft] AdvReac Upset Verified 07/08/23 14:19 Stomach sulfamethoxazole AdvReac Other Verified 07/08/23 14:19 [From Bactrim] trimethoprim [From Bactrim] AdvReac Other Verified 07/08/23 14:19 umeclidinium AdvReac Other Verified 07/08/23 14:19 [From [employer] Ellipta] Family History Grandmother Cancer Lung Brother Diabetes Hypertension Father Hypertension Embolism Sister Hypertension Diabetes Surgical History History of cholecystectomy Social History Smoking Status: Current every day smoker tobacco type: cigarettes Tobacco: How many years used: 47 second hand exposure: Yes alcohol intake: never substance use type: does not use caffeine: Yes Type: coffee what type of physical activity do you participate in: none ROS ROS ED Constitutional Constitutional ED: Reports chills Eyes Eyes: Denies blurry vision or change in vision ENT ENT ED: Reports rhinorrhea; Denies sore throat Cardiovascular Cardiovascular: Denies chest pain or palpitations Respiratory/Chest Respiratory/Chest: Reports cough and dyspnea Gastrointestinal Gastrointestinal: Reports nausea; Denies abdominal pain or vomiting Genitourinary Genitourinary ED: Denies dysuria or hematuria Musculoskeletal Musculoskeletal: Reports myalgias; Denies arthralgias or back pain Integumentary Denies abscess or Abrasions Neurologic Neurologic: Denies headache(s) or paresthesias Psychiatric Psychiatric: Denies anxiety or depression EXAM Physical Exam Const Vital Signs: 07/08/23 14:17 07/08/23 15:56 07/08/23 15:42 Temperature 97.5 F L Temperature Source Temporal Pulse Rate 80 77 Respiratory Rate 16 18 Respiratory Effort Normal Non-Labored Respiratory Depth Normal Respiratory Pattern Normal Normal Blood Pressure 115/56 L Blood Pressure Mean 75 Pulse Ox 93 Oxygen Delivery Method Room Air Room Air General Appearance ED: NAD; Negative for pallor HEENT Reports moist mucous membranes Eyes PERRL and EOMs intact bilaterally Neck no lymphadenopathy and supple Resp normal respiratory effort and clear to auscultation bilaterally Auscultation: Negative for rales, rhonchi or wheezes Cardio regular rate and regular rhythm GI non-tender Neuro oriented x3 Sensorium / Orientation: alert Motor Exam: strength 5/5 throughout Skin no wounds General Skin Exam: Negative for jaundice or pallor MDM MDM MDM Narrative Medical decision making narrative: 67-year-old female presenting with generalized weakness and shortness of breath patient has history of COPD. She is not wheezing on examination but does have diminished breath sounds. She was given breathing treatments and prednisone. Differential includes COVID, influenza, pneumonia, COPD exacerbation, hypoxia, dehydration, anemia, electrolyte abnormalities. CBC was obtained to assess white blood cell count, hemoglobin, platelets. BMP to assess renal function, electrolytes, glucose. Clinically low suspicion for ACS or CHF. CBC shows normal white blood cell count of 4.6. Hemoglobin stable at 13.4. Platelets normal at 184. Renal function is within normal limits. Sodium slightly low at 130. Glucose slightly low at 79. Chest x-ray interpretation shows no acute process. COVID test came back positive today. Patient ambulated in the hallway and dropped to 79%. Given this she will need to be admitted. Discussed with hospitalist for admission. Impression: 1. COVID-19 2. COPD exacerbation 3. Hypoxic respiratory failure Lab Data Attestation: I reviewed the patient's lab results. Labs: Laboratory Results - last 24 hr 07/08/23 15:10 WBC 4.6 RBC 4.33 Hgb 13.4 Hct 40.4 MCV 93.3 MCH 30.9 MCHC 33.2 RDW Std Deviation 41.3 RDW Coeff of Stormy 11.9 Plt Count 184 MPV 9.2 Immature Gran % (Auto) 0.400 Neut % (Auto) 70.8 H Lymph % (Auto) 15.2 L Sumter % (Auto) 13.2 H Eos % (Auto) 0.2 Baso % (Auto) 0.2 Absolute Neuts (auto) 3.2 Absolute Lymphs (auto) 0.69 L Nucleated RBC % 0 Sodium 130 L Potassium 3.6 Chloride 95 L Carbon Dioxide 28.0 Anion Gap 7 BUN 9 Creatinine 0.60 Estim Creat Clear Calc 52.90 Est GFR (MDRD) Af Amer 129 Est GFR (MDRD) Non-Af 107 BUN/Creatinine Ratio 15.1 Glucose 79 Calcium 8.2 L Radiography Diagnostic Testing: Clinical Impression(s) from Imaging Studies Chest X-Ray 07/08/23 14:30 IMPRESSION: Stable examination. Electronically Signed: Hammad Middleton MD at 14:42 EST , Discharge Plan Triage Chief Complaint: Cough ED Provider: Raghu Sorensen Dx/Rx/DC Orders Primary Care Provider: Krish Martinez
[2023-07-08 17:44] LABS: D-Dimer Quantitative (DVT/PE) 0.43 FEU/ug/m (0.27-0.49)
[2023-07-08 17:59] LABS: CPK Total, Creatine Kinase 112 U/L (26-192); Ferritin 102 ng/mL (8-252); LDH 178 U/L (84-246); Troponin-I HS 8 pg/mL (3.0-54.0)
[2023-07-08 18:18] LABS: Erythrocyte Sedimentation Rate 34 mm/hr (0-30)
[2023-07-08 18:40] VITALS: BMI 18.7
[2023-07-08 18:47] VITALS: BP 140/55; PULSE 81; RESP 18; TEMP 36.9; O2SAT 95
[2023-07-08] MEDS: Ondansetron 4 MG/2 ML Vial IV (18:49)
[2023-07-08] MEDS: 0.9% Saline Lock 10 ML Syringe IV (18:49)
[2023-07-08 19:13] LABS: Procalcitonin < 0.04 ng/mL (0.00-0.09)
[2023-07-08] MEDS: Remdesivir 200 MG in 0.9% Normal Saline (250mL Bag) 210 ML 250 MG IV (20:26)
[2023-07-08] MEDS: 0.9% Normal Saline (250mL Bag) 250 ML 15 ML IV (20:26)
[2023-07-08] MEDS: Fluticasone 0.05% 1 SPRAY NASAL.SRY NASAL (20:27)
[2023-07-08] MEDS: Enoxaparin 30 MG/0.3 ML Syringe SC (20:28)
[2023-07-08] MEDS: dexAMETHasone 4 MG/ML Vial 6 MG IV (20:28)
[2023-07-08] MEDS: Famotidine 20 MG Tablet PO (20:28)
[2023-07-08] MEDS: HYDROcodone Bitartrate/Apap 5/325 Tablet PO (20:45)
[2023-07-08 23:40] VITALS: PULSE 65; RESP 16
[2023-07-09] VITALS (11 sets, daily range): BP systolic 111–143; BP diastolic 40–57; PULSE 55–72; RESP 18; TEMP 36.6–37.1; O2SAT 96–99; BMI 19.3
[2023-07-09 05:20] LABS: Absolute Lymphocyte Count 0.49 X10^3/uL (0.83-4.51); Absolute Neutrophil Count 2.6 X10^3/uL (2.0-7.7); Hematocrit 36.4 % (37-47); Hemoglobin 12.2 g/dL (12.0-15.0); Lymphocyte # 0.49 X10^3/ul (0.83-4.51); Lymphocyte % 14.3 % (19-41); Mean Corp Hgb Conc 33.5 g/dL (32-36); Mean Corpuscular Hgb 31.3 pg (27.0-32.0); Mean Corpuscular Volume 93.3 fL (81-99); Mean Platelet Vol. 9.3 fl (6.2-12.0); Monocyte# 0.31 X10^3/uL; Monocyte% 9.1 % (0-10); NRBC Flagged by Analyzer 0 % (0-5); Neutrophil # 2.61 X10^3/uL (2.7-7.7); Neutrophil % 76.3 % (47-70); POSITIVE DIFFERENTIAL YES; Platelet Count 203 K/mm3 (150-450); RBC Distribution Width CV 11.9 % (11.6-14.6); RBC Distribution Width SD 40.7 fl (35.1-43.9); White Blood Count 3.4 K/mm3 (4.4-11.0)
[2023-07-09 05:31] LABS: Differential Indicated SCAN CRITERIA MET
[2023-07-09] MEDS: HYDROcodone Bitartrate/Apap 5/325 Tablet PO ×3 (05:47→20:19)
[2023-07-09 05:48] LABS: Differential Comment SCANNED
[2023-07-09 05:49] LABS: AST(SGOT) 19 U/L (15-37); Alanine Aminotransfer ALT/SGPT 15 U/L (13-56); Albumin, Serum 2.9 g/dL (3.2-5.0); Alkaline Phosphatase 61 U/L (45-117); Anion Gap 4 (5-15); BUN 12 mg/dL (7-18); BUN/Creat Ratio 23.1 RATIO (10-20); Calcium,Total 7.9 mg/dL (8.5-10.1); Chloride 104 mmol/L (98-107); Creatinine, Serum 0.52 mg/dL (0.55-1.02); EST Glomerular Filtration Rate 126 mL/min (>60); Est Glom Filt Rate - Afr Amer 152 mL/min (>60); Estimated Creatinine Clearance 51.46 ml/min; Glucose 162 mg/dL (74-106); Potassium 4.2 mmol/L (3.5-5.1); Protein, Total 5.9 g/dL (6.4-8.2); Sodium Level 136 mmol/L (136-145)
[2023-07-09] MEDS: Ipratropium/Albuterol Sulfate 3 ML AMPUL.NEB INHALATION ×4 (06:55→19:37)
--- NOTE | 2023-07-09 07:42 | PCM.PN.HOSP ---
Reason for Visit Reason for Visit: Diagnoses Chronic obstructive pulmonary disease with (acute) exacerbation (07/08/23) COVID-19 (07/08/23) Objective Data Objective Data Vital Signs: Vital Signs Temp Pulse Resp BP Pulse Ox O2 Del Method O2 Flow Rate 97.9 F 55 L 18 117/57 L 98 Nasal Cannula 3 07/09/23 05:42 07/09/23 06:56 07/09/23 06:56 07/09/23 05:42 07/09/23 06:56 07/09/23 06:56 07/09/23 06:56 Oxygen Flow Rate (L/min) 3 Oxygen Delivery Method Nasal Cannula Weight: 102 lb 8.239 oz Body Mass Index (BMI) 19.3 Intake & Output: Intake and Output for Last 24 Hours 07/07/23 07/08/23 07/09/23 23:59 23:59 23:59 Intake Total 200 / 200 620.75 / 620.75 Balance 200 / 200 620.75 / 620.75 Lab / Micro Data 07/09/23 05:00 07/09/23 05:00 Labs: Laboratory Results - last 24 hr 07/08/23 15:10: WBC 4.6, RBC 4.33, Hgb 13.4, Hct 40.4, MCV 93.3, MCH 30.9, MCHC 33.2, RDW Std Deviation 41.3, RDW Coeff of Stormy 11.9, Plt Count 184, MPV 9.2, Immature Gran % (Auto) 0.400, Neut % (Auto) 70.8 H, Lymph % (Auto) 15.2 L, [place] % (Auto) 13.2 H, Eos % (Auto) 0.2, Baso % (Auto) 0.2, Absolute Neuts (auto) 3.2, Absolute Lymphs (auto) 0.69 L, Nucleated RBC % 0, ESR 34 H, D-Dimer Quant (PE/DVT) 0.43, Sodium 130 L, Potassium 3.6, Chloride 95 L, Carbon Dioxide 28.0, Anion Gap 7, BUN 9, Creatinine 0.60, Estim Creat Clear Calc 52.90, Est GFR (MDRD) Af Amer 129, Est GFR (MDRD) Non-Af 107, BUN/Creatinine Ratio 15.1, Glucose 79, Calcium 8.2 L, Ferritin 102, Lactate Dehydrogenase 178, Total Creatine Kinase 112, Troponin I High Sens 8, C-React Prot Ext Range 12.10 H, B-Natriuretic Peptide 36.0, Procalcitonin < 0.04 07/09/23 05:00: WBC 3.4 L, RBC 3.90 L, Hgb 12.2, Hct 36.4 L, MCV 93.3, MCH 31.3, MCHC 33.5, RDW Std Deviation 40.7, RDW Coeff of Stormy 11.9, Plt Count 203, MPV 9.3, Immature Gran % (Auto) 0.300, Neut % (Auto) 76.3 H, Lymph % (Auto) 14.3 L, [place] % (Auto) 9.1, Eos % (Auto) 0.0, Baso % (Auto) 0.0, Absolute Neuts (auto) 2.6, Absolute Lymphs (auto) 0.49 L, Nucleated RBC % 0, Differential Comment SCANNED, Diff Path Review October, Sodium 136, Potassium 4.2, Chloride 104, Carbon Dioxide 28.0, Anion Gap 4 L, BUN 12, Creatinine 0.52 L, Estim Creat Clear Calc 51.46, Est GFR (MDRD) Af Amer 152, Est GFR (MDRD) Non-Af 126, BUN/Creatinine Ratio 23.1 H, Glucose 162 H, Calcium 7.9 L, Total Bilirubin 0.10 L, AST 19, ALT 15, Alkaline Phosphatase 61, Total Protein 5.9 L, Albumin 2.9 L, Globulin 3.0, Albumin/Globulin Ratio 1.0 Micro: Microbiology 07/08/23 14:21 Mucosa - Nasopharyngeal SARS-CoV-2, Influenza & RSV (PCR) - Final SARS-CoV-2 (COVID 19 PCR) Radiography Diagnostic Testing: Radiology Impression Chest X-Ray 07/08/23 14:30 IMPRESSION: Stable examination. Electronically Signed: Hammad Middleton MD at 14:42 EST , Physical Exam Narrative Seen and examined. Patient is stated she is sick for about 2 to 3 days. She felt like chills but denies fever. She has cough and whitish sputum, generalized bodyaches and more short of breath. Usually she wears 2 L of oxygen at bedtime but she is wearing throughout the day. Physical exam general: Alert, Oriented x3, Cooperative HEENT: Atraumatic, PERRLA, EOMI, Normocephalic Oral: No Gingival or Mucosal Lesions/ Ulcerations Neck: Supple, No JVD, Negative Carotid Bruits Lungs: Air entry diminished in bilateral lungs. Bilateral coarse crepitations/wheezing. Dyspnea on mild exertion. Cardiovascular: Regular rate, Regular Rhythm, Normal S1, Normal S2, No murmurs Abdomen: Bowel Sounds Present, Soft, Non Tender, Non-Distended : No renal angle tenderness. No suprapubic tenderness. Extremities: No edema, Capillary Refill Less than 3 Seconds Skin: No rashes, No breakdown Musculoskeletal: No Tenderness to Palpation of Joints or Extremities Neurological: Cranial nerves II-XII grossly intact, DTR 2+/4. No acute focal neurological deficit. Psych/Mental Status: Flat affect. Assessment & Plan Assessment/Plan (1) COVID-19: (2) COPD exacerbation: PLAN: Plan The patient is a 67 [facility] breath for last couple days chills, body aches. She has been wearing her home oxygen 2 L throughout the day which she normally wears at night. Pulse ox was 87 to 88% at home. Denies chest pain. #1. Acute COPD exacerbation w/ Acute Hypoxic on Chronic Hypoxic Respiratory Failure (2L NC q HS only) due to COVID-19 viral bronchitis: Patient is being on MedSurg floor. She was hypoxic 87 to 88% on 2 L of home oxygen. My leukopenia. CRP elevated but D-dimer CK, troponin, LDH and ferritin are normal. Procalcitonin normal. BNP normal. Continue IV remdesivir and dexamethasone. #2. Known mediastinal lymphadenopathy: Following with pulmonary medicine, last visit noted 04/23/2023, patient on continued CT surveillance with next imaging 08/27/2023. #3. History of hypertension: Noted history reportedly resolved with weight loss #4. Chart reported Hyperlipidemia: Per current list not on a statin therapy, encouraged outpatient continued evaluation and follow-up. #5. Chart reported diabetes mellitus type II: Reportedly resolved with weight loss however clarifying to be sure she is not on any medications, glucose currently 79, will obtain hemoglobin A1c given patient planned usage of steroids, last noted hemoglobin A1c 10/16/2017 5.5%, at this time we will continue ADA diet but defer Accu-Cheks/sliding scale unless blood sugars significantly elevated or A1c consistent with prediabetes/diabetes. #6. Anxiety and depression: We will continue patient low-dose hydroxyzine as needed but clarifying if patient is on any chronic regimen, pending reevaluation by primary care may necessitate alternate therapy for better control. #7. Allergic rhinitis: We will continue patient home fluticasone, loratadine home regimen. #8. GERD: We will continue patient on famotidine regimen. #9. Tobacco Abuse: Encouraged cessation, inpatient consultation per RT, NR if desired. #10. DVT prophylaxis: Lovenox. #11. CODE status: Patient HCPOA and living will are not in place but if she needed to medical decision-maker she would want to be her daughter Julita. Discussed CODE status at length including difference between FULL code, DNR-CCA and DNR-CC status. Following discussions about the differences in these status, requested Full Code status. Charges/Coding Visit Charges Inpatient E&M: 32388 Subs Hosp L2
[2023-07-09 09:07] LABS: Hemoglobin A1c 5.3 % (3.8-5.6)
[2023-07-09] MEDS: Remdesivir 100 MG in 0.9% Normal Saline (250mL Bag) 230 ML 250 MG IV (10:20)
[2023-07-09] MEDS: Enoxaparin 30 MG/0.3 ML Syringe SC ×2 (10:21→20:18)
[2023-07-09] MEDS: Metoprolol(XL)Succ 25 MG Tablet PO (10:21)
[2023-07-09] MEDS: 0.9% Saline Lock 10 ML Syringe IV (10:21)
[2023-07-09] MEDS: Famotidine 20 MG Tablet PO ×2 (10:21→20:19)
[2023-07-09] MEDS: guaiFENesin/D-Methorphan TAB.SR.12H 2 TABLET PO ×2 (10:22→20:19)
[2023-07-09] MEDS: Fluticasone 0.05% 1 SPRAY NASAL.SRY NASAL ×2 (10:23→20:17)
[2023-07-09] MEDS: dexAMETHasone 4 MG/ML Vial 6 MG IV (10:23)
--- NOTE | 2023-07-09 10:42 | CASEMGMT ---
MARIN PADILLA Assessment Face to Face with patient for initial transition planning/care coordination assessment. MARIN PADILLA introduced self and role at [facility], pt voices understanding. Pt is A&Ox4 and is resting comfortably in bed and is calm. Care providers, pharmacy, and demographics verified. Admitting dx: COVID, COPD Exacerbation LACE Strata: 1 [facility] Specialists: Rebecca Armstrong ([facility]). Brayden (Pulmonary). Pt states she sees a web content & social media manager through [facility] but could not recall name. Preferred Pharmacy: [facility] Insurance: [facility] Dual COMP Prescription Benefit:Yes LNOK: - Jorge Gloria. Daughter - Ngyuen Quintana Living Arrangements: Pt states that she lives with her and GS in a one story home with a basement with handrails. Pt states there is 1 small step to enter the home. Pt states that she gets weak and SOB and does not use the stairs at this time. ADLs/IADLs: States ind with ADLs and mainly ind with IADLs and has the help of her . Transportation: Pt does not drive, drives. DME: Pt states she has a walker at home but does not use. States she uses a shower chair and grab bar. Pt states that she has an an active order for home O2 through [employer]. This MARIN PADILLA calls them and they state pt order (as of 2021) states 2L with exertion. Pt states she has portable tanks and a concentrator at home. HHC/SNF: Denies Plan: Pt goal and plan is to DC home with her and GS once medically cleared. Pt states she recently started outpt PT through [facility]. Pt wishes to resume this after DC. Elisabeth Manning RN, CM
[2023-07-10] VITALS (9 sets, daily range): BP systolic 134–138; BP diastolic 51–56; PULSE 60–78; RESP 16–23; TEMP 36.8–37.2; O2SAT 93–96; BMI 19.3
[2023-07-10] MEDS: HYDROcodone Bitartrate/Apap 5/325 Tablet PO ×3 (03:54→20:44)
[2023-07-10] MEDS: Ipratropium/Albuterol Sulfate 3 ML AMPUL.NEB INHALATION ×4 (06:55→19:25)
[2023-07-10] MEDS: Fluticasone 0.05% 1 SPRAY NASAL.SRY NASAL ×2 (09:04→20:44)
[2023-07-10] MEDS: Enoxaparin 30 MG/0.3 ML Syringe SC ×2 (09:04→20:44)
[2023-07-10] MEDS: Metoprolol(XL)Succ 25 MG Tablet PO (09:05)
[2023-07-10] MEDS: Famotidine 20 MG Tablet PO ×2 (09:05→20:44)
[2023-07-10] MEDS: guaiFENesin/D-Methorphan TAB.SR.12H 2 TABLET PO ×2 (09:05→20:44)
[2023-07-10] MEDS: dexAMETHasone 4 MG/ML Vial 6 MG IV (09:05)
[2023-07-10] MEDS: 0.9% Saline Lock 10 ML Syringe IV (09:06)
[2023-07-10] MEDS: Remdesivir 100 MG in 0.9% Normal Saline (250mL Bag) 230 ML 250 MG IV (09:34)
--- NOTE | 2023-07-10 15:28 | PN.HOSP_ITS ---
Reason for Visit Reason for Visit: Diagnoses Chronic obstructive pulmonary disease with (acute) exacerbation (07/08/23) COVID-19 (07/08/23) Objective Data Objective Data Vital Signs: Vital Signs Temp Pulse Resp BP Pulse Ox O2 Del Method O2 Flow Rate 99.0 F 70 20 H 135/52 H 96 Nasal Cannula 2 07/10/23 08:54 07/10/23 15:10 07/10/23 14:33 07/10/23 08:54 07/10/23 08:54 07/10/23 15:10 07/10/23 08:54 Oxygen Flow Rate (L/min) 2 Oxygen Delivery Method Nasal Cannula Weight: 102 lb 8.239 oz Body Mass Index (BMI) 19.3 Intake & Output: Intake and Output for Last 24 Hours 07/08/23 07/09/23 07/10/23 23:59 23:59 23:59 Intake Total 200 / 200 880.50 / 880.50 1150 / 1150 Balance 200 / 200 880.50 / 880.50 1150 / 1150 Lab / Micro Data 07/09/23 05:00 07/09/23 05:00 Micro: Microbiology 07/08/23 14:21 Mucosa - Nasopharyngeal SARS-CoV-2, Influenza & RSV (PCR) - Final SARS-CoV-2 (COVID 19 PCR) Physical Exam Narrative Seen and examined. Patient is still short of breath. Mild dyspnea on exertion but feels better than yesterday. Patient is stated she is sick for about 2 to 3 days. She has cough and whitish sputum, generalized bodyaches and more short of breath. Usually she wears 2 L of oxygen at bedtime but she is wearing throughout the day. Physical exam: General: Alert, Oriented x3, Cooperative HEENT: Atraumatic, PERRLA, EOMI, Normocephalic Oral: No Gingival or Mucosal Lesions/ Ulcerations Neck: Supple, No JVD, Negative Carotid Bruits Lungs: Air entry diminished in bilateral lungs. Bilateral coarse crepitations/wheezing. Mild dyspnea on exertion. Cardiovascular: Regular rate, Regular Rhythm, Normal S1, Normal S2, No murmurs Abdomen: Bowel Sounds Present, Soft, Non Tender, Non-Distended : No renal angle tenderness. No suprapubic tenderness. Extremities: No edema, Capillary Refill Less than 3 Seconds Skin: No rashes, No breakdown Musculoskeletal: No Tenderness to Palpation of Joints or Extremities Neurological: Cranial nerves II-XII grossly intact, DTR 2+/4. No acute focal neurological deficit. Psych/Mental Status: Flat affect. Assessment & Plan Assessment/Plan (1) COVID-19: (2) COPD exacerbation: PLAN: Plan The patient is a 67 y/o F admitted on MedSurg floor shortness of breath for last couple days chills, body aches. She has been wearing her home oxygen 2 L throughout the day which she normally wears at night. Pulse ox was 87 to 88% at home. Denies chest pain. #1. Acute COPD exacerbation w/ Acute Hypoxic on Chronic Hypoxic Respiratory Failure (2L NC q HS only) due to COVID-19 viral bronchitis: Patient is being on MedSurg floor. She was hypoxic 87 to 88% on 2 L of home oxygen. Mild leukopenia. CRP elevated but D-dimer CK, troponin, LDH and ferritin are normal. Procalcitonin normal. BNP normal. Continue IV remdesivir and dexamethasone. 07/10: Patient is gradually getting better. On 2 to 3 L of oxygen but he still has dyspnea on mild exertion. Patient is able to bring up phlegm, bronchopulmonary hygiene encouraged. Possible anticipate discharge tomorrow. Patient has home oxygen, discussed with the outpatient case manager. #2. Known mediastinal lymphadenopathy: Following with pulmonary medicine, last visit noted 04/23/2023, patient on continued CT surveillance with next imaging 08/27/2023. #3. History of hypertension: Noted history reportedly resolved with weight loss #4. Chart reported Hyperlipidemia: Per current list not on a statin therapy, encouraged outpatient continued evaluation and follow-up. #5. Chart reported diabetes mellitus type II: Reportedly resolved with weight loss however clarifying to be sure she is not on any medications, glucose currently 79, will obtain hemoglobin A1c given patient planned usage of steroids, last noted hemoglobin A1c 10/16/2017 5.5%, at this time we will continue ADA diet but defer Accu-Cheks/sliding scale unless blood sugars significantly elevated or A1c consistent with prediabetes/diabetes. #6. Anxiety and depression: We will continue patient low-dose hydroxyzine as needed but clarifying if patient is on any chronic regimen, pending reevaluation by primary care may necessitate alternate therapy for better control. #7. Allergic rhinitis: We will continue patient home fluticasone, loratadine home regimen. #8. GERD: We will continue patient on famotidine regimen. #9. Tobacco Abuse: Encouraged cessation, inpatient consultation per RT, NR if desired. #10. DVT prophylaxis: Lovenox. #11. CODE status: Patient HCPOA and living will are not in place but if she needed to medical decision-maker she would want to be her daughter Julita. Discussed CODE status at length including difference between FULL code, DNR-CCA and DNR-CC status. Following discussions about the differences in these status, requested Full Code status. Charges/Coding Visit Charges Inpatient E&M: 52413 Subs Hosp L2
[2023-07-11] VITALS (8 sets, daily range): BP systolic 120–138; BP diastolic 45–63; PULSE 64–80; RESP 18–22; TEMP 36.7–36.8; O2SAT 88–95; BMI 18.8
[2023-07-11] MEDS: HYDROcodone Bitartrate/Apap 5/325 Tablet PO (05:57)
[2023-07-11] MEDS: 0.9% Saline Lock 10 ML Syringe IV ×2 (08:15→10:07)
[2023-07-11] MEDS: guaiFENesin/D-Methorphan TAB.SR.12H 2 TABLET PO (08:16)
[2023-07-11] MEDS: dexAMETHasone 4 MG/ML Vial 6 MG IV (08:16)
[2023-07-11] MEDS: Fluticasone 0.05% 1 SPRAY NASAL.SRY NASAL (08:17)
[2023-07-11] MEDS: Remdesivir 100 MG in 0.9% Normal Saline (250mL Bag) 230 ML 250 MG IV (08:17)
[2023-07-11] MEDS: Ipratropium/Albuterol Sulfate 3 ML AMPUL.NEB INHALATION ×2 (08:22→11:00)
[2023-07-11] MEDS: Metoprolol(XL)Succ 25 MG Tablet PO (08:23)
[2023-07-11] MEDS: Famotidine 20 MG Tablet PO (10:07)
[2023-07-11] MEDS: Enoxaparin 30 MG/0.3 ML Syringe SC (10:07)
--- NOTE | 2023-07-11 10:10 | NURSING ---
placed on room air.
--- NOTE | 2023-07-11 10:17 | DCINST_ITS ---
Discharge Instructions Diet Discharge Diet: No restrictions Activity Discharge Activity: Return to Normal Activity Weight Bearing Status: Weight bearing as tolerated Dressing / Incision Call your doctor if you observe: Fever of 101 or Higher, Coldness, Increased Pain, Numbness or Tingling, Change in Color, Inability to urinate, Inability to have a bowel movement, Using more than 1 pad per hour, Shortness of breath, Dizziness, Fainting spells, Swelling in the ankles, Chest pain, Prolonged hiccupping, Increased palpitations (irregular heartbeat) and Calf discomfort Follow Up Care When: IN 2 WEEKS Test Results: Test results from this visit will be discussed in further detail at your follow- up appointment, if applicable. Discharge Plan Admission Admit Date/Time: 07/08/23 17:15 Primary Reason for Your Visit: covid , copd exa Attending Provider: Glenroy Brooks Primary Care Provider: Krish Martinez Consulting Providers: Holly Moses Discharge Orders/Prescriptions Prescriptions: New nicotine 21 mg/24 hr Patch 24 Hour 21 mg transdermal DAILY 28 Days Qty: 28 0RF Mucinex DM 30-600 mg Tablet Extended Release 12 Hr 2 tab PO BID 7 Days Qty: 28 0RF dexamethasone 6 mg tablet 6 mg PO DAILY 6 Days Qty: 6 0RF Continued metoprolol succinate 25 mg tablet extended release 24 hr 25 mg PO DAILY famotidine 20 mg tablet 20 mg PO BID Patient Comments: take 1 tablet by mouth twice a day tizanidine 4 mg capsule 4 mg PO BID PRN (Reason: MUSCLE SPASMS) albuterol sulfate [Ventolin HFA] 90 mcg/actuation HFA aerosol inhaler 2 puff INHALATION Q4H PRN (Reason: shortness of breath or wheezing) Qty: 8.5 6RF albuterol sulfate 2.5 mg /3 mL (0.083 %) solution for nebulization 2.5 mg INHALATION Q2H PRN PRN (Reason: Dyspnea, wheezing) Qty: 180 6RF loratadine 10 mg capsule 10 mg PO DAILY PRN (Reason: Allergies) Qty: 90 3RF fluticasone propionate [Flonase Allergy Relief] 50 mcg/actuation spray,suspension 1 spray INTRANASAL BID Qty: 15.8 6RF Rx Instructions: administer into each nostril Combivent Respimat 20-100 mcg/actuation mist 1 puff inhalation Q6H Qty: 4 11RF polyethylene glycol 3350 17 GM packet 17 gm PO DAILY PRN (Reason: Constipation) hydrocodone-acetaminophen 1 EACH tablet 1 ea PO PRN PRN (Reason: Pain) Patient Comments: 5 TIMES DAILY PRN FOR BACK PAIN hydroxyzine HCl 25 MG tablet 25 mg PO BID PRN PRN (Reason: Anxiety) cholecalciferol (vitamin D3) 2,000 UNIT tablet 2,000 unit PO DAILY alendronate 70 mg tablet 70 mg PO .qtuesday Patient Comments: take 1 tablet by mouth every week ON AN EMPTY STOMACH WITH 6-8 OZ... (REFER TO PRESCRIPTION NOTES). Dulera 200-5 mcg/actuation HFA aerosol inhaler 2 puff inhalation BID Qty: 13 11RF Referrals / Follow Up: Krish Martinze MD [Primary Care Provider] - Wesly Owen DO [Med Staff - Active Staff] - Within 2 Weeks (COPD exacerbation from COVID-19) Disposition Disposition (needs filled in before D/C Order can be placed): Home, Self Care
--- NOTE | 2023-07-11 10:21 | DS.PCM_ITS ---
Providers Date of Admission: 07/08/23 Date of Discharge: 07/11/23 Primary Care Physician: Dr. Krish Martinez MD Reason For Visit: COVID, COPD EXACERBATION Diagnosis Discharge Diagnosis (1) COVID-19: Status: Acute Code(s): U07.1 - COVID-19 (2) COPD exacerbation: Status: Chronic Code(s): J44.1 - Chronic obstructive pulmonary disease with (acute) exacerbation Plan The patient is a 67 y/o F admitted on MedSurg floor shortness of breath for last couple days chills, body aches. She has been wearing her home oxygen 2 L throughout the day which she normally wears at night. Pulse ox was 87 to 88% at home. Denies chest pain. #1. Acute COPD exacerbation w/ Acute Hypoxic on Chronic Hypoxic Respiratory Failure (2L NC q HS only) due to COVID-19 viral bronchitis: Patient is being on MedSurg floor. She was hypoxic 87 to 88% on 2 L of home oxygen. Mild leukopenia. CRP elevated but D-dimer CK, troponin, LDH and ferritin are normal. Procalcitonin normal. BNP normal. Continue IV remdesivir and dexamethasone. 07/10: Patient is gradually getting better. On 2 to 3 L of oxygen but he still has dyspnea on mild exertion. Patient is able to bring up phlegm, bronchopulmonary hygiene encouraged. Possible anticipate discharge tomorrow. Patient has home oxygen, discussed with the manager case management. 07/11: Patient cough congestion is better. On 2 L of oxygen, Home anticoagulant. Patient is discharged on dexamethasone 6 mg daily for 6 more days, Mucinex DM. Advised to continue incentive spirometry and PEP for 1 more week. Follow-up in pulmonary clinic with Dr. Owen in about 2 weeks. Continue home oxygen to keep pulse ox 90%. #2. Known mediastinal lymphadenopathy: Following with pulmonary medicine, last visit noted 04/23/2023, patient on continued CT surveillance with next imaging 08/27/2023. #3. History of hypertension: Noted history reportedly resolved with weight loss #4. Chart reported Hyperlipidemia: Per current list not on a statin therapy, encouraged outpatient continued evaluation and follow-up. #5. Chart reported diabetes mellitus type II: Reportedly resolved with weight loss however clarifying to be sure she is not on any medications, glucose currently 79, will obtain hemoglobin A1c given patient planned usage of steroids, last noted hemoglobin A1c 10/16/2017 5.5%, at this time we will continue ADA diet but defer Accu-Cheks/sliding scale unless blood sugars significantly elevated or A1c consistent with prediabetes/diabetes. #6. Anxiety and depression: We will continue patient low-dose hydroxyzine as needed but clarifying if patient is on any chronic regimen, pending reevaluation by primary care may necessitate alternate therapy for better control. #7. Allergic rhinitis: We will continue patient home fluticasone, loratadine home regimen. #8. GERD: We will continue patient on famotidine regimen. #9. Tobacco Abuse: Encouraged cessation, inpatient consultation per RT, NR if desired. #10. DVT prophylaxis: Lovenox. #11. CODE status: Patient HCPOA and living will are not in place but if she needed to medical decision-maker she would want to be her daughter Julita. Discussed CODE status at length including difference between FULL code, DNR-CCA and DNR-CC status. Following discussions about the differences in these status, requested Full Code status. Discharge medication reconciliation done. Discharge follow-up instructions completed. Discharge process discussed with the patient and all questions were answered to patient's satisfaction. Follow with PCP in 1 to 2 weeks Total time spent, exact 35 minutes on discharge meds reconciliation, examina tion, coordination of care with nurses and ancillary staff, review of imaging and blood test and discussion with the patient on follow-up instructions. Medications at Discharge Home Medications hydrocodone-acetaminophen 5-325mg 5mg-325mg 1 ea PO PRN PRN Pain 09/30/17 polyethylene glycol 3350 17 gram oral powder packet 17 gm PO DAILY PRN Constipation 09/30/17 cholecalciferol (vitamin D3) 50 mcg (2,000 unit) tablet 2,000 unit PO DAILY supplement 11/18/18 hydroxyzine HCl 25 mg tablet 25 mg PO BID PRN PRN Anxiety 11/18/18 famotidine 20 mg tablet 20 mg PO BID indigestion 12/04/21 tizanidine 4 mg capsule 4 mg PO BID PRN MUSCLE SPASMS 12/04/21 metoprolol succinate 25 mg tablet,extended release 24 hr 25 mg PO DAILY heart rate 02/05/22 albuterol sulfate 2.5 mg/3 mL (0.083 %) solution for nebulization 2.5 mg (3 mL) inhalation Q2H PRN PRN Dyspnea, wheezing #180 vials 06/18/22 albuterol sulfate 90 mcg/actuation aerosol inhaler (Ventolin HFA) 2 puff inhalation Q4H PRN shortness of breath or wheezing #8.5 grams 06/18/22 loratadine 10 mg capsule 10 mg PO DAILY PRN Allergies #90 caps 06/18/22 fluticasone propionate 50 mcg/actuation nasal spray,suspension (Flonase Allergy Relief) 1 spray intranasal BID allergy #15.8 mL 04/23/23 ipratropium 20 mcg-albuterol 100 mcg/actuation mist for inhalation (Combivent Respimat) 1 puff inhalation Q6H see dx #4 grams 04/23/23 mometasone-formoterol HFA 200 mcg-5 mcg/actuation aerosol inhaler (Dulera) 2 puff inhalation BID copd #13 grams 06/14/23 alendronate 70 mg tablet 70 mg PO .qtuesday osteo 07/08/23 dexamethasone 6 mg tablet 6 mg PO DAILY 6 days #6 tabs 07/11/23 dextromethorphan-guaifenesin 30 mg-600 mg tablet extended [id number] hr (Mucinex DM) 2 tab PO BID 7 days #28 tabs 07/11/23 nicotine 21 mg/24 hr daily transdermal patch 21 mg transdermal DAILY Nicotine Craving 28 days #28 ea 07/11/23 Physical Exam Narrative Seen and examined. Shortness of breath is improved. Lung congestion has also improved along with cough and wheezing. Usually she wears 2 L of oxygen at bedtime but she is wearing throughout the day. Physical exam: General: Alert, Oriented x3, Cooperative HEENT: Atraumatic, PERRLA, EOMI, Normocephalic Oral: No Gingival or Mucosal Lesions/ Ulcerations Neck: Supple, No JVD, Negative Carotid Bruits Lungs: Air entry diminished in bilateral lungs. Mild bilateral rhonchi. Cardiovascular: Regular rate, Regular Rhythm, Normal S1, Normal S2, No murmurs Abdomen: Bowel Sounds Present, Soft, Non Tender, Non-Distended : No renal angle tenderness. No suprapubic tenderness. Extremities: No edema, Capillary Refill Less than 3 Seconds Skin: No rashes, No breakdown Musculoskeletal: No Tenderness to Palpation of Joints or Extremities Neurological: Cranial nerves II-XII grossly intact, DTR 2+/4. No acute focal neurological deficit. Psych/Mental Status: Flat affect. Weight / BMI Weight Weight: 99 lb 6.856 oz Body Mass Index (BMI) 18.8 ABG / Lab / Microbiology Data 07/09/23 05:00 07/09/23 05:00 Microbiology: Microbiology 07/08/23 14:21 Mucosa - Nasopharyngeal SARS-CoV-2, Influenza & RSV (PCR) - Final SARS-CoV-2 (COVID 19 PCR) D/C Instructions Discharge Diet: No restrictions Weight Bearing Status: Weight bearing as tolerated Call your doctor if you observe: Fever of 101 or Higher, Coldness, Increased Pain, Numbness or Tingling, Change in Color, Inability to urinate, Inability to have a bowel movement, Using more than 1 pad per hour, Shortness of breath, Dizziness, Fainting spells, Swelling in the ankles, Chest pain, Prolonged hiccupping, Increased palpitations (irregular heartbeat) and Calf discomfort When: IN 2 WEEKS Meaningful Use Info Meaningful Use Diagnoses (Choose all that apply): None applicable Discharge Plan Admission Admit Date/Time: 07/08/23 17:15 Primary Reason for Your Visit: covid , copd exa Attending Provider: Glenroy Brooks Primary Care Provider: Krish Maritnez Consulting Providers: Holly Moses Discharge Orders/Prescriptions Prescriptions: New nicotine 21 mg/24 hr Patch 24 Hour 21 mg transdermal DAILY 28 Days Qty: 28 0RF Mucinex DM 30-600 mg Tablet Extended Release 12 Hr 2 tab PO BID 7 Days Qty: 28 0RF dexamethasone 6 mg tablet 6 mg PO DAILY 6 Days Qty: 6 0RF Continued metoprolol succinate 25 mg tablet extended release 24 hr 25 mg PO DAILY famotidine 20 mg tablet 20 mg PO BID Patient Comments: take 1 tablet by mouth twice a day tizanidine 4 mg capsule 4 mg PO BID PRN (Reason: MUSCLE SPASMS) albuterol sulfate [Ventolin HFA] 90 mcg/actuation HFA aerosol inhaler 2 puff INHALATION Q4H PRN (Reason: shortness of breath or wheezing) Qty: 8.5 6RF albuterol sulfate 2.5 mg /3 mL (0.083 %) solution for nebulization 2.5 mg INHALATION Q2H PRN PRN (Reason: Dyspnea, wheezing) Qty: 180 6RF loratadine 10 mg capsule 10 mg PO DAILY PRN (Reason: Allergies) Qty: 90 3RF fluticasone propionate [Flonase Allergy Relief] 50 mcg/actuation spray,suspension 1 spray INTRANASAL BID Qty: 15.8 6RF Rx Instructions: administer into each nostril Combivent Respimat 20-100 mcg/actuation mist 1 puff inhalation Q6H Qty: 4 11RF polyethylene glycol 3350 17 GM packet 17 gm PO DAILY PRN (Reason: Constipation) hydrocodone-acetaminophen 1 EACH tablet 1 ea PO PRN PRN (Reason: Pain) Patient Comments: 5 TIMES DAILY PRN FOR BACK PAIN hydroxyzine HCl 25 MG tablet 25 mg PO BID PRN PRN (Reason: Anxiety) cholecalciferol (vitamin D3) 2,000 UNIT tablet 2,000 unit PO DAILY alendronate 70 mg tablet 70 mg PO .qtuesday Patient Comments: take 1 tablet by mouth every week ON AN EMPTY STOMACH WITH 6-8 OZ... (REFER TO PRESCRIPTION NOTES). Dulera 200-5 mcg/actuation HFA aerosol inhaler 2 puff inhalation BID Qty: 13 11RF Referrals / Follow Up: Wesly Owen DO [Med Staff - Active Staff] - Within 2 Weeks (COPD exacerbation from COVID-19) Krish Martinez MD [Primary Care Provider] - Disposition Disposition (needs filled in before D/C Order can be placed): Home, Self Care Charges/Coding Visit Charges Inpatient E&M: 95009 Disch Hosp >30min
[2023-07-13 09:20] LABS: Pathologist Review Reviewed
== END 2023-07-11 13:58 | disposition home or self-care (01) | DRG 177 ==
LOC: ED 17:11 → MS3 17:27
PROVIDERS: Admitting Provider Family Medicine; Emergency Provider Student in an Organized Health Care Education/Training Program; PCP Family Medicine; Visit Provider Internal Medicine
DX: U07.1 COVID-19 (principal); J96.21 Acute and chronic respiratory failure with hypoxia; J44.1 Chronic obstructive pulmonary disease with (acute) exacerbation; J44.0 Chronic obstructive pulmonary disease with (acute) lower respiratory infection; I10 Essential (primary) hypertension; F32.A Depression, unspecified; E78.5 Hyperlipidemia, unspecified; K21.9 Gastro-esophageal reflux disease without esophagitis; F17.210 Nicotine dependence, cigarettes, uncomplicated; J20.8 Acute bronchitis due to other specified organisms; F41.9 Anxiety disorder, unspecified; J30.9 Allergic rhinitis, unspecified; R59.0 Localized enlarged lymph nodes; Z79.52 Long term (current) use of systemic steroids; Z79.899 Other long term (current) drug therapy
CPT/HCPCS: 36415; 71045; 80048; 80053; 82550; 82728; 83036; 83615; 83880; 84145; 84484; 85025; 85379; 85652; 86140; 87631; 94640; 94668; 97802; 99252; 99283; J7050; A4216; G0463; J0248; J2405

== ENCOUNTER → 2023-09-09 | Outpatient (CLI) | payer MEDICARE, SELFPAY ==
--- NOTE | 2023-09-09 12:46 | CT_ITS ---
EXAM: CT CHEST WITH INTRAVENOUS CONTRAST CLINICAL INDICATION: high risk for cancer TECHNIQUE: Helically acquired images were obtained of the chest with intravenous contrast. This CT exam was performed using one or more of the following dose reduction techniques: automated exposure control, adjustment of the mA and/or kV according to patient size, and/or use of iterative reconstruction technique. CONTRAST: IV 75mL Isovue-300 RADIATION DOSE: CTDIvol = 5.35 mGy, DLP = 147.03 mGy-cm COMPARISON: March 09, 2023, mentioned stable exam with multiple nodules in both lungs, more prominent on the left. Patient had a PET/CT June 10, [address] chest September 09, 2022. September 06, 2020 FINDINGS: LUNGS AND PLEURAL SPACES: Right upper lobe thickened linear juxtapleural focus was previously a thick-walled irregular cavitary focus September 06, 2020 but a thick band of curvilinear opacity extending to the pleura on March 09, 2023 with a broad base, this measures roughly 1.6 cm AP by 1.8 cm at its juxtapleural component, very similar to March 09, 2023. There is severe emphysematous lung change. Right middle lobe increased density with air bronchograms: Similar to March 09, 2023 and September 06, 2020. Mildly thickened interstitial markings in the right lung base: Similar to March 09, 2023. Mildly thickened micronodular appearance of left basilar interstitial and subpleural structures: Mildly increased from March 09, 2023. Left upper lateral pulmonary nodule of 7.4 mm x 7.1 mm: similar size and configuration compared to March 09, 2023 and September 06, 2020 on axial images. The craniocaudal extent is smaller on sagittal images, now 1.1 cm, it was 1.3 cm on September 06, 2020. Nodule with some central punctate calcifications in the superior segment of the left lower lobe with radiating spiculation extending to the left major fissure: New from September 06, 2020, stable from March 09, 2023. The nodular portion measures 1.2 cm x 1 cm on axial images, it was 1.4 cm x 1.1 cm. Mild airway thickening. No new nodule or mass. No central airway obstruction. HEART: See below. MEDIASTINUM: Calcified left subcarinal and perihilar lymph nodes are stable. Stable appearance of noncalcified precarinal lymph node of roughly 1 cm x 1.4 cm best seen on axial images, it was 1.2 cm x 1.7 cm. Esophagus is unremarkable. THYROID: Unremarkable. No thyroid lesions. BONES/JOINTS: Mildly accentuated kyphosis mildly advanced demineralization, no acute spine abnormality. No suspicious lytic or blastic abnormality. VASCULATURE: No aortic aneurysm or dissection. Descending thoracic aorta is 2.4 cm x 2.3 cm. Moderate calcifications of proximal left anterior descending and circumflex arteries. No intracardiac filling defects. No obvious central pulmonary embolism although this study was not performed with the pulmonary embolism protocol. No evidence of PE. LYMPH NODES: Small lymph nodes in the gastrohepatic region and adjacent to the descending thoracic aorta near the aortic hiatus appears similar. SPLEEN: Calcified splenic granulomas, partially included liver with at least one calcified granuloma, adrenals, kidneys appear stable. There is exophytic slightly dense 9 mm structure at the posterior upper left kidney, there was no hyperdense presumed 1 cm cyst at this location on prior unenhanced and enhanced exam March 09, 2023. CT/Chest WITH Contrast IMPRESSION: 1. There is some increased interstitial thickening and micronodular changes in the lung bases and increased airway thickening in the lung bases. Suspected tree-in-bud type pattern suggesting active infection such as granulomatous disease, atypical mycobacterial infection, fungal infection or other. 2. The multiple additional nodular and indeterminate lung findings superimposed on severe COPD appear largely stable from prior exams. With the exception of a dominant nodule in the superior segment of the left lower lobe with some central punctate calcifications which is stable from the most recent prior 6 months ago. 3. Recommendation for solid pulmonary nodule over 8 mm, high risk patient, stable for 3-17 months from interpretation of Fleischner guidelines: For high-risk patients consider a follow-up chest CT at 12-18 months. If unchanged, no further follow-up. Electronically Signed: Layne Galvez MD at 8:16 EDT ,
[2023-09-09 13:17] LABS: CREATININE FINGERSTICK < 1.0 mg/dL (0.55-1.02); EGFR FINGERSTICK > 60.0000 mL/min (>60)
== END | disposition home or self-care (01) ==
LOC: CT 12:46
PROVIDERS: PCP Family Medicine; Referring Provider Nurse Practitioner Acute Care; Visit Provider Nurse Practitioner Acute Care
DX: R59.0 Localized enlarged lymph nodes (principal)
CPT/HCPCS: 71260; Q9967

== ENCOUNTER 2023-09-14 18:20 | Inpatient (IN) | payer MEDICARE, SELFPAY ==
[2023-09-14] VITALS (10 sets, daily range): BP systolic 134–154; BP diastolic 61–74; PULSE 86–110; RESP 18–26; TEMP 36.3–37; O2SAT 96–99; BMI 17.4; BMI 16.1
--- NOTE | 2023-09-14 19:27 | EKG12_ITS ---
Test Reason : WEAKNESS Blood Pressure : / mmHG Vent. Rate : 099 BPM Atrial Rate : 099 BPM P-R Int : 144 ms QRS Dur : 088 ms QT Int : 340 ms P-R-T Axes : 047 -03 044 degrees QTc Int : 436 ms Normal sinus rhythm Normal Confirmed by Donnie Rajan ([id number]), video effects editor ILEANA KC ([id number]) on 09/16/2023 11:04:28 AM Referred By: Confirmed By:Donnie Rajan
--- NOTE | 2023-09-14 19:29 | EDS_ITS ---
HPI History of Present Illness Chief Complaint: General Illness Informant: patient Narrative Narrative: Patient presents stating that she just does not feel well. Symptoms been ongoing for the past several days and she reports increased weakness. She states she had has the energy to walk across the room. She does have a history of COPD and wears oxygen at home. She does report increased shortness of breath and cough. No fever has been noted. She reports decreased p.o. intake stating she just does not seem to care if she eats or not. [facility] Medical History Anxiety and depression Asthma Chronic hypoxemic respiratory failure COPD (chronic obstructive pulmonary disease) COVID-19 Emphysema lung GERD (gastroesophageal reflux disease) History of diabetes mellitus History of essential hypertension Insomnia Irregular heart beat Kidney stones Mediastinal lymphadenopathy On home oxygen therapy Osteoporosis Smoker Tobacco dependence due to cigarettes Home Medications hydrocodone-acetaminophen 5-325mg 5mg-325mg 1 ea PO PRN PRN Pain 09/30/17 [History Last Taken 07/08/23] cholecalciferol (vitamin D3) 50 mcg (2,000 unit) tablet 2,000 unit PO DAILY supplement 11/18/18 [History Last Taken 07/08/23] famotidine 20 mg tablet 20 mg PO BID indigestion 12/04/21 [History Last Taken 07/08/23] tizanidine 4 mg capsule 4 mg PO BID PRN MUSCLE SPASMS 12/04/21 [History Last Taken 02/15/22 22:00] metoprolol succinate 25 mg tablet,extended release 24 hr 25 mg PO DAILY heart rate 02/05/22 [History Last Taken 07/08/23] loratadine 10 mg capsule 10 mg PO DAILY PRN Allergies #90 caps 06/18/22 [Rx Last Taken 07/08/23] fluticasone propionate 50 mcg/actuation nasal spray,suspension (Flonase Allergy Relief) 1 spray intranasal BID allergy #15.8 mL 04/23/23 [Rx Last Taken 07/08/23] ipratropium 20 mcg-albuterol 100 mcg/actuation mist for inhalation (Combivent Respimat) 1 puff inhalation Q6H see dx #4 grams 04/23/23 [Rx Last Taken Unknown] mometasone-formoterol HFA 200 mcg-5 mcg/actuation aerosol inhaler (Dulera) 2 puff inhalation BID copd #13 grams 06/14/23 [Rx Last Taken 07/08/23] alendronate 70 mg tablet 70 mg PO .qtuesday osteo 07/08/23 [History Last Taken 07/06/23] albuterol sulfate 90 mcg/actuation aerosol inhaler (Ventolin HFA) 2 puff inhalation Q4H PRN shortness of breath or wheezing #8.5 grams 07/12/23 [Rx Last Taken Unknown] ipratropium 0.5 mg-albuterol 3 mg (2.5 mg base)/3 mL nebulization soln 3 ml inhalation Q4H PRN PRN SOB &/OR WHEEZING #180 mL 08/06/23 [Rx Last Taken Unknown] albuterol sulfate 2.5 mg/3 mL (0.083 %) solution for nebulization 2.5 mg (3 mL) inhalation Q2H PRN PRN Dyspnea, wheezing #180 vials 09/08/23 [Rx Last Taken Unknown] diazepam 2 mg tablet 2 mg PO Q6H PRN PRN anxiety 09/14/23 [History Last Taken Unknown] docusate sodium 100 mg capsule (Colace) 100 mg PO DAILY 09/14/23 [History Last Taken Unknown] Allergy/AdvReac Type Severity Reaction Status Date / Time budesonide AdvReac Severe Shortness Verified 09/14/23 18:22 [From [facility]] of breath formoterol AdvReac Severe Shortness Verified 09/14/23 18:22 [From [facility]] of breath glycopyrrolate AdvReac Severe Shortness Verified 09/14/23 18:22 [From [facility]] of breath aclidinium AdvReac Other Verified 09/14/23 18:22 [From [facility]] doxycycline AdvReac Other Verified 09/14/23 18:22 gabapentin AdvReac Other Verified 09/14/23 18:22 ipratropium AdvReac Other Verified 09/14/23 18:22 levofloxacin [From Levaquin] AdvReac Other Verified 09/14/23 18:22 methylprednisolone AdvReac Other Verified 09/14/23 18:22 sertraline [From Zoloft] AdvReac Upset Verified 09/14/23 18:22 Stomach sulfamethoxazole AdvReac Other Verified 09/14/23 18:22 [From Bactrim] trimethoprim [From Bactrim] AdvReac Other Verified 09/14/23 18:22 umeclidinium AdvReac Other Verified 09/14/23 18:22 [From [facility]ruse Ellipta] Family History Grandmother Cancer Lung Brother Diabetes Hypertension Father Hypertension Embolism Sister Hypertension Diabetes Surgical History History of bladder suspension procedure History of cholecystectomy History of tubal ligation Social History household members: spouse and family Smoking Status: Current every day smoker tobacco type: cigarettes Tobacco: How many years used: 47 second hand exposure: Yes alcohol intake: never substance use type: does not use caffeine: Yes Type: coffee what type of physical activity do you participate in: none ROS ROS ED Constitutional Constitutional ED: Denies chills or fever(s) Eyes Eyes: Denies discharge from eye(s) ENT ENT ED: Denies discharge from eye(s), rhinorrhea or sore throat Cardiovascular Cardiovascular: Denies chest pain or palpitations Respiratory/Chest Respiratory/Chest: Reports cough and dyspnea Gastrointestinal Gastrointestinal: Reports nausea; Denies abdominal pain or vomiting Genitourinary Genitourinary ED: Denies dysuria Musculoskeletal Musculoskeletal: Denies back pain or extremity pain Integumentary Denies Abrasions or rash Neurologic Neurologic: Reports weakness; Denies headache(s) Psychiatric Psychiatric: Denies anxiety or depression Allergic/Immunologic Allergic/Immunologic ED: Denies lip swelling or urticaria EXAM Physical Exam Const Vital Signs: 09/14/23 18:22 09/14/23 19:34 09/14/23 19:43 Temperature 97.4 F L 97.5 F L Temperature Source Temporal Temporal Pulse Rate 108 H 94 110 H Respiratory Rate 18 24 H 24 H Respiratory Effort Respiratory Pattern Blood Pressure 150/67 H 154/74 H Blood Pressure Mean 94 100 Pulse Ox 98 96 Oxygen Delivery Method Nasal Cannula Nasal Cannula Oxygen Flow Rate (L/min) 2 2 09/14/23 20:00 09/14/23 20:10 09/14/23 21:06 Temperature 97.5 F L Temperature Source Oral Pulse Rate 105 H 86 Respiratory Rate 22 H 20 H Respiratory Effort Short of Breath Respiratory Pattern Tachypnea Blood Pressure 150/71 H 147/69 H Blood Pressure Mean 97 95 Pulse Ox 97 97 Oxygen Delivery Method Nasal Cannula Nasal Cannula Oxygen Flow Rate (L/min) 2 2 09/14/23 21:00 Temperature 97.6 F L Temperature Source Oral Pulse Rate 104 H Respiratory Rate 23 H Respiratory Effort Respiratory Pattern Blood Pressure 147/69 H Blood Pressure Mean 95 Pulse Ox 97 Oxygen Delivery Method Nasal Cannula Oxygen Flow Rate (L/min) 2 Positive cachectic General Appearance ED: cachectic Nutritional Appearance: cachectic HEENT Reports moist mucous membranes Eyes EOMs intact bilaterally Chest Wall inspection of chest normal and palpation of chest normal Resp Resp Narrative: Coarse breath sounds bilaterally. Mild expiratory wheeze. Cardio regular rhythm Rate: tachycardic GI non-tender Palpation: soft Extremity normal to inspection Neuro oriented x3 Neuro Narrative: No focal neurologic deficit. Psych Mood & Affect: anxious Skin no rashes or lesions noted MDM MDM MDM Narrative Medical decision making narrative: Patient placed on alarm security or surveillance monitor. EKG obtained to evaluate for cardiac arrhythmia/ischemia. IV line initiated. Labwork obtained to evaluate for leukocytosis, anemia, and electrolyte derangement. Chest x-ray obtained to evaluate for acute lung pathology, cardiac size, or mediastinal abnormality. Sw ab for COVID, influenza, and RSV will be obtained. History & Record Review Discussion w/independent historian: Patient Lab Data Attestation: I reviewed the patient's lab results. Labs: Laboratory Results - last 24 hr 09/14/23 19:58 WBC 11.2 H RBC 4.38 Hgb 12.9 Hct 41.0 MCV 93.6 MCH 29.5 MCHC 31.5 L RDW Std Deviation 42.2 RDW Coeff of Stormy 12.2 Plt Count 322 MPV 8.7 Immature Gran % (Auto) 0.400 Neut % (Auto) 83.6 H Lymph % (Auto) 9.4 L Bennett % (Auto) 6.1 Eos % (Auto) 0.1 Baso % (Auto) 0.4 Absolute Neuts (auto) 9.3 H Absolute Lymphs (auto) 1.05 Nucleated RBC % 0 Sodium 131 L Potassium 4.5 Chloride 87 L Carbon Dioxide 42.0 H Anion Gap 2 L BUN 14 Creatinine 0.41 L Estim Creat Clear Calc 45.77 Est GFR (MDRD) Af Amer 198 Est GFR (MDRD) Non-Af 164 BUN/Creatinine Ratio 33.9 H Glucose 111 H Calcium 9.3 Troponin I High Sens 18 Radiography Diagnostic Testing: Clinical Impression(s) from Imaging Studies Chest X-Ray 09/14/23 20:14 IMPRESSION: Apparent new interstitial infiltrate in the left lower lobe possibly pneumonia. Other findings as above Electronically Signed: Francisco Escobedo MD at 21:06 EDT Reading Location ID and State: [facility] / [place] Tel , Service support , EKG Initial EKG: Attestation: I personally reviewed and interpreted this EKG as follows: Interpretation: Sinus Rhythm (Sinus at 99 with no acute ischemia.) Treatment and Re-Evaluation :: CBC reveals white count of 11.2 with 83% neutrophils. Chemistry studies reveal a sodium of 131 and a chloride of 87. Patient has had similar values with hyponatremia in the past. Renal function is unremarkable. Glucose is 111. Troponin is normal at 18. Swab for COVID, influenza, and RSV is negative. EKG is sinus rhythm with no evidence of ischemia. Portable chest x-ray per my interpretation reveals chronic changes with scarring. Radiology interpretation is reviewed. They feel that there may be an early new infiltrate in the left lower lobe compared to prior study. Given her underlying COPD and upper respiratory symptoms, blood cultures will be obtained and she will be treated with Rocephin and Zithromax. I will speak with hospitalist regarding admission. Discharge Plan Triage Chief Complaint: General Illness ED Provider: Francoise Dunlap Dx/Rx/DC Orders Clinical Impression: Generalized weakness, COPD exacerbation, Pneumonia Prescriptions: No Action metoprolol succinate 25 mg tablet extended release 24 hr 25 mg PO DAILY famotidine 20 mg tablet 20 mg PO BID Patient Comments: take 1 tablet by mouth twice a day tizanidine 4 mg capsule 4 mg PO BID PRN (Reason: MUSCLE SPASMS) loratadine 10 mg capsule 10 mg PO DAILY PRN (Reason: Allergies) Qty: 90 3RF fluticasone propionate [Flonase Allergy Relief] 50 mcg/actuation spray ,suspension 1 spray INTRANASAL BID Qty: 15.8 6RF Rx Instructions: administer into each nostril Combivent Respimat 20-100 mcg/actuation mist 1 puff inhalation Q6H Qty: 4 11RF ipratropium-albuterol 0.5 mg-3 mg(2.5 mg base)/3 mL solution for nebulization 3 ml inhalation Q4H PRN PRN (Reason: SOB &/OR WHEEZING) Qty: 180 6RF hydrocodone-acetaminophen 1 EACH tablet 1 ea PO PRN PRN (Reason: Pain) Patient Comments: 5 TIMES DAILY PRN FOR BACK PAIN cholecalciferol (vitamin D3) 2,000 UNIT tablet 2,000 unit PO DAILY alendronate 70 mg tablet 70 mg PO .qtuesday Patient Comments: take 1 tablet by mouth every week ON AN EMPTY STOMACH WITH 6-8 OZ... (REFER TO PRESCRIPTION NOTES). docusate sodium [Colace] 100 mg capsule 100 mg PO DAILY diazepam 2 mg tablet 2 mg PO Q6H PRN PRN (Reason: anxiety) Dulera 200-5 mcg/actuation HFA aerosol inhaler 2 puff inhalation BID Qty: 13 11RF albuterol sulfate [Ventolin HFA] 90 mcg/actuation HFA aerosol inhaler 2 puff INHALATION Q4H PRN (Reason: shortness of breath or wheezing) Qty: 8.5 6RF albuterol sulfate 2.5 mg /3 mL (0.083 %) solution for nebulization 2.5 mg INHALATION Q2H PRN PRN (Reason: Dyspnea, wheezing) Qty: 180 6RF Primary Care Provider: Krish Martinez Referrals: Krish Martinez MD [Primary Care Provider] - Disposition [facility]
[2023-09-14] MEDS: Albuterol 2.5 MG/3 ML VIAL.NEB. INHALATION ×3 (19:48)
[2023-09-14] MEDS: 0.9% Normal Saline (1000mL) 1,000 ML 100 ML IV (19:57)
[2023-09-14 20:06] LABS: Absolute Lymphocyte Count 1.05 X10^3/uL (0.83-4.51); Absolute Neutrophil Count 9.3 X10^3/uL (2.0-7.7); Basophil# 0.04 X10^3/uL; Basophil% 0.4 % (0-1); Eosinophil# 0.01 X10^3/uL; Eosinophils% 0.1 % (0-5); Hemoglobin 12.9 g/dL (12.0-15.0); Lymphocyte # 1.05 X10^3/ul (0.83-4.51); Lymphocyte % 9.4 % (19-41); Mean Corp Hgb Conc 31.5 g/dL (32-36); Mean Corpuscular Hgb 29.5 pg (27.0-32.0); Mean Corpuscular Volume 93.6 fL (81-99); Mean Platelet Vol. 8.7 fl (6.2-12.0); Monocyte# 0.68 X10^3/uL; Monocyte% 6.1 % (0-10); NRBC Flagged by Analyzer 0 % (0-5); Neutrophil # 9.34 X10^3/uL (2.7-7.7); Neutrophil % 83.6 % (47-70); Platelet Count 322 K/mm3 (150-450); RBC Distribution Width CV 12.2 % (11.6-14.6); RBC Distribution Width SD 42.2 fl (35.1-43.9); Red Blood Count 4.38 M/mm3 (4.2-5.4); White Blood Count 11.2 K/mm3 (4.4-11.0)
--- NOTE | 2023-09-14 20:14 | RAD_ITS ---
STUDY: X-RAY CHEST REASON FOR EXAM: Female, 68 years old. sob TECHNIQUE: AP portable COMPARISON: July 08, 2023 FINDINGS: Lungs are mildly hyperinflated.. Reticulonodular interstitial thickening seen in the left lower lobe left upper and right lower lobe There is no demonstrated pleural abnormality. Normal size heart. Calcified hilar and mediastinal nodes. Normal visualized pulmonary arteries. Normal visualized aortic arch and descending thoracic aorta. Dorsal spine demonstrates scoliosis and degenerative change. Normal visualized ribs, and clavicles. There are degenerative changes of the shoulders There is no demonstrated abnormality of the visualized soft tissue structures of the upper abdomen. The reticulonodular interstitial changes in left lower lobe has increased slightly since prior exam RAD/Chest 1 View (Portable) IMPRESSION: Apparent new interstitial infiltrate in the left lower lobe possibly pneumonia. Other findings as above Electronically Signed: Francisco Escobedo MD at 21:06 EDT ,
[2023-09-14 20:27] LABS: Anion Gap 2 (5-15); BUN 14 mg/dL (7-18); BUN/Creat Ratio 33.9 RATIO (10-20); Calcium,Total 9.3 mg/dL (8.5-10.1); Chloride 87 mmol/L (98-107); Creatinine, Serum 0.41 mg/dL (0.55-1.02); EST Glomerular Filtration Rate 164 mL/min (>60); Est Glom Filt Rate - Afr Amer 198 mL/min (>60); Estimated Creatinine Clearance 45.77 ml/min; Glucose 111 mg/dL (74-106); Potassium 4.5 mmol/L (3.5-5.1); Sodium Level 131 mmol/L (136-145); Troponin-I HS 18 pg/mL (3.0-54.0)
[2023-09-14 21:35] LABS: Mucous, Urine 0 SEEN /hpf (<or=2+); Squamous Epithelial Cells - UA 0 SEEN /hpf (5-10)
[2023-09-14 21:40] LABS: Color, Urine Yellow (Yellow); Glucose, Dipstick Normal (Normal); Ketone-Dipstick Negative (Negative); Leukocyte Esterase-Dipstick 100 /ul (Negative); Nitrite-Dipstick Negative (Negative); Occult Blood-Urine 50 /ul (Negative); Protein-Dipstick 15 mg/dl (Negative); Urine Bilirubin Dipstick Negative (Negative); Urine Clarity Clear (Clear); Urine Urobilinogen Normal (Normal)
--- NOTE | 2023-09-14 21:59 | PCM.HP.STD ---
HPI - General General Date of Admission: 09/14/23 Date of Service: 09/14/23 Chief Complaint: Dyspnea, cough, fatigue, malaise. HPI Narrative The patient is a 68 y/o F w/ PMHx: Anxiety and Depression/Chronic insomnia, Chronic COPD/Asthma w/ Chronic Hypoxic Respiratory Failure w/ Allergic Rhinitis, Tobacco use, HTN, HLD, GERD, Chart reported history of Diabetes mellitus type II who presents to the [facility] ED on 09/14/23 with history of generalized fatigue, malaise as well as weakness which has been worsening over the last several days reporting decreased energy to the point where it is difficult to even get across the room with increased dyspnea, occasional wheezing as well as cough with no specific fevers but poor oral intake as well prompting eventual ED evaluation. Her who is present denies any recent illness in himself or close contacts to his spouse. She does report significantly decreased appetite. Workup in the ED included T97.4, heart rate 108, BP 150/67, respiratory rate 18, 98% on 2 L nasal cannula, CBC with WBC 11.2, hemoglobin 12.9, platelet 322 with left shift, BMP with sodium 131, chloride 87, carbon oxide 42, BUN/creatinine 14/0.41, glucose 111, troponin 18, chest x-ray w/ interstitial infiltrate left lower lobe possibly pneumonia, rapid SARS COVID/influenza/RSV PCR negative. In the ED patient ministered maintenance IV fluids, IV solumedrol 80 mg x 1, 500 mg IV azithromycin, 2 gm IV Rocephin and albuterol therapy. [facility] Medical History (Updated 09/15/23 @ 04:[address] Holly Moses MD) Anxiety and depression Asthma Chronic hypoxemic respiratory failure COPD (chronic obstructive pulmonary disease) COVID-19 Emphysema lung GERD (gastroesophageal reflux disease) History of diabetes mellitus History of essential hypertension Insomnia Kidney stones Mediastinal lymphadenopathy Osteoporosis Smoker Tobacco dependence due to cigarettes Home Medications hydrocodone-acetaminophen 5-325mg 5mg-325mg 1 ea PO PRN PRN Pain 09/30/17 [History Last Taken 07/08/23] cholecalciferol (vitamin D3) 50 mcg (2,000 unit) tablet 2,000 unit PO DAILY supplement 11/18/18 [History Last Taken 07/08/23] famotidine 20 mg tablet 20 mg PO BID indigestion 12/04/21 [History Last Taken 07/08/23] tizanidine 4 mg capsule 4 mg PO BID PRN MUSCLE SPASMS 12/04/21 [History Last Taken 02/15/22 22:00] metoprolol succinate 25 mg tablet,extended release 24 hr 25 mg PO DAILY heart rate 02/05/22 [History Last Taken 07/08/23] loratadine 10 mg capsule 10 mg PO DAILY PRN Allergies #90 caps 06/18/22 [Rx Last Taken 07/08/23] fluticasone propionate 50 mcg/actuation nasal spray,suspension (Flonase Allergy Relief) 1 spray intranasal BID allergy #15.8 mL 04/23/23 [Rx Last Taken 07/08/23] ipratropium 20 mcg-albuterol 100 mcg/actuation mist for inhalation (Combivent Respimat) 1 puff inhalation Q6H see dx #4 grams 04/23/23 [Rx Last Taken Unknown] mometasone-formoterol HFA 200 mcg-5 mcg/actuation aerosol inhaler (Dulera) 2 puff inhalation BID copd #13 grams 06/14/23 [Rx Last Taken 07/08/23] alendronate 70 mg tablet 70 mg PO .qtuesday osteo 07/08/23 [History Last Taken 07/06/23] albuterol sulfate 90 mcg/actuation aerosol inhaler (Ventolin HFA) 2 puff inhalation Q4H PRN shortness of breath or wheezing #8.5 grams 07/12/23 [Rx Last Taken Unknown] ipratropium 0.5 mg-albuterol 3 mg (2.5 mg base)/3 mL nebulization soln 3 ml inhalation Q4H PRN PRN SOB &/OR WHEEZING #180 mL 08/06/23 [Rx Last Taken Unknown] albuterol sulfate 2.5 mg/3 mL (0.083 %) solution for nebulization 2.5 mg (3 mL) inhalation Q2H PRN PRN Dyspnea, wheezing #180 vials 09/08/23 [Rx Last Taken Unknown] diazepam 2 mg tablet 2 mg PO Q6H PRN PRN anxiety 09/14/23 [History Last Taken Unknown] docusate sodium 100 mg capsule (Colace) 100 mg PO DAILY 09/14/23 [History Last Taken Unknown] Allergy/AdvReac Type Severity Reaction Status Date / Time budesonide AdvReac Severe Shortness Verified 09/14/23 18:22 [From Breztri Aerosphere] of breath formoterol AdvReac Severe Shortness Verified 09/14/23 18:22 [From Breztri Aerosphere] of breath glycopyrrolate AdvReac Severe Shortness Verified 09/14/23 18:22 [From Breztri Aerosphere] of breath aclidinium AdvReac Other Verified 09/14/23 18:22 [From Tudorza Pressair] doxycycline AdvReac Other Verified 09/14/23 18:22 gabapentin AdvReac Other Verified 09/14/23 18:22 ipratropium AdvReac Other Verified 09/14/23 18:22 levofloxacin [From Levaquin] AdvReac Other Verified 09/14/23 18:22 methylprednisolone AdvReac Other Verified 09/14/23 18:22 sertraline [From Zoloft] AdvReac Upset Verified 09/14/23 18:22 Stomach sulfamethoxazole AdvReac Other Verified 09/14/23 18:22 [From Bactrim] trimethoprim [From Bactrim] AdvReac Other Verified 09/14/23 18:22 umeclidinium AdvReac Other Verified 09/14/23 18:22 [From Incruse Ellipta] Family History Grandmother Cancer Lung Brother Diabetes Hypertension Father Hypertension Embolism Sister Hypertension Diabetes Surgical History History of bladder suspension procedure History of cholecystectomy History of tubal ligation Social History (Updated 09/15/23 @ 04:[address] Holly Moses MD) household members: spouse and family Smoking Status: Current every day smoker tobacco type: cigarettes Smoking packs per day: 0.25 Smoking cigarettes per day: 5.0 Tobacco: How many years used: 47 second hand exposure: Yes alcohol intake: never substance use type: does not use caffeine: Yes Type: coffee what type of physical activity do you participate in: none ROS ROS Narrative Admission Review of Systems: CONSTITUTIONAL: No weight loss, fever, chills, + weakness or fatigue. HEENT: Eyes: No visual loss, blurred vision, double vision or yellow sclerae. Ears, Nose, Throat: No hearing loss, sneezing, congestion, runny nose or sore throat. SKIN: No rash or itching, lesions, wounds. CARDIOVASCULAR: No chest pain, chest pressure or chest discomfort, palpitations, edema, orthopnea, syncopal events. RESPIRATORY: + Dyspnea, cough with mild sputum, wheezing. No hemoptysis. GASTROINTESTINAL: + anorexia, nausea without vomiting. No diarrhea, abdominal pain, melena, BRBPR. GENITOURINARY: No dysuria, frequency, urgency or retention. NEUROLOGICAL: No headache, dizziness, syncope, paralysis, ataxia, numbness or tingling in the extremities, focal weakness, change in bowel or bladder control, seizure. MUSCULOSKELETAL:+ muscle, back pain, joint pain or stiffness. HEMATOLOGIC: + Anemia, easy bleeding/bruising. LYMPHATICS: No enlarged nodes. No history of splenectomy. PSYCHIATRIC: + History of anxiety and depression. ENDOCRINOLOGIC: No reports of sweating, cold or heat intolerance. No polyuria or polydipsia. ALLERGIES: + History of asthma. Vital Signs Vital Signs Vital Signs: 09/14/23 18:22 09/14/23 19:34 09/14/23 19:43 Temperature 97.4 F L 97.5 F L Temperature Source Temporal Temporal Pulse Rate 108 H 94 110 H Respiratory Rate 18 24 H 24 H Respiratory Effort Respiratory Pattern Blood Pressure 150/67 H 154/74 H Blood Pressure Mean 94 100 Pulse Ox 98 96 Oxygen Delivery Method Nasal Cannula Nasal Cannula Oxygen Flow Rate (L/min) 2 2 09/14/23 20:00 09/14/23 20:10 09/14/23 21:06 Temperature 97.5 F L Temperature Source Oral Pulse Rate 105 H 86 Respiratory Rate 22 H 20 H Respiratory Effort Short of Breath Respiratory Pattern Tachypnea Blood Pressure 150/71 H 147/69 H Blood Pressure Mean 97 95 Pulse Ox 97 97 Oxygen Delivery Method Nasal Cannula Nasal Cannula Oxygen Flow Rate (L/min) 2 2 09/14/23 21:00 Temperature 97.6 F L Temperature Source Oral Pulse Rate 104 H Respiratory Rate 23 H Respiratory Effort Respiratory Pattern Blood Pressure 147/69 H Blood Pressure Mean 95 Pulse Ox 97 Oxygen Delivery Method Nasal Cannula Oxygen Flow Rate (L/min) 2 Weight Weight: 92 lb 6.4 oz Body Mass Index (BMI) 17.4 Physical Exam Narrative Physical Examination: General: Awake, alert, oriented x 3 and cooperative, seated upright in the ED bed, fatigued and ill-appearing. Skin: Normal color, normal turgor, no icterus, no cyanosis except occasional abrasion, staged ecchymoses. HEENT: AT/NC, EOMI, PERRLA, moderately dry MM, no carotid bruits or JVD noted. Lungs: Diminished, greater bases, left greater than right, mildly increased respiratory rate but no distress, mildly coarse, occasional end expiratory wheeze, no rales. Heart: Mildly tachycardic with regular rhythm; no gallop, rub audible. Abdomen: Soft, thin cachectic habitus, NTTP, ND, distant normal BS, no appreciated HSM. Extremities: No cyanosis, clubbing, or edema, evidence of muscle wasting. Neurological: Patient awake, alert, oriented as noted, cognitive function intact; pupils equally reactive to light and accommodation, cranial nerves grossly normal, moving all 4 extremities, no focal deficits, strength moderately to severely globally decreased secondary to acute presentation. Psychiatric: Affect appears flat, fatigued, ill-appearing, no acute evidence of depressive or anxiety feelings but does have underlying history. Results Lab / Micro Data 09/14/23 19:58 09/14/23 19:58 Labs: Laboratory Results - last 24 hr 09/14/23 19:58: WBC 11.2 H, RBC 4.38, Hgb 12.9, Hct 41.0, MCV 93.6, MCH 29.5, MCHC 31.5 L, RDW Std Deviation 42.2, RDW Coeff of Stormy 12.2, Plt Count 322, MPV 8.7, Immature Gran % (Auto) 0.400, Neut % (Auto) 83.6 H, Lymph % (Auto) 9.4 L, [place] % (Auto) 6.1, Eos % (Auto) 0.1, Baso % (Auto) 0.4, Absolute Neuts (auto) 9.3 H, Absolute Lymphs (auto) 1.05, Nucleated RBC % 0, Sodium 131 L, Potassium 4.5, Chloride 87 L, Carbon Dioxide 42.0 H, Anion Gap 2 L, BUN 14, Creatinine 0.41 L, Estim Creat Clear Calc 45.77, Est GFR (MDRD) Af Amer 198, Est GFR (MDRD) Non-Af 164, BUN/Creatinine Ratio 33.9 H, Glucose 111 H, Calcium 9.3, Troponin I High Sens 18 09/14/23 21:26: Urine Color Yellow, Urine Clarity Clear, Urine pH 8.0, Ur Specific [place] 1.010, Urine Protein 15 H, Urine Glucose (UA) Normal, Urine Ketones Negative, Urine Occult Blood 50 H, Urine Nitrite Negative, Urine Bilirubin Negative, Urine Urobilinogen Normal, Ur Leukocyte Esterase 100 H Micro: Microbiology 09/14/23 20:00 Mucosa - Nose SARS-CoV-2, Influenza & RSV (PCR) - Final Imaging Radiology Impression Chest X-Ray 09/14/23 20:14 IMPRESSION: Apparent new interstitial infiltrate in the left lower lobe possibly pneumonia. Other findings as above Electronically Signed: Francisco Escobedo MD at 21:06 EDT Reading Location ID and State: [facility] / [place] Tel , Service support , Assessment & Plan Assessment/Plan (1) Pneumonia: PLAN: Plan The patient is a 68 y/o F w/ PMHx: Anxiety and Depression/Chronic insomnia, Chronic COPD/Asthma w/ Chronic Hypoxic Respiratory Failure w/ Allergic Rhinitis, Tobacco use, HTN, HLD, GERD, Chart reported history of Diabetes mellitus type II who presents to the [facility] ED on 09/14/23 with history of generalized fatigue, malaise as well as weakness which has been worsening over the last several days reporting decreased energy to the point where it is difficult to even get across the room with increased dyspnea, occasional wheezing as well as cough with no specific fevers but poor oral intake as well prompting eventual ED evaluation. #1. Community Acquired LLL Pneumonia complicated by Acute on Chronic COPD/Asthma w/ Chronic Hypoxic Respiratory Failure: Will admit to MS, maintain on oxygen with wean as tolerated to home oxygen supplementation, continue ATC duonebs, PRN albuterol, maintain on IV Rocephin and Azithromycin, continue IV solumedrol which patient notes she is able to take, HOB, IS parameters w/ pending sputum cultures, full respiratory viral panel and urine antigens. PT/OT/CM consulted for discharge planning. #2. Anxiety and Depression/Chronic insomnia: Will cautiously continue patient home diazepam to avoid withdrawal, would benefit from consideration of alternate therapy And early outpatient follow-up and counseling. #3. Chart reported history of Diabetes mellitus type II: Last hemoglobin A1c noted 07/09/2023 5.3%, will defer Accu-Cheks and insulin sliding scale and allow cardiac diet. #4. Hypertension: Continue home regimen including metoprolol, PRN hydralazine. #5. Hyperlipidemia: Not on regimen, defer to outpatient. #6. GERD: We will continue patient home famotidine, as needed Mylanta. #7. Tobacco Abuse: Encouraged cessation, inpatient consultation per RT, NR if desired. #8. Allergic rhinitis: We will continue patient home fluticasone as well as loratadine home regimen. #9. Severe protein calorie malnutrition: Patient with significantly reduced BMI, likely in large part secondary to her underlying comorbidities and as noted, obvious muscle and fat loss, nutrition consulted. #10. DVT prophylaxis: Lovenox. #11. CODE status: Patient HCPOA and living will are not in place but she notes her who is present would be her decision-maker if she was unable to. Discussed CODE status at length including difference between FULL code, DNR-CCA and DNR-CC status. Following discussions about the differences in these status, requested Full Code status. Advanced Care Planning Face to Face Time: 16 minutes. Charges/Coding Visit Charges Inpatient E&M: 39069 Init Hosp L3 Procedures Hospitalists Procedures: 45120 Advncd Care Plan 30 Min
[2023-09-14 22:06] LABS: Bacteria RARE /hpf (None Seen); Red Blood Cells-Urine 5-10 SEEN /hpf (0-5); White Blood Cells 0-5 SEEN /hpf (0-5)
[2023-09-14] MEDS: MethylPREDNISolone 125 MG/2 ML Vial 80 MG IV (22:27)
[2023-09-14] MEDS: Ceftriaxone 2 GM in 0.9% Normal Saline (50mL MB+) 50 ML IV (22:27)
[2023-09-14] MEDS: Azithromycin 500 MG in Dextrose 5%-Water (250mL Bag) 250 ML 250 MG IV (23:08)
[2023-09-15] VITALS (13 sets, daily range): BP systolic 132–162; BP diastolic 67–77; PULSE 78–109; RESP 18–26; TEMP 36.5–37.2; O2SAT 92–98
[2023-09-15] MEDS: 0.9% Normal Saline (1000mL) 1,000 ML 100 ML IV (00:48)
--- NOTE | 2023-09-15 03:41 | NURSING ---
ASSIST X 1 UP TO BSC. VITALS CHECKED WHEN BACK TO BED. PULSE OX NOTED AT 83% WHILE ON 2L N/C. ENCOURAGED DEEP BREATHING, PT RECOVERED TO 92% ON 2L N/C
[2023-09-15] MEDS: HYDROcodone Bitartrate/Apap 5/325 Tablet PO ×3 (07:02→20:19)
[2023-09-15] MEDS: Ipratropium/Albuterol Sulfate 3 ML AMPUL.NEB INHALATION ×4 (07:27→19:17)
[2023-09-15 07:35] LABS: Absolute Lymphocyte Count 0.47 X10^3/uL (0.83-4.51); Absolute Neutrophil Count 5.8 X10^3/uL (2.0-7.7); Basophil# 0.01 X10^3/uL; Basophil% 0.2 % (0-1); Hematocrit 33.6 % (37-47); Hemoglobin 10.9 g/dL (12.0-15.0); Lymphocyte # 0.47 X10^3/ul (0.83-4.51); Lymphocyte % 7.4 % (19-41); Mean Corp Hgb Conc 32.4 g/dL (32-36); Mean Corpuscular Hgb 29.9 pg (27.0-32.0); Mean Corpuscular Volume 92.1 fL (81-99); Mean Platelet Vol. 8.8 fl (6.2-12.0); Monocyte# 0.08 X10^3/uL; Monocyte% 1.3 % (0-10); NRBC Flagged by Analyzer 0 % (0-5); Neutrophil # 5.78 X10^3/uL (2.7-7.7); Neutrophil % 90.6 % (47-70); POSITIVE DIFFERENTIAL YES; POSITIVE MORPHOLOGY YES; Platelet Count 269 K/mm3 (150-450); RBC Distribution Width CV 12.2 % (11.6-14.6); RBC Distribution Width SD 41.1 fl (35.1-43.9); Red Blood Count 3.65 M/mm3 (4.2-5.4); White Blood Count 6.4 K/mm3 (4.4-11.0)
[2023-09-15 07:38] LABS: Differential Indicated SCAN CRITERIA MET
[2023-09-15 08:02] LABS: ALB/GLOB Ratio 0.8 RATIO (0.9-2.4); AST(SGOT) 22 U/L (15-37); Alanine Aminotransfer ALT/SGPT 23 U/L (13-56); Albumin, Serum 2.8 g/dL (3.2-5.0); Alkaline Phosphatase 50 U/L (45-117); Anion Gap 3 (5-15); BUN 8 mg/dL (7-18); BUN/Creat Ratio 26.3 RATIO (10-20); Calcium,Total 8.5 mg/dL (8.5-10.1); Chloride 92 mmol/L (98-107); EST Glomerular Filtration Rate 233 mL/min (>60); Est Glom Filt Rate - Afr Amer 282 mL/min (>60); Estimated Creatinine Clearance 43.77 ml/min; Globulin 3.6 g/dL (2.2-4.2); Glucose 142 mg/dL (74-106); Potassium 4.2 mmol/L (3.5-5.1); Protein, Total 6.4 g/dL (6.4-8.2); Sodium Level 131 mmol/L (136-145)
[2023-09-15 08:16] LABS: Differential Comment SCANNED
[2023-09-15] MEDS: Acetaminophen 325 MG Tablet 650 MG PO (09:12)
[2023-09-15] MEDS: Metoprolol(XL)Succ 25 MG Tablet PO (09:32)
[2023-09-15] MEDS: Docusate Sodium 100 MG Capsule PO (09:34)
[2023-09-15] MEDS: Enoxaparin 30 MG/0.3 ML Syringe SC (09:35)
[2023-09-15] MEDS: Famotidine 20 MG Tablet PO (09:35)
--- NOTE | 2023-09-15 09:35 | CASEMGMT ---
MARIN PADILLA Face to Face with patient for initial transition planning/care coordination assessment. MARIN PADILLA introduced self and role at [facility]. Patient lying in bed, alert and oriented. Patient willing to participate in assessment and is able to answer all questions appropriately. Care providers, pharmacy, and demographics verified. PCP: Michelle Specialists: Anna Owen, java lead engineer; [facility] [place] Board Certified Arts Therapist Preferred Pharmacy: [facility] Insurance: [facility] Dual Prescription Benefit: yes Living Will/HPOA: none LNOK: , daughters Living Arrangements: Patient lives with in a single story home with 1 step and railing to enter. Patient states she is normally independent for selfcare but has needed more assistance from due to recent illness. Transportation: DME/HHC: Patient has shower chair, grab bars, walker, nebulizer, pulse ox, and home oxygen through [employer] at 2lpm with portability. Patient states her pulse ox is old and may not be working correctly, CM to provided pulse ox at discharge. No previous HHC or SNF. Patient interested in HHC at discharge, CM to provide list. Patient states he in not well either. RN VALERIE discussed Waiver program, patient voiced interest, SW updated. Patient wishes to discharge home with HHC. Patient states she has no further needs or concerns at this time. CM to follow for discharge planning needs that may arise. Disposition Plan: Patient to discharge home with HHC, family support and follow-up plans in place. Alma Rosa VILLANUEVA, RN, CM
[2023-09-15] MEDS: Fluticasone 0.05% 1 SPRAY NASAL.SRY NASAL ×2 (09:39→21:57)
--- NOTE | 2023-09-15 10:35 | CASEMGMT ---
Discharge Planning A list of?HH providers including quality and resource use data and consistent with the patient's preferred geographic region, medical needs, and insurance network was created in [employer] Guide.? This list was provided to the RN VALERIE. Deonna Trinidad, Discharge Planning Asst.
--- NOTE | 2023-09-15 13:44 | PN_ITS ---
Subjective Subjective Patient seen and examined. She complained of feeling weak and tired. She admits to a productive cough, but denies any chest pain, nausea, vomiting or any other symptoms. Review of systems is otherwise negative. She is on 2L of oxygen by nasal canula. Objective Data Objective Data Vital Signs: Vital Signs Temp Pulse Resp BP Pulse Ox O2 Del Method O2 Flow Rate 97.8 F 106 H 24 H 142/73 H 94 Nasal Cannula 2 09/15/23 07:51 09/15/23 11:12 09/15/23 11:12 09/15/23 09:32 09/15/23 07:51 09/15/23 13:28 09/15/23 13:28 FiO2 2 09/15/23 05:31 Oxygen Flow Rate (L/min) 2 Oxygen Delivery Method Nasal Cannula Weight: 88 lb 5.992 oz Body Mass Index (BMI) 16.1 Intake & Output: Intake and Output for Last 24 Hours 09/13/23 09/14/23 09/15/23 23:59 23:59 23:59 Intake Total 50 / 50 2255 / 2255 Balance 50 / 50 2255 / 2255 Medical Nutrition Assessment Dietitian: Malnutrition Criteria Met Start: 09/15/23 12:38 Freq: Status: Active Protocol: Document 09/15/23 12:38 AG (Rec: 09/15/23 12:38 AG [id number]) Nutrition Malnutrition Evidence of Malnutrition Exists Yes Malnutrition (severe): Chronic Evidenced By Suboptimal Energy Intake ( Severe),Weight Loss (Severe), Physical Changes (Severe) Clinical Problem Chronic Disease or Condition Related Malnutrition Etiology severe, chronic malnutrition related to inadequate energy intake w/ increased energy needs d/t COPD Signs/Symptoms as evidenced by unintentional 15.6#/15% wt loss x 2 months, estimated PO intake meeting < 75% of estimated energy needs x 2 months, severe muscle wasting/fat loss evident per physical exam in orbital, clavicle, acromion, and temporal areas Status Active Problem Recommendation Dietitian Recommendations/Changes will adjust diet to regular, ensure plus high protein 120mL 4x/day w/ medpass given evidence of malnutrition Lab / Micro Data 09/15/23 07:11 09/15/23 07:11 Labs: Laboratory Results - last 24 hr 09/14/23 19:58: WBC 11.2 H, RBC 4.38, Hgb 12.9, Hct 41.0, MCV 93.6, MCH 29.5, MCHC 31.5 L, RDW Std Deviation 42.2, RDW Coeff of Stormy 12.2, Plt Count 322, MPV 8.7, Immature Gran % (Auto) 0.400, Neut % (Auto) 83.6 H, Lymph % (Auto) 9.4 L, [place] % (Auto) 6.1, Eos % (Auto) 0.1, Baso % (Auto) 0.4, Absolute Neuts (auto) 9.3 H, Absolute Lymphs (auto) 1.05, Nucleated RBC % 0, Sodium 131 L, Potassium 4.5, Chloride 87 L, Carbon Dioxide 42.0 H, Anion Gap 2 L, BUN 14, Creatinine 0.41 L, Estim Creat Clear Calc 45.77, Est GFR (MDRD) Af Amer 198, Est GFR (MDRD) Non-Af 164, BUN/Creatinine Ratio 33.9 H, Glucose 111 H, Calcium 9.3, Troponin I High Sens 18 09/14/23 21:26: Urine Color Yellow, Urine Clarity Clear, Urine pH 8.0, Ur Specific [place] 1.010, Urine Protein 15 H, Urine Glucose (UA) Normal, Urine Ketones Negative, Urine Occult Blood 50 H, Urine Nitrite Negative, Urine Bilirubin Negative, Urine Urobilinogen Normal, Ur Leukocyte Esterase 100 H, Urine RBC 5-10 SEEN, Urine WBC 0-5 SEEN, Ur Squamous Epith Cells 0 SEEN, Urine Bacteria RARE, Urine Mucus 0 SEEN 09/15/23 07:11: WBC 6.4, RBC 3.65 L, Hgb 10.9 L, Hct 33.6 L, MCV 92.1, MCH 29.9, MCHC 32.4, RDW Std Deviation 41.1, RDW Coeff of Stormy 12.2, Plt Count 269, MPV 8.8, Immature Gran % (Auto) 0.500, Neut % (Auto) 90.6 H, Lymph % (Auto) 7.4 L, [place] % (Auto) 1.3, Eos % (Auto) 0.0, Baso % (Auto) 0.2, Absolute Neuts (auto) 5.8, Absolute Lymphs (auto) 0.47 L, Nucleated RBC % 0, Differential Comment SCANNED, Diff Path Review October, Sodium 131 L, Potassium 4.2, Chloride 92 L, Carbon Dioxide 36.0 H, Anion Gap 3 L, BUN 8, Creatinine 0.30 L, Estim Creat Clear Calc 43.77, Est GFR (MDRD) Af Amer 282, Est GFR (MDRD) Non-Af 233, BUN /Creatinine Ratio 26.3 H, Glucose 142 H, Calcium 8.5, Total Bilirubin 0.30, AST 22, ALT 23, Alkaline Phosphatase 50, Total Protein 6.4, Albumin 2.8 L, Globulin 3.6, Albumin/Globulin Ratio 0.8 L Micro: Microbiology 09/15/23 00:07 Mucosa - Nasopharyngeal Respiratory Panel (PCR) - Final 09/14/23 21:26 Urine, Clean Catch Legionella Antigen - Final 09/14/23 21:26 Urine, Clean Catch Streptococcus pneumoniae Antigen (M - Final 09/14/23 20:00 Mucosa - Nose SARS-CoV-2, Influenza & RSV (PCR) - Final Radiography Diagnostic Testing: Radiology Impression Chest X-Ray 09/14/23 20:14 IMPRESSION: Apparent new interstitial infiltrate in the left lower lobe possibly pneumonia. Other findings as above Electronically Signed: Francisco Escobedo MD at 21:06 EDT Reading Location ID and State: [facility] / [place] Tel , Service support , Physical Exam Const alert, oriented x3 and no apparent distress Constitutional Narrative: frail General Appearance: cooperative HEENT normocephalic, head/scalp atraumatic, moist oral mucous membranes and oropharynx normal Eyes PERRL and EOMs intact bilaterally Neck no lymphadenopathy and supple Lymph Lymphatic: no lymphadenopathy noted and no lymphedema noted Resp Resp Narrative: diminished breath sounds bibasally, no wheezes or crackles. On 2L of oxygen. Cardio regular rate, regular rhythm, S1 normal heart sound, S2 normal heart sound and no murmurs GI normal to inspection, nondistended, normoactive bowel sounds, soft to palpation and non-tender Extremity normal capillary refill, no clubbing, cyanosis or edema and no calf tenderness General Extremity: no tenderness to palpation of joints or extremities Skin General Skin Exam: no breakdown Neuro CN's II-XII intact bilaterally, no focal motor deficits, no sensory deficits noted and deep tendon reflexes 2+ bilaterally Motor Exam: strength 5/5 throughout and general weakness Psych thought process normal and cooperative Appearance: appropriate Assessment & Plan Assessment/Plan (1) Pneumonia: (2) COPD exacerbation: PLAN: Plan #Left lower lobe pneumonia * on IV cefriaxone and azithromycin * sputum cultures and respiratory panel is pending * breathing treatment with bronchodilators * titrate oyxgen to maintain sats >90% * #Acute COPD exacerbation * breathing treatment with bronchodilators * on IV solumedrol * titrate oxygen to maintain sats >905 * #Hyponatremia * sodium is 131. Hydrate gently with iVF and trend. * #Chronic respiratory failure due to COPD exacerbation * on 2L of oxygen chronically. * breathing treatment with bronchodilators * DVT prophylaxis:lovenox Charges/Coding Visit Charges Inpatient E&M: 90508 Subs Hosp L2
--- NOTE | 2023-09-15 14:26 | CASEMGMT ---
Social Work SW received referral from RNCM for the Waiver program. SW submitted an online application with [employer] for the home waiver program. SW met with pt and spouse and updated that Waiver referral has been made. Pt is appreciative. Pt also inquiring about Palliative Medicine. SW explained Palliative medicine program to pt and spouse and pt is requesting to have this services. Referral to be made. Pt then asking about smoking cessation. Pt able to state that she does not smoke as much as she once did, however she knows it would be in her best interest to stop all together. Pt also openly discussing ongoing depression and anxiety with SW. Pt inquiring about medications. SW encouraged pt to speak with physician and specifically PCP about this. Pt states that PCP has set up an appointment with a counselor at the [facility] and appointment is soon. SW provided supportive listening to pt and encouraged pt to keep appointment with counselor and speak with PCP regarding medication. RNVALERIE updated and to make referral to Palliative Medicine and Smoking Cessation program. FRANTZ Sood
--- NOTE | 2023-09-15 14:58 | CASEMGMT ---
Received notification from that pt is interested in palliative care and smoking cessation. Received order for palliative care, used [facility] Palliative care screening tool and pt met criteria. Email to palliative care at this time for referral. TC to [facility], they do have pt on list for smoking cessation program and are aware that pt is interested.
--- NOTE | 2023-09-15 16:25 | NURSING ---
All documentation by nursing care attendant Isabelle Carrera reviewed by clinical nursing coordinator Francoise Lantigua RN.
[2023-09-15] MEDS: Ceftriaxone 1 GM/50 ML BAG IV (21:55)
[2023-09-15] MEDS: Ensure Plus High Protein 120 ML LIQUID PO (22:01)
[2023-09-15] MEDS: diazePAM 2 MG Tablet PO (22:17)
[2023-09-15] MEDS: Azithromycin 500 MG in Dextrose 5%-Water (250mL Bag) 250 ML 250 MG IV (23:14)
[2023-09-16] VITALS (14 sets, daily range): BP systolic 128–139; BP diastolic 69–75; PULSE 65–102; RESP 16–20; TEMP 36.4–37.3; O2SAT 94–99; BMI 16.2
[2023-09-16] MEDS: 0.9% Saline Lock 10 ML Syringe IV (04:44)
[2023-09-16] MEDS: Ipratropium/Albuterol Sulfate 3 ML AMPUL.NEB INHALATION ×4 (07:07→19:42)
[2023-09-16] MEDS: Famotidine 20 MG Tablet PO (09:16)
[2023-09-16] MEDS: Enoxaparin 30 MG/0.3 ML Syringe SC (09:16)
[2023-09-16] MEDS: Fluticasone 0.05% 1 SPRAY NASAL.SRY NASAL (09:17)
[2023-09-16] MEDS: Metoprolol(XL)Succ 25 MG Tablet PO (09:17)
[2023-09-16] MEDS: Docusate Sodium 100 MG Capsule PO (09:18)
[2023-09-16] MEDS: Ensure Plus High Protein 120 ML LIQUID PO ×4 (09:19→21:19)
[2023-09-16 09:31] LABS: Pathologist Review Reviewed
[2023-09-16 09:58] LABS: Absolute Lymphocyte Count 0.37 X10^3/uL (0.83-4.51); Hemoglobin 12.2 g/dL (12.0-15.0); Lymphocyte # 0.37 X10^3/ul (0.83-4.51); Lymphocyte % 4.9 % (19-41); Mean Corp Hgb Conc 32.1 g/dL (32-36); Mean Corpuscular Hgb 30.4 pg (27.0-32.0); Mean Corpuscular Volume 94.8 fL (81-99); Mean Platelet Vol. 8.8 fl (6.2-12.0); Monocyte# 0.08 X10^3/uL; Monocyte% 1.1 % (0-10); NRBC Flagged by Analyzer 0 % (0-5); Neutrophil # 7.02 X10^3/uL (2.7-7.7); Neutrophil % 93.7 % (47-70); POSITIVE DIFFERENTIAL YES; Platelet Count 329 K/mm3 (150-450); RBC Distribution Width CV 12.2 % (11.6-14.6); Red Blood Count 4.01 M/mm3 (4.2-5.4); White Blood Count 7.5 K/mm3 (4.4-11.0)
[2023-09-16 10:41] LABS: Anion Gap 5 (5-15); BUN 12 mg/dL (7-18); BUN/Creat Ratio 21.9 RATIO (10-20); Calcium,Total 8.7 mg/dL (8.5-10.1); Chloride 90 mmol/L (98-107); Creatinine, Serum 0.55 mg/dL (0.55-1.02); EST Glomerular Filtration Rate 118 mL/min (>60); Est Glom Filt Rate - Afr Amer 143 mL/min (>60); Estimated Creatinine Clearance 43.77 ml/min; Glucose 190 mg/dL (74-106); Potassium 4.1 mmol/L (3.5-5.1); Sodium Level 132 mmol/L (136-145)
--- NOTE | 2023-09-16 11:01 | PN_ITS ---
Subjective Subjective Patient seen and examined. She complained of feeling weak. She denied any fever, chills, cough, chest pain, palpitations, dizziness, nausea, vomiting or any other symptoms. Review of systems is otherwise negative. Objective Data Objective Data Vital Signs: Vital Signs Temp Pulse Resp BP Pulse Ox O2 Del Method O2 Flow Rate 97.6 F L 101 H 20 H 138/71 H 98 Nasal Cannula 2 09/16/23 04:43 09/16/23 09:17 09/16/23 10:00 09/16/23 09:17 09/16/23 10:00 09/16/23 10:00 09/16/23 10:00 FiO2 2 09/15/23 05:31 Oxygen Flow Rate (L/min) 2 Oxygen Delivery Method Nasal Cannula Weight: 88 lb 5.78 oz Body Mass Index (BMI) 16.2 Intake & Output: Intake and Output for Last 24 Hours 09/14/23 09/15/23 09/16/23 23:59 23:59 23:59 Intake Total 50 / 50 2305 / 2505 655.00 / 655.00 Balance 50 / 50 2305 / 2505 655.00 / 655.00 Medical Nutrition Assessment Dietitian: Malnutrition Criteria Met Start: 09/15/23 12:38 Freq: Status: Active Protocol: Document 09/15/23 12:38 (Rec: 09/15/23 12:38 [id number]) Nutrition Malnutrition Evidence of Malnutrition Exists Yes Malnutrition (severe): Chronic Evidenced By Suboptimal Energy Intake ( Severe),Weight Loss (Severe), Physical Changes (Severe) Clinical Problem Chronic Disease or Condition Related Malnutrition Etiology severe, chronic malnutrition related to inadequate energy intake w/ increased energy needs d/t COPD Signs/Symptoms as evidenced by unintentional 15.6#/15% wt loss x 2 months, estimated PO intake meeting < 75% of estimated energy needs x 2 months, severe muscle wasting/fat loss evident per physical exam in orbital, clavicle, acromion, and temporal areas Status Active Problem Recommendation Dietitian Recommendations/Changes will adjust diet to regular, ensure plus high protein 120mL 4x/day w/ medpass given evidence of malnutrition Lab / Micro Data 09/16/23 09:45 09/16/23 09:45 Labs: Laboratory Results - last 24 hr 09/15/23 07:11: Diff Path Review Reviewed 09/16/23 09:45: WBC 7.5, RBC 4.01 L, Hgb 12.2, Hct 38.0, MCV 94.8, MCH 30.4, MCHC 32.1, RDW Std Deviation 43.0, RDW Coeff of Stormy 12.2, Plt Count 329, MPV 8.8, Immature Gran % (Auto) 0.300, Neut % (Auto) 93.7 H, Lymph % (Auto) 4.9 L, Chambers % (Auto) 1.1, Eos % (Auto) 0.0, Baso % (Auto) 0.0, Absolute Neuts (auto) 7.0, Absolute Lymphs (auto) 0.37 L, Nucleated RBC % 0, Sodium 132 L, Potassium 4.1, Chloride 90 L, Carbon Dioxide 37.0 H, Anion Gap 5, BUN 12, Creatinine 0.55, Estim Creat Clear Calc 43.77, Est GFR (MDRD) Af Amer 143, Est GFR (MDRD) Non-Af 118, BUN/Creatinine Ratio 21.9 H, Glucose 190 H, Calcium 8.7 Micro: Microbiology 09/15/23 22:00 Sputum, Expectorated/Coughed Gram Stain - Final 09/15/23 00:07 Mucosa - Nasopharyngeal Respiratory Panel (PCR) - Final 09/14/23 21:26 Urine, Clean Catch Legionella Antigen - Final 09/14/23 21:26 Urine, Clean Catch Streptococcus pneumoniae Antigen (M - Final 09/14/23 20:00 Mucosa - Nose SARS-CoV-2, Influenza & RSV (PCR) - Final Physical Exam Const alert, oriented x3 and no apparent distress Constitutional Narrative: frail General Appearance: cooperative HEENT normocephalic, head/scalp atraumatic, moist oral mucous membranes and oropharynx normal Eyes PERRL and EOMs intact bilaterally Neck no lymphadenopathy and supple Lymph Lymphatic: no lymphadenopathy noted and no lymphedema noted Resp Resp Narrative: diminished breath sounds bibasally, no wheezes or crackles. On 2L of oxygen. Cardio regular rate, regular rhythm, S1 normal heart sound, S2 normal heart sound and no murmurs GI normal to inspection, nondistended, normoactive bowel sounds, soft to palpation and non-tender Extremity normal capillary refill, no clubbing, cyanosis or edema and no calf tenderness General Extremity: no tenderness to palpation of joints or extremities Skin General Skin Exam: no breakdown Neuro CN's II-XII intact bilaterally, no focal motor deficits, no sensory deficits noted and deep tendon reflexes 2+ bilaterally Motor Exam: strength 5/5 throughout and general weakness Psych thought process normal and cooperative Appearance: appropriate Assessment & Plan Assessment/Plan (1) Pneumonia: (2) COPD exacerbation: PLAN: Plan #Left lower lobe pneumonia * on IV cefriaxone and azithromycin * sputum cultures and respiratory panel is pending * breathing treatment with bronchodilators * titrate oyxgen to maintain sats >90% * #Acute COPD exacerbation * breathing treatment with bronchodilators * on IV solumedrol * titrate oxygen to maintain sats >905 * #Hyponatremia * sodium is slightly up to 132. Hydrate gently with iVF and trend. * #Chronic respiratory failure due to COPD exacerbation * on 2L of oxygen chronically. * breathing treatment with bronchodilators * DVT prophylaxis:lovenox Charges/Coding Visit Charges Inpatient E&M: 30344 Subs Hosp L2
--- NOTE | 2023-09-16 11:42 | CASEMGMT ---
Addendum entered by Quyen Reyna 09/16/23 15:50: MARIN PADILLA back into pt room, pt has chosen 1. [facility] 2. [facility] and 3. [facility]. TC to [facility], spoke with Yana, she states they do not take pt insurance plan. Referral to [facility] via careport at this time. Original Note: MARIN PADILLA into pt room, pt made aware that a palliative care referral was made. Discussed HHC with patient regarding SN, PT and OT for energy conservation. Pt is agreeable to services. Provided her with a HH list created by [employer] account assistant. Pt to review and give top 3 preferences. MARIN PADILLA to check back.
[2023-09-16] MEDS: HYDROcodone Bitartrate/Apap 5/325 Tablet PO ×2 (11:43→19:28)
[2023-09-16] MEDS: diazePAM 2 MG Tablet PO ×2 (11:46→21:19)
[2023-09-16] MEDS: 0.9% Normal Saline (1000mL) 1,000 ML 75 ML IV (11:51)
--- NOTE | 2023-09-16 14:28 | CON.PCM.ID_ITS ---
Assessment & Plan Assessment/Plan (1) Pneumonia: PLAN: UAg neg. On azithro/ceftriaxone, plan on 5 day course of abx. Can change to po azithro/augmentin at discharge to complete the course. Consider short course of steroids given her copd. Will follow, thank you (2) COPD exacerbation: HPI Consult Data Date of Consult: 09/16/23 HPI Narrative Reason for Consultation: pneumonia HPI Narrative: LACEY NICOLE, is a 68 F with COPD on 2L home O2, presented to ED 09/13 with several days worsened fatigue, increased cough and sputum production. No fever or chills. No body aches. Some associated nausea. Came to ED, admitted on azithro/ceftriaxone, feeling a little better. Full ROS performed and neg except as noted above. [facility] Medical History Anxiety and depression Asthma Chronic hypoxemic respiratory failure COPD (chronic obstructive pulmonary disease) COVID-19 Emphysema lung GERD (gastroesophageal reflux disease) History of diabetes mellitus History of essential hypertension Insomnia Kidney stones Mediastinal lymphadenopathy Osteoporosis Smoker Tobacco dependence due to cigarettes Home Medications hydrocodone-acetaminophen 5-325mg 5mg-325mg 1 ea PO PRN PRN Pain 09/30/17 [History Last Taken 07/08/23] cholecalciferol (vitamin D3) 50 mcg (2,000 unit) tablet 2,000 unit PO DAILY supplement 11/18/18 [History Last Taken 07/08/23] famotidine 20 mg tablet 20 mg PO BID indigestion 12/04/21 [History Last Taken 07/08/23] tizanidine 4 mg capsule 4 mg PO BID PRN MUSCLE SPASMS 12/04/21 [History Last Taken 02/15/22 22:00] metoprolol succinate 25 mg tablet,extended release 24 hr 25 mg PO DAILY heart rate 02/05/22 [History Last Taken 07/08/23] loratadine 10 mg capsule 10 mg PO DAILY PRN Allergies #90 caps 06/18/22 [Rx Last Taken 07/08/23] fluticasone propionate 50 mcg/actuation nasal spray,suspension (Flonase Allergy Relief) 1 spray intranasal BID allergy #15.8 mL 04/23/23 [Rx Last Taken 07/08/23] ipratropium 20 mcg-albuterol 100 mcg/actuation mist for inhalation (Combivent Respimat) 1 puff inhalation Q6H see dx #4 grams 04/23/23 [Rx Last Taken Unknown] mometasone-formoterol HFA 200 mcg-5 mcg/actuation aerosol inhaler (Dulera) 2 puff inhalation BID copd #13 grams 06/14/23 [Rx Last Taken 07/08/23] alendronate 70 mg tablet 70 mg PO .qtuesday osteo 07/08/23 [History Last Taken 07/06/23] albuterol sulfate 90 mcg/actuation aerosol inhaler (Ventolin HFA) 2 puff inhalation Q4H PRN shortness of breath or wheezing #8.5 grams 07/12/23 [Rx Last Taken Unknown] ipratropium 0.5 mg-albuterol 3 mg (2.5 mg base)/3 mL nebulization soln 3 ml inhalation Q4H PRN PRN SOB &/OR WHEEZING #180 mL 08/06/23 [Rx Last Taken Unknown] albuterol sulfate 2.5 mg/3 mL (0.083 %) solution for nebulization 2.5 mg (3 mL) inhalation Q2H PRN PRN Dyspnea, wheezing #180 vials 09/08/23 [Rx Last Taken Unknown] diazepam 2 mg tablet 2 mg PO Q6H PRN PRN anxiety 09/14/23 [History Last Taken Unknown] docusate sodium 100 mg capsule (Colace) 100 mg PO DAILY 09/14/23 [History Last Taken Unknown] Allergy/AdvReac Type Severity Reaction Status Date / Time budesonide AdvReac Severe Shortness Verified 09/14/23 18:22 [From [employer]] of breath formoterol AdvReac Severe Shortness Verified 09/14/23 18:22 [From [employer]] of breath glycopyrrolate AdvReac Severe Shortness Verified 09/14/23 18:22 [From [employer]] of breath aclidinium AdvReac Other Verified 09/14/23 18:22 [From [facility]] doxycycline AdvReac Other Verified 09/14/23 18:22 gabapentin AdvReac Other Verified 09/14/23 18:22 ipratropium AdvReac Other Verified 09/14/23 18:22 levofloxacin [From Levaquin] AdvReac Other Verified 09/14/23 18:22 methylprednisolone AdvReac Other Verified 09/14/23 18:22 sertraline [From Zoloft] AdvReac Upset Verified 09/14/23 18:22 Stomach sulfamethoxazole AdvReac Other Verified 09/14/23 18:22 [From Bactrim] trimethoprim [From Bactrim] AdvReac Other Verified 09/14/23 18:22 umeclidinium AdvReac Other Verified 09/14/23 18:22 [From [employer]] Family History Grandmother Cancer Lung Brother Diabetes Hypertension Father Hypertension Embolism Sister Hypertension Diabetes Surgical History History of bladder suspension procedure History of cholecystectomy History of tubal ligation Social History (Updated 09/15/23 @ 04:[address] Holly Moses MD) household members: spouse and family Smoking Status: Current every day smoker tobacco type: cigarettes Smoking packs per day: 0.25 Smoking cigarettes per day: 5.0 Tobacco: How many years used: 47 second hand exposure: Yes alcohol intake: never substance use type: does not use caffeine: Yes Type: coffee what type of physical activity do you participate in: none Physical Exam Const alert, oriented x3 and no apparent distress General Appearance: cooperative HEENT normocephalic and head/scalp atraumatic Eyes PERRL and EOMs intact bilaterally Neck supple and No nodes Resp Auscultation: rales, rhonchi and wheezes Cardio regular rate and regular rhythm GI soft to palpation, non-tender and non-distended Extremity General Extremity: Negative for edema Skin no rashes or lesions noted Neuro CN's II-XII intact bilaterally Medical Records Data Medical Nutrition Assessment Dietitian: Malnutrition Criteria Met Start: 09/15/23 12:38 Freq: Status: Active Protocol: Document 09/15/23 12:38 (Rec: 09/15/23 12:38 [id number]) Nutrition Malnutrition Evidence of Malnutrition Exists Yes Malnutrition (severe): Chronic Evidenced By Suboptimal Energy Intake ( Severe),Weight Loss (Severe), Physical Changes (Severe) Clinical Problem Chronic Disease or Condition Related Malnutrition Etiology severe, chronic malnutrition related to inadequate energy intake w/ increased energy needs d/t COPD Signs/Symptoms as evidenced by unintentional 15.6#/15% wt loss x 2 months, estimated PO intake meeting < 75% of estimated energy needs x 2 months, severe muscle wasting/fat loss evident per physical exam in orbital, clavicle, acromion, and temporal areas Status Active Problem Recommendation Dietitian Recommendations/Changes will adjust diet to regular, ensure plus high protein 120mL 4x/day w/ medpass given evidence of malnutrition Lab / Micro Data Attestation: I reviewed the patient's lab results. 09/16/23 09:45 09/16/23 09:45 Labs: Laboratory Results - last 24 hr 09/15/23 07:11: Diff Path Review Reviewed 09/16/23 09:45: WBC 7.5, RBC 4.01 L, Hgb 12.2, Hct 38.0, MCV 94.8, MCH 30.4, MCHC 32.1, RDW Std Deviation 43.0, RDW Coeff of Stormy 12.2, Plt Count 329, MPV 8.8, Immature Gran % (Auto) 0.300, Neut % (Auto) 93.7 H, Lymph % (Auto) 4.9 L, Dupage % (Auto) 1.1, Eos % (Auto) 0.0, Baso % (Auto) 0.0, Absolute Neuts (auto) 7.0, Absolute Lymphs (auto) 0.37 L, Nucleated RBC % 0, Sodium 132 L, Potassium 4.1, Chloride 90 L, Carbon Dioxide 37.0 H, Anion Gap 5, BUN 12, Creatinine 0.55, Estim Creat Clear Calc 43.77, Est GFR (MDRD) Af Amer 143, Est GFR (MDRD) Non-Af 118, BUN/Creatinine Ratio 21.9 H, Glucose 190 H, Calcium 8.7 Micro: Microbiology 09/14/23 22:24 Blood Culture (Wb) - Anticubital Right Blood Culture - Preliminary 09/15/23 22:00 Sputum, Expectorated/Coughed Gram Stain - Final
[2023-09-16] MEDS: Mag Hydrox/Al Hydrox/Simeth 30 ML UDC PO (18:08)
[2023-09-16] MEDS: Ceftriaxone 1 GM/50 ML BAG IV (21:13)
[2023-09-17] VITALS (12 sets, daily range): BP systolic 121–144; BP diastolic 65–72; PULSE 81–100; RESP 18–20; TEMP 36.5–36.8; O2SAT 89–100; BMI 17.6
[2023-09-17] MEDS: 0.9% Saline Lock 10 ML Syringe IV ×3 (00:02→13:44)
[2023-09-17] MEDS: Azithromycin 500 MG in Dextrose 5%-Water (250mL Bag) 250 ML 250 MG IV ×2 (00:02→21:25)
[2023-09-17] MEDS: Fluticasone 0.05% 1 SPRAY NASAL.SRY NASAL ×3 (00:12→21:06)
[2023-09-17] MEDS: 0.9% Normal Saline (1000mL) 1,000 ML 75 ML IV (04:24)
[2023-09-17] MEDS: HYDROcodone Bitartrate/Apap 5/325 Tablet PO ×3 (04:38→18:10)
[2023-09-17] MEDS: Ipratropium/Albuterol Sulfate 3 ML AMPUL.NEB INHALATION ×4 (07:21→19:13)
[2023-09-17 08:13] LABS: Absolute Lymphocyte Count 0.49 X10^3/uL (0.83-4.51); Absolute Neutrophil Count 7.1 X10^3/uL (2.0-7.7); Hemoglobin 11.9 g/dL (12.0-15.0); Lymphocyte # 0.49 X10^3/ul (0.83-4.51); Lymphocyte % 6.3 % (19-41); Mean Corp Hgb Conc 31.3 g/dL (32-36); Mean Corpuscular Hgb 29.5 pg (27.0-32.0); Mean Corpuscular Volume 94.3 fL (81-99); Mean Platelet Vol. 9.7 fl (6.2-12.0); Monocyte# 0.11 X10^3/uL; Monocyte% 1.4 % (0-10); NRBC Flagged by Analyzer 0 % (0-5); Neutrophil # 7.11 X10^3/uL (2.7-7.7); Neutrophil % 91.8 % (47-70); POSITIVE DIFFERENTIAL YES; Platelet Count 266 K/mm3 (150-450); RBC Distribution Width CV 12.5 % (11.6-14.6); RBC Distribution Width SD 43.7 fl (35.1-43.9); Red Blood Count 4.03 M/mm3 (4.2-5.4); White Blood Count 7.8 K/mm3 (4.4-11.0)
[2023-09-17] MEDS: Metoprolol(XL)Succ 25 MG Tablet PO (09:04)
[2023-09-17] MEDS: Ensure Plus High Protein 120 ML LIQUID PO ×4 (09:04→21:05)
[2023-09-17] MEDS: Famotidine 20 MG Tablet PO (09:04)
[2023-09-17] MEDS: Enoxaparin 30 MG/0.3 ML Syringe SC (09:05)
[2023-09-17] MEDS: Docusate Sodium 100 MG Capsule PO (09:05)
[2023-09-17 10:17] LABS: Anion Gap 6 (5-15); BUN 17 mg/dL (7-18); BUN/Creat Ratio 43.9 RATIO (10-20); Calcium,Total 8.7 mg/dL (8.5-10.1); Chloride 93 mmol/L (98-107); Creatinine, Serum 0.39 mg/dL (0.55-1.02); EST Glomerular Filtration Rate 176 mL/min (>60); Est Glom Filt Rate - Afr Amer 213 mL/min (>60); Estimated Creatinine Clearance 47.55 ml/min; Glucose 110 mg/dL (74-106); Potassium 4.7 mmol/L (3.5-5.1); Sodium Level 133 mmol/L (136-145)
--- NOTE | 2023-09-17 11:09 | CASEMGMT ---
Addendum entered by Quyen Reyna 09/17/23 14:50: Updated by ID that pt will not be dc'ing today and she will likely be here a few days. Update sent to [facility] as well as palliative care. Addendum entered by Quyen Reyna 09/17/23 12:57: MARIN PADILLA into pt room. Pt is aware that a referral was inadvertently sent to all agencies on her list and pt was declined by all agencies except for [facility]. Pt is agreeable to [facility]. She is aware that palliative was notified that pt will dc today. Pt dtr present and she states that she has been contacted regarding care. Pt asks if she can have a FWW. Provided pt with a verbal local in network list of DME companies. Pt states she wants who can get it here the fastest. Pt aware this likely would be [employer], she agrees to this. Pt aware that she did not need an increase in oxygen rx. Pt and dtr deny any further needs at this time. Addendum entered by Quyen Reyna 09/17/23 11:42: Email to palliative care to make aware pt will dc today. Original Note: Pt does not require increased oxygen rx.
--- NOTE | 2023-09-17 12:02 | CASEMGMT ---
Discharge Planning [facility] declined referral. RN CM updated. Deonna Trinidad, Discharge Planning Asst.
--- NOTE | 2023-09-17 13:43 | ECHOD_ITS ---
Reason For Study: Murmur Procedure This was a 2D Doppler, Color Flow transthoracic echocardiogram. The study was technically difficult. Exam performed portable in patient room. Left Ventricle Normal left ventricle. The estimated ejection fraction is 55-60 %. Right Ventricle Normal right ventricle. Normal systolic function. Atria Normal left atrium. Normal right atrium. Mitral Valve The mitral valve is structurally normal. No prolapse or stenosis seen. Trivial mitral valve insufficiency. Tricuspid Valve Normal tricuspid valve. Aortic Valve Trisinus/trileaflet aortic valve. Pulmonic Valve The pulmonic valve is not well visualized. Great Vessels Normal aortic root. Pericardium/Pleural No pericardial effusion. MMode/2D Measurements & Calculations LVIDd: 2.9 cm IVSd: 0.95 cm Ao root diam: 3.0 cm LVIDs: 1.8 cm LVPWd: 1.0 cm LA dimension: 3.1 cm RVDd: 3.5 cm FS: 39.4 % LAV(MOD-bp): 35.8 ml LA A4 area: 13.9 cm2 RA A4 area: 10.6 cm2 LAV(MOD-bp) Indexed: 25.6 ml/m2 LAV(MOD-sp2): 38.3 ml LAV(MOD-sp4): 32.5 ml Time Measurements MV dec time: 0.19 sec Doppler Measurements & Calculations MV E max ciro: 97.9 cm/sec Lat Peak E' Ciro: 8.8 cm/sec Med Peak E' Ciro: 8.3 cm/sec MV A max ciro: 128.9 cm/sec E/E' lat: 11.2 E/E' med: 11.8 MV E/A: 0.76 MV V2 max: 160.2 cm/sec MV P1/2t max ciro: 121.4 cm/sec Ao V2 max: 153.9 cm/sec MV max P.3 mmHg MV P1/2t: 60.5 msec Ao max P.5 mmHg MV V2 mean: 90.2 cm/sec MV dec slope: 587.3 cm/sec2 Ao V2 mean: 98.0 cm/sec MV mean P.9 mmHg MVA(P1/2t): 3.6 cm2 Ao mean P.7 mmHg MV V2 VTI: 26.0 cm Ao V2 VTI: 25.2 cm AV (velocity ratio): 0.97 LV V1 max: 135.2 cm/sec PA V2 max: 101.1 cm/sec LV V1 max P.3 mmHg PA V2 mean: 74.6 cm/sec LV V1 mean P.9 mmHg LV V1 mean: 93.9 cm/sec LV V1 VTI: 24.3 cm ECHO/Echo Complete Interpretation Summary The estimated ejection fraction is 55-60 %. No previous study to compare Ordering Physician: Eric Rios Performed By: Mitchell Matthews RCS
--- NOTE | 2023-09-17 14:57 | PN_ITS ---
Subjective Subjective Patient seen and examined. She had no active complaints. Plan had been to discharge her today for lab later results clarify for her gram-positive coccobacilli which was noted to blood cultures. Clear yeastlike organism. Discharge therefore canceled. She had no active complaints. She denied any fever, chills, palpitations, dizziness, nausea vomiting or any other symptoms. Review of systems otherwise negative. Objective Data Objective Data Vital Signs: Vital Signs Temp Pulse Resp BP Pulse Ox O2 Del Method O2 Flow Rate 98.0 F 93 20 H 121/67 H 98 Nasal Cannula 2 09/17/23 13:43 09/17/23 14:07 09/17/23 14:07 09/17/23 13:43 09/17/23 13:43 09/17/23 13:43 09/17/23 13:43 FiO2 2 09/15/23 05:31 Oxygen Flow Rate (L/min) [ 3 AMBULATING with Oxygen #2] Oxygen Flow Rate (L/min) [ 2 AMBULATING with Oxygen #1] Oxygen Flow Rate (L/min) [At 2 REST with Oxygen] Oxygen Flow Rate (L/min) 2 Oxygen Delivery Method Nasal Cannula Weight: 96 lb Body Mass Index (BMI) 17.6 Intake & Output: Intake and Output for Last 24 Hours 09/15/23 09/16/23 09/17/23 23:59 23:59 23:59 Intake Total 2305 / 2505 1755.00 / 1755.00 1255 / 1255 Balance 2305 / 2505 1755.00 / 1755.00 1255 / 1255 Medical Nutrition Assessment Dietitian: Malnutrition Criteria Met Start: 09/15/23 12:38 Freq: Status: Active Protocol: Document 09/15/23 12:38 (Rec: 09/15/23 12:38 [id number]) Nutrition Malnutrition Evidence of Malnutrition Exists Yes Malnutrition (severe): Chronic Evidenced By Suboptimal Energy Intake ( Severe),Weight Loss (Severe), Physical Changes (Severe) Clinical Problem Chronic Disease or Condition Related Malnutrition Etiology severe, chronic malnutrition related to inadequate energy intake w/ increased energy needs d/t COPD Signs/Symptoms as evidenced by unintentional 15.6#/15% wt loss x 2 months, estimated PO intake meeting < 75% of estimated energy needs x 2 months, severe muscle wasting/fat loss evident per physical exam in orbital, clavicle, acromion, and temporal areas Status Active Problem Recommendation Dietitian Recommendations/Changes will adjust diet to regular, ensure plus high protein 120mL 4x/day w/ medpass given evidence of malnutrition Lab / Micro Data 09/17/23 07:45 09/17/23 07:45 Labs: Laboratory Results - last 24 hr 09/17/23 07:45: WBC 7.8, RBC 4.03 L, Hgb 11.9 L, Hct 38.0, MCV 94.3, MCH 29.5, MCHC 31.3 L, RDW Std Deviation 43.7, RDW Coeff of Stormy 12.5, Plt Count 266, MPV 9.7, Immature Gran % (Auto) 0.500, Neut % (Auto) 91.8 H, Lymph % (Auto) 6.3 L, Rains % (Auto) 1.4, Eos % (Auto) 0.0, Baso % (Auto) 0.0, Absolute Neuts (auto) 7.1, Absolute Lymphs (auto) 0.49 L, Nucleated RBC % 0, Sodium 133 L, Potassium 4.7, Chloride 93 L, Carbon Dioxide 34.0 H, Anion Gap 6, BUN 17, Creatinine 0.39 L, Estim Creat Clear Calc 47.55, Est GFR (MDRD) Af Amer 213, Est GFR (MDRD) Non- Af 176, BUN/Creatinine Ratio 43.9 H, Glucose 110 H, Calcium 8.7 Micro: Microbiology 09/15/23 22:00 Sputum, Expectorated/Coughed Gram Stain - Final 09/15/23 22:00 Sputum, Expectorated/Coughed Respiratory Culture - Prelimi nary Gram negative manav 09/14/23 22:24 Blood Culture (Wb) - Anticubital Right Blood Culture - Preliminary Yeast Like Organism 09/14/23 22:00 Blood Culture (Wb) - Right Hand Blood Culture - Preliminary No growth in 48 hours. 09/15/23 00:07 Mucosa - Nasopharyngeal Respiratory Panel (PCR) - Final 09/14/23 21:26 Urine, Clean Catch Legionella Antigen - Final 09/14/23 21:26 Urine, Clean Catch Streptococcus pneumoniae Antigen (M - Final 09/14/23 20:00 Mucosa - Nose SARS-CoV-2, Influenza & RSV (PCR) - Final Physical Exam Const alert, oriented x3 and no apparent distress Constitutional Narrative: frail General Appearance: cooperative HEENT normocephalic, head/scalp atraumatic, moist oral mucous membranes and oropharynx normal Eyes PERRL and EOMs intact bilaterally Neck no lymphadenopathy and supple Lymph Lymphatic: no lymphadenopathy noted and no lymphedema noted Resp Resp Narrative: diminished breath sounds bibasally, no wheezes or crackles. On 2L of oxygen. Cardio regular rate, regular rhythm, S1 normal heart sound, S2 normal heart sound and no murmurs GI normal to inspection, nondistended, normoactive bowel sounds, soft to palpation and non-tender Extremity normal capillary refill, no clubbing, cyanosis or edema and no calf tenderness General Extremity: no tenderness to palpation of joints or extremities Skin General Skin Exam: no breakdown Neuro CN's II-XII intact bilaterally, no focal motor deficits, no sensory deficits noted and deep tendon reflexes 2+ bilaterally Motor Exam: strength 5/5 throughout and general weakness Psych thought process normal and cooperative Appearance: appropriate Assessment & Plan Assessment/Plan (1) Pneumonia: (2) COPD exacerbation: PLAN: Plan #Left lower lobe pneumonia * on IV cefriaxone and azithromycin * blood cultures grew yeast like organism and sputum culture growing gram negative ods * breathing treatment with bronchodilators * titrate oyxgen to maintain sats >90% * ID on board. 2D echo ordered o/a of blood culture results and patient started on micafungin per ID. * * #Fungemia: as above. 2D echo ordered and patient started n IV micafungin. #Acute COPD exacerbation * breathing treatment with bronchodilators * on IV solumedrol * titrate oxygen to maintain sats >905 * #Hyponatremia * sodium is slightly up to 133. Will monitor * #Chronic respiratory failure due to COPD exacerbation * on 2L of oxygen chronically. * breathing treatment with bronchodilators * DVT prophylaxis:lovenox Charges/Coding Visit Charges Inpatient E&M: 35080 Subs Hosp L2
--- NOTE | 2023-09-17 15:11 | PCM.PN.ID ---
Physical Exam Narrative Feeling ok, still cough and dyspnea, poor appetite. Vision is blurry in both eyes. No floaters, no fever. Const alert and no apparent distress Resp Auscultation: wheezes and diminished lung sounds Cardio regular rate and regular rhythm GI soft to palpation, non-tender and non-distended Skin no rashes or lesions noted ID ID: Route of nutrition/ use of supplements: [] Nutritional Intake: [] IV Site: [] Chavez Catheter: [] Assessment & Plan Assessment/Plan (1) Pneumonia: PLAN: UAg neg. On azithro/ceftriaxone. New yeast like (+) Bcx. Will order TTE, micafungin, repeat bcx. Will follow (2) COPD exacerbation:
[2023-09-17] MEDS: Micafungin Sodium 100 MG in Dextrose 5%-Water (100mL Bag) 100 ML IV (16:03)
[2023-09-17] MEDS: 0.9% Normal Saline (250mL Bag) 250 ML 15 ML IV (20:52)
[2023-09-17] MEDS: Ceftriaxone 1 GM/50 ML BAG IV (20:54)
[2023-09-17] MEDS: Mag Hydrox/Al Hydrox/Simeth 30 ML UDC PO (21:13)
[2023-09-18] VITALS (11 sets, daily range): BP systolic 129–156; BP diastolic 66–76; PULSE 70–98; RESP 18–22; TEMP 36.5–36.7; O2SAT 93–100; BMI 17.6
[2023-09-18] MEDS: HYDROcodone Bitartrate/Apap 5/325 Tablet PO ×4 (00:58→20:27)
[2023-09-18] MEDS: Ipratropium/Albuterol Sulfate 3 ML AMPUL.NEB INHALATION ×2 (07:42→19:43)
[2023-09-18] MEDS: Enoxaparin 30 MG/0.3 ML Syringe SC (08:31)
[2023-09-18] MEDS: Fluticasone 0.05% 1 SPRAY NASAL.SRY NASAL ×2 (08:31→21:38)
[2023-09-18] MEDS: Ensure Plus High Protein 120 ML LIQUID PO ×3 (08:31→21:39)
[2023-09-18] MEDS: Famotidine 20 MG Tablet PO (08:32)
[2023-09-18] MEDS: Loratadine 10 MG Tablet PO (08:35)
[2023-09-18 09:47] LABS: Absolute Lymphocyte Count 0.32 X10^3/uL (0.83-4.51); Absolute Neutrophil Count 6.6 X10^3/uL (2.0-7.7); Basophil# 0.01 X10^3/uL; Basophil% 0.1 % (0-1); Hematocrit 36.7 % (37-47); Hemoglobin 11.5 g/dL (12.0-15.0); Lymphocyte # 0.32 X10^3/ul (0.83-4.51); Lymphocyte % 4.5 % (19-41); Mean Corp Hgb Conc 31.3 g/dL (32-36); Mean Corpuscular Hgb 29.6 pg (27.0-32.0); Mean Corpuscular Volume 94.6 fL (81-99); Mean Platelet Vol. 8.9 fl (6.2-12.0); Monocyte# 0.12 X10^3/uL; Monocyte% 1.7 % (0-10); NRBC Flagged by Analyzer 0 % (0-5); Neutrophil # 6.59 X10^3/uL (2.7-7.7); Neutrophil % 93.3 % (47-70); POSITIVE DIFFERENTIAL YES; Platelet Count 351 K/mm3 (150-450); RBC Distribution Width CV 12.6 % (11.6-14.6); RBC Distribution Width SD 43.4 fl (35.1-43.9); Red Blood Count 3.88 M/mm3 (4.2-5.4); White Blood Count 7.1 K/mm3 (4.4-11.0)
[2023-09-18 10:02] LABS: Anion Gap 7 (5-15); BUN 17 mg/dL (7-18); BUN/Creat Ratio 29.9 RATIO (10-20); Calcium,Total 8.2 mg/dL (8.5-10.1); Chloride 92 mmol/L (98-107); Creatinine, Serum 0.57 mg/dL (0.55-1.02); EST Glomerular Filtration Rate 113 mL/min (>60); Est Glom Filt Rate - Afr Amer 137 mL/min (>60); Estimated Creatinine Clearance 47.55 ml/min; Glucose 300 mg/dL (74-106); Sodium Level 133 mmol/L (136-145)
[2023-09-18] MEDS: Micafungin Sodium 100 MG in Dextrose 5%-Water (100mL Bag) 100 ML IV (10:07)
[2023-09-18] MEDS: Metoprolol(XL)Succ 25 MG Tablet PO (10:08)
[2023-09-18] MEDS: Mag Hydrox/Al Hydrox/Simeth 30 ML UDC PO (11:30)
--- NOTE | 2023-09-18 11:35 | PN_ITS ---
Subjective Subjective Patient seen and examined. Her daughter was by her bedside. She complained of severe epigastric and retrosternal pain especially with eating. This is made it difficult for her to eat. She says she is lost about 20 pounds over the last 2 months. This was an unintentional weight loss. She is currently on IV pedro afungin and repeat blood cultures are pending. Objective Data Objective Data Vital Signs: Vital Signs Temp Pulse Resp BP Pulse Ox O2 Del Method O2 Flow Rate 98.0 F 98 20 H 135/67 H 93 Nasal Cannula 2 09/18/23 11:00 09/18/23 11:00 09/18/23 11:00 09/18/23 11:00 09/18/23 11:00 09/18/23 11:00 09/18/23 11:00 FiO2 2 09/15/23 05:31 Oxygen Flow Rate (L/min) [ 3 AMBULATING with Oxygen #2] Oxygen Flow Rate (L/min) [ 2 AMBULATING with Oxygen #1] Oxygen Flow Rate (L/min) [At 2 REST with Oxygen] Oxygen Flow Rate (L/min) 2 Oxygen Delivery Method Nasal Cannula Weight: 96 lb Body Mass Index (BMI) 17.6 Intake & Output: Intake and Output for Last 24 Hours 09/16/23 09/17/23 09/18/23 23:59 23:59 23:59 Intake Total 1755.00 / 1755.00 3465 / 3465 200 / 200 Balance 1755.00 / 1755.00 3465 / 3465 200 / 200 Medical Nutrition Assessment Dietitian: Malnutrition Criteria Met Start: 09/15/23 12:38 Freq: Status: Active Protocol: Document 09/15/23 12:38 (Rec: 09/15/23 12:38 [id number]) Nutrition Malnutrition Evidence of Malnutrition Exists Yes Malnutrition (severe): Chronic Evidenced By Suboptimal Energy Intake ( Severe),Weight Loss (Severe), Physical Changes (Severe) Clinical Problem Chronic Disease or Condition Related Malnutrition Etiology severe, chronic malnutrition related to inadequate energy intake w/ increased energy needs d/t COPD Signs/Symptoms as evidenced by unintentional 15.6#/15% wt loss x 2 months, estimated PO intake meeting < 75% of estimated energy needs x 2 months, severe muscle wasting/fat loss evident per physical exam in orbital, clavicle, acromion, and temporal areas Status Active Problem Recommendation Dietitian Recommendations/Changes will adjust diet to regular, ensure plus high protein 120mL 4x/day w/ medpass given evidence of malnutrition Lab / Micro Data 09/18/23 09:35 09/18/23 09:35 Labs: Laboratory Results - last 24 hr 09/18/23 09:35: WBC 7.1, RBC 3.88 L, Hgb 11.5 L, Hct 36.7 L, MCV 94.6, MCH 29.6, MCHC 31.3 L, RDW Std Deviation 43.4, RDW Coeff of Stormy 12.6, Plt Count 351, MPV 8.9, Immature Gran % (Auto) 0.400, Neut % (Auto) 93.3 H, Lymph % (Auto) 4.5 L, [place] % (Auto) 1.7, Eos % (Auto) 0.0, Baso % (Auto) 0.1, Absolute Neuts (auto) 6.6, Absolute Lymphs (auto) 0.32 L, Nucleated RBC % 0, Sodium 133 L, Potassium 4.0, Chloride 92 L, Carbon Dioxide 34.0 H, Anion Gap 7, BUN 17, Creatinine 0.57, Estim Creat Clear Calc 47.55, Est GFR (MDRD) Af Amer 137, Est GFR (MDRD) Non-Af 113, BUN/Creatinine Ratio 29.9 H, Glucose 300 H, Calcium 8.2 L Micro: Microbiology 09/14/23 22:24 Blood Culture (Wb) - Anticubital Right Blood Culture - Preli minary Yeast Like Organism 09/15/23 22:00 Sputum, Expectorated/Coughed Gram Stain - Final 09/15/23 22:00 Sputum, Expectorated/Coughed Respiratory Culture - Prelimin vinicio Pseudomonas aeruginosa 09/14/23 22:00 Blood Culture (Wb) - Right Hand Blood Culture - Preliminary No growth in 48 hours. 09/15/23 00:07 Mucosa - Nasopharyngeal Respiratory Panel (PCR) - Final 09/14/23 21:26 Urine, Clean Catch Legionella Antigen - Final 09/14/23 21:26 Urine, Clean Catch Streptococcus pneumoniae Antigen (M - Final 09/14/23 20:00 Mucosa - Nose SARS-CoV-2, Influenza & RSV (PCR) - Final Physical Exam Const alert, oriented x3 and no apparent distress Constitutional Narrative: frail General Appearance: cooperative HEENT normocephalic, head/scalp atraumatic, moist oral mucous membranes and oropharynx normal Eyes PERRL and EOMs intact bilaterally Neck no lymphadenopathy and supple Lymph Lymphatic: no lymphadenopathy noted and no lymphedema noted Resp Resp Narrative: diminished breath sounds bibasally, no wheezes or crackles. On 2L of oxygen. Cardio regular rate, regular rhythm, S1 normal heart sound, S2 normal heart sound and no murmurs GI normal to inspection, nondistended, normoactive bowel sounds, soft to palpation and non-tender Extremity normal capillary refill, no clubbing, cyanosis or edema and no calf tenderness General Extremity: no tenderness to palpation of joints or extremities Skin General Skin Exam: no breakdown Neuro CN's II-XII intact bilaterally, no focal motor deficits, no sensory deficits noted and deep tendon reflexes 2+ bilaterally Motor Exam: strength 5/5 throughout and general weakness Psych thought process normal and cooperative Appearance: appropriate Assessment & Plan Assessment/Plan (1) Pneumonia: (2) COPD exacerbation: PLAN: Plan #Left lower lobe pneumonia * on IV cefriaxone and azithromycin * blood cultures grew yeast like organism and sputum culture growing gram negative ods * breathing treatment with bronchodilators * titrate oyxgen to maintain sats >90% * ID on board. 2D echo ordered o/a of blood culture results and patient started on micafungin per ID. * * #Fungemia: as above. 2D echo done; read pending. patient started n IV micafungin. #Odynophagia with unexplained weight loss * patient says she has lost about 20 pounds over the last 2 months. * she has associated pain and difficulty with swallowing which has been worsening. * in light of her unexplained fungemia, i will get GI consult for possible EGD * she says she had EGD and colonoscopy one year ago which wre normal * #Acute COPD exacerbation * breathing treatment with bronchodilators * on IV solumedrol * titrate oxygen to maintain sats >905 * will switch to PO prednisone * #Hyponatremia * sodium is slightly up to 133. Will monitor * #Chronic respiratory failure due to COPD exacerbation * on 2L of oxygen chronically. * breathing treatment with bronchodilators * DVT prophylaxis:lovenox Charges/Coding Visit Charges Inpatient E&M: 81906 Subs Hosp L2
[2023-09-18] MEDS: diazePAM 2 MG Tablet PO (14:13)
[2023-09-18] MEDS: Ceftriaxone 1 GM/50 ML BAG IV (21:39)
[2023-09-18] MEDS: Azithromycin 500 MG in Dextrose 5%-Water (250mL Bag) 250 ML 250 MG IV (22:24)
[2023-09-19] VITALS (11 sets, daily range): BP systolic 121–152; BP diastolic 62–88; PULSE 68–101; RESP 17–20; TEMP 36.4–36.8; O2SAT 93–99; BMI 17.8
[2023-09-19] MEDS: HYDROcodone Bitartrate/Apap 5/325 Tablet PO ×4 (02:32→19:54)
[2023-09-19] MEDS: 0.9% Saline Lock 10 ML Syringe IV ×2 (02:33→21:06)
[2023-09-19] MEDS: Docusate Sodium 100 MG Capsule PO (07:55)
[2023-09-19] MEDS: Famotidine 20 MG Tablet PO (07:55)
[2023-09-19] MEDS: Metoprolol(XL)Succ 25 MG Tablet PO (07:56)
[2023-09-19] MEDS: Ensure Plus High Protein 120 ML LIQUID PO ×4 (07:57→22:22)
[2023-09-19] MEDS: Enoxaparin 30 MG/0.3 ML Syringe SC (07:58)
[2023-09-19] MEDS: Fluticasone 0.05% 1 SPRAY NASAL.SRY NASAL ×2 (07:58→22:19)
[2023-09-19] MEDS: predniSONE 20 MG Tablet 40 MG PO (08:09)
[2023-09-19 09:12] LABS: Absolute Lymphocyte Count 1.77 X10^3/uL (0.83-4.51); Basophil# 0.01 X10^3/uL; Basophil% 0.1 % (0-1); Eosinophil# 0.03 X10^3/uL; Eosinophils% 0.4 % (0-5); Hematocrit 40.6 % (37-47); Hemoglobin 12.7 g/dL (12.0-15.0); Lymphocyte # 1.77 X10^3/ul (0.83-4.51); Lymphocyte % 20.8 % (19-41); Mean Corp Hgb Conc 31.3 g/dL (32-36); Mean Corpuscular Hgb 30.2 pg (27.0-32.0); Mean Corpuscular Volume 96.4 fL (81-99); Mean Platelet Vol. 8.7 fl (6.2-12.0); Monocyte# 0.65 X10^3/uL; Monocyte% 7.6 % (0-10); NRBC Flagged by Analyzer 0 % (0-5); Neutrophil # 6.02 X10^3/uL (2.7-7.7); Neutrophil % 70.7 % (47-70); Platelet Count 381 K/mm3 (150-450); RBC Distribution Width CV 12.8 % (11.6-14.6); RBC Distribution Width SD 45.8 fl (35.1-43.9); Red Blood Count 4.21 M/mm3 (4.2-5.4); White Blood Count 8.5 K/mm3 (4.4-11.0)
[2023-09-19 09:27] LABS: Anion Gap 4 (5-15); BUN 20 mg/dL (7-18); BUN/Creat Ratio 47.3 RATIO (10-20); Calcium,Total 8.2 mg/dL (8.5-10.1); Chloride 90 mmol/L (98-107); Creatinine, Serum 0.42 mg/dL (0.55-1.02); EST Glomerular Filtration Rate 159 mL/min (>60); Est Glom Filt Rate - Afr Amer 193 mL/min (>60); Estimated Creatinine Clearance 47.94 ml/min; Glucose 111 mg/dL (74-106); Potassium 3.8 mmol/L (3.5-5.1); Sodium Level 134 mmol/L (136-145)
[2023-09-19] MEDS: Ipratropium/Albuterol Sulfate 3 ML AMPUL.NEB INHALATION ×3 (10:20→19:59)
--- NOTE | 2023-09-19 11:04 | NURSING ---
This RN contacted [employer] to inform them of the need for midline and they will call back with a time that someone will be here to insert that.
--- NOTE | 2023-09-19 11:08 | PN_ITS ---
Subjective Subjective Patient seen and examined. Her was by her bedside. She still complaining of pain with swallowing. She denies any coughing, fever or chills, shortness of breath or any other symptoms. Review of systems otherwise negative. Objective Data Objective Data Vital Signs: Vital Signs Temp Pulse Resp BP Pulse Ox O2 Del Method O2 Flow Rate 97.5 F L 81 18 121/84 H 96 Nasal Cannula 2 09/19/23 07:53 09/19/23 10:51 09/19/23 10:51 09/19/23 07:53 09/19/23 09:22 09/19/23 09:22 09/19/23 10:34 FiO2 2 09/15/23 05:31 Oxygen Flow Rate (L/min) [ 3 AMBULATING with Oxygen #2] Oxygen Flow Rate (L/min) [ 2 AMBULATING with Oxygen #1] Oxygen Flow Rate (L/min) [At 2 REST with Oxygen] Oxygen Flow Rate (L/min) 2 Oxygen Delivery Method Nasal Cannula Weight: 96 lb 12.527 oz Body Mass Index (BMI) 17.8 Intake & Output: Intake and Output for Last 24 Hours 09/17/23 09/18/23 09/19/23 23:59 23:59 23:59 Intake Total 3465 / 3465 1105 / 1105 905 / 905 Balance 3465 / 3465 1105 / 1105 905 / 905 Medical Nutrition Assessment Dietitian: Malnutrition Criteria Met Start: 09/15/23 12:38 Freq: Status: Active Protocol: Document 09/15/23 12:38 (Rec: 09/15/23 12:38 [id number]) Nutrition Malnutrition Evidence of Malnutrition Exists Yes Malnutrition (severe): Chronic Evidenced By Suboptimal Energy Intake ( Severe),Weight Loss (Severe), Physical Changes (Severe) Clinical Problem Chronic Disease or Condition Related Malnutrition Etiology severe, chronic malnutrition related to inadequate energy intake w/ increased energy needs d/t COPD Signs/Symptoms as evidenced by unintentional 15.6#/15% wt loss x 2 months, estimated PO intake meeting < 75% of estimated energy needs x 2 months, severe muscle wasting/fat loss evident per physical exam in orbital, clavicle, acromion, and temporal areas Status Active Problem Recommendation Dietitian Recommendations/Changes will adjust diet to regular, ensure plus high protein 120mL 4x/day w/ medpass given evidence of malnutrition Lab / Micro Data 09/19/23 08:58 09/19/23 08:58 Labs: Laboratory Results - last 24 hr 09/19/23 08:58: WBC 8.5, RBC 4.21, Hgb 12.7, Hct 40.6, MCV 96.4, MCH 30.2, MCHC 31.3 L, RDW Std Deviation 45.8 H, RDW Coeff of Stormy 12.8, Plt Count 381, MPV 8.7, Immature Gran % (Auto) 0.400, Neut % (Auto) 70.7 H, Lymph % (Auto) 20.8, [place] % (Auto) 7.6, Eos % (Auto) 0.4, Baso % (Auto) 0.1, Absolute Neuts (auto) 6.0, Absolute Lymphs (auto) 1.77, Nucleated RBC % 0, Sodium 134 L, Potassium 3.8, Chloride 90 L, Carbon Dioxide 40.0 H, Anion Gap 4 L, BUN 20 H, Creatinine 0.42 L , Estim Creat Clear Calc 47.94, Est GFR (MDRD) Af Amer 193, Est GFR (MDRD) Non- Af 159, BUN/Creatinine Ratio 47.3 H, Glucose 111 H, Calcium 8.2 L Micro: Microbiology 09/14/23 22:24 Blood Culture (Wb) - Anticubital Right Blood Culture - Preliminary Yeast Like Organism 09/15/23 22:00 Sputum, Expectorated/Coughed Gram Stain - Final 09/15/23 22:00 Sputum, Expectorated/Coughed Respiratory Culture - Preliminary Pseudomonas aeruginosa 09/14/23 22:00 Blood Culture (Wb) - Right Hand Blood Culture - Preliminary No growth in 48 hours. 09/15/23 00:07 Mucosa - Nasopharyngeal Respiratory Panel (PCR) - Final 09/14/23 21:26 Urine, Clean Catch Legionella Antigen - Final 09/14/23 21:26 Urine, Clean Catch Streptococcus pneumoniae Antigen (M - Final 09/14/23 20:00 Mucosa - Nose SARS-CoV-2, Influenza & RSV (PCR) - Final Radiography Diagnostic Testing: Radiology Impression Echocardiogram 09/17/23 13:43 Interpretation Summary The estimated ejection fraction is 55-60 %. No previous study to compare Ordering Physician: Eric Rios Performed By: Mitchell Matthews RCS Physical Exam Const alert, oriented x3 and no apparent distress Constitutional Narrative: frail General Appearance: cooperative HEENT normocephalic, head/scalp atraumatic, moist oral mucous membranes and oropharynx normal Eyes PERRL and EOMs intact bilaterally Neck no lymphadenopathy and supple Lymph Lymphatic: no lymphadenopathy noted and no lymphedema noted Resp Resp Narrative: diminished breath sounds bibasally, no wheezes or crackles. On 2L of oxygen. Cardio regular rate, regular rhythm, S1 normal heart sound, S2 normal heart sound and no murmurs GI normal to inspection, nondistended, normoactive bowel sounds, soft to palpation and non-tender Extremity normal capillary refill, no clubbing, cyanosis or edema and no calf tenderness General Extremity: no tenderness to palpation of joints or extremities Skin General Skin Exam: no breakdown Neuro CN's II-XII intact bilaterally, no focal motor deficits, no sensory deficits noted and deep tendon reflexes 2+ bilaterally Motor Exam: strength 5/5 throughout and general weakness Psych thought process normal and cooperative Appearance: appropriate Assessment & Plan Assessment/Plan (1) Pneumonia: (2) COPD exacerbation: PLAN: Plan #Left lower lobe pneumonia * on IV cefriaxone and azithromycin * blood cultures grew yeast like organism and sputum culture growing gram negative ods * breathing treatment with bronchodilators * titrate oyxgen to maintain sats >90% * ID on board. 2D echo ordered o/a of blood culture results and patient started on micafungin per ID. 2D echo showed EF of 55-60% with no evidence of v egetation. * * #Fungemia: as above. 2D echo done; read as above. patient on IV micafungin. #Odynophagia with unexplained weight loss * patient says she has lost about 20 pounds over the last 2 months. * she has associated pain and difficulty with swallowing which has been worsening. * in light of her unexplained fungemia, GI consulted. Await rec's * she says she had EGD and colonoscopy one year ago which were normal * #Acute COPD exacerbation * breathing treatment with bronchodilators * on IV solumedrol * titrate oxygen to maintain sats >905 * now on PO prednisone * #Hyponatremia * sodium is slightly up to 134. Will monitor * #Chronic respiratory failure due to COPD exacerbation * on 2L of oxygen chronically. * breathing treatment with bronchodilators * DVT prophylaxis:lovenox Charges/Coding Visit Charges Inpatient E&M: 01109 Subs Hosp L2
[2023-09-19] MEDS: Micafungin Sodium 100 MG in Dextrose 5%-Water (100mL Bag) 100 ML IV (11:29)
--- NOTE | 2023-09-19 12:18 | CON.PCM.GI_ITS ---
HPI Consult Data Date of Consult: 09/20/23 HPI Narrative Reason for Consultation: Dysphagia and weight loss HPI Narrative: LACEY NICOLE, is a 68 F who presents with fatigue and shortness of breath. She has a past medical history of Anxiety and Depression/Chronic insomnia, Chronic COPD/Asthma w/ Chronic Hypoxic Respiratory Failure w/ Allergic Rhinitis, Tobacco use, HTN, HLD, GERD, Chart reported history of Diabetes mellitus type II. She presented to the [facility] ED on 09/14/23 with history of generalized fatigue, malaise as well as weakness which has been worsening over the last several days reporting decreased energy to the point where it is difficult to even get across the room with increased dyspnea, occasional wheezing as well as cough with no specific fevers but poor oral intake as well prompting eventual ED evaluation. Her who is present denies any recent illness in himself or close contacts to his spouse. She does report significantly decreased appetite. Workup in the ED included T97.4, heart rate 108, BP 150/67, respiratory rate 18, 98% on 2 L nasal cannula, CBC with WBC 11.2, hemoglobin 12.9, platelet 322 with left shift, BMP with sodium 131, chloride 87, carbon oxide 42, BUN/creatinine 14/0.41, glucose 111, troponin 18, chest x-ray w/ interstitial infiltrate left lower lobe possibly pneumonia, rapid SARS COVID/influenza/RSV PCR negative. In the ED patient ministered maintenance IV fluids, IV solumedrol 80 mg x 1, 500 mg IV azithromycin, 2 gm IV Rocephin and albuterol therapy. She was diagnosed with COPD exacerbation in the setting of community-acquired pneumonia. The blood cultures grew out fungus. A RAFAELA was ordered and she was placed on micafungin and azithromycin was continued. I was consulted because she was having worsening esophageal dysphagia along with weight loss. [facility] Medical History Anxiety and depression Asthma Chronic hypoxemic respiratory failure COPD (chronic obstructive pulmonary disease) COVID-19 Emphysema lung GERD (gastroesophageal reflux disease) History of diabetes mellitus History of essential hypertension Insomnia Kidney stones Mediastinal lymphadenopathy Osteoporosis Smoker Tobacco dependence due to cigarettes Home Medications hydrocodone-acetaminophen 5-325mg 5mg-325mg 1 ea PO PRN PRN Pain 09/30/17 [History Last Taken 07/08/23] cholecalciferol (vitamin D3) 50 mcg (2,000 unit) tablet 2,000 unit PO DAILY supplement 11/18/18 [History Last Taken 07/08/23] famotidine 20 mg tablet 20 mg PO BID indigestion 12/04/21 [History Last Taken 07/08/23] tizanidine 4 mg capsule 4 mg PO BID PRN MUSCLE SPASMS 12/04/21 [History Last Taken 02/15/22 22:00] metoprolol succinate 25 mg tablet,extended release 24 hr 25 mg PO DAILY heart rate 02/05/22 [History Last Taken 07/08/23] loratadine 10 mg capsule 10 mg PO DAILY PRN Allergies #90 caps 06/18/22 [Rx Last Taken 07/08/23] fluticasone propionate 50 mcg/actuation nasal spray,suspension (Flonase Allergy Relief) 1 spray intranasal BID allergy #15.8 mL 04/23/23 [Rx Last Taken 07/08/23] ipratropium 20 mcg-albuterol 100 mcg/actuation mist for inhalation (Combivent Respimat) 1 puff inhalation Q6H see dx #4 grams 04/23/23 [Rx Last Taken Unknown] mometasone-formoterol HFA 200 mcg-5 mcg/actuation aerosol inhaler (Dulera) 2 puff inhalation BID copd #13 grams 06/14/23 [Rx Last Taken 07/08/23] alendronate 70 mg tablet 70 mg PO .qtuesday osteo 07/08/23 [History Last Taken 07/06/23] albuterol sulfate 90 mcg/actuation aerosol inhaler (Ventolin HFA) 2 puff inhalation Q4H PRN shortness of breath or wheezing #8.5 grams 07/12/23 [Rx Last Taken Unknown] ipratropium 0.5 mg-albuterol 3 mg (2.5 mg base)/3 mL nebulization soln 3 ml inhalation Q4H PRN PRN SOB &/OR WHEEZING #180 mL 08/06/23 [Rx Last Taken Unknown] albuterol sulfate 2.5 mg/3 mL (0.083 %) solution for nebulization 2.5 mg (3 mL) inhalation Q2H PRN PRN Dyspnea, wheezing #180 vials 09/08/23 [Rx Last Taken Unknown] diazepam 2 mg tablet 2 mg PO Q6H PRN PRN anxiety 09/14/23 [History Last Taken Unknown] docusate sodium 100 mg capsule (Colace) 100 mg PO DAILY 09/14/23 [History Last Taken Unknown] Allergy/AdvReac Type Severity Reaction Status Date / Time budesonide AdvReac Severe Shortness Verified 09/14/23 18:22 [From Breztri Aerosphere] of breath formoterol AdvReac Severe Shortness Verified 09/14/23 18:22 [From Breztri Aerosphere] of breath glycopyrrolate AdvReac Severe Shortness Verified 09/14/23 18:22 [From Breztri Aerosphere] of breath aclidinium AdvReac Other Verified 09/14/23 18:22 [From Tudorza Pressair] doxycycline AdvReac Other Verified 09/14/23 18:22 gabapentin AdvReac Other Verified 09/14/23 18:22 ipratropium AdvReac Other Verified 09/14/23 18:22 levofloxacin [From Levaquin] AdvReac Other Verified 09/14/23 18:22 methylprednisolone AdvReac Other Verified 09/14/23 18:22 sertraline [From Zoloft] AdvReac Upset Verified 09/14/23 18:22 Stomach sulfamethoxazole AdvReac Other Verified 09/14/23 18:22 [From Bactrim] trimethoprim [From Bactrim] AdvReac Other Verified 09/14/23 18:22 umeclidinium AdvReac Other Verified 09/14/23 18:22 [From Incruse Ellipta] Family History Grandmother Cancer Lung Brother Diabetes Hypertension Father Hypertension Embolism Sister Hypertension Diabetes Surgical History History of bladder suspension procedure History of cholecystectomy History of tubal ligation Social History (Updated 09/15/23 @ 04:[address] Holly Moses MD) household members: spouse and family Smoking Status: Current every day smoker tobacco type: cigarettes Smoking packs per day: 0.25 Smoking cigarettes per day: 5.0 Tobacco: How many years used: 47 second hand exposure: Yes alcohol intake: never substance use type: does not use caffeine: Yes Type: coffee what type of physical activity do you participate in: none ROS ROS Narrative Admission Review of Systems: CONSTITUTIONAL: No weight loss, fever, chills, + weakness or fatigue. HEENT: Eyes: No visual loss, blurred vision, double vision or yellow sclerae. Ears, Nose, Throat: No hearing loss, sneezing, congestion, runny nose or sore throat. SKIN: No rash or itching, lesions, wounds. CARDIOVASCULAR: No chest pain, chest pressure or chest discomfort, palpitations, edema, orthopnea, syncopal events. RESPIRATORY: + Dyspnea, cough with mild sputum, wheezing. No hemoptysis. GASTROINTESTINAL: + anorexia, nausea without vomiting. No diarrhea, abdominal pain, melena, BRBPR. GENITOURINARY: No dysuria, frequency, urgency or retention. NEUROLOGICAL: No headache, dizziness, syncope, paralysis, ataxia, numbness or tingling in the extremities, focal weakness, change in bowel or bladder control, seizure. MUSCULOSKELETAL:+ muscle, back pain, joint pain or stiffness. HEMATOLOGIC: + Anemia, easy bleeding/bruising. LYMPHATICS: No enlarged nodes. No history of splenectomy. PSYCHIATRIC: + History of anxiety and depression. ENDOCRINOLOGIC: No reports of sweating, cold or heat intolerance. No polyuria or polydipsia. ALLERGIES: + History of asthma. Physical Exam Const alert, oriented x3 and no apparent distress Constitutional Narrative: frail General Appearance: cooperative HEENT normocephalic, head/scalp atraumatic, moist oral mucous membranes and oropharynx normal Eyes PERRL and EOMs intact bilaterally Neck no lymphadenopathy and supple Lymph Lymphatic: no lymphadenopathy noted and no lymphedema noted Resp Resp Narrative: diminished breath sounds bibasally, no wheezes or crackles. On 2L of oxygen. Cardio regular rate, regular rhythm, S1 normal heart sound, S2 normal heart sound and no murmurs GI normal to inspection, nondistended, normoactive bowel sounds, soft to palpation and non-tender Extremity normal capillary refill, no clubbing, cyanosis or edema and no calf tenderness General Extremity: no tenderness to palpation of joints or extremities Skin General Skin Exam: no breakdown Neuro CN's II-XII intact bilaterally, no focal motor deficits, no sensory deficits noted and deep tendon reflexes 2+ bilaterally Motor Exam: strength 5/5 throughout and general weakness Psych thought process normal and cooperative Appearance: appropriate Medical Records Data Medical Nutrition Assessment Dietitian: Malnutrition Criteria Met Start: 09/15/23 12:38 Freq: Status: Active Protocol: Document 09/20/23 11:25 AG (Rec: 09/20/23 11:25 AG Desktop) Nutrition Malnutrition Evidence of Malnutrition Exists Yes Malnutrition (severe): Chronic Evidenced By Suboptimal Energy Intake ( Severe),Weight Loss (Severe), Physical Changes (Severe) Clinical Problem Chronic Disease or Condition Related Malnutrition Etiology severe, chronic malnutrition related to inadequate energy intake w/ increased energy needs d/t COPD Signs/Symptoms as evidenced by unintentional 15.6#/15% wt loss x 2 months, estimated PO intake meeting < 75% of estimated energy needs x 2 months, severe muscle wasting/fat loss evident per physical exam in orbital, clavicle, acromion, and temporal areas Status Active Problem Recommendation Dietitian Recommendations/Changes when medically appropriate, recommend regular diet, ensure plus high protein 120mL 4x/ day w/ medpass given evidence of malnutrition; if symptoms to do not improve w/ EGD/ dilation, recommend MBA INTERN evaluation Lab / Micro Data 09/20/23 06:34 09/20/23 05:45 Labs: Laboratory Results - last 24 hr 09/20/23 05:45: WBC Cancelled, Corrected WBC Cancelled, RBC Cancelled, Hgb Cancelled, Hct Cancelled, MCV Cancelled, MCH Cancelled, MCHC Cancelled, RDW Std Deviation Cancelled, RDW Coeff of Stormy Cancelled, Plt Count Cancelled, MPV Cancelled, Immature Gran % (Auto) Cancelled, Neut % (Auto) Cancelled, Lymph % (Auto) Cancelled, [place] % (Auto) Cancelled, Eos % (Auto) Cancelled, Baso % (Auto) Cancelled, Absolute Neuts (auto) Cancelled, Absolute Lymphs (auto) Cancelled, Total Counted Cancelled, Neutrophils % (Manual) Cancelled, Band Neutrophils % Cancelled, Lymphocytes % (Manual) Cancelled, Monocytes % (Manual) Cancelled, Eosinophils % (Manual) Cancelled, Basophils % (Manual) Cancelled, Metamyelocytes % Cancelled, Myelocytes % Cancelled, Promyelocytes % Cancelled, Blast Cells % Cancelled, Plasma Cell % (Manual) Cancelled, Other Cells % Cancelled, Nucleated RBC % Cancelled, Nucleated RBCs/100 WBC Cancelled, Differential Comment Cancelled, Diff Path Review Cancelled, Hypersegmented Neuts Cancelled, Atypical Lymphocytes Cancelled, Reactive Lymphocytes Cancelled, Smudge Cells Cancelled, Toxic Granulation Cancelled, Toxic Vacuolation Cancelled, Dohle Bodies Cancelled, Nikolas Rods Cancelled, Platelet Estimate Cancelled, Plt Morphology Comment Cancelled, RBC Morphology Cancelled 09/20/23 05:45: RBC Morphology Cancelled, Polychromasia Cancelled, Hypochromasia Cancelled, Basophilic Stippling Cancelled, Anisocytosis Cancelled, Microcytosis Cancelled, Macrocytosis Cancelled, Spherocytes Cancelled, Sickle Cells Cancelled, Target Cells Cancelled, Tear Drop Cells Cancelled, Ovalocytes Cancelled, Stomatocytes Cancelled, [place] Bodies Cancelled, [place] Cells Ca ncelled, Bite Cells Cancelled, Crenated Cell Cancelled, Acanthocytes (Spur) Cancelled, Rouleaux Cancelled, Schistocytes Cancelled, Sodium 133 L, Potassium 4.5, Chloride 93 L, Carbon Dioxide 38.0 H, Anion Gap 2 L, BUN 21 H, Creatinine 0.28 L, Estim Creat Clear Calc 47.94, Est GFR (MDRD) Af Amer 305, Est GFR (MDRD) Non-Af 252, BUN/Creatinine Ratio 73.9 H, Glucose 84, Calcium 8.0 L 09/20/23 06:34: WBC 8.9, RBC 3.71 L, Hgb 11.2 L, Hct 35.8 L, MCV 96.5, MCH 30.2, MCHC 31.3 L, RDW Std Deviation 45.4 H, RDW Coeff of Stormy 12.8, Plt Count 291, MPV 8.6, Immature Gran % (Auto) 0.600, Neut % (Auto) 67.8, Lymph % (Auto) 21.4, [place] % (Auto) 9.4, Eos % (Auto) 0.7, Baso % (Auto) 0.1, Absolute Neuts (auto) 6.0, Absolute Lymphs (auto) 1.91, Nucleated RBC % 0 Micro: Microbiology 09/14/23 22:00 Blood Culture (Wb) - Right Hand Blood Culture - Final No growth in 5 days. 09/15/23 22:00 Sputum, Expectorated/Coughed Gram Stain - Final 09/15/23 22:00 Sputum, Expectorated/Coughed Respiratory Culture - Final Pseudomonas aeruginosa Assessment & Plan Assessment/Plan (1) Pneumonia: (2) COPD exacerbation: PLAN: Plan Left lower lobe pneumonia * on IV cefriaxone and azithromycin * blood cultures grew yeast like organism and sputum culture growing gram nega tive rods * * * Fungemia: as above. 2D echo done. .2D echo showed EF of 55-60% with no evidence of vegetation.patient on IV micafungin. Odynophagia with unexplained weight loss * patient says she has lost about 20 pounds over the last 2 months. * she has associated pain and difficulty with swallowing which has been worsening. * in light of her unexplained fungemia, we will perform an upper endoscopy to evaluate upper GI tract. She was explained alternatives, risk, benefits including not withstanding bleeding, infection, sepsis, perforation, need for more discharge and . She have an ASA of 3. Charges/Coding Visit Charges Inpatient E&M: 86485 Init Hosp L3
[2023-09-19] MEDS: diazePAM 2 MG Tablet PO (14:10)
--- NOTE | 2023-09-19 14:42 | NURSING ---
RN here to perform midline IV.
[2023-09-19] MEDS: Ceftriaxone 1 GM/50 ML BAG IV (21:06)
[2023-09-19] MEDS: Azithromycin 500 MG in Dextrose 5%-Water (250mL Bag) 250 ML 250 MG IV (22:17)
[2023-09-19] MEDS: Menthol/Lanolin/Calamine/Znox 113 GM Tube 1 APPLIC TOPICAL (22:18)
--- NOTE | 2023-09-19 22:30 | NURSING ---
pt states she had a tubal ligation after her last child was born.
[2023-09-20] VITALS (17 sets, daily range): BP systolic 112–150; BP diastolic 47–71; PULSE 70–103; RESP 16–20; TEMP 36.3–37.3; O2SAT 94–100; BMI 17.8; BMI 17.6
[2023-09-20] MEDS: HYDROcodone Bitartrate/Apap 5/325 Tablet PO ×4 (02:16→21:12)
[2023-09-20 06:32] LABS: Anion Gap 2 (5-15); BUN 21 mg/dL (7-18); BUN/Creat Ratio 73.9 RATIO (10-20); Chloride 93 mmol/L (98-107); Creatinine, Serum 0.28 mg/dL (0.55-1.02); EST Glomerular Filtration Rate 252 mL/min (>60); Est Glom Filt Rate - Afr Amer 305 mL/min (>60); Estimated Creatinine Clearance 47.94 ml/min; Glucose 84 mg/dL (74-106); Potassium 4.5 mmol/L (3.5-5.1); Sodium Level 133 mmol/L (136-145)
[2023-09-20 06:46] LABS: Absolute Lymphocyte Count 1.91 X10^3/uL (0.83-4.51); Basophil# 0.01 X10^3/uL; Basophil% 0.1 % (0-1); Eosinophil# 0.06 X10^3/uL; Eosinophils% 0.7 % (0-5); Hematocrit 35.8 % (37-47); Hemoglobin 11.2 g/dL (12.0-15.0); Lymphocyte # 1.91 X10^3/ul (0.83-4.51); Lymphocyte % 21.4 % (19-41); Mean Corp Hgb Conc 31.3 g/dL (32-36); Mean Corpuscular Hgb 30.2 pg (27.0-32.0); Mean Corpuscular Volume 96.5 fL (81-99); Mean Platelet Vol. 8.6 fl (6.2-12.0); Monocyte# 0.84 X10^3/uL; Monocyte% 9.4 % (0-10); NRBC Flagged by Analyzer 0 % (0-5); Neutrophil # 6.04 X10^3/uL (2.7-7.7); Neutrophil % 67.8 % (47-70); Platelet Count 291 K/mm3 (150-450); RBC Distribution Width CV 12.8 % (11.6-14.6); RBC Distribution Width SD 45.4 fl (35.1-43.9); Red Blood Count 3.71 M/mm3 (4.2-5.4); White Blood Count 8.9 K/mm3 (4.4-11.0)
[2023-09-20] MEDS: Ipratropium/Albuterol Sulfate 3 ML AMPUL.NEB INHALATION ×4 (07:21→19:10)
[2023-09-20] MEDS: Famotidine 20 MG Tablet PO (08:09)
[2023-09-20] MEDS: diazePAM 2 MG Tablet PO (08:09)
[2023-09-20] MEDS: Ondansetron 4 MG/2 ML Vial IV (08:09)
[2023-09-20] MEDS: Metoprolol(XL)Succ 25 MG Tablet PO (08:09)
[2023-09-20] MEDS: predniSONE 20 MG Tablet 40 MG PO (08:10)
[2023-09-20] MEDS: Fluticasone 0.05% 1 SPRAY NASAL.SRY NASAL ×2 (08:10→21:12)
[2023-09-20] MEDS: 0.9% Saline Lock 10 ML Syringe IV ×2 (08:11→21:06)
[2023-09-20] MEDS: Docusate Sodium 100 MG Capsule PO (08:11)
[2023-09-20] MEDS: Menthol/Lanolin/Calamine/Znox 113 GM Tube 1 APPLIC TOPICAL ×2 (10:34→21:12)
[2023-09-20] MEDS: Micafungin Sodium 100 MG in Dextrose 5%-Water (100mL Bag) 100 ML IV (10:34)
--- NOTE | 2023-09-20 11:43 | PCM.PN.HOSP ---
Reason for Visit Reason for Visit: Diagnoses Pneumonia, unspecified organism (09/14/23) Chronic obstructive pulmonary disease with (acute) exacerbation (09/14/23) Subjective Subjective Patient was admitted on 09/13 for worsening dyspnea on exertion with wheezing and generalized fatigue. Has known history of COPD with chronic hypoxic respiratory failure on home oxygen. Chest x-ray showed a left lower lobe pneumonia and patient's symptoms were consistent with an acute COPD exacerbation. Initiated on treatment with IV steroids, scheduled bronchodilators and IV ceftriaxone and azithromycin. Hospital course complicated by blood cultures positive for a yeastlike organism. Patient also noted that she has had worsening pain with swallowing and fairly significant weight loss over the past 2 to 3 months. Infectious disease following, currently treating with micafungin. Unclear source of fungal infection at this time. Echo showed no concerning findings. GI consulted for pain with swallowing, EGD on 09/19 showed a moderate Schatzki ring that was dilated, was otherwise benign. Patient seen at bedside this morning, present. Patient was sitting up in bedside chair fairly comfortably, no acute distress. She was moderately fatigued appearing. She continued to report pain with swallowing and reported minimal appetite this morning. She denies any fevers or chills overnight. Denies any significant cough or sputum production currently. Denies any fevers or chills. She was breathing comfortably on 2 L nasal cannula at rest, which is her home amount of oxygen. She was looking forward to having the upper scope done when I saw her this morning to help get an answer for her difficulty swallowing. She had no other acute concerns at that time. Objective Data Objective Data Vital Signs: Vital Signs Temp Pulse Resp BP Pulse Ox O2 Del Method O2 Flow Rate 97.9 F 78 18 112/47 L 97 Nasal Cannula 2 09/20/23 10:36 09/20/23 10:36 09/20/23 10:36 09/20/23 10:36 09/20/23 10:36 09/20/23 10:36 09/20/23 10:36 FiO2 2 09/15/23 05:31 Oxygen Flow Rate (L/min) [ 3 AMBULATING with Oxygen #2] Oxygen Flow Rate (L/min) [ 2 AMBULATING with Oxygen #1] Oxygen Flow Rate (L/min) [At 2 REST with Oxygen] Oxygen Flow Rate (L/min) 2 Oxygen Delivery Method Nasal Cannula Weight: 43.9 kg Body Mass Index (BMI) 17.6 Intake & Output: Intake and Output for Last 24 Hours 09/18/23 09/19/23 09/20/23 23:59 23:59 23:59 Intake Total 1105 / 1105 2114 Balance 110 / 1105 2114 Medical Nutrition Assessment Dietitian: Malnutrition Criteria Met Start: 09/15/23 12:38 Freq: Status: Active Protocol: Document 09/20/23 11:25 AG (Rec: 09/20/23 11:25 AG Desktop) Nutrition Malnutrition Evidence of Malnutrition Exists Yes Malnutrition (severe): Chronic Evidenced By Suboptimal Energy Intake ( Severe),Weight Loss (Severe), Physical Changes (Severe) Clinical Problem Chronic Disease or Condition Related Malnutrition Etiology severe, chronic malnutrition related to inadequate energy intake w/ increased energy needs d/t COPD Signs/Symptoms as evidenced by unintentional 15.6#/15% wt loss x 2 months, estimated PO intake meeting < 75% of estimated energy needs x 2 months, severe muscle wasting/fat loss evident per physical exam in orbital, clavicle, acromion, and temporal areas Status Active Problem Recommendation Dietitian Recommendations/Changes when medically appropriate, recommend regular diet, ensure plus high protein 120mL 4x/ day w/ medpass given evidence of malnutrition; if symptoms to do not improve w/ EGD/ dilation, recommend WAX CUTTER evaluation Lab / Micro Data 09/20/23 06:34 09/20/23 05:45 Labs: Laboratory Results - last 24 hr 09/20/23 05:45: WBC Cancelled, Corrected WBC Cancelled, RBC Cancelled, Hgb Cancelled, Hct Cancelled, MCV Cancelled, MCH Cancelled, MCHC Cancelled, RDW Std Deviation Cancelled, RDW Coeff of Stormy Cancelled, Plt Count Cancelled, MPV Cancelled, Immature Gran % (Auto) Cancelled, Neut % (Auto) Cancelled, Lymph % (Auto) Cancelled, [place] % (Auto) Cancelled, Eos % (Auto) Cancelled, Baso % (Auto) Cancelled, Absolute Neuts (auto) Cancelled, Absolute Lymphs (auto) Cancelled, Total Counted Cancelled, Neutrophils % (Manual) Cancelled, Band Neutrophils % Cancelled, Lymphocytes % (Manual) Cancelled, Monocytes % (Manual) Cancelled, Eosinophils % (Manual) Cancelled, Basophils % (Manual) Cancelled, Metamyelocytes % Cancelled, Myelocytes % Cancelled, Promyelocytes % Cancelled, Blast Cells % Cancelled, Plasma Cell % (Manual) Cancelled, Other Cells % Cancelled, Nucleated RBC % Cancelled, Nucleated RBCs/100 WBC Cancelled, Differential Comment Cancelled, Diff Path Review Cancelled, Hypersegmented Neuts Cancelled, Atypical Lymphocytes Cancelled, Reactive Lymphocytes Cancelled, Smudge Cells Cancelled, Toxic Granulation Cancelled, Toxic Vacuolation Cancelled, Dohle Bodies Cancelled, Nikolas Rods Cancelled, Platelet Estimate Cancelled, Plt Morphology Comment Cancelled, RBC Morphology Cancelled 09/20/23 05:45: RBC Morphology Cancelled, Polychromasia Cancelled, Hypochromasia Cancelled, Basophilic Stippling Cancelled, Anisocytosis Cancelled, Microcytosis Cancelled, Macrocytosis Cancelled, Spherocytes Cancelled, Sickle Cells Cancelled, Target Cells Cancelled, Tear Drop Cells Cancelled, Ovalocytes Cancelled, Stomatocytes Cancelled, [place] Bodies Cancelled, [place] Cells Cancelled, Bite Cells Cancelled, Crenated Cell Cancelled, Acanthocytes (Spur) Cancelled, Rouleaux Cancelled, Schistocytes Cancelled, Sodium 133 L, Potassium 4.5, Chloride 93 L, Carbon Dioxide 38.0 H, Anion Gap 2 L, BUN 21 H, Creatinine 0.28 L, Estim Creat Clear Calc 47.94, Est GFR (MDRD) Af Amer 305, Est GFR (MDRD) Non-Af 252, BUN/Creatinine Ratio 73.9 H, Glucose 84, Calcium 8.0 L 09/20/23 06:34: WBC 8.9, RBC 3.71 L, Hgb 11.2 L, Hct 35.8 L, MCV 96.5, MCH 30.2, MCHC 31.3 L, RDW Std Deviation 45.4 H, RDW Coeff of Stormy 12.8, Plt Count 291, MPV 8.6, Immature Gran % (Auto) 0.600, Neut % (Auto) 67.8, Lymph % (Auto) 21.4, [place] % (Auto) 9.4, Eos % (Auto) 0.7, Baso % (Auto) 0.1, Absolute Neuts (auto) 6.0, Absolute Lymphs (auto) 1.91, Nucleated RBC % 0 Micro: Microbiology 09/14/23 22:00 Blood Culture (Wb) - Right Hand Blood Culture - Final No growth in 5 days. 09/15/23 22:00 Sputum, Expectorated/Coughed Gram Stain - Final 09/15/23 22:00 Sputum, Expectorated/Coughed Respiratory Culture - Final Pseudomonas aeruginosa 09/14/23 22:24 Blood Culture (Wb) - Anticubital Right Blood Culture - Preliminary Yeast Like Organism 09/15/23 00:07 Mucosa - Nasopharyngeal Respiratory Panel (PCR) - Final 09/14/23 21:26 Urine, Clean Catch Legionella Antigen - Final 09/14/23 21:26 Urine, Clean Catch Streptococcus pneumoniae Antigen (M - Final 09/14/23 20:00 Mucosa - Nose SARS-CoV-2, Influenza & RSV (PCR) - Final Physical Exam Const alert, oriented x3 and no apparent distress Constitutional Narrative: Elderly female, thin and cachectic appearing, appears older than stated age, fatigued appearing, otherwise sitting up fairly comfortably in bedside chair, conversing normally, in no acute distress. General Appearance: cooperative and comfortable HEENT normocephalic, head/scalp atraumatic, hearing grossly normal bilaterally and nasal mucous membranes and turbinates normal Eyes PERRL, EOMs intact bilaterally and conjunctivae normal Neck full ROM Chest inspection of chest normal Resp normal respiratory effort and no use of accessory muscles Resp Narrative: Mild to moderately decreased breath sounds throughout bilaterally, no wheezing or crackles noted. Cardio regular rate, regular rhythm, no murmurs and peripheral pulses 2+ throughout GI normal to inspection, nondistended, normoactive bowel sounds, soft to palpation, non-tender and non-distended Back/Spine normal ROM Extremity normal to inspection, full ROM and no pedal edema Skin no rashes or lesions noted Neuro moves all extremities and no focal motor deficits Speech: speech normal Psych mental status grossly normal Assessment & Plan Assessment/Plan (1) Pneumonia: (2) COPD exacerbation: (3) Generalized weakness: (4) Fungemia: PLAN: Plan Patient is a 68-year-old female who presented to [facility] ED on 09/14/2023 with worsening shortness of breath on exertion and generalized fatigue. 1. Acute hypoxia on chronic respiratory failure secondary to left lower lobe pneumonia and acute COPD exacerbation On home 2 L nasal cannula, presented with worsening shortness of breath with exertion and worsening hypoxia. Chest x-ray showed left lower lobe pneumonia. Afebrile, hemodynamically stable, no leukocytosis, did not meet sepsis criteria on admission. Respiratory culture grew 1+ Pseudomonas, infectious workup otherwise negative. ? Continue treatment with IV Solu-Medrol, scheduled DuoNebs, IV ceftriaxone and azithromycin. Wean supplemental oxygen as able. Will need home O2 eval to evaluation prior to discharge to see if patient needs higher than 2 L nasal cannula on discharge. 2. Fungemia ? Infectious disease following. Yeast like organisms noted on 09/13 blood culture, unclear source. Currently treating with micafungin. TTE unremarkable. RAFAELA ordered, will likely be done on 09/20. N.p.o. at midnight. 3. Odynophagia with recent weight loss, severe malnutrition ? GI following. EGD on 09/19 showed a moderate Schatzki ring that was dilated, was otherwise unremarkable. BMI 17.7 on admit, patient reported approximately 20 pounds of weight loss over the past 2 to 3 months. 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 Nutrition following, recommendation is for regular diet with Ensure 4 times daily when medically appropriate. Chronic medical conditions: ? GERD: Continue home famotidine. ? Allergies: Continue home Flonase and loratadine. ? Anxiety: Continue home diazepam as needed. ? Hypertension: Continue home Toprol. DVT prophylaxis: Lovenox CODE STATUS: Full code, verified Expected disposition: Home, 2 to 3 days Total clinical time spent by myself addressing the patient's medical issues, reviewing all the data, and collaborating with patient's care team: 35 minutes. Charges/Coding Visit Charges Inpatient E&M: 51023 Subs Hosp L2
[2023-09-20] MEDS: Lactated Ringers 1,000 ML 15 ML IV (11:51)
--- NOTE | 2023-09-20 13:24 | OP.CCLET_ITS ---
09/20/2023 Krish Martinez [address] [place] [address] Re : Upper GI endoscopy procedure for Jessica Gloria Dear Dr. Martinez This procedure was performed on Wednesday, September 20, 2023. My impressions and recommendations are as follows: Impressions : - Z-line irregular, 38 cm from the incisors. Biopsied. - Moderate Schatzki ring. Dilated. - No gross lesions in the entire stomach. - No gross lesions in the second portion of the duodenum. Biopsied. Recommendations : - Discharge patient to home. - Resume previous diet. - Continue present medications. - Await pathology results. My findings are described in the full procedure note, which is enclosed. If I can be of further assistance, please feel free to contact me at . Sincerely, Ralph Spann, 09/20/2023 1:23:36 PM This report has been signed electronically.
--- NOTE | 2023-09-20 13:24 | OP.EGD_ITS ---
Patient Name: Jessica Gloria Procedure Date: 09/20/2023 1:07 PM Date of : 1955 Age: 68 Procedure: Upper GI endoscopy Indications: Dysphagia Providers: Ralph Spann DO Medicines: Monitored Anesthesia Care Patient Profile: This is a 68 year old female. Refer to note in patient chart for documentation of history and physical. Patient has symptoms of dysphagia with both liquids and solids. Complications: No immediate complications. Procedure: Pre-Anesthesia Assessment: - Prior to the procedure, a History and Physical was performed, and patient medications and allergies were reviewed. The patient is competent. The risks and benefits of the procedure and the sedation options and risks were discussed with the patient. All questions were answered and informed consent was obtained. Patient identification and proposed procedure were verified by the physician in the pre-procedure area. Mental Status Examination: alert and oriented. Airway Examination: normal oropharyngeal airway and neck mobility. Respiratory Examination: clear to auscultation. CV Examination: normal. Prophylactic Antibiotics: The patient does not require prophylactic antibiotics. Prior Anticoagulants: The patient has taken no anticoagulant or antiplatelet agents. ASA Grade Assessment: IV - A patient with severe systemic disease that is a constant threat to life. After reviewing the risks and benefits, the patient was deemed in satisfactory condition to undergo the procedure. The anesthesia plan was to use monitored anesthesia care (MAC). Immediately prior to administration of medications, the patient was re-assessed for adequacy to receive sedatives. The heart rate, respiratory rate, oxygen saturations, blood pressure, adequacy of pulmonary ventilation, and response to care were monitored throughout the procedure. The physical status of the patient was re-assessed after the procedure. After obtaining informed consent, the endoscope was passed under direct vision. Throughout the procedure, the patient's blood pressure, pulse, and oxygen saturations were monitored continuously. The gastroscope was introduced through the mouth, and advanced to the second part of duodenum. The upper GI endoscopy was accomplished without difficulty. The patient tolerated the procedure well. Scope In: 1:10:59 PM Scope Out: 1:16:39 PM Total Procedure Duration Time 0 hours 5 minutes 40 seconds Findings: The Z-line was irregular and was found 38 cm from the incisors. Biopsies were taken with a cold forceps for histology. Verification of patient identification for the specimen was done. Estimated blood loss was minimal. A moderate Schatzki ring was found in the lower third of the esophagus. A guidewire was placed and the scope was withdrawn. Dilation was performed with a Savary dilator with no resistance at 54 Fr. The dilation site was examined and showed moderate improvement in luminal narrowing. Estimated blood loss was minimal. No gross lesions were noted in the entire examined stomach. No gross lesions were noted in the second portion of the duodenum. Biopsies were taken with a cold forceps for histology. Verification of patient identification for the specimen was done. Estimated blood loss was minimal. Impression: - Z-line irregular, 38 cm from the incisors. Biopsied. - Moderate Schatzki ring. Dilated. - No gross lesions in the entire stomach. - No gross lesions in the second portion of the duodenum. Biopsied. Recommendation: - Discharge patient to home. - Resume previous diet. - Continue present medications. - Await pathology results. Procedure Code(s): --- Professional --- 78104, Esophagogastroduodenoscopy, flexible, transoral; with insertion of guide wire followed by passage of dilator(s) through esophagus over guide wire 31164, 59, Esophagogastroduodenoscopy, flexible, transoral; with biopsy, single or multiple CPT copyright 2021 [employer]. All rights reserved. The codes documented in this report are preliminary and upon material crew supervisor review may be revised to meet current compliance requirements. Ralph Spann DO 09/20/2023 1:23:36 PM This report has been signed electronically. Number of Addenda: 0 Note Initiated On: 09/20/2023 1:07 PM
--- NOTE | 2023-09-20 15:06 | ECHOTEE_ITS ---
Reason For Study: R/O Endocarditis Medication RAFAELA probe 6VT-D (SN [id number]) passed without difficulty. No complications were noted. Cetacaine Topical Norcatur given X3 orally. Versed 1 mg given slow IVP. Fentanyl 50 mcg given slow IVP. Performed a rapid injection of agitated mix of 9 cc saline and 1cc air to assess for atrial septal defect. Left Ventricle Normal LV size. Left ventricular systolic function is normal. The estimated ejection fraction is 60 %. No regional wall motion abnormalities noted. Right Ventricle Normal RV size. Normal systolic function. Atria Normal atrial septum. Normal left atrium. No thrombus is detected in the left atrial appendage. Normal right atrium. Mitral Valve Normal mitral valve. Tricuspid Valve Normal tricuspid valve. Mild tricuspid valve insufficiency. Aortic Valve Normal aortic valve. Trisinus/trileaflet aortic valve. Pulmonic Valve Normal pulmonic valve. Vessels Normal aortic root. Mild atherosclerosis of the aortic arch. The pulmonary artery is normal size. Pericardium No pericardial effusion. ECHO/Echo Transesophageal (RAFAELA) Interpretation Summary Normal LV size. Left ventricular systolic function is normal. The estimated ejection fraction is 60 %. Trisinus/trileaflet aortic valve. No evidence of vegetation or embolic source noted. Ordering Physician: Eric Rios Referring Physician: MD Michelle Krish Performed By: Anna Bueno RDCS
--- NOTE | 2023-09-20 15:25 | EGD_PTH ---
PATIENT: LACEY NICOLE LOC: MS3 U#:[id number] AGE/SX: 68/F ROOM: [facility] RE09/14/[address]: Dr. Jorge Luis Serra DO : 1955 BED: 1 DIS: 09/22/2023 SPEC #: [id number] RECD: 09/20/23 18:24 STATUS: JAMAAL REJuan #: [id number] NIGHAT: 09/20/23 15:[address]: Jorge Luis Serra DEPT: SURGICAL PATHOLOGY RECD BY: Elva Álvarez ENTERED: 09/21/23 08:54 SP TYPE: EGD BIOPSY OTHR DR: MD Dr. Krish Garces MD Dr. Nana Yaa Koram, MD Dr. Robert Leininger, MD Tissues: A - Duodenum, NOS B - Esophagus, NOS Procedures: Special Stain Group II Special Stain Group I Surgery Specimen Level IV GMS Stain (control) Alcian Blue/PAS (control) HEADER OPERATION: EGD with biopsy and dilatation PRE-OP DIAGNOSIS: Dysphagia and weight loss TISSUE SUBMITTED: A- Duodenum biopsy, B- Distal esophagus biopsy MICROSCOPIC DIAGNOSIS A. Duodenum, biopsy; No pathologic change. B. Distal esophagus, biopsy; Gastroesophageal junctional mucosa with mild chronic inflammation. Focal acute inflammation. No evidence of goblet cell metaplasia. No evidence of fungal organisms. See comment. OLGA/ 09/22/2023 COMMENT B. Alcian blue/PAS stain with matched control supports the above diagnosis. GMS stain with matched control was used in the evaluation of this case. MICROSCOPIC DESCRIPTION Slides are reviewed. GROSS DESCRIPTION A. Received in fixative is one container labeled with the patient's name and designated Duodenum biopsy. The specimen consists of multiple irregular fragments of light smith soft tissue that in aggregate measure 0.6 x 0.5 x 0.1 cm. The specimen is totally submitted in one cassette. B. Received in fixative is one container labeled with the patient's name and designated Distal esophagus biopsy. The specimen consists of two irregular fragments of light smith soft tissue that in aggregate measure 0.6 x 0.5 x 0.1 cm. The specimen is totally submitted in one cassette. INES/ 09/21/2023 TC:2 CPT: 37742,33967,72902
[2023-09-20] MEDS: Ensure Plus High Protein 120 ML LIQUID PO ×2 (15:56→21:16)
--- NOTE | 2023-09-20 16:16 | PCM.PN.ID ---
Physical Exam Narrative EGD done, feeling better, some cough, no fever. Const alert and no apparent distress General Appearance: cooperative Resp normal air movement and clear to auscultation bilaterally Cardio regular rate and regular rhythm GI soft to palpation, non-tender and non-distended Skin no rashes or lesions noted ID ID: Route of nutrition/ use of supplements: [] Nutritional Intake: [] IV Site: [] Chavez Catheter: [] Assessment & Plan Assessment/Plan (1) Pneumonia: PLAN: UAg neg. On azithro/ceftriaxone. New yeast like (+) Bcx. Will check RAFAELA. Cont micafungin. Sputum with 1+ PsA but no fever, on baseline 2L O2, feeling better. Will stop azithro today. Will follow (2) COPD exacerbation:
[2023-09-20] MEDS: Ceftriaxone 1 GM/50 ML BAG IV (21:11)
[2023-09-21] VITALS (10 sets, daily range): BP systolic 114–139; BP diastolic 59–68; PULSE 68–115; RESP 18–20; TEMP 36.2–36.8; O2SAT 90–100; BMI 18.4
[2023-09-21] MEDS: HYDROcodone Bitartrate/Apap 5/325 Tablet PO ×4 (06:07→20:16)
[2023-09-21] MEDS: Ipratropium/Albuterol Sulfate 3 ML AMPUL.NEB INHALATION ×3 (07:08→19:02)
[2023-09-21 07:18] LABS: Absolute Lymphocyte Count 1.87 X10^3/uL (0.83-4.51); Absolute Neutrophil Count 5.6 X10^3/uL (2.0-7.7); Basophil# 0.01 X10^3/uL; Basophil% 0.1 % (0-1); Eosinophil# 0.15 X10^3/uL; Eosinophils% 1.8 % (0-5); Hematocrit 33.8 % (37-47); Hemoglobin 10.4 g/dL (12.0-15.0); Lymphocyte # 1.87 X10^3/ul (0.83-4.51); Lymphocyte % 22.2 % (19-41); Mean Corp Hgb Conc 30.8 g/dL (32-36); Mean Corpuscular Hgb 29.8 pg (27.0-32.0); Mean Corpuscular Volume 96.8 fL (81-99); Mean Platelet Vol. 8.9 fl (6.2-12.0); Monocyte# 0.73 X10^3/uL; Monocyte% 8.7 % (0-10); NRBC Flagged by Analyzer 0 % (0-5); Neutrophil # 5.61 X10^3/uL (2.7-7.7); Neutrophil % 66.6 % (47-70); Platelet Count 318 K/mm3 (150-450); RBC Distribution Width CV 13.1 % (11.6-14.6); RBC Distribution Width SD 46.5 fl (35.1-43.9); Red Blood Count 3.49 M/mm3 (4.2-5.4); White Blood Count 8.4 K/mm3 (4.4-11.0)
[2023-09-21 08:05] LABS: Anion Gap 2 (5-15); BUN 22 mg/dL (7-18); BUN/Creat Ratio 62.5 RATIO (10-20); Calcium,Total 8.2 mg/dL (8.5-10.1); Chloride 95 mmol/L (98-107); Creatinine, Serum 0.35 mg/dL (0.55-1.02); EST Glomerular Filtration Rate 197 mL/min (>60); Est Glom Filt Rate - Afr Amer 238 mL/min (>60); Estimated Creatinine Clearance 50.01 ml/min; Glucose 83 mg/dL (74-106); Potassium 4.2 mmol/L (3.5-5.1); Sodium Level 135 mmol/L (136-145)
[2023-09-21] MEDS: predniSONE 20 MG Tablet 40 MG PO (09:28)
[2023-09-21] MEDS: Fluticasone 0.05% 1 SPRAY NASAL.SRY NASAL ×2 (09:28→21:19)
[2023-09-21] MEDS: Metoprolol(XL)Succ 25 MG Tablet PO (09:28)
[2023-09-21] MEDS: Docusate Sodium 100 MG Capsule PO (09:28)
[2023-09-21] MEDS: Menthol/Lanolin/Calamine/Znox 113 GM Tube 1 APPLIC TOPICAL ×2 (09:28→21:19)
[2023-09-21] MEDS: Famotidine 20 MG Tablet PO (09:28)
[2023-09-21] MEDS: 0.9% Saline Lock 10 ML Syringe IV (09:29)
[2023-09-21] MEDS: Enoxaparin 30 MG/0.3 ML Syringe SC (09:29)
[2023-09-21] MEDS: Micafungin Sodium 100 MG in Dextrose 5%-Water (100mL Bag) 100 ML IV (09:29)
[2023-09-21] MEDS: Ensure Plus High Protein 120 ML LIQUID PO ×4 (09:29→21:17)
--- NOTE | 2023-09-21 11:43 | PN.HOSP_ITS ---
Reason for Visit Reason for Visit: Diagnoses Unspecified mycosis (09/14/23) Pneumonia, unspecified organism (09/14/23) Chronic obstructive pulmonary disease with (acute) exacerbation (09/14/23) Weakness (09/14/23) Subjective Subjective No acute events overnight. Patient seen at bedside this morning, present. Patient was sitting up in bed, conversing normally, no acute distress. She appeared to have a better energy level this morning than yesterday. Patient states she had her RAFAELA done this morning and tolerated this without issue. She feels hungry this morning and was looking forward to eating when able. She denies any pain or discomfort this morning. States that she has not felt hungry in 1 to 2 months and generally feels like he has more energy than previously, and she is excited about this. She is hoping to go home in the next few days. No other acute concerns this morning. Objective Data Objective Data Vital Signs: Vital Signs Temp Pulse Resp BP Pulse Ox O2 Del Method O2 Flow Rate 97.6 F L 72 18 114/63 96 Nasal Cannula 2 09/21/23 08:55 09/21/23 09:28 09/21/23 08:55 09/21/23 08:55 09/21/23 10:40 09/21/23 09:19 09/21/23 10:40 FiO2 2 09/15/23 05:31 Oxygen Flow Rate (L/min) [ 3 AMBULATING with Oxygen #2] Oxygen Flow Rate (L/min) [ 2 AMBULATING with Oxygen #1] Oxygen Flow Rate (L/min) [At 2 REST with Oxygen] Oxygen Flow Rate (L/min) 2 Oxygen Delivery Method Nasal Cannula Weight: 45.8 kg Body Mass Index (BMI) 18.4 Intake & Output: Intake and Output for Last 24 Hours 09/19/23 09/20/23 09/21/23 23:59 23:59 23:59 Intake Total 2114 523.25 / 523.25 105 / 105 Output Total 375 / 375 Balance 2114 148.25 / 148.25 105 / 105 Medical Nutrition Assessment Dietitian: Malnutrition Criteria Met Start: 09/15/23 12:38 Freq: Status: Active Protocol: Document 09/20/23 11:25 AG (Rec: 09/20/23 11:25 AG Desktop) Nutrition Malnutrition Evidence of Malnutrition Exists Yes Malnutrition (severe): Chronic Evidenced By Suboptimal Energy Intake ( Severe),Weight Loss (Severe), Physical Changes (Severe) Clinical Problem Chronic Disease or Condition Related Malnutrition Etiology severe, chronic malnutrition related to inadequate energy intake w/ increased energy needs d/t COPD Signs/Symptoms as evidenced by unintentional 15.6#/15% wt loss x 2 months, estimated PO intake meeting < 75% of estimated energy needs x 2 months, severe muscle wasting/fat loss evident per physical exam in orbital, clavicle, acromion, and temporal areas Status Active Problem Recommendation Dietitian Recommendations/Changes when medically appropriate, recommend regular diet, ensure plus high protein 120mL 4x/ day w/ medpass given evidence of malnutrition; if symptoms to do not improve w/ EGD/ dilation, recommend BATTERY CONTAINER TESTER evaluation Lab / Micro Data 09/21/23 06:56 09/21/23 06:56 Labs: Laboratory Results - last 24 hr 09/21/23 06:56: WBC 8.4, RBC 3.49 L, Hgb 10.4 L, Hct 33.8 L, MCV 96.8, MCH 29.8, MCHC 30.8 L, RDW Std Deviation 46.5 H, RDW Coeff of Stormy 13.1, Plt Count 318, MPV 8.9, Immature Gran % (Auto) 0.600, Neut % (Auto) 66.6, Lymph % (Auto) 22.2, [place] % (Auto) 8.7, Eos % (Auto) 1.8, Baso % (Auto) 0.1, Absolute Neuts (auto) 5.6, Absolute Lymphs (auto) 1.87, Nucleated RBC % 0, Sodium 135 L, Potassium 4.2, Chloride 95 L, Carbon Dioxide 38.0 H, Anion Gap 2 L, BUN 22 H, Creatinine 0.35 L , Estim Creat Clear Calc 50.01, Est GFR (MDRD) Af Amer 238, Est GFR (MDRD) Non- Af 197, BUN/Creatinine Ratio 62.5 H, Glucose 83, Calcium 8.2 L Micro: Microbiology 09/18/23 09:35 Blood Culture (Wb) - Left Wrist Blood Culture - Preliminary No growth in 48 hours. 09/19/23 08:58 Blood Culture (Wb) - Anticubital Right Blood Culture - Preliminary No growth in 48 hours. 09/14/23 22:24 Blood Culture (Wb) - Anticubital Right Blood Culture - Final Yeast Like Organism 09/14/23 22:00 Blood Culture (Wb) - Right Hand Blood Culture - Final No growth in 5 days. 09/15/23 22:00 Sputum, Expectorated/Coughed Gram Stain - Final 09/15/23 22:00 Sputum, Expectorated/Coughed Respiratory Culture - Final Pseudomonas aeruginosa 09/15/23 00:07 Mucosa - Nasopharyngeal Respiratory Panel (PCR) - Final 09/14/23 21:26 Urine, Clean Catch Legionella Antigen - Final 09/14/23 21:26 Urine, Clean Catch Streptococcus pneumoniae Antigen (M - Final 09/14/23 20:00 Mucosa - Nose SARS-CoV-2, Influenza & RSV (PCR) - Final Radiography Diagnostic Testing: Radiology Impression Transesophageal Echocardiogram 09/20/23 15:06 Interpretation Summary Normal LV size. Left ventricular systolic function is normal. The estimated ejection fraction is 60 %. Trisinus/trileaflet aortic valve. No evidence of vegetation or embolic source noted. Ordering Physician: Eric Rios Referring Physician: MD Michelle Krish Performed By: Anna Bueno, [facility] Physical Exam Const alert, oriented x3 and no apparent distress Constitutional Narrative: Elderly female, thin and cachectic appearing, appears older than stated age, energy much improved today, sitting up comfortably in bed, conversing normally, no acute distress. General Appearance: cooperative and comfortable HEENT normocephalic, head/scalp atraumatic, hearing grossly normal bilaterally and nasal mucous membranes and turbinates normal Eyes PERRL, EOMs intact bilaterally and conjunctivae normal Neck full ROM Chest inspection of chest normal Resp normal respiratory effort and no use of accessory muscles Resp Narrative: Mild to moderately decreased breath sounds throughout bilaterally, no wheezing or crackles noted. Cardio regular rate, regular rhythm, no murmurs and peripheral pulses 2+ throughout GI normal to inspection, nondistended, normoactive bowel sounds, soft to palpation, non-tender and non-distended Back/Spine normal ROM Extremity normal to inspection, full ROM and no pedal edema Skin no rashes or lesions noted Neuro moves all extremities and no focal motor deficits Speech: speech normal Psych mental status grossly normal Assessment & Plan Assessment/Plan (1) Pneumonia: (2) COPD exacerbation: (3) Generalized weakness: (4) Fungemia: PLAN: Plan Patient is a 68-year-old female who presented to [facility] ED on 09/14/2023 with worsening shortness of breath on exertion and generalized fatigue. 1. Acute hypoxia on chronic respiratory failure secondary to left lower lobe pneumonia and acute COPD exacerbation On home 2 L nasal cannula, presented with worsening shortness of breath with exertion and worsening hypoxia. Chest x-ray showed left lower lobe pneumonia. Afebrile, hemodynamically stable, no leukocytosis, did not meet sepsis criteria on admission. Respiratory culture grew 1+ Pseudomonas, infectious workup otherwise negative. ? Continue treatment with IV Solu-Medrol, scheduled DuoNebs, IV ceftriaxone. Azithromycin discontinued by ID on 09/19. Wean supplemental oxygen as able. Will need home O2 eval to evaluation prior to discharge to see if patient needs higher than 2 L nasal cannula on discharge. 2. Fungemia ? Infectious disease following. Yeast like organisms noted on 09/13 blood culture, unclear source. TTE unremarkable. RAFAELA on 09/20 with no acute findings. Continue micafungin for now, appreciate further ID recs. 3. Odynophagia with recent weight loss, severe malnutrition ? GI following. EGD on 09/19 showed a moderate Schatzki ring that was dilated, was otherwise unremarkable. BMI 17.7 on admit, patient reported approximately 2 0 pounds of weight loss over the past 2 to 3 months. 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 Nutrition following, recommendation is for regular diet with Ensure 4 times daily. Patient feels improved on 09/20 and has strong appetite, started regular diet with Ensure supplement and will monitor for further signs of pain with eating. Chronic medical conditions: ? GERD: Continue home famotidine. ? Allergies: Continue home Flonase and loratadine. ? Anxiety: Continue home diazepam as needed. ? Hypertension: Continue home Toprol. DVT prophylaxis: Lovenox CODE STATUS: Full code, verified Expected disposition: Home, 1 to 2 days Total clinical time spent by myself addressing the patient's medical issues, reviewing all the data, and collaborating with patient's care team: 35 minutes. Charges/Coding Visit Charges Inpatient E&M: 30568 Subs Hosp L2
[2023-09-21] MEDS: diazePAM 2 MG Tablet PO (15:12)
--- NOTE | 2023-09-21 15:24 | PCM.PN.ID ---
Physical Exam Narrative Feeling better, no issues with RAFAELA. Appetite improved. No fever Const alert and no apparent distress General Appearance: cooperative Resp Auscultation: wheezes Cardio regular rate and regular rhythm GI soft to palpation, non-tender and non-distended Skin no rashes or lesions noted ID ID: Route of nutrition/ use of supplements: [] Nutritional Intake: [] IV Site: [] Chavez Catheter: [] Assessment & Plan Assessment/Plan (1) Pneumonia: PLAN: UAg neg. On ceftriaxone. New yeast like (+) Bcx. No veg seen on RAFAELA. Cont micafungin. Sputum with 1+ PsA but no fever, on baseline 2L O2, feeling better. Ok to stop ceftriaxone tomorrow. Plan for discharge will be po fluconazole 400mg x1, then fluconazole 200mg daily for 3 more days to finish course at home. Will follow (2) COPD exacerbation:
[2023-09-21] MEDS: Ceftriaxone 1 GM/50 ML BAG IV (21:17)
[2023-09-22] MEDS: HYDROcodone Bitartrate/Apap 5/325 Tablet PO ×2 (01:53→08:41)
[2023-09-22 01:59] VITALS: BP 152/60; PULSE 90; RESP 18; TEMP 36.5; O2SAT 96
[2023-09-22 06:00] VITALS: BMI 18.3
[2023-09-22] MEDS: Ipratropium/Albuterol Sulfate 3 ML AMPUL.NEB INHALATION (07:06)
[2023-09-22 07:07] VITALS: PULSE 70; RESP 20; O2SAT 95
[2023-09-22 07:31] LABS: Absolute Lymphocyte Count 1.39 X10^3/uL (0.83-4.51); Absolute Neutrophil Count 7.2 X10^3/uL (2.0-7.7); Basophil# 0.02 X10^3/uL; Basophil% 0.2 % (0-1); Eosinophil# 0.09 X10^3/uL; Eosinophils% 0.9 % (0-5); Hematocrit 33.5 % (37-47); Hemoglobin 10.6 g/dL (12.0-15.0); Lymphocyte # 1.39 X10^3/ul (0.83-4.51); Lymphocyte % 14.7 % (19-41); Mean Corp Hgb Conc 31.6 g/dL (32-36); Mean Corpuscular Hgb 30.6 pg (27.0-32.0); Mean Corpuscular Volume 96.8 fL (81-99); Mean Platelet Vol. 8.9 fl (6.2-12.0); Monocyte# 0.74 X10^3/uL; Monocyte% 7.8 % (0-10); NRBC Flagged by Analyzer 0 % (0-5); Platelet Count 330 K/mm3 (150-450); RBC Distribution Width CV 13.2 % (11.6-14.6); RBC Distribution Width SD 46.9 fl (35.1-43.9); Red Blood Count 3.46 M/mm3 (4.2-5.4); White Blood Count 9.5 K/mm3 (4.4-11.0)
[2023-09-22 07:52] LABS: Anion Gap 2 (5-15); BUN 17 mg/dL (7-18); BUN/Creat Ratio 55.4 RATIO (10-20); Calcium,Total 8.3 mg/dL (8.5-10.1); Chloride 94 mmol/L (98-107); Creatinine, Serum 0.31 mg/dL (0.55-1.02); EST Glomerular Filtration Rate 230 mL/min (>60); Est Glom Filt Rate - Afr Amer 279 mL/min (>60); Glucose 92 mg/dL (74-106); Potassium 4.3 mmol/L (3.5-5.1); Sodium Level 134 mmol/L (136-145)
[2023-09-22 08:32] VITALS: BP 102/72; PULSE 92; RESP 18; TEMP 36.7; O2SAT 97
[2023-09-22 08:41] VITALS: PULSE 92
[2023-09-22] MEDS: predniSONE 20 MG Tablet 40 MG PO (08:41)
[2023-09-22] MEDS: Famotidine 20 MG Tablet PO (08:41)
[2023-09-22] MEDS: Docusate Sodium 100 MG Capsule PO (08:41)
[2023-09-22] MEDS: guaiFENesin 10 ML UDC (200MG/10ML) 20 ML PO (08:41)
[2023-09-22] MEDS: Enoxaparin 30 MG/0.3 ML Syringe SC (08:41)
[2023-09-22] MEDS: Metoprolol(XL)Succ 25 MG Tablet PO (08:41)
[2023-09-22] MEDS: Fluconazole 100 MG Tablet 400 MG PO (08:42)
[2023-09-22] MEDS: Menthol/Lanolin/Calamine/Znox 113 GM Tube 1 APPLIC TOPICAL (08:42)
[2023-09-22] MEDS: Fluticasone 0.05% 1 SPRAY NASAL.SRY NASAL (08:42)
[2023-09-22] MEDS: Ensure Plus High Protein 120 ML LIQUID PO (08:45)
--- NOTE | 2023-09-22 10:42 | NS ---
Phone call from RN re: ONS Pt would like to try something other than ensure plus HP due to suspected lactose-intolerance. Explained to MARIN Toribio that ensure is suitable for lactose-intolerance but, will provide ensure clear with next tray for pt to try for tolerance and acceptance. Will continue ensure plus HP w/ medpass as ordered and add 240mL ensure clear with lunch and dinner tray for now. Plans for d/c today. Sara Guerin, MS, RD, LD
[2023-09-22] MEDS: 0.9% Saline Lock 10 ML Syringe IV (10:44)
[2023-09-22] MEDS: Ondansetron 4 MG/2 ML Vial IV (10:44)
[2023-09-22] MEDS: SimETHICONE 80 MG Chewable Tablet PO (10:44)
--- NOTE | 2023-09-22 11:25 | DS.PCM_ITS ---
Providers Date of Admission: 09/14/23 Date of Discharge: 09/22/23 Primary Care Physician: Dr. Krish Martinez MD Consultations 09/16/23 11:36 Consult: Infectious Disease Routine Consulting Provider: Eric Rios Reason for Consult: bacteremia (gram positive cocco bacilli) EMERGENT Consult: No Notified: Yes Date Notified: 09/16/23 Time Notified: 11:43 Method of Notification: Text 09/18/23 11:48 Consult: Gastroenterology Routine Consulting Provider: [facility] Reason for Consult: unexplained weight loss, difficulty with swallowing EMERGENT Consult: No Notified: Yes Date Notified: 09/18/23 Time Notified: 11:48 Method of Notification: Text Reason For Visit: general illness Diagnosis Discharge Diagnosis (1) Pneumonia: Status: Acute Code(s): J18.9 - Pneumonia, unspecified organism (2) COPD exacerbation: Status: Chronic Code(s): J44.1 - Chronic obstructive pulmonary disease with (acute) exacerbation Medications at Discharge Home Medications hydrocodone-acetaminophen 5-325mg 5mg-325mg 1 ea PO PRN PRN Pain 09/30/17 cholecalciferol (vitamin D3) 50 mcg (2,000 unit) tablet 2,000 unit PO DAILY supplement 11/18/18 famotidine 20 mg tablet 20 mg PO BID indigestion 12/04/21 tizanidine 4 mg capsule 4 mg PO BID PRN MUSCLE SPASMS 12/04/21 metoprolol succinate 25 mg tablet,extended release 24 hr 25 mg PO DAILY heart rate 02/05/22 loratadine 10 mg capsule 10 mg PO DAILY PRN Allergies #90 caps 06/18/22 fluticasone propionate 50 mcg/actuation nasal spray,suspension (Flonase Allergy Relief) 1 spray intranasal BID allergy #15.8 mL 04/23/23 ipratropium 20 mcg-albuterol 100 mcg/actuation mist for inhalation (Combivent Respimat) 1 puff inhalation Q6H see dx #4 grams 04/23/23 mometasone-formoterol HFA 200 mcg-5 mcg/actuation aerosol inhaler (Dulera) 2 puff inhalation BID copd #13 grams 06/14/23 alendronate 70 mg tablet 70 mg PO .qtuesday osteo 07/08/23 albuterol sulfate 90 mcg/actuation aerosol inhaler (Ventolin HFA) 2 puff inhalation Q4H PRN shortness of breath or wheezing #8.5 grams 07/12/23 ipratropium 0.5 mg-albuterol 3 mg (2.5 mg base)/3 mL nebulization soln 3 ml inhalation Q4H PRN PRN SOB &/OR WHEEZING #180 mL 08/06/23 albuterol sulfate 2.5 mg/3 mL (0.083 %) solution for nebulization 2.5 mg (3 mL) inhalation Q2H PRN PRN Dyspnea, wheezing #180 vials 09/08/23 diazepam 2 mg tablet 2 mg PO Q6H PRN PRN anxiety 09/14/23 docusate sodium 100 mg capsule (Colace) 100 mg PO DAILY 09/14/23 fluconazole 200 mg tablet 200 mg PO DAILY 3 days #3 tabs 09/22/23 Hospital Course Operations None Procedures EGD, EKG, Transesophageal Echo, Transthoracic echo and - (Chest x-ray, CT chest without contrast) Summary of Care Provided Minutes Spent on Discharge: 35 Hospital Course: Patient is a 68-year-old female who presented to [facility] ED on 09/14/2023 with worsening shortness of breath on exertion and generalized fatigue. Hospital course as noted below. Discharged home with no therapy needs in stable condition on 09/21. 1. Acute hypoxia on chronic respiratory failure secondary to left lower lobe pneumonia and acute COPD exacerbation On home 2 L nasal cannula, presented with worsening shortness of breath with e xertion and worsening hypoxia. Chest x-ray showed left lower lobe pneumonia. Afebrile, hemodynamically stable, no leukocytosis, did not meet sepsis criteria on admission. Respiratory culture grew 1+ Pseudomonas, infectious workup otherwise negative. ? Treated with IV Solu-Medrol, scheduled DuoNebs and IV ceftriaxone while inpatient with improvement back to baseline. Completed O2 eval prior to discharge and was stable on home 2 L nasal cannula. Continue home inhalers. 2. Fungemia ? Infectious disease followed. Yeast like organisms noted on 09/13 blood culture, unclear source. TTE and RAFAELA were both clear. Repeat blood cultures from 09/18 showed no growth at 48 hours. Treated with IV micafungin while inpatient. Per ID recs, given 1 dose of p.o. fluconazole 400 mg prior to discharge and then will complete 3-day course of fluconazole 150 mg daily. 3. Odynophagia with recent weight loss, severe malnutrition ? BMI 17.7 on admit, patient reported approximately 20 pounds of weight loss over the past 2 to 3 months. 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 ? GI followed. EGD on 09/19 showed a moderate Schatzki ring that was dilated, was otherwise unremarkable. No further needs from GI standpoint. ? Nutrition followed. Did note that patient met malnutrition criteria. Recommended regular diet with Ensure 4 times daily. ? Patient had good improvement of appetite on last few days of hospitalization. Recommended increasing p.o. intake at home as able with protein rich foods. Chronic medical conditions: ? GERD: Continue home famotidine. ? Allergies: Continue home Flonase and loratadine. ? Anxiety: Continue home diazepam as needed. ? Hypertension: Continue home Toprol. Total clinical time spent by myself addressing the patient's medical issues, reviewing all the data, and collaborating with patient's care team: 35 minutes. Physical Exam Const alert, oriented x3 and no apparent distress Constitutional Narrative: Elderly female, thin and cachectic appearing, appears older than stated age, energy much improved today, sitting up comfortably in bed, conversing normally, no acute distress. General Appearance: cooperative and comfortable HEENT normocephalic, head/scalp atraumatic, hearing grossly normal bilaterally and nasal mucous membranes and turbinates normal Eyes PERRL, EOMs intact bilaterally and conjunctivae normal Neck full ROM Chest inspection of chest normal Resp normal respiratory effort and no use of accessory muscles Resp Narrative: Mild to moderately decreased breath sounds throughout bilaterally, no wheezing or crackles noted. Cardio regular rate, regular rhythm, no murmurs and peripheral pulses 2+ throughout GI normal to inspection, nondistended, normoactive bowel sounds, soft to palpation, non-tender and non-distended Back/Spine normal ROM Extremity normal to inspection, full ROM and no pedal edema Skin no rashes or lesions noted Neuro moves all extremities and no focal motor deficits Speech: speech normal Psych mental status grossly normal Medical Records Data Medical Nutrition Assessment Dietitian: Malnutrition Criteria Met Start: 09/15/23 12:38 Freq: Status: Active Protocol: Document 09/20/23 11:25 AG (Rec: 03/25/24 11:25 AG Desktop) Nutrition Malnutrition Evidence of Malnutrition Exists Yes Malnutrition (severe): Chronic Evidenced By Suboptimal Energy Intake ( Severe),Weight Loss (Severe), Physical Changes (Severe) Clinical Problem Chronic Disease or Condition Related Malnutrition Etiology severe, chronic malnutrition related to inadequate energy intake w/ increased energy needs d/t COPD Signs/Symptoms as evidenced by unintentional 15.6#/15% wt loss x 2 months, estimated PO intake meeting < 75% of estimated energy needs x 2 months, severe muscle wasting/fat loss evident per physical exam in orbital, clavicle, acromion, and temporal areas Status Active Problem Recommendation Dietitian Recommendations/Changes when medically appropriate, recommend regular diet, ensure plus high protein 120mL 4x/ day w/ medpass given evidence of malnutrition; if symptoms to do not improve w/ EGD/ dilation, recommend CERTIFIED PROSTHETIST VICE PRESIDENT evaluation Weight / BMI Weight Weight: 45.6 kg Body Mass Index (BMI) 18.3 ABG / Lab / Microbiology Data 09/22/23 06:12 09/22/23 06:12 Laboratory: Laboratory Results - last 24 hr 09/22/23 06:12: WBC 9.5, RBC 3.46 L, Hgb 10.6 L, Hct 33.5 L, MCV 96.8, MCH 30.6, MCHC 31.6 L, RDW Std Deviation 46.9 H, RDW Coeff of Stormy 13.2, Plt Count 330, MPV 8.9, Immature Gran % (Auto) 0.400, Neut % (Auto) 76.0 H, Lymph % (Auto) 14.7 L, Marion % (Auto) 7.8, Eos % (Auto) 0.9, Baso % (Auto) 0.2, Absolute Neuts (auto) 7.2, Absolute Lymphs (auto) 1.39, Nucleated RBC % 0, Sodium 134 L, Potassium 4.3, Chloride 94 L, Carbon Dioxide 38.0 H, Anion Gap 2 L, BUN 17, Creatinine 0.31 L, Estim Creat Clear Calc 49.80, Est GFR (MDRD) Af Amer 279, Est GFR (MDRD) Non-Af 230, BUN/Creatinine Ratio 55.4 H, Glucose 92, Calcium 8.3 L Microbiology: Microbiology 09/14/23 22:24 Blood Culture (Wb) - Anticubital Right Blood Culture - Preliminary Yeast Like Organism 09/18/23 09:35 Blood Culture (Wb) - Left Wrist Blood Culture - Preliminary No growth in 48 hours. 09/19/23 08:58 Blood Culture (Wb) - Anticubital Right Blood Culture - Preliminary No growth in 48 hours. 09/14/23 22:00 Blood Culture (Wb) - Right Hand Blood Culture - Final No growth in 5 days. 09/15/23 22:00 Sputum, Expectorated/Coughed Gram Stain - Final 09/15/23 22:00 Sputum, Expectorated/Coughed Respiratory Culture - Final Pseudomonas aeruginosa 09/15/23 00:07 Mucosa - Nasopharyngeal Respiratory Panel (PCR) - Final 09/14/23 21:26 Urine, Clean Catch Legionella Antigen - Final 09/14/23 21:26 Urine, Clean Catch Streptococcus pneumoniae Antigen (M - Final 09/14/23 20:00 Mucosa - Nose SARS-CoV-2, Influenza & RSV (PCR) - Final Meaningful Use Info Meaningful Use Diagnoses (Choose all that apply): None applicable Discharge Plan Admission Admit Date/Time: 09/14/23 22:01 Primary Reason for Your Visit: Worsening fatigue and weakness Attending Provider: Jorge Luis Serra Primary Care Provider: Krish Martinez Consulting Providers: Holly Moses; Eric Rios; Francheska Tarango Discharge Orders/Prescriptions Prescriptions: New fluconazole 200 mg tablet 200 mg PO DAILY 3 Days Qty: 3 0RF Continued metoprolol succinate 25 mg tablet extended release 24 hr 25 mg PO DAILY famotidine 20 mg tablet 20 mg PO BID Patient Comments: take 1 tablet by mouth twice a day tizanidine 4 mg capsule 4 mg PO BID PRN (Reason: MUSCLE SPASMS) loratadine 10 mg capsule 10 mg PO DAILY PRN (Reason: Allergies) Qty: 90 3RF fluticasone propionate [Flonase Allergy Relief] 50 mcg/actuation spray,suspension 1 spray INTRANASAL BID Qty: 15.8 6RF Rx Instructions: administer into each nostril Combivent Respimat 20-100 mcg/actuation mist 1 puff inhalation Q6H Qty: 4 11RF ipratropium-albuterol 0.5 mg-3 mg(2.5 mg base)/3 mL solution for nebulization 3 ml inhalation Q4H PRN PRN (Reason: SOB &/OR WHEEZING) Qty: 180 6RF hydrocodone-acetaminophen 1 EACH tablet 1 ea PO PRN PRN (Reason: Pain) Patient Comments: 5 TIMES DAILY PRN FOR BACK PAIN cholecalciferol (vitamin D3) 2,000 UNIT tablet 2,000 unit PO DAILY alendronate 70 mg tablet 70 mg PO .qtuesday Patient Comments: take 1 tablet by mouth every week ON AN EMPTY STOMACH WITH 6-8 OZ... (REFER TO PRESCRIPTION NOTES). docusate sodium [Colace] 100 mg capsule 100 mg PO DAILY diazepam 2 mg tablet 2 mg PO Q6H PRN PRN (Reason: anxiety) Dulera 200-5 mcg/actuation HFA aerosol inhaler 2 puff inhalation BID Qty: 13 11RF albuterol sulfate [Ventolin HFA] 90 mcg/actuation HFA aerosol inhaler 2 puff INHALATION Q4H PRN (Reason: shortness of breath or wheezing) Qty: 8.5 6RF albuterol sulfate 2.5 mg /3 mL (0.083 %) solution for nebulization 2.5 mg INHALATION Q2H PRN PRN (Reason: Dyspnea, wheezing) Qty: 180 6RF Referrals / Follow Up: Krish Martinez MD [Primary Care Provider] - 09/28/23 10:00 am Disposition Disposition (needs filled in before D/C Order can be placed): Home, Self Care Charges/Coding Visit Charges Inpatient E&M: 33381 Disch Hosp >30min
--- NOTE | 2023-09-22 12:19 | CASEMGMT ---
Addendum entered by Quyen Reyna 09/22/23 14:59: DC instructions and summary uploaded to [facility] and sent at this time. Original Note: RN CM into pt room, pt sitting up in bed. Pt aware that [facility] will be out to see her and that palliative care is aware she is dc'ing today. Pt has FWW in room. Pt inquires on ensure clear and if it has lactose in it. Pt nurse called die engraving supervisor to inquire and she will come up to speak with pt regarding this. Per nurse, pt does not need ambulated on 2L. Pt ready for dc.
[2023-09-22 13:56] VITALS: BP 150/73; PULSE 86; RESP 18; TEMP 36.6; O2SAT 97
== END 2023-09-22 14:30 | disposition home health service (06) | DRG 177 ==
LOC: ED 21:39 → MS3 22:26
PROVIDERS: Internal Medicine Gastroenterology; Student in an Organized Health Care Education/Training Program; Admitting Provider Family Medicine; Emergency Provider Emergency Medicine; PCP Family Medicine; Visit Provider Hospitalist
PROC: 0DJ08ZZ Inspection of Upper Intestinal Tract, Via Natural or Artificial Opening Endoscopic (ICD-10-PCS; CPT 43235; principal; 2023-09-20 15:20)
DX: J15.1 Pneumonia due to Pseudomonas (principal); E43 Unspecified severe protein-calorie malnutrition; B49 Unspecified mycosis; J96.11 Chronic respiratory failure with hypoxia; E87.1 Hypo-osmolality and hyponatremia; J44.0 Chronic obstructive pulmonary disease with (acute) lower respiratory infection; J44.1 Chronic obstructive pulmonary disease with (acute) exacerbation; Z68.1 Body mass index [BMI] 19.9 or less, adult; K22.2 Esophageal obstruction; I10 Essential (primary) hypertension; F32.A Depression, unspecified; K21.9 Gastro-esophageal reflux disease without esophagitis; F17.210 Nicotine dependence, cigarettes, uncomplicated; E78.5 Hyperlipidemia, unspecified; F41.9 Anxiety disorder, unspecified; F51.04 Psychophysiologic insomnia; Z99.81 Dependence on supplemental oxygen; Z79.83 Long term (current) use of bisphosphonates; Z79.899 Other long term (current) drug therapy; Z86.16 Personal history of COVID-19
CPT/HCPCS: 36415; 71045; 80048; 80053; 81001; 84484; 85025; 87040; 87070; 87077; 87184; 87186; 87205; 87449; 87631; 87633; 88305; 88312; 88313; 93005; 93306; 93312; 93320; 93325; 94640; 94668; 97110; 97116; 97162; 97166; 97530; 97535; 97802; 97803; 99285; 99406; J7030; J7040; J7050; J7120; A4216; C1769; J2405

== ENCOUNTER → 2023-09-29 | Outpatient (CLI) | payer MEDICARE, SELFPAY ==
[2023-09-29 13:40] LABS: Hematocrit 33.9 % (37-47); Hemoglobin 10.3 g/dL (12.0-15.0); Mean Corp Hgb Conc 30.4 g/dL (32-36); Mean Corpuscular Hgb 29.8 pg (27.0-32.0); Mean Platelet Vol. 9.2 fl (6.2-12.0); Platelet Count 292 K/mm3 (150-450); RBC Distribution Width CV 13.9 % (11.6-14.6); RBC Distribution Width SD 49.6 fl (35.1-43.9); Red Blood Count 3.46 M/mm3 (4.2-5.4)
[2023-09-29 14:06] LABS: AST(SGOT) 17 U/L (15-37); Alanine Aminotransfer ALT/SGPT 29 U/L (13-56); Albumin, Serum 2.9 g/dL (3.2-5.0); Alkaline Phosphatase 54 U/L (45-117); Anion Gap 0 (5-15); BUN 17 mg/dL (7-18); BUN/Creat Ratio 38.5 RATIO (10-20); Bilirubin, Direct 0.11 mg/dL (0.00-0.30); Calcium,Total 8.6 mg/dL (8.5-10.1); Chloride 98 mmol/L (98-107); Creatinine, Serum 0.44 mg/dL (0.55-1.02); EST Glomerular Filtration Rate 152 mL/min (>60); Est Glom Filt Rate - Afr Amer 184 mL/min (>60); Globulin 3.8 g/dL (2.2-4.2); Glucose 88 mg/dL (74-106); Potassium 3.9 mmol/L (3.5-5.1); Protein, Total 6.7 g/dL (6.4-8.2); Sodium Level 136 mmol/L (136-145)
== END | disposition home or self-care (01) ==
LOC: LAB 12:18
PROVIDERS: PCP Family Medicine; Referring Provider Internal Medicine Infectious Disease; Visit Provider Internal Medicine Infectious Disease
DX: B37.7 Candidal sepsis (principal)
CPT/HCPCS: 36415; 80048; 80076; 85027; 87040